=== PATIENT | female | born 1945 | race Caucasian/White ===

== ENCOUNTER 2021-12-21 12:48 | Inpatient (IN) ==
[2021-12-21 13:28] LABS: Appearance Urine Cloudy (Clear); Bacteria Urine Automated Negative (Negative); Bilirubin Urine Negative (Negative); Blood Urine Trace (Negative); Color Urine Yellow; Glucose Urine UA Negative (Negative); Ketones Urine Negative (Negative); Leukocyte Esterase Urine Negative (Negative); Nitrite Urine Negative (Negative); Protein Urine 2+ (Negative); RBC Urine Automated >30 /hpf (0-4); Urobilinogen Urine Negative (Negative)
[2021-12-21 13:53] LABS: Albumin Globulin Ratio 1.2 (0.9-2); Albumin Level 3.3 gm/dl (3.4-5.0); BUN Creatinine Ratio 15.3 (10-20); Bilirubin,Total 0.4 mg/dl (0.2-1.0); Calcium 9.1 mg/dl (8.5-10.1); Est GFR (African American) 45.4 ml/min; Est GFR (Non-African American) 39.2 ml/min; Globulin 2.7 gm/dl (2.5-4.0); Potassium 4.4 mmol/L (3.5-5.1)
--- NOTE | 2021-12-21 14:05 | CT Scan Report ---
CT head/brain wo con CLINICAL HISTORY: 76 years-old Female with weakness. Acute weakness TECHNIQUE: Multiple axial CT images of the head were obtained without contrast. A dose lowering tech nique was utilized adhering to the principles of ALARA. COMPARISON: None. FINDINGS: No acute intracranial hemorrhage, midline shift, intracranial mass, hydrocephalus, territorial ischem ia or abnormal extra-axial collection. Involutional changes. White matter hypodensities are suggestiv e of chronic microvascular ischemic disease. The calvarium is intact. Small left sphenoid sinus air-fluid level. The mastoid air cells are clear. Unremarkable soft tissues and orbits. IMPRESSION: No acute intracranial abnormality. ACT 112: Negative or not required by law. The above report was generated using voice recognition software. It may contain grammatical, syntax o r spelling errors. Electronically signed by: Mani Ramos M.D. 12/21/2021 2:04 PM
--- NOTE | 2021-12-21 14:09 | XRay Report ---
XR chest 1V portable HISTORY: 76 years-old Female illness acute shortness of breath COMPARISON: CT abdomen and pelvis of same day TECHNIQUE: AP view of the chest FINDINGS: Cardiac silhouette is mildly enlarged. No pneumothorax or overt pulmonary edema. There is opacity of the lateral right lung base with blunting of the costophrenic angle. Trace pleural effusions. Degener ative changes of the shoulders and spine. IMPRESSION: 1. Cardiomegaly without pulmonary edema. 2. Trace pleural effusions with lateral right lung base opacities suggestive of atelectasis/scarring. ACT 112: Negative or not required by law. The above report was generated using voice recognition software. It may contain grammatical, syntax o r spelling errors. Electronically signed by: Mani Ramos M.D. 12/21/2021 2:07 PM
--- NOTE | 2021-12-21 14:18 | XRay Report ---
XR pelvis 1-2V routine HISTORY: 76 years-old Female recurrent falls acute pelvic pain status post fall COMPARISON: CT abdomen and pelvis of same day TECHNIQUE: AP view of the pelvis FINDINGS: Left hip total joint arthroplasty with acetabular revision/ORIF changes. Cerclage wires with a metall ic cage involves the proximal left femoral diaphysis. Demineralized appearance of the bones. The dist al portion of the left femoral stem is centrally positioned within the medullary space. There is asso ciated lateral cortical thickening suggestive of chronic remodeling. No definite evidence of acute chavez rdware loosening or periprosthetic fracture. There is moderate osteoarthritis of the right hip. No acute fracture or dislocation identified. IMPRESSION: 1. Moderate right hip osteoarthritis without acute fracture or dislocation identified. 2. Left hip total joint arthroplasty with chronic revision changes as above. ACT 112: Negative or not required by law. The above report was generated using voice recognition software. It may contain grammatical, syntax o r spelling errors. Electronically signed by: Mani Ramos M.D. 12/21/2021 2:17 PM
--- NOTE | 2021-12-21 14:29 | CT Scan Report ---
CT SCAN OF THE ABDOMEN AND PELVIS WITHOUT IV CONTRAST CLINICAL HISTORY: Falls. COMPARISON STUDY: No priors. TECHNIQUE: CT scan of the abdomen and pelvis is performed from the lung bases to the proximal femora. Images are reviewed in the axial, sagittal, and coronal planes. IV contrast was not administered for this examination as per the referring clinician. Note that the examination was performed in signific antly suboptimal fashion without oral and IV contrast. A dose lowering technique was utilized adherin g to the principles of ALARA. FINDINGS: Lung bases: The heart is normal in size and without pericardial effusion. There is some attenuation o f the cardiac blood pool as compared to the myocardium suggesting anemia. There are small pleural eff usions with dependent atelectasis. A small hiatal hernia is noted. Liver: The unenhanced liver is normal in size, contour, and attenuation. There is no intrahepatic vinny iary ductal dilatation. Gallbladder: Unremarkable. Spleen: Normal in size and attenuation. Pancreas: There is a 4.1 cm ovoid cystic lesion in the pancreatic body is seen on image #121. This co ntains internal calcification/debris. The pancreatic tail appears atrophic. The unenhanced pancreas p roximal pancreas is moderately atrophic and otherwise grossly unremarkable. Adrenal glands: Unremarkable. Kidneys: The unenhanced kidneys are atrophic. There is an obstructing calculus/cluster of calculi wit hin the left proximal ureter at the level of L4. This is best seen on axial image #212 and extends ap proximately 16 mm in length. This causes mild left hydronephrosis. No additional left renal calculi a re identified. Numerous nonobstructing right renal calculi measuring up to 14 mm. There is no right u reteral stone or hydronephrosis. There is no evidence of contour deforming renal mass lesion. Abdominal vasculature: The abdominal aorta is normal in course and caliber noting advanced atheroscle rotic calcification. Bowel: There is moderate colonic diverticulosis without CT evidence of acute diverticulitis. No bowel obstruction is seen. Submucosal fat deposition is seen throughout the right colon. This is a nonspec ific finding but has been described in the setting of chronic inflammation. The appendix is not iden tified and reported surgically absent. Peritoneum: There is no intraperitoneal free air or abdominal ascites. Lymphadenopathy: A mildly enlarged left iliac chain node seen on image #224 measures 13 mm in short a xis. No additional enlarged lymph nodes are seen in the abdomen or pelvis. Pelvic viscera: Evaluation of the pelvis is significantly degraded by streak artifact from a left hip arthroplasty. The bladder is normal as visualized. The uterus is surgically absent. No adnexal lesio n is seen. Skeletal structures: The skeletal structures are osteopenic. No lytic or blastic lesions are seen. A left hip arthroplasty is in place. Advanced arthritic change is seen in the right hip. There is moder ate lumbosacral spondylosis. There is an age indeterminant impacted fracture of the subcapital right femur. IMPRESSION: 1. There is an obstructing calculus/cluster of calculi in the left proximal ureter as above. This david sures up to 16 mm in length and causes mild left hydronephrosis. 2. Additional nonobstructing calculi are seen in the right kidney. 3. There is no evidence of solid organ injury in the abdomen or pelvis on this unenhanced examination . 4. There is an age indeterminant impacted fracture of the subcapital right femur which may be chronic . Correlate with clinical findings. 5. Small pleural effusions. 6. There is a pathologically indeterminant 4.1 cm ovoid cystic lesion in the distal pancreatic body. This contains internal calcification/debris. Nonemergent follow-up with GI for possible endoscopic ul trasound is recommended. 7. Colonic diverticulosis without CT evidence of acute diverticulitis. 8. Additional findings as above. ACT 112: Negative or not required by law. Electronically signed by: Horacio Motta M.D. 12/21/2021 2:27 PM
--- NOTE | 2021-12-21 14:29 | CT Scan Report ---
CT cervical spine wo con CT DOSE: 2049.56 mGy.cm CLINICAL HISTORY: 76 years-old Female with recurrent falls. Acute neck injury status post fall COMPARISON: None. TECHNIQUE: Multiple axial CT images of the cervical spine were obtained without contrast. A dose low ering technique was utilized adhering to the principles of ALARA. FINDINGS: Multilevel degenerative changes include severe intervertebral disc space narrowing at C5-C6 and moderate to severe disc space narrowing at C6-C7. 3 mm anterolisthesis C7 on T1 is likely second lv to chronic facet arthrosis. There is severe multilevel facet arthropathy. Minimal superior endpla te compression of the T1 and T2 vertebral bodies is likely chronic. No acute cervical spine fracture or subluxation identified. Multilevel neural foraminal narrowing. The cervical soft tissues appear unremarkable. The visualized lung apices appear clear. IMPRESSION: No acute cervical spine fracture or subluxation. ACT 112: Negative or not required by law. The above report was generated using voice recognition software. It may contain grammatical, syntax o r spelling errors. Electronically signed by: Mani Ramos M.D. 12/21/2021 2:27 PM
[2021-12-21 14:36] LABS: Magnesium 1.5 mg/dl (1.7-2.4)
--- NOTE | 2021-12-21 14:36 | Emergency Department Note ---
History of Present Illness General Chief complaint: Illness Stated complaint: ILLNESS, NAUSEA, DECREASE IN MOBLITY Time Seen by Provider: 12/21/21 13:33 History of Present Illness Provider complaint: Illness Maximum Pain Intensity: 3 76-year-old female presents emergency department for illness. She states she been feeling increasingly weak. She reports she is not been able to eat or drink properly. Patient reports she has fallen repeatedly. He reports diffuse myalgias. Patient reports that her symptoms have worsened since being released from the hospital in [facility] Home Medications Medication Instructions Recorded Confirmed Type acetaminophen 300 mg-codeine 30 mg 1 tab PO Q6H PRN Moderate Pain 12/21/21 12/21/21 History tablet (Scale Score 5-6) albuterol sulfate 2.5 mg/3 mL 2.5 mg inhalation Q4H PRN 12/21/21 12/21/21 History (0.083 %) solution for nebulization Shortness Of Breath albuterol sulfate 90 mcg/actuation 2 puff inhalation DIRECTED PRN 12/21/21 History aerosol inhaler Shortness Of Breath alprazolam 0.5 mg tablet (Xanax) 0.5 mg PO BID PRN Sleep 12/21/21 12/21/21 History aspirin 81 mg tablet 81 mg PO DAILY 12/21/21 12/21/21 History carvedilol 12.5 mg tablet (Coreg) 12.5 mg PO BID 12/21/21 12/21/21 History clonidine HCl 0.2 mg tablet 0.2 mg PO BID 12/21/21 12/21/21 History ergocalciferol (vitamin D2) 1,250 1,250 mcg PO WK 12/21/21 12/21/21 History mcg (50,000 unit) capsule (Vitamin D2) hydralazine 100 mg tablet 100 mg PO TID 12/21/21 12/21/21 History loratadine 10 mg tablet (Claritin) 10 mg PO DAILY 12/21/21 12/21/21 History losartan 50 mg tablet 50 mg PO DAILY 12/21/21 12/21/21 History mirtazapine 30 mg tablet (Remeron) 30 mg PO HS 12/21/21 12/21/21 History pantoprazole 40 mg tablet,delayed 40 mg PO HS 10/04/22 10/04/22 History release (Protonix) umeclidinium 62.5 mcg-vilanterol 1 inh inhalation DAILY 12/21/21 12/21/21 History 25 mcg/actuation powdr for inhalation (Anoro Ellipta) Allergies Allergy/AdvReac Type Severity Reaction Status Date / Time amlodipine Allergy Unknown PT'S LIST Verified 12/21/21 16:08 cefuroxime Allergy Unknown PT'S LIST Verified 12/21/21 16:08 Cephalosporins Allergy Unknown PT'S LIST Verified 12/21/21 16:08 ciprofloxacin Allergy Unknown PT'S LIST Verified 12/21/21 16:08 erythromycin base Allergy Unknown PT'S LIST Verified 12/21/21 16:08 Past Med/Surg History Medical History COPD (chronic obstructive pulmonary disease) Fracture of right hip HLD (hyperlipidemia) HTN (hypertension) No pertinent family history Rhabdomyolysis Surgical History History of hip surgery History of removal of ovarian cyst Hx of appendectomy Hx of hernia repair Hx of hysterectomy Family History Mother Coronary heart disease Father Coronary heart disease Brother Diabetes Brother Coronary heart disease Other Heart disease Hypertension Social History Smoking Status: Former smoker Second Hand Exposure: No; Do You Dip or Chew Tobacco: No; Tobacco Cessation Education Requested by Patient: No Hx Alcohol Use: No Hx Substance Use: No Preferred Language: Welsh Communication Ability: Effective Manager Call Required: No Beliefs That Will Affect Care: None Current Living Situation: Family Feels Safe at Home: Yes Safety Concerns: Feels Safe At This Time Assistive Devices: Oxygen - Continuous, Walker and Wheelchair Review of Systems A total of 10 systems reviewed and were otherwise negative Physical Exam Vital Signs Vital Signs - 24 hr 12/21/21 12:56 12/21/21 12:56 Temperature 37.1 C 37.1 C Temperature Source Oral Oral Pulse Rate 65 Pulse Rate [Finger] 65 Respiratory Rate 17 17 Respiratory Effort / Characteristics Non-Labored Non-Labored Respiratory Depth Normal Normal Blood Pressure 219/85 H Blood Pressure [Right Arm] 219/85 H Blood Pressure Mean 129 Blood Pressure Mean [Right Arm] 129 Blood Pressure Position Sitting Pulse Oximetry 99 99 Oxygen Delivery Method Nasal Cannula Nasal Cannula Oxygen Flow Rate 3 3 Sepsis Recent Fever Within 48 Hours No Sepsis New/Unexplained Change in Mental Status No Sepsis Action Taken by Nursing No Action Required Physical Exam HENT: Exam performed. -Head: Normocephalic and atraumatic. -Right Ear: External ear normal. No mastoid tenderness. -Left Ear: External ear normal. No mastoid tenderness. -Mouth/Throat: The oropharynx is clear and moist. No trismus in the jaw. No dental abscesses or uvula swelling. No oropharyngeal exudate or tonsillar abscesses. EYES: Conjunctivae and EOM are normal. Pupils are equal, round, and reactive to light. Right eye exhibits no discharge. Left eye exhibits no discharge. No s cleral icterus. NECK: Normal range of motion. Neck supple. No JVD present. No spinous process tenderness present. No carotid bruit present. No rigidity. No tracheal deviation and normal range of motion present. No Brudzinski's sign and no Kernig's sign noted. CV: Normal rate, regular rhythm, normal heart sounds and intact distal pulses. There is no peripheral edema. Palpable radial pulses bue. PULM/CHEST: Effort normal and breath sounds normal. No respiratory distress. No stridor. She has no wheezes. She has no rales. -Chest Wall: She exhibits no tenderness. ABD: The abdomen is soft. MUSC/SKEL: Pelvis stable NEURO: Motor and sensation grossly intact. GCS eye subscore is 4. GCS verbal mendosa bscore is 5. GCS motor subscore is 6. Cerebellar tests wnl. SKIN: Skin is warm and dry. She is not diaphoretic. PSYCH: She has a normal mood and affect. Behavior is normal. Judgment and thought content normal. Course Course 1333: The patient was evaluated in room B5. A complete history and physical exam was performed Administered Medications Discontinued Medications Hydromorphone HCl (Hydromorphone Inj 0.5 Mg/0.5 Ml Syr) 0.5 mg IV NOW STA Stop: 12/21/21 16:32 Last Admin: 12/21/21 16:53 Dose: 0.5 mg Documented By: HUMZA Magnesium Sulfate/Dextrose (Magnesium Sulfate / D5w) 1 gm in 100 mls @ 100 mls/hr IV NOW STA Stop: 12/21/21 16:31 Last Infusion: 12/21/21 16:59 Dose: 0 mls/hr Documented By: HUMZA(2) Admin: 12/21/21 15:53 Dose: 100 mls/hr Documented By: HUMZA(2) Nicardipine HCl 25 mg/ Sodium (Chloride) 250 mls @ 50 mls/hr IV .Q5H SABAS; Protocol Stop: 01/20/22 16:29 Last Admin: 12/21/21 16:47 Dose: Not Given Documented By: HUMZA(2) Losartan Potassium (Losartan Potassium 50 Mg Tab) 50 mg PO QAM STA Stop: 12/21/21 16:36 Last Admin: 12/21/21 16:47 Dose: Not Given Documented By: HUMZA(2) Losartan Potassium (Losartan Potassium 50 Mg Tab) 50 mg PO NOW STA Stop: 12/21/21 16:37 Last Admin: 12/21/21 16:53 Dose: 50 mg Documented By: HUMZA Medical Decision Making Laboratory Data Result diagrams: 12/21/21 13:00 12/21/21 13:00 Lab Results 12/21/21 12/21/21 12/21/21 Range/Units 13:00 13:00 13:00 WBC 12.94 H (4.8-10.8) K/ul RBC 2.88 L (3.93-5.22) M/uL Hgb 8.3 L (12.0-16.0) g/dl Hct 27.1 L (34.1-44.9) % MCV 94.1 (80.0-100.0) fL MCH 28.8 (25.0-34.0) pg MCHC 30.6 L (32.0-36.0) g/dL RDW Std Deviation 50.0 H (36.4-46.3) fL RDW Coeff of [place] 14.4 (11.5-14.5) % Plt Count 212 (130-400) K/uL MPV 10.5 (9.4-12.3) fL Immature Gran % (Auto) 0.6 % Neut % (Auto) 86.7 % Lymph % (Auto) 6.0 % [place] % (Auto) 5.7 % Eos % (Auto) 0.7 % Baso % (Auto) 0.3 % Neut # (Auto) 11.21 H (1.4-6.5) K/uL Lymph # (Auto) 0.78 L (1.2-3.4) K/uL [place] # (Auto) 0.74 (0.24-0.82) K/uL Eos # (Auto) 0.09 (0-0.50) K/uL Baso # (Auto) 0.04 (0-0.2) K/uL Immature Gran # (Auto) 0.08 H (0.00-0.02) K/uL PT 11.6 (9.0-12.0) Seconds INR 1.1 (0.9-1.1) APTT 30.5 (21.0-31.0) Seconds PTT Ratio 1.1 VBG pH (7.36-7.41) VBG pCO2 (38-50) mmHg VBG pO2 mmHg VBG HCO3 mmol/L VBG O2 Saturation % VBG Base Excess mEq/L Sodium 143 (136-145) mmol/L Potassium 4.4 (3.5-5.1) mmol/L Chloride 109 H (98-107) mmol/L Carbon Dioxide 27 (21-32) mmol/L Anion Gap 7 (3-11) BUN 20 (6-23) mg/dl Creatinine 1.31 H (0.6-1.2) mg/dl Est Cr Clr Drug Dosing 35.0 ml/min Est GFR ( Amer) 45.4 ml/min Est GFR (Non-Af Amer) 39.2 ml/min BUN/Creatinine Ratio 15.3 (10-20) Glucose 140 H (70-99(Fasting)) mg/dl Lactate (0.4-2.0) mmol/L Calcium 9.1 (8.5-10.1) mg/dl Magnesium (1.7-2.4) mg/dl Total Bilirubin 0.4 (0.2-1.0) mg/dl AST 8 L (13-39) U/L ALT 6 L (7-52) U/L Alkaline Phosphatase 65 (34-104) U/L Total Creatine Kinase (26-192) U/L Troponin I High Sens (0-14) pg/ml Total Protein 6.0 (6.0-8.3) gm/dl Albumin 3.3 L (3.4-5.0) gm/dl Globulin 2.7 (2.5-4.0) gm/dl Albumin/Globulin Ratio 1.2 (0.9-2) Lipase (11-82) U/L Urine Color Urine Appearance (Clear) Urine pH (4.5-7.5) Ur Specific [place] (1.000-1.030) Urine Protein (Negative) Urine Glucose (UA) (Negative) Urine Ketones (Negative) Urine Blood (Negative) Urine Nitrite (Negative) Urine Bilirubin (Negative) Urine Urobilinogen (Negative) Ur Leukocyte Esterase (Negative) Urine WBC (Auto) (0-5) /hpf Urine RBC (Auto) (0-4) /hpf U Hyaline Cast (Auto) (0-5) /lpf U Epithel Cells (Auto) (0-5) /lpf Urine Bacteria (Auto) (Negative) 12/21/21 12/21/21 12/21/21 Range/Units 13:00 13:10 14:37 WBC (4.8-10.8) K/ul RBC (3.93-5.22) M/uL Hgb (12.0-16.0) g/dl Hct (34.1-44.9) % MCV (80.0-100.0) fL MCH (25.0-34.0) pg MCHC (32.0-36.0) g/dL RDW Std Deviation (36.4-46.3) fL RDW Coeff of [place] (11.5-14.5) % Plt Count (130-400) K/uL MPV (9.4-12.3) fL Immature Gran % (Auto) % Neut % (Auto) % Lymph % (Auto) % [place] % (Auto) % Eos % (Auto) % Baso % (Auto) % Neut # (Auto) (1.4-6.5) K/uL Lymph # (Auto) (1.2-3.4) K/uL [place] # (Auto) (0.24-0.82) K/uL Eos # (Auto) (0-0.50) K/uL Baso # (Auto) (0-0.2) K/uL Immature Gran # (Auto) (0.00-0.02) K/uL PT (9.0-12.0) Seconds INR (0.9-1.1) APTT (21.0-31.0) Seconds PTT Ratio VBG pH 7.34 L (7.36-7.41) VBG pCO2 56 H (38-50) mmHg VBG pO2 59 mmHg VBG HCO3 30 mmol/L VBG O2 Saturation 92.1 % VBG Base Excess 3.1 mEq/L Sodium (136-145) mmol/L Potassium (3.5-5.1) mmol/L Chloride (98-107) mmol/L Carbon Dioxide (21-32) mmol/L Anion Gap (3-11) BUN (6-23) mg/dl Creatinine (0.6-1.2) mg/dl Est Cr Clr Drug Dosing ml/min Est GFR ( Amer) ml/min Est GFR (Non-Af Amer) ml/min BUN/Creatinine Ratio (10-20) Glucose (70-99(Fasting)) mg/dl Lactate (0.4-2.0) mmol/L Calcium (8.5-10.1) mg/dl Magnesium 1.5 L (1.7-2.4) mg/dl Total Bilirubin (0.2-1.0) mg/dl AST (13-39) U/L ALT (7-52) U/L Alkaline Phosphatase (34-104) U/L Total Creatine Kinase 12 L (26-192) U/L Troponin I High Sens 48.2 H (0-14) pg/ml Total Protein (6.0-8.3) gm/dl Albumin (3.4-5.0) gm/dl Globulin (2.5-4.0) gm/dl Albumin/Globulin Ratio (0.9-2) Lipase 61 (11-82) U/L Urine Color Yellow Urine Appearance Cloudy A (Clear) Urine pH 5.0 (4.5-7.5) Ur Specific [place] 1.020 (1.000-1.030) Urine Protein 2+ H (Negative) Urine Glucose (UA) Negative (Negative) Urine Ketones Negative (Negative) Urine Blood Trace H (Negative) Urine Nitrite Negative (Negative) Urine Bilirubin Negative (Negative) Urine Urobilinogen Negative (Negative) Ur Leukocyte Esterase Negative (Negative) Urine WBC (Auto) 1-5 (0-5) /hpf Urine RBC (Auto) >30 H (0-4) /hpf U Hyaline Cast (Auto) 1-5 (0-5) /lpf U Epithel Cells (Auto) 5-10 H (0-5) /lpf Urine Bacteria (Auto) Negative (Negative) 12/21/21 12/21/21 Range/Units 14:37 14:37 WBC (4.8-10.8) K/ul RBC (3.93-5.22) M/uL Hgb (12.0-16.0) g/dl Hct (34.1-44.9) % MCV (80.0-100.0) fL MCH (25.0-34.0) pg MCHC (32.0-36.0) g/dL RDW Std Deviation (36.4-46.3) fL RDW Coeff of [place] (11.5-14.5) % Plt Count (130-400) K/uL MPV (9.4-12.3) fL Immature Gran % (Auto) % Neut % (Auto) % Lymph % (Auto) % [place] % (Auto) % Eos % (Auto) % Baso % (Auto) % Neut # (Auto) (1.4-6.5) K/uL Lymph # (Auto) (1.2-3.4) K/uL [place] # (Auto) (0.24-0.82) K/uL Eos # (Auto) (0-0.50) K/uL Baso # (Auto) (0-0.2) K/uL Immature Gran # (Auto) (0.00-0.02) K/uL PT (9.0-12.0) Seconds INR (0.9-1.1) APTT (21.0-31.0) Seconds PTT Ratio VBG pH (7.36-7.41) VBG pCO2 (38-50) mmHg VBG pO2 mmHg VBG HCO3 mmol/L VBG O2 Saturation % VBG Base Excess mEq/L Sodium (136-145) mmol/L Potassium (3.5-5.1) mmol/L Chloride (98-107) mmol/L Carbon Dioxide (21-32) mmol/L Anion Gap (3-11) BUN (6-23) mg/dl Creatinine (0.6-1.2) mg/dl Est Cr Clr Drug Dosing ml/min Est GFR ( Amer) ml/min Est GFR (Non-Af Amer) ml/min BUN/Creatinine Ratio (10-20) Glucose (70-99(Fasting)) mg/dl Lactate 0.6 (0.4-2.0) mmol/L Calcium (8.5-10.1) mg/dl Magnesium (1.7-2.4) mg/dl Total Bilirubin (0.2-1.0) mg/dl AST (13-39) U/L ALT (7-52) U/L Alkaline Phosphatase (34-104) U/L Total Creatine Kinase 14 L (26-192) U/L Troponin I High Sens (0-14) pg/ml Total Protein (6.0-8.3) gm/dl Albumin (3.4-5.0) gm/dl Globulin (2.5-4.0) gm/dl Albumin/Globulin Ratio (0.9-2) Lipase (11-82) U/L Urine Color Urine Appearance (Clear) Urine pH (4.5-7.5) Ur Specific [place] (1.000-1.030) Urine Protein (Negative) Urine Glucose (UA) (Negative) Urine Ketones (Negative) Urine Blood (Negative) Urine Nitrite (Negative) Urine Bilirubin (Negative) Urine Urobilinogen (Negative) Ur Leukocyte Esterase (Negative) Urine WBC (Auto) (0-5) /hpf Urine RBC (Auto) (0-4) /hpf U Hyaline Cast (Auto) (0-5) /lpf U Epithel Cells (Auto) (0-5) /lpf Urine Bacteria (Auto) (Negative) Imaging Data Radiologist's Impression: Chest X-Ray 12/21/21 13:15 XR chest 1V portable HISTORY: 76 years-old Female illness acute shortness of breath COMPARISON: CT abdomen and pelvis of same day TECHNIQUE: AP view of the chest FINDINGS: Cardiac silhouette is mildly enlarged. No pneumothorax or overt pulmonary edema. There is opacity of the lateral right lung base with blunting of the costophrenic angle. Trace pleural effusions. Degenerative changes of the shoulders and spine. IMPRESSION: 1. Cardiomegaly without pulmonary edema. 2. Trace pleural effusions with lateral right lung base opacities suggestive of atelectasis/scarring. ACT 112: Negative or not required by law. The above report was generated using voice recognition software. It may contain grammatical, syntax or spelling errors. Electronically signed by: Mani Raoms M.D. 12/21/2021 2:[address] 12/21/21 13:36 CT head/brain wo con CLINICAL HISTORY: 76 years-old Female with weakness. Acute weakness TECHNIQUE: Multiple axial CT images of the head were obtained without contrast. A dose lowering technique was utilized adhering to the principles of ALARA. COMPARISON: None. FINDINGS: No acute intracranial hemorrhage, midline shift, intracranial mass, hydrocephalus, territorial ischemia or abnormal extra-axial collection. Involut ional changes. White matter hypodensities are suggestive of chronic microvascular ischemic disease. The calvarium is intact. Small left sphenoid sinus air-fluid level. The mastoid air cells are clear. Unremarkable soft tissues and orbits. IMPRESSION: No acute intracranial abnormality. ACT 112: Negative or not required by law. The above report was generated using voice recognition software. It may contain grammatical, syntax or spelling errors. Electronically signed by: Mani Ramos M.D. 12/21/2021 2:[address] 12/21/21 13:40 CT cervical spine wo con CT DOSE: 2049.56 mGy.cm CLINICAL HISTORY: 76 years-old Female with recurrent falls. Acute neck injury status post fall COMPARISON: None. TECHNIQUE: Multiple axial CT images of the cervical spine were obtained without contrast. A dose lowering technique was utilized adhering to the principles of ALARA. FINDINGS: Multilevel degenerative changes include severe intervertebral disc space narrowing at C5-C6 and moderate to severe disc space narrowing at C6-C7. 3 mm anterolisthesis C7 on T1 is likely secondary to chronic facet arthrosis. T here is severe multilevel facet arthropathy. Minimal superior endplate compression of the T1 and T2 vertebral bodies is likely chronic. No acute cervical spine fracture or subluxation identified. Multilevel neural foraminal narrowing. The cervical soft tissues appear unremarkable. The visualized lung apices appear clear. IMPRESSION: No acute cervical spine fracture or subluxation. ACT 112: Negative or not required by law. The above report was generated using voice recognition software. It may contain grammatical, syntax or spelling errors. Electronically signed by: Mani Ramos M.D. 12/21/2021 2:27 PM Abdomen/Pelvis CT 12/21/21 13:41 CT SCAN OF THE ABDOMEN AND PELVIS WITHOUT IV CONTRAST CLINICAL HISTORY: Falls. COMPARISON STUDY: No priors. TECHNIQUE: CT scan of the abdomen and pelvis is performed from the lung bases to the proximal femora. Images are reviewed in the axial, sagittal, and coronal planes. IV contrast was not administered for this examination as per the referring clinician. Note that the examination was performed in significantly suboptimal fashion without oral and IV contrast. A dose lowering technique was utilized adhering to the principles of ALARA. FINDINGS: Lung bases: The heart is normal in size and without pericardial effusion. There is some attenuation of the cardiac blood pool as compared to the myocardium suggesting anemia. There are small pleural effusions with dependent atelectasis. A small hiatal hernia is noted. Liver: The unenhanced liver is normal in size, contour, and attenuation. There is no intrahepatic biliary ductal dilatation. Gallbladder: Unremarkable. Spleen: Normal in size and attenuation. Pancreas: There is a 4.1 cm ovoid cystic lesion in the pancreatic body is seen on image #121. This contains internal calcification/debris. The pancreatic tail appears atrophic. The unenhanced pancreas proximal pancreas is moderately atrophic and otherwise grossly unremarkable. Adrenal glands: Unremarkable. Kidneys: The unenhanced kidneys are atrophic. There is an obstructing calculus/cluster of calculi within the left proximal ureter at the level of L4. This is best seen on axial image #212 and extends approximately 16 mm in length. This causes mild left hydronephrosis. No additional left renal calculi are identified. Numerous nonobstructing right renal calculi measuring up to 14 mm. There is no right ureteral stone or hydronephrosis. There is no evidence of contour deforming renal mass lesion. Abdominal vasculature: The abdominal aorta is normal in course and caliber noting advanced atherosclerotic calcification. Bowel: There is moderate colonic diverticulosis without CT evidence of acute diverticulitis. No bowel obstruction is seen. Submucosal fat deposition is seen throughout the right colon. This is a nonspecific finding but has been described in the setting of chronic inflammation. The appendix is not identified and reported surgically absent. Peritoneum: There is no intraperitoneal free air or abdominal ascites. Lymphadenopathy: A mildly enlarged left iliac chain node seen on image #224 measures 13 mm in short axis. No additional enlarged lymph nodes are seen in the abdomen or pelvis. Pelvic viscera: Evaluation of the pelvis is significantly degraded by streak artifact from a left hip arthroplasty. The bladder is normal as visualized. The uterus is surgically absent. No adnexal lesion is seen. Skeletal structures: The skeletal structures are osteopenic. No lytic or blastic lesions are seen. A left hip arthroplasty is in place. Advanced arthritic change is seen in the right hip. There is moderate lumbosacral spondylosis. There is an age indeterminant impacted fracture of the subcapital right femur. IMPRESSION: 1. There is an obstructing calculus/cluster of calculi in the left proximal ureter as above. This measures up to 16 mm in length and causes mild left hydronephrosis. 2. Additional nonobstructing calculi are seen in the right kidney. 3. There is no evidence of solid organ injury in the abdomen or pelvis on this unenhanced examination. 4. There is an age indeterminant impacted fracture of the subcapital right femur which may be chronic. Correlate with clinical findings. 5. Small pleural effusions. 6. There is a pathologically indeterminant 4.1 cm ovoid cystic lesion in the distal pancreatic body. This contains internal calcification/debris. Nonemergent follow-up with GI for possible endoscopic ultrasound is recommended. 7. Colonic diverticulosis without CT evidence of acute diverticulitis. 8. Additional findings as above. ACT 112: Negative or not required by law. Electronically signed by: Horacio Motta M.D. 12/21/2021 2:27 PM Pelvis X-Ray 12/21/21 13:41 XR pelvis 1-2V routine HISTORY: 76 years-old Female recurrent falls acute pelvic pain status post fall COMPARISON: CT abdomen and pelvis of same day TECHNIQUE: AP view of the pelvis FINDINGS: Left hip total joint arthroplasty with acetabular revision/ORIF changes. Cerclage wires with a metallic cage involves the proximal left femoral diaphysis. Demineralized appearance of the bones. The distal portion of the left femoral stem is centrally positioned within the medullary space. There is associated lateral cortical thickening suggestive of chronic remodeling. No definite evidence of acute hardware loosening or periprosthetic fracture. There is moderate osteoarthritis of the right hip. No acute fracture or dislocation identified. IMPRESSION: 1. Moderate right hip osteoarthritis without acute fracture or dislocation identified. 2. Left hip total joint arthroplasty with chronic revision changes as above. ACT 112: Negative or not required by law. The above report was generated using voice recognition software. It may contain grammatical, syntax or spelling errors. Electronically signed by: Mani Ramos M.D. 12/21/2021 2:17 PM ECG Data Indication: + weakness Rate (beats per minute): 66 Rhythm: + junctional ECG Intervals/blocks: + Normal QRS and + Normal QT-c ECG ST segments: + Normal ST segments MDM Narrative Cardiac monitoring: An order was placed for continuous cardiac monitoring. The monitor shows a rate of 70 with sinus rhythm Labs show leukocytosis of 12.94. Magnesium is low at 1.5. Magnesium repletion will be begun in the emergency department. Troponin elevated at 48.2. Urinalysis negative. Imaging shows no traumatic injury but does show large 16 mm kidney stone with hydroureter and hydronephrosis. Discussed case with Dr. Kline urology and states he will be on consult. Discussed the case with [facility] hospitalist team who stated to admit to Dr. Brody Impression & Plan Hypomagnesemia, Frequent falls, Hydronephrosis concurrent with and due to calculi of kidney and ureter Discharge Plan Visit Data Chief Complaint: Illness Stated Complaint: ILLNESS, NAUSEA, DECREASE IN MOBLITY ED Provider: Laith Perez Discharge Problem: Hypomagnesemia, Frequent falls, Hydronephrosis concurrent with and due to calculi of kidney and ureter Patient Disposition: Admitted As Inpatient Discharge Instructions Interventions: ED Discharge Assessment Last Done: 12/21/21 18:06
[2021-12-21 14:39] LABS: Basophils # (auto) 0.04 K/uL (0-0.2); Basophils % (auto) 0.3 %; Eosinophils # (auto) 0.09 K/uL (0-0.50); Eosinophils % (auto) 0.7 %; Hematocrit (blood only) 27.1 % (34.1-44.9); Hemoglobin 8.3 g/dl (12.0-16.0); Immature Granulocytes # (auto) 0.08 K/uL (0.00-0.02); Immature Granulocytes % (auto) 0.6 %; Lymphocytes # (auto) 0.78 K/uL (1.2-3.4); Mean Corpuscular Hemoglobin 28.8 pg (25.0-34.0); Mean Corpuscular Hgb Conc 30.6 g/dL (32.0-36.0); Mean Corpuscular Volume 94.1 fL (80.0-100.0); Mean Platelet Volume 10.5 fL (9.4-12.3); Monocytes # (auto) 0.74 K/uL (0.24-0.82); Monocytes % (auto) 5.7 %; Neutrophils # (auto) 11.21 K/uL (1.4-6.5); Neutrophils % (auto) 86.7 %; Platelet Count 212 K/uL (130-400); RDW Coefficient of Variation 14.4 % (11.5-14.5); Red Blood Count 2.88 M/uL (3.93-5.22); White Blood Count 12.94 K/ul (4.8-10.8)
[2021-12-21 14:42] LABS: INR 1.1 (0.9-1.1); Partial Thromboplastin Ratio 1.1; Partial Thromboplastin Time 30.5 Seconds (21.0-31.0); Prothrombin Time 11.6 Seconds (9.0-12.0)
[2021-12-21 14:51] LABS: Base Excess VBG 3.1 mEq/L; HCO3 VBG 30 mmol/L; Oxygen Saturation VBG 92.1 %; PCO2 VBG 56 mmHg (38-50); PO2 VBG 59 mmHg; pH VBG 7.34 (7.36-7.41)
[2021-12-21 14:58] LABS: Troponin I High Sensitivity 48.2 pg/ml (0-14)
[2021-12-21] MEDS ORDERED: MAGNESIUM SULFATE / D5W 1 GM/100 ML BAG IV STA ×2 (15:32→18:28)
--- NOTE | 2021-12-21 15:45 | History & Physical Report ---
Date of Service December 21, 2021 Assessment & Plan (1) Kidney stone: Plan: - Admit to med surg with tele - CT reviwed showing: The unenhanced kidneys are atrophic. There is an obstructing calculus/cluster of calculi within the left proximal ureter at the level of L4. This is best seen on axial image #212 and extends approximately 16 mm in length. This causes mild left hydronephrosis. No additional left renal calculi are identified. Numerous nonobstructing right renal calculi measuring up to 14 mm. There is no right ureteral stone or hydronephrosis. There is no evidence of contour deforming renal mass lesion. - Last CT from 12/01/21 shows only a 3 mm right nonobstructing nephrolith in Epic - Flomax, strain all urine, continue IVFx x 1 more bag for now with trace pleural effusions - UA reviewed and does not appear to be infected but is cloudy with >30 RBCs, await urine culture - Afebrile, WBC is 12.94 - Urology consulted - NPO after midnight in case of surgical procedure - Pain control and bowel regimen ordered (2) Frequent falls: Plan: - Noted chronic right subcapital hip fracture and previous hx of left hip fracture surgeries - PT/OT consults, pt uses a walker and wheelchair at home - Fall precautions (3) Weakness: Plan: - Secondary to above (4) Fracture of right hip: Plan: - New since previous admission - Today noted on CT-- from outpatient review there was a CT on 12/04/21 which mentions osteoarthritis of the hip but does not comment on fracture, likely sustained this sometime in the past few weeks while was at home during one of her numerous falls. She reports hip pain bilaterally today and states this is chronic. Has been using tylenol + codein at home and xanax to sleep at home. - Ortho consult placed - PT/OTs - Pain control and bowel regimen ordered (5) Elevated troponin: (6) Hypertensive urgency: (7) HTN (hypertension): Plan: - BP 220/80-90 while at bedside, - Pt is compliant with medications at home per report, daughter is RN and manages her medications. Took meds this morning. - Takes clonidine 0.2 mg BID, losartan 50 mg daily, carvedilol 12.5 mg BID, hydralazine 100 mg TID ---- give additional losartan 50 mg now and will increase am dose to 100 mg daily - Troponin elevated at 48.2, will trend - Denies chest pain, admits to recent increased shortness of breath - ? Anemia contributing? Hgb 8.3, baseline 11-27 (8) Hypomagnesemia: Plan: - Replace with 2 g IV mag upon admission, follow with am labs (9) HLD (hyperlipidemia): Plan: - Not on statin therapy, check lipids with am labs (10) COPD (chronic obstructive pulmonary disease): Plan: - Hx of smoking use, quit 1.5 yrs ago. - Continue on albuterol prn and Anoro Ellipta - Trace pleural effusions, avoid excess IVFs. (11) Anemia: Plan: - Hgb of 8.3 today , baseline of 11-27 - guiac all stools with diarrhea complaints, check c diff, pt is on baby aspirin which for now will continue DVT ppx: - scds tonight, consider chemical ppx in am CODE: DNR/DNI Dispo: From home, likely to remain in the hospital x 2 days History of Present Illness Chief Complaint: Falls, weakness Primary Care Provider: NO PCP This is a 76 yo F with PMhx of HTN, HLD, COPD who presents with repeated falls, weakness and generalized pain. She was recently admitted to [facility] for NANCY/rhabdomyolysis and falls from Dec 01- and was discharged home with health services. This morning she was significantly nauseous, vomiting, had poor po intake and diarrhea the past few days. She reports feeling achey pain in the right side of her abdomen which moves down into the lower left side, 7/10 and seems to wax and wanes. She has been taking Tylenol #3 along with more tylenol and 0.25 mg xanax to help her fall asleep. She has utilized these meds for almost 2 weeks adn the pain has progressed. Today the pain in her abdomen was worse so family called EMS and brought her here to the hospital. She has been falling recently, and last time was about 2 weeks ago while she was trying to get in bed, and instead slid off the side of the bed. Pt has been living with her daughter, Erica, and granddaughter is also local and have been taking care of her. Pt notes " I feel like my BP meds are doing me in". She feels dizzy, lightheaded and worse after taking them. She is compliant with her medications as her daughter helps her with it. She did not vomit today after taking medications. Pt BP today is significantly elevated at ~220/80s while at bedside. She notes her BP has been difficult to control. On dc summary from the last admission she was started on clonidin 0.2 mg BID and losartan 50 mg QAM. Pt wears 3 L O2 at baseline, this was increased from 2L to 3 L after her last admission. She quit smoking 1.5 years ago. Pt does use her inhalers as directed and nebulizer if needed. Denies any recent worsening shortness of breath. Allergies Allergy/AdvReac Type Severity Reaction Status Date / Time amlodipine Allergy Unknown PT'S LIST Verified 12/21/21 16:08 cefuroxime Allergy Unknown PT'S LIST Verified 12/21/21 16:08 Cephalosporins Allergy Unknown PT'S LIST Verified 12/21/21 16:08 ciprofloxacin Allergy Unknown PT'S LIST Verified 12/21/21 16:08 erythromycin base Allergy Unknown PT'S LIST Verified 12/21/21 16:08 Home Medications Medication Instructions Recorded Confirmed Type acetaminophen 300 mg-codeine 30 mg 1 tab PO Q6H PRN Moderate Pain 12/21/21 12/21/21 History tablet (Scale Score 5-6) albuterol sulfate 2.5 mg/3 mL 2.5 mg inhalation Q4H PRN 12/21/21 12/21/21 History (0.083 %) solution for nebulization Shortness Of Breath albuterol sulfate 90 mcg/actuation 2 puff inhalation DIRECTED PRN 12/21/21 12/21/21 History aerosol inhaler Shortness Of Breath alprazolam 0.5 mg tablet (Xanax) 0.5 mg PO BID PRN Sleep 12/21/21 12/21/21 History aspirin 81 mg tablet 81 mg PO DAILY 12/21/21 12/21/21 History carvedilol 12.5 mg tablet (Coreg) 12.5 mg PO BID 12/21/21 12/21/21 History clonidine HCl 0.2 mg tablet 0.2 mg PO BID 12/21/21 12/21/21 History ergocalciferol (vitamin D2) 1,250 1,250 mcg PO WK 12/21/21 12/21/21 History mcg (50,000 unit) capsule (Vitamin D2) hydralazine 100 mg tablet 100 mg PO TID 12/21/21 12/21/21 History loratadine 10 mg tablet (Claritin) 10 mg PO DAILY 12/21/21 12/21/21 History losartan 50 mg tablet 50 mg PO DAILY 12/21/21 12/21/21 History mirtazapine 30 mg tablet (Remeron) 30 mg PO HS 12/21/21 12/21/21 History pantoprazole 40 mg tablet,delayed 40 mg PO HS 12/21/21 12/21/21 History release (Protonix) umeclidinium 62.5 mcg-vilanterol 1 inh inhalation DAILY 12/21/21 12/21/21 History 25 mcg/actuation powdr for inhalation (Anoro Ellipta) Past Med/Surg History Medical History (Updated 12/21/21 @ 17:29 by Talita Hickman PA-C) COPD (chronic obstructive pulmonary disease) Fracture of right hip HLD (hyperlipidemia) HTN (hypertension) No pertinent family history Rhabdomyolysis Surgical History (Updated 12/21/21 @ 16:19 by Talita Hickman PA-C) History of hip surgery History of removal of ovarian cyst Hx of appendectomy Hx of hernia repair Hx of hysterectomy Family History (Updated 12/21/21 @ 16:22 by Talita Hickman PA-C) Mother Coronary heart disease Father Coronary heart disease Brother Diabetes Brother Coronary heart disease Other Heart disease Hypertension Social History Smoking Status: Former smoker Feels Safe at Home: Yes Review of Systems Review of Systems: Constitutional: No fever, sweats or chills Eyes: No diplopia, no worsening or blurred vision ENT: normal hearing, no trouble swallowing Respiratory: No cough, sputum, dyspnea at rest or on exertion Cardiovascular: No chest pain, tightness or palpitations Abdomen: +See HPI, + pain, nausea, vomiting, diarrhea Musculoskeletal: + chronic hip pain s/p left side multiple surgeries and R side with chronic hip fracture, no calf pain, no swelling Neurologic: + generalized weakness,no numbness/tingling, + balance problems, uses a walker and a wheelchair at home Psychiatric: No anxiety or depression Skin: No rash or itch Physical Exam Physical Exam: General: awake, alert, no apparent distress Head: Normocephalic, atraumatic ENT: PERRL, EOMI, no pharyngeal exudate, mucous membranes moist Chest: + on 3L via NC, faint wheeze, diminished breath sounds at right base, no rales or rhonchi Cardiac: Regular rate and rhythm, no murmur, no JVD, normal peripheral pulses, good capillary refill Abdominal: NABS x 4 quadrants, soft, nondistended, +tender to palpation in R flank region and LLQ, negative Murpheys sign, no rebound or guarding Extremities: Normal inspection, no peripheral edema or erythema, calfs nontender to palpation Psych: Normal mood and affect Neuro: AAO x 3, strength intact bilaterally and rated 4/5, no motor deficits, speech is clear, no peripheral sensory deficits Results & Data Results & Data ([facility]) Vital Signs (Past 12 Hours) Vital Signs Temp Pulse Pulse Resp BP BP Pulse Ox 12/21/21 12:56 37.1 C 65 17 219/85 H 99 12/21/21 12:56 37.1 C 65 17 219/85 H 99 O2 Del Method O2 Flow Rate 12/21/21 12:56 Nasal Cannula 3 12/21/21 12:56 Nasal Cannula 3 Laboratory Results 12/21/21 12/21/21 12/21/21 14:37 14:37 14:37 WBC RBC Hgb Hct MCV MCH MCHC RDW Std Deviation RDW Coeff of [place] Plt Count MPV Immature Gran % (Auto) Neut % (Auto) Lymph % (Auto) [place] % (Auto) Eos % (Auto) Baso % (Auto) Neut # (Auto) Lymph # (Auto) [place] # (Auto) Eos # (Auto) Baso # (Auto) Immature Gran # (Auto) PT INR APTT PTT Ratio VBG pH 7.34 L VBG pCO2 56 H VBG pO2 59 VBG HCO3 30 VBG O2 Saturation 92.1 VBG Base Excess 3.1 Sodium Potassium Chloride Carbon Dioxide Anion Gap BUN Creatinine Est Cr Clr Drug Dosing Est GFR ( Amer) Est GFR (Non-Af Amer) BUN/Creatinine Ratio Glucose Lactate 0.6 Calcium Magnesium Total Bilirubin AST ALT Alkaline Phosphatase Total Creatine Kinase 14 L Troponin I High Sens Total Protein Albumin Globulin Albumin/Globulin Ratio Lipase Urine Color Urine Appearance Urine pH Ur Specific [place] Urine Protein Urine Glucose (UA) Urine Ketones Urine Blood Urine Nitrite Urine Bilirubin Urine Urobilinogen Ur Leukocyte Esterase Urine WBC (Auto) Urine RBC (Auto) U Hyaline Cast (Auto) U Epithel Cells (Auto) Urine Bacteria (Auto) 12/21/21 12/21/21 12/21/21 13:10 13:00 13:00 WBC RBC Hgb Hct MCV MCH MCHC RDW Std Deviation RDW Coeff of [place] Plt Count MPV Immature Gran % (Auto) Neut % (Auto) Lymph % (Auto) [place] % (Auto) Eos % (Auto) Baso % (Auto) Neut # (Auto) Lymph # (Auto) [place] # (Auto) Eos # (Auto) Baso # (Auto) Immature Gran # (Auto) PT 11.6 INR 1.1 APTT 30.5 PTT Ratio 1.1 VBG pH VBG pCO2 VBG pO2 VBG HCO3 VBG O2 Saturation VBG Base Excess Sodium Potassium Chloride Carbon Dioxide Anion Gap BUN Creatinine Est Cr Clr Drug Dosing Est GFR ( Amer) Est GFR (Non-Af Amer) BUN/Creatinine Ratio Glucose Lactate Calcium Magnesium 1.5 L Total Bilirubin AST ALT Alkaline Phosphatase Total Creatine Kinase 12 L Troponin I High Sens 48.2 H Total Protein Albumin Globulin Albumin/Globulin Ratio Lipase 61 Urine Color Yellow Urine Appearance Cloudy A Urine pH 5.0 Ur Specific [place] 1.020 Urine Protein 2+ H Urine Glucose (UA) Negative Urine Ketones Negative Urine Blood Trace H Urine Nitrite Negative Urine Bilirubin Negative Urine Urobilinogen Negative Ur Leukocyte Esterase Negative Urine WBC (Auto) 1-5 Urine RBC (Auto) >30 H U Hyaline Cast (Auto) 1-5 U Epithel Cells (Auto) 5-10 H Urine Bacteria (Auto) Negative 12/21/21 12/21/21 13:00 13:00 WBC 12.94 H RBC 2.88 L Hgb 8.3 L Hct 27.1 L MCV 94.1 MCH 28.8 MCHC 30.6 L RDW Std Deviation 50.0 H RDW Coeff of [place] 14.4 Plt Count 212 MPV 10.5 Immature Gran % (Auto) 0.6 Neut % (Auto) 86.7 Lymph % (Auto) 6.0 [place] % (Auto) 5.7 Eos % (Auto) 0.7 Baso % (Auto) 0.3 Neut # (Auto) 11.21 H Lymph # (Auto) 0.78 L [place] # (Auto) 0.74 Eos # (Auto) 0.09 Baso # (Auto) 0.04 Immature Gran # (Auto) 0.08 H PT INR APTT PTT Ratio VBG pH VBG pCO2 VBG pO2 VBG HCO3 VBG O2 Saturation VBG Base Excess Sodium 143 Potassium 4.4 Chloride 109 H Carbon Dioxide 27 Anion Gap 7 BUN 20 Creatinine 1.31 H Est Cr Clr Drug Dosing 35.0 Est GFR ( Amer) 45.4 Est GFR (Non-Af Amer) 39.2 BUN/Creatinine Ratio 15.3 Glucose 140 H Lactate Calcium 9.1 Magnesium Total Bilirubin 0.4 AST 8 L ALT 6 L Alkaline Phosphatase 65 Total Creatine Kinase Troponin I High Sens Total Protein 6.0 Albumin 3.3 L Globulin 2.7 Albumin/Globulin Ratio 1.2 Lipase Urine Color Urine Appearance Urine pH Ur Specific [place] Urine Protein Urine Glucose (UA) Urine Ketones Urine Blood Urine Nitrite Urine Bilirubin Urine Urobilinogen Ur Leukocyte Esterase Urine WBC (Auto) Urine RBC (Auto) U Hyaline Cast (Auto) U Epithel Cells (Auto) Urine Bacteria (Auto) Diagnostic Findings Chest X-Ray 12/21/21 13:15 XR chest 1V portable HISTORY: 76 years-old Female illness acute shortness of breath COMPARISON: CT abdomen and pelvis of same day TECHNIQUE: AP view of the chest FINDINGS: Cardiac silhouette is mildly enlarged. No pneumothorax or overt pulmonary edema. There is opacity of the lateral right lung base with blunting of the costophrenic angle. Trace pleural effusions. Degenerative changes of the shoulders and spine. IMPRESSION: 1. Cardiomegaly without pulmonary edema. 2. Trace pleural effusions with lateral right lung base opacities suggestive of atelectasis/scarring. ACT 112: Negative or not required by law. The above report was generated using voice recognition software. It may contain grammatical, syntax or spelling errors. Electronically signed by: Mani Ramos M.D. 12/21/2021 2:[address] 12/21/21 13:36 CT head/brain wo con CLINICAL HISTORY: 76 years-old Female with weakness. Acute weakness TECHNIQUE: Multiple axial CT images of the head were obtained without contrast. A dose lowering technique was utilized adhering to the principles of ALARA. COMPARISON: None. FINDINGS: No acute intracranial hemorrhage, midline shift, intracranial mass, hydroce phalus, territorial ischemia or abnormal extra-axial collection. Involutional changes. White matter hypodensities are suggestive of chronic microvascular ischemic disease. The calvarium is intact. Small left sphenoid sinus air-fluid level. The mastoid air cells are clear. Unremarkable soft tissues and orbits. IMPRESSION: No acute intracranial abnormality. ACT 112: Negative or not required by law. The above report was generated using voice recognition software. It may contain grammatical, syntax or spelling errors. Electronically signed by: Mani Ramos M.D. 12/21/2021 2:[address] 12/21/21 13:40 CT cervical spine wo con CT DOSE: 2049.56 mGy.cm CLINICAL HISTORY: 76 years-old Female with recurrent falls. Acute neck injury status post fall COMPARISON: None. TECHNIQUE: Multiple axial CT images of the cervical spine were obtained without contrast. A dose lowering technique was utilized adhering to the principles of ALARA. FINDINGS: Multilevel degenerative changes include severe intervertebral disc space narrowing at C5-C6 and moderate to severe disc space narrowing at C6-C7. 3 mm anterolisthesis C7 on T1 is likely secondary to chronic facet arthrosis. There is severe multilevel facet arthropathy. Minimal superior endplate compression of the T1 and T2 vertebral bodies is likely chronic. No acute cervic al spine fracture or subluxation identified. Multilevel neural foraminal narrowing. The cervical soft tissues appear unremarkable. The visualized lung apices appear clear. IMPRESSION: No acute cervical spine fracture or subluxation. ACT 112: Negative or not required by law. The above report was generated using voice recognition software. It may contain grammatical, syntax or spelling errors. Electronically signed by: Mani Ramos M.D. 12/21/2021 2:27 PM Abdomen/Pelvis CT 12/21/21 13:41 CT SCAN OF THE ABDOMEN AND PELVIS WITHOUT IV CONTRAST CLINICAL HISTORY: Falls. COMPARISON STUDY: No priors. TECHNIQUE: CT scan of the abdomen and pelvis is performed from the lung bases to the proximal femora. Images are reviewed in the axial, sagittal, and coronal planes. IV contrast was not administered for this examination as per the referring clinician. Note that the examination was performed in significantly suboptimal fashion without oral and IV contrast. A dose lowering technique was utilized adhering to the principles of ALARA. FINDINGS: Lung bases: The heart is normal in size and without pericardial effusion. There is some attenuation of the cardiac blood pool as compared to the myocardium suggesting anemia. There are small pleural effusions with dependent atelectasis. A small hiatal hernia is noted. Liver: The unenhanced liver is normal in size, contour, and attenuation. There is no intrahepatic biliary ductal dilatation. Gallbladder: Unremarkable. Spleen: Normal in size and attenuation. Pancreas: There is a 4.1 cm ovoid cystic lesion in the pancreatic body is seen on image #121. This contains internal calcification/debris. The pancreatic tail appears atrophic. The unenhanced pancreas proximal pancreas is moderately atrophic and otherwise grossly unremarkable. Adrenal glands: Unremarkable. Kidneys: The unenhanced kidneys are atrophic. There is an obstructing calculus/cluster of calculi within the left proximal ureter at the level of L4. This is best seen on axial image #212 and extends approximately 16 mm in length. This causes mild left hydronephrosis. No additional left renal calculi are identified. Numerous nonobstructing right renal calculi measuring up to 14 mm. There is no right ureteral stone or hydronephrosis. There is no evidence of contour deforming renal mass lesion. Abdominal vasculature: The abdominal aorta is normal in course and caliber noting advanced atherosclerotic calcification. Bowel: There is moderate colonic diverticulosis without CT evidence of acute di verticulitis. No bowel obstruction is seen. Submucosal fat deposition is seen throughout the right colon. This is a nonspecific finding but has been described in the setting of chronic inflammation. The appendix is not identified and reported surgically absent. Peritoneum: There is no intraperitoneal free air or abdominal ascites. Lymphadenopathy: A mildly enlarged left iliac chain node seen on image #224 measures 13 mm in short axis. No additional enlarged lymph nodes are seen in the abdomen or pelvis. Pelvic viscera: Evaluation of the pelvis is significantly degraded by streak artifact from a left hip arthroplasty. The bladder is normal as visualized. The uterus is surgically absent. No adnexal lesion is seen. Skeletal structures: The skeletal structures are osteopenic. No lytic or blastic lesions are seen. A left hip arthroplasty is in place. Advanced arthritic change is seen in the right hip. There is moderate lumbosacral spondylosis. There is an age indeterminant impacted fracture of the subcapital right femur. IMPRESSION: 1. There is an obstructing calculus/cluster of calculi in the left proximal ureter as above. This measures up to 16 mm in length and causes mild left hydronephrosis. 2. Additional nonobstructing calculi are seen in the right kidney. 3. There is no evidence of solid organ injury in the abdomen or pelvis on this unenhanced examination. 4. There is an age indeterminant impacted fracture of the subcapital right femur which may be chronic. Correlate with clinical findings. 5. Small pleural effusions. 6. There is a pathologically indeterminant 4.1 cm ovoid cystic lesion in the distal pancreatic body. This contains internal calcification/debris. Nonemergent follow-up with GI for possible endoscopic ultrasound is recommended. 7. Colonic diverticulosis without CT evidence of acute diverticulitis. 8. Additional findings as above. ACT 112: Negative or not required by law. Electronically signed by: Horacio Motta M.D. 12/21/2021 2:27 PM Pelvis X-Ray 12/21/21 13:41 XR pelvis 1-2V routine HISTORY: 76 years-old Female recurrent falls acute pelvic pain status post fall COMPARISON: CT abdomen and pelvis of same day TECHNIQUE: AP view of the pelvis FINDINGS: Left hip total joint arthroplasty with acetabular revision/ORIF changes. Cerclage wires with a metallic cage involves the proximal left femoral diaphysis. Demineralized appearance of the bones. The distal portion of the left femoral stem is centrally positioned within the medullary space. There is associated lateral cortical thickening suggestive of chronic remodeling. No definite evidence of acute hardware loosening or periprosthetic fracture. There is moderate osteoarthritis of the right hip. No acute fracture or dislocation identified. IMPRESSION: 1. Moderate right hip osteoarthritis without acute fracture or dislocation identified. 2. Left hip total joint arthroplasty with chronic revision changes as above. ACT 112: Negative or not required by law. The above report was generated using voice recognition software. It may contain grammatical, syntax or spelling errors. Electronically signed by: Mani Ramos M.D. 12/21/2021 2:17 PM Supervising Physician Co-Signing Physician Notes Patient was seen and examined with Talita ARELLANO at bedside. Chart reviewed. Case discussed with her and agree with the documentation above except for what is noted below. In summary, this is a 76 year old female with recent admission to OSH for fall, NANCY and rhabdomyolysis presents to ED with N/V, poor oral intake and diarrhea along with abdominal pain. Found to have accelerated hypertension with BP in 210s. States compliant to her home meds (Of note her antihypertensive meds were recently adjusted during recent hospitalization). BP however improved to 198/80 at the end of our encounter. Labs reviewed, CT reviewed. OSH labs and CT reviewed- has obstructing 16 mm left ureteral calculiwith some hydronephrosis along with non obstructing right renal calculi- OSH CT shows only 3 mm right non obstructing calculi. Also shows age indeterminant impacted fracture of the subcapital right femur which may be chronic but not mentioned in the OP CT scans from 12/01 and 12/04. Does have pancreatic cyst for which nonemergent GI evaluation for EUS was recommended. Planned to start nicardipine drip for BP titration but patient states allergic to amlodipine. Since BP improved and patient asymptomatic, will give additional dose of losartan 50 and increase to 100 from tomorrow. Increase coreg to 25 bid. continue HLZ and clonidine. Labetalol prn with hold parameters. Goal BP for the next 24hrs is SBP 160-180. Consult uro for stone management and ortho for evaluation of the hip fracture. pain management. Consider GI evaluation for EUS once her medical condition stabilized. rest as per the note above.
--- NOTE | 2021-12-21 16:16 | Electrocardiogram Report ---
Test Reason : Blood Pressure : / mmHG Vent. Rate : 066 BPM Atrial Rate : 076 BPM P-R Int : 000 ms QRS Dur : 088 ms QT Int : 414 ms P-R-T Axes : 000 055 090 degrees QTc Int : 434 ms sinus rhythm Nonspecific ST and T wave abnormality Abnormal ECG No previous ECGs available Confirmed by Rajeev Seaman ([id number]) on 12/21/2021 4:16:19 PM Referred By: Confirmed By:Ap Seaman
[2021-12-21] MEDS ORDERED: STAT IV Infusion **Titration per Protocol STA (16:26)
[2021-12-21] MEDS ORDERED: niCARdipine 25 MG in SODIUM CHLORIDE 0.9% 240 ML IV SCH (16:30)
[2021-12-21] MEDS ORDERED: HYDROmorphone INJ 0.5 MG/0.5 ML SYR IV STA (16:31)
[2021-12-21] MEDS ORDERED: LOSARTAN POTASSIUM 50 MG TAB PO STA ×2 (16:35→16:36)
[2021-12-21] MEDS ORDERED: ACETAMINOPHEN W/CODEINE #3 1 TAB PO PRN (18:28)
[2021-12-21] MEDS ORDERED: SODIUM CHLORIDE 0.9% 1000ML 1,000 ML IV SCH (18:28)
[2021-12-21] MEDS ORDERED: ALPRAZolam 0.5 MG TABLET PO PRN ×2 (18:28→18:52)
[2021-12-21] MEDS ORDERED: HYDROmorphone INJ 0.5 MG/0.5 ML SYR IV PRN (18:28)
[2021-12-21] MEDS ORDERED: ALBUTEROL 0.083% NEBU SOLN 3 ML VIAL INH PRN (18:28)
[2021-12-21] MEDS ORDERED: INFLUENZA VACCINE HIGH DOSE PF 65+ 0.7 ML SYR IM ONE (18:39)
[2021-12-21] MEDS ORDERED: PNEUMOCOCCAL POLYSACCHARIDES 25 MCG/0.5 ML VIAL/SYR IM ONE (18:39)
--- NOTE | 2021-12-21 19:26 | Urology Consultation ---
Date of Consultation December 21, 2021 Assessment & Plan (1) Hydronephrosis concurrent with and due to calculi of kidney and ureter: The patient has been admitted on the hospitalist service. Due to her frequent falls and noted chronic right hip fracture PT and OT consultation have been requested along with an orthopedic consultation. Patient is also being managed for hypertensive urgency as well as an elevated troponin along with hypomagnesemia. Concerning her kidney stones we recommend proceeding as follows: At the present time the patient does not appear septic. She is not hypotensive or tachycardic and is afebrile. She only has a slight elevation of her white blood cell count and a slight elevation of her creatinine. Therefore not feel an emergent urologic procedure is required Provide analgesics Provide antiemetics Urinalysis is not indicative of infection, therefore antibiotics do not need to be administered at this time Flomax has been initiated for expulsive therapy IV fluid for hydration is being provided Recommend making the patient n.p.o. after midnight and patient be reassessed in the morning to determine if cystoscopic intervention will be required History of Present Illness Reason for Consultation: Nephrolithiasis Attending Physician: Margarito Brody MD History of Present Illness This is a 76-year-old female who presented to the emergency department secondary to generalized weakness and pain along with repeated falls at home. The patient notes that she recently had a hospitalization at [facility] in [facility] secondary to acute kidney injury as well as rhabdomyolysis secondary to falls. This hospitalization was from December 01 through . Patient presented to the emergency department today as noted above secondary to repeated falls and generalized weakness. Patient denies any fevers, shakes, or chills. She says that she has nausea without vomiting. She says that she does have pain in her back on both sides. She says the pain sometimes rotates to the front of her abdomen. She denies any dysuria or hematuria she also denies urinary frequency. To the best of her knowledge she has never had issues with kidney stones in the past. Since arrival to the hospital the patient has had labs and imaging which I independently reviewed. A chest x-ray showed trace pleural effusions but no evidence of pneumonia. A CT scan of patient's head showed no acute intracranial abnormalities. A CT scan of the cervical spine showed no evidence of acute cervical spine fractures or subluxations. A pelvis x-ray showed no evidence of acute fractures or dislocations of the right hip. A left hip arthroplasty was noted. Finally, the patient had a CT scan of the abdomen and pelvis that showed an obstructing kidney stone cluster in the left proximal ureter. The measurement of this was approximately 16 mm resulting in mild left hydronep hrosis. There were additional nonobstructing calculi noted in the right kidney. There is an apparent age-indeterminate impacted fracture of the right femur that was felt to be a subcapital fracture. Labs included a CBC were white blood cell count was 12.9. Hemoglobin and hematocrit were 8.3 and 27.1. Platelet count was noted to be normal. Coagulation studies were normal. Chemistry profile showed sodium and potassium were normal. BUN was normal at 20 and her creatinine had a slight elevation at 1.3. Lactic acid level was normal. Urinalysis showed cloudy urine which was negative for nitrites as well as leukocyte esterase. There were 1-5 white blood cells per high-power field. The specimen was negative for bacteria. A COVID test was negative. At the time of my interview patient was resting comfortably in bed in no distress. Allergies Allergy/AdvReac Type Severity Reaction Status Date / Time amlodipine Allergy Unknown PT'S LIST Verified 12/21/21 16:08 cefuroxime Allergy Unknown PT'S LIST Verified 12/21/21 16:08 Cephalosporins Allergy Unknown PT'S LIST Verified 12/21/21 16:08 ciprofloxacin Allergy Unknown PT'S LIST Verified 12/21/21 16:08 erythromycin base Allergy Unknown PT'S LIST Verified 12/21/21 16:08 Home Medications Medication Instructions Recorded Confirmed Type acetaminophen 300 mg-codeine 30 mg 1 tab PO Q6H PRN Moderate Pain 12/21/21 12/21/21 History tablet (Scale Score 5-6) albuterol sulfate 2.5 mg/3 mL 2.5 mg inhalation Q4H PRN 12/21/21 12/21/21 History (0.083 %) solution for nebulization Shortness Of Breath albuterol sulfate 90 mcg/actuation 2 puff inhalation DIRECTED PRN 12/21/21 12/21/21 History aerosol inhaler Shortness Of Breath alprazolam 0.5 mg tablet (Xanax) 0.5 mg PO BID PRN Sleep 12/21/21 12/21/21 History aspirin 81 mg tablet 81 mg PO DAILY 12/21/21 12/21/21 History carvedilol 12.5 mg tablet (Coreg) 12.5 mg PO BID 12/21/21 12/21/21 History clonidine HCl 0.2 mg tablet 0.2 mg PO BID 12/21/21 12/21/21 History ergocalciferol (vitamin D2) 1,250 1,250 mcg PO WK 12/21/21 12/21/21 History mcg (50,000 unit) capsule (Vitamin D2) hydralazine 100 mg tablet 100 mg PO TID 12/21/21 12/21/21 History loratadine 10 mg tablet (Claritin) 10 mg PO DAILY 12/21/21 12/21/21 History losartan 50 mg tablet 50 mg PO DAILY 12/21/21 12/21/21 History mirtazapine 30 mg tablet (Remeron) 30 mg PO HS 12/21/21 12/21/21 History pantoprazole 40 mg tablet,delayed 40 mg PO HS 12/21/21 12/21/21 History release (Protonix) umeclidinium 62.5 mcg-vilanterol 1 inh inhalation DAILY 12/21/21 12/21/21 History 25 mcg/actuation powdr for inhalation (Anoro Ellipta) Patient History Medical History COPD (chronic obstructive pulmonary disease) Fracture of right hip HLD (hyperlipidemia) HTN (hypertension) No pertinent family history Rhabdomyolysis Surgical History History of hip surgery History of removal of ovarian cyst Hx of appendectomy Hx of hernia repair Hx of hysterectomy Family History Mother Coronary heart disease Father Coronary heart disease Brother Diabetes Brother Coronary heart disease Other Heart disease Hypertension Social History Smoking Status: Former smoker Second Hand Exposure: No; Do You Dip or Chew Tobacco: No; Tobacco Cessation Education Requested by Patient: No Hx Alcohol Use: No Hx Substance Use: No Preferred Language: Nepali Communication Ability: Effective Informatics Consultant Required: No Beliefs That Will Affect Care: None Current Living Situation: Family Feels Safe at Home: Yes Safety Concerns: Feels Safe At This Time Assistive Devices: Oxygen - Continuous, Walker and Wheelchair Review of Systems Constitutional: + body aches and + weakness; no fever and no chills Eyes: no eye pain Ear, Nose, Mouth, Throat: no ear pain Respiratory: no cough and no dyspnea Cardiovascular: no chest pain Gastrointestinal: + abdominal pain (Radiating from her back) and + nausea; no vomiting Genitourinary: no dysuria and no hematuria Musculoskeletal: + back pain (Bilateral flank pain) Integumentary: no rash Neurologic: + generalized weakness; no localized weakness Physical Exam Constitutional: no acute distress Eyes: no conjunctival abnormality ENMT: Ears: no hearing impairment and no external ear abnormality Mouth: no oropharynx abnormality Neck: trachea midline Respiratory: normal respiratory effort; no respiratory distress and no labored breathing Cardiovascular: Rate/Rhythm: regular rate and regular rhythm Gastrointestinal (Abdomen): Soft, nonrigid, and nontender to palpation. No abdominal distention noted. Musculoskeletal: No calf tenderness Skin: no rashes Neurologic: moves all extremities Psychiatric: Orientation: alert and oriented x 3 Affect: + flat affect Genitourinary: + CVA tenderness (Minimal bilateral CVA tenderness noted with percussion) Results & Data ([facility]) Vital Signs (Past 12 Hours) Vital Signs Temp Pulse Pulse Resp BP BP Pulse Ox 12/21/21 18:44 37.3 C 72 20 237/86 H 95 12/21/21 18:42 72 12/21/21 18:31 12/21/21 18:06 66 20 212/104 H 95 12/21/21 17:00 68 18 222/114 H 94 12/21/21 15:59 66 21 217/76 H 99 12/21/21 12:56 37.1 C 65 17 219/85 H 99 12/21/21 12:56 37.1 C 65 17 219/85 H 99 O2 Del Method O2 Flow Rate 12/21/21 18:44 Room Air 12/21/21 18:42 12/21/21 18:31 Nasal Cannula 3 12/21/21 18:06 Nasal Cannula 3 12/21/21 17:00 Nasal Cannula 3 12/21/21 15:59 Nasal Cannula 3 12/21/21 12:56 Nasal Cannula 3 12/21/21 12:56 Nasal Cannula 3 PG Care Time/CCT Total # of Minutes Spent Total Time Spent with Patient: Total time spent is greater than 50% in coordination of care (as documented) at patient's floor/unit and/or counseling patient: Coding Level of Care Code 79251 Inpt Consult Level 5 Diagnoses Hydronephrosis concurrent with and due to calculi of kidney and ureter N13.2
[2021-12-21] MEDS: PANTOprazole 40 MG TAB PO SCH (20:08)
[2021-12-21] MEDS: hydrALAZINE TAB 50 MG TAB PO SCH (20:09)
[2021-12-21] MEDS: TAMSULOSIN HCL 0.4 MG CAP PO SCH (20:11)
[2021-12-21] MEDS: carvediloL 25 MG TAB PO SCH (20:11)
[2021-12-21 20:26] LABS: Hematocrit (blood only) 26.5 % (34.1-44.9); Hemoglobin 8.2 g/dl (12.0-16.0)
[2021-12-21] MEDS ORDERED: MIRTAZAPINE TAB 15 MG TAB PO SCH (21:00)
--- NOTE | 2021-12-21 21:10 | Orthopedic Consultation ---
Date of Consultation December 21, 2021 Assessment & Plan (1) Degenerative joint disease of right hip: Plan no treatment at this time. no obvious fx. Reocommed PT, follow up 2 at [facility] office. History of Present Illness Attending Physician: Margarito Brody MD History of Present Illness pleasant female who was admitted for stomach pain. CT scan performed and found to have incidental finding of a questionable hip fx. pt states shes had sore hips on both sides forever. She reports no groin pain. has had mutliple operatiion on left hip. Allergies Allergy/AdvReac Type Severity Reaction Status Date / Time amlodipine Allergy Unknown PT'S LIST Verified 12/21/21 16:08 cefuroxime Allergy Unknown PT'S LIST Verified 12/21/21 16:08 Cephalosporins Allergy Unknown PT'S LIST Verified 12/21/21 16:08 ciprofloxacin Allergy Unknown PT'S LIST Verified 12/21/21 16:08 erythromycin base Allergy Unknown PT'S LIST Verified 12/21/21 16:08 Home Medications Medication Instructions Recorded Confirmed Type acetaminophen 300 mg-codeine 30 mg 1 tab PO Q6H PRN Moderate Pain 12/21/21 12/21/21 History tablet (Scale Score 5-6) albuterol sulfate 2.5 mg/3 mL 2.5 mg inhalation Q4H PRN 12/21/21 12/21/21 History (0.083 %) solution for nebulization Shortness Of Breath albuterol sulfate 90 mcg/actuation 2 puff inhalation DIRECTED PRN 12/21/21 12/21/21 History aerosol inhaler Shortness Of Breath alprazolam 0.5 mg tablet (Xanax) 0.5 mg PO BID PRN Sleep 12/21/21 12/21/21 History aspirin 81 mg tablet 81 mg PO DAILY 12/21/21 12/21/21 History carvedilol 12.5 mg tablet (Coreg) 12.5 mg PO BID 12/21/21 12/21/21 History clonidine HCl 0.2 mg tablet 0.2 mg PO BID 12/21/21 12/21/21 History ergocalciferol (vitamin D2) 1,250 1,250 mcg PO WK 12/21/21 12/21/21 History mcg (50,000 unit) capsule (Vitamin D2) hydralazine 100 mg tablet 100 mg PO TID 12/21/21 12/21/21 History loratadine 10 mg tablet (Claritin) 10 mg PO DAILY 12/21/21 12/21/21 History losartan 50 mg tablet 50 mg PO DAILY 12/21/21 12/21/21 History mirtazapine 30 mg tablet (Remeron) 30 mg PO HS 12/21/21 12/21/21 History pantoprazole 40 mg tablet,delayed 40 mg PO HS 12/21/21 12/21/21 History release (Protonix) umeclidinium 62.5 mcg-vilanterol 1 inh inhalation DAILY 12/21/21 12/21/21 History 25 mcg/actuation powdr for inhalation (Anoro Ellipta) Patient History Medical History (Updated 12/21/21 @ 21:09 by Rajeev Sy DO) COPD (chronic obstructive pulmonary disease) Degenerative joint disease of right hip Fracture of right hip HLD (hyperlipidemia) HTN (hypertension) No pertinent family history Rhabdomyolysis Surgical History History of hip surgery History of removal of ovarian cyst Hx of appendectomy Hx of hernia repair Hx of hysterectomy Family History Mother Coronary heart disease Father Coronary heart disease Brother Diabetes Brother Coronary heart disease Other Heart disease Hypertension Social History Smoking Status: Former smoker Second Hand Exposure: No; Do You Dip or Chew Tobacco: No; Tobacco Cessation Education Requested by Patient: No Hx Alcohol Use: No Hx Substance Use: No Preferred Language: Malaysian Communication Ability: Effective Chemical Dependency Therapist Required: No Beliefs That Will Affect Care: None Current Living Situation: Family Feels Safe at Home: Yes Safety Concerns: Feels Safe At This Time Assistive Devices: Oxygen - Continuous, Walker and Wheelchair Physical Exam Musculoskeletal: pt has full painless rom right hip Results & Data ([facility]) Vital Signs (Past 12 Hours) Vital Signs Temp Pulse Pulse Resp BP BP Pulse Ox 12/21/21 18:44 37.3 C 72 20 237/86 H 95 12/21/21 18:42 72 12/21/21 18:31 12/21/21 18:06 66 20 212/104 H 95 12/21/21 17:00 68 18 222/114 H 94 12/21/21 15:59 66 21 217/76 H 99 12/21/21 12:56 37.1 C 65 17 219/85 H 99 12/21/21 12:56 37.1 C 65 17 219/85 H 99 O2 Del Method O2 Flow Rate 12/21/21 18:44 Room Air 12/21/21 18:42 12/21/21 18:31 Nasal Cannula 3 12/21/21 18:06 Nasal Cannula 3 12/21/21 17:00 Nasal Cannula 3 12/21/21 15:59 Nasal Cannula 3 12/21/21 12:56 Nasal Cannula 3 12/21/21 12:56 Nasal Cannula 3 Diagnostic Findings i dont see any obvious fx of right hip. severe OA of hip noted.
[2021-12-21] MEDS: cloNIDine HCL 0.2 MG TAB PO SCH (22:59)
[2021-12-21] MEDS: cloNIDine HCL 0.1 MG TAB PO SCH (23:04)
[2021-12-22 08:08] LABS: Hemoglobin 8.2 g/dl (12.0-16.0); Mean Corpuscular Hemoglobin 29.3 pg (25.0-34.0); Mean Corpuscular Hgb Conc 30.4 g/dL (32.0-36.0); Mean Corpuscular Volume 96.4 fL (80.0-100.0); Mean Platelet Volume 9.8 fL (9.4-12.3); Platelet Count 200 K/uL (130-400); RDW Coefficient of Variation 14.4 % (11.5-14.5); RDW Standard Deviation 51.1 fL (36.4-46.3); White Blood Count 13.21 K/ul (4.8-10.8)
[2021-12-22] MEDS: TAMSULOSIN HCL 0.4 MG CAP PO SCH (08:33)
[2021-12-22] MEDS: carvediloL 25 MG TAB PO SCH ×2 (08:33→20:12)
[2021-12-22] MEDS: LOSARTAN POTASSIUM 50 MG TAB PO SCH (08:34)
[2021-12-22] MEDS: UMECLIDINIUM/VILANTEROL 62.5/25MCG 7 PUFFS/INHALER INH SCH (08:34)
[2021-12-22] MEDS: LORATADINE 10 MG TAB PO SCH (08:34)
[2021-12-22] MEDS: ASPIRIN 81 MG ECTAB PO SCH (08:34)
[2021-12-22] MEDS: hydrALAZINE TAB 50 MG TAB PO SCH ×3 (08:34→20:13)
[2021-12-22] MEDS: cloNIDine HCL 0.2 MG TAB PO SCH ×2 (08:35→23:36)
--- NOTE | 2021-12-22 08:48 | Electrocardiogram Report ---
Test Reason : Blood Pressure : / mmHG Vent. Rate : 072 BPM Atrial Rate : 072 BPM P-R Int : 154 ms QRS Dur : 088 ms QT Int : 396 ms P-R-T Axes : 102 076 107 degrees QTc Int : 433 ms Normal sinus rhythm Confirmed by Rajeev Seaman ([id number]) on 12/22/2021 8:47:44 AM Referred By: REFERRED SELF Confirmed By:Ap Seaman
[2021-12-22 08:53] LABS: BUN Creatinine Ratio 16.3 (10-20); Calcium 9.2 mg/dl (8.5-10.1); Creatinine Clr Calc Pharmacy 37.3 ml/min; Est GFR (Non-African American) 42.3 ml/min
[2021-12-22] MEDS: ONDANSETRON INJ 2 MG/ML 2 ML VIAL IV PRN ×2 (08:54→13:57)
[2021-12-22 08:55] LABS: Potassium 4.4 mmol/L (3.5-5.1)
[2021-12-22] MEDS: DULoxetine HCL 30 MG CAP PO SCH (10:18)
[2021-12-22] MEDS ORDERED: SODIUM CHLORIDE 0.9% 1000ML 1,000 ML IV SCH (10:30)
--- NOTE | 2021-12-22 11:22 | Urology Progress Note ---
Date of Service December 22, 2021 Assessment & Plan (1) Hydronephrosis concurrent with and due to calculi of kidney and ureter: (2) Kidney stone: Plan 76yo F who presented with weakness/falls and admitted with possible right hip fx, elevated troponin, and hypertensive urgency. A CT a/p on arrival was also notable for an obstructing calculus/cluster of calculi in the left proximal ureter, measuring up to 16 mm in length and causing mild left hydronephrosis. Additional nonobstructing calculi were seen in the right kidney. - Afebrile but hypertensive. - Labs reviewed - WBC 13.21, Creatinine 1.23. - Urinalysis not suggestive of infection. No culture pending. - Voiding spontaneously, continue to monitor. Bladder scan prn. - No plan for urological intervention today. - Since she is not having pain on the left side and is dealing with other acute issues, we will hold on any intervention at this time. - Please consult our service urgently if patient develops fever, intractable pain or other acute changes as this may necessitate urgent surgical intervention. - Continue supportive care. - Urology will continue to follow closely. Admission and Anticipated Discharge Date Admission Date: December 21, 2021 Supervising Physician Co-Signing Physician Notes Discussed patient with HIEU. Agree with plan. Patient is stable from a kidney stone standpoint and I would not recommend urgent intervention given her other medical issues. Can monitor conservatively and stent if necessary but would prefer to avoid a procedure at this time and manage as an outpatient. Subjective Patient examined at bedside this AM. Asleep on arrival, awakened to name. Answered questions appropriately, but would fall asleep between each question. Reports still feeling tired and weak. Notes right lower quadrant pain. Denies any pain on the left side. No fevers or chills. Denies nausea or vomiting. Has been NPO. Reports she is voiding without issue. Denies hematuria or dysuria. Review of Systems Constitutional: as per Subjective / HPI Gastrointestinal: as per Subjective / HPI Genitourinary: as per Subjective / HPI Physical Exam Constitutional: no acute distress Appears fatigued; Forgetful Respiratory: O2 via NC Gastrointestinal (Abdomen): Percussion/Palpation: + abdomen tender (mild RLQ tenderness with palpation) and abdomen soft; no guarding and abdomen not rigid Psychiatric: Orientation: alert, oriented to person and oriented to place Genitourinary: no CVA tenderness Results & Data ([facility]) Vital Signs (Past 12 Hours) Vital Signs Temp Pulse Pulse Resp BP BP Pulse Ox 12/22/21 07:51 37.5 C 68 20 194/64 H 96 12/22/21 02:30 37.1 C 58 L 20 146/55 H 97 12/22/21 00:56 63 12/22/21 00:56 12/22/21 00:42 12/22/21 00:06 57 L 127/55 L 12/21/21 22:51 37.0 C 67 20 175/65 H 97 Pulse Ox O2 Del Method O2 Del Method O2 Flow Rate O2 Flow Rate 12/22/21 07:51 Nasal Cannula 3 12/22/21 02:30 Nasal Cannula 3 12/22/21 00:56 12/22/21 00:56 Nasal Cannula 3 12/22/21 00:42 95 Nasal Cannula 3 12/22/21 00:06 12/21/21 22:51 Nasal Cannula 3 PG Care Time/CCT Total # of Minutes Spent Total Time Spent with Patient: Total time spent is greater than 50% in coordination of care (as documented) at patient's floor/unit and/or counseling patient: Coding Level of Care Code 44338 Subseq Hosp Care Lvl 2 Diagnoses Hydronephrosis concurrent with and due to calculi of kidney and ureter N13.2 Kidney stone N20.0
[2021-12-22] MEDS: LABETALOL HCL IV 5 MG/ML 20ML IV PRN (11:53)
[2021-12-22] MEDS ORDERED: MICONAZOLE NITRATE POWDER 43 GM EXT PRN (13:04)
--- NOTE | 2021-12-22 13:48 | Hospitalist Progress Note ---
Date of Service December 22, 2021 Assessment & Plan (1) Kidney stone: Plan: CT A/P: The unenhanced kidneys are atrophic. There is an obstructing calculus/cluster of calculi within the left proximal ureter at the level of L4. This is best seen on axial image #212 and extends approximately 16 mm in length. This causes mild left hydronephrosis. No additional left renal calculi are identified. Numerous nonobstructing right renal calculi measuring up to 14 mm. There is no right ureteral stone or hydronephrosis. There is no evidence of contour deforming renal mass lesion. Last CT from 12/01/21 shows only a 3 mm right nonobstructing nephrolith in Epic Continue Flomax Strain all urine Current abd pain on RLQ, not related to side with obstructive stone on CT. Urologist román and gabriel noted No procedure planned for today UA not suggestive of infection Afebrile, WBC is 13 Pain regimen modified considering drowsiness Tylenol 3 discontinued Scheduled tylenol for now Tramadol prn for mild and moderate pain Dilaudid freq changed to q6h prn severe pain RN to give a dose of ketorolac prn Monitor renal function EPIC link is not working to assess baseline renal function Will give some gentle IVF for now until more awake and eating Monitor for fluid overload (2) Weakness: (3) Frequent falls: (4) Fracture of right hip: Plan: CT abd noted age indeterminate impacted right femoral fracture Pelvic XR did not show any acute fracture PT/OT eval Pt uses a walker and wheelchair at home Fall precautions PDMP reviewed. Patient has been on tylenol 3 and alprazolam for sometime This may be contributing to falls too Holding alprazolam for now in view of patient's drowsiness May resume at a lower dose if needed prn (5) Elevated troponin: (6) Hypertensive urgency: (7) HTN (hypertension): Plan: BP 220/80-90 on admission Pt is compliant with medications at home per report, daughter is RN and manages her medications. Takes clonidine 0.2 mg BID, losartan 50 mg daily, carvedilol 12.5 mg BID, hydralazine 100 mg TID Losartan was increased to 100mg daily and carvedilol to 25mg bid on admission Control pain as this may be contributing Troponin elevated at 48.2, trended down. May be related to elevated trop Denies chest pain (8) Hypomagnesemia: Plan: Mag was 1.5 on admission Repleted. 2 today (9) HLD (hyperlipidemia): Plan: Not on statin therapy Check lipids with am labs (10) COPD (chronic obstructive pulmonary disease): Plan: Hx of smoking use, quit 1.5 yrs ago. Continue on albuterol prn and Anoro Ellipta Trace pleural effusions, avoid excess IVFs. (11) Anemia: Plan: Hgb 8.2 today Per H/P baseline of 9-10 DVT ppx: SCD for now in case of OR CODE: DNR/DNI Admission and Anticipated Discharge Date Admission Date: December 21, 2021 Subjective Patient seen and examined this AM Patient was drowsy but arousable. Had gotten dilaudid shortly before. Reports right sided lower abd pain which she said sometimes radiates to the left Reports nausea Denied chest pain Other ROS limited as patient kept falling asleep Physical Exam Constitutional: + well hydrated and + obese; no acute distress Eyes: PERRL, conjunctivae normal, anicteric sclerae ENMT: external ear and nose normal, oropharynx normal Respiratory: normal respiratory effort, lungs clear to auscultation Cardiovascular: Rate/Rhythm: regular rate and regular rhythm S1 S2 Gastrointestinal (Abdomen): Soft, nondistended, +RLQ tenderness, normal bowel sounds Musculoskeletal: No pedal edema Neurologic: PERRL, EOMI, accommodation nl, no face palsy, no dysarthria Drowsy but arousable Results & Data Results & Data ([facility]) Vital Signs (Past 12 Hours) Vital Signs Temp Pulse Resp BP BP Pulse Ox Pulse Ox 12/22/21 13:30 97 12/22/21 13:03 12/22/21 13:24 66 185/63 H 97 12/22/21 11:31 36.8 C 68 20 200/75 H 212/73 H 95 12/22/21 07:51 37.5 C 68 20 194/64 H 96 12/22/21 02:30 37.1 C 58 L 20 146/55 H 97 O2 Del Method O2 Flow Rate O2 Flow Rate 12/22/21 13:30 3 12/22/21 13:03 Nasal Cannula 3 12/22/21 13:24 12/22/21 11:31 Nasal Cannula 3 12/22/21 07:51 Nasal Cannula 3 12/22/21 02:30 Nasal Cannula 3 Laboratory Results Abnormal lab results 12/21/21 12/21/21 12/22/21 Range/Units 19:44 19:44 00:39 WBC (4.8-10.8) K/ul RBC (3.93-5.22) M/uL Hgb 8.2 L (12.0-16.0) g/dl Hct 26.5 L (34.1-44.9) % MCHC (32.0-36.0) g/dL RDW Std Deviation (36.4-46.3) fL Chloride (98-107) mmol/L Creatinine (0.6-1.2) mg/dl Glucose (70-99(Fasting)) mg/dl Troponin I High Sens 46.1 H 43.2 H (0-14) pg/ml 12/22/21 12/22/21 Range/Units 07:13 07:54 WBC 13.21 H (4.8-10.8) K/ul RBC 2.80 L (3.93-5.22) M/uL Hgb 8.2 L (12.0-16.0) g/dl Hct 27.0 L (34.1-44.9) % MCHC 30.4 L (32.0-36.0) g/dL RDW Std Deviation 51.1 H (36.4-46.3) fL Chloride 108 H (98-107) mmol/L Creatinine 1.23 H (0.6-1.2) mg/dl Glucose 140 H (70-99(Fasting)) mg/dl Troponin I High Sens (0-14) pg/ml
[2021-12-22] MEDS: KETOROLAC TROMETHAMINE 15 MG/ML VIAL IV PRN (13:57)
[2021-12-22] MEDS: ACETAMINOPHEN 325 MG TAB PO SCH ×2 (14:41→20:11)
[2021-12-22] MEDS ORDERED: traMADol HCL 50 MG TABLET PO PRN (17:14)
[2021-12-22] MEDS ORDERED: HYDROmorphone INJ 0.5 MG/0.5 ML SYR IV PRN (17:15)
[2021-12-22] MEDS: PANTOprazole 40 MG TAB PO SCH (20:14)
[2021-12-22] MEDS: cloNIDine HCL 0.1 MG TAB PO SCH (23:50)
[2021-12-23] MEDS: cloNIDine HCL 0.1 MG TAB PO SCH ×5 (01:07→22:08)
[2021-12-23 01:32] LABS: Adenovirus F 40/41 PCR Not Detected (NotDetected); Astrovirus PCR Not Detected (NotDetected); Campylobacter PCR Not Detected (NotDetected); Cryptosporidium PCR Not Detected (NotDetected); Cyclospora cayetanensis PCR Not Detected (NotDetected); Entamoeba histolytica PCR Not Detected (NotDetected); Enteroaggregative E.coli(EAEC) Not Detected (NotDetected); Enteropathogenic E.coli (EPEC) Not Detected (NotDetected); Enterotoxigenic E.coli (ETEC) Not Detected (NotDetected); Giardia lamblia PCR Not Detected (NotDetected); Norovirus GI/GII PCR Not Detected (NotDetected); Plesiomonas shigelloides PCR Not Detected (NotDetected); Rotavirus A PCR Not Detected (NotDetected); Salmonella PCR Not Detected (NotDetected); Sapovirus PCR Not Detected (NotDetected); Shiga-like Toxin E.coli (STEC) Not Detected (NotDetected); Shigella/Enteroinvasive E.coli Not Detected (NotDetected); Vibrio cholerae PCR Not Detected (NotDetected); Vibrio species PCR Not Detected (NotDetected); Yersinia enterocolitica PCR Not Detected (NotDetected)
[2021-12-23 03:00] LABS: Cdiff Antigen Negative; Cdiff Toxin A+B Negative Cdiff Toxin (Negative)
[2021-12-23] MEDS: ACETAMINOPHEN 325 MG TAB PO SCH ×4 (03:19→17:42)
[2021-12-23 07:19] LABS: Hematocrit (blood only) 24.9 % (34.1-44.9); Hemoglobin 7.6 g/dl (12.0-16.0); Mean Corpuscular Hgb Conc 30.5 g/dL (32.0-36.0); Mean Platelet Volume 9.7 fL (9.4-12.3); Platelet Count 201 K/uL (130-400); RDW Coefficient of Variation 14.4 % (11.5-14.5); RDW Standard Deviation 49.7 fL (36.4-46.3); Red Blood Count 2.62 M/uL (3.93-5.22); White Blood Count 10.34 K/ul (4.8-10.8)
[2021-12-23 07:51] LABS: BUN Creatinine Ratio 18.8 (10-20); Calcium 8.9 mg/dl (8.5-10.1); Chol HDL Ratio 2.6 (0-5); Creatinine Clr Calc Pharmacy 30.3 ml/min; Est GFR (African American) 38.9 ml/min; Est GFR (Non-African American) 33.5 ml/min; Magnesium 1.8 mg/dl (1.7-2.4); Phosphorus 2.5 mg/dl (2.5-4.9); Potassium 4.4 mmol/L (3.5-5.1)
[2021-12-23] MEDS: LORATADINE 10 MG TAB PO SCH (07:53)
[2021-12-23] MEDS: DULoxetine HCL 30 MG CAP PO SCH (07:53)
[2021-12-23] MEDS: carvediloL 25 MG TAB PO SCH ×2 (07:53→22:09)
[2021-12-23] MEDS: TAMSULOSIN HCL 0.4 MG CAP PO SCH (07:53)
[2021-12-23] MEDS: UMECLIDINIUM/VILANTEROL 62.5/25MCG 7 PUFFS/INHALER INH SCH (07:54)
[2021-12-23] MEDS: hydrALAZINE TAB 50 MG TAB PO SCH ×3 (07:54→22:07)
[2021-12-23] MEDS: LOSARTAN POTASSIUM 50 MG TAB PO SCH (07:54)
[2021-12-23] MEDS: ASPIRIN 81 MG ECTAB PO SCH (07:55)
[2021-12-23 08:08] LABS: Estimated Average Glucose 108 mg/dl; Hemoglobin A1C 5.4 % (4.5-5.6)
--- NOTE | 2021-12-23 08:45 | Urology Progress Note ---
Date of Service December 23, 2021 Assessment & Plan (1) Hydronephrosis concurrent with and due to calculi of kidney and ureter: (2) Kidney stone: Plan 76yo F who presented with weakness/falls and admitted with possible right hip fx, elevated troponin, and hypertensive urgency. A CT a/p on arrival was also notable for an obstructing calculus/cluster of calculi in the left proximal ureter, measuring up to 16 mm in length and causing mild left hydronephrosis. Additional nonobstructing calculi were seen in the right kidney. - Plan of care reviewed with Dr. Jimenez. - Pt afebrile, hypertensive. - Labs reviewed - WBC 10.34, Creatinine up to 1.49 (previously 1.23), Hemoglobin 7.6 (8.2 yesterday). - Urinalysis not suggestive of infection. No culture pending. - Has been incontinent of urine per nursing, continue to monitor. Bladder scan prn. Plan - - No plan for urological intervention today. - We will tentatively plan for cystoscopy and bilateral stent placement tomorrow as long as patient is medically optimized for surgery and anesthesia given her other acute issues. - Will make NPO at midnight. - Recommend obtaining urine culture. - Continue supportive care. - Urology will continue to follow closely. - Please consult our service urgently if patient develops fever, intractable pain or other acute changes as this may necessitate urgent surgical intervention. Admission and Anticipated Discharge Date Admission Date: December 21, 2021 Subjective Patient examined at bedside this AM. Asleep on arrival, awakened to name. Still drowsy, but answered questions appropriately. Feels weak. Denies any significant pain or discomfort. She notes some mild RLQ pain with palpation. No left sided pain. No fevers or chills. Denies nausea or vomiting. Denies hematuria or dysuria. Per nursing, patient has been incontinent of urine. She was bladder scanned for 100 mL. On isolation for CDiff. Review of Systems Constitutional: as per Subjective / HPI Gastrointestinal: as per Subjective / HPI Genitourinary: as per Subjective / HPI Physical Exam Constitutional: no acute distress Drowsy Respiratory: O2 via NC Gastrointestinal (Abdomen): Percussion/Palpation: + abdomen tender (mild RLQ tenderness with palpation) and abdomen soft; no guarding and abdomen not rigid Psychiatric: Orientation: alert, oriented to person and oriented to place Genitourinary: no CVA tenderness Results & Data ([facility]) Vital Signs (Past 12 Hours) Vital Signs Temp Pulse Pulse Resp BP Pulse Ox O2 Del Method 12/23/21 07:37 37.5 C 71 18 190/72 H 97 Nasal Cannula 12/23/21 03:07 37.0 C 61 18 159/59 H 97 Nasal Cannula 12/23/21 02:05 63 12/22/21 21:04 71 20 166/51 H O2 Flow Rate 12/23/21 07:37 3 12/23/21 03:07 3 12/23/21 02:05 12/22/21 21:04 PG Care Time/CCT Total # of Minutes Spent Total Time Spent with Patient: Total time spent is greater than 50% in coordination of care (as documented) at patient's floor/unit and/or counseling patient: Coding Level of Care Code 83471 Subseq Hosp Care Lvl 2 Diagnoses Hydronephrosis concurrent with and due to calculi of kidney and ureter N13.2 Kidney stone N20.0
[2021-12-23] MEDS: ONDANSETRON INJ 2 MG/ML 2 ML VIAL IV PRN ×2 (11:37→17:42)
--- NOTE | 2021-12-23 13:09 | Hospitalist Progress Note ---
Date of Service December 23, 2021 Assessment & Plan (1) Hydronephrosis concurrent with and due to calculi of kidney and ureter: Plan 76 yo F with PMhx of HTN, HLD, COPD, Degenerative joint disease of right hip who presented 12/21 with repeated falls, weakness and generalized pain. She was recently admitted to [facility] for NANCY/rhabdomyolysis and falls from Dec 01- and was discharged home with health services.She is being managed for the following: Admitting imagings: CXR with cardiomegaly and without pulmonary edema. Trace pleural effusion with lateral right lung base opacities suggestive of atelectasis/scaring. CT head: No acute findings. C-spine CT: No acute findings. CTAP: Obstructing calculus/cluster of calculi in the left proximal ureter measuring up to 16 mm in length and causes mild left hydronephrosis. Nonobstructing calculi in the right kidney. Also there is pathologically indeterminant 4.1 cm ovoid cystic lesion in the distal pancreatic body which contains internal calcification/debris's. Nonemergent follow-up with GI for possible endoscopic ultrasound is recommended. Pelvic x-ray with moderate right hip osteoarthritis without acute fracture or dislocation. Left hip total joint arthroplasty with chronic revision changes noted. Renal calculi Left mild hydronephrosis Last CT from 12/01/2021 with only 3 mm right nonobstructing nephrolithiasis. Admitting CTAP: see above. On exam, pt w/ no left belly pain. Current abd pain on RLQ, not related to side with obstructive stone on CT. Admitting UA no s/o infection, will send UCx. Pt afebrile, c/w flomax, strain all urine, c/w pain management. Pt drowsy and sleepy likely 2/2 pain meds use, will cut down on opiates pain meds --> Tylenol scheduled, Tylenol 3 discontinued, hydromorphone every 8 hours as needed for severe pain, Toradol as needed for moderate pain, tramadol for mild to moderate pain as needed. Baseline creatinine around 1.6 upon outpatient chart review. Uro on board, plan for cystoscopy and bilateral stent placement likely ruth. NPO midnight Patient with no chest pain, is not very much ambulatory, had echo in April 2020 with ejection fraction of 65%, denies any NM or stroke or stent anywhere in the body, denies diagnosis of heart failure in the past, had COPD which is currently is stable, he is mild to moderate risk for minor surgical procedure like cystoscopy and bilateral stent placement with pros/cons per urology service. Weakness: Frequent falls: Rt hip OA CT abd noted age indeterminate impacted right femoral fracture but Pelvic XR w/ no fracture but has Rt hip moderate OA Ortho evaled, no Ix for now. f/u [facility] ortho in 2 weeks. Pt uses a walker and wheelchair at home. PDMP reviewed. Patient has been on tylenol 3 and alprazolam for sometime. This may be contributing to falls too. PT/OT eval Fall precautions Continue to hold alprazolam for now in view of patient's drowsiness May resume at a lower dose if needed prn Pancreatic cyst: as in admitting CTAP. F/u w/ GI as OP. Elevated troponin: Hypertensive urgency: HTN (hypertension): BP 220/80-90 on admission Pt is compliant with medications at home per report, daughter is RN and manages her medications. Takes clonidine 0.2 mg BID, losartan 50 mg daily, carvedilol 12.5 mg BID, hydralazine 100 mg TID Losartan was increased to 100mg daily and carvedilol to 25mg bid on admission Control pain as this may be contributing Troponin elevated at 48.2, flat trended. May be related to elevated BP. Denies chest pain, c/t telemetry monitoring. Use prn BP meds per protocol. Acute on chronic anemia: OP Chart review w/ baseline Hb of 9-10. Admitting hemoglobin of 8.3, dropped to 7.6 on 12/23. We will repeat H&H at 2 PM today. We will get blood consent. Transfuse for symptomatic anemia or hemoglobin less than 7. Iron profile and fobt will be ordered. Electrolyte abnormality: Monitor and replete as appropriate. Other chronic medical conditions: HLD, COPD -->> continue with/resume home meds as and when appropriate. DVT prophylaxis: SCDs for now in case of OR/possible acute on chronic anemia. CODE STATUS: DNR/DNI 12/23, called and updated patient's daughter Erica. Admission and Anticipated Discharge Date Admission Date: December 21, 2021 Subjective Patient seen and examined at bedside as a follow-up of weakness, frequent falls, right hip osteoarthritis, left proximal ureteral calculi with mild left hydronephrosis. Patient was lying semiupright in bed, drowsy and sleepy at bedside exam, easily arousable upon calling name, on 3 L nasal cannula oxygen, pt aware of not having any urology procedure today and wanted to eat, had bowel movement, reports some low belly pain, communicated with RN for out of bed couple of times a day, will resume her diet and keep her n.p.o. midnight for possible urologic intervention tomorrow. She reports some lower belly pain on Rt. No new issues overnight. Pt has been afebrile, BP high but prn labetalol can be used. Physical Exam Physical Exam: GENERAL: drowsy but arousable, answers appropriately. NAD, on 3L NC O2 HEENT: No pallor, no icterus. Pupils equal, round and reactive to light. Oral mucosa dry. NECK: No JVD, no neck masses. HEART: S1 and S2 heard. Regular rate and rhythm. No murmur, no gallop. RESPIRATORY SYSTEM: Normal AP diameter. No accessory muscle use. No wheezing, no crackles. ABDOMEN: Soft, bowel sounds present, minimal RLQ tender, no distention. CENTRAL NERVOUS SYSTEM: No facial droop. Speech is clear. Obeys simple commands. Moves extremities. EXTREMITIES: No edema, no erythema seen. Results & Data Results & Data ([facility]) Vital Signs (Past 12 Hours) Vital Signs Temp Pulse Pulse Resp BP Pulse Ox O2 Del Method 12/23/21 10:59 37.5 C 68 18 164/72 H 96 Nasal Cannula 12/23/21 08:00 Nasal Cannula 12/23/21 07:37 37.5 C 71 18 190/72 H 97 Nasal Cannula 12/23/21 03:07 37.0 C 61 18 159/59 H 97 Nasal Cannula 12/23/21 02:05 63 O2 Flow Rate 12/23/21 10:59 3 12/23/21 08:00 3 12/23/21 07:37 3 12/23/21 03:07 3 12/23/21 02:05
[2021-12-23] MEDS ORDERED: HYDROmorphone INJ 0.5 MG/0.5 ML SYR IV PRN (13:25)
[2021-12-23 14:16] LABS: Hematocrit (blood only) 26.1 % (34.1-44.9); Hemoglobin 7.9 g/dl (12.0-16.0)
[2021-12-23 14:59] LABS: Folate (Folic Acid) 7.9 ng/ml (>5.38)
[2021-12-23] MEDS: ADVANCED PROBIOTIC 1250 MG CAPSULE PO SCH (15:14)
[2021-12-23] MEDS: LACTATED RINGER'S 1,000 ML IV SCH (17:13)
[2021-12-23] MEDS: KETOROLAC TROMETHAMINE 15 MG/ML VIAL IV PRN (17:43)
[2021-12-23] MEDS: FAMOTIDINE 20 MG TAB PO SCH (22:04)
[2021-12-23] MEDS: PANTOprazole 40 MG TAB PO SCH (22:09)
[2021-12-24] MEDS: ACETAMINOPHEN 325 MG TAB PO SCH ×4 (00:47→17:59)
[2021-12-24] MEDS: LACTATED RINGER'S 1,000 ML IV SCH (05:36)
[2021-12-24 06:49] LABS: Hematocrit (blood only) 25.8 % (34.1-44.9); Hemoglobin 7.8 g/dl (12.0-16.0); Mean Corpuscular Hemoglobin 28.8 pg (25.0-34.0); Mean Corpuscular Hgb Conc 30.2 g/dL (32.0-36.0); Mean Corpuscular Volume 95.2 fL (80.0-100.0); Mean Platelet Volume 9.8 fL (9.4-12.3); Platelet Count 225 K/uL (130-400); RDW Coefficient of Variation 14.3 % (11.5-14.5); RDW Standard Deviation 49.6 fL (36.4-46.3); Red Blood Count 2.71 M/uL (3.93-5.22); White Blood Count 8.63 K/ul (4.8-10.8)
[2021-12-24 07:08] LABS: BUN Creatinine Ratio 22.6 (10-20); Calcium 8.9 mg/dl (8.5-10.1); Creatinine Clr Calc Pharmacy 27.5 ml/min; Est GFR (African American) 34.6 ml/min; Est GFR (Non-African American) 29.9 ml/min; Magnesium 1.8 mg/dl (1.7-2.4); Phosphorus 2.1 mg/dl (2.5-4.9); Potassium 4.3 mmol/L (3.5-5.1)
--- NOTE | 2021-12-24 08:01 | Urology Progress Note ---
Date of Service December 24, 2021 Assessment & Plan (1) Hydronephrosis concurrent with and due to calculi of kidney and ureter: (2) Kidney stone: (3) NANCY (acute kidney injury): Plan 76yo F who presented with weakness/falls and admitted with possible right hip fx, elevated troponin, and hypertensive urgency. A CT a/p on arrival was also notable for an obstructing calculus/cluster of calculi in the left proximal ureter, measuring up to 16 mm in length and causing mild left hydronephrosis and additional calculi in the right kidney. - Plan of care and imaging reviewed with Dr. Jimenez. - Pt afebrile, hypertensive. - Labs reviewed - WBC 8.63, Creatinine up to 1.64, Hemoglobin 7.8. - Urinalysis not suggestive of infection. No culture pending. - Has been incontinent of urine, continue to monitor. Bladder scan prn. Plan - - Given her NANCY and that she appears to have bilateral obstructing stones, will plan to proceed to OR today for cystoscopy and bilateral ureteral stent placement with Dr. Jimenez. - OR notified. Covid test negative. Will cover with IV Gentamicin preop eratively. - Keep NPO. - Urology will follow. Attending note: Extensively reviewed with patient. Also had a long conversation with patient's family. Patient independently assessed, examined, and assessed. Agree with above. Patient with obstructing stone on left with possible UPJ stone on right. Numerous stones on right kidney. Patient is acutely ill dealing with hypertensive crisis and anemia. Has been having elevated troponins. Patient acutely dealing with weakness and issues related to fall. Has been deconditioned. Possibly exacerbated due to current stone issues. Extensively reviewed with patient and family Discussed different options and interventions. Due to patient's ongoing issues as well as other medical problems and concerns currently causing issues did discuss possibility of stent placement with drainage of kidneys. Reviewed different options for this. Discussed options moving forward. Discussed possible need for intervention for stones at some point. Reviewed extensively. Risk and benefits discussed. Risks and benefits discussed at length for procedure. These include bleeding, infection, injury to surrounding tissues or organs, and risks associated with anesthesia. Patient states understanding and agrees to proceed. Will sign consent and proceed with Cystoscopy and possible bilateral stents. Admission and Anticipated Discharge Date Admission Date: December 21, 2021 Subjective Patient examined at bedside this AM. Awake, resting in bed on arrival. Still drowsy, but answered questions appropriately. Denies any significant pain or discomfort at present. Notes some mild nausea this morning. No vomiting. Denies fevers or chills. Per nursing, patient has been incontinent of urine. On isolation for CDiff. Has been NPO. Review of Systems Constitutional: as per Subjective / HPI Genitourinary: as per Subjective / HPI Physical Exam Constitutional: no acute distress Drowsy Respiratory: O2 via NC Skin: No visible rashes or lesions to exposed skin areas Neurologic: awake Psychiatric: Orientation: alert, oriented x 3 and cooperative Results & Data ([facility]) Vital Signs (Past 12 Hours) Vital Signs Temp Pulse Pulse Resp BP Pulse Ox O2 Del Method 12/24/21 06:06 37.3 C 74 18 157/61 H 96 Nasal Cannula 12/24/21 02:39 37.3 C 69 18 147/71 H 97 Nasal Cannula 12/23/21 23:43 79 12/23/21 22:22 Nasal Cannula 12/23/21 22:21 37.0 C 77 20 182/69 H 96 Nasal Cannula O2 Flow Rate 12/24/21 06:06 3 12/24/21 02:39 3 12/23/21 23:43 12/23/21 22:22 3 12/23/21 22:21 3 PG Care Time/CCT Total # of Minutes Spent Total Time Spent with Patient: Total time spent is greater than 50% in coordination of care (as documented) at patient's floor/unit and/or counseling patient: Coding Level of Care Code 30117 Subseq Hosp Care Lvl 2 Diagnoses Hydronephrosis concurrent with and due to calculi of kidney and ureter N13.2 Kidney stone N20.0 NANCY (acute kidney injury) N17.9
--- NOTE | 2021-12-24 08:08 | Anesthesiology Consultation ---
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 Surgery Operation Date: 12/24/21 09:30 Proposed Procedures p Cystoscopy, Bilateral Retrogradepyelogram, Bilateral Stents - Cm Jimenez DO Height/Weight Height: 5 ft 1 in Weight: 80 kg Allergies Allergy/AdvReac Type Severity Reaction Status Date / Time amlodipine Allergy Unknown PT'S LIST Verified 12/21/21 16:08 cefuroxime Allergy Unknown PT'S LIST Verified 12/21/21 16:08 Cephalosporins Allergy Unknown PT'S LIST Verified 12/21/21 16:08 ciprofloxacin Allergy Unknown PT'S LIST Verified 12/21/21 16:08 erythromycin base Allergy Unknown PT'S LIST Verified 12/21/21 16:08 Medications Home Medications Medication Instructions Recorded Confirmed Last Taken acetaminophen 300 mg-codeine 30 mg 1 tab PO Q6H PRN Moderate Pain 12/21/21 12/21/21 Unknown tablet (Scale Score 5-6) albuterol sulfate 2.5 mg/3 mL 2.5 mg inhalation Q4H PRN 12/21/21 12/21/21 Unknown (0.083 %) solution for nebulization Shortness Of Breath albuterol sulfate 90 mcg/actuation 2 puff inhalation DIRECTED PRN 12/21/21 12/21/21 Unknown aerosol inhaler Shortness Of Breath alprazolam 0.5 mg tablet (Xanax) 0.5 mg PO BID PRN Sleep 12/21/21 12/21/21 Unknown aspirin 81 mg tablet 81 mg PO DAILY 12/21/21 12/21/21 Unknown carvedilol 12.5 mg tablet (Coreg) 12.5 mg PO BID 12/21/21 12/21/21 Unknown clonidine HCl 0.2 mg tablet 0.2 mg PO BID 12/21/21 12/21/21 Unknown ergocalciferol (vitamin D2) 1,250 1,250 mcg PO WK 12/21/21 12/21/21 Unknown mcg (50,000 unit) capsule (Vitamin D2) hydralazine 100 mg tablet 100 mg PO TID 12/21/21 12/21/21 Unknown loratadine 10 mg tablet (Claritin) 10 mg PO DAILY 12/21/21 12/21/21 Unknown losartan 50 mg tablet 50 mg PO DAILY 12/21/21 12/21/21 Unknown mirtazapine 30 mg tablet (Remeron) 30 mg PO HS 12/21/21 12/21/21 Unknown pantoprazole 40 mg tablet,delayed 40 mg PO HS 12/21/21 12/21/21 Unknown release (Protonix) umeclidinium 62.5 mcg-vilanterol 1 inh inhalation DAILY 12/21/21 12/21/21 Unknown 25 mcg/actuation powdr for inhalation (Anoro Ellipta) Active Medications Generic Name Dose Route Start Last Admin Trade Name Freq PRN Reason Stop Dose Admin Acetaminophen 650 mg 12/22/21 14:00 12/24/21 05:37 Acetaminophen 325 Mg Tab PO 01/21/22 13:59 650 mg Q6 SABAS Administration Aspirin 81 mg 12/22/21 09:00 12/23/21 07:55 Aspirin 81 Mg Ectab PO 01/21/22 08:59 81 mg DAILY SABAS Administration Carvedilol 25 mg 12/21/21 21:00 12/23/21 22:09 Carvedilol 25 Mg Tab PO 01/20/22 20:59 25 mg BID SABAS Administration Clonidine HCl 0.2 mg 12/22/21 21:00 12/23/21 22:08 Clonidine Hcl 0.1 Mg Tab PO 01/21/22 20:59 0.2 mg BID SABAS Administration Duloxetine HCl 30 mg 12/22/21 09:00 12/23/21 07:53 Duloxetine Hcl 30 Mg Cap PO 01/21/22 08:59 30 mg QAM SABAS Administration Famotidine 10 mg 12/23/21 21:00 12/23/21 22:04 Famotidine 20 Mg Tab PO 01/22/22 20:59 10 mg BID SABAS Administration Hydralazine HCl 100 mg 12/21/21 21:00 12/23/21 22:07 Hydralazine Tab 50 Mg Tab PO 01/20/22 20:59 100 mg TID SABAS Administration Hydromorphone HCl 0.5 mg 12/23/21 13:25 12/23/21 22:13 Hydromorphone Inj 0.5 Mg/0.5 Ml Syr IV 01/05/22 17:14 0.5 mg Q8H PRN Administration Severe Pain Lactated Ringer's 1,000 mls @ 65 mls/hr 12/23/21 17:00 12/24/21 05:36 Lr IV 12/24/21 23:46 65 mls/hr .[id number] SABAS Administration Ketorolac Tromethamine 15 mg 12/21/21 18:28 12/23/21 17:43 Ketorolac Tromethamine 15 Mg/Ml Vial IV 12/26/21 18:27 15 mg Q6H PRN Administration Moderate Pain (4-6) Labetalol HCl 10 mg 12/21/21 18:28 12/22/21 11:53 Labetalol Hcl Iv 5 Mg/Ml 20ml IV 01/20/22 18:27 10 mg Q4H PRN Administration htn Protocol Lactobacillus Acidophilus 2 cap 12/23/21 13:15 12/23/21 15:14 Advanced Probiotic 1250 Mg Capsule PO 01/22/22 13:14 2 cap DAILY SABAS Administration Loratadine 10 mg 12/22/21 09:00 12/23/21 07:53 Loratadine 10 Mg Tab PO 01/21/22 08:59 10 mg DAILY SABAS Administration Losartan Potassium 100 mg 12/22/21 09:00 12/23/21 07:54 Losartan Potassium 50 Mg Tab PO 01/21/22 08:59 100 mg DAILY SABAS Administration Ondansetron HCl 4 mg 12/22/21 08:27 12/23/21 17:42 Ondansetron Inj 2 Mg/Ml 2 Ml Vial IV 01/21/22 08:26 4 mg Q6H PRN Administration Nausea And Vomiting Pantoprazole Sodium 40 mg 12/21/21 21:00 12/23/21 22:09 Pantoprazole 40 Mg Tab PO 01/20/22 20:59 40 mg HS SABAS Administration Tamsulosin HCl 0.4 mg 12/21/21 18:28 12/23/21 07:53 Tamsulosin Hcl 0.4 Mg Cap PO 01/20/22 18:27 0.4 mg QAM SABAS Administration Umeclidinium/Vilanterol 1 puffs 12/22/21 09:00 12/23/21 07:54 Umeclidinium/Vilanterol 62.5/25mcg 7 Puffs/Inhaler INH 01/21/22 08:59 1 puffs DAILY SABAS Administration Past Medical History Medical History COPD (chronic obstructive pulmonary disease) Degenerative joint disease of right hip Fracture of right hip HLD (hyperlipidemia) HTN (hypertension) No pertinent family history Rhabdomyolysis Past Family History Family History Mother Coronary heart disease Father Coronary heart disease Brother Diabetes Brother Coronary heart disease Other Heart disease Hypertension Past Surgical History Surgical History History of hip surgery History of removal of ovarian cyst Hx of appendectomy Hx of hernia repair Hx of hysterectomy Social History Smoking Status: Former smoker Do You Dip or Chew Tobacco: No Hx Alcohol Use: No Hx Substance Use: No substance use type: does not use Physical Exam Vital Signs Last Vital Signs Temp 99.1 F 12/24/21 06:06 Pulse 74 12/24/21 06:06 Resp 18 12/24/21 06:06 BP 157/61 H 12/24/21 06:06 Pulse Ox 96 12/24/21 06:06 O2 Del Method 12/24/21 06:06 O2 Flow Rate 3 12/24/21 06:06 Testing Laboratory Results 12/24/21 06:30 12/24/21 06:30 PT 11.6 Seconds (9.0-12.0) 12/21/21 13:00 INR 1.1 (0.9-1.1) 12/21/21 13:00 APTT 30.5 Seconds (21.0-31.0) 12/21/21 13:00 Hemoglobin A1c 5.4 % (4.5-5.6) 12/23/21 07:02 Urine Color Yellow 12/21/21 13:10 Urine Appearance Cloudy (Clear) A 12/21/21 13:10 Urine pH 5.0 (4.5-7.5) 12/21/21 13:10 Ur Specific [place] 1.020 (1.000-1.030) 12/21/21 13:10 Urine Protein 2+ (Negative) H 12/21/21 13:10 Urine Glucose (UA) Negative (Negative) 12/21/21 13:10 Urine Ketones Negative (Negative) 12/21/21 13:10 Urine Nitrite Negative (Negative) 12/21/21 13:10 Ur Leukocyte Esterase Negative (Negative) 12/21/21 13:10 Urine WBC (Auto) 1-5 /hpf (0-5) 12/21/21 13:10 Urine RBC (Auto) >30 /hpf (0-4) H 12/21/21 13:10 U Hyaline Cast (Auto) 1-5 /lpf (0-5) 12/21/21 13:10 U Epithel Cells (Auto) 5-10 /lpf (0-5) H 12/21/21 13:10 Urine Bacteria (Auto) Negative (Negative) 12/21/21 13:10 Electrocardiogram Date: 12/22/21 Findings: + NSR @ (72 bpm) Chest X-Ray Date: 12/21/21 IMPRESSION: 1. Cardiomegaly without pulmonary edema. 2. Trace pleural effusions with lateral right lung base opacities suggestive of atelectasis/scarring.
[2021-12-24] MEDS: ADVANCED PROBIOTIC 1250 MG CAPSULE PO SCH (08:40)
[2021-12-24] MEDS: LOSARTAN POTASSIUM 50 MG TAB PO SCH (08:40)
[2021-12-24] MEDS: UMECLIDINIUM/VILANTEROL 62.5/25MCG 7 PUFFS/INHALER INH SCH (08:40)
[2021-12-24] MEDS: hydrALAZINE TAB 50 MG TAB PO SCH ×3 (08:41→21:02)
[2021-12-24] MEDS: ASPIRIN 81 MG ECTAB PO SCH (08:41)
[2021-12-24] MEDS: TAMSULOSIN HCL 0.4 MG CAP PO SCH (08:41)
[2021-12-24] MEDS: FAMOTIDINE 20 MG TAB PO SCH ×2 (08:41→21:01)
[2021-12-24] MEDS: LORATADINE 10 MG TAB PO SCH (08:41)
[2021-12-24] MEDS: DULoxetine HCL 30 MG CAP PO SCH (08:41)
[2021-12-24] MEDS: carvediloL 25 MG TAB PO SCH ×2 (08:41→21:00)
[2021-12-24] MEDS: cloNIDine HCL 0.1 MG TAB PO SCH ×2 (08:41→21:02)
[2021-12-24] MEDS: ONDANSETRON INJ 2 MG/ML 2 ML VIAL IV PRN ×2 (08:42→21:18)
[2021-12-24] MEDS ORDERED: GENTAMICIN SULFATE 80 MG in DEXTROSE 5% 100 ML IV ONE (09:00)
[2021-12-24] MEDS ORDERED: ONDANSETRON INJ 2 MG/ML 2 ML VIAL ONE (10:07)
[2021-12-24] MEDS ORDERED: LIDOCAINE 2% MPF LOCAL 5 ML VIAL INFIL ONE (10:07)
[2021-12-24] MEDS ORDERED: PROPOFOL IV EMULSION 10 MG/ML 20 ML VIAL IV ONE ×2 (10:07→10:12)
[2021-12-24] MEDS ORDERED: fentaNYL citrate 100 MCG/2 ML VIAL ONE (10:08)
[2021-12-24] MEDS ORDERED: MIDAZOLAM HCL 1 MG/ML 2ML VIAL ONE (10:08)
[2021-12-24] MEDS ORDERED: ONDANSETRON INJ 2 MG/ML 2 ML VIAL IV PRN (10:34)
[2021-12-24] MEDS ORDERED: ATROPINE SULFATE 0.1 MG/ML 10ML SYR IV PRN (10:34)
[2021-12-24] MEDS ORDERED: fentaNYL citrate 100 MCG/2 ML VIAL IV PRN (10:34)
[2021-12-24] MEDS ORDERED: ePHEDrine sulfate 50 MG/ML AMP IV PRN (10:34)
--- NOTE | 2021-12-24 12:30 | Operative Report ---
PG Post Operative Report Pre & Post Diagnosis Operation Date: 12/24/21 09:30 Pre-Op Diagnosis: Hydronephrosis concurrent with and due to calculi of kidney and ureter Post-Op Diagnosis: Hydronephrosis concurrent with and due to calculi of kidney and ureter I identified the patient and participated in the time-out.: Yes Procedure Operation Date: 12/24/21 09:30 Actual Procedures p Cystoscopy with Bilateral Retrograde Pyelogram, Bilateral Stent Placement, and Bladder Stone Extraction/Destruction (Bilateral) - Cm Jimenez DO Surgeon Cm Jimenez, II, DO Marketing Services Rep None Estimated Blood Loss 1 Findings Consistent with Post-Op Diagnosis Stents placed in good position. Numerous stones throughout the base of bladder with large amount of debris in the bladder as well. Specimens Bladder stones Drains 6 Fr by 24 bilateral. 18 [place] Kebede catheter Anesthesia Type MAC Complications none Disposition Disposition: Recovery Room Indications Patient with obstruction. Risks and benefits discussed at length. Description of Procedure Patient was consented and brought back to the operating room. Patient was placed under anesthesia in the supine position and moved to the dorsal lithotomy position. Patient was prepped and draped in the regular sterile fashion. A time out was completed. A 30degree Cystoscope was placed into the bladder and the entire bladder was examined. The UO's were identified. A large amount of stone and debris was noted in the base of the bladder. The bladder was copiously irrigated. Stones that were too large to irrigate out were destroyed and removed. Multiple stone fragments were irrigated out with numerous/innumerable stones in the base of the bladder majority of which were between 3 and 5 mm. 2 to 3 stones were approximately 7 to 8 mm in size. All the stones and debris were able to be irrigated. Starting on the left and then heading to the right, the UO was cannulized with a catheter and a retrograde pyelogram was completed. A wire was then placed. With the wire in place, a 6 Fr Double J stent was placed. It was confirmed with fluoroscopy. This was completed for the left and then the right ureter. The stents were placed in good position without issues. With the stents in place, the bladder was emptied. The scope was removed. A 18 [place]an Kebede catheter was placed for drainage of the bladder due to significant debris within the bladder on initial presentation. The patient was cleaned, aroused from anesthesia, and transferred to the pacu in stable condition having tolerated the procedure well with no complications. I was present and participated in all aspects of the procedure. The patient will be monitored in the PACU until transferred. Patient will be monitored on the floor and continue to follow. Bilateral stents are in place with good drainage. The stones within the bladder have been extracted or destroyed and removed. A catheter was left in place for full drainage and can be removed over the next few days depending on how well the patient improves. We will plan to maintain stents until finalize plan for stone treatment I attest to the content of the Intraoperative Record and any orders documented therein. Any exceptions are noted below.
--- NOTE | 2021-12-24 12:40 | Anesthesiology Progress Note ---
Date of Service December 24, 2021 Anesthesia Post Procedure Vital Signs Vital Signs: Temp Pulse Pulse Pulse Resp BP BP 12/24/21 12:35 63 14 152/53 H 12/24/21 12:27 99.3 F 62 15 126/55 L 12/24/21 10:31 97.9 F 64 18 144/67 H 12/24/21 06:06 99.1 F 74 18 157/61 H 12/24/21 02:39 99.1 F 69 18 147/71 H 12/23/21 23:43 79 12/23/21 22:22 12/23/21 22:21 98.6 F 77 20 182/69 H 12/23/21 18:36 98.6 F 69 20 146/49 H 12/23/21 14:47 99.7 F H 66 20 149/67 H Pulse Ox O2 Del Method O2 Flow Rate 12/24/21 12:35 99 Oxymask 4 12/24/21 12:27 98 Oxymask 4 12/24/21 10:31 97 Room Air 12/24/21 06:06 96 Nasal Cannula 3 12/24/21 02:39 97 Nasal Cannula 3 12/23/21 23:43 12/23/21 22:22 Nasal Cannula 3 12/23/21 22:21 96 Nasal Cannula 3 12/23/21 18:36 98 Nasal Cannula 3 12/23/21 14:47 96 Nasal Cannula 3 Pain Intensity Lower Back: Pain Intensity: 3 Right Hip: Pain Intensity: 8 Generalized: Pain Intensity: 5 Abdomen: Pain Intensity: 4 Transfer of Care Handoff Completed per policy Notes Mental Status: alert / awake / arousable and participated in evaluation Patient Amnestic to Procedure: Yes Nausea / Vomiting: adequately controlled Pain: adequately controlled Airway Patency, RR, SpO2: stable & adequate BP & HR: stable & adequate Hydration State: stable & adequate Anesthetic Complications: no major complications apparent and Pt Satisfied with anesthetic care
--- NOTE | 2021-12-24 13:45 | Fluoroscopy Report ---
FL retrograde includes kub CLINICAL HISTORY: Bilateral retrograde pyelogram and stent placement. COMPARISON STUDY: None. FLUOROSCOPY TIME: 34 seconds. FINDINGS: 4 fluoroscopic spot images of the abdomen and pelvis demonstrate retrograde opacification o f the bilateral renal collecting systems and ureters followed by placement of bilateral ureteral sten ts. The ureteral stents appear in good position. IMPRESSION: Fluoroscopic assistance provided for bilateral ureteral stent placement which appear in g ood position. ACT 112: Negative or not required by law. Electronically signed by: Randy Waldron M.D. 12/24/2021 1:44 PM
[2021-12-24] MEDS ORDERED: OPTIRAY 300 IV ONE (14:11)
[2021-12-24] MEDS ORDERED: LOPERAMIDE HCL 2 MG CAP PO STA (15:15)
--- NOTE | 2021-12-24 17:34 | Hospitalist Progress Note ---
Date of Service December 24, 2021 Assessment & Plan (1) Hydronephrosis concurrent with and due to calculi of kidney and ureter: Plan 76 yo F with PMhx of HTN, HLD, COPD, Degenerative joint disease of right hip who presented 12/21 with repeated falls, weakness and generalized pain. She was recently admitted to [facility] for NANCY/rhabdomyolysis and falls from Dec 01- and was discharged home with health services.She is being managed for the following: Admitting imagings: CXR with cardiomegaly and without pulmonary edema. Trace pleural effusion with lateral right lung base opacities suggestive of atelectasis/scaring. CT head: No acute findings. C-spine CT: No acute findings. CTAP: Obstructing calculus/cluster of calculi in the left proximal ureter measuring up to 16 mm in length and causes mild left hydronephrosis. Nonobstructing calculi in the right kidney. Also there is pathologically indeterminant 4.1 cm ovoid cystic lesion in the distal pancreatic body which contains internal calcification/debris's. Nonemergent follow-up with GI for possible endoscopic ultrasound is recommended. Pelvic x-ray with moderate right hip osteoarthritis without acute fracture or dislocation. Left hip total joint arthroplasty with chronic revision changes noted. Renal calculi Left mild hydronephrosis Last CT from 12/01/2021 with only 3 mm right nonobstructing nephrolithiasis. Admitting CTAP: see above. On exam, pt w/ no left belly pain. Current abd pain on RLQ, not related to side with obstructive stone on CT. Admitting UA no s/o infection. Pt afebrile, c/w flomax, strain all urine, c/w pain management. Pt drowsy and sleepy likely 2/2 pain meds use, will cut down on opiates pain meds --> Tylenol scheduled, Tylenol 3 discontinued, hydromorphone every 8 hours as needed for severe pain, Toradol as needed for moderate pain, tramadol for mild to moderate pain as needed. Baseline creatinine around 1.6 upon outpatient chart review. Uro on board, status post cystoscopy and bilateral stent placement 12/24/2021. Patient will need outpatient follow-up with urology. Patient reports improvement in her belly pain. Weakness: Frequent falls: Rt hip OA CT abd noted age indeterminate impacted right femoral fracture but Pelvic XR w/ no fracture but has Rt hip moderate OA Ortho evaled, no Ix for now. f/u [facility] ortho in 2 weeks. Pt uses a walker and wheelchair at home. PDMP reviewed. Patient has been on tylenol 3 and alprazolam for sometime. This may be contributing to falls too. PT/OT eval Fall precautions Continue to hold alprazolam for now in view of patient's drowsiness May resume at a lower dose if needed prn Pancreatic cyst: as in admitting CTAP. F/u w/ GI as OP. Elevated troponin: Hypertensive urgency: HTN (hypertension): BP 220/80-90 on admission Pt is compliant with medications at home per report, daughter is RN and manages her medications. Takes clonidine 0.2 mg BID, losartan 50 mg daily, carvedilol 12.5 mg BID, hydralazine 100 mg TID Losartan was increased to 100mg daily and carvedilol to 25mg bid on admission Control pain as this may be contributing Troponin elevated at 48.2, flat trended. May be related to elevated BP. Denies chest pain, c/t telemetry monitoring. Use prn BP meds per protocol. Acute on chronic anemia: OP Chart review w/ baseline Hb of 9-10. Admitting hemoglobin of 8.3, dropped to 7.6 on 12/23. Transfuse for symptomatic anemia or hemoglobin less than 7. Iron profile with low iron and low normal ferritin B12/folate. Start supplements. Electrolyte abnormality: Monitor and replete as appropriate. Other chronic medical conditions: HLD, COPD -->> continue with/resume home meds as and when appropriate. DVT prophylaxis: SCDs Re: acute on chronic anemia. CODE STATUS: DNR/DNI 12/23, called and updated patient's daughter Erica. PT/OT, CM to assist w/ dc planning. Admission and Anticipated Discharge Date Admission Date: December 21, 2021 Subjective Patient seen and examined at bedside as a follow-up of weakness, frequent falls, right hip osteoarthritis, left proximal ureteral calculi with mild left hydronephrosis. Patient was lying in bed, sleepy at bedside exam, more easily arousable upon calling name today, on 4 L nasal cannula oxygen, status post cystoscopy and bilateral ureteral stent placement today. Patient reports belly pain improving. Patient reports having poor appetite and is having loose bowel movements, patient states that she used to take Imodium at home, will order Imodium. Patient denies any new acute events overnight. She denies any headache or dizziness. Patient denies fever or chills. Patient denies cough or sore throat. Physical Exam Physical Exam: GENERAL: sleepy but arousable, answers appropriately. NAD, on 4L NC O2 HEENT: No pallor, no icterus. Pupils equal, round and reactive to light. Oral mucosa moist. NECK: No JVD, no neck masses. HEART: S1 and S2 heard. Regular rate and rhythm. No murmur, no gallop. RESPIRATORY SYSTEM: Normal AP diameter. No accessory muscle use. No wheezing, no crackles. ABDOMEN: Soft, bowel sounds present, minimal RLQ tender, no distention. CENTRAL NERVOUS SYSTEM: No facial droop. Speech is clear. Obeys simple commands. Moves extremities. EXTREMITIES: No edema, no erythema seen. Results & Data Results & Data ([facility]) Vital Signs (Past 12 Hours) Vital Signs Temp Pulse Pulse Pulse Resp BP BP 12/24/21 14:00 36.4 C L 65 20 165/69 H 12/24/21 13:00 36.4 C L 65 20 168/69 H 12/24/21 16:00 64 12/24/21 16:00 12/24/21 08:00 12/24/21 08:00 12/24/21 12:55 37.5 C 59 L 16 165/65 H 12/24/21 12:45 66 17 167/63 H 12/24/21 12:35 63 14 152/53 H 12/24/21 12:27 37.4 C 62 15 126/55 L 12/24/21 10:31 36.6 C 64 18 144/67 H 12/24/21 06:06 37.3 C 74 18 157/61 H Pulse Ox Pulse Ox O2 Del Method O2 Del Method O2 Flow Rate O2 Flow Rate 12/24/21 14:00 94 Nasal Cannula 3 12/24/21 13:00 94 Nasal Cannula 3 12/24/21 16:00 12/24/21 16:00 92 Nasal Cannula 3 12/24/21 08:00 Nasal Cannula 3 12/24/21 08:00 94 Nasal Cannula 3 12/24/21 12:55 95 Oxymask 2 12/24/21 12:45 96 Oxymask 2 12/24/21 12:35 99 Oxymask 4 12/24/21 12:27 98 Oxymask 4 12/24/21 10:31 97 Room Air 12/24/21 06:06 96 Nasal Cannula 3
[2021-12-24] MEDS ORDERED: LOPERAMIDE HCL 2 MG CAP PO ONE (17:55)
[2021-12-24] MEDS: FOLIC ACID 1 MG TAB PO SCH (17:59)
[2021-12-24] MEDS: CYANOCOBALAMIN (B-12) 100 MCG TABLET PO SCH (17:59)
[2021-12-24] MEDS: PANTOprazole 40 MG TAB PO SCH (21:02)
[2021-12-24] MEDS: POT PHOSPHATE MONOBASIC W/ SOD TAB PO SCH (21:03)
[2021-12-25] MEDS: ACETAMINOPHEN 325 MG TAB PO SCH ×4 (00:27→17:01)
[2021-12-25] MEDS: LACTATED RINGER'S 1,000 ML IV SCH ×3 (05:24→23:14)
[2021-12-25 06:05] LABS: Hemoglobin 8.5 g/dl (12.0-16.0); Mean Corpuscular Hemoglobin 29.9 pg (25.0-34.0); Mean Corpuscular Hgb Conc 31.5 g/dL (32.0-36.0); Mean Corpuscular Volume 95.1 fL (80.0-100.0); Mean Platelet Volume 9.9 fL (9.4-12.3); Platelet Count 253 K/uL (130-400); RDW Coefficient of Variation 14.2 % (11.5-14.5); RDW Standard Deviation 49.4 fL (36.4-46.3); Red Blood Count 2.84 M/uL (3.93-5.22); White Blood Count 9.25 K/ul (4.8-10.8)
--- NOTE | 2021-12-25 06:19 | Urology Progress Note ---
Date of Service December 25, 2021 Assessment & Plan (1) Hydronephrosis concurrent with and due to calculi of kidney and ureter: Plan 76-year-old female who is status post cystoscopy with bilateral stent placement and bladder stone extraction on 12/25/2021 Patient is stable today. Symptoms appear to be unrelated to stent placement as she says they were there present to procedure Continue Flomax for stent discomfort Kebede catheter can be removed per primary team at their discretion Urology to follow peripherally. We will schedule outpatient follow-up to discuss stone treatment. Admission and Anticipated Discharge Date Admission Date: December 21, 2021 Subjective Patient is status post cystoscopy with bilateral ureteral stent placement and bladder stone extraction on 12/24/2021. She reports she is still having vague abdominal pain. She denies any new discomfort from the stents or Kebede catheter. She states the symptoms were present prior to stent placement. Leukocytosis and creatinine are stable today. Urine culture is pending. Review of Systems Review of Systems: 14 point review of systems negative outside of what is listed above in HPI Physical Exam Physical Exam: General: Alert and oriented, no acute distress HEENT: Normocephalic, mucous membranes moist Pulmonary: Nonlabored respirations Abdomen: Nondistended Extremities: Moves all 4 spontaneously Neuro: No gross deficits Skin: Warm, dry, no rashes noted Results & Data ([facility]) Vital Signs (Past 12 Hours) Vital Signs Temp Pulse Pulse Resp BP Pulse Ox O2 Del Method 12/25/21 04:00 36.9 C 67 16 152/67 H 98 Nasal Cannula 12/24/21 22:17 63 12/24/21 22:15 36.5 C 66 16 118/62 92 Nasal Cannula 12/24/21 21:00 Nasal Cannula 12/24/21 19:53 37 C 70 16 150/57 H 98 Nasal Cannula O2 Flow Rate 12/25/21 04:00 4 12/24/21 22:17 12/24/21 22:15 4 12/24/21 21:00 3 12/24/21 19:53 4 PG Care Time/CCT Total # of Minutes Spent Total Time Spent with Patient: Total time spent is greater than 50% in coordination of care (as documented) at patient's floor/unit and/or counseling patient: [place] [address] Subseq Hosp Care Lvl 2 Patient Type Established Diagnoses Hydronephrosis concurrent with and due to calculi of kidney and ureter N13.2
[2021-12-25 07:05] LABS: BUN Creatinine Ratio 23.3 (10-20); Calcium 8.9 mg/dl (8.5-10.1); Creatinine Clr Calc Pharmacy 27.7 ml/min; Est GFR (African American) 34.9 ml/min; Est GFR (Non-African American) 30.1 ml/min; Magnesium 1.7 mg/dl (1.7-2.4); Phosphorus 2.6 mg/dl (2.5-4.9); Potassium 4.1 mmol/L (3.5-5.1)
[2021-12-25] MEDS: ONDANSETRON INJ 2 MG/ML 2 ML VIAL IV PRN ×2 (09:19→20:39)
[2021-12-25] MEDS: CYANOCOBALAMIN (B-12) 100 MCG TABLET PO SCH (09:21)
[2021-12-25] MEDS: FOLIC ACID 1 MG TAB PO SCH (09:21)
[2021-12-25] MEDS: FAMOTIDINE 20 MG TAB PO SCH ×2 (09:22→20:34)
[2021-12-25] MEDS: TAMSULOSIN HCL 0.4 MG CAP PO SCH (09:22)
[2021-12-25] MEDS: FERROUS GLUCONATE 324 MG TAB PO SCH (09:22)
[2021-12-25] MEDS: POT PHOSPHATE MONOBASIC W/ SOD TAB PO SCH ×3 (09:22→17:01)
[2021-12-25] MEDS: cloNIDine HCL 0.1 MG TAB PO SCH ×2 (09:22→20:32)
[2021-12-25] MEDS: ASPIRIN 81 MG ECTAB PO SCH (09:22)
[2021-12-25] MEDS: LORATADINE 10 MG TAB PO SCH (09:23)
[2021-12-25] MEDS: DULoxetine HCL 30 MG CAP PO SCH (09:23)
[2021-12-25] MEDS: LOSARTAN POTASSIUM 50 MG TAB PO SCH (09:23)
[2021-12-25] MEDS: ADVANCED PROBIOTIC 1250 MG CAPSULE PO SCH (09:23)
[2021-12-25] MEDS: hydrALAZINE TAB 50 MG TAB PO SCH ×3 (09:23→20:33)
[2021-12-25] MEDS: carvediloL 25 MG TAB PO SCH ×2 (09:23→20:33)
[2021-12-25] MEDS: UMECLIDINIUM/VILANTEROL 62.5/25MCG 7 PUFFS/INHALER INH SCH (09:24)
[2021-12-25] MEDS ORDERED: MAGNESIUM SULFATE / D5W 1 GM/100 ML BAG IV ONE (09:24)
[2021-12-25] MEDS: LOPERAMIDE HCL 2 MG CAP PO PRN (11:59)
[2021-12-25] MEDS ORDERED: hydrOXYzine HCl 25 MG TAB PO PRN (13:47)
--- NOTE | 2021-12-25 18:25 | Hospitalist Progress Note ---
Date of Service December 25, 2021 Assessment & Plan (1) Hydronephrosis concurrent with and due to calculi of kidney and ureter: Plan 76 yo F with PMhx of HTN, HLD, COPD, Degenerative joint disease of right hip who presented 12/21 with repeated falls, weakness and generalized pain. She was recently admitted to [facility] for NANCY/rhabdomyolysis and falls from Dec 01- and was discharged home with health services.She is being managed for the following: Admitting imagings: CXR with cardiomegaly and without pulmonary edema. Trace pleural effusion with lateral right lung base opacities suggestive of atelectasis/scaring. CT head: No acute findings. C-spine CT: No acute findings. CTAP: Obstructing calculus/cluster of calculi in the left proximal ureter measuring up to 16 mm in length and causes mild left hydronephrosis. Nonobstructing calculi in the right kidney. Also there is pathologically indeterminant 4.1 cm ovoid cystic lesion in the distal pancreatic body which contains internal calcification/debris's. Nonemergent follow-up with GI for possible endoscopic ultrasound is recommended. Pelvic x-ray with moderate right hip osteoarthritis without acute fracture or dislocation. Left hip total joint arthroplasty with chronic revision changes noted. Renal calculi Left mild hydronephrosis Last CT from 12/01/2021 with only 3 mm right nonobstructing nephrolithiasis. Admitting CTAP: see above. On exam, pt w/ no left belly pain. Current abd pain on RLQ, not related to side with obstructive stone on CT. Admitting UA no s/o infection. Pt afebrile, c/w flomax, strain all urine, c/w pain management. Pt drowsy and sleepy likely 2/2 pain meds use, will cut down on opiates pain meds --> Tylenol scheduled, Tylenol 3 discontinued, hydromorphone every 8 hours as needed for severe pain, Toradol as needed for moderate pain, tramadol for mild to moderate pain as needed. Baseline creatinine around 1.6 upon outpatient chart review. Uro on board, status post cystoscopy and bilateral stent placement 12/24/2021. Patient will need outpatient follow-up with urology. Patient reports improvement in her belly pain. Weakness: Frequent falls: Rt hip OA CT abd noted age indeterminate impacted right femoral fracture but Pelvic XR w/ no fracture but has Rt hip moderate OA Ortho evaled, no Ix for now. f/u [facility] ortho in 2 weeks. Pt uses a walker and wheelchair at home. PDMP reviewed. Patient has been on tylenol 3 and alprazolam for sometime. This may be contributing to falls too. PT/OT eval Fall precautions Continue to hold alprazolam for now in view of patient's drowsiness May resume at a lower dose if needed prn. Will use Vistaril as needed for the time being. Pancreatic cyst: as in admitting CTAP. F/u w/ GI as OP. Elevated troponin: Hypertensive urgency: HTN (hypertension): BP 220/80-90 on admission Pt is compliant with medications at home per report, daughter is RN and manages her medications. Takes clonidine 0.2 mg BID, losartan 50 mg daily, carvedilol 12.5 mg BID, hydralazine 100 mg TID Losartan was increased to 100mg daily and carvedilol to 25mg bid on admission Control pain as this may be contributing Troponin elevated at 48.2, flat trended. May be related to elevated BP. Denies chest pain, c/t telemetry monitoring. Use prn BP meds per protocol. Acute on chronic anemia: OP Chart review w/ baseline Hb of 9-10. Admitting hemoglobin of 8.3, dropped to 7.6 on 12/23. Transfuse for symptomatic anemia or hemoglobin less than 7. Iron profile with low iron and low normal ferritin B12/folate. Started supplements. Electrolyte abnormality: Monitor and replete as appropriate. Other chronic medical conditions: HLD, COPD -->> continue with/resume home meds as and when appropriate. DVT prophylaxis: SCDs Re: acute on chronic anemia. CODE STATUS: DNR/DNI 12/23, called and updated patient's daughter Erica. PT/OT, CM to assist w/ dc planning. Admission and Anticipated Discharge Date Admission Date: December 21, 2021 Subjective Patient seen and examined at bedside as a follow-up of weakness, frequent falls, right hip osteoarthritis, left proximal ureteral calculi with mild left hydronephrosis. Patient was sitting up in chair, more awake and alert today, on 4 L nasal cannula oxygen, reports some mid upper belly pain, denies any lower belly pain, reports poor appetite, denies any headache or dizziness, denies any fever or chills, denies any sore throat cough. Per RN, no new acute event overnight, patient with very poor appetite, hence will continue with IV fluid until appetite improves. Also per RN, patient is heavy assist with 2 people. Physical Exam Physical Exam: GENERAL: Alert and awake. NAD, on 4L NC O2 HEENT: No pallor, no icterus. Pupils equal, round and reactive to light. Oral mucosa moist. NECK: No JVD, no neck masses. HEART: S1 and S2 heard. Regular rate and rhythm. No murmur, no gallop. RESPIRATORY SYSTEM: Normal AP diameter. No accessory muscle use. No wheezing, no crackles. ABDOMEN: Soft, bowel sounds present, minimal RLQ tender, no distention. CENTRAL NERVOUS SYSTEM: No facial droop. Speech is clear. Obeys simple commands. Moves extremities. EXTREMITIES: No edema, no erythema seen. Results & Data Results & Data ([facility]) Vital Signs (Past 12 Hours) Vital Signs Temp Pulse Pulse Resp BP Pulse Ox O2 Del Method 12/25/21 15:42 37 C 63 20 156/59 H 98 Nasal Cannula 12/25/21 08:00 60 12/25/21 15:06 63 12/25/21 08:00 Nasal Cannula 12/25/21 11:55 36.8 C 67 20 169/73 H 97 Nasal Cannula 12/25/21 08:36 36.9 C 71 19 182/58 H 96 Nasal Cannula O2 Flow Rate 12/25/21 15:42 3 12/25/21 08:00 12/25/21 15:06 12/25/21 08:00 2 12/25/21 11:55 3 12/25/21 08:36 2
[2021-12-25] MEDS: CALCIUM CARBONATE 500 MG CHEWABLE TAB PO SCH (20:22)
[2021-12-25] MEDS: PANTOprazole 40 MG TAB PO SCH (20:32)
[2021-12-26] MEDS: ACETAMINOPHEN 325 MG TAB PO SCH ×4 (00:58→18:13)
[2021-12-26 07:15] LABS: Hematocrit (blood only) 26.8 % (34.1-44.9); Hemoglobin 8.2 g/dl (12.0-16.0); Mean Corpuscular Hgb Conc 30.6 g/dL (32.0-36.0); Mean Corpuscular Volume 94.7 fL (80.0-100.0); Mean Platelet Volume 9.8 fL (9.4-12.3); Platelet Count 263 K/uL (130-400); RDW Coefficient of Variation 14.3 % (11.5-14.5); RDW Standard Deviation 48.9 fL (36.4-46.3); Red Blood Count 2.83 M/uL (3.93-5.22); White Blood Count 10.57 K/ul (4.8-10.8)
[2021-12-26] MEDS: KETOROLAC TROMETHAMINE 15 MG/ML VIAL IV PRN (07:48)
[2021-12-26] MEDS: ONDANSETRON INJ 2 MG/ML 2 ML VIAL IV PRN ×2 (07:48→15:36)
[2021-12-26] MEDS: TAMSULOSIN HCL 0.4 MG CAP PO SCH (07:49)
[2021-12-26] MEDS: UMECLIDINIUM/VILANTEROL 62.5/25MCG 7 PUFFS/INHALER INH SCH (07:49)
[2021-12-26] MEDS: hydrALAZINE TAB 50 MG TAB PO SCH ×3 (07:49→21:22)
[2021-12-26] MEDS: FOLIC ACID 1 MG TAB PO SCH (07:49)
[2021-12-26] MEDS: FERROUS GLUCONATE 324 MG TAB PO SCH (07:50)
[2021-12-26] MEDS: LORATADINE 10 MG TAB PO SCH (07:50)
[2021-12-26] MEDS: CYANOCOBALAMIN (B-12) 100 MCG TABLET PO SCH (07:50)
[2021-12-26] MEDS: cloNIDine HCL 0.1 MG TAB PO SCH ×2 (07:50→21:24)
[2021-12-26] MEDS: FAMOTIDINE 20 MG TAB PO SCH ×2 (07:50→21:22)
[2021-12-26] MEDS: carvediloL 25 MG TAB PO SCH ×2 (07:51→21:23)
[2021-12-26] MEDS: DULoxetine HCL 30 MG CAP PO SCH (07:51)
[2021-12-26] MEDS: ASPIRIN 81 MG ECTAB PO SCH (07:51)
[2021-12-26] MEDS: LOSARTAN POTASSIUM 50 MG TAB PO SCH (07:51)
[2021-12-26] MEDS: ADVANCED PROBIOTIC 1250 MG CAPSULE PO SCH (07:51)
[2021-12-26] MEDS: CALCIUM CARBONATE 500 MG CHEWABLE TAB PO SCH ×3 (07:51→21:14)
[2021-12-26] MEDS: LOPERAMIDE HCL 2 MG CAP PO PRN ×2 (07:53→18:28)
[2021-12-26 07:59] LABS: BUN Creatinine Ratio 22.9 (10-20); Calcium 9.3 mg/dl (8.5-10.1); Creatinine Clr Calc Pharmacy 30.5 ml/min; Est GFR (African American) 37.6 ml/min; Est GFR (Non-African American) 32.5 ml/min; Phosphorus 2.2 mg/dl (2.5-4.9); Potassium 3.8 mmol/L (3.5-5.1)
[2021-12-26] MEDS ORDERED: POTASSIUM PHOS 3 MMOL/1 ML INFUSION IV STA (08:55)
[2021-12-26] MEDS ORDERED: POTASSIUM PHOSPHATE 15 MMOL in SODIUM CHLORIDE 0.9% 250 ML IV ONE (09:15)
--- NOTE | 2021-12-26 14:38 | Consultation ---
Date of Consultation December 26, 2021 History of Present Illness Attending Physician: Toshia Weston MD History of Present Illness Consult request to follow up CT done 5 days ago for pancreatic cyst. CT was done without IV contrast, showed 4.1 cm cystic lesion panc body. Please obtain panc protocol CT with IV contrast prior to discharge if creatinine allows. Allergies Allergy/AdvReac Type Severity Reaction Status Date / Time amlodipine Allergy Unknown PT'S LIST Verified 12/21/21 16:08 cefuroxime Allergy Unknown PT'S LIST Verified 12/21/21 16:08 Cephalosporins Allergy Unknown PT'S LIST Verified 12/21/21 16:08 ciprofloxacin Allergy Unknown PT'S LIST Verified 12/21/21 16:08 erythromycin base Allergy Unknown PT'S LIST Verified 12/21/21 16:08 Home Medications Medication Instructions Recorded Confirmed Type acetaminophen 300 mg-codeine 30 mg 1 tab PO Q6H PRN Moderate Pain 12/21/21 1 History tablet (Scale Score 5-6) albuterol sulfate 2.5 mg/3 mL 2.5 mg inhalation Q4H PRN 12/21/21 12/21/21 History (0.083 %) solution for nebulization Shortness Of Breath albuterol sulfate 90 mcg/actuation 2 puff inhalation DIRECTED PRN 12/21/21 12/21/21 History aerosol inhaler Shortness Of Breath alprazolam 0.5 mg tablet (Xanax) 0.5 mg PO BID PRN Sleep 12/21/21 12/21/21 History aspirin 81 mg tablet 81 mg PO DAILY 12/21/21 12/21/21 History carvedilol 12.5 mg tablet (Coreg) 12.5 mg PO BID 12/21/21 12/21/21 History clonidine HCl 0.2 mg tablet 0.2 mg PO BID 12/21/21 12/21/21 History ergocalciferol (vitamin D2) 1,250 1,250 mcg PO WK 12/21/21 12/21/21 History mcg (50,000 unit) capsule (Vitamin D2) hydralazine 100 mg tablet 100 mg PO TID 12/21/21 12/21/21 History loratadine 10 mg tablet (Claritin) 10 mg PO DAILY 12/21/21 12/21/21 History losartan 50 mg tablet 50 mg PO DAILY 12/21/21 12/21/21 History mirtazapine 30 mg tablet (Remeron) 30 mg PO HS 12/21/21 12/21/21 History pantoprazole 40 mg tablet,delayed 40 mg PO HS 12/21/21 12/21/21 History release (Protonix) umeclidinium 62.5 mcg-vilanterol 1 inh inhalation DAILY 12/21/21 12/21/21 History 25 mcg/actuation powdr for inhalation (Anoro Ellipta) Patient History Medical History COPD (chronic obstructive pulmonary disease) Degenerative joint disease of right hip Fracture of right hip HLD (hyperlipidemia) HTN (hypertension) No pertinent family history Rhabdomyolysis Surgical History History of hip surgery History of removal of ovarian cyst Hx of appendectomy Hx of hernia repair Hx of hysterectomy Family History Mother Coronary heart disease Father Coronary heart disease Brother Diabetes Brother Coronary heart disease Other Heart disease Hypertension Social History Smoking Status: Former smoker Second Hand Exposure: No; Do You Dip or Chew Tobacco: No; Tobacco Cessation Education Requested by Patient: No Hx Alcohol Use: No Hx Substance Use: No Preferred Language: [place]an Communication Ability: Effective Breakfast Manager Required: No Beliefs That Will Affect Care: None marital status: / Current Living Situation: Family How many Children do You have: 2 Feels Safe at Home: Yes Safety Concerns: Feels Safe At This Time Assistive Devices: Bedside Commode, Oxygen - Continuous, Stair Lift, Walker and Wheelchair Results & Data ([facility]) Vital Signs (Past 12 Hours) Vital Signs Temp Pulse Pulse Resp BP Pulse Ox O2 Del Method 12/26/21 08:00 66 12/26/21 11:04 37.0 C 60 18 138/69 98 Nasal Cannula 12/26/21 07:49 36.6 C 66 18 166/66 H 98 Nasal Cannula 12/26/21 02:55 36.5 C 67 20 158/52 H 96 Nasal Cannula O2 Flow Rate 12/26/21 08:00 12/26/21 11:04 4 12/26/21 07:49 4 12/26/21 02:55 4
--- NOTE | 2021-12-26 16:22 | Hospitalist Progress Note ---
Date of Service December 26, 2021 Assessment & Plan (1) Hydronephrosis concurrent with and due to calculi of kidney and ureter: Plan 76 yo F with PMhx of HTN, HLD, COPD, Degenerative joint disease of right hip who presented 12/21 with repeated falls, weakness and generalized pain. She was recently admitted to [facility] for NANCY/rhabdomyolysis and falls from Dec 01- and was discharged home with health services.She is being managed for the following: Admitting imagings: CXR with cardiomegaly and without pulmonary edema. Trace pleural effusion with lateral right lung base opacities suggestive of atelectasis/scaring. CT head: No acute findings. C-spine CT: No acute findings. CTAP: Obstructing calculus/cluster of calculi in the left proximal ureter measuring up to 16 mm in length and causes mild left hydronephrosis. Nonobstructing calculi in the right kidney. Also there is pathologically indeterminant 4.1 cm ovoid cystic lesion in the distal pancreatic body which contains internal calcification/debris's. Nonemergent follow-up with GI for possible endoscopic ultrasound is recommended. Pelvic x-ray with moderate right hip osteoarthritis without acute fracture or dislocation. Left hip total joint arthroplasty with chronic revision changes noted. Renal calculi Left mild hydronephrosis Last CT from 12/01/2021 with only 3 mm right nonobstructing nephrolithiasis. Admitting CTAP: see above. On exam, pt w/ no left belly pain. Current abd pain on RLQ, not related to side with obstructive stone on CT. Admitting UA no s/o infection. Pt afebrile, c/w flomax, strain all urine, c/w pain management. Pt drowsy and sleepy likely 2/2 pain meds use, will cut down on opiates pain meds --> Tylenol scheduled, Tylenol 3 discontinued, hydromorphone every 8 hours as needed for severe pain, Toradol as needed for moderate pain, tramadol for mild to moderate pain as needed. Baseline creatinine around 1.6 upon outpatient chart review. Uro on board, status post cystoscopy and bilateral stent placement 12/24/2021. Patient will need outpatient follow-up with urology. Abdominal pain/nausea/poor appetite: Patient has been having this abdominal pain and nausea since 1 month per patient's daughter, patient had poor appetite since then. At baseline patient is not a great eater though. Patient does have a history of pancreatic cyst which has been stable for 30+ years per patient's d izzy. Admitting CTAP with cyst [see above]. Patient does not drink alcohol. GI has been consulted, await recommendation. Plan to proceed with tube feeding after GI evaluation and w/ no improvement in PO intake, discussed with patient and her daughter at bedside today. Weakness: Frequent falls: Rt hip OA CT abd noted age indeterminate impacted right femoral fracture but Pelvic XR w/ no fracture but has Rt hip moderate OA Ortho evaled, no Ix for now. f/u [facility] orth[facility] in 2 weeks. Pt uses a walker and wheelchair at home. PDMP reviewed. Patient has been on tylenol 3 and alprazolam for sometime. This may be contributing to falls too. PT/OT eval Fall precautions Cautious use of Xanax Pancreatic cyst: as in admitting CTAP. F/u w/ GI as OP. Elevated troponin: Hypertensive urgency: HTN (hypertension): BP 220/80-90 on admission Pt is compliant with medications at home per report, daughter is RN and manages her medications. Takes clonidine 0.2 mg BID, losartan 50 mg daily, carvedilol 12.5 mg BID, hydralazine 100 mg TID Losartan was increased to 100mg daily and carvedilol to 25mg bid on admission Control pain as this may be contributing Troponin elevated at 48.2, flat trended. May be related to elevated BP. Denies chest pain, c/t telemetry monitoring. Use prn BP meds per protocol. Acute on chronic anemia: OP Chart review w/ baseline Hb of 9-10. Admitting hemoglobin of 8.3, dropped to 7.6 on 12/23. Transfuse for symptomatic anemia or hemoglobin less than 7. Iron profile with low iron and low normal ferritin B12/folate. Started supplements. P.o. iron tablet on hold, will use Venofer given nausea and poor appetite. Electrolyte abnormality: Monitor and replete as appropriate. Other chronic medical conditions: HLD, COPD -->> continue with/resume home meds as and when appropriate. DVT prophylaxis: SCDs Re: acute on chronic anemia. CODE STATUS: DNR/DNI 12/23, called and updated patient's daughter Eriac. 12/26 updated dtr at bedside. PT/OT, CM to assist w/ dc planning. Admission and Anticipated Discharge Date Admission Date: December 21, 2021 Subjective Patient seen and examined at bedside as a follow-up of weakness, frequent falls, right hip osteoarthritis, left proximal ureteral calculi with mild left hydronephrosis. Patient was sitting up in chair, more awake and alert today, on 4 L nasal cannula oxygen, reports some mid upper belly pain, reports poor appetite, denies any headache or dizziness, denies any fever or chills, denies any sore throat cough. Per RN, no new acute event overnight, patient with very poor appetite, hence will continue with IV fluid until appetite improves. Also per RN, patient is heavy assist with 2 people. Patient's daughter was seen at bedside at another time besides rounding, we discussed about tube feeding if patient is not willing to eat p.o., both patient and her daughter seemed agreeable, we plan to proceed with tube feeding after GI evaluation. Physical Exam Physical Exam: GENERAL: Alert and awake. NAD, on 4L NC O2 HEENT: No pallor, no icterus. Pupils equal, round and reactive to light. Oral mucosa moist. NECK: No JVD, no neck masses. HEART: S1 and S2 heard. Regular rate and rhythm. No murmur, no gallop. RESPIRATORY SYSTEM: Normal AP diameter. No accessory muscle use. No wheezing, no crackles. ABDOMEN: Soft, bowel sounds present, minimal lower belly tender, no distention. CENTRAL NERVOUS SYSTEM: No facial droop. Speech is clear. Obeys simple commands. Moves extremities. EXTREMITIES: No edema, no erythema seen. Results & Data Results & Data ([facility]) Vital Signs (Past 12 Hours) Vital Signs Temp Pulse Pulse Resp BP Pulse Ox Pulse Ox 12/26/21 16:00 65 12/26/21 15:56 37.0 C 68 18 166/69 H 95 12/26/21 08:00 12/26/21 08:00 97 12/26/21 08:00 66 12/26/21 11:04 37.0 C 60 18 138/69 98 12/26/21 07:49 36.6 C 66 18 166/66 H 98 O2 Del Method O2 Del Method O2 Flow Rate O2 Flow Rate 12/26/21 16:00 12/26/21 15:56 Nasal Cannula 3 12/26/21 08:00 Nasal Cannula 3 12/26/21 08:00 Nasal Cannula 3 12/26/21 08:00 12/26/21 11:04 Nasal Cannula 4 12/26/21 07:49 Nasal Cannula 4
[2021-12-26] MEDS ORDERED: IRON SUCROSE 200 MG in 0.9 % SODIUM CHLORIDE 100 ML IV ONE (16:30)
[2021-12-26] MEDS: D5W AND NSS 1,000 ML IV SCH (18:13)
[2021-12-26] MEDS: ERGOCALCIFEROL 50,000 UNITS 1250 MCG CAP PO SCH (21:22)
[2021-12-26] MEDS: PANTOprazole 40 MG TAB PO SCH (21:23)
[2021-12-27] MEDS ORDERED: ALPRAZolam 0.25 MG TABLET PO STA (00:58)
[2021-12-27] MEDS: ACETAMINOPHEN 325 MG TAB PO SCH ×4 (01:02→17:46)
[2021-12-27] MEDS: UMECLIDINIUM/VILANTEROL 62.5/25MCG 7 PUFFS/INHALER INH SCH (08:57)
[2021-12-27] MEDS: FOLIC ACID 1 MG TAB PO SCH (08:57)
[2021-12-27] MEDS: LORATADINE 10 MG TAB PO SCH (08:57)
[2021-12-27] MEDS: D5W AND NSS 1,000 ML IV SCH (08:57)
[2021-12-27] MEDS: TAMSULOSIN HCL 0.4 MG CAP PO SCH (08:57)
[2021-12-27 08:58] LABS: Hematocrit (blood only) 31.3 % (34.1-44.9); Hemoglobin 9.5 g/dl (12.0-16.0); Mean Corpuscular Hgb Conc 30.4 g/dL (32.0-36.0); Mean Corpuscular Volume 95.4 fL (80.0-100.0); Mean Platelet Volume 9.8 fL (9.4-12.3); Platelet Count 338 K/uL (130-400); RDW Coefficient of Variation 14.3 % (11.5-14.5); RDW Standard Deviation 50.4 fL (36.4-46.3); Red Blood Count 3.28 M/uL (3.93-5.22); White Blood Count 14.23 K/ul (4.8-10.8)
[2021-12-27] MEDS: cloNIDine HCL 0.1 MG TAB PO SCH ×2 (08:58→23:05)
[2021-12-27] MEDS: DULoxetine HCL 30 MG CAP PO SCH (08:58)
[2021-12-27] MEDS: LOSARTAN POTASSIUM 50 MG TAB PO SCH (08:58)
[2021-12-27] MEDS: ASPIRIN 81 MG ECTAB PO SCH (08:58)
[2021-12-27] MEDS: CYANOCOBALAMIN (B-12) 100 MCG TABLET PO SCH (08:58)
[2021-12-27] MEDS: hydrALAZINE TAB 50 MG TAB PO SCH ×3 (08:58→23:05)
[2021-12-27] MEDS: carvediloL 25 MG TAB PO SCH ×2 (08:58→23:05)
[2021-12-27] MEDS: FAMOTIDINE 20 MG TAB PO SCH (08:59)
[2021-12-27] MEDS: ADVANCED PROBIOTIC 1250 MG CAPSULE PO SCH (08:59)
[2021-12-27] MEDS: CALCIUM CARBONATE 500 MG CHEWABLE TAB PO SCH ×2 (09:01→16:01)
[2021-12-27] MEDS: ONDANSETRON INJ 2 MG/ML 2 ML VIAL IV PRN ×2 (09:04→16:24)
[2021-12-27] MEDS: LOPERAMIDE HCL 2 MG CAP PO PRN ×2 (09:04→16:13)
[2021-12-27 09:23] LABS: Calcium 9.2 mg/dl (8.5-10.1); Creatinine Clr Calc Pharmacy 30.4 ml/min; Phosphorus 2.3 mg/dl (2.5-4.9); Potassium 4.2 mmol/L (3.5-5.1)
--- NOTE | 2021-12-27 12:18 | Gastroenterology Progress Note ---
Date of Service December 27, 2021 Assessment & Plan (1) Abdominal pain: Plan: Abdominal pain and poor appetite may be secondary to ureteral stone/procedure to stent. ALso considered is C-diff as she is C-diff gene (+), toxin (-) and the nurse tells us that she has had a few loose/liquid BMs thus far today. Plan Will empirically tx for C-diff w vancomycin. Admission and Anticipated Discharge Date Admission Date: December 21, 2021 Supervising Physician Co-Signing Physician Notes I performed a history and physical examination of the patient today, including specifically on physical exam - soft abdomen. I have discussed the patient's management with the advanced practitioner. Please refer to the nurse practitioner's note for the documented findings and plan of care. Obtain stool cultures, treat with PO Vanc for now. PPI and Bentyl as needed. Endoscopic work up electively as OP including EUS to evaluate the pancreas cyst. Recall GI if needed. Subjective 76 yr old female COPD, HTN admitted 12/21 for falls, weakness. Imaging with ureteral stone and hydronephrosis. GI consulted 12/26 for IPMN, Abd pain. Nursing tells us pt also w diarrhea and poor po intake. Ureteral stent placed 12/21. WBC today 14. Pt reports abd pain, no specific location. Review of Systems Constitutional: + weakness and + anorexia; no fever, no chills and no sweats Ear, Nose, Mouth, Throat: denies nasal congestion, runny nose, sore throat or facial pain Respiratory: no cough, no dyspnea and no wheezing Cardiovascular: + edema (slight, bilat lower legs); no chest pain Gastrointestinal: as per Subjective / HPI Genitourinary: + problem reported (ureteral stones, stent placed) Integumentary: no rash and no lesions Neurologic: + generalized weakness Psychiatric: no irritability and no anxiety Endocrine: + fatigue Physical Exam Constitutional: + ill appearing (chronically), + obese and cooperative; no acute distress Eyes: PERRL, conjunctivae normal, anicteric sclerae ENMT: external ear and nose normal, oropharynx normal Neck: trachea midline, no thyromegaly Respiratory: normal respiratory effort, lungs clear to auscultation Cardiovascular: RRR, no murmur, no edema Gastrointestinal (Abdomen): Inspection/Auscultation: abdomen normal to inspection and normal bowel sounds; abdomen not distended mild, diffuse tenderness throughout. Skin: no rashes, warm and dry Neurologic: PERRL, EOMI, accommodation nl, no face palsy, no dysarthria Lymphatic: no cervical or axillary lymphadenopathy Results & Data ([facility]) Vital Signs (Past 12 Hours) Vital Signs Temp Pulse Pulse Resp BP Pulse Ox O2 Del Method 12/27/21 12:03 36.4 C L 70 18 137/52 L 96 12/27/21 07:52 36.6 C 67 20 199/65 H 97 12/27/21 02:33 37.2 C 66 20 155/65 H 96 Nasal Cannula 12/27/21 03:07 64 O2 Flow Rate 12/27/21 12:03 12/27/21 07:52 2 12/27/21 02:33 2 12/27/21 03:07 Laboratory Results WBC 14, Hb 9.5, HCT 31.3, PLT 338, NA 142, CL 21, BUN 23, CR 1.47, glucose 143. Diagnostic Findings Non contrast CTAP 12/21/21: Liver: The unenhanced liver is normal in size, contour, and attenuation. There is no intrahepatic biliary ductal dilatation. Gallbladder: Unremarkable. Spleen: Normal in size and attenuation. Pancreas: There is a 4.1 cm ovoid cystic lesion in the pancreatic body is seen on image #121. This contains internal calcification/debris. The pancreatic tail appears atrophic. The unenhanced pancreas proximal pancreas is moderately atrophic and otherwise grossly unremarkable. Adrenal glands: Unremarkable. Kidneys: The unenhanced kidneys are atrophic. There is an obstructing calculus/cluster of calculi within the left proximal ureter at the level of L4. This is best seen on axial image #212 and extends approximately 16 mm in length. This causes mild left hydronephrosis. No additional left renal calculi are identified. Numerous nonobstructing right renal calculi measuring up to 14 mm. There is no right ureteral stone or hydronephrosis. There is no evidence of contour deforming renal mass lesion. Abdominal vasculature: The abdominal aorta is normal in course and caliber noting advanced atherosclerotic calcification. Bowel: There is moderate colonic diverticulosis without CT evidence of acute diverticulitis. No bowel obstruction is seen. Submucosal fat deposition is seen throughout the right colon. This is a nonspecific finding but has been described in the setting of chronic inflammation. The appendix is not identified and reported surgically absent.
[2021-12-27] MEDS: VANCOMYCIN HCL 125 MG/2.5ML SOLN PO SCH (16:15)
[2021-12-27] MEDS: RASPBERRY SYRUP 5 ML UDP PO SCH (16:15)
[2021-12-27] MEDS ORDERED: SODIUM PHOSPHATE 3 MMOL/1 ML INFUSION IV STA (17:02)
[2021-12-27] MEDS ORDERED: IRON SUCROSE 200 MG in 0.9 % SODIUM CHLORIDE 100 ML IV ONE (17:10)
--- NOTE | 2021-12-27 17:12 | Hospitalist Progress Note ---
Date of Service December 27, 2021 Assessment & Plan (1) Hydronephrosis concurrent with and due to calculi of kidney and ureter: Plan 76 yo F with PMhx of HTN, HLD, COPD, Degenerative joint disease of right hip who presented 12/21 with repeated falls, weakness and generalized pain. She was recently admitted to [facility] for NANCY/rhabdomyolysis and falls from Dec 01- and was discharged home with health services.She is being managed for the following: Admitting imagings: CXR with cardiomegaly and without pulmonary edema. Trace pleural effusion with lateral right lung base opacities suggestive of atelectasis/scaring. CT head: No acute findings. C-spine CT: No acute findings. CTAP: Obstructing calculus/cluster of calculi in the left proximal ureter measuring up to 16 mm in length and causes mild left hydronephrosis. Nonobstructing calculi in the right kidney. Also there is pathologically indeterminant 4.1 cm ovoid cystic lesion in the distal pancreatic body which contains internal calcification/debris's. Nonemergent follow-up with GI for possible endoscopic ultrasound is recommended. Pelvic x-ray with moderate right hip osteoarthritis without acute fracture or dislocation. Left hip total joint arthroplasty with chronic revision changes noted. Renal calculi Left mild hydronephrosis Last CT from 12/01/2021 with only 3 mm right nonobstructing nephrolithiasis. Admitting CTAP: see above. On exam, pt w/ no left belly pain. Current abd pain on RLQ, not related to side with obstructive stone on CT. Admitting UA no s/o infection. Pt afebrile, c/w flomax, strain all urine, c/w pain management. Pt drowsy and sleepy likely 2/2 pain meds use, will cut down on opiates pain meds --> Tylenol scheduled, Tylenol 3 discontinued, hydromorphone every 8 hours as needed for severe pain, tramadol for mild to moderate pain as needed. Baseline creatinine around 1.6 upon outpatient chart review. Uro evaluated, status post cystoscopy and bilateral stent placement 12/24/2021. Patient will need outpatient follow-up with urology. Abdominal pain/nausea/poor appetite: Patient has been having this abdominal pain and nausea since 1 month per patient's daughter, patient had poor appetite since then. At baseline patient is not a great eater though. 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 Admitting CTAP with cyst [see above]. Patient does not drink alcohol. GI has been consulted, started PO vanco for possible C diff, patient does have loose stool, c diff gene positive but toxin negative. Will continue to monitor. Today, patient stated that she wouldn't want any kind of tube feeding/neither PEG tube nor Nasogastric tube. Weakness: Frequent falls: Rt hip OA CT abd noted age indeterminate impacted right femoral fracture but Pelvic XR w/ no fracture but has Rt hip moderate OA Ortho evaled, no Ix for now. f/u [facility] ortho in 2 weeks. Pt uses a walker and wheelchair at home. PDMP reviewed. Patient has been on tylenol 3 and alprazolam for sometime. This may be contributing to falls too. PT/OT eval Fall precautions Cautious use of Xanax Pancreatic cyst: as in admitting CTAP. F/u w/ GI as OP. Elevated troponin: Hypertensive urgency: HTN (hypertension): BP 220/80-90 on admission Pt is compliant with medications at home per report, daughter is RN and manages her medications. Takes clonidine 0.2 mg BID, losartan 50 mg daily, carvedilol 12.5 mg BID, hydralazine 100 mg TID Losartan was increased to 100mg daily and carvedilol to 25mg bid on admission Control pain as this may be contributing Troponin elevated at 48.2, flat trended. May be related to elevated BP. Denies chest pain, c/t telemetry monitoring. Use prn BP meds per protocol. Acute on chronic anemia: OP Chart review w/ baseline Hb of 9-10. Admitting hemoglobin of 8.3, dropped to 7.6 on 12/23. Transfuse for symptomatic anemia or hemoglobin less than 7. Iron profile with low iron and low normal ferritin B12/folate. Started supplements. P.o. iron tablet on hold, will use Venofer given nausea and poor appetite. Electrolyte abnormality: Monitor and replete as appropriate. Other chronic medical conditions: HLD, COPD -->> continue with/resume home meds as and when appropriate. DVT prophylaxis: SCDs Re: acute on chronic anemia. CODE STATUS: DNR/DNI 12/23, called and updated patient's daughter Erica. 12/26 updated dtr at bedside. PT/OT, CM to assist w/ dc planning. Pt not ready for DC. Admission and Anticipated Discharge Date Admission Date: December 21, 2021 Subjective Patient seen and examined at bedside as a follow-up of weakness, frequent falls, right hip osteoarthritis, left proximal ureteral calculi with mild left hydronephrosis. Patient was lying semiupright in bed, awake and alert, on 3 L nasal cannula oxygen, reports nonspecific belly pain, cannot localize, reports poor appetite, denies any headache or dizziness, denies any fever or chills, denies any sore throat or cough. Per RN, no new acute event overnight, patient with very poor appetite, hence will continue with IV fluid until appetite improves. Also per RN, patient is heavy assist with 2 people. Physical Exam Physical Exam: GENERAL: Alert and awake. NAD, on 3L NC O2. Appears ill/frail/weak. HEENT: No pallor, no icterus. Pupils equal, round and reactive to light. Oral mucosa moist. NECK: No JVD, no neck masses. HEART: S1 and S2 heard. Regular rate and rhythm. No murmur, no gallop. RESPIRATORY SYSTEM: Normal AP diameter. No accessory muscle use. No wheezing, no crackles. ABDOMEN: Soft, bowel sounds present, minimal diffuse belly tenderness, no distention. CENTRAL NERVOUS SYSTEM: No facial droop. Speech is clear. Obeys simple commands. Moves extremities. EXTREMITIES: No edema, no erythema seen. Results & Data Results & Data ([facility]) Vital Signs (Past 12 Hours) Vital Signs Temp Pulse Resp BP Pulse Ox O2 Del Method O2 Flow Rate 12/27/21 08:00 Nasal Cannula 3 12/27/21 11:00 75 161/53 H 12/27/21 16:15 37.0 C 67 20 180/60 H 97 Nasal Cannula 3 12/27/21 12:03 36.4 C L 70 18 137/52 L 96 12/27/21 07:52 36.6 C 67 20 199/65 H 97 2
[2021-12-27] MEDS ORDERED: SODIUM PHOSPHATE 15 MMOL in SODIUM CHLORIDE 0.9% 250 ML IV ONE (17:15)
[2021-12-27] MEDS ORDERED: POTASSIUM PHOSPHATE 15 MMOL in SODIUM CHLORIDE 0.9% 250 ML IV ONE (17:15)
[2021-12-27] MEDS ORDERED: FAMOTIDINE 10 MG TABLET PO SCH (21:00)
[2021-12-27] MEDS: PANTOprazole 40 MG TAB PO SCH (23:05)
[2021-12-27] MEDS: ALPRAZolam 0.5 MG TABLET PO PRN (23:12)
[2021-12-28] MEDS: ACETAMINOPHEN 325 MG TAB PO SCH ×5 (00:56→23:56)
[2021-12-28] MEDS: RASPBERRY SYRUP 5 ML UDP PO SCH ×5 (00:57→23:55)
[2021-12-28] MEDS: VANCOMYCIN HCL 125 MG/2.5ML SOLN PO SCH ×5 (00:57→23:55)
[2021-12-28] MEDS: D5W AND NSS 1,000 ML IV SCH (05:58)
[2021-12-28] MEDS: CYANOCOBALAMIN (B-12) 100 MCG TABLET PO SCH (07:54)
[2021-12-28] MEDS: FOLIC ACID 1 MG TAB PO SCH (07:54)
[2021-12-28] MEDS: hydrALAZINE TAB 50 MG TAB PO SCH ×3 (07:55→20:29)
[2021-12-28] MEDS: TAMSULOSIN HCL 0.4 MG CAP PO SCH (07:55)
[2021-12-28] MEDS: carvediloL 25 MG TAB PO SCH ×2 (07:55→20:29)
[2021-12-28] MEDS: ASPIRIN 81 MG ECTAB PO SCH (07:55)
[2021-12-28] MEDS: ADVANCED PROBIOTIC 1250 MG CAPSULE PO SCH (07:55)
[2021-12-28] MEDS: LOSARTAN POTASSIUM 50 MG TAB PO SCH (07:55)
[2021-12-28] MEDS: DULoxetine HCL 30 MG CAP PO SCH (07:56)
[2021-12-28] MEDS: LORATADINE 10 MG TAB PO SCH (07:56)
[2021-12-28] MEDS: cloNIDine HCL 0.1 MG TAB PO SCH ×2 (07:56→20:30)
[2021-12-28] MEDS: UMECLIDINIUM/VILANTEROL 62.5/25MCG 7 PUFFS/INHALER INH SCH (07:58)
[2021-12-28 08:13] LABS: Hematocrit (blood only) 27.7 % (34.1-44.9); Hemoglobin 8.4 g/dl (12.0-16.0); Mean Corpuscular Hemoglobin 29.2 pg (25.0-34.0); Mean Corpuscular Hgb Conc 30.3 g/dL (32.0-36.0); Mean Corpuscular Volume 96.2 fL (80.0-100.0); Mean Platelet Volume 9.7 fL (9.4-12.3); Platelet Count 304 K/uL (130-400); RDW Coefficient of Variation 14.2 % (11.5-14.5); RDW Standard Deviation 50.4 fL (36.4-46.3); Red Blood Count 2.88 M/uL (3.93-5.22); White Blood Count 11.15 K/ul (4.8-10.8)
[2021-12-28 08:54] LABS: BUN Creatinine Ratio 20.4 (10-20); Calcium 8.6 mg/dl (8.5-10.1); Est GFR (African American) 37.9 ml/min; Est GFR (Non-African American) 32.7 ml/min; Magnesium 1.8 mg/dl (1.7-2.4); Phosphorus 3.1 mg/dl (2.5-4.9); Potassium 4.1 mmol/L (3.5-5.1)
[2021-12-28] MEDS ORDERED: D5W AND 1/2NSS 1,000 ML IV SCH (09:00)
--- NOTE | 2021-12-28 13:26 | Gastroenterology Progress Note ---
Date of Service December 28, 2021 Assessment & Plan (1) Abdominal pain: Plan: Abdominal pain and poor appetite may be secondary to C-diff or ureteral stone/procedure. She is improved on Vanco po. Plan Complete a 10 day course of vancomycin. Discussed need to eat more calories, mentioned PEG tube and pt tells me she is not willing. GI will watch peripherally. Please notify us of new/ worsening GI issues. Our office will be contacting her to arrange OP EUS for pancreas cyst. Admission and Anticipated Discharge Date Admission Date: December 21, 2021 Supervising Physician Co-Signing Physician Notes I performed a history and physical examination of the patient today, including specifically on physical exam - soft abdomen. I have discussed the patient's management with the advanced practitioner. Please refer to the nurse practitioner's note for the documented findings and plan of care. Subjective 76 yr old female admitted 12/21 for falls, imaging w ureteral stone and hydronephrosis. Today feels better than yesterday, though reports, still not eating much. I was able to assess one of her BMs, loose, brown, some mucous, small volume. 2-3 BMs a day are being documented by nursing. Today reports that the abdomen hurts only if it is pressed on, not bothering her at other times. PO vanco was started yesterday for empiric tx of C-diff (Gene(+), toxin (-). Review of Systems Constitutional: + weakness and + anorexia; no fever, no chills and no sweats Ear, Nose, Mouth, Throat: denies nasal congestion, runny nose, sore throat or facial pain Respiratory: no cough, no dyspnea and no wheezing Cardiovascular: + edema (slight, bilat lower legs); no chest pain Gastrointestinal: as per Subjective / HPI Genitourinary: + problem reported (ureteral stones, stent placed) Integumentary: no rash and no lesions Psychiatric: no irritability and no anxiety Endocrine: + fatigue Physical Exam Constitutional: + ill appearing (chronically), + obese and cooperative; no acute distress Eyes: PERRL, conjunctivae normal, anicteric sclerae ENMT: external ear and nose normal, oropharynx normal Neck: trachea midline, no thyromegaly Respiratory: normal respiratory effort, lungs clear to auscultation Cardiovascular: RRR, no murmur, no edema Gastrointestinal (Abdomen): Inspection/Auscultation: abdomen normal to inspection and normal bowel sounds; abdomen not distended Percussion/ Palpation: + abdomen tender (mild, diffuse tenderness) Skin: no rashes, warm and dry Neurologic: PERRL, EOMI, accommodation nl, no face palsy, no dysarthria Lymphatic: no cervical or axillary lymphadenopathy Results & Data ([facility]) Vital Signs (Past 12 Hours) Vital Signs Temp Pulse Pulse Resp BP BP Pulse Ox 12/28/21 08:00 12/28/21 11:31 36.9 C 61 20 156/68 H 95 12/28/21 08:08 36.9 C 69 20 174/61 H 98 12/28/21 07:25 66 12/28/21 03:39 36.4 C L 65 18 157/60 H 97 O2 Del Method O2 Flow Rate 12/28/21 08:00 3 12/28/21 11:31 Nasal Cannula 2 12/28/21 08:08 Nasal Cannula 3 12/28/21 07:25 12/28/21 03:39 Nasal Cannula 2 Laboratory Results WBC 11.5, Hb 8.4, Hct 27.7, plts 304, INR 1.1 on 12/21, Na 146, K 3.4, Cl 109, CO2 26, BUN 13, Cr 0.43, glucose 100. Diagnostic Findings non contrast 10..22 CTAP: 1. There is an obstructing calculus/cluster of calculi in the left proximal ureter as above. This measures up to 16 mm in length and causes mild left hydronephrosis. 2. Additional nonobstructing calculi are seen in the right kidney. 3. There is no evidence of solid organ injury in the abdomen or pelvis on this unenhanced examination. 4. There is an age indeterminant impacted fracture of the subcapital right femur which may be chronic. Correlate with clinical findings. 5. Small pleural effusions. 6. There is a pathologically indeterminant 4.1 cm ovoid cystic lesion in the distal pancreatic body. This contains internal calcification/debris. Nonemergent follow-up with GI for possible endoscopic ultrasound is recommended. 7. Colonic diverticulosis without CT evidence of acute diverticulitis. 8. Additional findings as above.
--- NOTE | 2021-12-28 16:02 | Hospitalist Progress Note ---
Date of Service December 28, 2021 Assessment & Plan (1) Hydronephrosis concurrent with and due to calculi of kidney and ureter: Plan 76 yo F with PMhx of HTN, HLD, COPD, Degenerative joint disease of right hip who presented 12/21 with repeated falls, weakness and generalized pain. She was recently admitted to [facility] for NANCY/rhabdomyolysis and falls from Dec 01- and was discharged home with health services.She is being managed for the following: Admitting imagings: CXR with cardiomegaly and without pulmonary edema. Trace pleural effusion with lateral right lung base opacities suggestive of atelectasis/scaring. CT head: No acute findings. C-spine CT: No acute findings. CTAP: Obstructing calculus/cluster of calculi in the left proximal ureter measuring up to 16 mm in length and causes mild left hydronephrosis. Nonobstructing calculi in the right kidney. Also there is pathologically indeterminant 4.1 cm ovoid cystic lesion in the distal pancreatic body which contains internal calcification/debris's. Nonemergent follow-up with GI for possible endoscopic ultrasound is recommended. Pelvic x-ray with moderate right hip osteoarthritis without acute fracture or dislocation. Left hip total joint arthroplasty with chronic revision changes noted. Renal calculi Left mild hydronephrosis Last CT from 12/01/2021 with only 3 mm right nonobstructing nephrolithiasis. Admitting CTAP: see above. Admitting UA no s/o infection. Pt afebrile, c/w flomax, strain all urine, c/w pain management. Pt drowsy and sleepy likely 2/2 pain meds use, will cut down on opiates pain meds --> Tylenol scheduled, Tylenol 3 discontinued, hydromorphone every 8 hours as needed for severe pain, tramadol for mild to moderate pain as needed. Baseline creatinine around 1.6 upon outpatient chart review. Uro evaluated, status post cystoscopy and bilateral stent placement 12/24/2021. Patient will need outpatient follow-up with urology. Abdominal pain/nausea/poor appetite: Patient has been having this abdominal pain and nausea since 1 month [employer] per patient's daughter, patient had poor appetite since then. At baseline patient is not a great eater though. 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 Admitting CTAP with cyst [see above]. Patient does not drink alcohol. GI has been consulted, started PO vanco for possible C diff 12/27, patient does have loose stool, c diff gene positive but toxin negative. Will continue to monitor. Loperamide on hold. Pt ate some today, still with poor appetite, will hold IVF for concerns of fluid overload, assess in AM for fluid need if PO intake remains poor. Patient wouldn't want any kind of tube feeding/neither PEG tube nor Nasogastric tube. Weakness: Frequent falls: Rt hip OA CT abd noted age indeterminate impacted right femoral fracture but Pelvic XR w/ no fracture but has Rt hip moderate OA Ortho evaled, no Ix for now. f/u [facility] ortho in 2 weeks. Pt uses a walker and wheelchair at home. PDMP reviewed. Patient has been on tylenol 3 and alprazolam for sometime. This may be contributing to falls too. PT/OT eval Fall precautions Cautious use of Xanax Pt RN, pt is now min to mod assist from 2 person assist few days ago. Pancreatic cyst: as in admitting CTAP. F/u w/ GI as OP. Elevated troponin: Hypertensive urgency: HTN (hypertension): BP 220/80-90 on admission Pt is compliant with medications at home per report, daughter is RN and manages her medications. Takes clonidine 0.2 mg BID, losartan 50 mg daily, carvedilol 12.5 mg BID, hydralazine 100 mg TID Losartan was increased to 100mg daily and carvedilol to 25mg bid on admission Control pain as this may be contributing Troponin elevated at 48.2, flat trended. May be related to elevated BP. Denies chest pain, c/t telemetry monitoring. Use prn BP meds per protocol. Acute on chronic anemia: OP Chart review w/ baseline Hb of 9-10. Admitting hemoglobin of 8.3, dropped to 7.6 on 12/23. Transfuse for symptomatic anemia or hemoglobin less than 7. Iron profile with low iron and low normal ferritin B12/folate. Started supplements. P.o. iron tablet on hold, will use Venofer given nausea and poor appetite. Can resume PO iron once appetite improves. Electrolyte abnormality: Monitor and replete as appropriate. Other chronic medical conditions: HLD, COPD -->> continue with/resume home meds as and when appropriate. DVT prophylaxis: SCDs Re: acute on chronic anemia. CODE STATUS: DNR/DNI 12/23, called and updated patient's daughter Erica. 12/26 updated dtr at bedside. PT/OT, CM to assist w/ dc planning. Expect DC in next few days with improvement of appetite and diarrhea. Admission and Anticipated Discharge Date Admission Date: December 21, 2021 Subjective Patient seen and examined at bedside as a follow-up of weakness, frequent falls, right hip osteoarthritis, left proximal ureteral calculi with mild left hydronephrosis. Patient was lying semiupright in bed, awake and alert, on 3 L nasal cannula oxygen, reports nonspecific belly pain, cannot localize, reports poor appetite but ate some today against none yesterday, denies any headache or dizziness, denies any fever or chills, denies any sore throat or cough. Per RN, no new acute event overnight, patient with very poor appetite, some concerns of fluid overload, will hold ivf. Also per RN, patient is now minimal to moderate assist. Per RN, she had 5 loose bm yesterday and 2 day. Physical Exam Physical Exam: GENERAL: Alert and awake. NAD, on 3L NC O2. Appears ill/frail/weak. HEENT: No pallor, no icterus. Pupils equal, round and reactive to light. Oral mucosa moist. NECK: No JVD, no neck masses. HEART: S1 and S2 heard. Regular rate and rhythm. No murmur, no gallop. RESPIRATORY SYSTEM: Normal AP diameter. No accessory muscle use. No wheezing, no crackles. ABDOMEN: Soft, bowel sounds present, minimal diffuse belly tenderness --> im proving, no distention. CENTRAL NERVOUS SYSTEM: No facial droop. Speech is clear. Obeys simple commands. Moves extremities. EXTREMITIES: 1+ edema, no erythema seen. Results & Data Results & Data ([facility]) Vital Signs (Past 12 Hours) Vital Signs Temp Pulse Pulse Resp BP BP Pulse Ox 12/28/21 15:22 96 12/28/21 08:00 12/28/21 11:31 36.9 C 61 20 156/68 H 95 12/28/21 08:08 36.9 C 69 20 174/61 H 98 12/28/21 07:25 66 O2 Del Method O2 Flow Rate 12/28/21 15:22 12/28/21 08:00 3 12/28/21 11:31 Nasal Cannula 2 12/28/21 08:08 Nasal Cannula 3 12/28/21 07:25
[2021-12-28] MEDS ORDERED: IRON SUCROSE 200 MG in 0.9 % SODIUM CHLORIDE 100 ML IV ONE (16:30)
[2021-12-28] MEDS: ONDANSETRON INJ 2 MG/ML 2 ML VIAL IV PRN (17:10)
[2021-12-28] MEDS: PANTOprazole 40 MG TAB PO SCH (20:30)
[2021-12-28] MEDS: [UNRECOGNIZED DRUG - REMARK] PO SCH (20:30)
[2021-12-29] MEDS: ACETAMINOPHEN 325 MG TAB PO SCH ×3 (05:59→18:05)
[2021-12-29] MEDS: RASPBERRY SYRUP 5 ML UDP PO SCH ×3 (05:59→18:04)
[2021-12-29] MEDS: VANCOMYCIN HCL 125 MG/2.5ML SOLN PO SCH ×3 (05:59→18:04)
[2021-12-29] MEDS: ASPIRIN 81 MG ECTAB PO SCH (07:45)
[2021-12-29] MEDS: CYANOCOBALAMIN (B-12) 100 MCG TABLET PO SCH (07:45)
[2021-12-29] MEDS: LORATADINE 10 MG TAB PO SCH (07:46)
[2021-12-29] MEDS: hydrALAZINE TAB 50 MG TAB PO SCH ×3 (07:46→20:04)
[2021-12-29] MEDS: LOSARTAN POTASSIUM 50 MG TAB PO SCH (07:46)
[2021-12-29] MEDS: FOLIC ACID 1 MG TAB PO SCH (07:47)
[2021-12-29] MEDS: TAMSULOSIN HCL 0.4 MG CAP PO SCH (07:47)
[2021-12-29] MEDS: DULoxetine HCL 30 MG CAP PO SCH (07:47)
[2021-12-29] MEDS: ADVANCED PROBIOTIC 1250 MG CAPSULE PO SCH (07:47)
[2021-12-29] MEDS: carvediloL 25 MG TAB PO SCH ×2 (07:47→20:04)
[2021-12-29] MEDS: cloNIDine HCL 0.1 MG TAB PO SCH ×2 (07:47→20:04)
[2021-12-29] MEDS: UMECLIDINIUM/VILANTEROL 62.5/25MCG 7 PUFFS/INHALER INH SCH (07:48)
[2021-12-29] MEDS: [UNRECOGNIZED DRUG - REMARK] PO SCH ×2 (07:48→20:04)
[2021-12-29 07:58] LABS: Hematocrit (blood only) 26.8 % (34.1-44.9); Hemoglobin 8.1 g/dl (12.0-16.0); Mean Corpuscular Hemoglobin 28.9 pg (25.0-34.0); Mean Corpuscular Hgb Conc 30.2 g/dL (32.0-36.0); Mean Corpuscular Volume 95.7 fL (80.0-100.0); Platelet Count 310 K/uL (130-400); RDW Coefficient of Variation 14.5 % (11.5-14.5); White Blood Count 9.31 K/ul (4.8-10.8)
[2021-12-29] MEDS: ONDANSETRON INJ 2 MG/ML 2 ML VIAL IV PRN (08:01)
[2021-12-29 08:24] LABS: BUN Creatinine Ratio 22.3 (10-20); Calcium 8.5 mg/dl (8.5-10.1); Creatinine Clr Calc Pharmacy 31.3 ml/min; Est GFR (African American) 39.2 ml/min; Est GFR (Non-African American) 33.8 ml/min; Magnesium 1.8 mg/dl (1.7-2.4); Phosphorus 2.7 mg/dl (2.5-4.9); Potassium 4.2 mmol/L (3.5-5.1)
[2021-12-29] MEDS ORDERED: PROMETHAZINE HCL 12.5 MG in SODIUM CHLORIDE 0.9% 50 ML IV STA (11:56)
--- NOTE | 2021-12-29 14:34 | Hospitalist Progress Note ---
Date of Service December 29, 2021 Assessment & Plan (1) Hydronephrosis concurrent with and due to calculi of kidney and ureter: Plan: Renal calculi Left mild hydronephrosis Last CT from 12/01/2021 with only 3 mm right nonobstructing nephrolithiasis. Admitting UA no s/o infection. Pt afebrile, c/w flomax, strain all urine, c/w pain management. Pt drowsy and sleepy likely 2/2 pain meds use, will cut down on opiates pain meds --> Tylenol scheduled, Tylenol 3 discontinued, hydromorphone every 8 hours as needed for severe pain, tramadol for mild to moderate pain as needed. Baseline creatinine around 1.6 upon outpatient chart review. Uro evaluated, status post cystoscopy and bilateral stent placement 12/24/2021. Patient will need outpatient follow-up with urology. Denies any urinary symptoms Remains generally weak and lethargic though Weakness: Frequent falls: Rt hip OA CT abd noted age indeterminate impacted right femoral fracture but Pelvic XR w/ no fracture but has Rt hip moderate OA Ortho evaled, no Ix for now. f/u [facility] in 2 weeks. Pt uses a walker and wheelchair at home. PDMP reviewed. Patient has been on tylenol 3 and alprazolam for sometime. This may be contributing to falls too. PT/OT eval Fall precautions Cautious use of Xanax Pt RN, pt is now min to mod assist from 2 person assist few days ago. (2) C. difficile colitis: Plan: Abdominal pain/nausea/poor appetite: Patient has been having this abdominal pain and nausea since 1 month [employer] per patient's daughter, patient had poor appetite since then. At baseline patient is not a great eater though. 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 Admitting CTAP with cyst [see above]. Patient does not drink alcohol. Pancreatic cyst: as in admitting CTAP. F/u w/ GI as OP. GI has been consulted, started PO vanco for possible C diff 12/27, patient does have loose stool, c diff gene positive but toxin negative. Pt ate some today, still with poor appetite, will hold IVF for concerns of fluid overload, assess in AM for fluid need if PO intake remains poor. Patient wouldn't want any kind of tube feeding/neither PEG tube nor Nasogastric tube. Still has abdominal discomfort with nausea without any vomiting and or diarrhea Will finish the course of oral vancomycin Plan 76 yo F with PMhx of HTN, HLD, COPD, Degenerative joint disease of right hip who presented 12/21 with repeated falls, weakness and generalized pain. She was recently admitted to [facility] for NANCY/rhabdomyolysis and falls from Dec 01- and was discharged home with health services.She is being managed for the following: Admitting imagings: CXR with cardiomegaly and without pulmonary edema. Trace pleural effusion with lateral right lung base opacities suggestive of atelectasis/scaring. CT head: No acute findings. C-spine CT: No acute findings. CTAP: Obstructing calculus/cluster of calculi in the left proximal ureter measuring up to 16 mm in length and causes mild left hydronephrosis. Nonobstructing calculi in the right kidney. Also there is pathologically indeterminant 4.1 cm ovoid cystic lesion in the distal pancreatic body which contains internal calcification/debris's. Nonemergent follow-up with GI for possible endoscopic ultrasound is recommended. Pelvic x-ray with moderate right hip osteoarthritis without acute fracture or dislocation. Left hip total joint arthroplasty with chronic revision changes noted. Elevated troponin: Hypertensive urgency: HTN (hypertension): BP 220/80-90 on admission Pt is compliant with medications at home per report, daughter is RN and manages her medications. Takes clonidine 0.2 mg BID, losartan 50 mg daily, carvedilol 12.5 mg BID, hydralazine 100 mg TID Losartan was increased to 100mg daily and carvedilol to 25mg bid on admission Troponin elevated at 48.2, flat trended. May be related to elevated BP. Denies chest pain, c/t telemetry monitoring. Doubt any ACS Acute on chronic anemia: OP Chart review w/ baseline Hb of 9-10. Admitting hemoglobin of 8.3, dropped to 7.6 on 12/23. Transfuse for symptomatic anemia or hemoglobin less than 7. Iron profile with lo w iron and low normal ferritin B12/folate. Started supplements. P.o. iron tablet on hold, will use Venofer given nausea and poor appetite. Can resume PO iron once appetite improves. Electrolyte abnormality: Monitor and replete as appropriate. Other chronic medical conditions: HLD, COPD -->> continue with/resume home meds as and when appropriate. DVT prophylaxis: SCDs Re: acute on chronic anemia. We will start subcu heparin CODE STATUS: DNR/DNI PT/OT, CM to assist w/ dc planning. Expect DC in next few days with improvement of appetite and diarrhea. Admission and Anticipated Discharge Date Admission Date: December 21, 2021 Subjective 12/29/2021 The patient was seen and examined in medical telemetry unit She was noted to be drowsy this morning with epigastric discomfort and nausea Denies any significant abdominal pain and her bowel has been moving Denies any chest pain and/or palpitation or shortness of breath No fever and or chills Review of Systems Review of Systems: All systems reviewed and are unremarkable except as noted below Physical Exam Physical Exam: Lying in bed with minimal distress due to abdominal discomfort Constitutional: well developed, well nourished, + ill appearing and + obese Eyes: PERRL, conjunctivae normal, anicteric sclerae ENMT: external ear and nose normal, oropharynx normal Neck: trachea midline, no thyromegaly Respiratory: no respiratory distress Auscultation: + diminished lung sounds and + crackles (Minimal crackles at the bases) Cardiovascular: Rate/Rhythm: regular rate and regular rhythm; not tachycardic Heart Sounds: normal S1 and normal S2; no murmur Extremities: + edema (Trace edema bilaterally) Gastrointestinal (Abdomen): Inspection/Auscultation: normal bowel sounds; abdomen not distended Percussion/Palpation: + abdomen tender (Tender epi gastrium) and abdomen soft Musculoskeletal: No acute arthritis in any joint Neurologic: Alert, awake and oriented x3. Generally very weak and lethargic. No focal neurodeficit Lymphatic: no cervical or axillary lymphadenopathy Results & Data Results & Data ([facility]) Vital Signs (Past 12 Hours) Vital Signs Temp Pulse Pulse Resp BP Pulse Ox O2 Del Method 12/29/21 12:00 36.9 C 68 16 108/51 L 95 Nasal Cannula 12/29/21 07:45 Nasal Cannula 12/29/21 08:00 36.5 C 70 16 154/61 H 97 Nasal Cannula 12/29/21 07:49 36.7 C 72 16 186/54 H 97 Nasal Cannula 12/29/21 07:16 76 12/29/21 03:19 36.8 C 67 18 150/63 H 97 Nasal Cannula O2 Flow Rate 12/29/21 12:00 3 12/29/21 07:45 3 12/29/21 08:00 3 12/29/21 07:49 3 12/29/21 07:16 12/29/21 03:19 3 Laboratory Results Short CBC 12/29/21 Range/Units 07:03 WBC 9.31 (4.8-10.8) K/ul Hgb 8.1 L (12.0-16.0) g/dl Hct 26.8 L (34.1-44.9) % Plt Count 310 (130-400) K/uL BMP 12/29/21 07:03 Sodium 145 Potassium 4.2 Chloride 112 H Carbon Dioxide 29 BUN 33 H Creatinine 1.48 H Glucose 116 H Calcium 8.5 Medications Administered Current Inpatient Medications Acetaminophen (Acetaminophen 325 Mg Tab) 650 mg PO Q6 [facility] Stop: 01/21/22 13:59 Last Admin: 12/29/21 12:57 Dose: 650 mg Albuterol (Albuterol 0.083% Nebu Soln 3 Ml Vial) 2.5 mg INH Q4H PRN; Protocol PRN Reason: Shortness Of Breath Stop: 01/20/22 18:27 Alprazolam (Alprazolam 0.5 Mg Tablet) 0.5 mg PO HS PRN PRN Reason: Anxiety Stop: 01/20/22 18:51 Last Admin: 12/27/21 23:12 Dose: 0.5 mg Aspirin (Aspirin 81 Mg Ectab) 81 mg PO DAILY [facility] Stop: 01/21/22 08:59 Last Admin: 12/29/21 07:45 Dose: 81 mg Carvedilol (Carvedilol 25 Mg Tab) 25 mg PO BID [facility] Stop: 01/20/22 20:59 Last Admin: 12/29/21 07:47 Dose: 25 mg Clonidine HCl (Clonidine Hcl 0.1 Mg Tab) 0.2 mg PO BID [facility] Stop: 01/21/22 20:59 Last Admin: 12/29/21 07:47 Dose: 0.2 mg Cyanocobalamin (Cyanocobalamin (B-12) 100 Mcg Tablet) 100 mcg PO QAM [facility] Stop: 01/23/22 17:29 Last Admin: 12/29/21 07:45 Dose: 100 mcg Duloxetine HCl (Duloxetine Hcl 30 Mg Cap) 30 mg PO QAM [facility] Stop: 01/21/22 08:59 Last Admin: 12/29/21 07:47 Dose: 30 mg Ergocalciferol (Ergocalciferol 50,000 Units 1250 Mcg Cap) 50,000 units PO Dobson@2100 [facility] Stop: 01/25/22 20:59 Last Admin: 12/26/21 21:22 Dose: 50,000 units Ferrous Gluconate (Ferrous Gluconate 324 Mg Tab) 324 mg PO QAM [facility] Stop: 01/24/22 08:59 Last Admin: 12/26/21 07:50 Dose: 324 mg Folic Acid (Folic Acid 1 Mg Tab) 1 mg PO QAM [facility] Stop: 01/23/22 17:29 Last Admin: 12/29/21 07:47 Dose: 1 mg Hydralazine HCl (Hydralazine Tab 50 Mg Tab) 100 mg PO TID [facility] Stop: 01/20/22 20:59 Last Admin: 12/29/21 13:52 Dose: Not Given Hydromorphone HCl (Hydromorphone Inj 0.5 Mg/0.5 Ml Syr) 0.5 mg IV Q8H PRN PRN Reason: Severe Pain Stop: 01/05/22 17:14 Last Admin: 12/23/21 22:13 Dose: 0.5 mg Hydroxyzine HCl (Hydroxyzine Hcl 25 Mg Tab) 25 mg PO Q8H PRN PRN Reason: anxiety Stop: 01/24/22 13:59 Last Admin: 12/25/21 23:13 Dose: 25 mg Labetalol HCl (Labetalol Hcl Iv 5 Mg/Ml 20ml) 10 mg IV Q4H PRN; Protocol PRN Reason: htn Stop: 01/20/22 18:27 Last Admin: 12/22/21 11:53 Dose: 10 mg Lactobacillus Acidophilus (Advanced Probiotic 1250 Mg Capsule) 2 cap PO DAILY [facility] Stop: 01/22/22 13:14 Last Admin: 12/29/21 07:47 Dose: 2 cap Loratadine (Loratadine 10 Mg Tab) 10 mg PO DAILY [facility] Stop: 01/21/22 08:59 Last Admin: 12/29/21 07:46 Dose: 10 mg Losartan Potassium (Losartan Potassium 50 Mg Tab) 100 mg PO DAILY [facility] Stop: 01/21/22 08:59 Last Admin: 12/29/21 07:46 Dose: 100 mg Miconazole Nitrate (Miconazole Nitrate Powder 43 Gm) 1 appln EXT PRN PRN PRN Reason: Affected Skin Folds Stop: 01/21/22 13:03 Last Admin: 12/24/21 08:43 Dose: 1 appln Famotidine (Zantac 360) Non-Form Patient's Own Med 1 each PO BID [facility] Stop: 01/27/22 20:59 Last Admin: 12/29/21 07:48 Dose: 20 mg Ondansetron HCl (Ondansetron Inj 2 Mg/Ml 2 Ml Vial) 4 mg IV Q6H PRN PRN Reason: Nausea And Vomiting Stop: 01/21/22 08:26 Last Admin: 12/29/21 08:01 Dose: 4 mg Pantoprazole Sodium (Pantoprazole 40 Mg Tab) 40 mg PO HS [facility] Stop: 01/20/22 20:59 Last Admin: 12/28/21 20:30 Dose: 40 mg Raspberry (Raspberry Syrup 5 Ml Udp) 5 ml PO Q6 [facility] Stop: 01/06/22 17:59 Last Admin: 12/29/21 12:56 Dose: 5 ml Tamsulosin HCl (Tamsulosin Hcl 0.4 Mg Cap) 0.4 mg PO QAM [facility] Stop: 01/20/22 18:27 Last Admin: 12/29/21 07:47 Dose: 0.4 mg Tramadol HCl (Tramadol Hcl 50 Mg Tablet) 25 mg PO Q6H PRN PRN Reason: Mild or moderate pain Stop: 01/21/22 17:13 Umeclidinium/Vilanterol (Umeclidinium/Vilanterol 62.5/25mcg 7 Puffs/Inhaler) 1 puffs INH DAILY [facility] Stop: 01/21/22 08:59 Last Admin: 12/29/21 07:48 Dose: 1 puffs Vancomycin HCl (Vancomycin Hcl 125 Mg/2.5ml Soln) 125 mg PO Q6 [facility] Stop: 01/06/22 17:59 Last Admin: 12/29/21 12:57 Dose: 125 mg
[2021-12-29 16:12] LABS: Component 2 DNR; Source BLADDER STONE
[2021-12-29] MEDS: HEPARIN SOD 5,000 UNIT/0.5 ML VIAL SQ SCH ×2 (18:04→20:04)
[2021-12-29] MEDS: PANTOprazole 40 MG TAB PO SCH (20:04)
[2021-12-29] MEDS: ALPRAZolam 0.5 MG TABLET PO PRN (20:13)
[2021-12-30] MEDS: VANCOMYCIN HCL 125 MG/2.5ML SOLN PO SCH ×4 (00:10→18:40)
[2021-12-30] MEDS: ACETAMINOPHEN 325 MG TAB PO SCH ×4 (00:10→18:40)
[2021-12-30] MEDS: RASPBERRY SYRUP 5 ML UDP PO SCH ×4 (00:10→18:40)
[2021-12-30 06:26] LABS: Hematocrit (blood only) 27.1 % (34.1-44.9); Hemoglobin 8.1 g/dl (12.0-16.0); Mean Corpuscular Hemoglobin 28.6 pg (25.0-34.0); Mean Corpuscular Hgb Conc 29.9 g/dL (32.0-36.0); Mean Corpuscular Volume 95.8 fL (80.0-100.0); Mean Platelet Volume 9.7 fL (9.4-12.3); Platelet Count 317 K/uL (130-400); RDW Coefficient of Variation 14.4 % (11.5-14.5); RDW Standard Deviation 50.4 fL (36.4-46.3); Red Blood Count 2.83 M/uL (3.93-5.22); White Blood Count 8.41 K/ul (4.8-10.8)
[2021-12-30 07:05] LABS: Basophils # (auto) 0.03 K/uL (0-0.2); Basophils % (auto) 0.4 %; Eosinophils # (auto) 0.47 K/uL (0-0.50); Eosinophils % (auto) 5.6 %; Immature Granulocytes # (auto) 0.62 K/uL (0.00-0.02); Immature Granulocytes % (auto) 7.4 %; Lymphocytes # (auto) 1.16 K/uL (1.2-3.4); Lymphocytes % (auto) 13.8 %; Monocytes # (auto) 0.97 K/uL (0.24-0.82); Monocytes % (auto) 11.5 %; Neutrophils # (auto) 5.16 K/uL (1.4-6.5); Neutrophils % (auto) 61.3 %
[2021-12-30 07:37] LABS: BUN Creatinine Ratio 20.5 (10-20); Calcium 8.4 mg/dl (8.5-10.1); Creatinine Clr Calc Pharmacy 32.3 ml/min; Est GFR (African American) 39.8 ml/min; Est GFR (Non-African American) 34.4 ml/min; Potassium 4.1 mmol/L (3.5-5.1)
[2021-12-30 08:55] LABS: Magnesium 1.7 mg/dl (1.7-2.4)
[2021-12-30] MEDS: ADVANCED PROBIOTIC 1250 MG CAPSULE PO SCH (09:07)
[2021-12-30] MEDS: hydrALAZINE TAB 50 MG TAB PO SCH ×3 (09:08→22:20)
[2021-12-30] MEDS: LOSARTAN POTASSIUM 50 MG TAB PO SCH (09:08)
[2021-12-30] MEDS: cloNIDine HCL 0.1 MG TAB PO SCH ×2 (09:08→22:26)
[2021-12-30] MEDS: LORATADINE 10 MG TAB PO SCH (09:09)
[2021-12-30] MEDS: CYANOCOBALAMIN (B-12) 100 MCG TABLET PO SCH (09:09)
[2021-12-30] MEDS: FOLIC ACID 1 MG TAB PO SCH (09:09)
[2021-12-30] MEDS: TAMSULOSIN HCL 0.4 MG CAP PO SCH (09:09)
[2021-12-30] MEDS: ASPIRIN 81 MG ECTAB PO SCH (09:10)
[2021-12-30] MEDS: DULoxetine HCL 30 MG CAP PO SCH (09:10)
[2021-12-30] MEDS: carvediloL 25 MG TAB PO SCH ×2 (09:10→22:26)
[2021-12-30] MEDS: [UNRECOGNIZED DRUG - REMARK] PO SCH ×2 (09:11→22:20)
[2021-12-30] MEDS: HEPARIN SOD 5,000 UNIT/0.5 ML VIAL SQ SCH ×2 (09:12→22:19)
[2021-12-30] MEDS: UMECLIDINIUM/VILANTEROL 62.5/25MCG 7 PUFFS/INHALER INH SCH (09:13)
--- NOTE | 2021-12-30 15:40 | Hospitalist Progress Note ---
Date of Service December 30, 2021 Assessment & Plan (1) Hydronephrosis concurrent with and due to calculi of kidney and ureter: Plan: Renal calculi Left mild hydronephrosis Last CT from 12/01/2021 with only 3 mm right nonobstructing nephrolithiasis. Admitting UA no s/o infection. Pt afebrile, c/w flomax, strain all urine, c/w pain management. Pt drowsy and sleepy likely 2/2 pain meds use, will cut down on opiates pain meds --> Tylenol scheduled, Tylenol 3 discontinued, hydromorphone every 8 hours as needed for severe pain, tramadol for mild to moderate pain as needed. Baseline creatinine around 1.6 upon outpatient chart review. Uro evaluated, status post cystoscopy and bilateral stent placement 12/24/2021. Patient will need outpatient follow-up with urology. Denies any urinary symptoms Remains generally weak and lethargic though Denies any significant symptoms and was strongly advised to continue with the physical therapy Weakness: Frequent falls: Rt hip OA CT abd noted age indeterminate impacted right femoral fracture but Pelvic XR w/ no fracture but has Rt hip moderate OA Ortho evaled, no Ix for now. f/u [facility] in 2 weeks. Pt uses a walker and wheelchair at home. PDMP reviewed. Patient has been on tylenol 3 and alprazolam for sometime. This may be contributing to falls too. PT/OT eval Fall precautions Cautious use of Xanax Getting better with physical therapy (2) C. difficile colitis: Plan: Abdominal pain/nausea/poor appetite: Patient has been having this abdominal pain and nausea since 1 month [employer]ALK M[employer] per patient's daughter, patient had poor appetite since then. At baseline patient is not a great eater though. 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 Admitting CTAP with cyst [see above]. Patient does not drink alcohol. Pancreatic cyst: as in admitting CTAP. F/u w/ GI as OP. GI has been consulted, started PO vanco for possible C diff 12/27, patient does have loose stool, c diff gene positive but toxin negative. Pt ate some today, still with poor appetite, will hold IVF for concerns of fluid overload, assess in AM for fluid need if PO intake remains poor. Patient wouldn't want any kind of tube feeding/neither PEG tube nor Nasogastric tube. Still has abdominal discomfort with nausea without any vomiting and or diarrhea Will finish the course of oral vancomycin Denies any more diarrhea Plan 76 yo F with PMhx of HTN, HLD, COPD, Degenerative joint disease of right hip who presented 12/21 with repeated falls, weakness and generalized pain. She was recently admitted to [facility] for NANCY/rhabdomyolysis and falls from Dec 01- and was discharged home with health services.She is being managed for the following: Admitting imagings: CXR with cardiomegaly and without pulmonary edema. Trace pleural effusion with lateral right lung base opacities suggestive of atelectasis/scaring. CT head: No acute findings. C-spine CT: No acute findings. CTAP: Obstructing calculus/cluster of calculi in the left proximal ureter measuring up to 16 mm in length and causes mild left hydronephrosis. Nonobstructing calculi in the right kidney. Also there is pathologically indeterminant 4.1 cm ovoid cystic lesion in the distal pancreatic body which contains internal calcification/debris's. Nonemergent follow-up with GI for possible endoscopic ultrasound is recommended. Pelvic x-ray with moderate right hip osteoarthritis without acute fracture or dislocation. Left hip total joint arthroplasty with chronic revision changes noted. Elevated troponin: Hypertensive urgency: HTN (hypertension): BP 220/80-90 on admission Pt is compliant with medications at home per report, daughter is RN and manages her medications. Takes clonidine 0.2 mg BID, losartan 50 mg daily, carvedilol 12.5 mg BID, hydralazine 100 mg TID Losartan was increased to 100mg daily and carvedilol to 25mg bid on admission Troponin elevated at 48.2, flat trended. May be related to elevated BP. Denies chest pain, c/t telemetry monitoring. Doubt any ACS Acute on chronic anemia: OP Chart review w/ baseline Hb of 9-10. Admitting hemoglobin of 8.3, dropped to 7.6 on 12/23. Transfuse for symptomatic anemia or hemoglobin less than 7. Iron profile with low iron and low normal ferritin B12/folate. Started supplements. P.o. iron tablet on hold, will use Venofer given nausea and poor appetite. Can resume PO iron once appetite improves. Electrolyte abnormality: Monitor and replete as appropriate. Other chronic medical conditions: HLD, COPD -->> continue with/resume home meds as and when appropriate. DVT prophylaxis: SCDs Re: acute on chronic anemia. We will start subcu heparin CODE STATUS: DNR/DNI PT/OT, CM to assist w/ dc planning. Expect DC in next few days with improvement of appetite and diarrhea. Admission and Anticipated Discharge Date Admission Date: December 21, 2021 Subjective 12/29/2021 The patient was seen and examined in medical telemetry unit She was noted to be drowsy this morning with epigastric discomfort and nausea Denies any significant abdominal pain and her bowel has been moving Denies any chest pain and/or palpitation or shortness of breath No fever and or chills 12/30/2021 The patient was seen and examined in medical telemetry unit She has been a little better today but still remains weak and lethargic Does not want to participate in physical therapy Denies any significant symptoms Review of Systems Review of Systems: All systems reviewed and are unremarkable except as noted below Physical Exam Physical Exam: Lying in bed with minimal distress due to abdominal discomfort Constitutional: well developed, well nourished, + ill appearing and + obese Eyes: PERRL, conjunctivae normal, anicteric sclerae ENMT: external ear and nose normal, oropharynx normal Neck: trachea midline, no thyromegaly Respiratory: no respiratory distress Auscultation: + diminished lung sounds and + crackles (Minimal crackles at the bases) Cardiovascular: Rate/Rhythm: regular rate and regular rhythm; not tachycardic Heart Sounds: normal S1 and normal S2; no murmur Extremities: + edema (Trace edema bilaterally) Gastrointestinal (Abdomen): Inspection/Auscultation: normal bowel sounds; abdomen not distended Percussion/Palpation: + abdomen tender (Tender epigastrium) and abdomen soft Lymphatic: no cervical or axillary lymphadenopathy Results & Data Results & Data ([facility]) Vital Signs (Past 12 Hours) Vital Signs Temp Pulse Pulse Resp BP Pulse Ox O2 Del Method 12/30/21 15:18 37 C 67 21 159/78 H 99 Nasal Cannula 12/30/21 08:00 Nasal Cannula 12/30/21 11:27 36.6 C 66 19 147/64 H 98 Nasal Cannula 12/30/21 08:07 37 C 76 19 187/66 H 97 Nasal Cannula 12/30/21 07:20 69 O2 Flow Rate 12/30/21 15:18 2 12/30/21 08:00 3 12/30/21 11:27 2 12/30/21 08:07 2 12/30/21 07:20 Laboratory Results Short CBC 12/30/21 Range/Units 06:03 WBC 8.41 (4.8-10.8) K/ul Hgb 8.1 L (12.0-16.0) g/dl Hct 27.1 L (34.1-44.9) % Plt Count 317 (130-400) K/uL BMP 12/30/21 06:03 Sodium 144 Potassium 4.1 Chloride 112 H Carbon Dioxide 28 BUN 30 H Creatinine 1.46 H Glucose 117 H Calcium 8.4 L Medications Administered Current Inpatient Medications Acetaminophen (Acetaminophen 325 Mg Tab) 650 mg PO Q6 [facility] Stop: 01/21/22 13:59 Last Admin: 12/30/21 12:57 Dose: 650 mg Albuterol (Albuterol 0.083% Nebu Soln 3 Ml Vial) 2.5 mg INH Q4H PRN; Protocol PRN Reason: Shortness Of Breath Stop: 01/20/22 18:27 Alprazolam (Alprazolam 0.5 Mg Tablet) 0.5 mg PO HS PRN PRN Reason: Anxiety Stop: 01/20/22 18:51 Last Admin: 12/29/21 20:13 Dose: 0.5 mg Aspirin (Aspirin 81 Mg Ectab) 81 mg PO DAILY [facility] Stop: 01/21/22 08:59 Last Admin: 12/30/21 09:10 Dose: 81 mg Carvedilol (Carvedilol 25 Mg Tab) 25 mg PO BID [facility] Stop: 01/20/22 20:59 Last Admin: 12/30/21 09:10 Dose: 25 mg Clonidine HCl (Clonidine Hcl 0.1 Mg Tab) 0.2 mg PO BID [facility] Stop: 01/21/22 20:59 Last Admin: 12/30/21 09:08 Dose: 0.2 mg Cyanocobalamin (Cyanocobalamin (B-12) 100 Mcg Tablet) 100 mcg PO QAM [facility] Stop: 01/23/22 17:29 Last Admin: 12/30/21 09:09 Dose: 100 mcg Duloxetine HCl (Duloxetine Hcl 30 Mg Cap) 30 mg PO QAM [facility] Stop: 01/21/22 08:59 Last Admin: 12/30/21 09:10 Dose: 30 mg Ergocalciferol (Ergocalciferol 50,000 Units 1250 Mcg Cap) 50,000 units PO Dobson@2100 [facility] Stop: 01/25/22 20:59 Last Admin: 12/26/21 21:22 Dose: 50,000 units Ferrous Gluconate (Ferrous Gluconate 324 Mg Tab) 324 mg PO QAM [facility] Stop: 01/24/22 08:59 Last Admin: 12/26/21 07:50 Dose: 324 mg Folic Acid (Folic Acid 1 Mg Tab) 1 mg PO QAM [facility] Stop: 01/23/22 17:29 Last Admin: 12/30/21 09:09 Dose: 1 mg Heparin Sodium (Porcine) (Heparin Sod 5,000 Unit/0.5 Ml Vial) 5,000 units SQ Q12 [facility] Stop: 01/28/22 20:59 Last Admin: 12/30/21 09:12 Dose: 5,000 units Hydralazine HCl (Hydralazine Tab 50 Mg Tab) 100 mg PO TID [facility] Stop: 01/20/22 20:59 Last Admin: 12/30/21 09:08 Dose: 100 mg Hydromorphone HCl (Hydromorphone Inj 0.5 Mg/0.5 Ml Syr) 0.5 mg IV Q8H PRN PRN Reason: Severe Pain Stop: 01/05/22 17:14 Last Admin: 12/23/21 22:13 Dose: 0.5 mg Hydroxyzine HCl (Hydroxyzine Hcl 25 Mg Tab) 25 mg PO Q8H PRN PRN Reason: anxiety Stop: 01/24/22 13:59 Last Admin: 12/25/21 23:13 Dose: 25 mg Labetalol HCl (Labetalol Hcl Iv 5 Mg/Ml 20ml) 10 mg IV Q4H PRN; Protocol PRN Reason: htn Stop: 01/20/22 18:27 Last Admin: 12/22/21 11:53 Dose: 10 mg Lactobacillus Acidophilus (Advanced Probiotic 1250 Mg Capsule) 2 cap PO DAILY [facility] Stop: 01/22/22 13:14 Last Admin: 12/30/21 09:07 Dose: 2 cap Loratadine (Loratadine 10 Mg Tab) 10 mg PO DAILY [facility] Stop: 01/21/22 08:59 Last Admin: 12/30/21 09:09 Dose: 10 mg Losartan Potassium (Losartan Potassium 50 Mg Tab) 100 mg PO DAILY [facility] Stop: 01/21/22 08:59 Last Admin: 12/30/21 09:08 Dose: 100 mg Miconazole Nitrate (Miconazole Nitrate Powder 43 Gm) 1 appln EXT PRN PRN PRN Reason: Affected Skin Folds Stop: 01/21/22 13:03 Last Admin: 12/24/21 08:43 Dose: 1 appln Famotidine (Zantac 360) Non-Form Patient's Own Med 1 each PO BID [facility] Stop: 01/27/22 20:59 Last Admin: 12/30/21 09:11 Dose: 20 mg Ondansetron HCl (Ondansetron Inj 2 Mg/Ml 2 Ml Vial) 4 mg IV Q6H PRN PRN Reason: Nausea And Vomiting Stop: 01/21/22 08:26 Last Admin: 12/29/21 08:01 Dose: 4 mg Pantoprazole Sodium (Pantoprazole 40 Mg Tab) 40 mg PO HS [facility] Stop: 01/20/22 20:59 Last Admin: 12/29/21 20:04 Dose: 40 mg Raspberry (Raspberry Syrup 5 Ml Udp) 5 ml PO Q6 [facility] Stop: 01/06/22 17:59 Last Admin: 12/30/21 12:59 Dose: 5 ml Tamsulosin HCl (Tamsulosin Hcl 0.4 Mg Cap) 0.4 mg PO QAM [facility] Stop: 01/20/22 18:27 Last Admin: 12/30/21 09:09 Dose: 0.4 mg Tramadol HCl (Tramadol Hcl 50 Mg Tablet) 25 mg PO Q6H PRN PRN Reason: Mild or moderate pain Stop: 01/21/22 17:13 Umeclidinium/Vilanterol (Umeclidinium/Vilanterol 62.5/25mcg 7 Puffs/Inhaler) 1 puffs INH DAILY [facility] Stop: 01/21/22 08:59 Last Admin: 12/30/21 09:13 Dose: 1 puffs Vancomycin HCl (Vancomycin Hcl 125 Mg/2.5ml Soln) 125 mg PO Q6 [facility] Stop: 01/06/22 17:59 Last Admin: 12/30/21 12:57 Dose: 125 mg
[2021-12-30] MEDS: ONDANSETRON INJ 2 MG/ML 2 ML VIAL IV PRN (16:55)
[2021-12-30] MEDS: PANTOprazole 40 MG TAB PO SCH (22:26)
[2021-12-30] MEDS: ALPRAZolam 0.5 MG TABLET PO PRN (22:26)
[2021-12-31] MEDS: ACETAMINOPHEN 325 MG TAB PO SCH ×4 (01:37→17:47)
[2021-12-31] MEDS: VANCOMYCIN HCL 125 MG/2.5ML SOLN PO SCH ×4 (01:37→17:46)
[2021-12-31] MEDS: RASPBERRY SYRUP 5 ML UDP PO SCH ×4 (01:37→17:46)
[2021-12-31] MEDS: ONDANSETRON INJ 2 MG/ML 2 ML VIAL IV PRN (01:40)
[2021-12-31] MEDS: CYANOCOBALAMIN (B-12) 100 MCG TABLET PO SCH (08:53)
[2021-12-31] MEDS: FOLIC ACID 1 MG TAB PO SCH (08:53)
[2021-12-31] MEDS: DULoxetine HCL 30 MG CAP PO SCH (08:53)
[2021-12-31] MEDS: carvediloL 25 MG TAB PO SCH ×2 (08:53→22:01)
[2021-12-31] MEDS: cloNIDine HCL 0.1 MG TAB PO SCH ×2 (08:53→22:02)
[2021-12-31] MEDS: TAMSULOSIN HCL 0.4 MG CAP PO SCH (08:53)
[2021-12-31] MEDS: hydrALAZINE TAB 50 MG TAB PO SCH ×3 (08:54→22:00)
[2021-12-31] MEDS: ASPIRIN 81 MG ECTAB PO SCH (08:54)
[2021-12-31] MEDS: ADVANCED PROBIOTIC 1250 MG CAPSULE PO SCH (08:54)
[2021-12-31] MEDS: LOSARTAN POTASSIUM 50 MG TAB PO SCH (08:54)
[2021-12-31] MEDS: LORATADINE 10 MG TAB PO SCH (08:55)
[2021-12-31] MEDS: [UNRECOGNIZED DRUG - REMARK] PO SCH ×2 (08:55→22:00)
[2021-12-31] MEDS: HEPARIN SOD 5,000 UNIT/0.5 ML VIAL SQ SCH ×2 (08:56→22:00)
[2021-12-31] MEDS: UMECLIDINIUM/VILANTEROL 62.5/25MCG 7 PUFFS/INHALER INH SCH (08:57)
--- NOTE | 2021-12-31 14:58 | Hospitalist Progress Note ---
Date of Service December 31, 2021 Assessment & Plan (1) Hydronephrosis concurrent with and due to calculi of kidney and ureter: Plan: Renal calculi Left mild hydronephrosis Last CT from 12/01/2021 with only 3 mm right nonobstructing nephrolithiasis. Admitting UA no s/o infection. Pt afebrile, c/w flomax, strain all urine, c/w pain management. Pt drowsy and sleepy likely 2/2 pain meds use, will cut down on opiates pain meds --> Tylenol scheduled, Tylenol 3 discontinued, hydromorphone every 8 hours as needed for severe pain, tramadol for mild to moderate pain as needed. Baseline creatinine around 1.6 upon outpatient chart review. Uro evaluated, status post cystoscopy and bilateral stent placement 12/24/2021. Patient will need outpatient follow-up with urology. Denies any urinary symptoms Weakness: Frequent falls: Rt hip OA CT abd noted age indeterminate impacted right femoral fracture but Pelvic XR w/ no fracture but has Rt hip moderate OA Ortho evaled, no Ix for now. f/u [facility] in 2 weeks. Pt uses a walker and wheelchair at home. PDMP reviewed. Patient has been on tylenol 3 and alprazolam for sometime. This may be contributing to falls too. PT/OT eval Fall precautions Cautious use of Xanax Has been accepted to [facility] A little bit brighter today and will continue physical therapy (2) C. 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 At baseline patient is not a great eater though. 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 Admitting CTAP with cyst [see above]. Patient does not drink alcohol. Pancreatic cyst: as in admitting CTAP. F/u w/ GI as OP. GI has been consulted, started PO vanco for possible C diff 12/27, patient does have loose stool, c diff gene positive but toxin negative. Pt ate some today, still with poor appetite, will hold IVF for concerns of fluid overload, assess in AM for fluid need if PO intake remains poor. Patient wouldn't want any kind of tube feeding/neither PEG tube nor Nasogastric tube. Still has abdominal discomfort with nausea without any vomiting and or diarrhea Will finish the course of oral vancomycin Denies any more diarrhea and does not have any more abdominal discomfort Plan 76 yo F with PMhx of HTN, HLD, COPD, Degenerative joint disease of right hip who presented 12/21 with repeated falls, weakness and generalized pain. She was recently admitted to [facility] for NANCY/rhabdomyolysis and falls from Dec 01- and was discharged home with health services.She is being managed for the following: Admitting imagings: CXR with cardiomegaly and without pulmonary edema. Trace pleural effusion with lateral right lung base opacities suggestive of atelectasis/scaring. CT head: No acute findings. C-spine CT: No acute findings. CTAP: Obstructing calculus/cluster of calculi in the left proximal ureter measuring up to 16 mm in length and causes mild left hydronephrosis. Nonobst ructing calculi in the right kidney. Also there is pathologically indeterminant 4.1 cm ovoid cystic lesion in the distal pancreatic body which contains internal calcification/debris's. Nonemergent follow-up with GI for possible endoscopic ultrasound is recommended. Pelvic x-ray with moderate right hip osteoarthritis without acute fracture or dislocation. Left hip total joint arthroplasty with chronic revision changes noted. Elevated troponin: Hypertensive urgency: HTN (hypertension): BP 220/80-90 on admission Pt is compliant with medications at home per report, daughter is RN and manages her medications. Takes clonidine 0.2 mg BID, losartan 50 mg daily, carvedilol 12.5 mg BID, hyd ralazine 100 mg TID Losartan was increased to 100mg daily and carvedilol to 25mg bid on admission Blood pressure is reasonably controlled with current doses of medication Troponin elevated at 48.2, flat trended. May be related to elevated BP. Denies chest pain, c/t telemetry monitoring. Doubt any ACS Acute on chronic anemia: OP Chart review w/ baseline Hb of 9-10. Admitting hemoglobin of 8.3, dropped to 7.6 on 12/23. Transfuse for symptomatic anemia or hemoglobin less than 7. Iron profile with low iron and low normal ferritin B12/folate. Started supplements. P.o. iron tablet on hold, will use Venofer given nausea and poor appetite. Can resume PO iron once appetite improves. Electrolyte abnormality: Monitor and replete as appropriate. Other chronic medical conditions: HLD, COPD -->> continue with/resume home meds as and when appropriate. DVT prophylaxis: SCDs Re: acute on chronic anemia. We will start subcu heparin CODE STATUS: DNR/DNI PT/OT, CM to assist w/ dc planning. Expect DC in next few days with improvement of appetite and diarrhea. Likely to be discharged tomorrow Admission and Anticipated Discharge Date Admission Date: December 21, 2021 Subjective 12/29/2021 The patient was seen and examined in medical telemetry unit She was noted to be drowsy this morning with epigastric discomfort and nausea Denies any significant abdominal pain and her bowel has been moving Denies any chest pain and/or palpitation or shortness of breath No fever and or chills 12/30/2021 The patient was seen and examined in medical telemetry unit She has been a little better today but still remains weak and lethargic Does not want to participate in physical therapy Denies any significant symptoms 12/31/2021 The patient was seen and examined in medical telemetry unit She remains very weak and lethargic but a little brighter today Denies any significant symptoms She is willing to participate in physical therapy Review of Systems Review of Systems: All systems reviewed and are unremarkable except as noted below Physical Exam Physical Exam: Lying in bed with minimal distress due to abdominal discomfort Constitutional: well developed, well nourished, + ill appearing and + obese Eyes: PERRL, conjunctivae normal, anicteric sclerae ENMT: external ear and nose normal, oropharynx normal Neck: trachea midline, no thyromegaly Respiratory: no respiratory distress Auscultation: + diminished lung sounds and + crackles (Minimal crackles at the bases) Cardiovascular: Rate/Rhythm: regular rate and regular rhythm; not tachycardic Heart Sounds: normal S1 and normal S2; no murmur Extremities: + edema (Trace edema bilaterally) Gastrointestinal (Abdomen): Inspection/Auscultation: normal bowel sounds; abdomen not distended Percussion/Palpation: + abdomen tender (Tender epigastrium) and abdomen soft Musculoskeletal: No acute arthritis involving any joint Neurologic: Alert, awake and oriented x3. Generally very weak and lethargic Lymphatic: no cervical or axillary lymphadenopathy Results & Data Results & Data ([facility]) Vital Signs (Past 12 Hours) Vital Signs Temp Pulse Pulse Resp BP BP Pulse Ox 12/31/21 14:40 36.9 C 74 20 146/53 H 98 12/31/21 11:13 36.8 C 65 20 126/63 98 12/31/21 08:00 12/31/21 07:53 36.5 C 76 20 155/72 H 98 12/31/21 07:18 60 12/31/21 03:29 37.2 C 63 18 138/55 L 97 O2 Del Method O2 Flow Rate 12/31/21 14:40 Nasal Cannula 2 12/31/21 11:13 Nasal Cannula 2 12/31/21 08:00 Nasal Cannula 3 12/31/21 07:53 Nasal Cannula 2 12/31/21 07:18 12/31/21 03:29 Nasal Cannula 3 Medications Administered Current Inpatient Medications Acetaminophen (Acetaminophen 325 Mg Tab) 650 mg PO Q6 [facility] Stop: 01/21/22 13:59 Last Admin: 12/31/21 13:32 Dose: 650 mg Albuterol (Albuterol 0.083% Nebu Soln 3 Ml Vial) 2.5 mg INH Q4H PRN; Protocol PRN Reason: Shortness Of Breath Stop: 01/20/22 18:27 Alprazolam (Alprazolam 0.5 Mg Tablet) 0.5 mg PO HS PRN PRN Reason: Anxiety Stop: 01/20/22 18:51 Last Admin: 12/30/21 22:26 Dose: 0.5 mg Aspirin (Aspirin 81 Mg Ectab) 81 mg PO DAILY [facility] Stop: 01/21/22 08:59 Last Admin: 12/31/21 08:54 Dose: 81 mg Carvedilol (Carvedilol 25 Mg Tab) 25 mg PO BID [facility] Stop: 01/20/22 20:59 Last Admin: 12/31/21 08:53 Dose: 25 mg Clonidine HCl (Clonidine Hcl 0.1 Mg Tab) 0.2 mg PO BID [facility] Stop: 01/21/22 20:59 Last Admin: 12/31/21 08:53 Dose: 0.2 mg Cyanocobalamin (Cyanocobalamin (B-12) 100 Mcg Tablet) 100 mcg PO QAM [facility] Stop: 01/23/22 17:29 Last Admin: 12/31/21 08:53 Dose: 100 mcg Ergocalciferol (Ergocalciferol 50,000 Units 1250 Mcg Cap) 50,000 units PO Dobson@2100 [facility] Stop: 01/25/22 20:59 Last Admin: 12/26/21 21:22 Dose: 50,000 units Ferrous Gluconate (Ferrous Gluconate 324 Mg Tab) 324 mg PO QAM [facility] Stop: 01/24/22 08:59 Last Admin: 12/26/21 07:50 Dose: 324 mg Folic Acid (Folic Acid 1 Mg Tab) 1 mg PO QAM [facility] Stop: 01/23/22 17:29 Last Admin: 12/31/21 08:53 Dose: 1 mg Heparin Sodium (Porcine) (Heparin Sod 5,000 Unit/0.5 Ml Vial) 5,000 units SQ Q12 [facility] Stop: 01/28/22 20:59 Last Admin: 12/31/21 08:56 Dose: 5,000 units Hydralazine HCl (Hydralazine Tab 50 Mg Tab) 100 mg PO TID [facility] Stop: 01/20/22 20:59 Last Admin: 12/31/21 13:33 Dose: 100 mg Hydromorphone HCl (Hydromorphone Inj 0.5 Mg/0.5 Ml Syr) 0.5 mg IV Q8H PRN PRN Reason: Severe Pain Stop: 01/05/22 17:14 Last Admin: 12/23/21 22:13 Dose: 0.5 mg Hydroxyzine HCl (Hydroxyzine Hcl 25 Mg Tab) 25 mg PO Q8H PRN PRN Reason: anxiety Stop: 01/24/22 13:59 Last Admin: 12/25/21 23:13 Dose: 25 mg Labetalol HCl (Labetalol Hcl Iv 5 Mg/Ml 20ml) 10 mg IV Q4H PRN; Protocol PRN Reason: htn Stop: 01/20/22 18:27 Last Admin: 12/22/21 11:53 Dose: 10 mg Lactobacillus Acidophilus (Advanced Probiotic 1250 Mg Capsule) 2 cap PO DAILY [facility] Stop: 01/22/22 13:14 Last Admin: 12/31/21 08:54 Dose: 2 cap Loratadine (Loratadine 10 Mg Tab) 10 mg PO DAILY [facility] Stop: 01/21/22 08:59 Last Admin: 12/31/21 08:55 Dose: 10 mg Losartan Potassium (Losartan Potassium 50 Mg Tab) 100 mg PO DAILY [facility] Stop: 01/21/22 08:59 Last Admin: 12/31/21 08:54 Dose: 100 mg Miconazole Nitrate (Miconazole Nitrate Powder 43 Gm) 1 appln EXT PRN PRN PRN Reason: Affected Skin Folds Stop: 01/21/22 13:03 Last Admin: 12/24/21 08:43 Dose: 1 appln Famotidine (Zantac 360) Non-Form Patient's Own Med 1 each PO BID [facility] Stop: 01/27/22 20:59 Last Admin: 12/31/21 08:55 Dose: 20 mg Ondansetron HCl (Ondansetron Inj 2 Mg/Ml 2 Ml Vial) 4 mg IV Q6H PRN PRN Reason: Nausea And Vomiting Stop: 01/21/22 08:26 Last Admin: 12/31/21 01:40 Dose: 4 mg Pantoprazole Sodium (Pantoprazole 40 Mg Tab) 40 mg PO HS [facility] Stop: 01/20/22 20:59 Last Admin: 12/30/21 22:26 Dose: 40 mg Raspberry (Raspberry Syrup 5 Ml Udp) 5 ml PO Q6 [facility] Stop: 01/06/22 17:59 Last Admin: 12/31/21 13:33 Dose: 5 ml Tamsulosin HCl (Tamsulosin Hcl 0.4 Mg Cap) 0.4 mg PO QAM [facility] Stop: 01/20/22 18:27 Last Admin: 12/31/21 08:53 Dose: 0.4 mg Tramadol HCl (Tramadol Hcl 50 Mg Tablet) 25 mg PO Q6H PRN PRN Reason: Mild or moderate pain Stop: 01/21/22 17:13 Umeclidinium/Vilanterol (Umeclidinium/Vilanterol 62.5/25mcg 7 Puffs/Inhaler) 1 puffs INH DAILY [facility] Stop: 01/21/22 08:59 Last Admin: 12/31/21 08:57 Dose: 1 puffs Vancomycin HCl (Vancomycin Hcl 125 Mg/2.5ml Soln) 125 mg PO Q6 [facility] Stop: 01/06/22 17:59 Last Admin: 12/31/21 13:33 Dose: 125 mg
[2021-12-31] MEDS: PANTOprazole 40 MG TAB PO SCH (22:00)
[2021-12-31] MEDS: ALPRAZolam 0.5 MG TABLET PO PRN (22:09)
[2022-01-01] MEDS: ACETAMINOPHEN 325 MG TAB PO SCH ×4 (00:32→18:01)
[2022-01-01] MEDS: VANCOMYCIN HCL 125 MG/2.5ML SOLN PO SCH ×4 (00:32→18:02)
[2022-01-01] MEDS: RASPBERRY SYRUP 5 ML UDP PO SCH ×4 (00:33→18:02)
[2022-01-01 07:09] LABS: Basophils # (auto) 0.02 K/uL (0-0.2); Basophils % (auto) 0.3 %; Eosinophils # (auto) 0.37 K/uL (0-0.50); Eosinophils % (auto) 5.7 %; Hematocrit (blood only) 27.1 % (34.1-44.9); Immature Granulocytes # (auto) 0.31 K/uL (0.00-0.02); Immature Granulocytes % (auto) 4.8 %; Lymphocytes # (auto) 0.96 K/uL (1.2-3.4); Lymphocytes % (auto) 14.7 %; Mean Corpuscular Hemoglobin 28.6 pg (25.0-34.0); Mean Corpuscular Hgb Conc 29.5 g/dL (32.0-36.0); Mean Corpuscular Volume 96.8 fL (80.0-100.0); Mean Platelet Volume 9.4 fL (9.4-12.3); Monocytes # (auto) 0.71 K/uL (0.24-0.82); Monocytes % (auto) 10.9 %; Neutrophils # (auto) 4.15 K/uL (1.4-6.5); Neutrophils % (auto) 63.6 %; Platelet Count 325 K/uL (130-400); RDW Coefficient of Variation 14.4 % (11.5-14.5); RDW Standard Deviation 51.5 fL (36.4-46.3); White Blood Count 6.52 K/ul (4.8-10.8)
[2022-01-01 07:45] LABS: BUN Creatinine Ratio 18.4 (10-20); Calcium 8.3 mg/dl (8.5-10.1); Creatinine Clr Calc Pharmacy 31.1 ml/min; Est GFR (African American) 39.5 ml/min; Est GFR (Non-African American) 34.1 ml/min; Magnesium 1.6 mg/dl (1.7-2.4); Phosphorus 2.3 mg/dl (2.5-4.9); Potassium 4.1 mmol/L (3.5-5.1)
[2022-01-01] MEDS: ONDANSETRON INJ 2 MG/ML 2 ML VIAL IV PRN ×2 (07:54→16:48)
[2022-01-01] MEDS: LORATADINE 10 MG TAB PO SCH (07:56)
[2022-01-01] MEDS: FOLIC ACID 1 MG TAB PO SCH (07:56)
[2022-01-01] MEDS: ASPIRIN 81 MG ECTAB PO SCH (07:56)
[2022-01-01] MEDS: TAMSULOSIN HCL 0.4 MG CAP PO SCH (07:56)
[2022-01-01] MEDS: cloNIDine HCL 0.1 MG TAB PO SCH ×2 (07:56→22:20)
[2022-01-01] MEDS: [UNRECOGNIZED DRUG - REMARK] PO SCH ×2 (07:57→22:22)
[2022-01-01] MEDS: carvediloL 25 MG TAB PO SCH ×2 (07:58→22:19)
[2022-01-01] MEDS: CYANOCOBALAMIN (B-12) 100 MCG TABLET PO SCH (07:58)
[2022-01-01] MEDS: ADVANCED PROBIOTIC 1250 MG CAPSULE PO SCH (07:59)
[2022-01-01] MEDS: hydrALAZINE TAB 50 MG TAB PO SCH ×3 (07:59→22:20)
[2022-01-01] MEDS: LOSARTAN POTASSIUM 50 MG TAB PO SCH (07:59)
[2022-01-01] MEDS: UMECLIDINIUM/VILANTEROL 62.5/25MCG 7 PUFFS/INHALER INH SCH (10:27)
[2022-01-01] MEDS: HEPARIN SOD 5,000 UNIT/0.5 ML VIAL SQ SCH ×2 (10:28→22:20)
[2022-01-01] MEDS: POT PHOSPHATE MONOBASIC W/ SOD TAB PO SCH ×2 (10:35→22:22)
[2022-01-01] MEDS: MAGNESIUM OXIDE 400 MG TAB PO SCH ×2 (10:35→22:21)
--- NOTE | 2022-01-01 12:57 | Hospitalist Progress Note ---
Date of Service January 01, 2022 Assessment & Plan (1) Hydronephrosis concurrent with and due to calculi of kidney and ureter: Plan: Renal calculi Left mild hydronephrosis Last CT from 12/01/2021 with only 3 mm right nonobstructing nephrolithiasis. Admitting UA no s/o infection. Pt afebrile, c/w flomax, strain all urine, c/w pain management. Pt drowsy and sleepy likely 2/2 pain meds use, will cut down on opiates pain meds --> Tylenol scheduled, Tylenol 3 discontinued, hydromorphone every 8 hours as needed for severe pain, tramadol for mild to moderate pain as needed. Baseline creatinine around 1.6 upon outpatient chart review. Uro evaluated, status post cystoscopy and bilateral stent placement 12/24/2021. Patient will need outpatient follow-up with urology. Denies any urinary symptoms Weakness: Frequent falls: Rt hip OA CT abd noted age indeterminate impacted right femoral fracture but Pelvic XR w/ no fracture but has Rt hip moderate OA Ortho evaled, no Ix for now. f/u [facility] in 2 weeks. Pt uses a walker and wheelchair at home. PDMP reviewed. Patient has been on tylenol 3 and alprazolam for sometime. This may be contributing to falls too. PT/OT eval Fall precautions Cautious use of Xanax Has been accepted to [facility] Clinically much better and will be transferred to [facility] on Monday History of depression She has been on Remeron at nighttime She was getting Celexa which likely caused her to be more drowsy and not been participating in physical therapy Celexa has been discontinued and will restart Remeron She is clinically much improved today and likely to be transferred to [facility] on Monday (2) C. difficile colitis: Plan: Abdominal pain/nausea/poor appetite: Patient has been having this abdominal pain and nausea since 1 month [employer] per patient's daughter, patient had poor appetite since then. At baseline patient is not a great eater though. 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 Admitting CTAP with cyst [see above]. Patient does not drink alcohol. Pancreatic cyst: as in admitting CTAP. F/u w/ GI as OP. GI has been consulted, started PO vanco for possible C diff 10/10, patient does have loose stool, c diff gene positive but toxin negative. Pt ate some today, still with poor appetite, will hold IVF for concerns of fluid overload, assess in AM for fluid need if PO intake remains poor. Patient wouldn't want any kind of tube feeding/neither PEG tube nor Nasogastric tube. Still has abdominal discomfort with nausea without any vomiting and or diarrhea Will finish the course of oral vancomycin Denies any more diarrhea and does not have any more abdominal discomfort Plan 76 yo F with PMhx of HTN, HLD, COPD, Degenerative joint disease of right hip who presented 12/21 with repeated falls, weakness and generalized pain. She was recently admitted to [facility] for NANCY/rhabdomyolysis and falls from Dec 01- and was discharged home with health services.She is being managed for the following: Admitting imagings: CXR with cardiomegaly and without pulmonary edema. Trace pleural effusion with lateral right lung base opacities suggestive of atelectasis/scaring. CT head: No acute findings. C-spine CT: No acute findings. CTAP: Obstructing calculus/cluster of calculi in the left proximal ureter measuring up to 16 mm in length and causes mild left hydronephrosis. Nonobstructing calculi in the right kidney. Also there is pathologically indeterminant 4.1 cm ovoid cystic lesion in the distal pancreatic body which contains internal calcification/debris's. Nonemergent follow-up with GI for p ossible endoscopic ultrasound is recommended. Pelvic x-ray with moderate right hip osteoarthritis without acute fracture or dislocation. Left hip total joint arthroplasty with chronic revision changes noted. Elevated troponin: Hypertensive urgency: HTN (hypertension): BP 220/80-90 on admission Pt is compliant with medications at home per report, daughter is RN and manages her medications. Takes clonidine 0.2 mg BID, losartan 50 mg daily, carvedilol 12.5 mg BID, hydralazine 100 mg TID Losartan was increased to 100mg daily and carvedilol to 25mg bid on admission Blood pressure is reasonably controlled with current doses of medication Troponin elevated at 48.2, flat trended. May be related to elevated BP. Denies chest pain, c/t telemetry monitoring. Doubt any ACS Acute on chronic anemia: OP Chart review w/ baseline Hb of 9-10. Admitting hemoglobin of 8.3, dropped to 7.6 on 12/23. Transfuse for symptomatic anemia or hemoglobin less than 7. Iron profile with low iron and low normal ferritin B12/folate. Started supplements. P.o. iron tablet on hold, will use Venofer given nausea and poor appetite. Can resume PO iron once appetite improves. Electrolyte abnormality: Monitor and replete as appropriate. Other chronic medical conditions: HLD, COPD -->> continue with/resume home meds as and when appropriate. DVT prophylaxis: SCDs Re: acute on chronic anemia. We will start subcu heparin CODE STATUS: DNR/DNI PT/OT, CM to assist w/ dc planning. Expect DC in next few days with improvement of appetite and diarrhea. Likely to be discharged tomorrow Admission and Anticipated Discharge Date Admission Date: December 21, 2021 Subjective 12/29/2021 The patient was seen and examined in medical telemetry unit She was noted to be drowsy this morning with epigastric discomfort and nausea Denies any significant abdominal pain and her bowel has been moving Denies any chest pain and/or palpitation or shortness of breath No fever and or chills 12/30/2021 The patient was seen and examined in medical telemetry unit She has been a little better today but still remains weak and lethargic Does not want to participate in physical therapy Denies any significant symptoms 12/31/2021 The patient was seen and examined in medical telemetry unit She remains very weak and lethargic but a little brighter today Denies any significant symptoms She is willing to participate in physical therapy 01/01/2022 Patient was seen and examined in medical telemetry unit She has been feeling much better today and looks brighter Denies any nausea and or vomiting and has been tolerating diet She has been participating in physical therapy No more drowsiness Review of Systems Review of Systems: All systems reviewed and are unremarkable except as noted below Physical Exam Physical Exam: Lying in bed with minimal distress due to abdominal discomfort Constitutional: well developed, well nourished, + ill appearing and + obese Eyes: PERRL, conjunctivae normal, anicteric sclerae ENMT: external ear and nose normal, oropharynx normal Neck: trachea midline, no thyromegaly Respiratory: no respiratory distress Auscultation: + diminished lung sounds and + crackles (Minimal crackles at the bases) Cardiovascular: Rate/Rhythm: regular rate and regular rhythm; not tachycardic Heart Sounds: normal S1 and normal S2; no murmur Extremities: + edema (Trace edema bilaterally) Gastrointestinal (Abdomen): Inspection/Auscultation: normal bowel sounds; abdomen not distended Percussion/Palpation: + abdomen tender (Tender epigastrium) and abdomen soft Musculoskeletal: No acute arthritis in any joint Neurologic: Alert, awake and oriented. Lymphatic: no cervical or axillary lymphadenopathy Results & Data Results & Data ([facility]) Vital Signs (Past 12 Hours) Vital Signs Temp Pulse Resp BP BP Pulse Ox O2 Del Method 01/01/22 11:04 36.7 C 63 18 130/48 L 99 Room Air 01/01/22 10:56 Nasal Cannula 01/01/22 06:56 37.0 C 71 18 158/60 H 96 Nasal Cannula 01/01/22 04:00 36.7 C 63 18 132/72 97 Nasal Cannula O2 Flow Rate 01/01/22 11:04 3 01/01/22 10:56 3 01/01/22 06:56 3 01/01/22 04:00 3 Laboratory Results Short CBC 01/01/22 Range/Units 06:33 WBC 6.52 (4.8-10.8) K/ul Hgb 8.0 L (12.0-16.0) g/dl Hct 27.1 L (34.1-44.9) % Plt Count 325 (130-400) K/uL BMP 01/01/22 06:33 Sodium 144 Potassium 4.1 Chloride 111 H Carbon Dioxide 30 BUN 27 H Creatinine 1.47 H Glucose 108 H Calcium 8.3 L Medications Administered Current Inpatient Medications Acetaminophen (Acetaminophen 325 Mg Tab) 650 mg PO Q6 [facility] Stop: 01/21/22 13:59 Last Admin: 01/01/22 11:45 Dose: 650 mg Albuterol (Albuterol 0.083% Nebu Soln 3 Ml Vial) 2.5 mg INH Q4H PRN; Protocol PRN Reason: Shortness Of Breath Stop: 01/20/22 18:27 Alprazolam (Alprazolam 0.5 Mg Tablet) 0.5 mg PO HS PRN PRN Reason: Anxiety Stop: 01/20/22 18:51 Last Admin: 12/31/21 22:09 Dose: 0.5 mg Aspirin (Aspirin 81 Mg Ectab) 81 mg PO DAILY [facility] Stop: 01/21/22 08:59 Last Admin: 01/01/22 07:56 Dose: 81 mg Carvedilol (Carvedilol 25 Mg Tab) 25 mg PO BID [facility] Stop: 01/20/22 20:59 Last Admin: 01/01/22 07:58 Dose: 25 mg Clonidine HCl (Clonidine Hcl 0.1 Mg Tab) 0.2 mg PO BID [facility] Stop: 01/21/22 20:59 Last Admin: 01/01/22 07:56 Dose: 0.2 mg Cyanocobalamin (Cyanocobalamin (B-12) 100 Mcg Tablet) 100 mcg PO QAM [facility] Stop: 01/23/22 17:29 Last Admin: 01/01/22 07:58 Dose: 100 mcg Ergocalciferol (Ergocalciferol 50,000 Units 1250 Mcg Cap) 50,000 units PO Dobson@2100 [facility] Stop: 01/25/22 20:59 Last Admin: 12/26/21 21:22 Dose: 50,000 units Ferrous Gluconate (Ferrous Gluconate 324 Mg Tab) 324 mg PO QAM [facility] Stop: 01/24/22 08:59 Last Admin: 12/26/21 07:50 Dose: 324 mg Folic Acid (Folic Acid 1 Mg Tab) 1 mg PO QAM [facility] Stop: 01/23/22 17:29 Last Admin: 01/01/22 07:56 Dose: 1 mg Heparin Sodium (Porcine) (Heparin Sod 5,000 Unit/0.5 Ml Vial) 5,000 units SQ Q12 [facility] Stop: 01/28/22 20:59 Last Admin: 01/01/22 10:28 Dose: 5,000 units Hydralazine HCl (Hydralazine Tab 50 Mg Tab) 100 mg PO TID [facility] Stop: 01/20/22 20:59 Last Admin: 01/01/22 07:59 Dose: 100 mg Hydromorphone HCl (Hydromorphone Inj 0.5 Mg/0.5 Ml Syr) 0.5 mg IV Q8H PRN PRN Reason: Severe Pain Stop: 01/05/22 17:14 Last Admin: 12/23/21 22:13 Dose: 0.5 mg Hydroxyzine HCl (Hydroxyzine Hcl 25 Mg Tab) 25 mg PO Q8H PRN PRN Reason: anxiety Stop: 01/24/22 13:59 Last Admin: 12/25/21 23:13 Dose: 25 mg Labetalol HCl (Labetalol Hcl Iv 5 Mg/Ml 20ml) 10 mg IV Q4H PRN; Protocol PRN Reason: htn Stop: 01/20/22 18:27 Last Admin: 12/22/21 11:53 Dose: 10 mg Lactobacillus Acidophilus (Advanced Probiotic 1250 Mg Capsule) 2 cap PO DAILY [facility] Stop: 01/22/22 13:14 Last Admin: 01/01/22 07:59 Dose: 2 cap Loratadine (Loratadine 10 Mg Tab) 10 mg PO DAILY [facility] Stop: 01/21/22 08:59 Last Admin: 01/01/22 07:56 Dose: 10 mg Losartan Potassium (Losartan Potassium 50 Mg Tab) 100 mg PO DAILY [facility] Stop: 01/21/22 08:59 Last Admin: 01/01/22 07:59 Dose: 100 mg Magnesium Oxide (Magnesium Oxide 400 Mg Tab) 400 mg PO BID [facility] Stop: 01/31/22 08:59 Last Admin: 01/01/22 10:35 Dose: 400 mg Miconazole Nitrate (Miconazole Nitrate Powder 43 Gm) 1 appln EXT PRN PRN PRN Reason: Affected Skin Folds Stop: 01/21/22 13:03 Last Admin: 12/24/21 08:43 Dose: 1 appln Mirtazapine (Mirtazapine Tab 15 Mg Tab) 30 mg PO HS [facility] Stop: 01/31/22 20:59 Famotidine (Zantac 360) Non-Form Patient's Own Med 1 each PO BID [facility] Stop: 01/27/22 20:59 Last Admin: 01/01/22 07:57 Dose: 20 mg Ondansetron HCl (Ondansetron Inj 2 Mg/Ml 2 Ml Vial) 4 mg IV Q6H PRN PRN Reason: Nausea And Vomiting Stop: 01/21/22 08:26 Last Admin: 01/01/22 07:54 Dose: 4 mg Pantoprazole Sodium (Pantoprazole 40 Mg Tab) 40 mg PO HS [facility]AS Stop: 01/20/22 20:59 Last Admin: 12/31/21 22:00 Dose: 40 mg Potassium Phosphate (Pot Phosphate Monobasic W/ Sod Tab) 2 tab PO BID [facility] Stop: 01/31/22 08:59 Last Admin: 01/01/22 10:35 Dose: 2 tab Raspberry (Raspberry Syrup 5 Ml Udp) 5 ml PO Q6 [facility] Stop: 01/06/22 17:59 Last Admin: 01/01/22 11:45 Dose: 5 ml Tamsulosin HCl (Tamsulosin Hcl 0.4 Mg Cap) 0.4 mg PO QAM [facility] Stop: 01/20/22 18:27 Last Admin: 01/01/22 07:56 Dose: 0.4 mg Tramadol HCl (Tramadol Hcl 50 Mg Tablet) 25 mg PO Q6H PRN PRN Reason: Mild or moderate pain Stop: 01/21/22 17:13 Umeclidinium/Vilanterol (Umeclidinium/Vilanterol 62.5/25mcg 7 Puffs/Inhaler) 1 puffs INH DAILY [facility] Stop: 01/21/22 08:59 Last Admin: 01/01/22 10:27 Dose: 1 puffs Vancomycin HCl (Vancomycin Hcl 125 Mg/2.5ml Soln) 125 mg PO Q6 [facility] Stop: 01/06/22 17:59 Last Admin: 01/01/22 11:45 Dose: 125 mg
[2022-01-01] MEDS ORDERED: MIRTAZAPINE TAB 15 MG TAB PO SCH (21:00)
[2022-01-01] MEDS: ALPRAZolam 0.5 MG TABLET PO PRN (22:17)
[2022-01-01] MEDS: PANTOprazole 40 MG TAB PO SCH (22:23)
[2022-01-02] MEDS: RASPBERRY SYRUP 5 ML UDP PO SCH ×5 (00:17→18:40)
[2022-01-02] MEDS: ACETAMINOPHEN 325 MG TAB PO SCH ×5 (00:17→18:40)
[2022-01-02] MEDS: VANCOMYCIN HCL 125 MG/2.5ML SOLN PO SCH ×5 (00:17→18:40)
[2022-01-02 00:57] LABS: HCO3 ABG 31 mmol/L (19-24); Oxygen Saturation ABG 98.4 % (90-95); PCO2 ABG 53 mmHg (35-46); PO2 ABG 122 mmHg (80-95); pH ABG 7.37 (7.35-7.45)
[2022-01-02 00:58] LABS: Allen Test POS (Pos)
[2022-01-02] MEDS: POT PHOSPHATE MONOBASIC W/ SOD TAB PO SCH ×2 (11:14→20:55)
[2022-01-02] MEDS: carvediloL 25 MG TAB PO SCH ×2 (11:16→20:58)
[2022-01-02] MEDS: cloNIDine HCL 0.1 MG TAB PO SCH ×2 (11:16→20:58)
[2022-01-02] MEDS: hydrALAZINE TAB 50 MG TAB PO SCH ×3 (11:17→20:59)
[2022-01-02] MEDS: CYANOCOBALAMIN (B-12) 100 MCG TABLET PO SCH (11:20)
[2022-01-02] MEDS: ADVANCED PROBIOTIC 1250 MG CAPSULE PO SCH (11:20)
[2022-01-02] MEDS: FOLIC ACID 1 MG TAB PO SCH (11:21)
[2022-01-02] MEDS: MAGNESIUM OXIDE 400 MG TAB PO SCH ×2 (11:32→20:59)
[2022-01-02] MEDS: ASPIRIN 81 MG ECTAB PO SCH (11:34)
[2022-01-02] MEDS: LOSARTAN POTASSIUM 50 MG TAB PO SCH (11:34)
[2022-01-02] MEDS: [UNRECOGNIZED DRUG - REMARK] PO SCH ×2 (11:39→20:56)
[2022-01-02] MEDS: UMECLIDINIUM/VILANTEROL 62.5/25MCG 7 PUFFS/INHALER INH SCH (11:40)
[2022-01-02] MEDS: LORATADINE 10 MG TAB PO SCH (11:42)
[2022-01-02] MEDS: TAMSULOSIN HCL 0.4 MG CAP PO SCH (11:42)
[2022-01-02] MEDS: HEPARIN SOD 5,000 UNIT/0.5 ML VIAL SQ SCH ×2 (11:43→21:04)
--- NOTE | 2022-01-02 12:15 | Hospitalist Progress Note ---
Date of Service January 02, 2022 Assessment & Plan (1) Hydronephrosis concurrent with and due to calculi of kidney and ureter: Plan: Renal calculi Left mild hydronephrosis Last CT from 12/01/2021 with only 3 mm right nonobstructing nephrolithiasis. Admitting UA no s/o infection. Pt afebrile, c/w flomax, strain all urine, c/w pain management. Pt drowsy and sleepy likely 2/2 pain meds use, will cut down on opiates pain meds --> Tylenol scheduled, Tylenol 3 discontinued, hydromorphone every 8 hours as needed for severe pain, tramadol for mild to moderate pain as needed. Baseline creatinine around 1.6 upon outpatient chart review. Uro evaluated, status post cystoscopy and bilateral stent placement 12/24/2021. Patient will need outpatient follow-up with urology. Signs and or symptoms of infection Denies any pain and remains medically stable Weakness: Frequent falls: Rt hip OA CT abd noted age indeterminate impacted right femoral fracture but Pelvic XR w/ no fracture but has Rt hip moderate OA Ortho evaled, no Ix for now. f/u [facility] in 2 weeks. Pt uses a walker and wheelchair at home. PDMP reviewed. Patient has been on tylenol 3 and alprazolam for sometime. This may be contributing to falls too. PT/OT eval Fall precautions Cautious use of Xanax Has been accepted to [facility] Doing well with physical therapy and likely to be transferred tomorrow to [facility] History of depression She has been on Remeron at nighttime She was getting Celexa which likely caused her to be more drowsy and not been participating in physical therapy Celexa has been discontinued and will restart Remeron Remeron has been restarted and the patient remained stable (2) C. difficile colitis: Plan: Abdominal pain/nausea/poor appetite: Patient has been having this abdominal pain and nausea since 1 month [employer] per patient's daughter, patient had poor appetite since then. At baseline patient is not a great eater though. 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 Admitting CTAP with cyst [see above]. Patient does not drink alcohol. Pancreatic cyst: as in admitting CTAP. F/u w/ GI as OP. GI has been consulted, started PO vanco for possible C diff /, patient does have loose stool, c diff gene positive but toxin negative. Pt ate some today, still with poor appetite, will hold IVF for concerns of fluid overload, assess in AM for fluid need if PO intake remains poor. Patient wouldn't want any kind of tube feeding/neither PEG tube nor Nasogastric tube. Still has abdominal discomfort with nausea without any vomiting and or diarrhea Will finish the course of oral vancomycin Denies any more diarrhea and does not have any more abdominal discomfort Plan 76 yo F with PMhx of HTN, HLD, COPD, Degenerative joint disease of right hip who presented 12/21 with repeated falls, weakness and generalized pain. She was recently admitted to [facility] for NANCY/rhabdomyolysis and falls from Dec 01- and was discharged home with health services.She is being managed for the following: Admitting imagings: CXR with cardiomegaly and without pulmonary edema. Trace pleural effusion with lateral right lung base opacities suggestive of atelectasis/scaring. CT head: No acute findings. C-spine CT: No acute findings. CTAP: Obstructing calculus/cluster of calculi in the left proximal ureter measuring up to 16 mm in length and causes mild left hydronephrosis. Nonobstructing calculi in the right kidney. Also there is pathologically indeterminant 4.1 cm ovoid cystic lesion in the distal pancreatic body which contains internal calcification/debris's. Nonemergent follow-up with GI for possible endoscopic ultrasound is recommended. Pelvic x-ray with moderate right hip osteoarthritis without acute fracture or dislocation. Left hip total joint arthroplasty with chronic revision changes noted. Elevated troponin: Hypertensive urgency: HTN (hypertension): BP 220/80-90 on admission Pt is compliant with medications at home per report, daughter is RN and manages her medications. Takes clonidine 0.2 mg BID, losartan 50 mg daily, carvedilol 12.5 mg BID, hydralazine 100 mg TID Losartan was increased to 100mg daily and carvedilol to 25mg bid on admission Blood pressure is reasonably controlled with current doses of medication Troponin elevated at 48.2, flat trended. May be related to elevated BP. Denies chest pain, c/t telemetry monitoring. Doubt any ACS Acute on chronic anemia: OP Chart review w/ baseline Hb of 9-10. Admitting hemoglobin of 8.3, dropped to 7.6 on 12/23. Transfuse for symptomatic anemia or hemoglobin less than 7. Iron profile with low iron and low normal ferritin B12/folate. Started supplements. P.o. iron tablet on hold, will use Venofer given nausea and poor appetite. Can resume PO iron once appetite improves. We will check hemoglobin tomorrow Electrolyte abnormality: Monitor and replete as appropriate. Other chronic medical conditions: HLD, COPD -->> continue with/resume home meds as and when appropriate. DVT prophylaxis: SCDs Re: acute on chronic anemia. We will start subcu heparin CODE STATUS: DNR/DNI PT/OT, CM to assist w/ dc planning. Expect DC in next few days with improvement of appetite and diarrhea. Likely to be discharged tomorrow Admission and Anticipated Discharge Date Admission Date: December 21, 2021 Subjective 12/29/2021 The patient was seen and examined in medical telemetry unit She was noted to be drowsy this morning with epigastric discomfort and nausea Denies any significant abdominal pain and her bowel has been moving Denies any chest pain and/or palpitation or shortness of breath No fever and or chills 12/30/2021 The patient was seen and examined in medical telemetry unit She has been a little better today but still remains weak and lethargic Does not want to participate in physical therapy Denies any significant symptoms 12/31/2021 The patient was seen and examined in medical telemetry unit She remains very weak and lethargic but a little brighter today Denies any significant symptoms She is willing to participate in physical therapy 01/01/2022 Patient was seen and examined in medical telemetry unit She has been feeling much better today and looks brighter Denies any nausea and or vomiting and has been tolerating diet She has been participating in physical therapy No more drowsiness 01/02/2022 Patient was seen and examined in medical telemetry unit She has been feeling much better and denies any significant symptoms Denies any more abdominal pain, nausea and or vomiting She has been getting physical therapy and will likely be transferred to tomorrow Review of Systems Review of Systems: All systems reviewed and are unremarkable except as noted below Physical Exam Physical Exam: Lying in bed with minimal distress due to abdominal discomfort Constitutional: well developed, well nourished, + ill appearing and + obese Eyes: PERRL, conjunctivae normal, anicteric sclerae ENMT: external ear and nose normal, oropharynx normal Neck: trachea midline, no thyromegaly Respiratory: no respiratory distress Auscultation: + diminished lung sounds and + crackles (Minimal crackles at the bases) Cardiovascular: Rate/Rhythm: regular rate and regular rhythm; not tachycardic Heart Sounds: normal S1 and normal S2; no murmur Extremities: + edema (Trace edema bilaterally) Gastrointestinal (Abdomen): Inspection/Auscultation: normal bowel sounds; abdomen not distended Percussion/Palpation: + abdomen tender (Tender epigastrium) and abdomen soft Musculoskeletal: No acute arthritis in any joint Neurologic: Alert and awake. Generally weak and lethargic Lymphatic: no cervical or axillary lymphadenopathy Results & Data Results & Data ([facility]) Vital Signs (Past 12 Hours) Vital Signs Temp Pulse Pulse Pulse Resp BP BP 01/02/22 11:53 36.8 C 75 179/62 H 01/02/22 08:00 36.5 C 76 16 162/68 H 01/02/22 08:00 01/02/22 08:00 01/02/22 08:00 36.7 C 66 18 184/61 H 01/02/22 07:16 67 01/02/22 04:00 36.6 C 55 L 18 165/66 H Pulse Ox Pulse Ox O2 Del Method O2 Del Method O2 Flow Rate 01/02/22 11:53 98 Nasal Cannula 01/02/22 08:00 97 Nasal Cannula 01/02/22 08:00 97 Nasal Cannula 01/02/22 08:00 97 Nasal Cannula 01/02/22 08:00 98 Nasal Cannula 2 01/02/22 07:16 01/02/22 04:00 95 Nasal Cannula 2 Medications Administered Current Inpatient Medications Acetaminophen (Acetaminophen 325 Mg Tab) 650 mg PO Q6 [facility] Stop: 01/21/22 13:59 Last Admin: 01/02/22 11:18 Dose: 650 mg Albuterol (Albuterol 0.083% Nebu Soln 3 Ml Vial) 2.5 mg INH Q4H PRN; Protocol PRN Reason: Shortness Of Breath Stop: 01/20/22 18:27 Alprazolam (Alprazolam 0.5 Mg Tablet) 0.5 mg PO HS PRN PRN Reason: Anxiety Stop: 01/20/22 18:51 Last Admin: 01/01/22 22:17 Dose: 0.5 mg Aspirin (Aspirin 81 Mg Ectab) 81 mg PO DAILY [facility] Stop: 01/21/22 08:59 Last Admin: 01/02/22 11:34 Dose: 81 mg Carvedilol (Carvedilol 25 Mg Tab) 25 mg PO BID [facility] Stop: 01/20/22 20:59 Last Admin: 01/02/22 11:16 Dose: 25 mg Clonidine HCl (Clonidine Hcl 0.1 Mg Tab) 0.2 mg PO BID [facility] Stop: 01/21/22 20:59 Last Admin: 01/02/22 11:16 Dose: 0.2 mg Cyanocobalamin (Cyanocobalamin (B-12) 100 Mcg Tablet) 100 mcg PO QAM [facility] Stop: 01/23/22 17:29 Last Admin: 01/02/22 11:20 Dose: 100 mcg Ergocalciferol (Ergocalciferol 50,000 Units 1250 Mcg Cap) 50,000 units PO Dobson@2100 [facility] Stop: 01/25/22 20:59 Last Admin: 12/26/21 21:22 Dose: 50,000 units Ferrous Gluconate (Ferrous Gluconate 324 Mg Tab) 324 mg PO QAM [facility] Stop: 01/24/22 08:59 Last Admin: 12/26/21 07:50 Dose: 324 mg Folic Acid (Folic Acid 1 Mg Tab) 1 mg PO QAM [facility] Stop: 01/23/22 17:29 Last Admin: 01/02/22 11:21 Dose: 1 mg Heparin Sodium (Porcine) (Heparin Sod 5,000 Unit/0.5 Ml Vial) 5,000 units SQ Q12 [facility] Stop: 01/28/22 20:59 Last Admin: 01/02/22 11:43 Dose: 5,000 units Hydralazine HCl (Hydralazine Tab 50 Mg Tab) 100 mg PO TID [facility] Stop: 01/20/22 20:59 Last Admin: 01/02/22 11:17 Dose: 100 mg Hydromorphone HCl (Hydromorphone Inj 0.5 Mg/0.5 Ml Syr) 0.5 mg IV Q8H PRN PRN Reason: Severe Pain Stop: 01/05/22 17:14 Last Admin: 12/23/21 22:13 Dose: 0.5 mg Hydroxyzine HCl (Hydroxyzine Hcl 25 Mg Tab) 25 mg PO Q8H PRN PRN Reason: anxiety Stop: 01/24/22 13:59 Last Admin: 12/25/21 23:13 Dose: 25 mg Labetalol HCl (Labetalol Hcl Iv 5 Mg/Ml 20ml) 10 mg IV Q4H PRN; Protocol PRN Reason: htn Stop: 01/20/22 18:27 Last Admin: 12/22/21 11:53 Dose: 10 mg Lactobacillus Acidophilus (Advanced Probiotic 1250 Mg Capsule) 2 cap PO DAILY [facility] Stop: 01/22/22 13:14 Last Admin: 01/02/22 11:20 Dose: 2 cap Loratadine (Loratadine 10 Mg Tab) 10 mg PO DAILY [facility] Stop: 01/21/22 08:59 Last Admin: 01/02/22 11:42 Dose: 10 mg Losartan Potassium (Losartan Potassium 50 Mg Tab) 100 mg PO DAILY [facility] Stop: 01/21/22 08:59 Last Admin: 01/02/22 11:34 Dose: 100 mg Magnesium Oxide (Magnesium Oxide 400 Mg Tab) 400 mg PO BID [facility] Stop: 01/31/22 08:59 Last Admin: 01/02/22 11:32 Dose: 400 mg Miconazole Nitrate (Miconazole Nitrate Powder 43 Gm) 1 appln EXT PRN PRN PRN Reason: Affected Skin Folds Stop: 01/21/22 13:03 Last Admin: 12/24/21 08:43 Dose: 1 appln Mirtazapine (Mirtazapine Tab 15 Mg Tab) 30 mg PO HS [facility] Stop: 01/31/22 20:59 Last Admin: 01/01/22 22:21 Dose: 30 mg Famotidine (Zantac 360) Non-Form Patient's Own Med 1 each PO BID [facility] Stop: 01/27/22 20:59 Last Admin: 01/02/22 11:39 Dose: 20 mg Ondansetron HCl (Ondansetron Inj 2 Mg/Ml 2 Ml Vial) 4 mg IV Q6H PRN PRN Reason: Nausea And Vomiting Stop: 01/21/22 08:26 Last Admin: 01/01/22 16:48 Dose: 4 mg Pantoprazole Sodium (Pantoprazole 40 Mg Tab) 40 mg PO HS [facility] Stop: 01/20/22 20:59 Last Admin: 01/01/22 22:23 Dose: 40 mg Potassium Phosphate (Pot Phosphate Monobasic W/ Sod Tab) 2 tab PO BID [facility] Stop: 01/31/22 08:59 Last Admin: 01/02/22 11:14 Dose: 2 tab Raspberry (Raspberry Syrup 5 Ml Udp) 5 ml PO Q6 [facility] Stop: 01/06/22 17:59 Last Admin: 01/02/22 05:43 Dose: 5 ml Tamsulosin HCl (Tamsulosin Hcl 0.4 Mg Cap) 0.4 mg PO QAM [facility] Stop: 01/20/22 18:27 Last Admin: 01/02/22 11:42 Dose: 0.4 mg Tramadol HCl (Tramadol Hcl 50 Mg Tablet) 25 mg PO Q6H PRN PRN Reason: Mild or moderate pain Stop: 01/21/22 17:13 Umeclidinium/Vilanterol (Umeclidinium/Vilanterol 62.5/25mcg 7 Puffs/Inhaler) 1 puffs INH DAILY [facility] Stop: 01/21/22 08:59 Last Admin: 01/02/22 11:40 Dose: 1 puffs Vancomycin HCl (Vancomycin Hcl 125 Mg/2.5ml Soln) 125 mg PO Q6 [facility] Stop: 01/06/22 17:59 Last Admin: 01/02/22 05:43 Dose: 125 mg
[2022-01-02] MEDS: ONDANSETRON INJ 2 MG/ML 2 ML VIAL IV PRN (15:35)
[2022-01-02] MEDS: ERGOCALCIFEROL 50,000 UNITS 1250 MCG CAP PO SCH (20:57)
[2022-01-02] MEDS: PANTOprazole 40 MG TAB PO SCH (20:58)
[2022-01-03] MEDS: ACETAMINOPHEN 325 MG TAB PO SCH ×3 (00:05→13:16)
[2022-01-03] MEDS: RASPBERRY SYRUP 5 ML UDP PO SCH ×3 (00:05→13:16)
[2022-01-03] MEDS: VANCOMYCIN HCL 125 MG/2.5ML SOLN PO SCH ×3 (00:15→13:18)
[2022-01-03] MEDS: LABETALOL HCL IV 5 MG/ML 20ML IV PRN (06:18)
[2022-01-03 07:07] LABS: Basophils # (auto) 0.01 K/uL (0-0.2); Basophils % (auto) 0.2 %; Eosinophils # (auto) 0.19 K/uL (0-0.50); Eosinophils % (auto) 3.4 %; Hematocrit (blood only) 26.8 % (34.1-44.9); Immature Granulocytes # (auto) 0.18 K/uL (0.00-0.02); Immature Granulocytes % (auto) 3.2 %; Lymphocytes # (auto) 0.83 K/uL (1.2-3.4); Lymphocytes % (auto) 14.8 %; Mean Corpuscular Hgb Conc 29.9 g/dL (32.0-36.0); Mean Corpuscular Volume 93.7 fL (80.0-100.0); Mean Platelet Volume 9.2 fL (9.4-12.3); Monocytes # (auto) 0.81 K/uL (0.24-0.82); Monocytes % (auto) 14.5 %; Neutrophils # (auto) 3.57 K/uL (1.4-6.5); Neutrophils % (auto) 63.9 %; Platelet Count 377 K/uL (130-400); RDW Coefficient of Variation 14.6 % (11.5-14.5); RDW Standard Deviation 50.6 fL (36.4-46.3); Red Blood Count 2.86 M/uL (3.93-5.22); White Blood Count 5.59 K/ul (4.8-10.8)
[2022-01-03 07:28] LABS: BUN Creatinine Ratio 16.2 (10-20); Creatinine Clr Calc Pharmacy 31.6 ml/min; Est GFR (African American) 39.2 ml/min; Est GFR (Non-African American) 33.8 ml/min; Magnesium 1.8 mg/dl (1.7-2.4); Phosphorus 3.5 mg/dl (2.5-4.9); Potassium 3.9 mmol/L (3.5-5.1)
[2022-01-03] MEDS: LORATADINE 10 MG TAB PO SCH (08:35)
[2022-01-03] MEDS: FOLIC ACID 1 MG TAB PO SCH (08:35)
[2022-01-03] MEDS: POT PHOSPHATE MONOBASIC W/ SOD TAB PO SCH (08:35)
[2022-01-03] MEDS: ADVANCED PROBIOTIC 1250 MG CAPSULE PO SCH (08:35)
[2022-01-03] MEDS: [UNRECOGNIZED DRUG - REMARK] PO SCH (08:36)
[2022-01-03] MEDS: CYANOCOBALAMIN (B-12) 100 MCG TABLET PO SCH (08:36)
[2022-01-03] MEDS: LOSARTAN POTASSIUM 50 MG TAB PO SCH (08:37)
[2022-01-03] MEDS: UMECLIDINIUM/VILANTEROL 62.5/25MCG 7 PUFFS/INHALER INH SCH (08:37)
[2022-01-03] MEDS: ASPIRIN 81 MG ECTAB PO SCH (08:38)
[2022-01-03] MEDS: TAMSULOSIN HCL 0.4 MG CAP PO SCH (08:38)
[2022-01-03] MEDS: cloNIDine HCL 0.1 MG TAB PO SCH (08:38)
[2022-01-03] MEDS: carvediloL 25 MG TAB PO SCH (08:38)
[2022-01-03] MEDS: HEPARIN SOD 5,000 UNIT/0.5 ML VIAL SQ SCH (08:39)
[2022-01-03] MEDS: hydrALAZINE TAB 50 MG TAB PO SCH ×2 (08:39→14:38)
[2022-01-03] MEDS: MAGNESIUM OXIDE 400 MG TAB PO SCH (13:17)
--- NOTE | 2022-01-03 15:26 | Hospitalist Progress Note ---
Date of Service January 03, 2022 Assessment & Plan (1) Hydronephrosis concurrent with and due to calculi of kidney and ureter: Plan: Renal calculi Left mild hydronephrosis Last CT from 12/01/2021 with only 3 mm right nonobstructing nephrolithiasis. Admitting UA no s/o infection. Pt afebrile, c/w flomax, strain all urine, c/w pain management. Pt drowsy and sleepy likely 2/2 pain meds use, will cut down on opiates pain meds --> Tylenol scheduled, Tylenol 3 discontinued, hydromorphone every 8 hours as needed for severe pain, tramadol for mild to moderate pain as needed. Baseline creatinine around 1.6 upon outpatient chart review. Uro evaluated, status post cystoscopy and bilateral stent placement 12/24/2021. Patient will need outpatient follow-up with urology. Signs and or symptoms of infection Denies any pain and remains medically stable Denies any significant symptoms at rest Weakness: Frequent falls: Rt hip OA CT abd noted age indeterminate impacted right femoral fracture but Pelvic XR w/ no fracture but has Rt hip moderate OA Ortho evaled, no Ix for now. f/u [facility] in 2 weeks. Pt uses a walker and wheelchair at home. PDMP reviewed. Patient has been on tylenol 3 and alprazolam for sometime. This may be contributing to falls too. PT/OT eval Fall precautions Cautious use of Xanax Has been accepted to [facility] Out of bed on a chair and will be transferred to [facility] this afternoon History of depression She has been on Remeron at nighttime She was getting Celexa which likely caused her to be more drowsy and not been participating in physical therapy Celexa has been discontinued and will restart Remeron Remeron has been restarted and the patient remained stable Remeron has been working (2) C. difficile colitis: Plan: Abdominal pain/nausea/poor appetite: Patient has been having this abdominal pain and nausea since 1 month [employer] per patient's daughter, patient had poor appetite since then. At baseline patient is not a great eater though. 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 Admitting CTAP with cyst [see above]. Patient does not drink alcohol. Pancreatic cyst: as in admitting CTAP. F/u w/ GI as OP. GI has been consulted, started PO vanco for possible C diff 12/27, patient does have loose stool, c diff gene positive but toxin negative. Pt ate some today, still with poor appetite, will hold IVF for concerns of fluid overload, assess in AM for fluid need if PO intake remains poor. Patient wouldn't want any kind of tube feeding/neither PEG tube nor Nasogastric tube. Still has abdominal discomfort with nausea without any vomiting and or diarrhea Will finish the course of oral vancomycin Denies any more diarrhea and does not have any more abdominal discomfort Will finish the course of vancomycin Plan 76 yo F with PMhx of HTN, HLD, COPD, Degenerative joint disease of right hip who presented 12/21 with repeated falls, weakness and generalized pain. She was recently admitted to [facility] for NANCY/rhabdomyolysis and falls from Dec 01- and was discharged home with health services.She is being managed for the following: Admitting imagings: CXR with cardiomegaly and without pulmonary edema. Trace pleural effusion with lateral right lung base opacities suggestive of atelectasis/scaring. CT head: No acute findings. C-spine CT: No acute findings. CTAP: Obstructing calculus/cluster of calculi in the left proximal ureter measuring up to 16 mm in length and causes mild left hydronephrosis. Nonobstructing calculi in the right kidney. Also there is pathologically indeterminant 4.1 cm ovoid cystic lesion in the distal pancreatic body which contains internal calcification/debris's. Nonemergent follow-up with GI for possible endoscopic ultrasound is recommended. Pelvic x-ray with moderate right hip osteoarthritis without acute fracture or dislocation. Left hip total joint arthroplasty with chronic revision changes noted. Elevated troponin: Hypertensive urgency: HTN (hypertension): BP 220/80-90 on admission Pt is compliant with medications at home per report, daughter is RN and manages her medications. Takes clonidine 0.2 mg BID, losartan 50 mg daily, carvedilol 12.5 mg BID, hydralazine 100 mg TID Losartan was increased to 100mg daily and carvedilol to 25mg bid on admission Blood pressure is reasonably controlled with current doses of medication No cardiac symptoms Troponin elevated at 48.2, flat trended. May be related to elevated BP. Denies chest pain, c/t telemetry monitoring. Doubt any ACS Acute on chronic anemia: OP Chart review w/ baseline Hb of 9-10. Admitting hemoglobin of 8.3, dropped to 7.6 on 12/23. Transfuse for symptomatic anemia or hemoglobin less than 7. Iron profile with low iron and low normal ferritin B12/folate. Started supplements. P.o. iron tablet on hold, will use Venofer given nausea and poor appetite. Can resume PO iron once appetite improves. We will check hemoglobin tomorrow Hemoglobin remains stable at 8.0 as of 01/03/2022 Electrolyte abnormality: Monitor and replete as appropriate. Other chronic medical conditions: HLD, COPD -->> continue with/resume home meds as and when appropriate. DVT prophylaxis: SCDs Re: acute on chronic anemia. We will start subcu heparin CODE STATUS: DNR/DNI PT/OT, CM to assist w/ dc planning. Expect DC in next few days with improvement of appetite and diarrhea. Discharged to [facility] this afternoon Admission and Anticipated Discharge Date Admission Date: December 21, 2021 Subjective 12/29/2021 The patient was seen and examined in medical telemetry unit She was noted to be drowsy this morning with epigastric discomfort and nausea Denies any significant abdominal pain and her bowel has been moving Denies any chest pain and/or palpitation or shortness of breath No fever and or chills 12/30/2021 The patient was seen and examined in medical telemetry unit She has been a little better today but still remains weak and lethargic Does not want to participate in physical therapy Denies any significant symptoms 12/31/2021 The patient was seen and examined in medical telemetry unit She remains very weak and lethargic but a little brighter today Denies any significant symptoms She is willing to participate in physical therapy 01/01/2022 Patient was seen and examined in medical telemetry unit She has been feeling much better today and looks brighter Denies any nausea and or vomiting and has been tolerating diet She has been participating in physical therapy No more drowsiness 01/02/2022 Patient was seen and examined in medical telemetry unit She has been feeling much better and denies any significant symptoms Denies any more abdominal pain, nausea and or vomiting She has been getting physical therapy and will likely be transferred to [facility] tomorrow 01/03/2022 The patient was seen and examined in medical telemetry unit She has been out of bed on a chair Has been feeling much better and will be transferred to [facility] this afternoon Review of Systems Review of Systems: All systems reviewed and are unremarkable except as noted below Physical Exam Physical Exam: Lying in bed with minimal distress due to abdominal discomfort Constitutional: well developed, well nourished, + ill appearing and + obese Eyes: PERRL, conjunctivae normal, anicteric sclerae ENMT: external ear and nose normal, oropharynx normal Neck: trachea midline, no thyromegaly Respiratory: no respiratory distress Auscultation: + diminished lung sounds and + crackles (Minimal crackles at the bases) Cardiovascular: Rate/Rhythm: regular rate and regular rhythm; not tachycardic Heart Sounds: normal S1 and normal S2; no murmur Extremities: + edema (Trace edema bilaterally) Gastrointestinal (Abdomen): Inspection/Auscultation: normal bowel sounds; abdomen not distended Percussion/Palpation: + abdomen tender (Tender epigastrium) and abdomen soft Musculoskeletal: No acute arthritis in any joint Neurologic: Alert, awake. Generally weak Lymphatic: no cervical or axillary lymphadenopathy Results & Data Results & Data ([facility]) Vital Signs (Past 12 Hours) Vital Signs Temp Pulse Pulse Resp BP BP Pulse Ox 01/03/22 14:55 37.0 C 64 20 168/55 H 98 01/03/22 08:00 01/03/22 07:46 71 01/03/22 07:20 37.1 C 71 20 175/60 H 96 01/03/22 03:59 37.0 C 71 18 172/61 H 96 O2 Del Method O2 Flow Rate 01/03/22 14:55 Nasal Cannula 2 01/03/22 08:00 Nasal Cannula 3 01/03/22 07:46 01/03/22 07:20 Nasal Cannula 2 01/03/22 03:59 3 Laboratory Results Short CBC 01/03/22 Range/Units 06:40 WBC 5.59 (4.8-10.8) K/ul Hgb 8.0 L (12.0-16.0) g/dl Hct 26.8 L (34.1-44.9) % Plt Count 377 (130-400) K/uL BMP 01/03/22 06:40 Sodium 146 H Potassium 3.9 Chloride 111 H Carbon Dioxide 33 H BUN 24 H Creatinine 1.48 H Glucose 112 H Calcium 8.0 L Medications Administered Current Inpatient Medications Acetaminophen (Acetaminophen 325 Mg Tab) 650 mg PO Q6 [facility] Stop: 01/21/22 13:59 Last Admin: 01/03/22 13:16 Dose: 650 mg Albuterol (Albuterol 0.083% Nebu Soln 3 Ml Vial) 2.5 mg INH Q4H PRN; Protocol PRN Reason: Shortness Of Breath Stop: 01/20/22 18:27 Alprazolam (Alprazolam 0.5 Mg Tablet) 0.5 mg PO HS PRN PRN Reason: Anxiety Stop: 01/20/22 18:51 Last Admin: 01/01/22 22:17 Dose: 0.5 mg Aspirin (Aspirin 81 Mg Ectab) 81 mg PO DAILY [facility] Stop: 01/21/22 08:59 Last Admin: 01/03/22 08:38 Dose: 81 mg Carvedilol (Carvedilol 25 Mg Tab) 25 mg PO BID [facility] Stop: 01/20/22 20:59 Last Admin: 01/03/22 08:38 Dose: 25 mg Clonidine HCl (Clonidine Hcl 0.1 Mg Tab) 0.2 mg PO BID [facility] Stop: 01/21/22 20:59 Last Admin: 01/03/22 08:38 Dose: 0.2 mg Cyanocobalamin (Cyanocobalamin (B-12) 100 Mcg Tablet) 100 mcg PO QAM [facility] Stop: 01/23/22 17:29 Last Admin: 01/03/22 08:36 Dose: 100 mcg Ergocalciferol (Ergocalciferol 50,000 Units 1250 Mcg Cap) 50,000 units PO Dobson@2100 [facility] Stop: 01/25/22 20:59 Last Admin: 01/02/22 20:57 Dose: 50,000 units Ferrous Gluconate (Ferrous Gluconate 324 Mg Tab) 324 mg PO QAM [facility] Stop: 01/24/22 08:59 Last Admin: 12/26/21 07:50 Dose: 324 mg Folic Acid (Folic Acid 1 Mg Tab) 1 mg PO QAM [facility] Stop: 01/23/22 17:29 Last Admin: 01/03/22 08:35 Dose: 1 mg Heparin Sodium (Porcine) (Heparin Sod 5,000 Unit/0.5 Ml Vial) 5,000 units SQ Q12 [facility] Stop: 01/28/22 20:59 Last Admin: 01/03/22 08:39 Dose: 5,000 units Hydralazine HCl (Hydralazine Tab 50 Mg Tab) 100 mg PO TID [facility] Stop: 01/20/22 20:59 Last Admin: 01/03/22 08:39 Dose: 100 mg Hydromorphone HCl (Hydromorphone Inj 0.5 Mg/0.5 Ml Syr) 0.5 mg IV Q8H PRN PRN Reason: Severe Pain Stop: 01/05/22 17:14 Last Admin: 12/23/21 22:13 Dose: 0.5 mg Hydroxyzine HCl (Hydroxyzine Hcl 25 Mg Tab) 25 mg PO Q8H PRN PRN Reason: anxiety Stop: 01/24/22 13:59 Last Admin: 12/25/21 23:13 Dose: 25 mg Labetalol HCl (Labetalol Hcl Iv 5 Mg/Ml 20ml) 10 mg IV Q4H PRN; Protocol PRN Reason: htn Stop: 01/20/22 18:27 Last Admin: 01/03/22 06:18 Dose: 10 mg Lactobacillus Acidophilus (Advanced Probiotic 1250 Mg Capsule) 2 cap PO DAILY [facility] Stop: 01/22/22 13:14 Last Admin: 01/03/22 08:35 Dose: 2 cap Loratadine (Loratadine 10 Mg Tab) 10 mg PO DAILY [facility] Stop: 01/21/22 08:59 Last Admin: 01/03/22 08:35 Dose: 10 mg Losartan Potassium (Losartan Potassium 50 Mg Tab) 100 mg PO DAILY [facility] Stop: 01/21/22 08:59 Last Admin: 01/03/22 08:37 Dose: 100 mg Magnesium Oxide (Magnesium Oxide 400 Mg Tab) 400 mg PO BID [facility] Stop: 01/31/22 08:59 Last Admin: 01/03/22 13:17 Dose: 400 mg Miconazole Nitrate (Miconazole Nitrate Powder 43 Gm) 1 appln EXT PRN PRN PRN Reason: Affected Skin Folds Stop: 01/21/22 13:03 Last Admin: 12/24/21 08:43 Dose: 1 appln Mirtazapine (Mirtazapine Tab 15 Mg Tab) 30 mg PO HS [facility] Stop: 01/31/22 20:59 Last Admin: 01/01/22 22:21 Dose: 30 mg Famotidine (Zantac 360) Non-Form Patient's Own Med 1 each PO BID [facility] Stop: 01/27/22 20:59 Last Admin: 01/03/22 08:36 Dose: 1 mg Ondansetron HCl (Ondansetron Inj 2 Mg/Ml 2 Ml Vial) 4 mg IV Q6H PRN PRN Reason: Nausea And Vomiting Stop: 01/21/22 08:26 Last Admin: 01/02/22 15:35 Dose: 4 mg Pantoprazole Sodium (Pantoprazole 40 Mg Tab) 40 mg PO HS [facility] Stop: 01/20/22 20:59 Last Admin: 01/02/22 20:58 Dose: 40 mg Potassium Phosphate (Pot Phosphate Monobasic W/ Sod Tab) 2 tab PO BID [facility] Stop: 01/31/22 08:59 Last Admin: 01/03/22 08:35 Dose: 2 tab Raspberry (Raspberry Syrup 5 Ml Udp) 5 ml PO Q6 [facility] Stop: 01/06/22 17:59 Last Admin: 01/03/22 13:16 Dose: 5 ml Tamsulosin HCl (Tamsulosin Hcl 0.4 Mg Cap) 0.4 mg PO QAM [facility] Stop: 01/20/22 18:27 Last Admin: 01/03/22 08:38 Dose: 0.4 mg Tramadol HCl (Tramadol Hcl 50 Mg Tablet) 25 mg PO Q6H PRN PRN Reason: Mild or moderate pain Stop: 01/21/22 17:13 Umeclidinium/Vilanterol (Umeclidinium/Vilanterol 62.5/25mcg 7 Puffs/Inhaler) 1 puffs INH DAILY [facility] Stop: 01/21/22 08:59 Last Admin: 01/03/22 08:37 Dose: 1 puffs Vancomycin HCl (Vancomycin Hcl 125 Mg/2.5ml Soln) 125 mg PO Q6 [facility] Stop: 01/06/22 17:59 Last Admin: 01/03/22 13:18 Dose: 125 mg
--- NOTE | 2022-01-03 18:17 | Discharge Summary ---
Date of Service January 03, 2022 Admission HPI Per Admitting Provider This is a 76 yo F with PMhx of HTN, HLD, COPD who presents with repeated falls, weakness and generalized pain. She was recently admitted to [facility] for NANCY/rhabdomyolysis and falls from Dec 01- and was discharged home with health services. This morning she was significantly nauseous, vomiting, had poor po intake and diarrhea the past few days. She reports feeling achey pain in the right side of her abdomen which moves down into the lower left side, 7/10 and seems to wax and wanes. She has been taking Tylenol #3 along with more tylenol and 0.25 mg xanax to help her fall asleep. She has utilized these meds for almost 2 weeks adn the pain has progressed. Today the pain in her abdomen was worse so family called EMS and brought her here to the hospital. She has been falling recently, and last time was about 2 weeks ago while she was trying to get in bed, and instead slid off the side of the bed. Pt has been living with her daughter, Erica, and granddaughter is also local and have been taking care of her. Pt notes " I feel like my BP meds are doing me in". She feels dizzy, lightheaded and worse after taking them. She is compliant with her medications as her daughter helps her with it. She did not vomit today after taking medications. Pt BP today is significantly elevated at ~220/80s while at bedside. She notes her BP has been difficult to control. On dc summary from the last admission she was started on clonidin 0.2 mg BID and losartan 50 mg QAM. Pt wears 3 L O2 at baseline, this was increased from 2L to 3 L after her last admission. She quit smoking 1.5 years ago. Pt does use her inhalers as directed and nebulizer if needed. Denies any recent worsening shortness of breath. Admission Exam Per Admitting Provider Physical Exam: General: awake, alert, no apparent distress Head: Normocephalic, atraumatic ENT: PERRL, EOMI, no pharyngeal exudate, mucous membranes moist Chest: + on 3L via NC, faint wheeze, diminished breath sounds at right base, no rales or rhonchi Cardiac: Regular rate and rhythm, no murmur, no JVD, normal peripheral pulses, good capillary refill Abdominal: NABS x 4 quadrants, soft, nondistended, +tender to palpation in R flank region and LLQ, negative Murpheys sign, no rebound or guarding Extremities: Normal inspection, no peripheral edema or erythema, calfs nontender to palpation Psych: Normal mood and affect Neuro: AAO x 3, strength intact bilaterally and rated 4/5, no motor deficits, speech is clear, no peripheral sensory deficits Principal Diagnosis Weakness, frequent falls, nephrolithiasis, status post bilateral ureteral stent placement, C. difficile colitis, hypertension Discharge Exam Lying in bed with minimal distress due to abdominal discomfort Constitutional well developed, well nourished, + ill appearing and + obese Eyes PERRL, conjunctivae normal, anicteric sclerae ENMT external ear and nose normal, oropharynx normal Neck trachea midline, no thyromegaly Respiratory no respiratory distress Auscultation: + diminished lung sounds and + crackles (Minimal crackles at the bases) Cardiovascular Rate/Rhythm: regular rate and regular rhythm; not tachycardic Heart Sounds: normal S1 and normal S2; no murmur Extremities: + edema (Trace edema bilaterally) Gastrointestinal (Abdomen) Inspection/Auscultation: normal bowel sounds; abdomen not distended Percussion/Palpation: + abdomen tender (Tender epigastrium) and abdomen soft Lymphatic no cervical or axillary lymphadenopathy Discharge Data Allergies Allergy/AdvReac Type Severity Reaction Status Date / Time amlodipine Allergy Unknown PT'S LIST Verified 12/21/21 16:08 cefuroxime Allergy Unknown PT'S LIST Verified 12/21/21 16:08 Cephalosporins Allergy Unknown PT'S LIST Verified 12/21/21 16:08 ciprofloxacin Allergy Unknown PT'S LIST Verified 12/21/21 16:08 erythromycin base Allergy Unknown PT'S LIST Verified 12/21/21 16:08 Consultations 12/21/21 15:33 ED Decision to Admit Stat 12/21/21 15:56 Consult Urology Routine 12/21/21 17:11 Consult Orthopedic Surgery Routine 12/26/21 09:16 Consult Gastroenterology Routine Procedures Performed Operation Date: 12/24/21 09:30 Actual Procedures p Cystoscopy, Bilateral Retrograde Pyelogram, Bilateral Stent Placement, Bladder Stone Extraction(Bilateral) - Cm Jimenez, Ordered Studies 12/21/21 13:36 CT head/brain wo con Stat 12/21/21 13:40 CT cervical spine wo con Stat 12/21/21 13:41 CT abd pelvis wo con Stat 12/24/21 FL retrograde includes kub Routine Hospital Course (1) Hydronephrosis concurrent with and due to calculi of kidney and ureter: Renal calculi Left mild hydronephrosis Last CT from 12/01/2021 with only 3 mm right nonobstructing nephrolithiasis. Admitting UA no s/o infection. Pt afebrile, c/w flomax, strain all urine, c/w pain management. Pt drowsy and sleepy likely 2/2 pain meds use, will cut down on opiates pain meds --> Tylenol scheduled, Tylenol 3 discontinued, hydromorphone every 8 hours as needed for severe pain, tramadol for mild to moderate pain as needed. Baseline creatinine around 1.6 upon outpatient chart review. Uro evaluated, status post cystoscopy and bilateral stent placement 12/24/2021. Patient will need outpatient follow-up with urology. Signs and or symptoms of infection Denies any pain and remains medically stable Denies any significant symptoms at rest Weakness: Frequent falls: Rt hip OA CT abd noted age indeterminate impacted right femoral fracture but Pelvic XR w/ no fracture but has Rt hip moderate OA Ortho evaled, no Ix for now. f/u [facility] in 2 weeks. Pt uses a walker and wheelchair at home. PDMP reviewed. Patient has been on tylenol 3 and alprazolam for sometime. This may be contributing to falls too. PT/OT eval Fall precautions Cautious use of Xanax Has been accepted to [facility] Out of bed on a chair and will be transferred to [facility] this afternoon History of depression She has been on Remeron at nighttime She was getting Celexa which likely caused her to be more drowsy and not been participating in physical therapy Celexa has been discontinued and will restart Remeron Remeron has been restarted and the patient remained stable Remeron has been working (2) C. 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 At baseline patient is not a great eater though. 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 Admitting CTAP with cyst [see above]. Patient does not drink alcohol. Pancreatic cyst: as in admitting CTAP. F/u w/ GI as OP. GI has been consulted, started PO vanco for possible C diff 12/27, patient does have loose stool, c diff gene positive but toxin negative. Pt ate some today, still with poor appetite, will hold IVF for concerns of fluid overload, assess in AM for fluid need if PO intake remains poor. Patient wouldn't want any kind of tube feeding/neither PEG tube nor Nasogastric tube. Still has abdominal discomfort with nausea without any vomiting and or diarrhea Will finish the course of oral vancomycin Denies any more diarrhea and does not have any more abdominal discomfort Will finish the course of vancomycin Plan 76 yo F with PMhx of HTN, HLD, COPD, Degenerative joint disease of right hip who presented 12/21 with repeated falls, weakness and generalized pain. She was recently admitted to [facility] for NANCY/rhabdomyolysis and falls from Dec 01- and was discharged home with health services.She is being managed for the following: Admitting imagings: CXR with cardiomegaly and without pulmonary edema. Trace pleural effusion with lateral right lung base opacities suggestive of atelectasis/scaring. CT head: No acute findings. C-spine CT: No acute findings. CTAP: Obstructing calculus/cluster of calculi in the left proximal ureter measuring up to 16 mm in length and causes mild left hydronephrosis. Nonobstructing calculi in the right kidney. Also there is pathologically indeterminant 4.1 cm ovoid cystic lesion in the distal pancreatic body which contains internal calcification/debris's. Nonemergent follow-up with GI for possible endoscopic ultrasound is recommended. Pelvic x-ray with moderate right hip osteoarthritis without acute fracture or dislocation. Left hip total joint arthroplasty with chronic revision changes noted. Elevated troponin: Hypertensive urgency: HTN (hypertension): BP 220/80-90 on admission Pt is compliant with medications at home per report, daughter is RN and manages her medications. Takes clonidine 0.2 mg BID, losartan 50 mg daily, carvedilol 12.5 mg BID, hydralazine 100 mg TID Losartan was increased to 100mg daily and carvedilol to 25mg bid on admission Blood pressure is reasonably controlled with current doses of medication No cardiac symptoms Troponin elevated at 48.2, flat trended. May be related to elevated BP. Denies chest pain, c/t telemetry monitoring. Doubt any ACS Acute on chronic anemia: OP Chart review w/ baseline Hb of 9-10. Admitting hemoglobin of 8.3, dropped to 7.6 on 12/23. Transfuse for symptomatic anemia or hemoglobin less than 7. Iron profile with low iron and low normal ferritin B12/folate. Started supplements. P.o. iron tablet on hold, will use Venofer given nausea and poor appetite. Can resume PO iron once appetite improves. We will check hemoglobin tomorrow Hemoglobin remains stable at 8.0 as of 01/03/2022 Electrolyte abnormality: Monitor and replete as appropriate. Other chronic medical conditions: HLD, COPD -->> continue with/resume home meds as and when appropriate. DVT prophylaxis: SCDs Re: acute on chronic anemia. We will start subcu heparin CODE STATUS: DNR/DNI PT/OT, CM to assist w/ dc planning. Expect DC in next few days with improvement of appetite and diarrhea. Discharged to [facility] this afternoon Total Time Total Time Spent Total Time Spent (In Minutes): 40 minutes Discharge Plan Discharge Items Patient Disposition: Transfer Inpatient Rehab Fac Reason For Visit: FREQUENT FALLS, KIDNEY STONE Discharge Diagnosis: Weakness, frequent falls, nephrolithiasis, status post bilateral ureteral stent placement, C. difficile colitis, hypertension Condition on Discharge: Fair Activity: As commented below Activity Comment: Will need continued PT and OT Non-emergency contact: Primary Care Provider Call non-emergency contact if: you have any medication questions and your symptoms worsen Follow-up/Referrals: PCP,NO [Physician] - (Please make an appointment with your primary care physician within 7 days following discharge from the facility) Diet: Regular Diet Texture: Easy to Chew Addtl Attending Provider Instructions: Please take precautions to avoid fall You can try Imodium as needed for diarrhea Please finish the course of antibiotic Take your medications as directed Please give appointment with your healthcare providers Need to have a follow-up appointment with the urologist Pending Studies at Discharge: No Stand-Alone Forms: My [facility] Skilled Items Patient informed of condition?: Yes DNR: Yes Discharge Level of Care: Acute rehab Communicable Disease: No Discharge Prognosis: Stable Lines: None Urinary Catheter: No Medications and DC Order Prescriptions: New losartan 50 mg Tablet 100 mg PO DAILY 30 Days Qty: 60 0RF carvedilol 25 mg Tablet 25 mg PO BID 30 Days Qty: 60 0RF cyanocobalamin (vitamin B-12) [Vitamin B-12] 100 mcg Tablet 100 mcg PO QAM 30 Days Qty: 30 0RF magnesium oxide 400 mg (241.3 mg magnesium) Tablet 400 mg PO BID 30 Days Qty: 60 0RF tamsulosin 0.4 mg Capsule 0.4 mg PO QAM 30 Days Qty: 30 0RF Phospha 250 Neutral 250 mg Tablet 2 tab PO BID 30 Days Qty: 120 0RF folic acid 1 mg Tablet 1 mg PO QAM 30 Days Qty: 30 0RF ferrous gluconate 324 mg (38 mg iron) Tablet 324 mg PO QAM 30 Days Qty: 30 0RF Advanced Probiotic 625 mg (10 billion cell) Capsule 2 cap PO DAILY 30 Days Qty: 60 0RF vancomycin 125 mg capsule 125 mg PO Q6H Qty: 10 0RF loperamide [Imodium A-D] 2 mg capsule 2 mg PO Q6H PRN (Reason: loose stool) Qty: 30 0RF Continued albuterol sulfate 2.5 mg /3 mL (0.083 %) Solution For Nebulization 2.5 mg INHALATION Q4H PRN (Reason: Shortness Of Breath) clonidine HCl 0.2 mg Tablet 0.2 mg PO BID hydralazine 100 mg Tablet 100 mg PO TID acetaminophen-codeine 300-30 mg Tablet 1 tab PO Q6H PRN (Reason: Moderate Pain (Scale Score 5-6)) alprazolam [Xanax] 0.5 mg Tablet 0.5 mg PO BID PRN (Reason: Sleep) pantoprazole [Protonix] 40 mg Tablet,Delayed Release (Dr/Ec) 40 mg PO HS mirtazapine [Remeron] 30 mg Tablet 30 mg PO HS aspirin 81 mg Tablet 81 mg PO DAILY ergocalciferol (vitamin D2) [Vitamin D2] 1,250 mcg (50,000 unit) Capsule 1,250 mcg PO WK Rx Instructions: Takes once per week loratadine [Claritin] 10 mg Tablet 10 mg PO DAILY Anoro Ellipta 62.5-25 mcg/actuation Blister With Device 1 inh INHALATION DAILY albuterol sulfate 90 mcg/actuation Hfa Aerosol Inhaler 2 puff INHALATION DIRECTED PRN (Reason: Shortness Of Breath) Discontinued losartan 50 mg Tablet 50 mg PO DAILY carvedilol [Coreg] 12.5 mg Tablet 12.5 mg PO BID Rx Instructions: must administer with a meal/food Discharge Orders: Discharge Order (Routine); Ordered 01/03/22 Ordered By: Alfredo Manley Admission Data Admit Date/Time: 12/21/21 15:56 Attending Provider: Alfredo Manley Admit Provider: Margarito Brody Primary Care Provider: Abe Gleason Other Providers: Margarito Brody ; Rajeev Sy ; [facility] ; Yannick Vigil ; Toshia Weston Other Interventions: Discharge Summary Assessment (RN) Last Done: 01/03/22 16:36
== END 2022-01-03 17:31 | DRG 660 ==
LOC: ED 12:48 → SUATTDRO 15:56 → 2W 15:56

== ENCOUNTER 2022-04-01 19:19 | Inpatient (IN) ==
--- NOTE | 2022-04-01 20:48 | XRay Report ---
XR chest 1V portable HISTORY: 76 years-old Female Chest pain, nonspecific acute chest pain COMPARISON: Chest radiograph and CTA chest 01/21/2022 TECHNIQUE: AP view of the chest FINDINGS: Cardiomediastinal and hilar silhouettes are within normal limits. Option cannula is coiled over the r ight lung apex. No pneumothorax, or large pleural effusion, airspace consolidation or overt pulmonary edema. Degenerative changes of the shoulders and spine. IMPRESSION: No acute process. ACT 112: Negative or not required by law. The above report was generated using voice recognition software. It may contain grammatical, syntax o r spelling errors. Electronically signed by: Mani Ramos M.D. 04/01/2022 8:46 PM
[2022-04-01] MEDS ORDERED: ONDANSETRON INJ 2 MG/ML 2 ML VIAL IV STA (21:07)
[2022-04-01] MEDS ORDERED: SODIUM CHLORIDE 0.9% 1000ML 1,000 ML IV ONE (21:07)
[2022-04-01] MEDS ORDERED: FAMOTIDINE 20MG IV PUSH 20 MG/5 ML SYR IV STA (21:07)
[2022-04-01] MEDS ORDERED: ACETAMINOPHEN 1,000 MG/100 ML VIAL IV STA (21:07)
[2022-04-01 21:19] LABS: Alanine Aminotransferase 12 U/L (7-52); Albumin Level 3.4 gm/dl (3.4-5.0); Alkaline Phosphatase 60 U/L (34-104); Anion Gap 5 (3-11); BUN Creatinine Ratio 14.3 (10-20); Bilirubin,Total 0.4 mg/dl (0.2-1.0); Blood Urea Nitrogen 30 mg/dl (6-23); Calcium 10.1 mg/dl (8.5-10.1); Carbon Dioxide 26 mmol/L (21-32); Chloride 111 mmol/L (98-107); Creatinine Clr Calc Pharmacy 20.7 ml/min; Est GFR (African American) 25.7 ml/min; Est GFR (Non-African American) 22.1 ml/min; Globulin 3.5 gm/dl (2.5-4.0); Glucose 96 mg/dl (70-99(Fasting)); Sodium 142 mmol/L (136-145); Total Protein 6.9 gm/dl (6.0-8.3); Troponin I High Sensitivity 7.7 pg/ml (0-14)
[2022-04-01 21:40] LABS: Partial Thromboplastin Ratio 0.9; Partial Thromboplastin Time 25.6 Seconds (21.0-31.0); Prothrombin Time 11.1 Seconds (9.0-12.0)
[2022-04-01 21:48] LABS: Bilirubin Direct 0.1 mg/dl (0-0.2); Potassium 5.3 mmol/L (3.5-5.1)
[2022-04-01 21:49] LABS: Basophils # (auto) 0.04 K/uL (0-0.2); Basophils % (auto) 0.6 %; Eosinophils # (auto) 0.36 K/uL (0-0.50); Eosinophils % (auto) 5.2 %; Hematocrit (blood only) 29.7 % (34.1-44.9); Hemoglobin 9.1 g/dl (12.0-16.0); Immature Granulocytes # (auto) 0.04 K/uL (0.00-0.02); Immature Granulocytes % (auto) 0.6 %; Lymphocytes # (auto) 2.05 K/uL (1.2-3.4); Lymphocytes % (auto) 29.4 %; Mean Corpuscular Hemoglobin 30.6 pg (25.0-34.0); Mean Corpuscular Hgb Conc 30.6 g/dL (32.0-36.0); Mean Platelet Volume 9.4 fL (9.4-12.3); Monocytes # (auto) 0.65 K/uL (0.24-0.82); Monocytes % (auto) 9.3 %; Neutrophils # (auto) 3.83 K/uL (1.4-6.5); Neutrophils % (auto) 54.9 %; Platelet Count 306 K/uL (130-400); RDW Coefficient of Variation 12.4 % (11.5-14.5); RDW Standard Deviation 45.2 fL (36.4-46.3); Red Blood Count 2.97 M/uL (3.93-5.22); White Blood Count 6.97 K/ul (4.8-10.8)
--- NOTE | 2022-04-01 21:56 | CT Scan Report ---
CT SCAN OF THE ABDOMEN AND PELVIS WITHOUT IV CONTRAST CLINICAL HISTORY: Upper abdominal pain. COMPARISON STUDY: Abdominal CT dated 01/13/2022. TECHNIQUE: CT scan of the abdomen and pelvis is performed from the lung bases to the proximal femora. Images are reviewed in the axial, sagittal, and coronal planes. IV contrast was not administered for this examination as per the referring clinician. Note that the examination was performed in signific antly suboptimal fashion without oral and IV contrast. A dose lowering technique was utilized adherin g to the principles of ALARA. FINDINGS: Lung bases: The heart is normal in size and without pericardial effusion. There is diminished attenua tion of the cardiac blood pool as compared to the myocardium suggesting anemia. There is trace right pleural effusion. Scarring/atelectasis is noted at both lung bases. A small hiatal hernia is noted. Liver: The unenhanced liver is normal in size, contour, and attenuation. There is no intrahepatic vinny iary ductal dilatation. Gallbladder: Unremarkable. Spleen: Normal in size and attenuation. Pancreas: There is a 4.5 cm ovoid cystic lesion in the pancreatic body is seen on image #94. This con tains internal calcification/debris. The pancreatic tail appears atrophic. The unenhanced proximal pa ncreas is moderately atrophic and otherwise grossly unremarkable. Adrenal glands: Unremarkable. Kidneys: The unenhanced kidneys are atrophic. Bilateral ureteral stents are in place and there is no hydronephrosis. No calculi are identified in either ureter along the course of the stents. There is a punctate stone/fragment in the interpolar right kidney. No left renal calculi are identified. Urothe lial thickening is seen in the renal pelvis bilaterally and along both ureters with mild surrounding inflammation. There is no evidence of contour deforming renal mass lesion. Abdominal vasculature: The abdominal aorta is normal in course and caliber noting advanced atheroscle rotic calcification. Bowel: There is moderate colonic diverticulosis without CT evidence of acute diverticulitis. No bowel obstruction is seen. Submucosal fat deposition is seen throughout the right colon. This is a nonspec ific finding but has been described in the setting of chronic inflammation. The appendix is not iden tified and reported surgically absent. Peritoneum: There is no intraperitoneal free air or abdominal ascites. There is a fat-containing umbi lical hernia. Lymphadenopathy: A mildly enlarged left iliac chain node seen on image #185 measures 12 mm in short a xis. This is unchanged. No additional enlarged lymph nodes are seen in the abdomen or pelvis. Pelvic viscera: Evaluation of the pelvis is significantly degraded by streak artifact from a left hip arthroplasty. The bladder is normal as visualized. The uterus is surgically absent. No adnexal lesio n is seen. Skeletal structures: The skeletal structures are osteopenic. No lytic or blastic lesions are seen. A left hip arthroplasty is in place. Advanced arthritic change is seen in the right hip. There is moder ate lumbosacral spondylosis. There is an age indeterminant impacted fracture of the subcapital right femur. IMPRESSION: 1. Bilateral ureteral stents are in place. There is no hydronephrosis, and no ureteral stones are see n along the course of the stents. 2. Urothelial thickening is seen within the renal pelvis bilaterally and along both ureters. This may be related to the presence of indwelling stents. Correlate with clinical findings and urinalysis for evidence of superimposed urinary tract infection. 3. There is a punctate stone/fragment identified in the right kidney. 4. Again seen is an age indeterminant and likely chronic impacted subcapital fracture of the right fe mur. 5. Again seen is a pathologically indeterminant 4.5 cm ovoid cystic lesion in the distal pancreatic b yessica. This contains internal calcification/debris. A mucinous cystic neoplasm is not excluded. If not already performed, nonemergent follow-up is recommended. 6. Colonic diverticulosis without CT evidence of acute diverticulitis. 7. Additional findings as above. ACT 112: Negative or not required by law. Electronically signed by: Horacio Motta M.D. 04/01/2022 9:54 PM
[2022-04-01] MEDS ORDERED: SUCRALFATE 1 GM/10 ML UDC PO STA (23:51)
--- NOTE | 2022-04-02 00:39 | Emergency Department Note ---
Impression & Plan Gastritis, Epigastric abdominal pain, Pancreas cyst, CKD (chronic kidney disease) ED Provider Note NAME: JARVIS MATOS AGE: 76 SEX: F ARRIVES VIA: Ambulance INFORMANT: Patient ED PROVIDER(S): Jl Potter MD CHIEF COMPLAINT: Abdominal pain PLAN: Disposition: Admit MEDICAL DECISION MAKING: The patient is a pleasant 76-year-old woman with a past medical history of CKD, COPD on home oxygen, hypertension, hyperlipidemia, history of nephrolithiasis secondary to obstructing ureteral calculi status post bilateral ureteral stent placement with recent bilateral stent exchange last week who presents to the emergency department for evaluation of epigastric abdominal pain with nausea that began yesterday and persisted till today. Patient reports she has a history of a pancreatic cyst that she was supposed to have additional testing for 2 years ago but her follow-up has not occurred due to multiple reasons. She denies any recent fevers, chills, cough congestion, diarrhea or urinary symptoms. On arrival the patient is uncomfortable no acute distress, afebrile with stable vital signs. She has mild epigastric discomfort without discrete tenderness. EKG without overt acute ischemia. CXR negative for acute cardiopulmonary process. WBC and platelets within normal limits. H/H similar to prior. Chemistry without metabolic acidosis. Creatinine 2.1, approximately 2 prior range values in setting of CKD. LFTs unremarkable. High-sensitivity 7.7, within normal limits. Lipase is elevated at 188 however nonspecific as less than 3x upper normal limit. COVID-19 RNA, LEYLA test was negative. UA demonstrates leukoesterase, WBCs, nitrite positive and 1+ bacteria albeit with 20-[address] abdomen pelvis was performed and demonstrates bilateral ureteral stents in place without hydronephrosis or ureteral stents seen. Nonspecific urothelial th ickening is seen which may be related to indwelling stents. The patient's previously noted cystic lesion is again seen and similar to prior imaging. Otherwise no acute findings identified. Upon reevaluation the patient did feel improved following IV fluid hydration, APAP, famotidine, Zofran. She was additionally given Carafate for suspected component of gastritis. She did feel some improvement and initially indicated she preferred to go home. Her daughter did call the emergency department and expressed her concern to her RN about her going home since she not confident she will hydrate at home. Ultimately the patient's daughter did convince her mother to agree to stay in the hospital for further supportive care. [facility] the patient for [facility]. Cefepime ordered for UTI. Triage Nursing notes reviewed and agree them. Prior medical records reviewed Vital Signs: reviewed Differential diagnosis: Gastroenteritis, food borne illness, infections, appendicitis, diverticulitis, inflammatory bowel disease, obstruction, GI bleed, biliary pathology, volvulus, as well as other pathologies. ER treatment provided: See below. Diagnostics interpreted by me: ECG: Normal sinus rhythm, 71 bpm, no ectopy, no overt ST elevation or depression Cardiac Monitoring: An order for continuous cardiac monitoring was placed and demonstrated Normal sinus rhythm, 71 bpm, no ectopy. Laboratory studies: See below Imaging studies: See below Consultation(s): [facility] will evaluate the patient for admission. HPI: The patient is a pleasant 76-year-old woman with a past medical history of CKD, COPD on home oxygen, hypertension, hyperlipidemia, history of nephrolithiasis secondary to obstructing ureteral calculi status post bilateral ureteral stent placement with recent bilateral stent exchange last week who presents to the emergency department for evaluation of epigastric abdominal pain with nausea that began yesterday and persisted till today. Patient reports she has a history of a pancreatic cyst that she was supposed to have additional testing for 2 years ago but her follow-up has not occurred due to multiple reasons. She denies any recent fevers, chills, cough congestion, diarrhea or urinary symptoms. ROS: See above HPI for pertinent positives & negatives. A total of 10 systems reviewed and were otherwise negative. VITALS:See Below PHYSICAL EXAMINATION: GENERAL: Awake, alert, uncomfortable-appearing, in no distress HENT: Normocephalic, atraumatic. Oropharynx with dry mucous membranes and otherwise unremarkable. EYES: Normal conjunctiva. Sclera non-icteric. NECK: Supple. No nuchal rigidity. FROM. No JVD. RESPIRATORY: Clear to auscultation. CARDIAC: Regular rate, normal rhythm. Extremities warm and well perfused. Pulses equal. ABDOMEN: Soft, non-distended. Mild epigastric discomfort without discrete tenderness to palpation. No rebound or guarding. No masses. RECTAL: Deferred. MUSCULOSKELETAL: Chest examination reveals no tenderness. The back is symmetrical on inspection without obvious abnormality. There is no CVA tenderness to palpation. No joint edema. LOWER EXTREMITIES: Calves are equal size bilaterally and non-tender. No edema. No discoloration. NEURO: Normal sensorium. No sensory or motor deficits noted. SKIN: No rash or jaundice noted. 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 pulmonary disease) with chronic respiratory failure per discharge summary records 01/27/22 Degenerative joint disease of right hip Fracture of right hip hx GERD (gastroesophageal reflux disease) History of blood transfusion 01/08 HLD (hyperlipidemia) HTN (hypertension) Kidney stones Migraine On home oxygen therapy 2lpm via n/c PRN Pancreatic cyst monitoring Rhabdomyolysis pt's family denies Surgical History H/O knee surgery Left wide osteotomy for extra cartilidge History of colonoscopy History of esophagogastroduodenoscopy (EGD) History of hip surgery r/t congenital hip deformity as a young child. 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: No Beliefs That Will Affect Care: None marital status: / Current Living Situation: Family How many Children do You have: 2 Feels Safe at Home: Yes Assistive Devices: Bedside Commode, Denture - Upper, Denture - Lower, Lift Chair, Oxygen - Continuous, Raised Toilet Seat, Stair Lift, Walker and Wheelchair Allergies Allergies Allergy/AdvReac Type Severity Reaction Status Date / Time metronidazole [From Flagyl] Allergy Severe SHORTNESS Verified 04/01/22 20:28 OF BREATH amlodipine AdvReac Intermediate left leg Verified 04/01/22 20:28 numbness cefuroxime AdvReac Intermediate Gastrointestinal Verified 04/01/22 20:28 Upset Cephalosporins AdvReac Intermediate Gastrointestinal Verified 04/01/22 20:28 Upset ciprofloxacin AdvReac Intermediate Gastrointestinal Verified 04/01/22 20:28 Upset erythromycin base AdvReac Intermediate Gastrointestinal Verified 04/01/22 20:28 Upset sulfamethoxazole AdvReac Intermediate hyperkalemi Verified 04/02/22 03:35 [From Bactrim] a trimethoprim [From Bactrim] AdvReac Intermediate hyperkalemi Verified 04/02/22 03:35 a Home Meds Home Medications Medication Instructions Recorded Confirmed acetaminophen 300 mg-codeine 30 mg 1 tab PO Q6H PRN Moderate Pain 12/21/21 04/01/22 tablet (Scale Score 5-6) albuterol sulfate 2.5 mg/3 mL 2.5 mg inhalation Q4H PRN 12/21/21 04/01/22 (0.083 %) solution for nebulization Shortness Of Breath albuterol sulfate 90 mcg/actuation 2 puff inhalation DIRECTED PRN 12/21/21 04/01/22 aerosol inhaler Shortness Of Breath alprazolam 0.5 mg tablet (Xanax) 0.5 mg PO BID PRN Anxiety 12/21/21 04/01/22 ergocalciferol (vitamin D2) 1,250 1,250 mcg PO WK 12/21/21 04/01/22 mcg (50,000 unit) capsule (Vitamin D2) hydralazine 100 mg tablet 100 mg PO BID 12/21/21 04/01/22 loratadine 10 mg tablet (Claritin) 10 mg PO QAM 12/21/21 04/01/22 mirtazapine 30 mg tablet (Remeron) 30 mg PO HS 12/21/21 04/01/22 pantoprazole 40 mg tablet,delayed 40 mg PO HS 12/21/21 04/01/22 release (Protonix) umeclidinium 62.5 mcg-vilanterol 1 inh inhalation QAM 12/21/21 04/01/22 25 mcg/actuation powdr for inhalation (Anoro Ellipta) carvedilol 25 mg tablet (Coreg) 25 mg PO BID 03/16/22 04/01/22 clonidine HCl 0.1 mg tablet 0.1 mg PO BID 03/16/22 04/01/22 losartan 100 mg tablet 100 mg PO QAM 03/16/22 04/01/22 aspirin 81 mg tablet,delayed 81 mg PO DAILY 04/01/22 04/01/22 release Previous Rx's Medication Instructions Recorded loperamide 2 mg capsule (Imodium 2 mg PO Q6H PRN loose stool #30 01/03/22 A-D) caps oxycodone-acetaminophen 7.5 mg-325 1 tab PO Q8H PRN pain #7 tabs 03/24/22 mg tablet (Percocet) phenazopyridine 200 mg tablet 200 mg PO Q8H PRN pain #10 tabs 03/24/22 (Pyridium) tamsulosin 0.4 mg capsule 0.4 mg PO HS #30 caps 03/24/22 Results & Data (ED) Vital Signs Vital Signs - 24 hr 04/01/22 19:38 04/01/22 20:35 04/01/22 20:36 Temperature 36.8 C Temperature Source Oral Pulse Rate 72 Pulse Rate [Finger] 75 Pulse Rate from SpO2 Sensor Pulse Rhythm Pulse Rhythm [Finger] Regular Pulse Strength [Finger] Normal Respiratory Rate 16 25 H Respiratory Effort / Characteristics Non-Labored Spontaneous Short of Breath SOB on Exertion Respiratory Depth Normal Respiratory Pattern Tachypnea Blood Pressure 164/69 H Blood Pressure [Left Arm] 146/75 H Blood Pressure Mean 100 Blood Pressure Mean [Left Arm] 98 Pulse Oximetry 100 99 99 Oxygen Delivery Method Nasal Cannula Nasal Cannula Nasal Cannula Oxygen Flow Rate 3 Sepsis Recent Fever Within 48 Hours No Sepsis New/Unexplained Change in Mental Status No Sepsis Action Taken by Nursing No Action Required 04/01/22 20:36 04/01/22 20:33 04/01/22 19:53 Temperature Temperature Source Pulse Rate 75 72 Pulse Rate [Finger] Pulse Rate from SpO2 Sensor 75 Pulse Rhythm Regular Pulse Rhythm [Finger] Pulse Strength [Finger] Respiratory Rate 25 H 19 Respiratory Effort / Characteristics Short of Breath SOB on Exertion Respiratory Depth Shallow Respiratory Pattern Blood Pressure Blood Pressure [Left Arm] Blood Pressure Mean Blood Pressure Mean [Left Arm] Pulse Oximetry 99 100 Oxygen Delivery Method Nasal Cannula Nasal Cannula Oxygen Flow Rate 3 Sepsis Recent Fever Within 48 Hours Sepsis New/Unexplained Change in Mental Status Sepsis Action Taken by Nursing 04/01/22 20:00 04/01/22 20:10 04/01/22 20:20 Temperature Temperature Source Pulse Rate 71 69 68 Pulse Rate [Finger] Pulse Rate from SpO2 Sensor 71 69 Pulse Rhythm Pulse Rhythm [Finger] Pulse Strength [Finger] Respiratory Rate 20 19 23 Respiratory Effort / Characteristics Respiratory Depth Respiratory Pattern Blood Pressure Blood Pressure [Left Arm] Blood Pressure Mean Blood Pressure Mean [Left Arm] Pulse Oximetry 100 100 Oxygen Delivery Method Oxygen Flow Rate Sepsis Recent Fever Within 48 Hours Sepsis New/Unexplained Change in Mental Status Sepsis Action Taken by Nursing 04/01/22 20:26 04/01/22 20:26 04/01/22 20:30 Temperature Temperature Source Pulse Rate 73 74 Pulse Rate [Finger] Pulse Rate from SpO2 Sensor Pulse Rhythm Pulse Rhythm [Finger] Pulse Strength [Finger] Respiratory Rate 18 18 Respiratory Effort / Characteristics Respiratory Depth Respiratory Pattern Blood Pressure 158/109 H Blood Pressure [Left Arm] Blood Pressure Mean 125 Blood Pressure Mean [Left Arm] Pulse Oximetry Oxygen Delivery Method Oxygen Flow Rate Sepsis Recent Fever Within 48 Hours Sepsis New/Unexplained Change in Mental Status Sepsis Action Taken by Nursing 04/01/22 20:31 04/01/22 20:31 04/01/22 20:40 Temperature Temperature Source Pulse Rate 77 72 Pulse Rate [Finger] Pulse Rate from SpO2 Sensor Pulse Rhythm Pulse Rhythm [Finger] Pulse Strength [Finger] Respiratory Rate 19 19 Respiratory Effort / Characteristics Respiratory Depth Respiratory Pattern Blood Pressure 146/75 H Blood Pressure [Left Arm] Blood Pressure Mean 98 Blood Pressure Mean [Left Arm] Pulse Oximetry Oxygen Delivery Method Oxygen Flow Rate Sepsis Recent Fever Within 48 Hours Sepsis New/Unexplained Change in Mental Status Sepsis Action Taken by Nursing 04/01/22 20:45 04/01/22 20:45 04/01/22 20:50 Temperature Temperature Source Pulse Rate 71 72 Pulse Rate [Finger] Pulse Rate from SpO2 Sensor Pulse Rhythm Pulse Rhythm [Finger] Pulse Strength [Finger] Respiratory Rate 20 25 H Respiratory Effort / Characteristics Respiratory Depth Respiratory Pattern Blood Pressure 163/76 H Blood Pressure [Left Arm] Blood Pressure Mean 105 Blood Pressure Mean [Left Arm] Pulse Oximetry Oxygen Delivery Method Oxygen Flow Rate Sepsis Recent Fever Within 48 Hours Sepsis New/Unexplained Change in Mental Status Sepsis Action Taken by Nursing 04/01/22 21:00 04/01/22 21:00 04/01/22 21:10 Temperature Temperature Source Pulse Rate 71 72 Pulse Rate [Finger] Pulse Rate from SpO2 Sensor 71 72 Pulse Rhythm Pulse Rhythm [Finger] Pulse Strength [Finger] Respiratory Rate 15 10 L Respiratory Effort / Characteristics Respiratory Depth Respiratory Pattern Blood Pressure 163/71 H Blood Pressure [Left Arm] Blood Pressure Mean 101 Blood Pressure Mean [Left Arm] Pulse Oximetry 100 100 Oxygen Delivery Method Oxygen Flow Rate Sepsis Recent Fever Within 48 Hours Sepsis New/Unexplained Change in Mental Status Sepsis Action Taken by Nursing 04/01/22 21:15 04/01/22 21:15 04/01/22 21:20 Temperature Temperature Source Pulse Rate 69 71 Pulse Rate [Finger] Pulse Rate from SpO2 Sensor 70 71 Pulse Rhythm Pulse Rhythm [Finger] Pulse Strength [Finger] Respiratory Rate 21 21 Respiratory Effort / Characteristics Respiratory Depth Respiratory Pattern Blood Pressure 181/63 H Blood Pressure [Left Arm] Blood Pressure Mean 102 Blood Pressure Mean [Left Arm] Pulse Oximetry 100 100 Oxygen Delivery Method Oxygen Flow Rate Sepsis Recent Fever Within 48 Hours Sepsis New/Unexplained Change in Mental Status Sepsis Action Taken by Nursing 04/01/22 22:39 04/01/22 22:40 04/01/22 23:00 Temperature Temperature Source Pulse Rate 68 64 Pulse Rate [Finger] Pulse Rate from SpO2 Sensor 67 67 64 Pulse Rhythm Pulse Rhythm [Finger] Pulse Strength [Finger] Respiratory Rate 18 22 Respiratory Effort / Characteristics Respiratory Depth Respiratory Pattern Blood Pressure 180/55 H 160/58 H Blood Pressure [Left Arm] Blood Pressure Mean 96 92 Blood Pressure Mean [Left Arm] Pulse Oximetry 98 98 99 Oxygen Delivery Method Oxygen Flow Rate Sepsis Recent Fever Within 48 Hours Sepsis New/Unexplained Change in Mental Status Sepsis Action Taken by Nursing 04/01/22 23:30 04/02/22 00:00 04/02/22 00:30 Temperature Temperature Source Pulse Rate 66 67 71 Pulse Rate [Finger] Pulse Rate from SpO2 Sensor 65 66 Pulse Rhythm Pulse Rhythm [Finger] Pulse Strength [Finger] Respiratory Rate 17 19 19 Respiratory Effort / Characteristics Respiratory Depth Respiratory Pattern Blood Pressure 170/54 H 183/63 H 178/71 H Blood Pressure [Left Arm] Blood Pressure Mean 92 103 106 Blood Pressure Mean [Left Arm] Pulse Oximetry 99 97 Oxygen Delivery Method Oxygen Flow Rate Sepsis Recent Fever Within 48 Hours Sepsis New/Unexplained Change in Mental Status Sepsis Action Taken by Nursing 04/02/22 01:00 04/02/22 01:30 04/02/22 02:00 Temperature Temperature Source Pulse Rate 68 66 Pulse Rate [Finger] Pulse Rate from SpO2 Sensor 67 Pulse Rhythm Pulse Rhythm [Finger] Pulse Strength [Finger] Respiratory Rate 18 17 20 Respiratory Effort / Characteristics Respiratory Depth Respiratory Pattern Blood Pressure 173/65 H 196/69 H 189/69 H Blood Pressure [Left Arm] Blood Pressure Mean 101 111 109 Blood Pressure Mean [Left Arm] Pulse Oximetry 99 Oxygen Delivery Method Oxygen Flow Rate Sepsis Recent Fever Within 48 Hours Sepsis New/Unexplained Change in Mental Status Sepsis Action Taken by Nursing 04/02/22 02:30 04/02/22 03:00 Temperature Temperature Source Pulse Rate 67 66 Pulse Rate [Finger] Pulse Rate from SpO2 Sensor 67 66 Pulse Rhythm Pulse Rhythm [Finger] Pulse Strength [Finger] Respiratory Rate 19 19 Respiratory Effort / Characteristics Respiratory Depth Respiratory Pattern Blood Pressure 171/72 H 164/66 H Blood Pressure [Left Arm] Blood Pressure Mean 105 98 Blood Pressure Mean [Left Arm] Pulse Oximetry 99 99 Oxygen Delivery Method Oxygen Flow Rate Sepsis Recent Fever Within 48 Hours Sepsis New/Unexplained Change in Mental Status Sepsis Action Taken by Nursing Laboratory Data Attestation: I reviewed the patient's lab results. 04/01/22 21:13 04/01/22 21:14 Lab Results 04/01/22 04/01/22 04/01/22 Range/Units 00:24 20:28 20:28 WBC Cancelled RBC Cancelled Hgb Cancelled Hct Cancelled MCV Cancelled MCH Cancelled MCHC Cancelled RDW Std Deviation Cancelled RDW Coeff of [place] Cancelled Plt Count Cancelled MPV Cancelled Immature Gran % (Auto) Cancelled Neut % (Auto) Cancelled Lymph % (Auto) Cancelled [place] % (Auto) Cancelled Eos % (Auto) Cancelled Baso % (Auto) Cancelled Neut # (Auto) Cancelled Lymph # (Auto) Cancelled [place] # (Auto) Cancelled Eos # (Auto) Cancelled Baso # (Auto) Cancelled Immature Gran # (Auto) Cancelled Absolute Nucleated RBC Cancelled Nucleated RBC % (auto) Cancelled Neutrophils % (Manual) Cancelled Band Neutrophils % Cancelled Lymphocytes % (Manual) Cancelled Prolymphocyte % Cancelled Reactive Lymphs % (Man) Cancelled Monocytes % (Manual) Cancelled Eosinophils % (Manual) Cancelled Basophils % (Manual) Cancelled Metamyelocytes % (Man) Cancelled Myelocytes % (Man) Cancelled Promyelocytes % (Man) Cancelled Blast Cells % (Manual) Cancelled Plasma Cell % (Manual) Cancelled Other Cells % Cancelled Nucleated RBC % Cancelled Neutrophils # (Manual) Cancelled Band Neutrophils # Cancelled Total Absolute Neuts Cancelled Lymphocytes # (Manual) Cancelled Prolymphocyte # Cancelled Reactive Lymphs # Cancelled Total Abs Lymphocytes Cancelled Monocytes # (Manual) Cancelled Eosinophils # (Manual) Cancelled Basophils # (Manual) Cancelled Metamyelocytes # (Man) Cancelled Myelocytes # (Manual) Cancelled Promyelocytes # (Man) Cancelled Blast Cells # (Man) Cancelled Plasma Cell # (Manual) Cancelled Other Cells # Cancelled Nucleated RBCs # (Man) Cancelled Hypersegmented Neuts Cancelled Hyposegmented Neuts Cancelled Hypogranular Neuts Cancelled Large Granular Lymphs Cancelled # Lrg Granular Lymphs Cancelled Hairy Cells Cancelled Smudge Cells Cancelled Toxic Granulation Cancelled Toxic Vacuolation Cancelled Dohle Bodies Cancelled Phillip Rods Cancelled Platelet Estimate Cancelled Hypogranular Platelets Cancelled Clumped Platelets Cancelled Giant Platelets Cancelled Platelet Satelliting Cancelled RBC Morphology Cancelled Polychromasia Cancelled Hypochromasia Cancelled Poikilocytosis Cancelled Basophilic Stippling Cancelled Anisocytosis Cancelled Microcytosis Cancelled Macrocytosis Cancelled Spherocytes Cancelled Pappenheimer Bodies Cancelled Sickle Cells Cancelled Target Cells Cancelled Tear Drop Cells Cancelled Ovalocytes Cancelled Stomatocytes Cancelled [place] Bodies Cancelled Echinocytes Cancelled Acanthocytes (Spur) Cancelled Rouleaux Cancelled RBC Agglutinates Cancelled Schistocytes Cancelled Sezary Cell Cancelled PT Cancelled INR Cancelled APTT Cancelled PTT Ratio Cancelled Sodium (136-145) mmol/L Potassium Chloride (98-107) mmol/L Carbon Dioxide (21-32) mmol/L Anion Gap (3-11) BUN (6-23) mg/dl Creatinine (0.6-1.2) mg/dl Est Cr Clr Drug Dosing ml/min Est GFR ( Amer) ml/min Est GFR (Non-Af Amer) ml/min BUN/Creatinine Ratio (10-20) Glucose (70-99(Fasting)) mg/dl Calcium (8.5-10.1) mg/dl Total Bilirubin (0.2-1.0) mg/dl Direct Bilirubin (0-0.2) mg/dl AST ALT (7-52) U/L Alkaline Phosphatase (34-104) U/L Troponin I High Sens (0-14) pg/ml Total Protein (6.0-8.3) gm/dl Albumin (3.4-5.0) gm/dl Globulin (2.5-4.0) gm/dl Albumin/Globulin Ratio (0.9-2) Lipase (11-82) U/L Urine Color Dark Yellow Urine Appearance Turbid A (Clear) Urine pH 5.0 (4.5-7.5) Ur Specific [place] 1.018 (1.000-1.030) Urine Protein 3+ H (Negative) Urine Glucose (UA) Negative (Negative) Urine Ketones Negative (Negative) Urine Blood 3+ H (Negative) Urine Nitrite Positive A (Negative) Urine Bilirubin Negative (Negative) Urine Urobilinogen Negative (Negative) Ur Leukocyte Esterase 2+ H (Negative) Urine WBC (Auto) 10-30 H (0-5) /hpf Urine RBC (Auto) >30 H (0-4) /hpf U Hyaline Cast (Auto) 0 (0-5) /lpf U Epithel Cells (Auto) 20-30 H (0-5) /lpf Urine Bacteria (Auto) 1+ H (Negative) Ur Renal Epithelial Cell Not Reportable Urine Yeast Not Reportable SARS-CoV-2, RNA, NAAT (NEGATIVE) Blood Parasites ID Cancelled 04/01/22 04/01/22 04/01/22 Range/Units 20:28 21:13 21:13 WBC 6.97 RBC 2.97 L Hgb 9.1 L Hct 29.7 L MCV 100.0 MCH 30.6 MCHC 30.6 L RDW Std Deviation 45.2 RDW Coeff of [place] 12.4 Plt Count 306 MPV 9.4 Immature Gran % (Auto) 0.6 Neut % (Auto) 54.9 Lymph % (Auto) 29.4 [place] % (Auto) 9.3 Eos % (Auto) 5.2 Baso % (Auto) 0.6 Neut # (Auto) 3.83 Lymph # (Auto) 2.05 [place] # (Auto) 0.65 Eos # (Auto) 0.36 Baso # (Auto) 0.04 Immature Gran # (Auto) 0.04 H Absolute Nucleated RBC Nucleated RBC % (auto) Neutrophils % (Manual) Band Neutrophils % Lymphocytes % (Manual) Prolymphocyte % Reactive Lymphs % (Man) Monocytes % (Manual) Eosinophils % (Manual) Basophils % (Manual) Metamyelocytes % (Man) Myelocytes % (Man) Promyelocytes % (Man) Blast Cells % (Manual) Plasma Cell % (Manual) Other Cells % Nucleated RBC % Neutrophils # (Manual) Band Neutrophils # Total Absolute Neuts Lymphocytes # (Manual) Prolymphocyte # Reactive Lymphs # Total Abs Lymphocytes Monocytes # (Manual) Eosinophils # (Manual) Basophils # (Manual) Metamyelocytes # (Man) Myelocytes # (Manual) Promyelocytes # (Man) Blast Cells # (Man) Plasma Cell # (Manual) Other Cells # Nucleated RBCs # (Man) Hypersegmented Neuts Hyposegmented Neuts Hypogranular Neuts Large Granular Lymphs # Lrg Granular Lymphs Hairy Cells Smudge Cells Toxic Granulation Toxic Vacuolation Dohle Bodies Phillip Rods Platelet Estimate Hypogranular Platelets Clumped Platelets Giant Platelets Platelet Satelliting RBC Morphology Polychromasia Hypochromasia Poikilocytosis Basophilic Stippling Anisocytosis Microcytosis Macrocytosis Spherocytes Pappenheimer Bodies Sickle Cells Target Cells Tear Drop Cells Ovalocytes Stomatocytes [place] Bodies Echinocytes Acanthocytes (Spur) Rouleaux RBC Agglutinates Schistocytes Sezary Cell PT 11.1 INR 1.0 APTT 25.6 PTT Ratio 0.9 Sodium 142 (136-145) mmol/L Potassium TNP Chloride 111 H (98-107) mmol/L Carbon Dioxide 26 (21-32) mmol/L Anion Gap 5 (3-11) BUN 30 H (6-23) mg/dl Creatinine 2.10 H (0.6-1.2) mg/dl Est Cr Clr Drug Dosing 20.7 ml/min Est GFR ( Amer) 25.7 ml/min Est GFR (Non-Af Amer) 22.1 ml/min BUN/Creatinine Ratio 14.3 (10-20) Glucose 96 (70-99(Fasting)) mg/dl Calcium 10.1 (8.5-10.1) mg/dl Total Bilirubin 0.4 (0.2-1.0) mg/dl Direct Bilirubin (0-0.2) mg/dl AST TNP ALT 12 (7-52) U/L Alkaline Phosphatase 60 (34-104) U/L Troponin I High Sens 7.7 (0-14) pg/ml Total Protein 6.9 (6.0-8.3) gm/dl Albumin 3.4 (3.4-5.0) gm/dl Globulin 3.5 (2.5-4.0) gm/dl Albumin/Globulin Ratio 1.0 (0.9-2) Lipase (11-82) U/L Urine Color Urine Appearance (Clear) Urine pH (4.5-7.5) Ur Specific [place] (1.000-1.030) Urine Protein (Negative) Urine Glucose (UA) (Negative) Urine Ketones (Negative) Urine Blood (Negative) Urine Nitrite (Negative) Urine Bilirubin (Negative) Urine Urobilinogen (Negative) Ur Leukocyte Esterase (Negative) Urine WBC (Auto) (0-5) /hpf Urine RBC (Auto) (0-4) /hpf U Hyaline Cast (Auto) (0-5) /lpf U Epithel Cells (Auto) (0-5) /lpf Urine Bacteria (Auto) (Negative) Ur Renal Epithelial Cell Urine Yeast SARS-CoV-2, RNA, NAAT (NEGATIVE) Blood Parasites ID 04/01/22 04/01/22 Range/Units 21:14 Unknown WBC RBC Hgb Hct MCV MCH MCHC RDW Std Deviation RDW Coeff of [place] Plt Count MPV Immature Gran % (Auto) Neut % (Auto) Lymph % (Auto) [place] % (Auto) Eos % (Auto) Baso % (Auto) Neut # (Auto) Lymph # (Auto) [place] # (Auto) Eos # (Auto) Baso # (Auto) Immature Gran # (Auto) Absolute Nucleated RBC Nucleated RBC % (auto) Neutrophils % (Manual) Band Neutrophils % Lymphocytes % (Manual) Prolymphocyte % Reactive Lymphs % (Man) Monocytes % (Manual) Eosinophils % (Manual) Basophils % (Manual) Metamyelocytes % (Man) Myelocytes % (Man) Promyelocytes % (Man) Blast Cells % (Manual) Plasma Cell % (Manual) Other Cells % Nucleated RBC % Neutrophils # (Manual) Band Neutrophils # Total Absolute Neuts Lymphocytes # (Manual) Prolymphocyte # Reactive Lymphs # Total Abs Lymphocytes Monocytes # (Manual) Eosinophils # (Manual) Basophils # (Manual) Metamyelocytes # (Man) Myelocytes # (Manual) Promyelocytes # (Man) Blast Cells # (Man) Plasma Cell # (Manual) Other Cells # Nucleated RBCs # (Man) Hypersegmented Neuts Hyposegmented Neuts Hypogranular Neuts Large Granular Lymphs # Lrg Granular Lymphs Hairy Cells Smudge Cells Toxic Granulation Toxic Vacuolation Dohle Bodies Phillip Rods Platelet Estimate Hypogranular Platelets Clumped Platelets Giant Platelets Platelet Satelliting RBC Morphology Polychromasia Hypochromasia Poikilocytosis Basophilic Stippling Anisocytosis Microcytosis Macrocytosis Spherocytes Pappenheimer Bodies Sickle Cells Target Cells Tear Drop Cells Ovalocytes Stomatocytes [place] Bodies Echinocytes Acanthocytes (Spur) Rouleaux RBC Agglutinates Schistocytes [place] Cell PT INR APTT PTT Ratio Sodium (136-145) mmol/L Potassium 5.3 H Chloride (98-107) mmol/L Carbon Dioxide (21-32) mmol/L Anion Gap (3-11) BUN (6-23) mg/dl Creatinine (0.6-1.2) mg/dl Est Cr Clr Drug Dosing ml/min Est GFR ( Amer) ml/min Est GFR (Non-Af Amer) ml/min BUN/Creatinine Ratio (10-20) Glucose (70-99(Fasting)) mg/dl Calcium (8.5-10.1) mg/dl Total Bilirubin (0.2-1.0) mg/dl Direct Bilirubin 0.1 (0-0.2) mg/dl AST 11 L ALT (7-52) U/L Alkaline Phosphatase (34-104) U/L Troponin I High Sens (0-14) pg/ml Total Protein (6.0-8.3) gm/dl Albumin (3.4-5.0) gm/dl Globulin (2.5-4.0) gm/dl Albumin/Globulin Ratio (0.9-2) Lipase 188 H (11-82) U/L Urine Color Urine Appearance (Clear) Urine pH (4.5-7.5) Ur Specific [place] (1.000-1.030) Urine Protein (Negative) Urine Glucose (UA) (Negative) Urine Ketones (Negative) Urine Blood (Negative) Urine Nitrite (Negative) Urine Bilirubin (Negative) Urine Urobilinogen (Negative) Ur Leukocyte Esterase (Negative) Urine WBC (Auto) (0-5) /hpf Urine RBC (Auto) (0-4) /hpf U Hyaline Cast (Auto) (0-5) /lpf U Epithel Cells (Auto) (0-5) /lpf Urine Bacteria (Auto) (Negative) Ur Renal Epithelial Cell Urine Yeast SARS-CoV-2, RNA, NAAT NEGATIVE (NEGATIVE) Blood Parasites ID Administered Medications Sodium Chloride (Nss 1000ml) 1,000 mls @ 100 mls/hr IV .Q10H STA Stop: 04/02/22 12:49 Last Admin: 04/02/22 03:04 Dose: 100 mls/hr Documented By: KATHY Discontinued Medications Clonidine HCl (Clonidine Hcl 0.1 Mg Tab) 0.1 mg PO NOW STA Stop: 04/02/22 02:40 Last Admin: 04/02/22 03:04 Dose: 0.1 mg Documented By: KATHY Fentanyl Citrate (Fentanyl Citrate 100 Mcg/2 Ml Vial) 25 mcg IV NOW STA Stop: 04/02/22 01:55 Last Admin: 04/02/22 02:18 Dose: 25 mcg Documented By: KATHY Sodium Chloride (Nss 1000ml) 1,000 mls @ 999 mls/hr IV .Q1H1M ONE Stop: 04/01/22 22:07 Last Infusion: 04/01/22 22:31 Dose: 0 mls/hr Documented By: Admin: 04/01/22 21:17 Dose: 999 mls/hr Documented By: PETROS Acetaminophen (Ofirmev) 1,000 mg in 100 mls @ 400 mls/hr IV NOW STA Stop: 04/01/22 21:21 Last Infusion: 04/01/22 21:50 Dose: 0 mls/hr Documented By: Admin: 04/01/22 21:19 Dose: 400 mls/hr Documented By: PETROS Famotidine (Pepcid 20mg Iv Push) 20 mg in 5 mls @ 2.5 mls/min IV NOW STA Stop: 04/01/22 21:08 Last Admin: 04/01/22 21:19 Dose: 2.5 mls/min Documented By: PETROS Cefepime HCl (Maxipime) 2,000 mg in 20 mls @ 5 mls/min IV NOW STA; Protocol Stop: 04/02/22 02:33 Last Admin: 04/02/22 02:43 Dose: Not Given Documented By: KATHY Aztreonam 1,000 mg/ Dextrose 110 mls @ 100 mls/hr IV NOW STA; Protocol Stop: 04/02/22 03:49 Last Admin: 04/02/22 03:50 Dose: 100 mls/hr Documented By: KATHY Ondansetron HCl (Ondansetron Inj 2 Mg/Ml 2 Ml Vial) 4 mg IV NOW STA Stop: 04/01/22 21:08 Last Admin: 04/01/22 21:18 Dose: 4 mg Documented By: PETROS Sucralfate (Sucralfate 1 Gm/10 Ml Udc) 1 gm PO NOW STA Stop: 04/01/22 23:52 Last Admin: 04/02/22 00:33 Dose: 1 gm Documented By: KATHY Imaging Data Radiologist's Impression: Chest X-Ray 04/01/22 20:31 XR chest 1V portable HISTORY: 76 years-old Female Chest pain, nonspecific acute chest pain COMPARISON: Chest radiograph and CTA chest 01/21/2022 TECHNIQUE: AP view of the chest FINDINGS: Cardiomediastinal and hilar silhouettes are within normal limits. Option cannula is coiled over the right lung apex. No pneumothorax, or large pleural effusion, airspace consolidation or overt pulmonary edema. Degenerative changes of the shoulders and spine. IMPRESSION: No acute process. ACT 112: Negative or not required by law. The above report was generated using voice recognition software. It may contain grammatical, syntax or spelling errors. Electronically signed by: Mani Ramos M.D. 04/01/2022 8:46 PM Abdomen/Pelvis CT 04/01/22 21:06 CT SCAN OF THE ABDOMEN AND PELVIS WITHOUT IV CONTRAST CLINICAL HISTORY: Upper abdominal pain. COMPARISON STUDY: Abdominal CT dated 01/13/2022. TECHNIQUE: CT scan of the abdomen and pelvis is performed from the lung bases to the proximal femora. Images are reviewed in the axial, sagittal, and coronal planes. IV contrast was not administered for this examination as per the referring clinician. Note that the examination was performed in significantly suboptimal fashion without oral and IV contrast. A dose lowering technique was utilized adhering to the principles of ALARA. FINDINGS: Lung bases: The heart is normal in size and without pericardial effusion. There is diminished attenuation of the cardiac blood pool as compared to the myocardi um suggesting anemia. There is trace right pleural effusion. Scarring/atelectasis is noted at both lung bases. A small hiatal hernia is noted. Liver: The unenhanced liver is normal in size, contour, and attenuation. There is no intrahepatic biliary ductal dilatation. Gallbladder: Unremarkable. Spleen: Normal in size and attenuation. Pancreas: There is a 4.5 cm ovoid cystic lesion in the pancreatic body is seen on image #94. This contains internal calcification/debris. The pancreatic tail appears atrophic. The unenhanced proximal pancreas is moderately atrophic and otherwise grossly unremarkable. Adrenal glands: Unremarkable. Kidneys: The unenhanced kidneys are atrophic. Bilateral ureteral stents are in place and there is no hydronephrosis. No calculi are identified in either ureter along the course of the stents. There is a punctate stone/fragment in the interpolar right kidney. No left renal calculi are identified. Urothelial thi ckening is seen in the renal pelvis bilaterally and along both ureters with mild surrounding inflammation. There is no evidence of contour deforming renal mass lesion. Abdominal vasculature: The abdominal aorta is normal in course and caliber noting advanced atherosclerotic calcification. Bowel: There is moderate colonic diverticulosis without CT evidence of acute diverticulitis. No bowel obstruction is seen. Submucosal fat deposition is seen throughout the right colon. This is a nonspecific finding but has been described in the setting of chronic inflammation. The appendix is not identified and reported surgically absent. Peritoneum: There is no intraperitoneal free air or abdominal ascites. There is a fat-containing umbilical hernia. Lymphadenopathy: A mildly enlarged left iliac chain node seen on image #185 measures 12 mm in short axis. This is unchanged. No additional enlarged lymph nodes are seen in the abdomen or pelvis. Pelvic viscera: Evaluation of the pelvis is significantly degraded by streak artifact from a left hip arthroplasty. The bladder is normal as visualized. The uterus is surgically absent. No adnexal lesion is seen. Skeletal structures: The skeletal structures are osteopenic. No lytic or blastic lesions are seen. A left hip arthroplasty is in place. Advanced arthritic change is seen in the right hip. There is moderate lumbosacral spondylosis. There is an age indeterminant impacted fracture of the subcapital right femur. IMPRESSION: 1. Bilateral ureteral stents are in place. There is no hydronephrosis, and no ureteral stones are seen along the course of the stents. 2. Urothelial thickening is seen within the renal pelvis bilaterally and along both ureters. This may be related to the presence of indwelling stents. Correlate with clinical findings and urinalysis for evidence of superimposed urinary tract infection. 3. There is a punctate stone/fragment identified in the right kidney. 4. Again seen is an age indeterminant and likely chronic impacted subcapital fracture of the right femur. 5. Again seen is a pathologically indeterminant 4.5 cm ovoid cystic lesion in the distal pancreatic body. This contains internal calcification/debris. A mucinous cystic neoplasm is not excluded. If not already performed, nonemergent follow-up is recommended. 6. Colonic diverticulosis without CT evidence of acute diverticulitis. 7. Additional findings as above. ACT 112: Negative or not required by law. Electronically signed by: Horacio Motta M.D. 04/01/2022 9:54 PM Discharge Plan Visit Data Chief Complaint: Back Injury/Pain Stated Complaint: back pain that radiates to chest ED Provider: Jl Potter Discharge Problem: Gastritis, Epigastric abdominal pain, Pancreas cyst, CKD (chronic kidney disease) Patient Disposition: Admitted As Inpatient Forms Stand Alone Forms: [facility], Virtual Emergency Department, Important Visit Information Prescriptions Prescriptions: No Action albuterol sulfate 2.5 mg /3 mL (0.083 %) Solution For Nebulization 2.5 mg INHALATION Q4H PRN (Reason: Shortness Of Breath) hydralazine 100 mg Tablet 100 mg PO BID acetaminophen-codeine 300-30 mg Tablet 1 tab PO Q6H PRN (Reason: Moderate Pain (Scale Score 5-6)) alprazolam [Xanax] 0.5 mg Tablet 0.5 mg PO BID PRN (Reason: Anxiety) pantoprazole [Protonix] 40 mg Tablet,Delayed Release (Dr/Ec) 40 mg PO HS mirtazapine [Remeron] 30 mg Tablet 30 mg PO HS ergocalciferol (vitamin D2) [Vitamin D2] 1,250 mcg (50,000 unit) Capsule 1,250 mcg PO WK Rx Instructions: Takes once per week loratadine [Claritin] 10 mg Tablet 10 mg PO QAM Anoro Ellipta 62.5-25 mcg/actuation Blister With Device 1 inh INHALATION QAM albuterol sulfate 90 mcg/actuation Hfa Aerosol Inhaler 2 puff INHALATION DIRECTED PRN (Reason: Shortness Of Breath) loperamide [Imodium A-D] 2 mg capsule 2 mg PO Q6H PRN (Reason: loose stool) Qty: 30 0RF clonidine HCl 0.1 mg Tablet 0.1 mg PO BID carvedilol [Coreg] 25 mg Tablet 25 mg PO BID Rx Instructions: must administer with a meal/food losartan 100 mg Tablet 100 mg PO QAM phenazopyridine [Pyridium] 200 mg tablet 200 mg PO Q8H PRN (Reason: pain) Qty: 10 0RF tamsulosin 0.4 mg capsule 0.4 mg PO HS Qty: 30 0RF oxycodone-acetaminophen [Percocet] 7.5-325 mg tablet 1 tab PO Q8H PRN (Reason: pain) Qty: 7 0RF aspirin 81 mg Tablet,Delayed Release (Dr/Ec) 81 mg PO DAILY Referrals Referrals: Abe Gleason MD [Primary Care Provider] -
[2022-04-02 00:46] LABS: Appearance Urine Turbid (Clear); Bilirubin Urine Negative (Negative); Blood Urine 3+ (Negative); Color Urine Dark Yellow; Glucose Urine UA Negative (Negative); Ketones Urine Negative (Negative); Leukocyte Esterase Urine 2+ (Negative); Nitrite Urine Positive (Negative); Protein Urine 3+ (Negative); Specific Gravity Urine 1.018 (1.000-1.030); Urobilinogen Urine Negative (Negative)
[2022-04-02 01:10] LABS: Epithelial Cell Urine Auto 20-30 /lpf (0-5); RBC Urine Automated >30 /hpf (0-4)
[2022-04-02 01:11] LABS: Bacteria Urine Automated 1+ (Negative); Cast Urine Automated 0 /lpf (0-5)
[2022-04-02] MEDS ORDERED: fentaNYL citrate 100 MCG/2 ML VIAL IV STA (01:54)
[2022-04-02] MEDS ORDERED: CEFEPIME 2,000 MG/20 ML VIAL IV STA (02:30)
[2022-04-02] MEDS ORDERED: cloNIDine HCL 0.1 MG TAB PO STA (02:39)
[2022-04-02] MEDS ORDERED: AZTREONAM 1,000 MG in DEXTROSE 5% 100 ML IV STA (02:44)
[2022-04-02] MEDS ORDERED: SODIUM CHLORIDE 0.9% 1000ML 1,000 ML IV STA (02:50)
--- NOTE | 2022-04-02 03:25 | History & Physical Report ---
Date of Service April 02, 2022 Assessment & Plan (1) Complicated UTI (urinary tract infection): Plan: Recent urologic procedure No sepsis for now ARF on CKD, hyperkalemia secondary to illness Home losartan, recent Bactrim course contributory hypertension, elevated secondary to discomfort and missed nighttime medications COPD, lung status at baseline pancreatic cyst, patient follows with [facility] chronic anemia, hemoglobin at baseline prediabetes, hemoglobin A1c of 5.5 last November 2021 anxiety/mood disorder, suboptimal, denies suicidality past tobacco abuse Medical telemetry Follow urine CS, Azactam Monitor creatinine response to IVF Appropriate to hold home losartan for now until kidney function back to baseline/hyperkalemia resolved. Nephrology consult if without improvement in kidney function Psychiatry consult for depression if patient amenable PT OT eval DVT prophylaxis Heparin subcu DNR as per patient's prior directives. Patient daughter requesting updates from providers. Miss Erica Celeste, contact #[phone]. Text document was generated using eTipping voice recognition software. It may contain grammatical or spelling errors. Kindly contact undersigned for clarification of any documentation item in question. History of Present Illness Chief Complaint: Left flank pain going to her belly Primary Care Provider: Abe Gleason MD History obtained from patient and records. Medical history significant for hypertension, COPD, pancreatic cyst, CRI (baseline creatinine 1.8 from February 2022), GERD, chronic anemia (baseline hemoglobin 9), prediabetes, urolithiasis, chronic back pain, anxiety/mood disorder, past history C. difficile, past tobacco abuse. Last confinement December 2021 for left hydronephrosis secondary to renal calculi. Patient underwent cystoscopy and bilateral stent placement. Patient discharged to rehab facility prior to going home. Last week, patient underwent outpatient cystoscopy, left ureteral nephroscopy with stone extraction/destruction and bilateral stent placement by [facility] urologist. Patient sent home on Bactrim course. Poor appetite the last few months. Admits to depression but denies suicidality. 2 days ago, patient noted achy left-sided flank pain going to her belly with nausea symptoms. No fever, no chills, no hematuria. Usual shortness of breath without chest pain. Patient daughter urged patient to be evaluated at the ER. 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[place], currently residing with her daughter in [place], [place] Allergies Allergy/AdvReac Type Severity Reaction Status Date / Time metronidazole [From Flagyl] Allergy Severe SHORTNESS Verified 04/01/22 20:28 OF BREATH amlodipine AdvReac Intermediate left leg Verified 04/01/22 20:28 numbness cefuroxime AdvReac Intermediate Gastrointestinal Verified 04/01/22 20:28 Upset Cephalosporins AdvReac Intermediate Gastrointestinal Verified 04/01/22 20:28 Upset ciprofloxacin AdvReac Intermediate Gastrointestinal Verified 04/01/22 20:28 Upset erythromycin base AdvReac Intermediate Gastrointestinal Verified 04/01/22 20:28 Upset sulfamethoxazole AdvReac Intermediate hyperkalemi Verified 04/02/22 03:35 [From Bactrim] a trimethoprim [From Bactrim] AdvReac Intermediate hyperkalemi Verified 04/02/22 03:35 a Home Medications Medication Instructions Recorded Confirmed Type acetaminophen 300 mg-codeine 30 mg 1 tab PO Q6H PRN Moderate Pain 12/21/21 04/01/22 History tablet (Scale Score 5-6) albuterol sulfate 2.5 mg/3 mL 2.5 mg inhalation Q4H PRN 12/21/21 04/01/22 History (0.083 %) solution for nebulization Shortness Of Breath albuterol sulfate 90 mcg/actuation 2 puff inhalation DIRECTED PRN 12/21/21 04/01/22 History aerosol inhaler Shortness Of Breath alprazolam 0.5 mg tablet (Xanax) 0.5 mg PO BID PRN Anxiety 12/21/21 04/01/22 History ergocalciferol (vitamin D2) 1,250 1,250 mcg PO WK 12/21/21 04/01/22 History mcg (50,000 unit) capsule (Vitamin D2) hydralazine 100 mg tablet 100 mg PO BID 12/21/21 04/01/22 History loratadine 10 mg tablet (Claritin) 10 mg PO QAM 12/21/21 04/01/22 History mirtazapine 30 mg tablet (Remeron) 30 mg PO HS 12/21/21 04/01/22 History pantoprazole 40 mg tablet,delayed 40 mg PO HS 12/21/21 04/01/22 History release (Protonix) umeclidinium 62.5 mcg-vilanterol 1 inh inhalation QAM 12/21/21 04/01/22 History 25 mcg/actuation powdr for inhalation (Anoro Ellipta) loperamide 2 mg capsule (Imodium 2 mg PO Q6H PRN loose stool #30 01/03/22 04/01/22 Rx A-D) caps carvedilol 25 mg tablet (Coreg) 25 mg PO BID 03/16/22 04/01/22 History clonidine HCl 0.1 mg tablet 0.1 mg PO BID 03/16/22 04/01/22 History losartan 100 mg tablet 100 mg PO QAM 03/16/22 04/01/22 History oxycodone-acetaminophen 7.5 mg-325 1 tab PO Q8H PRN pain #7 tabs 03/24/22 04/01/22 Rx mg tablet (Percocet) phenazopyridine 200 mg tablet 200 mg PO Q8H PRN pain #10 tabs 03/24/22 04/01/22 Rx (Pyridium) tamsulosin 0.4 mg capsule 0.4 mg PO HS #30 caps 03/24/22 04/01/22 Rx aspirin 81 mg tablet,delayed 81 mg PO DAILY 04/01/22 04/01/22 History release 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 pulmonary disease) with chronic respiratory failure per discharge summary records 01/27/22 Degenerative joint disease of right hip Fracture of right hip hx GERD (gastroesophageal reflux disease) History of blood transfusion 01/08 HLD (hyperlipidemia) HTN (hypertension) Kidney stones Migraine On home oxygen therapy 2lpm via n/c PRN Pancreatic cyst monitoring Rhabdomyolysis pt's family denies Surgical History H/O knee surgery Left wide osteotomy for extra cartilidge History of colonoscopy History of esophagogastroduodenoscopy (EGD) History of hip surgery r/t congenital hip deformity as a young child. 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 Beliefs That Will Affect Care: None marital status: / Current Living Situation: Family How many Children do You have: 2 Feels Safe at Home: Yes Assistive Devices: Bedside Commode, Denture - Upper, Denture - Lower, Lift Chair, Oxygen - Continuous, Raised Toilet Seat, Stair Lift, Walker and Wheelchair Review of Systems Review of Systems: As per HPI, all other systems reviewed and negative Physical Exam Physical Exam: GENERAL: Slightly uncomfortable, slightly anxious, obese, no respiratory distress SKIN: Pallor, warm HEENT: Pale palpebral conjunctivae, no ptosis, dry buccal mucosa NECK : Supple, short neck, no tenderness CHEST : Decreased breath sounds, no tenderness HEART : RRR, no obvious murmurs ABDOMEN: Some distention, minimal left-sided abdominal tenderness EXTREMITIES : No LE swelling/tenderness, no other conspicuous deformities noted NEUROLOGIC : Coherent, no facial asymmetry, no other gross focality Results & Data Results & Data ([facility]) Vital Signs (Past 12 Hours) Vital Signs Temp Pulse Pulse Resp BP BP Pulse Ox 04/02/22 03:00 66 19 164/66 H 99 04/02/22 02:30 67 19 171/72 H 99 04/02/22 02:00 20 189/69 H 04/02/22 01:30 66 17 196/69 H 04/02/22 01:00 68 18 173/65 H 99 04/02/22 00:30 71 19 178/71 H 04/02/22 00:00 67 19 183/63 H 97 04/01/22 23:30 66 17 170/54 H 99 04/01/22 23:00 64 22 160/58 H 99 04/01/22 22:40 68 18 180/55 H 98 04/01/22 22:39 98 04/01/22 21:20 71 21 100 04/01/22 21:15 181/63 H 04/01/22 21:15 69 21 100 04/01/22 21:10 72 10 L 100 04/01/22 21:00 71 15 100 04/01/22 21:00 163/71 H 04/01/22 20:50 72 25 H 04/01/22 20:45 71 20 04/01/22 20:45 163/76 H 04/01/22 20:40 72 19 04/01/22 20:31 146/75 H 04/01/22 20:31 77 19 04/01/22 20:30 74 18 04/01/22 20:26 158/109 H 04/01/22 20:26 73 18 04/01/22 20:20 68 23 04/01/22 20:10 69 19 100 04/01/22 20:00 71 20 100 04/01/22 19:53 72 19 100 04/01/22 20:33 04/01/22 20:36 75 25 H 99 04/01/22 20:36 99 04/01/22 20:35 75 25 H 146/75 H 99 04/01/22 19:38 36.8 C 72 16 164/69 H 100 O2 Del Method O2 Flow Rate 04/02/22 03:00 04/02/22 02:30 04/02/22 02:00 04/02/22 01:30 04/02/22 01:00 04/02/22 00:30 04/02/22 00:00 04/01/22 23:30 04/01/22 23:00 04/01/22 22:40 04/01/22 22:39 04/01/22 21:20 04/01/22 21:15 04/01/22 21:15 04/01/22 21:10 04/01/22 21:00 04/01/22 21:00 04/01/22 20:50 04/01/22 20:45 04/01/22 20:45 04/01/22 20:40 04/01/22 20:31 04/01/22 20:31 04/01/22 20:30 04/01/22 20:26 04/01/22 20:26 04/01/22 20:20 04/01/22 20:10 04/01/22 20:00 04/01/22 19:53 04/01/22 20:33 Nasal Cannula 3 04/01/22 20:36 Nasal Cannula 04/01/22 20:36 Nasal Cannula 04/01/22 20:35 Nasal Cannula 04/01/22 19:38 Nasal Cannula 3 Laboratory Results Laboratory Results WBC 6.97 K/ul (4.8-10.8) 04/01/22 21:13 RBC 2.97 M/uL (3.93-5.22) L 04/01/22 21:13 Hgb 9.1 g/dl (12.0-16.0) L 04/01/22 21:13 Hct 29.7 % (34.1-44.9) L 04/01/22 21:13 MCV 100.0 fL (80.0-100.0) 04/01/22 21: MCH 30.6 pg (25.0-34.0) 04/01/22 21: MCHC 30.6 g/dL (32.0-36.0) L 04/01/22 21:13 RDW Std Deviation 45.2 fL (36.4-46.3) 04/01/22 21:13 RDW Coeff of [place] 12.4 % (11.5-14.5) 04/01/22 21:13 Plt Count 306 K/uL (130-400) 04/01/22 21:13 MPV 9.4 fL (9.4-12.3) 04/01/22 21:13 Immature Gran % (Auto) 0.6 % 04/01/22 21:13 Neut % (Auto) 54.9 % 04/01/22 21: Lymph % (Auto) 29.4 % 04/01/22 21: [place] % (Auto) 9.3 % 04/01/22 21:13 Eos % (Auto) 5.2 % 04/01/22 21:13 Baso % (Auto) 0.6 % 04/01/22 21: Neut # (Auto) 3.83 K/uL (1.4-6.5) 01/13/23 21:13 Lymph # (Auto) 2.05 K/uL (1.2-3.4) 04/01/22 21:13 [place] # (Auto) 0.65 K/uL (0.24-0.82) 04/01/22 21:13 Eos # (Auto) 0.36 K/uL (0-0.50) 04/01/22 21:13 Baso # (Auto) 0.04 K/uL (0-0.2) 04/01/22 21:13 Immature Gran # (Auto) 0.04 K/uL (0.00-0.02) H 04/01/22 21:13 Absolute Nucleated RBC Cancelled 04/01/22 20:28 Nucleated RBC % (auto) Cancelled 04/01/22 20:28 Neutrophils % (Manual) Cancelled 04/01/22 20:28 Band Neutrophils % Cancelled 04/01/22 20:28 Lymphocytes % (Manual) Cancelled 04/01/22 20:28 Prolymphocyte % Cancelled 04/01/22 20:28 Reactive Lymphs % (Man) Cancelled 04/01/22 20:28 Monocytes % (Manual) Cancelled 04/01/22 20:28 Eosinophils % (Manual) Cancelled 04/01/22 20:28 Basophils % (Manual) Cancelled 04/01/22 20:28 Metamyelocytes % (Man) Cancelled 04/01/22 20:28 Myelocytes % (Man) Cancelled 04/01/22 20:28 Promyelocytes % (Man) Cancelled 04/01/22 20:28 Blast Cells % (Manual) Cancelled 04/01/22 20:28 Plasma Cell % (Manual) Cancelled 04/01/22 20:28 Other Cells % Cancelled 04/01/22 20:28 Nucleated RBC % Cancelled 04/01/22 20:28 Neutrophils # (Manual) Cancelled 04/01/22 20:28 Band Neutrophils # Cancelled 04/01/22 20:28 Total Absolute Neuts Cancelled 04/01/22 20:28 Lymphocytes # (Manual) Cancelled 04/01/22 20:28 Prolymphocyte # Cancelled 04/01/22 20:28 Reactive Lymphs # Cancelled 04/01/22 20:28 Total Abs Lymphocytes Cancelled 04/01/22 20:28 Monocytes # (Manual) Cancelled 04/01/22 20:28 Eosinophils # (Manual) Cancelled 04/01/22 20:28 Basophils # (Manual) Cancelled 04/01/22 20:28 Metamyelocytes # (Man) Cancelled 04/01/22 20:28 Myelocytes # (Manual) Cancelled 04/01/22 20:28 Promyelocytes # (Man) Cancelled 04/01/22 20:28 Blast Cells # (Man) Cancelled 04/01/22 20:28 Plasma Cell # (Manual) Cancelled 04/01/22 20:28 Other Cells # Cancelled 04/01/22 20:28 Nucleated RBCs # (Man) Cancelled 04/01/22 20:28 Hypersegmented Neuts Cancelled 04/01/22 20:28 Hyposegmented Neuts Cancelled 04/01/22 20:28 Hypogranular Neuts Cancelled 04/01/22 20:28 Large Granular Lymphs Cancelled 04/01/22 20:28 # Lrg Granular Lymphs Cancelled 04/01/22 20:28 Hairy Cells Cancelled 04/01/22 20:28 Smudge Cells Cancelled 04/01/22 20:28 Toxic Granulation Cancelled 04/01/22 20:28 Toxic Vacuolation Cancelled 04/01/22 20:28 Dohle Bodies Cancelled 04/01/22 20:28 Phillip Rods Cancelled 04/01/22 20:28 Platelet Estimate Cancelled 04/01/22 20:28 Hypogranular Platelets Cancelled 04/01/22 20:28 Clumped Platelets Cancelled 04/01/22 20:28 Giant Platelets Cancelled 04/01/22 20:28 Platelet Satelliting Cancelled 04/01/22 20:28 RBC Morphology Cancelled 04/01/22 20:28 Polychromasia Cancelled 04/01/22 20:28 Hypochromasia Cancelled 04/01/22 20:28 Poikilocytosis Cancelled 04/01/22 20:28 Basophilic Stippling Cancelled 04/01/22 20:28 Anisocytosis Cancelled 04/01/22 20:28 Microcytosis Cancelled 04/01/22 20:28 Macrocytosis Cancelled 04/01/22 20:28 Spherocytes Cancelled 04/01/22 20:28 Pappenheimer Bodies Cancelled 04/01/22 20:28 Sickle Cells Cancelled 04/01/22 20:28 Target Cells Cancelled 04/01/22 20:28 Tear Drop Cells Cancelled 04/01/22 20:28 Ovalocytes Cancelled 04/01/22 20:28 Stomatocytes Cancelled 04/01/22 20:28 [place] Bodies Cancelled 04/01/22 20:28 Echinocytes Cancelled 04/01/22 20:28 Acanthocytes (Spur) Cancelled 04/01/22 20:28 Rouleaux Cancelled 04/01/22 20:28 RBC Agglutinates Cancelled 04/01/22 20:28 Schistocytes Cancelled 04/01/22 20:28 Sezary Cell Cancelled 04/01/22 20:28 PT 11.1 Seconds (9.0-12.0) 04/01/22 21:13 INR 1.0 (0.9-1.1) 04/01/22 21:13 APTT 25.6 Seconds (21.0-31.0) 04/01/22 21:13 PTT Ratio 0.9 04/01/22 21:13 Sodium 142 mmol/L (136-145) 04/01/22 20:28 Potassium 5.3 mmol/L (3.5-5.1) H 04/01/22 21:14 Chloride 111 mmol/L (98-107) H 04/01/22 20:28 Carbon Dioxide 26 mmol/L (21-32) 04/01/22 20:28 Anion Gap 5 (3-11) 04/01/22 20:28 BUN 30 mg/dl (6-23) H 04/01/22 20:28 Creatinine 2.10 mg/dl (0.6-1.2) H 04/01/22 20:28 Est Cr Clr Drug Dosing 20.7 ml/min 04/01/22 20:28 Est GFR ( Amer) 25.7 ml/min 04/01/22 20:28 Est GFR (Non-Af Amer) 22.1 ml/min 04/01/22 20:28 BUN/Creatinine Ratio 14.3 (10-20) 04/01/22 20:28 Glucose 96 mg/dl (70-99(Fasting)) 04/01/22 20:28 Calcium 10.1 mg/dl (8.5-10.1) 04/01/22 20:28 Total Bilirubin 0.4 mg/dl (0.2-1.0) 04/01/22 20:28 Direct Bilirubin 0.1 mg/dl (0-0.2) 04/01/22 21:14 AST 11 U/L (13-39) L 04/01/22 21:14 ALT 12 U/L (7-52) 04/01/22 20:28 Alkaline Phosphatase 60 U/L (34-104) 04/01/22 20:28 Troponin I High Sens 7.7 pg/ml (0-14) 04/01/22 20:28 Total Protein 6.9 gm/dl (6.0-8.3) 04/01/22 20:28 Albumin 3.4 gm/dl (3.4-5.0) 04/01/22 20:28 Globulin 3.5 gm/dl (2.5-4.0) 04/01/22 20:28 Albumin/Globulin Ratio 1.0 (0.9-2) 04/01/22 20:28 Lipase 188 U/L (11-82) H 04/01/22 21:14 Urine Color Dark Yellow 04/01/22 00:24 Urine Appearance Turbid (Clear) A 04/01/22 00:24 Urine pH 5.0 (4.5-7.5) 04/01/22 00:24 Ur Specific [place] 1.018 (1.000-1.030) 04/01/22 00:24 Urine Protein 3+ (Negative) H 04/01/22 00:24 Urine Glucose (UA) Negative (Negative) 04/01/22 00:24 Urine Ketones Negative (Negative) 04/01/22 00:24 Urine Blood 3+ (Negative) H 04/01/22 00:24 Urine Nitrite Positive (Negative) A 04/01/22 00:24 Urine Bilirubin Negative (Negative) 04/01/22 00:24 Urine Urobilinogen Negative (Negative) 04/01/22 00:24 Ur Leukocyte Esterase 2+ (Negative) H 04/01/22 00:24 Urine WBC (Auto) 10-30 /hpf (0-5) H 04/01/22 00:24 Urine RBC (Auto) >30 /hpf (0-4) H 04/01/22 00:24 U Hyaline Cast (Auto) 0 /lpf (0-5) 04/01/22 00:24 U Epithel Cells (Auto) 20-30 /lpf (0-5) H 04/01/22 00:24 Urine Bacteria (Auto) 1+ (Negative) H 04/01/22 00:24 Ur Renal Epithelial Cell Not Reportable 04/01/22 00:24 Urine Yeast Not Reportable 04/01/22 00:24 SARS-CoV-2, RNA, NAAT NEGATIVE (NEGATIVE) 04/01/22 Unknown Blood Parasites ID Cancelled 04/01/22 20:28 Impressions Chest X-Ray 04/01/22 20:31 XR chest 1V portable HISTORY: 76 years-old Female Chest pain, nonspecific acute chest pain COMPARISON: Chest radiograph and CTA chest 01/21/2022 TECHNIQUE: AP view of the chest FINDINGS: Cardiomediastinal and hilar silhouettes are within normal limits. Option cannula is coiled over the right lung apex. No pneumothorax, or large pleural effusion, airspace consolidation or overt pulmonary edema. Degenerative changes of the shoulders and spine. IMPRESSION: No acute process. ACT 112: Negative or not required by law. The above report was generated using voice recognition software. It may contain grammatical, syntax or spelling errors. Electronically signed by: Mani Ramos M.D. 04/01/2022 8:46 PM Abdomen/Pelvis CT 04/01/22 21:06 CT SCAN OF THE ABDOMEN AND PELVIS WITHOUT IV CONTRAST CLINICAL HISTORY: Upper abdominal pain. COMPARISON STUDY: Abdominal CT dated 01/13/2022. TECHNIQUE: CT scan of the abdomen and pelvis is performed from the lung bases to the proximal femora. Images are reviewed in the axial, sagittal, and coronal planes. IV contrast was not administered for this examination as per the referring clinician. Note that the examination was performed in significantly suboptimal fashion without oral and IV contrast. A dose lowering technique was utilized adhering to the principles of ALARA. FINDINGS: Lung bases: The heart is normal in size and without pericardial effusion. There is diminished attenuation of the cardiac blood pool as compared to the myocardium suggesting anemia. There is trace right pleural effusion. Scarring/atelectasis is noted at both lung bases. A small hiatal hernia is noted. Liver: The unenhanced liver is normal in size, contour, and attenuation. There is no intrahepatic biliary ductal dilatation. Gallbladder: Unremarkable. Spleen: Normal in size and attenuation. Pancreas: There is a 4.5 cm ovoid cystic lesion in the pancreatic body is seen on image #94. This contains internal calcification/debris. The pancreatic tail appears atrophic. The unenhanced proximal pancreas is moderately atrophic and otherwise grossly unremarkable. Adrenal glands: Unremarkable. Kidneys: The unenhanced kidneys are atrophic. Bilateral ureteral stents are in place and there is no hydronephrosis. No calculi are identified in either ureter along the course of the stents. There is a punctate stone/fragment in the in terpolar right kidney. No left renal calculi are identified. Urothelial thickening is seen in the renal pelvis bilaterally and along both ureters with mild surrounding inflammation. There is no evidence of contour deforming renal mass lesion. Abdominal vasculature: The abdominal aorta is normal in course and caliber noting advanced atherosclerotic calcification. Bowel: There is moderate colonic diverticulosis without CT evidence of acute diverticulitis. No bowel obstruction is seen. Submucosal fat deposition is seen throughout the right colon. This is a nonspecific finding but has been described in the setting of chronic inflammation. The appendix is not identified and reported surgically absent. Peritoneum: There is no intraperitoneal free air or abdominal ascites. There is a fat-containing umbilical hernia. Lymphadenopathy: A mildly enlarged left iliac chain node seen on image #185 measures 12 mm in short axis. This is unchanged. No additional enlarged lymph nodes are seen in the abdomen or pelvis. Pelvic viscera: Evaluation of the pelvis is significantly degraded by streak artifact from a left hip arthroplasty. The bladder is normal as visualized. The uterus is surgically absent. No adnexal lesion is seen. Skeletal structures: The skeletal structures are osteopenic. No lytic or blastic lesions are seen. A left hip arthroplasty is in place. Advanced arthritic change is seen in the right hip. There is moderate lumbosacral spondylosis. There is an age indeterminant impacted fracture of the subcapital right femur. IMPRESSION: 1. Bilateral ureteral stents are in place. There is no hydronephrosis, and no ureteral stones are seen along the course of the stents. 2. Urothelial thickening is seen within the renal pelvis bilaterally and along both ureters. This may be related to the presence of indwelling stents. Correlate with clinical findings and urinalysis for evidence of superimposed urinary tract infection. 3. There is a punctate stone/fragment identified in the right kidney. 4. Again seen is an age indeterminant and likely chronic impacted subcapital fracture of the right femur. 5. Again seen is a pathologically indeterminant 4.5 cm ovoid cystic lesion in the distal pancreatic body. This contains internal calcification/debris. A mucinous cystic neoplasm is not excluded. If not already performed, nonemergent follow-up is recommended. 6. Colonic diverticulosis without CT evidence of acute diverticulitis. 7. Additional findings as above. ACT 112: Negative or not required by law. Electronically signed by: Horacio Motta M.D. 04/01/2022 9:54 PM Diagnostic Findings EKG as per my interpretation :Rate 70, NSR, normal axis, no ischemia
[2022-04-02] MEDS ORDERED: HYDROmorphone INJ 0.5 MG/0.5 ML SYR IV PRN (03:32)
[2022-04-02] MEDS ORDERED: ACETAMINOPHEN 325 MG TAB PO PRN (03:32)
[2022-04-02 04:28] LABS: Creatine Kinase < 10 U/L (26-192); Magnesium 1.6 mg/dl (1.7-2.4)
[2022-04-02] MEDS ORDERED: MAGNESIUM SULFATE / D5W 1 GM/100 ML BAG IV ONE (07:12)
[2022-04-02 07:27] LABS: Basophils # (auto) 0.04 K/uL (0-0.2); Basophils % (auto) 0.7 %; Eosinophils # (auto) 0.35 K/uL (0-0.50); Eosinophils % (auto) 6.6 %; Hematocrit (blood only) 28.5 % (34.1-44.9); Hemoglobin 8.6 g/dl (12.0-16.0); Immature Granulocytes # (auto) 0.02 K/uL (0.00-0.02); Immature Granulocytes % (auto) 0.4 %; Lymphocytes % (auto) 33.7 %; Mean Corpuscular Hemoglobin 30.6 pg (25.0-34.0); Mean Corpuscular Hgb Conc 30.2 g/dL (32.0-36.0); Mean Corpuscular Volume 101.4 fL (80.0-100.0); Mean Platelet Volume 9.2 fL (9.4-12.3); Monocytes # (auto) 0.55 K/uL (0.24-0.82); Monocytes % (auto) 10.3 %; Neutrophils # (auto) 2.58 K/uL (1.4-6.5); Neutrophils % (auto) 48.3 %; Platelet Count 273 K/uL (130-400); RDW Coefficient of Variation 12.2 % (11.5-14.5); RDW Standard Deviation 45.6 fL (36.4-46.3); Red Blood Count 2.81 M/uL (3.93-5.22); White Blood Count 5.34 K/ul (4.8-10.8)
[2022-04-02] MEDS: ALPRAZolam 0.5 MG TABLET PO PRN (07:47)
[2022-04-02 07:48] LABS: BUN Creatinine Ratio 14.6 (10-20); Calcium 9.2 mg/dl (8.5-10.1); Est GFR (African American) 27.6 ml/min; Est GFR (Non-African American) 23.8 ml/min; Potassium 4.9 mmol/L (3.5-5.1)
[2022-04-02] MEDS: HEPARIN SOD 5,000 UNIT/0.5 ML VIAL SQ SCH ×3 (08:26→19:48)
[2022-04-02] MEDS: ASPIRIN 81 MG ECTAB PO SCH (08:27)
[2022-04-02] MEDS: carvediloL 25 MG TAB PO SCH ×2 (08:27→17:50)
[2022-04-02] MEDS: hydrALAZINE TAB 50 MG TAB PO SCH ×2 (08:27→19:49)
[2022-04-02] MEDS: UMECLIDINIUM/VILANTEROL 62.5/25MCG 7 PUFFS/INHALER INH SCH (08:28)
[2022-04-02] MEDS: LORATADINE 10 MG TAB PO SCH (08:28)
[2022-04-02] MEDS ORDERED: hydrALAZINE TAB 50 MG TAB PO SCH (09:00)
[2022-04-02] MEDS: oxyCODONE HCL IR 5 MG TAB (IMMEDIATE RELEASE) PO PRN ×2 (11:30→19:49)
[2022-04-02] MEDS: AZTREONAM 500 MG in DEXTROSE 5% 100 ML IV SCH ×2 (12:35→19:48)
[2022-04-02] MEDS ORDERED: SODIUM CHLORIDE 0.9% 1000ML 1,000 ML IV ONE (12:43)
--- NOTE | 2022-04-02 13:12 | XRay Report ---
XR hip RT 2V w pelvis CLINICAL HISTORY: Femur fracture TECHNIQUE: 2 views of the right hip and single frontal view of the pelvis were obtained. Comparison: Comparison is made to hip radiograph 12/21/2021 FINDINGS: There is no evidence of an acute fracture. Degenerative changes are seen in the right hip joint and l ower lumbar spine. Bilateral nephroureteral stents are seen. Left femoroacetabular hardware noted. No soft tissue abnormality is seen. IMPRESSION: No evidence of acute osseous injury. ACT 112: Negative or not required by law. Electronically signed by: Sherman Coats M.D. 04/02/2022 1:10 PM
--- NOTE | 2022-04-02 14:32 | Hospitalist Progress Note ---
Date of Service April 02, 2022 Assessment & Plan (1) Complicated UTI (urinary tract infection): Plan: Abdominal pain DD: Secondary to Ureteral stent pain, complicated UTI, pancreatic cyst --CT ABD:Bilateral ureteral stents are in place. There is no hydronephrosis, and no ureteral stones are seen along the course of the stents. Urothelial thickening is seen within the renal pelvis bilaterally and along both ureters. This may be related to the presence of indwelling stents. Correlate with clinical findings and urinalysis for evidence of superimposed urinary tract infection. There is a punctate stone/fragment identified in the right kidney. Again seen is an age indeterminant and likely chronic impacted subcapital fracture of the right femur. Again seen is a pathologically indeterminant 4.5 cm ovoid cystic lesion in the distal pancreatic body. This contains internal calcification/debris. A mucinous cystic neoplasm is not excluded. If not already performed, nonemergent follow-up is recommended. Colonic diverticulosis without CT evidence of acute diverticulitis. -Lipase 154 Urine culture pending Pain control Advance diet as tolerated GI consulted Empirically started on Azactam Appreciate urology input: No plan for intervention Bilateral hip pain Hip/Pelvic X ray:No evidence of acute osseous injury. Hip CT pending Orthopedics consulted Pain Control PT/OT as able NANCY on CKD III-IV Cr 2.1>1.9 Hold losartan Continue IV fluids Monitor renal function Were nephrotoxic agents as able Hyperkalemia Secondary to NANCY Monitor potassium levels Resolved COPD Chronic respiratory failure with hypoxia On 3 L supplemental oxygen at baseline Past tobacco abuse Continue home inhalers Hypertension Continue home medications Losartan currently held due to NANCY Prediabetes HbA1C 5.5 Nov 2021 Anxiety/mood disorder Continue home medication DVT Px: Heparin SQ Code Status DNR/DNI Admission and Anticipated Discharge Date Admission Date: April 02, 2022 Subjective Patient is seen and examined within States having abdominal pain predominantly on left side Also reports having back pain radiating down the leg Chronic bilateral hip pain Denies any chest pain, dyspnea, dizziness, nausea Review of Systems Review of Systems: All systems reviewed & are unremarkable except as noted in Subjective Physical Exam Physical Exam: Physical Exam: Vitals signs as noted above General Appearance:Moderately built and nourished, no apparent distress Head: normocephalic, Atraumatic Eyes: normal inspection, EOMI Neck: supple, Trachea midline Respiratory/Chest: Decreased breath sounds, scattered wheeze, No accessory muscle use Cardiovascular: S1, S2, No murmur Abdomen/GI:Soft, tender LLQ predominantly, Bowel sounds present Extremities/Musculoskeletal:normal inspection, no edema Neurologic/Psych:AAOX3, grossly no focal neurological deficits Skin: normal color, warm Results & Data Results & Data ([facility]) Vital Signs (Past 12 Hours) Vital Signs Temp Pulse Pulse Pulse Resp BP BP 04/02/22 06:50 68 04/02/22 10:55 36.7 C 67 21 106/62 04/02/22 07:59 04/02/22 07:59 36.6 C 68 18 178/81 H 04/02/22 06:49 04/02/22 06:00 63 22 182/95 H 04/02/22 05:30 65 16 173/59 H 04/02/22 05:00 65 19 159/63 H 04/02/22 04:30 63 17 154/58 H 04/02/22 04:00 67 20 148/60 H 04/02/22 03:30 70 17 124/56 L 04/02/22 03:00 66 19 164/66 H Pulse Ox O2 Del Method O2 Flow Rate 04/02/22 06:50 04/02/22 10:55 98 Room Air 04/02/22 07:59 Room Air, Nasal Cannula 3 04/02/22 07:59 98 Room Air 04/02/22 06:49 Nasal Cannula 3 04/02/22 06:00 100 04/02/22 05:30 100 04/02/22 05:00 99 04/02/22 04:30 04/02/22 04:00 04/02/22 03:30 04/02/22 03:00 99 Laboratory Results Short CBC 04/01/22 04/01/22 04/02/22 Range/Units 20:28 21:13 07:05 WBC Cancelled 6.97 5.34 Hgb Cancelled 9.1 L 8.6 L Hct Cancelled 29.7 L 28.5 L Plt Count Cancelled 306 273 BMP 04/01/22 04/01/22 04/02/22 20:28 21:14 07:05 Sodium 142 141 Potassium TNP 5.3 H 4.9 Chloride 111 H 111 H Carbon Dioxide 26 27 BUN 30 H 29 H Creatinine 2.10 H 1.98 H Glucose 96 99 Calcium 10.1 9.2 Cardiac Enzymes 04/02/22 Range/Units 03:49 Total Creatine Kinase < 10 L (26-192) U/L Liver Function 04/01/22 04/01/22 Range/Units 20:28 21:14 Total Bilirubin 0.4 (0.2-1.0) mg/dl Direct Bilirubin 0.1 (0-0.2) mg/dl AST TNP 11 L ALT 12 (7-52) U/L Alkaline Phosphatase 60 (34-104) U/L Albumin 3.4 (3.4-5.0) gm/dl Urine 04/01/22 Range/Units 00:24 Urine Color Dark Yellow Urine Appearance Turbid A (Clear) Urine pH 5.0 (4.5-7.5) Ur Specific [place] 1.018 (1.000-1.030) Urine Protein 3+ H (Negative) Urine Glucose (UA) Negative (Negative)
--- NOTE | 2022-04-02 17:20 | Urology Consultation ---
Date of Consultation April 02, 2022 Assessment & Plan (1) Complicated UTI (urinary tract infection): (2) Kidney stone: Plan 76-year-old female who is status post cystoscopy, Cystolithalopaxy, left sided stone treatment and bilateral ureteral stent placement on 03/24/2022. Presented to the hospital with upper back pain radiating to her lower back and was found to have likely a urinary tract infection. Urology consulted as she has bilateral ureteral stents in place. No acute urologic intervention necessary. Stents are in appropriate position and patient is asymptomatic. Recommend treating infection and no need for stent exchange or removal. Continue to trend labs and follow-up cultures. Continue broad-spectrum antibiotics and narrow down once culture results return. Urology to follow peripherally. We will keep outpatient follow-up and can discuss next procedure once she has recovered from her hospitalization History of Present Illness Reason for Consultation: UTI, bilateral ureteral internal and stents Attending Physician: Gilberto Earl MD History of Present Illness 76-year-old female who was admitted due to left flank pain. She recently underwent cystoscopy, Cystolithalopaxy, left ureteroscopy with stone treatment and bilateral ureteral stent placement by Dr. Jimenez on 03/24/2022. She was discharged that day. On admission, her labs showed a white blood cell count of 6.9, hemoglobin of 9.1, potassium 5.3, and creatinine of 2.1 (previous value from 03/09/2022 was 1. 18 and values before that were in the 1.2-1.4 range). Urinalysis showed positive nitrites, 2+ leukocyte Esterase, 10-30 WBCs, greater than 30 RBCs and 1+ bacteria. Cultures are pending. She is currently on aztreonam. CT scan of the abdomen pelvis were performed which I independently reviewed. This shows bilateral ureteral stents in appropriate position. Labs today show white blood cell count of 5.34, hemoglobin of 8.6, and creatinine of 1.98. Patient denies any urologic complaints currently. She reports that she had upper back pain that radiated into her lower back which is why she presented to the hospital. She denies any pain from her stents which she has had for several months and denies any dysuria, hematuria, urgency, frequency or incontinence. Allergies Allergy/AdvReac Type Severity Reaction Status Date / Time metronidazole [From Flagyl] Allergy Severe SHORTNESS Verified 04/01/22 20:28 OF BREATH amlodipine AdvReac Intermediate left leg Verified 04/01/22 20:28 numbness cefuroxime AdvReac Intermediate Gastrointestinal Verified 04/01/22 20:28 Upset Cephalosporins AdvReac Intermediate Gastrointestinal Verified 04/01/22 20:28 Upset ciprofloxacin AdvReac Intermediate Gastrointestinal Verified 04/01/22 20:28 Upset erythromycin base AdvReac Intermediate Gastrointestinal Verified 04/01/22 20:28 Upset sulfamethoxazole AdvReac Intermediate hyperkalemi Verified 04/02/22 03:35 [From Bactrim] a trimethoprim [From Bactrim] AdvReac Intermediate hyperkalemi Verified 04/02/22 03:35 a Home Medications Medication Instructions Recorded Confirmed Type acetaminophen 300 mg-codeine 30 mg 1 tab PO Q6H PRN Moderate Pain 12/21/21 04/01/22 History tablet (Scale Score 5-6) albuterol sulfate 2.5 mg/3 mL 2.5 mg inhalation Q4H PRN 12/21/21 04/01/22 History (0.083 %) solution for nebulization Shortness Of Breath albuterol sulfate 90 mcg/actuation 2 puff inhalation DIRECTED PRN 12/21/21 04/01/22 History aerosol inhaler Shortness Of Breath alprazolam 0.5 mg tablet (Xanax) 0.5 mg PO BID PRN Anxiety 12/21/21 04/01/22 History ergocalciferol (vitamin D2) 1,250 1,250 mcg PO WK 12/21/21 04/01/22 History mcg (50,000 unit) capsule (Vitamin D2) hydralazine 100 mg tablet 100 mg PO BID 12/21/21 04/01/22 History loratadine 10 mg tablet (Claritin) 10 mg PO QAM 12/21/21 04/01/22 History mirtazapine 30 mg tablet (Remeron) 30 mg PO HS 12/21/21 04/01/22 History pantoprazole 40 mg tablet,delayed 40 mg PO HS 12/21/21 04/01/22 History release (Protonix) umeclidinium 62.5 mcg-vilanterol 1 inh inhalation QAM 12/21/21 04/01/22 History 25 mcg/actuation powdr for inhalation (Anoro Ellipta) loperamide 2 mg capsule (Imodium 2 mg PO Q6H PRN loose stool #30 01/03/22 04/01/22 Rx A-D) caps carvedilol 25 mg tablet (Coreg) 25 mg PO BID 03/16/22 04/01/22 History clonidine HCl 0.1 mg tablet 0.1 mg PO BID 03/16/22 04/01/22 History losartan 100 mg tablet 100 mg PO QAM 03/16/22 04/01/22 History oxycodone-acetaminophen 7.5 mg-325 1 tab PO Q8H PRN pain #7 tabs 03/24/22 04/01/22 Rx mg tablet (Percocet) phenazopyridine 200 mg tablet 200 mg PO Q8H PRN pain #10 tabs 03/24/22 04/01/22 Rx (Pyridium) tamsulosin 0.4 mg capsule 0.4 mg PO HS #30 caps 03/24/22 04/01/22 Rx aspirin 81 mg tablet,delayed 81 mg PO DAILY 04/01/22 04/01/22 History release Patient History Medical History 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 pulmonary disease) with chronic respiratory failure per discharge summary records 01/27/22 Degenerative joint disease of right hip Fracture of right hip hx GERD (gastroesophageal reflux disease) History of blood transfusion 01/08 HLD (hyperlipidemia) HTN (hypertension) Kidney stones Migraine On home oxygen therapy 2lpm via n/c PRN Pancreatic cyst monitoring Rhabdomyolysis pt's family denies Surgical History H/O knee surgery Left wide osteotomy for extra cartilidge History of colonoscopy History of esophagogastroduodenoscopy (EGD) History of hip surgery r/t congenital hip deformity as a young child. History of removal of ovarian cyst History of total hip arthroplasty right Hx of appendectomy Hx of hernia repair Hx of hysterectomy Family History Mother Coronary heart disease Father Coronary heart disease Brother Diabetes Brother Coronary heart disease Other Heart disease Hypertension No family history of adverse response to anesthesia Social History Smoking Status: Former smoker Cigarettes Per Day: 2; Second Hand Exposure: No; Hx Alcohol Use: No Hx Substance Use: No Preferred Language: Uzbek Communication Ability: Effective Visual Impairment: No Limitations Card Feeder Required: No Beliefs That Will Affect Care: None marital status: / Current Living Situation: Family Current Living Situation Comment: daughter How many Children do You have: 2 Other Information That Helps Us Care for You: No Feels Safe at Home: Yes Safety Concerns: Feels Safe At This Time Assistive Devices: Denture - Upper, Denture - Lower, Glasses, Oxygen - Continuous and Walker Review of Systems Review of Systems: 14 point review of systems negative outside of what is listed above in HPI Physical Exam Physical Exam: General: Alert and oriented, no acute distress HEENT: Normocephalic, mucous membranes moist Pulmonary: Nonlabored respirations Abdomen: Nondistended soft, nontender Extremities: Moves all 4 spontaneously Neuro: No gross deficits Skin: Warm, dry, no rashes noted Results & Data ([facility]) Vital Signs (Past 12 Hours) Vital Signs Temp Pulse Pulse Pulse Resp BP BP 04/02/22 16:00 36.7 C 67 22 146/68 H 04/02/22 15:05 63 04/02/22 06:50 68 04/02/22 10:55 36.7 C 67 21 106/62 04/02/22 07:59 04/02/22 07:59 36.6 C 68 18 178/81 H 04/02/22 06:49 04/02/22 06:00 63 22 182/95 H 04/02/22 05:30 65 16 173/59 H Pulse Ox O2 Del Method O2 Flow Rate 04/02/22 16:00 99 Nasal Cannula 3.0 04/02/22 15:05 04/02/22 06:50 04/02/22 10:55 98 Room Air 04/02/22 07:59 Room Air, Nasal Cannula 3 04/02/22 07:59 98 Room Air 04/02/22 06:49 Nasal Cannula 3 04/02/22 06:00 100 04/02/22 05:30 100 PG Care Time/CCT Total # of Minutes Spent Total Time Spent with Patient: Total time spent is greater than 50% in coordination of care (as documented) at patient's floor/unit and/or counseling patient: Coding Level of Care Code 62837 INT INP/OBS CARE 2/55MIN Diagnoses Complicated UTI (urinary tract infection) N39.0 Kidney stone N20.0
--- NOTE | 2022-04-02 19:05 | CT Scan Report ---
CT hip RT wo con CLINICAL HISTORY: pls format recons and bone windows from prior CT TECHNIQUE: Multidetector row helical CT of the right hip was performed without intravenous contrast. Coronal and sagittal reformations were obtained. Automated dose lowering techniques and/or adjustment according to patient size were utilized for this examination. Comparison: Comparison is made to CT abdomen pelvis 04/01/2022 FINDINGS: The osseous structures are without fracture or dislocation. Extensive degenerative changes are seen i n the right femoroacetabular joint with prominent osteophyte formation. This distorts the normal cont our of the right femoral neck. However no cortical disruption is seen and the trabeculation appears i nterrupted. There are, however, likely chronic changes of impacted subcapital fracture. The soft tiss ues are unremarkable. IMPRESSION: Extensive degenerative changes and changes of remote impacted subcapital fracture. However there is n o evidence of acute fracture. ACT 112: Negative or not required by law. Electronically signed by: Sherman Coats M.D. 04/02/2022 7:03 PM
[2022-04-02] MEDS: TAMSULOSIN HCL 0.4 MG CAP PO SCH (19:48)
[2022-04-02] MEDS: cloNIDine HCL 0.1 MG TAB PO SCH (19:49)
[2022-04-02] MEDS: MIRTAZAPINE TAB 15 MG TAB PO SCH (19:49)
[2022-04-02] MEDS: PANTOprazole 40 MG TAB PO SCH (19:50)
--- NOTE | 2022-04-02 21:58 | Gastrointestinal Consultation ---
Date of Consultation April 02, 2022 Assessment & Plan (1) Epigastric abdominal pain: Continue Pantoprazole 40 mg by mouth daily Avoid trigger foods which worsen symptoms Advance diet as tolerated Please contact us, if symptoms worsen (2) Pancreas cyst: Can proceed with outpatient workup with EUS, though patient has not been agreeable to this in the past (3) Complicated UTI (urinary tract infection): I believe this is the source of her pain and symptoms Will Defer to Primary team and Urology History of Present Illness Reason for Consultation: Abdominal pain Pancreatic Cyst Attending Physician: Gilberto Earl MD History of Present Illness Aruna Dewey is a pleasant 76 yo CF with an extensive past medical history who underwent a bilateral ureteral stent exchange last week by urology. She presented to the ER in the hair sample matcher with complaints of epigastric pain which radiated to her left flank. Imaging studies showed several urological findings, as well as a cystic lesion in the distal pancreas, which has been present for several years. Her UA findings were consistent with a UTI, and she was subsequently admitted, and placed on IV abx therapy. She was seen by Urology, who did not feel there was any urgent procedure which needed to be performed. At the time I saw her, she was feeling slightly better. She still complained of the left flank pain, but notes that it has decreased to a 3/10 in intensity. She has not had any fevers, chills, nausea, vomiting, diarrhea, dysphagia, odynophagia, hematemesis, melena, or hematochezia. She has tolerated minimal PO intake. She admits to having intermittent GERD symptoms at home, but this pain was different than that which she associates with GERD. She has no further complaints. Allergies Allergy/AdvReac Type Severity Reaction Status Date / Time metronidazole [From Flagyl] Allergy Severe SHORTNESS Verified 04/01/22 20:28 OF BREATH amlodipine AdvReac Intermediate left leg Verified 04/01/22 20:28 numbness cefuroxime AdvReac Intermediate Gastrointestinal Verified 04/01/22 20:28 Upset Cephalosporins AdvReac Intermediate Gastrointestinal Verified 04/01/22 20:28 Upset ciprofloxacin AdvReac Intermediate Gastrointestinal Verified 04/01/22 20:28 Upset erythromycin base AdvReac Intermediate Gastrointestinal Verified 04/01/22 20:28 Upset sulfamethoxazole AdvReac Intermediate hyperkalemi Verified 04/02/22 03:35 [From Bactrim] a trimethoprim [From Bactrim] AdvReac Intermediate hyperkalemi Verified 04/02/22 03:35 a Home Medications Medication Instructions Recorded Confirmed Type acetaminophen 300 mg-codeine 30 mg 1 tab PO Q6H PRN Moderate Pain 12/21/21 04/01/22 History tablet (Scale Score 5-6) albuterol sulfate 2.5 mg/3 mL 2.5 mg inhalation Q4H PRN 12/21/21 04/01/22 History (0.083 %) solution for nebulization Shortness Of Breath albuterol sulfate 90 mcg/actuation 2 puff inhalation DIRECTED PRN 12/21/21 04/01/22 History aerosol inhaler Shortness Of Breath alprazolam 0.5 mg tablet (Xanax) 0.5 mg PO BID PRN Anxiety 12/21/21 04/01/22 History ergocalciferol (vitamin D2) 1,250 1,250 mcg PO WK 12/21/21 04/01/22 History mcg (50,000 unit) capsule (Vitamin D2) hydralazine 100 mg tablet 100 mg PO BID 12/21/21 04/01/22 History loratadine 10 mg tablet (Claritin) 10 mg PO QAM 12/21/21 04/01/22 History mirtazapine 30 mg tablet (Remeron) 30 mg PO HS 12/21/21 04/01/22 History pantoprazole 40 mg tablet,delayed 40 mg PO HS 12/21/21 04/01/22 History release (Protonix) umeclidinium 62.5 mcg-vilanterol 1 inh inhalation QAM 12/21/21 04/01/22 History 25 mcg/actuation powdr for inhalation (Anoro Ellipta) loperamide 2 mg capsule (Imodium 2 mg PO Q6H PRN loose stool #30 01/03/22 04/01/22 Rx A-D) caps carvedilol 25 mg tablet (Coreg) 25 mg PO BID 03/16/22 04/01/22 History clonidine HCl 0.1 mg tablet 0.1 mg PO BID 03/16/22 04/01/22 History losartan 100 mg tablet 100 mg PO QAM 03/16/22 04/01/22 History oxycodone-acetaminophen 7.5 mg-325 1 tab PO Q8H PRN pain #7 tabs 03/24/22 04/01/22 Rx mg tablet (Percocet) phenazopyridine 200 mg tablet 200 mg PO Q8H PRN pain #10 tabs 03/24/22 04/01/22 Rx (Pyridium) tamsulosin 0.4 mg capsule 0.4 mg PO HS #30 caps 03/24/22 04/01/22 Rx aspirin 81 mg tablet,delayed 81 mg PO DAILY 04/01/22 04/01/22 History release Patient History Medical History 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 pulmonary disease) with chronic respiratory failure per discharge summary records 01/27/22 Degenerative joint disease of right hip Fracture of right hip hx GERD (gastroesophageal reflux disease) History of blood transfusion 01/08 HLD (hyperlipidemia) HTN (hypertension) Kidney stones Migraine On home oxygen therapy 2lpm via n/c PRN Pancreatic cyst monitoring Rhabdomyolysis pt's family denies Surgical History H/O knee surgery Left wide osteotomy for extra cartilidge History of colonoscopy History of esophagogastroduodenoscopy (EGD) History of hip surgery r/t congenital hip deformity as a young child. History of removal of ovarian cyst History of total hip arthroplasty right Hx of appendectomy Hx of hernia repair Hx of hysterectomy Family History Mother Coronary heart disease Father Coronary heart disease Brother Diabetes Brother Coronary heart disease Other Heart disease Hypertension No family history of adverse response to anesthesia Social History Smoking Status: Former smoker Cigarettes Per Day: 2; Second Hand Exposure: No; Hx Alcohol Use: No Hx Substance Use: No Preferred Language: Cymraes Communication Ability: Effective Visual Impairment: No Limitations Mastic Sprayer Required: No Beliefs That Will Affect Care: None marital status: / Current Living Situation: Family Current Living Situation Comment: daughter How many Children do You have: 2 Other Information That Helps Us Care for You: No Feels Safe at Home: Yes Safety Concerns: Feels Safe At This Time Assistive Devices: Denture - Upper, Denture - Lower, Glasses, Oxygen - Continuous and Walker Review of Systems Review of Systems: All systems reviewed & are unremarkable except as noted in Subjective Physical Exam Constitutional: + ill appearing (Chronic) and + obese Eyes: + anicteric sclerae Respiratory: normal respiratory effort, lungs clear to auscultation Cardiovascular: RRR, no murmur, no edema Gastrointestinal (Abdomen): Inspection/Auscultation: abdomen normal to inspection and normal bowel sounds Percussion/Palpation: + abdomen tender (LUQ) and abdomen soft Skin: no rashes, warm and dry Psychiatric: A+Ox3, euthymic affect Results & Data ([facility]) Vital Signs (Past 12 Hours) Vital Signs Temp Pulse Pulse Pulse Resp BP Pulse Ox 04/02/22 19:54 36.7 C 66 18 160/62 H 99 04/02/22 16:00 36.7 C 67 22 146/68 H 99 04/02/22 15:05 63 04/02/22 10:55 36.7 C 67 21 106/62 98 O2 Del Method O2 Flow Rate 04/02/22 19:54 Nasal Cannula 3 04/02/22 16:00 Nasal Cannula 3.0 04/02/22 15:05 04/02/22 10:55 Room Air PG Care Time/CCT Total # of Minutes Spent Total Time Spent with Patient: Total time spent is greater than 50% in coordination of care (as documented) at patient's floor/unit and/or counseling patient: Coding Level of Care Code INP/OBS CONSULT LVL 3, 45 MIN Diagnoses Epigastric abdominal pain R10.13 Pancreas cyst K86.2 Complicated UTI (urinary tract infection) N39.0
[2022-04-03] MEDS: AZTREONAM 500 MG in DEXTROSE 5% 100 ML IV SCH ×3 (04:15→19:32)
[2022-04-03] MEDS: HEPARIN SOD 5,000 UNIT/0.5 ML VIAL SQ SCH ×3 (05:05→19:33)
[2022-04-03 06:25] LABS: Hematocrit (blood only) 25.2 % (34.1-44.9); Hemoglobin 7.7 g/dl (12.0-16.0); Mean Corpuscular Hgb Conc 30.6 g/dL (32.0-36.0); Mean Corpuscular Volume 101.6 fL (80.0-100.0); Mean Platelet Volume 9.5 fL (9.4-12.3); Platelet Count 230 K/uL (130-400); RDW Coefficient of Variation 12.1 % (11.5-14.5); RDW Standard Deviation 45.8 fL (36.4-46.3); Red Blood Count 2.48 M/uL (3.93-5.22); White Blood Count 5.42 K/ul (4.8-10.8)
[2022-04-03 07:08] LABS: BUN Creatinine Ratio 15.3 (10-20); Calcium 8.8 mg/dl (8.5-10.1); Est GFR (African American) 33.1 ml/min; Est GFR (Non-African American) 28.6 ml/min; Magnesium 1.6 mg/dl (1.7-2.4)
[2022-04-03] MEDS: hydrALAZINE TAB 50 MG TAB PO SCH ×2 (07:59→19:32)
[2022-04-03] MEDS: cloNIDine HCL 0.1 MG TAB PO SCH ×2 (07:59→19:32)
[2022-04-03] MEDS: ASPIRIN 81 MG ECTAB PO SCH (07:59)
[2022-04-03] MEDS: carvediloL 25 MG TAB PO SCH ×2 (07:59→16:45)
[2022-04-03] MEDS: UMECLIDINIUM/VILANTEROL 62.5/25MCG 7 PUFFS/INHALER INH SCH (08:00)
[2022-04-03] MEDS: LORATADINE 10 MG TAB PO SCH (08:00)
[2022-04-03] MEDS: ALPRAZolam 0.5 MG TABLET PO PRN ×2 (08:58→19:51)
[2022-04-03] MEDS: MAGNESIUM CHLORIDE W/CALCIUM 64MG DELAYED REL TAB PO SCH ×2 (09:56→19:34)
--- NOTE | 2022-04-03 11:17 | History and Physical Report ---
CHIEF COMPLAINT: Special attention to right hip possible fracture. HISTORY OF PRESENT ILLNESS: This is a 76-year-old female, who was admitted to the hospitalist service with a complicated UTI. CAT scan was performed of the abdomen, which showed incidentally noted possible impacted subcapital fracture of the right femur. PAST MEDICAL HISTORY: 1. History of UTI. 2. History of acute on chronic kidney disease, hyperkalemia. 3. COPD. 4. Hypertension. 5. Prediabetes. REVIEW OF RADIOGRAPHIC STUDIES: I personally reviewed a CAT scan of the abdomen. I asked Radiology to reformat 3D reconstructions and bone windows specific to the hip. Focusing on the hip, these do not show evidence of acute fracture. They do show possible old subcapital fracture as well as significant degenerative changes. CAT scan of the abdomen on 12/2021 did show similar changes. PHYSICAL EXAMINATION: Right hip exam, she has no pain with log roll. She has no significant pain or crepitation with range of motion of the hip. She can flex and extend the ankle and knee. Her compartments are soft. ASSESSMENT: 1. Right hip chronic degenerative disease. 2. Possible old subcapital fracture, no evidence of acute fracture. 3. Status post left total hip surgery. PLAN: I discussed the findings and treatment. In regard to her right hip, she has no evidence of acute fracture. I do feel that she may have possibly had old chronic fracture deformity, which has healed. She has significant degenerative changes in the hip as well. At this point in time, she does not need any acute treatment. Should she develop increasing hip pain, she can see [facility] as an outpatient and total hip arthroplasty can be contemplated. No further orthopedic treatment needed at this hospital visit. Orthopedics will sign off. Please call if you have any questions. Job ID: [id number] [facility]
[2022-04-03] MEDS: ALBUT/IPRATROP 3MG/0.5MG NEB 3 ML VIAL NEB PRN (11:52)
[2022-04-03] MEDS: oxyCODONE HCL IR 5 MG TAB (IMMEDIATE RELEASE) PO PRN (12:22)
--- NOTE | 2022-04-03 15:23 | Hospitalist Progress Note ---
Date of Service April 03, 2022 Assessment & Plan (1) Complicated UTI (urinary tract infection): Plan: Abdominal pain DD: Secondary to Ureteral stent pain, complicated UTI, pancreatic cyst --CT ABD:Bilateral ureteral stents are in place. There is no hydronephrosis, and no ureteral stones are seen along the course of the stents. Urothelial thickening is seen within the renal pelvis bilaterally and along both ureters. This may be related to the presence of indwelling stents. Correlate with clinical findings and urinalysis for evidence of superimposed urinary tract infection. There is a punctate stone/fragment identified in the right kidney. Again seen is an age indeterminant and likely chronic impacted subcapital fracture of the right femur. Again seen is a pathologically indeterminant 4.5 cm ovoid cystic lesion in the distal pancreatic body. This contains internal calcification/debris. A mucinous cystic neoplasm is not excluded. If not already performed, nonemergent follow-up is recommended. Colonic diverticulosis without CT evidence of acute diverticulitis. -Lipase 154 Urine culture probable skin darren Pain control Advance diet as tolerated Appreciate GI Input on Azactam Appreciate urology input: No plan for intervention currently, needs outpatient follow-up for stent removal Appreciate GI input: Recommends outpatient endoscopic ultrasound Right hip chronic degenerative disease Possible old subcapital fracture S/P left total hip surgery Complains of bilateral hip pain Hip/Pelvic X ray:No evidence of acute osseous injury. Hip CT: Extensive degenerative changes and changes of remote impacted subcapital fracture. However there is no evidence of acute fracture. 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 Cr 2.1>1.9>1.7 Hold losartan Received IV fluids Monitor renal function Avoid nephrotoxic agents as able Hyperkalemia Secondary to NANCY Monitor potassium levels Resolved Hypomagnesemia Replace electrolytes as needed Monitor COPD Chronic respiratory failure with hypoxia On 3 L supplemental oxygen at baseline Past tobacco abuse Continue home inhalers Hypertension Continue home medications Losartan currently held due to NANCY Prediabetes HbA1C 5.5 Nov 2021 Anxiety/mood disorder Continue home medication DVT Px: Heparin SQ Code Status DNR/DNI Disposition PT OT prior to discharge Admission and Anticipated Discharge Date Admission Date: April 02, 2022 Subjective Patient is seen and examined at bedside Still has abdominal pain and left rib pain Reports abdominal pain worsens with food intake Feels tired Has chronic back, hip pain Denies any chest pain, dyspnea, dizziness, nausea Review of Systems Review of Systems: All systems reviewed & are unremarkable except as noted in Subjective Physical Exam Physical Exam: Physical Exam: Vitals signs as noted above General Appearance:Moderately built and nourished, no apparent distress Head: normocephalic, Atraumatic Eyes: normal inspection, EOMI Neck: supple, Trachea midline Respiratory/Chest: Decreased breath sounds, scattered wheeze, No accessory muscle use Cardiovascular: S1, S2, No murmur Abdomen/GI:Soft, tender LLQ predominantly, Bowel sounds present Extremities/Musculoskeletal:normal inspection, no edema Neurologic/Psych:AAOX3, grossly no focal neurological deficits Skin: normal color, warm Results & Data Results & Data ([facility]) Vital Signs (Past 12 Hours) Vital Signs Temp Pulse Pulse Pulse Resp BP Pulse Ox 04/03/22 11:54 81 16 97 04/03/22 11:44 36.8 C 63 19 129/66 99 04/03/22 11:10 04/03/22 07:49 78 04/03/22 07:00 58 L 04/03/22 06:45 36.7 C 67 18 158/63 H 98 O2 Del Method O2 Flow Rate 04/03/22 11:54 Nasal Cannula 3 04/03/22 11:44 Nasal Cannula 3.0 04/03/22 11:10 Nasal Cannula 3 04/03/22 07:49 04/03/22 07:00 04/03/22 06:45 Nasal Cannula 2.5 Laboratory Results Short CBC 04/03/22 Range/Units 05:49 WBC 5.42 (4.8-10.8) K/ul Hgb 7.7 L (12.0-16.0) g/dl Hct 25.2 L (34.1-44.9) % Plt Count 230 (130-400) K/uL BMP 04/03/22 05:49 Sodium 139 Potassium 5.0 Chloride 112 H Carbon Dioxide 25 BUN 26 H Creatinine 1.70 H Glucose 88 Calcium 8.8
[2022-04-03] MEDS: TAMSULOSIN HCL 0.4 MG CAP PO SCH (19:33)
[2022-04-03] MEDS: MIRTAZAPINE TAB 15 MG TAB PO SCH (19:33)
[2022-04-03] MEDS: PANTOprazole 40 MG TAB PO SCH (19:34)
--- NOTE | 2022-04-03 21:12 | Electrocardiogram Report ---
Test Reason : Blood Pressure : / mmHG Vent. Rate : 071 BPM Atrial Rate : 071 BPM P-R Int : 148 ms QRS Dur : 080 ms QT Int : 380 ms P-R-T Axes : 024 044 072 degrees QTc Int : 412 ms Normal sinus rhythm Normal ECG When compared with ECG of 21-JAN-2022 09:57, No significant change was found Confirmed by Fish Avelar ([id number]) on 04/03/2022 9:11:46 PM Referred By: REFERRED SELF Confirmed By:Fish Avelar
[2022-04-04] MEDS: AZTREONAM 500 MG in DEXTROSE 5% 100 ML IV SCH ×3 (04:30→19:20)
[2022-04-04] MEDS: HEPARIN SOD 5,000 UNIT/0.5 ML VIAL SQ SCH ×2 (05:36→12:51)
[2022-04-04 06:37] LABS: Hematocrit (blood only) 24.7 % (34.1-44.9); Hemoglobin 7.6 g/dl (12.0-16.0); Mean Corpuscular Hgb Conc 30.8 g/dL (32.0-36.0); Mean Corpuscular Volume 100.8 fL (80.0-100.0); Mean Platelet Volume 9.6 fL (9.4-12.3); Platelet Count 212 K/uL (130-400); RDW Standard Deviation 44.7 fL (36.4-46.3); Red Blood Count 2.45 M/uL (3.93-5.22); White Blood Count 4.65 K/ul (4.8-10.8)
[2022-04-04 06:59] LABS: BUN Creatinine Ratio 14.5 (10-20); Calcium 9.1 mg/dl (8.5-10.1); Creatinine Clr Calc Pharmacy 23.6 ml/min; Est GFR (African American) 29.7 ml/min; Est GFR (Non-African American) 25.6 ml/min; Magnesium 1.7 mg/dl (1.7-2.4); Potassium 4.8 mmol/L (3.5-5.1)
[2022-04-04] MEDS: oxyCODONE HCL IR 5 MG TAB (IMMEDIATE RELEASE) PO PRN ×2 (08:27→19:22)
[2022-04-04] MEDS: ASPIRIN 81 MG ECTAB PO SCH (08:27)
[2022-04-04] MEDS: LORATADINE 10 MG TAB PO SCH (08:27)
[2022-04-04] MEDS: carvediloL 25 MG TAB PO SCH ×2 (08:28→16:07)
[2022-04-04] MEDS: UMECLIDINIUM/VILANTEROL 62.5/25MCG 7 PUFFS/INHALER INH SCH (08:28)
[2022-04-04] MEDS: cloNIDine HCL 0.1 MG TAB PO SCH ×2 (08:28→19:20)
[2022-04-04] MEDS: hydrALAZINE TAB 50 MG TAB PO SCH ×2 (08:28→19:21)
[2022-04-04] MEDS: MAGNESIUM CHLORIDE W/CALCIUM 64MG DELAYED REL TAB PO SCH ×2 (08:28→19:22)
[2022-04-04] MEDS ORDERED: SODIUM CHLORIDE 0.9% 1000ML 1,000 ML IV ONE (09:10)
[2022-04-04 10:01] LABS: Iron 65 mcg/dl (35-150); Total Iron Binding Cap Calc 177 mcg/dl (250-450); Transferrin (FE) Percent Satur 37 % (15-50); Unsaturated Iron Binding Cap 112 mcg/dl (155-355)
[2022-04-04] MEDS ORDERED: POLYETHYLENE (MIRALAX) 17 GM PACK PO PRN (10:31)
[2022-04-04] MEDS: DOCUSATE SODIUM 100 MG CAP PO SCH ×2 (11:26→19:23)
[2022-04-04] MEDS: ALPRAZolam 0.5 MG TABLET PO PRN (12:51)
--- NOTE | 2022-04-04 16:06 | Hospitalist Progress Note ---
Date of Service April 04, 2022 Assessment & Plan (1) Complicated UTI (urinary tract infection): Plan: Abdominal pain DD: Secondary to Ureteral stent pain, complicated UTI, pancreatic cyst --CT ABD:Bilateral ureteral stents are in place. There is no hydronephrosis, and no ureteral stones are seen along the course of the stents. Urothelial thickening is seen within the renal pelvis bilaterally and along both ureters. This may be related to the presence of indwelling stents. Correlate with clinical findings and urinalysis for evidence of superimposed urinary tract infection. There is a punctate stone/fragment identified in the right kidney. Again seen is an age indeterminant and likely chronic impacted subcapital fracture of the right femur. Again seen is a pathologically indeterminant 4.5 cm ovoid cystic lesion in the distal pancreatic body. This contains internal calcification/debris. A mucinous cystic neoplasm is not excluded. If not already performed, nonemergent follow-up is recommended. Colonic diverticulosis without CT evidence of acute diverticulitis. -Lipase 154 Urine culture probable skin darren Pain control Advance diet as tolerated Appreciate GI Input on Azactam to complete 3 day course Appreciate urology input: No plan for intervention currently, needs outpatient follow-up for stent removal Appreciate GI input: Recommends endoscopic ultrasound Patient/family prefers endoscopic ultrasound to be done while hospitalized as patient having poor oral intake secondary to the pain, dehydration and recurrent hospitalizations Bowel regimen to help with constipation Right hip chronic degenerative disease Possible old subcapital fracture S/P left total hip surgery Complains of bilateral hip pain Hip/Pelvic X ray:No evidence of acute osseous injury. Hip CT: Extensive degenerative changes and changes of remote impacted subcapital fracture. However there is no evidence of acute fracture. 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 Cr 2.1>1.9>1.8 Hold losartan Received IV fluids Monitor renal function Avoid nephrotoxic agents as able Hyperkalemia Secondary to NANCY Monitor potassium levels Resolved Hypomagnesemia Replace electrolytes as needed Monitor COPD Chronic respiratory failure with hypoxia On 3 L supplemental oxygen at baseline Past tobacco abuse Continue home inhalers Hypertension Continue home medications Losartan currently held due to NANCY Prediabetes HbA1C 5.5 Nov 2021 Anxiety/mood disorder Continue home medication DVT Px: Heparin SQ Code Status DNR/DNI Disposition PT OT prior to discharge Admission and Anticipated Discharge Date Admission Date: April 02, 2022 Subjective Patient is seen and examined at bedside Reports persistent abdominal pain, constipation Has chronic back, hip pain Denies any chest pain, dyspnea, dizziness, nausea Discussed with patient's daughter over the phone and also with GI No other complaints Review of Systems Review of Systems: All systems reviewed & are unremarkable except as noted in Subjective Physical Exam Physical Exam: Physical Exam: Vitals signs as noted above General Appearance:Moderately built and nourished, no apparent distress Head: normocephalic, Atraumatic Eyes: normal inspection, EOMI Neck: supple, Trachea midline Respiratory/Chest: Decreased breath sounds, scattered wheeze, No accessory muscle use Cardiovascular: S1, S2, No murmur Abdomen/GI:Soft, tender LLQ predominantly, Bowel sounds present Extremities/Musculoskeletal:normal inspection, no edema Neurologic/Psych:AAOX3, grossly no focal neurological deficits Skin: normal color, warm Results & Data Results & Data ([facility]) Vital Signs (Past 12 Hours) Vital Signs Temp Pulse Pulse Resp BP Pulse Ox O2 Del Method 04/04/22 15:19 36.5 C 71 19 160/62 H 97 Nasal Cannula 04/04/22 11:58 36.7 C 63 20 148/69 H 98 Nasal Cannula 04/04/22 08:00 Nasal Cannula 04/04/22 07:24 63 04/04/22 07:17 36.9 C 67 19 159/62 H 92 Nasal Cannula O2 Flow Rate 04/04/22 15:19 3.0 04/04/22 11:58 3.0 04/04/22 08:00 3 04/04/22 07:24 04/04/22 07:17 3.0 Laboratory Results Short CBC 04/04/22 Range/Units 05:57 WBC 4.65 L (4.8-10.8) K/ul Hgb 7.6 L (12.0-16.0) g/dl Hct 24.7 L (34.1-44.9) % Plt Count 212 (130-400) K/uL BMP 04/04/22 05:57 Sodium 139 Potassium 4.8 Chloride 111 H Carbon Dioxide 28 BUN 27 H Creatinine 1.86 H Glucose 101 H Calcium 9.1
[2022-04-04] MEDS: PANTOprazole 40 MG TAB PO SCH (19:22)
[2022-04-04] MEDS: MIRTAZAPINE TAB 15 MG TAB PO SCH (19:22)
[2022-04-04] MEDS: TAMSULOSIN HCL 0.4 MG CAP PO SCH (19:22)
[2022-04-05] MEDS: AZTREONAM 500 MG in DEXTROSE 5% 100 ML IV SCH (03:36)
[2022-04-05 06:19] LABS: Hematocrit (blood only) 25.6 % (34.1-44.9); Hemoglobin 7.8 g/dl (12.0-16.0)
[2022-04-05] MEDS: ALPRAZolam 0.5 MG TABLET PO PRN ×2 (08:21→21:35)
[2022-04-05] MEDS: UMECLIDINIUM/VILANTEROL 62.5/25MCG 7 PUFFS/INHALER INH SCH (08:21)
[2022-04-05] MEDS: DOCUSATE SODIUM 100 MG CAP PO SCH ×2 (08:22→20:23)
[2022-04-05] MEDS: hydrALAZINE TAB 50 MG TAB PO SCH ×2 (08:22→20:23)
[2022-04-05] MEDS: cloNIDine HCL 0.1 MG TAB PO SCH ×2 (08:22→20:23)
[2022-04-05] MEDS: ASPIRIN 81 MG ECTAB PO SCH (08:22)
[2022-04-05] MEDS: carvediloL 25 MG TAB PO SCH ×2 (08:22→16:44)
[2022-04-05] MEDS: LORATADINE 10 MG TAB PO SCH (08:23)
[2022-04-05] MEDS: MAGNESIUM CHLORIDE W/CALCIUM 64MG DELAYED REL TAB PO SCH ×2 (08:23→20:23)
[2022-04-05] MEDS: oxyCODONE HCL IR 5 MG TAB (IMMEDIATE RELEASE) PO PRN ×2 (09:38→20:25)
--- NOTE | 2022-04-05 09:38 | Gastroenterology Progress Note ---
Date of Service April 05, 2022 Assessment & Plan (1) Epigastric abdominal pain: Plan: 76 year old female admitted w/ complicated UTI, ureteral stent complications, GI asked to evaluate for migratory abd pain, nausea and GERD. CT imaging showing 4.5 cm ovoid cystic lesion in the pancreatic bodybut no acute findings. Consider KUB Can increase Pantoprazole to twice daily Can add Carafate slurry four times daily for 10 days Would start bowel regimen - Colace 100 mg twice daily - Miralax 1 capful once daily She is not interesting in following up with [facility] for evaluation of her pancreatic cyst - She is requesting follow up with [facility] GI will sign off. She would like to be transferred to [facility] given her persistent, unchanged symptos. Thank you for allowing us to participate in the care of this patient. Please call with any acute changes, questions or concerns. Please see addendum below with additional recommendation from my supervising physician. Admission and Anticipated Discharge Date Admission Date: April 02, 2022 Supervising Physician Co-Signing Physician Notes Late entry: Patient was seen and examined on 04/05 with BISHNU Browne whose note reflects our findings and plan. Subjective GI was asked to re-evaluate Aruna. She voices frustration in her care up to date. Prior to evaluation was requesting transfer to [facility]. She notes intermittent abd pain. This is epigastric, radiated to her shoulder and her back. Occurs intermittently, no known triggers. She has nausea but is not associated with pain. She denies vomiting, but feels as if she could vomit. She has GERD despite current therapy. Reports constipation, had small BM for first time in 5 days. Denies black or bloody stools. She suggests history of known pancreatic cyst. This dates back years. She was to have a repeat EUS years ago but suggests this was cancelled due to HTN. She is not agreeable to arranging follow up for pancreatic cyst at this time. CTAP 2022: Bilateral ureteral stents are in place. There is no hydronephrosis, and no ureteral stones are seen along the course of the stents.. Urothelial thickening is seen within the renal pelvis bilaterally and along both ureters. This may be related to the presence of indwelling stents. Correlate with clinical findings and urinalysis for evidence of superimposed urinary tract infection.There is a punctate stone/fragment identified in the right kidney. Again seen is an age indeterminant and likely chronic impacted subcapital fracture of the right femur.. Again seen is a pathologically indeterminant 4.5 cm ovoid cystic lesion in the distal pancreatic body. This contains internal calcification/debris. A mucinous cystic neoplasm is not excluded. If not already performed, nonemergent follow-up is recommended.. Colonic diverticulosis without CT evidence of acute diverticulitis. Review of Systems Review of Systems: All systems reviewed & are unremarkable except as noted in HPI & below Physical Exam Constitutional: WD/WN, vitals as above Respiratory: normal respiratory effort; no respiratory distress Cardiovascular: Rate/Rhythm: regular rate and regular rhythm Gastrointestinal (Abdomen): Percussion/Palpation: abdomen soft; abdomen nontender, no guarding, abdomen not rigid, no abdominal mass and no ascites Skin: no rashes, warm and dry Results & Data ([facility]) Vital Signs (Past 12 Hours) Vital Signs Temp Pulse Pulse Resp BP Pulse Ox O2 Del Method 04/05/22 07:53 36.5 C 66 18 131/61 97 Room Air 04/05/22 06:29 36.7 C 64 16 159/68 H 97 Nasal Cannula 04/05/22 02:34 36.6 C 61 18 139/50 L 98 Nasal Cannula 04/04/22 22:44 36.7 C 61 18 114/43 L 93 Nasal Cannula 04/04/22 21:58 Nasal Cannula O2 Flow Rate 04/05/22 07:53 04/05/22 06:29 3 04/05/22 02:34 3 04/04/22 22:44 3 04/04/22 21:58 3 Laboratory Results 04/05/22 04/05/22 04/04/22 Range/Units 06:04 06:04 18:09 Hgb 7.8 L (12.0-16.0) g/dl Hct 25.6 L (34.1-44.9) % Magnesium 1.7 (1.7-2.4) mg/dl Iron (35-150) mcg/dl TIBC (250-450) mcg/dl Unsaturated IBC (155-355) mcg/dl Transferrin % Sat (15-50) % Ferritin (8-388) ng/ml Vitamin B12 (180-914) pg/ml Folate (>5.38) ng/ml Stool Occult Bld Scrn Positive A (Negative) 04/04/22 04/04/22 04/04/22 Range/Units 09:08 09:08 09:08 Hgb (12.0-16.0) g/dl Hct (34.1-44.9) % Magnesium (1.7-2.4) mg/dl Iron (35-150) mcg/dl TIBC (250-450) mcg/dl Unsaturated IBC (155-355) mcg/dl Transferrin % Sat (15-50) % Ferritin 380.9 (8-388) ng/ml Vitamin B12 204 (180-914) pg/ml Folate > 22.30 (>5.38) ng/ml Stool Occult Bld Scrn (Negative) 04/04/22 Range/Units 05:57 Hgb (12.0-16.0) g/dl Hct (34.1-44.9) % Magnesium (1.7-2.4) mg/dl Iron 65 (35-150) mcg/dl TIBC 177 L (250-450) mcg/dl Unsaturated IBC 112 L (155-355) mcg/dl Transferrin % Sat 37 (15-50) % Ferritin (8-388) ng/ml Vitamin B12 (180-914) pg/ml Folate (>5.38) ng/ml Stool Occult Bld Scrn (Negative)
--- NOTE | 2022-04-05 16:35 | Hospitalist Progress Note ---
Date of Service April 05, 2022 Assessment & Plan (1) Complicated UTI (urinary tract infection): Plan: Abdominal pain DD: Secondary to Ureteral stent pain, complicated UTI, pancreatic cyst --CT ABD:Bilateral ureteral stents are in place. There is no hydronephrosis, and no ureteral stones are seen along the course of the stents. Urothelial thickening is seen within the renal pelvis bilaterally and along both ureters. This may be related to the presence of indwelling stents. Correlate with clinical findings and urinalysis for evidence of superimposed urinary tract infection. There is a punctate stone/fragment identified in the right kidney. Again seen is an age indeterminant and likely chronic impacted subcapital fracture of the right femur. Again seen is a pathologically indeterminant 4.5 cm ovoid cystic lesion in the distal pancreatic body. This contains internal calcification/debris. A mucinous cystic neoplasm is not excluded. If not already performed, nonemergent follow-up is recommended. Colonic diverticulosis without CT evidence of acute diverticulitis. -Lipase 154 Urine culture probable skin darren Pain control Appreciate GI Input Completed 3 day course of Azactam Appreciate urology input: No plan for intervention currently, needs outpatient follow-up for stent removal Appreciate GI input: Recommends endoscopic ultrasound but not interesting in following up with [facility] for evaluation of her pancreatic cyst as per GI Patient/family prefers endoscopic ultrasound to be done while hospitalized as patient having poor oral intake secondary to the pain, dehydration and recurrent hospitalizations Bowel regimen to help with constipation Patient and Family prefers patient to be transferred to [facility]. Patient was evaluated by Dr. Da Becerra at [facility]. Called transfer center--waiting for call back to see if they would accept for further care KUB pending Increased PPI to BID, Added Carafate Right hip chronic degenerative disease Possible old subcapital fracture S/P left total hip surgery Complains of bilateral hip pain Hip/Pelvic X ray:No evidence of acute osseous injury. Hip CT: Extensive degenerative changes and changes of remote impacted subcapital fracture. However there is no evidence of acute fracture. 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 Cr 2.1>1.9>1.8 Hold losartan Received IV fluids Monitor renal function Avoid nephrotoxic agents as able Chronic Anemia + FOBT Iron panel, Folate and B12 levels normal No obvious bleeding issues Monitor H&H Hyperkalemia Secondary to NANCY Monitor potassium levels Resolved Hypomagnesemia Replace electrolytes as needed Monitor COPD Chronic respiratory failure with hypoxia On 3 L supplemental oxygen at baseline Past tobacco abuse Continue home inhalers Hypertension Continue home medications Losartan currently held due to NANCY Prediabetes HbA1C 5.5 Nov 2021 Anxiety/mood disorder Continue home medication DVT Px: SCD Re: +FOBT, Anemia Code Status DNR/DNI Disposition PT OT prior to discharge Admission and Anticipated Discharge Date Admission Date: April 02, 2022 Subjective Patient is seen and examined at bedside States having abdominal pain Poor oral intake due to above Patient and family prefers to be transferred to different hospital Discussed with GI today Chronic back, hip pain Denies any chest pain, dyspnea, dizziness Review of Systems Review of Systems: All systems reviewed & are unremarkable except as noted in Subjective Physical Exam Physical Exam: Physical Exam: Vitals signs as noted above General Appearance:Moderately built and nourished, no apparent distress Head: normocephalic, Atraumatic Eyes: normal inspection, EOMI Neck: supple, Trachea midline Respiratory/Chest: Decreased breath sounds, scattered wheeze, No accessory muscle use Cardiovascular: S1, S2, No murmur Abdomen/GI:Soft, tender LLQ predominantly, Bowel sounds present Extremities/Musculoskeletal:normal inspection, no edema Neurologic/Psych:AAOX3, grossly no focal neurological deficits Skin: normal color, warm Results & Data Results & Data ([facility]) Vital Signs (Past 12 Hours) Vital Signs Temp Pulse Pulse Pulse Pulse Resp BP 04/05/22 16:02 36.5 C 61 18 164/64 H 04/05/22 11:54 36.6 C 62 16 125/65 04/05/22 10:23 04/05/22 07:00 60 04/05/22 07:53 36.5 C 66 18 131/61 04/05/22 06:29 36.7 C 64 16 159/68 H Pulse Ox O2 Del Method O2 Flow Rate 04/05/22 16:02 97 Nasal Cannula 3 04/05/22 11:54 96 Nasal Cannula 3 04/05/22 10:23 Nasal Cannula 3 04/05/22 07:00 04/05/22 07:53 97 Room Air 04/05/22 06:29 97 Nasal Cannula 3 Laboratory Results Short CBC 04/05/22 Range/Units 06:04 Hgb 7.8 L (12.0-16.0) g/dl Hct 25.6 L (34.1-44.9) %
[2022-04-05] MEDS: SUCRALFATE 1 GM TAB PO SCH ×2 (16:48→20:24)
--- NOTE | 2022-04-05 17:06 | XRay Report ---
XR KUB/Abdomen 1 view CLINICAL HISTORY: ABD PAIN TECHNIQUE: 1 view of the abdomen was obtained. Comparison: Comparison is made to CT abdomen pelvis 04/01/2022 FINDINGS: Bilateral nephroureteral stents are seen. Degenerative changes are seen in the visualized skeleton. L eft hip total arthroplasty noted. The bowel gas pattern is nonobstructive. Small stool burden is seen . IMPRESSION: Nonobstructive bowel gas pattern. ACT 112: Negative or not required by law. Electronically signed by: Sherman Coats M.D. 04/05/2022 5:04 PM
--- NOTE | 2022-04-05 17:43 | Communication Note ---
Date of Service: April 05, [address]Aaron Davis ([employer]) and Dr.Marnina Null (Hospitalist) at [facility] who accepted the patient for further management. Patient needs Insurance Auth prior to transfer as per [facility] transfer center.
[2022-04-05] MEDS: MIRTAZAPINE TAB 15 MG TAB PO SCH (20:24)
[2022-04-05] MEDS: PANTOprazole 40 MG TAB PO SCH (20:24)
[2022-04-05] MEDS: TAMSULOSIN HCL 0.4 MG CAP PO SCH (20:24)
[2022-04-06 06:35] LABS: Hematocrit (blood only) 24.6 % (34.1-44.9); Hemoglobin 7.6 g/dl (12.0-16.0)
[2022-04-06 07:35] LABS: Calcium 9.1 mg/dl (8.5-10.1); Potassium 4.6 mmol/L (3.5-5.1)
[2022-04-06 07:41] LABS: BUN Creatinine Ratio 14.7 (10-20); Creatinine Clr Calc Pharmacy 25.7 ml/min; Est GFR (African American) 33.1 ml/min; Est GFR (Non-African American) 28.6 ml/min
[2022-04-06] MEDS: SUCRALFATE 1 GM TAB PO SCH ×4 (09:04→19:37)
[2022-04-06] MEDS: ASPIRIN 81 MG ECTAB PO SCH (09:04)
[2022-04-06] MEDS: carvediloL 25 MG TAB PO SCH ×2 (09:04→17:14)
[2022-04-06] MEDS: DOCUSATE SODIUM 100 MG CAP PO SCH ×2 (09:05→19:35)
[2022-04-06] MEDS: hydrALAZINE TAB 50 MG TAB PO SCH ×2 (09:05→19:35)
[2022-04-06] MEDS: LORATADINE 10 MG TAB PO SCH (09:05)
[2022-04-06] MEDS: cloNIDine HCL 0.1 MG TAB PO SCH ×2 (09:05→19:35)
[2022-04-06] MEDS: MAGNESIUM CHLORIDE W/CALCIUM 64MG DELAYED REL TAB PO SCH ×2 (09:06→19:36)
[2022-04-06] MEDS: UMECLIDINIUM/VILANTEROL 62.5/25MCG 7 PUFFS/INHALER INH SCH (09:06)
[2022-04-06] MEDS: PANTOprazole 40 MG TAB PO SCH ×2 (09:06→19:37)
[2022-04-06] MEDS: ALBUT/IPRATROP 3MG/0.5MG NEB 3 ML VIAL NEB PRN (10:59)
[2022-04-06] MEDS: ALPRAZolam 0.5 MG TABLET PO PRN (11:29)
[2022-04-06] MEDS ORDERED: SODIUM CHLORIDE 0.65% NA SOLN 45 ML (OCEAN) PRN (11:49)
[2022-04-06] MEDS: oxyCODONE HCL IR 5 MG TAB (IMMEDIATE RELEASE) PO PRN ×2 (14:33→21:35)
--- NOTE | 2022-04-06 14:46 | Hospitalist Progress Note ---
Date of Service April 06, 2022 Assessment & Plan (1) Complicated UTI (urinary tract infection): Plan: Abdominal pain DD: Secondary to Ureteral stent pain, complicated UTI, pancreatic cyst --CT ABD:Bilateral ureteral stents are in place. There is no hydronephrosis, and no ureteral stones are seen along the course of the stents. Urothelial thickening is seen within the renal pelvis bilaterally and along both ureters. This may be related to the presence of indwelling stents. Correlate with clinical findings and urinalysis for evidence of superimposed urinary tract infection. There is a punctate stone/fragment identified in the right kidney. Again seen is an age indeterminant and likely chronic impacted subcapital fracture of the right femur. Again seen is a pathologically indeterminant 4.5 cm ovoid cystic lesion in the distal pancreatic body. This contains internal calcification/debris. A mucinous cystic neoplasm is not excluded. If not already performed, nonemergent follow-up is recommended. Colonic diverticulosis without CT evidence of acute diverticulitis. -Lipase 154 Urine culture probable skin darren Pain control Appreciate GI Input Completed 3 day course of Azactam Appreciate urology input: No plan for intervention currently, needs outpatient follow-up for stent removal Appreciate GI input: Recommends endoscopic ultrasound but not interesting in following up with [facility] for evaluation of her pancreatic cyst as per GI Patient/family prefers endoscopic ultrasound to be done while hospitalized as patient having poor oral intake secondary to the pain, dehydration and recurrent hospitalizations Bowel regimen to help with constipation Increased PPI to BID, Added Carafate Patient and Family prefers patient to be transferred to [facility]. Patient was evaluated by Dr. Da Becerra at [facility]. Discussed with Dr.Aaron Davis ([place] Room Operator) and Dr.Marnina Null (Hospitalist) at [facility] who accepted the patient for further management. Waiting for transfer to [facility] Right hip chronic degenerative disease Possible old subcapital fracture S/P left total hip surgery Complains of bilateral hip pain Hip/Pelvic X ray:No evidence of acute osseous injury. Hip CT: Extensive degenerative changes and changes of remote impacted subcapital fracture. However there is no evidence of acute fracture. 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 Cr 2.1>1.9>1.8>1.7 Hold losartan Received IV fluids Monitor renal function Avoid nephrotoxic agents as able Chronic Anemia + FOBT Iron panel, Folate and B12 levels normal No obvious bleeding issues Monitor H&H Hb 7.6 today Hyperkalemia Secondary to NANCY Monitor potassium levels Resolved Hypomagnesemia Replace electrolytes as needed Monitor COPD Chronic respiratory failure with hypoxia On 3 L supplemental oxygen at baseline Past tobacco abuse Continue home inhalers Hypertension Continue home medications Losartan currently held due to NANCY Prediabetes HbA1C 5.5 Nov 2021 Anxiety/mood disorder Continue home medication DVT Px: SCD Re: +FOBT, Anemia Code Status DNR/DNI Disposition [facility] when bed available Admission and Anticipated Discharge Date Admission Date: April 02, 2022 Subjective Patient is seen and examined at bedside No new complaints Poor oral intake secondary to abdominal pain Chronic back, hip pain Denies any chest pain, dyspnea, dizziness Waiting to be transferred to tertiary care facility Review of Systems Review of Systems: All systems reviewed & are unremarkable except as noted in Subjective Physical Exam Physical Exam: Physical Exam: Vitals signs as noted above General Appearance:Moderately built and nourished, no apparent distress Head: normocephalic, Atraumatic Eyes: normal inspection, EOMI Neck: supple, Trachea midline Respiratory/Chest: Decreased breath sounds, scattered wheeze, No accessory muscle use Cardiovascular: S1, S2, No murmur Abdomen/GI:Soft, tender LLQ predominantly, Bowel sounds present Extremities/Musculoskeletal:normal inspection, no edema Neurologic/Psych:AAOX3, grossly no focal neurological deficits Skin: normal color, warm Results & Data Results & Data ([facility]) Vital Signs (Past 12 Hours) Vital Signs Temp Pulse Pulse Pulse Resp BP Pulse Ox 04/06/22 11:34 36.8 C 68 18 149/70 H 97 04/06/22 10:59 67 16 96 04/06/22 07:00 65 04/06/22 10:15 04/06/22 08:00 36.8 C 67 20 165/67 H 97 04/06/22 06:00 04/06/22 03:45 36.5 C 59 L 18 138/70 95 O2 Del Method O2 Del Method O2 Flow Rate 04/06/22 11:34 Room Air 3 04/06/22 10:59 Nasal Cannula 3 04/06/22 07:00 04/06/22 10:15 Nasal Cannula 3 04/06/22 08:00 Nasal Cannula 2 04/06/22 06:00 Room Air 04/06/22 03:45 Nasal Cannula 3 Laboratory Results Short CBC 04/06/22 Range/Units 06:02 Hgb 7.6 L (12.0-16.0) g/dl Hct 24.6 L (34.1-44.9) % BMP 04/06/22 06:02 Sodium 141 Potassium 4.6 Chloride 113 H Carbon Dioxide 25 BUN 25 H Creatinine 1.70 H Glucose 106 H Calcium 9.1
[2022-04-06] MEDS ORDERED: SODIUM CHLORIDE 0.9% 250 ML IV PRN (14:49)
[2022-04-06] MEDS: MIRTAZAPINE TAB 15 MG TAB PO SCH (19:36)
[2022-04-06] MEDS: TAMSULOSIN HCL 0.4 MG CAP PO SCH (19:37)
[2022-04-07 07:28] LABS: Hematocrit (blood only) 24.7 % (34.1-44.9); Hemoglobin 7.6 g/dl (12.0-16.0)
--- NOTE | 2022-04-07 07:37 | Hospitalist Progress Note ---
Date of Service April 07, 2022 Assessment & Plan (1) Complicated UTI (urinary tract infection): Plan: Abdominal pain DD: Secondary to Ureteral stent pain, complicated UTI, pancreatic cyst --CT ABD:Bilateral ureteral stents are in place. There is no hydronephrosis, and no ureteral stones are seen along the course of the stents. Urothelial thickening is seen within the renal pelvis bilaterally and along both ureters. This may be related to the presence of indwelling stents. Correlate with clinical findings and urinalysis for evidence of superimposed urinary tract infection. There is a punctate stone/fragment identified in the right kidney. Again seen is an age indeterminant and likely chronic impacted subcapital fracture of the right femur. Again seen is a pathologically indeterminant 4.5 cm ovoid cystic lesion in the distal pancreatic body. This contains internal calcification/debris. A mucinous cystic neoplasm is not excluded. If not already performed, nonemergent follow-up is recommended. Colonic diverticulosis without CT evidence of acute diverticulitis. -Lipase 154 Urine culture probable skin darren Pain control Appreciate GI Input Completed 3 day course of Azactam Appreciate urology input: No plan for intervention currently, needs outpatient follow-up for stent removal Appreciate GI input: Recommends endoscopic ultrasound but not interesting in following up with [facility] for evaluation of her pancreatic cyst as per GI Patient/family prefers endoscopic ultrasound to be done while hospitalized as patient having poor oral intake secondary to the pain, dehydration and recurrent hospitalizations Bowel regimen to help with constipation Increased PPI to BID, Added Carafate Patient and Family prefers patient to be transferred to [facility]. Patient was evaluated by Dr. Da Becerra at [facility]. Discussed with Dr.Aaron Davis (Kitchen Lead) and Dr.Marnina Null (Hospitalist) at [facility] who accepted the patient for further management. Plan to be transferred to [facility] today Right hip chronic degenerative disease Possible old subcapital fracture S/P left total hip surgery Complains of bilateral hip pain Hip/Pelvic X ray:No evidence of acute osseous injury. Hip CT: Extensive degenerative changes and changes of remote impacted subcapital fracture. However there is no evidence of acute fracture. 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 Cr 2.1>1.9>1.8>1.7>1.6 Resume losartan as able Received IV fluids Monitor renal function Avoid nephrotoxic agents as able Chronic Anemia + FOBT Iron panel, Folate and B12 levels normal No obvious bleeding issues Monitor H&H Hb 7.6 today Hyperkalemia Secondary to NANCY Monitor potassium levels Resolved Hypomagnesemia Replace electrolytes as needed Monitor COPD Chronic respiratory failure with hypoxia On 3 L supplemental oxygen at baseline Past tobacco abuse Continue home inhalers Hypertension Continue home medications Losartan currently held due to NANCY Prediabetes HbA1C 5.5 Nov 2021 Anxiety/mood disorder Continue home medication DVT Px: SCD Re: +FOBT, Anemia Code Status DNR/DNI Disposition [facility] Admission and Anticipated Discharge Date Admission Date: April 02, 2022 Subjective Patient is seen and examined at bedside Refused to take medication this morning but later took them Persistent abdominal pain Oral intake remains poor Chronic back, hip pain Denies any chest pain, dyspnea, dizziness Plan to be transferred to [facility] today Review of Systems Review of Systems: All systems reviewed & are unremarkable except as noted in Subjective Physical Exam Physical Exam: Physical Exam: Vitals signs as noted above General Appearance:Moderately built and nourished, no apparent distress Head: normocephalic, Atraumatic Eyes: normal inspection, EOMI Neck: supple, Trachea midline Respiratory/Chest: Decreased breath sounds, CTA, No accessory muscle use Cardiovascular: S1, S2, No murmur Abdomen/GI:Soft, tender LLQ predominantly, Bowel sounds present Extremities/Musculoskeletal:normal inspection, no edema Neurologic/Psych:AAOX3, grossly no focal neurological deficits Skin: normal color, warm Results & Data Results & [facility] ([facility]) Vital Signs (Past 12 Hours) Vital Signs Temp Pulse Pulse Pulse Resp BP Pulse Ox 04/07/22 07:00 59 L 04/07/22 04:06 36.7 C 61 20 165/69 H 96 04/06/22 23:50 69 20 151/63 H 04/06/22 23:34 36.5 C 78 22 188/62 H 88 L 04/06/22 19:42 O2 Del Method O2 Flow Rate 04/07/22 07:00 04/07/22 04:06 Nasal Cannula 3 04/06/22 23:50 Nasal Cannula 94 04/06/22 23:34 Room Air 04/06/22 19:42 Nasal Cannula 3 Laboratory Results Short CBC 04/07/22 Range/Units 06:32 Hgb 7.6 L (12.0-16.0) g/dl Hct 24.7 L (34.1-44.9) % BMP 04/07/22 06:32 Sodium 142 Potassium 4.8 Chloride 112 H Carbon Dioxide 26 BUN 26 H Creatinine 1.60 H Glucose 102 H Calcium 9.9
[2022-04-07] MEDS: hydrALAZINE TAB 50 MG TAB PO SCH ×2 (08:20→10:10)
[2022-04-07] MEDS: ASPIRIN 81 MG ECTAB PO SCH ×2 (08:20→10:10)
[2022-04-07] MEDS: cloNIDine HCL 0.1 MG TAB PO SCH ×2 (08:20→10:10)
[2022-04-07] MEDS: carvediloL 25 MG TAB PO SCH ×3 (08:20→16:30)
[2022-04-07] MEDS: SUCRALFATE 1 GM TAB PO SCH ×4 (08:20→16:29)
[2022-04-07] MEDS: DOCUSATE SODIUM 100 MG CAP PO SCH ×2 (08:20→10:10)
[2022-04-07] MEDS: MAGNESIUM CHLORIDE W/CALCIUM 64MG DELAYED REL TAB PO SCH ×2 (08:20→10:11)
[2022-04-07] MEDS: LORATADINE 10 MG TAB PO SCH ×2 (08:20→10:10)
[2022-04-07] MEDS: PANTOprazole 40 MG TAB PO SCH ×2 (08:21→10:11)
[2022-04-07] MEDS: UMECLIDINIUM/VILANTEROL 62.5/25MCG 7 PUFFS/INHALER INH SCH (08:21)
[2022-04-07 08:38] LABS: BUN Creatinine Ratio 16.3 (10-20); Calcium 9.9 mg/dl (8.5-10.1); Creatinine Clr Calc Pharmacy 27.7 ml/min; Est GFR (African American) 35.7 ml/min; Est GFR (Non-African American) 30.8 ml/min; Magnesium 1.7 mg/dl (1.7-2.4); Potassium 4.8 mmol/L (3.5-5.1)
[2022-04-07] MEDS: ALPRAZolam 0.5 MG TABLET PO PRN (09:49)
[2022-04-07] MEDS ORDERED: POLYETHYLENE (MIRALAX) 17 GM PACK PO ONE (10:45)
--- NOTE | 2022-04-07 12:51 | Discharge Summary ---
Date of Service April 07, 2022 Admission HPI Per Admitting Provider History obtained from patient and records. Medical history significant for hypertension, COPD, pancreatic cyst, CRI (baseline creatinine 1.8 from February 2022), GERD, chronic anemia (baseline hemoglobin 9), prediabetes, urolithiasis, chronic back pain, anxiety/mood disorder, past history C. difficile, past tobacco abuse. Last confinement December 2021 for left hydronephrosis secondary to renal calculi. Patient underwent cystoscopy and bilateral stent placement. Patient discharged to rehab facility prior to going home. Last week, patient underwent outpatient cystoscopy, left ureteral nephroscopy with stone extraction/destruction and bilateral stent placement by [facility] urologist. Patient sent home on Bactrim course. Poor appetite the last few months. Admits to depression but denies suicidality. 2 days ago, patient noted achy left-sided flank pain going to her belly with nausea symptoms. No fever, no chills, no hematuria. Usual shortness of breath without chest pain. Patient daughter urged patient to be evaluated at the ER. 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 [place], currently residing with her daughter in [place], [place] Admission Exam Per Admitting Provider Physical Exam: Vitals signs as noted above General Appearance:Moderately built and nourished, no apparent distress Head: normocephalic, Atraumatic Eyes: normal inspection, EOMI Neck: supple, Trachea midline Respiratory/Chest: Decreased breath sounds, scattered wheeze, No accessory muscle use Cardiovascular: S1, S2, No murmur Abdomen/GI:Soft, tender LLQ predominantly, Bowel sounds present Extremities/Musculoskeletal:normal inspection, no edema Neurologic/Psych:AAOX3, grossly no focal neurological deficits Skin: normal color, warm Principal Diagnosis Pancreatic cyst/Lesion R/O Malignancy Acute kidney injury Chronic right subcapital fracture Hyperkalemia--resolved Discharge Data Allergies Allergy/AdvReac Type Severity Reaction Status Date / Time metronidazole [From Flagyl] Allergy Severe SHORTNESS Verified 04/01/22 20:28 OF BREATH amlodipine AdvReac Intermediate left leg Verified 04/01/22 20:28 numbness cefuroxime AdvReac Intermediate Gastrointestinal Verified 04/01/22 20:28 Upset Cephalosporins AdvReac Intermediate Gastrointestinal Verified 04/01/22 20:28 Upset ciprofloxacin AdvReac Intermediate Gastrointestinal Verified 04/01/22 20:28 Upset erythromycin base AdvReac Intermediate Gastrointestinal Verified 04/01/22 20:28 Upset sulfamethoxazole AdvReac Intermediate hyperkalemi Verified 04/02/22 03:35 [From Bactrim] a trimethoprim [From Bactrim] AdvReac Intermediate hyperkalemi Verified 04/02/22 03:35 a Consultations 04/02/22 01:54 ED Decision to Admit Stat 04/02/22 09:51 Consult Urology Routine 04/02/22 12:22 Consult Orthopedic Surgery Routine 04/02/22 12:24 Consult Gastroenterology Routine Procedures Performed Laboratory Results WBC 4.65 K/ul (4.8-10.8) L 04/04/22 05:57 RBC 2.45 M/uL (3.93-5.22) L 04/04/22 05:57 Hgb 7.6 g/dl (12.0-16.0) L 04/07/22 06:32 Hct 24.7 % (34.1-44.9) L 04/07/22 06:32 MCV 100.8 fL (80.0-100.0) H 04/04/22 05:57 MCH 31.0 pg (25.0-34.0) 04/04/22 05:57 MCHC 30.8 g/dL (32.0-36.0) L 04/04/22 05:57 RDW Std Deviation 44.7 fL (36.4-46.3) 04/04/22 05:57 RDW Coeff of Chuy 12.0 % (11.5-14.5) 04/04/22 05:57 Plt Count 212 K/uL (130-400) 04/04/22 05:57 MPV 9.6 fL (9.4-12.3) 04/04/22 05:57 Immature Gran % (Auto) 0.4 % 04/02/22 07:05 Neut % (Auto) 48.3 % 04/02/22 07:05 Lymph % (Auto) 33.7 % 04/02/22 07:05 [place] % (Auto) 10.3 % 04/02/22 07:05 Eos % (Auto) 6.6 % 04/02/22 07:05 Baso % (Auto) 0.7 % 04/02/22 07:05 Neut # (Auto) 2.58 K/uL (1.4-6.5) 04/02/22 07:05 Lymph # (Auto) 1.80 K/uL (1.2-3.4) 04/02/22 07:05 [place] # (Auto) 0.55 K/uL (0.24-0.82) 04/02/22 07:05 Eos # (Auto) 0.35 K/uL (0-0.50) 04/02/22 07:05 Baso # (Auto) 0.04 K/uL (0-0.2) 04/02/22 07:05 Immature Gran # (Auto) 0.02 K/uL (0.00-0.02) 04/02/22 07:05 Absolute Nucleated RBC Cancelled 04/01/22 20:28 Nucleated RBC % (auto) Cancelled 04/01/22 20:28 Neutrophils % (Manual) Cancelled 04/01/22 20:28 Band Neutrophils % Cancelled 04/01/22 20:28 Lymphocytes % (Manual) Cancelled 04/01/22 20:28 Prolymphocyte % Cancelled 04/01/22 20:28 Reactive Lymphs % (Man) Cancelled 04/01/22 20:28 Monocytes % (Manual) Cancelled 04/01/22 20:28 Eosinophils % (Manual) Cancelled 04/01/22 20:28 Basophils % (Manual) Cancelled 04/01/22 20:28 Metamyelocytes % (Man) Cancelled 04/01/22 20:28 Myelocytes % (Man) Cancelled 04/01/22 20:28 Promyelocytes % (Man) Cancelled 04/01/22 20:28 Blast Cells % (Manual) Cancelled 04/01/22 20:28 Plasma Cell % (Manual) Cancelled 04/01/22 20:28 Other Cells % Cancelled 04/01/22 20:28 Nucleated RBC % Cancelled 04/01/22 20:28 Neutrophils # (Manual) Cancelled 04/01/22 20:28 Band Neutrophils # Cancelled 04/01/22 20:28 Total Absolute Neuts Cancelled 04/01/22 20:28 Lymphocytes # (Manual) Cancelled 04/01/22 20:28 Prolymphocyte # Cancelled 04/01/22 20:28 Reactive Lymphs # Cancelled 04/01/22 20:28 Total Abs Lymphocytes Cancelled 04/01/22 20:28 Monocytes # (Manual) Cancelled 04/01/22 20:28 Eosinophils # (Manual) Cancelled 04/01/22 20:28 Basophils # (Manual) Cancelled 04/01/22 20:28 Metamyelocytes # (Man) Cancelled 04/01/22 20:28 Myelocytes # (Manual) Cancelled 04/01/22 20:28 Promyelocytes # (Man) Cancelled 04/01/22 20:28 Blast Cells # (Man) Cancelled 04/01/22 20:28 Plasma Cell # (Manual) Cancelled 04/01/22 20:28 Other Cells # Cancelled 04/01/22 20:28 Nucleated RBCs # (Man) Cancelled 04/01/22 20:28 Hypersegmented Neuts Cancelled 04/01/22 20:28 Hyposegmented Neuts Cancelled 04/01/22 20:28 Hypogranular Neuts Cancelled 04/01/22 20:28 Large Granular Lymphs Cancelled 04/01/22 20:28 # Lrg Granular Lymphs Cancelled 04/01/22 20:28 Hairy Cells Cancelled 04/01/22 20:28 Smudge Cells Cancelled 04/01/22 20:28 Toxic Granulation Cancelled 04/01/22 20:28 Toxic Vacuolation Cancelled 04/01/22 20:28 Dohle Bodies Cancelled 04/01/22 20:28 Phillip Rods Cancelled 04/01/22 20:28 Platelet Estimate Cancelled 04/01/22 20:28 Hypogranular Platelets Cancelled 04/01/22 20:28 Clumped Platelets Cancelled 04/01/22 20:28 Giant Platelets Cancelled 04/01/22 20:28 Platelet Satelliting Cancelled 04/01/22 20:28 RBC Morphology Cancelled 04/01/22 20:28 Polychromasia Cancelled 04/01/22 20:28 Hypochromasia Cancelled 04/01/22 20:28 Poikilocytosis Cancelled 04/01/22 20:28 Basophilic Stippling Cancelled 04/01/22 20:28 Anisocytosis Cancelled 04/01/22 20:28 Microcytosis Cancelled 04/01/22 20:28 Macrocytosis Cancelled 04/01/22 20:28 Spherocytes Cancelled 04/01/22 20:28 Pappenheimer Bodies Cancelled 04/01/22 20:28 Sickle Cells Cancelled 04/01/22 20:28 Target Cells Cancelled 04/01/22 20:28 Tear Drop Cells Cancelled 04/01/22 20:28 Ovalocytes Cancelled 04/01/22 20:28 Stomatocytes Cancelled 04/01/22 20:28 [place] Bodies Cancelled 04/01/22 20:28 Echinocytes Cancelled 04/01/22 20:28 Acanthocytes (Spur) Cancelled 04/01/22 20:28 Rouleaux Cancelled 04/01/22 20:28 RBC Agglutinates Cancelled 04/01/22 20:28 Schistocytes Cancelled 04/01/22 20:28 Sezary Cell Cancelled 04/01/22 20:28 PT 11.1 Seconds (9.0-12.0) 04/01/22 21:13 INR 1.0 (0.9-1.1) 04/01/22 21:13 APTT 25.6 Seconds (21.0-31.0) 04/01/22 21:13 PTT Ratio 0.9 04/01/22 21:13 Sodium 142 mmol/L (136-145) 04/07/22 06:32 Potassium 4.8 mmol/L (3.5-5.1) 04/07/22 06:32 Chloride 112 mmol/L (98-107) H 04/07/22 06:32 Carbon Dioxide 26 mmol/L (21-32) 04/07/22 06:32 Anion Gap 4 (3-11) 04/07/22 06:32 BUN 26 mg/dl (6-23) H 04/07/22 06:32 Creatinine 1.60 mg/dl (0.6-1.2) H 04/07/22 06:32 Est Cr Clr Drug Dosing 27.7 ml/min 04/07/22 06:32 Est GFR ( Amer) 35.7 ml/min 04/07/22 06:32 Est GFR (Non-Af Amer) 30.8 ml/min 04/07/22 06:32 BUN/Creatinine Ratio 16.3 (10-20) 04/07/22 06:32 Glucose 102 mg/dl (70-99(Fasting)) H 04/07/22 06:32 Calcium 9.9 mg/dl (8.5-10.1) 04/07/22 06:32 Magnesium 1.7 mg/dl (1.7-2.4) 04/07/22 06:32 Iron 65 mcg/dl (35-150) 04/04/22 05:57 TIBC 177 mcg/dl (250-450) L 04/04/22 05:57 Unsaturated IBC 112 mcg/dl (155-355) L 04/04/22 05:57 Transferrin % Sat 37 % (15-50) 04/04/22 05:57 Ferritin 380.9 ng/ml (8-388) 04/04/22 09:08 Total Bilirubin 0.4 mg/dl (0.2-1.0) 04/01/22 20:28 Direct Bilirubin 0.1 mg/dl (0-0.2) 04/01/22 21:14 AST 11 U/L (13-39) L 04/01/22 21:14 ALT 12 U/L (7-52) 04/01/22 20:28 Alkaline Phosphatase 60 U/L (34-104) 04/01/22 20:28 Total Creatine Kinase < 10 U/L (26-192) L 04/02/22 03:49 Troponin I High Sens 7.7 pg/ml (0-14) 04/01/22 20:28 Total Protein 6.9 gm/dl (6.0-8.3) 04/01/22 20:28 Albumin 3.4 gm/dl (3.4-5.0) 04/01/22 20:28 Globulin 3.5 gm/dl (2.5-4.0) 04/01/22 20:28 Albumin/Globulin Ratio 1.0 (0.9-2) 04/01/22 20:28 Lipase 154 U/L (11-82) H 04/02/22 07:05 Vitamin B12 204 pg/ml (180-914) 04/04/22 09:08 Folate > 22.30 ng/ml (>5.38) 04/04/22 09:08 Urine Color Dark Yellow 04/01/22 00:24 Urine Appearance Turbid (Clear) A 04/01/22 00:24 Urine pH 5.0 (4.5-7.5) 04/01/22 00:24 Ur Specific [place] 1.018 (1.000-1.030) 04/01/22 00:24 Urine Protein 3+ (Negative) H 04/01/22 00:24 Urine Glucose (UA) Negative (Negative) 04/01/22 00:24 Urine Ketones Negative (Negative) 04/01/22 00:24 Urine Blood 3+ (Negative) H 04/01/22 00:24 Urine Nitrite Positive (Negative) A 04/01/22 00:24 Urine Bilirubin Negative (Negative) 04/01/22 00:24 Urine Urobilinogen Negative (Negative) 04/01/22 00:24 Ur Leukocyte Esterase 2+ (Negative) H 04/01/22 00:24 Urine WBC (Auto) 10-30 /hpf (0-5) H 04/01/22 00:24 Urine RBC (Auto) >30 /hpf (0-4) H 04/01/22 00:24 U Hyaline Cast (Auto) 0 /lpf (0-5) 04/01/22 00:24 U Epithel Cells (Auto) 20-30 /lpf (0-5) H 04/01/22 00:24 Urine Bacteria (Auto) 1+ (Negative) H 04/01/22 00:24 Ur Renal Epithelial Cell Not Reportable 04/01/22 00:24 Urine Yeast Not Reportable 04/01/22 00:24 Stool Occult Bld Scrn Positive (Negative) A 04/04/22 18:09 SARS-CoV-2, RNA, NAAT NEGATIVE (NEGATIVE) 04/01/22 Unknown Blood Parasites ID Cancelled 04/01/22 20:28 Blood Type A Negative 04/06/22 15:20 Antibody Screen NEGATIVE 04/06/22 15:20 Crossmatch See Detail 04/06/22 15:20 Impressions Chest X-Ray 04/01/22 20:31 XR chest 1V portable HISTORY: 76 years-old Female Chest pain, nonspecific acute chest pain COMPARISON: Chest radiograph and CTA chest 01/21/2022 TECHNIQUE: AP view of the chest FINDINGS: Cardiomediastinal and hilar silhouettes are within normal limits. Option cannula is coiled over the right lung apex. No pneumothorax, or large pleural effusion, airspace consolidation or overt pulmonary edema. Degenerative changes of the shoulders and spine. IMPRESSION: No acute process. ACT 112: Negative or not required by law. The above report was generated using voice recognition software. It may contain grammatical, syntax or spelling errors. Electronically signed by: Mani Ramos M.D. 04/01/2022 8:46 PM Abdomen/Pelvis CT 04/01/22 21:06 CT SCAN OF THE ABDOMEN AND PELVIS WITHOUT IV CONTRAST CLINICAL HISTORY: Upper abdominal pain. COMPARISON STUDY: Abdominal CT dated 01/13/2022. TECHNIQUE: CT scan of the abdomen and pelvis is performed from the lung bases to the proximal femora. Images are reviewed in the axial, sagittal, and coronal planes. IV contrast was not administered for this examination as per the referring clinician. Note that the examination was performed in significantly suboptimal fashion without oral and IV contrast. A dose lowering technique was utilized adhering to the principles of ALARA. FINDINGS: Lung bases: The heart is normal in size and without pericardial effusion. There is diminished attenuation of the cardiac blood pool as compared to the myocardium suggesting anemia. There is trace right pleural effusion. Scarri ng/atelectasis is noted at both lung bases. A small hiatal hernia is noted. Liver: The unenhanced liver is normal in size, contour, and attenuation. There is no intrahepatic biliary ductal dilatation. Gallbladder: Unremarkable. Spleen: Normal in size and attenuation. Pancreas: There is a 4.5 cm ovoid cystic lesion in the pancreatic body is seen on image #94. This contains internal calcification/debris. The pancreatic tail appears atrophic. The unenhanced proximal pancreas is moderately atrophic and otherwise grossly unremarkable. Adrenal glands: Unremarkable. Kidneys: The unenhanced kidneys are atrophic. Bilateral ureteral stents are in place and there is no hydronephrosis. No calculi are identified in either ureter along the course of the stents. There is a punctate stone/fragment in the interpolar right kidney. No left renal calculi are identified. Urothelial thickening is seen in the renal pelvis bilaterally and along both ureters with mild surrounding inflammation. There is no evidence of contour deforming renal mass lesion. Abdominal vasculature: The abdominal aorta is normal in course and caliber noting advanced atherosclerotic calcification. Bowel: There is moderate colonic diverticulosis without CT evidence of acute diverticulitis. No bowel obstruction is seen. Submucosal fat deposition is seen throughout the right colon. This is a nonspecific finding but has been described in the setting of chronic inflammation. The appendix is not identified and reported surgically absent. Peritoneum: There is no intraperitoneal free air or abdominal ascites. There is a fat-containing umbilical hernia. Lymphadenopathy: A mildly enlarged left iliac chain node seen on image #185 measures 12 mm in short axis. This is unchanged. No additional enlarged lymph no allen are seen in the abdomen or pelvis. Pelvic viscera: Evaluation of the pelvis is significantly degraded by streak artifact from a left hip arthroplasty. The bladder is normal as visualized. The uterus is surgically absent. No adnexal lesion is seen. Skeletal structures: The skeletal structures are osteopenic. No lytic or blastic lesions are seen. A left hip arthroplasty is in place. Advanced arthritic change is seen in the right hip. There is moderate lumbosacral spondylosis. There is an age indeterminant impacted fracture of the subcapital right femur. IMPRESSION: 1. Bilateral ureteral stents are in place. There is no hydronephrosis, and no ureteral stones are seen along the course of the stents. 2. Urothelial thickening is seen within the renal pelvis bilaterally and along both ureters. This may be related to the presence of indwelling stents. Correlate with clinical findings and urinalysis for evidence of superimposed urinary tract infection. 3. There is a punctate stone/fragment identified in the right kidney. 4. Again seen is an age indeterminant and likely chronic impacted subcapital fracture of the right femur. 5. Again seen is a pathologically indeterminant 4.5 cm ovoid cystic lesion in the distal pancreatic body. This contains internal calcification/debris. A mucinous cystic neoplasm is not excluded. If not already performed, nonemergent follow-up is recommended. 6. Colonic diverticulosis without CT evidence of acute diverticulitis. 7. Additional findings as above. ACT 112: Negative or not required by law. Electronically signed by: Horacio Motta M.D. 04/01/2022 9:54 PM Hip/Pelvis X-Ray 04/02/22 12:28 XR hip RT 2V w pelvis CLINICAL HISTORY: Femur fracture TECHNIQUE: 2 views of the right hip and single frontal view of the pelvis were obtained. Comparison: Comparison is made to hip radiograph 12/21/2021 FINDINGS: There is no evidence of an acute fracture. Degenerative changes are seen in the right hip joint and lower lumbar spine. Bilateral nephroureteral stents are seen. Left femoroacetabular hardware noted. No soft tissue abnormality is seen. IMPRESSION: No evidence of acute osseous injury. ACT 112: Negative or not required by law. Electronically signed by: Sherman Coats M.D. 04/02/2022 1:[address] 04/02/22 13:31 CT hip RT wo con CLINICAL HISTORY: pls format recons and bone windows from prior CT TECHNIQUE: Multidetector row helical CT of the right hip was performed without intravenous contrast. Coronal and sagittal reformations were obtained. Automated dose lowering techniques and/or adjustment according to patient size were utilized for this examination. Comparison: Comparison is made to CT abdomen pelvis 04/01/2022 FINDINGS: The osseous structures are without fracture or dislocation. Extensive degenerative changes are seen in the right femoroacetabular joint with prominent osteophyte formation. This distorts the normal contour of the right femoral neck. However no cortical disruption is seen and the trabeculation appears interrupted. There are, however, likely chronic changes of impacted subcapital f racture. The soft tissues are unremarkable. IMPRESSION: Extensive degenerative changes and changes of remote impacted subcapital fracture. However there is no evidence of acute fracture. ACT 112: Negative or not required by law. Electronically signed by: Sherman Coats M.D. 04/02/2022 7:03 PM KUB X-Ray 04/05/22 15:24 XR KUB/Abdomen 1 view CLINICAL HISTORY: ABD PAIN TECHNIQUE: 1 view of the abdomen was obtained. Comparison: Comparison is made to CT abdomen pelvis 04/01/2022 FINDINGS: Bilateral nephroureteral stents are seen. Degenerative changes are seen in the visualized skeleton. Left hip total arthroplasty noted. The bowel gas pattern is nonobstructive. Small stool burden is seen. IMPRESSION: Nonobstructive bowel gas pattern. ACT 112: Negative or not required by law. Electronically signed by: Sherman Coats M.D. 04/05/2022 5:04 PM Ordered Studies 04/01/22 21:06 CT abd pelvis wo con Stat 04/02/22 13:31 CT hip RT wo con Routine Hospital Course (1) Complicated UTI (urinary tract infection): Abdominal pain DD: Secondary to Ureteral stent pain, complicated UTI, pancreatic cyst --CT ABD:Bilateral ureteral stents are in place. There is no hydronephrosis, and no ureteral stones are seen along the course of the stents. Urothelial thickening is seen within the renal pelvis bilaterally and along both ureters. This may be related to the presence of indwelling stents. Correlate with clinica l findings and urinalysis for evidence of superimposed urinary tract infection. There is a punctate stone/fragment identified in the right kidney. Again seen is an age indeterminant and likely chronic impacted subcapital fracture of the right femur. Again seen is a pathologically indeterminant 4.5 cm ovoid cystic lesion in the distal pancreatic body. This contains internal calcification/debris. A mucinous cystic neoplasm is not excluded. If not already performed, nonemergent follow-up is recommended. Colonic diverticulosis without CT evidence of acute diverticulitis. -Lipase 154 Urine culture probable skin darren Pain control Appreciate GI Input Completed 3 day course of Azactam Appreciate urology input: No plan for intervention currently, needs outpatient follow-up for stent removal Appreciate GI input: Recommends endoscopic ultrasound but not interesting in following up with [facility] for evaluation of her pancreatic cyst as per GI Patient/family prefers endoscopic ultrasound to be done while hospitalized as patient having poor oral intake secondary to the pain, dehydration and recurrent hospitalizations Bowel regimen to help with constipation Increased PPI to BID, Added Carafate Patient and Family prefers patient to be transferred to [facility]. Patient was evaluated by Dr. Da Becerra at [facility]. Discussed with Dr.Aaron Davis (Resident In Diagnostic Radiology) and Dr.Marnina Null (Hospitalist) at [facility] who accepted the patient for further management. Plan to be transferred to [facility] today Right hip chronic degenerative disease Possible old subcapital fracture S/P left total hip surgery Complains of bilateral hip pain Hip/Pelvic X ray:No evidence of acute osseous injury. Hip CT: Extensive degenerative changes and changes of remote impacted subcapital fracture. However there is no evidence of acute fracture. 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 Cr 2.1>1.9>1.8>1.7>1.6 Resume losartan as able Received IV fluids Monitor renal function Avoid nephrotoxic agents as able Chronic Anemia + FOBT Iron panel, Folate and B12 levels normal No obvious bleeding issues Monitor H&H Hb 7.6 today Hyperkalemia Secondary to NANCY Monitor potassium levels Resolved Hypomagnesemia Replace electrolytes as needed Monitor COPD Chronic respiratory failure with hypoxia On 3 L supplemental oxygen at baseline Past tobacco abuse Continue home inhalers Hypertension Continue home medications Losartan currently held due to NANCY Prediabetes HbA1C 5.5 Nov 2021 Anxiety/mood disorder Continue home medication DVT Px: SCD Re: +FOBT, Anemia Code Status DNR/DNI Disposition [facility] Total Time Total Time Spent Total Time Spent (In Minutes): 45 minutes Discharge Plan Discharge Items Patient Disposition: Transfer Acute Care Hospital Reason For Visit: COMP UTI, HYPERKALEMIA Discharge Diagnosis: Pancreatic cyst/Lesion R/O Malignancy Acute kidney injury Chronic right subcapital fracture Hyperkalemia--resolved Activity: Per Instructions section Exercise/Sports: Wait until after follow-up appointment Non-emergency contact: Primary Care Provider and Resident In Diagnostic Radiology Call non-emergency contact if: you have any medication questions, your symptoms worsen, your pain is concerning for you and you have a fever Follow-up/Referrals: Abe Gleason MD [Primary Care Provider] - Diet: Heart Healthy [place] Attending Provider Instructions: Follow up with Discussed with Dr.Aaron Davis (Resident In Diagnostic Radiology) and Dr.Marnina Null (Hospitalist) at [facility] for further management [employer]tl [employer] Provider Instructions: Current Inpatient Medications Acetaminophen (Acetaminophen 325 Mg Tab) 650 mg PO Q6H PRN PRN Reason: Fever/pain Stop: 05/02/22 03:31 Albuterol (Albut/Ipratrop 3mg/0.5mg Neb 3 Ml Vial) 3 ml NEB Q4R PRN; Protocol PRN Reason: Shortness Of Breath Or Wheezing Stop: 05/02/22 18:59 Last Admin: 04/03/22 11:52 Dose: 3 ml Alprazolam (Alprazolam 0.5 Mg Tablet) 0.5 mg PO BID PRN PRN Reason: Anxiety Stop: 05/02/22 06:55 Last Admin: 04/05/22 08:21 Dose: 0.5 mg Aspirin (Aspirin 81 Mg Ectab) 81 mg PO DAILY SABAS Stop: 05/02/22 08:59 Last Admin: 04/05/22 08:22 Dose: 81 mg Carvedilol (Carvedilol 25 Mg Tab) 25 mg PO BIDM [facility] Stop: 05/02/22 07:59 Last Admin: 04/05/22 16:44 Dose: 25 mg Clonidine HCl (Clonidine Hcl 0.1 Mg Tab) 0.1 mg PO BID [facility] Stop: 05/02/22 20:59 Last Admin: 04/05/22 08:22 Dose: 0.1 mg Docusate Sodium (Docusate Sodium 100 Mg Cap) 100 mg PO BID [facility] Stop: 05/04/22 10:44 Last Admin: 04/05/22 08:22 Dose: 100 mg Heparin Sodium (Porcine) (Heparin Sod 5,000 Unit/0.5 Ml Vial) 5,000 units SQ Q8 [facility] Stop: 05/02/22 06:55 Last Admin: 04/04/22 12:51 Dose: 5,000 units Hydralazine HCl (Hydralazine Tab 50 Mg Tab) 100 mg PO BID [facility] Stop: 05/02/22 07:14 Last Admin: 04/05/22 08:22 Dose: 100 mg Hydromorphone HCl (Hydromorphone Inj 0.5 Mg/0.5 Ml Syr) 0.5 mg IV Q6H PRN PRN Reason: Pain Stop: 04/16/22 03:31 Loratadine (Loratadine 10 Mg Tab) 10 mg PO QAM [facility] Stop: 05/02/22 08:59 Last Admin: 04/05/22 08:23 Dose: 10 mg Magnesium Chloride (Magnesium Chloride W/Calcium 64mg Delayed Rel Tab) 64 mg PO BID [facility] Stop: 05/03/22 08:59 Last Admin: 04/05/22 08:23 Dose: 64 mg Mirtazapine (Mirtazapine Tab 15 Mg Tab) 30 mg PO HS [facility] Stop: 05/02/22 20:59 Last Admin: 04/04/22 19:22 Dose: 30 mg Oxycodone HCl (Oxycodone Hcl Ir 5 Mg Tab (Immediate Release)) 5 - 10 mg PO QID PRN PRN Reason: Pain Stop: 04/16/22 03:31 Last Admin: 04/05/22 09:38 Dose: 10 mg Pantoprazole Sodium (Pantoprazole 40 Mg Tab) 40 mg PO BID [facility] Stop: 05/05/22 20:59 Polyethylene Glycol (Polyethylene (Miralax) 17 Gm Pack) 17 gm PO DAILY PRN PRN Reason: Constipation Stop: 05/04/22 10:30 Sucralfate (Sucralfate 1 Gm Tab) 1 gm PO ACHS [facility] Stop: 05/05/22 16:29 Last Admin: 04/05/22 16:48 Dose: 1 gm Tamsulosin HCl (Tamsulosin Hcl 0.4 Mg Cap) 0.4 mg PO HS SABAS Stop: 05/02/22 20:59 Last Admin: 04/04/22 19:22 Dose: 0.4 mg Umeclidinium/Vilanterol (Umeclidinium/Vilanterol 62.5/25mcg 7 Puffs/Inhaler) 1 puffs INH QAM SABAS Stop: 05/02/22 08:59 Last Admin: 04/05/22 08:21 Dose: 1 puffs Pending Studies at Discharge: No Stand-Alone Forms: [facility] Skilled Items Patient informed of condition?: Yes DNR: Yes Discharge Level of Care: Other Communicable Disease: No Discharge Prognosis: Stable Lines: Peripheral IV Urinary Catheter: No Medications and DC Order Prescriptions: Continued albuterol sulfate 2.5 mg /3 mL (0.083 %) Solution For Nebulization 2.5 mg INHALATION Q4H PRN (Reason: Shortness Of Breath) hydralazine 100 mg Tablet 100 mg PO BID acetaminophen-codeine 300-30 mg Tablet 1 tab PO Q6H PRN (Reason: Moderate Pain (Scale Score 5-6)) alprazolam [Xanax] 0.5 mg Tablet 0.5 mg PO BID PRN (Reason: Anxiety) pantoprazole [Protonix] 40 mg Tablet,Delayed Release (Dr/Ec) 40 mg PO HS mirtazapine [Remeron] 30 mg Tablet 30 mg PO HS ergocalciferol (vitamin D2) [Vitamin D2] 1,250 mcg (50,000 unit) Capsule 1,250 mcg PO WK Rx Instructions: Takes once per week loratadine [Claritin] 10 mg Tablet 10 mg PO QAM Anoro Ellipta 62.5-25 mcg/actuation Blister With Device 1 inh INHALATION QAM albuterol sulfate 90 mcg/actuation Hfa Aerosol Inhaler 2 puff INHALATION DIRECTED PRN (Reason: Shortness Of Breath) loperamide [Imodium A-D] 2 mg capsule 2 mg PO Q6H PRN (Reason: loose stool) Qty: 30 0RF clonidine HCl 0.1 mg Tablet 0.1 mg PO BID carvedilol [Coreg] 25 mg Tablet 25 mg PO BID Rx Instructions: must administer with a meal/food losartan 100 mg Tablet 100 mg PO QAM phenazopyridine [Pyridium] 200 mg tablet 200 mg PO Q8H PRN (Reason: pain) Qty: 10 0RF tamsulosin 0.4 mg capsule 0.4 mg PO HS Qty: 30 0RF oxycodone-acetaminophen [Percocet] 7.5-325 mg tablet 1 tab PO Q8H PRN (Reason: pain) Qty: 7 0RF aspirin 81 mg Tablet,Delayed Release (Dr/Ec) 81 mg PO DAILY Discharge Orders: Discharge Order (Routine); Ordered 04/07/22 Ordered By: Gilberto Earl Admission Data Admit Date/Time: 04/02/22 03:28 Attending Provider: Gilberto Earl Admit Provider: Jeff Gonzalez Primary Care Provider: Abe Gleason Other Providers: Jeff Gonzalez ; Fish Amezquita ; Dima Rodriguez ; Rajeev Edmonds ; Kalya Meade ; Cm Jimenez ; Yolanda Brooks ; Marija Torres ; Lázaro Metcalf ; Jenny Johnson ; Melissa Esquivel ; Eloy Velásquez ; Sky Gayle ; Alex Staley ; Biju García ; Monique Brownlee Thomas J ; Bessy Stephens ; Mauricio Zheng ; Rajeev Goldsmith ; Silas Gutierres Andrew J. ; Rajeev Sy ; Bernard Kirk ; Jose G Verma ; Quan Alvarez ; Mack Weldon ; Bessy Chang ; Shailesh Varner ; Sky Mojica ; Cathy Ho ; Izaiah Riley ; Clive Amaro ; Kayla Palacio ; Mani Martines ; Apple Connolly ; Rambo Lyons ; Krishna Latham ; Trista Friend ; Pau Napier ; Saumya Benedict ; Aranza Hauser ; Primitivo Feng ; Parag Benson ; Sony Ludwig ; Yannick Vigil ; James Menard ; Roma Mccormick ; Mary Alice Huston ; Marely Hernández ; Natalia Matias ; Augusto Mcpherson ; Biju Monae ; Aamir Stewart ; Alanna cMcarty ; Clif Lomas Jr
[2022-04-07] MEDS: oxyCODONE HCL IR 5 MG TAB (IMMEDIATE RELEASE) PO PRN (15:15)
== END 2022-04-07 20:00 | disposition short-term general hospital (02) | DRG 699 ==
LOC: ED 19:19 → 2S 04-02 03:28

== ENCOUNTER 2022-09-28 11:28 | Inpatient (IN) ==
--- NOTE | 2022-09-28 12:05 | Emergency Department Note ---
Impression & Plan Acute right flank pain, Elevated troponin, CKD (chronic kidney disease), Acute UTI ED Provider Note NAME: JARVIS MATOS AGE: 77 SEX: F : 1945 ARRIVES VIA: Ambulance INFORMANT: Patient, ED PROVIDER(S): Reilly Frost MD CHIEF COMPLAINT: Right-sided flank and chest pain MEDICAL DECISION MAKING: Patient presents with right-sided flank and chest pain Ongoing for about a week in duration the patient has been having increasing difficulty in pain with ambulation. IV was established blood was obtained along with a chest x-ray EKG troponin COVID swab and CT abdomen pelvis noncontrast given the patient's prior history of CKD Patient is normal white count mild anemia hemoglobin of 11.3 which is significantly improved from prior. Platelet count is unremarkable. Kidney function with creatinine 1.8. CT does not show any acute findings. Chest x-ray does not show any obvious pneumonia. Patient's urinalysis does appear to be positive for infection. The patient was ordered IV antibiotics. COVID-negative. Given the patient's elevated troponin right-sided flank pain and UTI do believe the patient would benefit from admission. I did speak the on-call hospitalist service and the patient was admitted to the medicine service by Dr. Huang. Patient was noted to be hypertensive and ordered additional IV pain medication patient does take hydralazine was ordered 10 mg IV of hydralazine. Prior /Outside records reviewed: Patient has a known history of intraductal papillary mucinous neoplasm seen on MRI of the pancreas. NANCY CKD hyperkalemia hypertension kidney stones requiring bilateral ureteral stent placement history of E. coli UTI generalized anxiety acute on chronic respiratory failure. Differential diagnosis: Renal colic, UTI, appendicitis, diverticulitis, mesenteric ischemia, aortic pathology, infections, inflammatory bowel disease, PUD, biliary pathology, as well as other pathologies. Diagnostics, as interpreted by me: ECG: None Cardiac monitoring: An order was placed for continuous cardiac monitoring. The monitor shows a rate of 55 with sinus rhythm. Patient was placed on pulse oximetry Medical decision rules: None Imaging studies: See below I informally reviewed the patient's chest x-ray shows no obvious pneumothorax. HPI: Patient presents due to concern for right-sided flank and lower chest wall pain. The patient denies any falls or trauma. The patient does complain of increasing discomfort with ambulation and associated weakness. The patient has been taking Oxy at home with mild improvement in symptoms but it does not last long enough. Patient does have a known history of ureteral stents but currently does not have them. The patient denies any cough or fever. The patient describes it as sharp and to the right chest and flank. Patient denies any blood in urine or stool. No dysuria. Patient does wear oxygen at all times. Patient currently lives with her daughter. PAST MEDICAL HISTORY: See Below PAST SURGICAL HISTORY: See Below SOCIAL HISTORY: See Below HOME MEDICATIONS: See Below ALLERGIES: See Below VITALS: See Below PHYSICAL EXAMINATION: GENERAL: NAD, nasal cannula in place, non-toxic. EYE EXAM: Normal conjunctiva. PERRL, no anisocoria and EOM's grossly intact w/o pain. NECK: Supple, no nuchal rigidity, no adenopathy, non-tender. No signs of meningismus. FROM of the neck with good chin to chest and neck extension. No stridor. LUNGS: Bibasilar crackles. Normal chest wall mechanics. HEART: NSR, no MRG. ABDOMEN: Abdomen soft, non-tender, no masses, no rebound or guarding. BACK: Right-sided CVA TTP. SKIN: No rashes and no bruising. UPPER EXTREMITIES: Upper extremities are grossly normal. LOWER EXTREMITIES: Grossly normal, no edema. NEURO EXAM: A&O x3, cranial nerves II-XII grossly intact, normal speech, moves all 4 extremities. 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 pulmonary disease) with chronic respiratory failure per discharge summary records 01/27/22 Degenerative joint disease of right hip Fracture of right hip hx GERD (gastroesophageal reflux disease) History of blood transfusion 01/08 HLD (hyperlipidemia) HTN (hypertension) Kidney stones Migraine On home oxygen therapy 2lpm via n/c PRN Pancreatic cyst monitoring Rhabdomyolysis pt's family denies Surgical History H/O knee surgery Left wide osteotomy for extra cartilidge History of colonoscopy History of esophagogastroduodenoscopy (EGD) History of hip surgery r/t congenital hip deformity as a young child. History of removal of ovarian cyst History of total hip arthroplasty right Hx of appendectomy Hx of hernia repair Hx of hysterectomy Family History Mother Coronary heart disease Father Coronary heart disease Brother Diabetes Brother Coronary heart disease Other Heart disease Hypertension No family history of adverse response to anesthesia Social History Smoking Status: Former smoker Tobacco Type: Cigarettes Cigarettes Per Day: 2; Second Hand Exposure: No; Do You Dip or Chew Tobacco: No; Hx Alcohol Use: No Hx Substance Use: No Preferred Language: Malian Communication Ability: Effective Visual Impairment: No Limitations Homemaker Companion Required: No Beliefs That Will Affect Care: None marital status: / Current Living Situation: Family Current Living Situation Comment: daughter How many Children do You have: 2 Feels Safe at Home: Yes Safety Concerns: Feels Safe At This Time Assistive Devices: Denture - Upper, Denture - Lower, Oxygen - Continuous and Wheelchair Allergies Allergies Allergy/AdvReac Type Severity Reaction Status Date / Time metronidazole [From Flagyl] Allergy Severe SHORTNESS Verified 09/28/22 15:58 OF BREATH amlodipine AdvReac Intermediate left leg Verified 09/28/22 15:58 numbness cefuroxime AdvReac Intermediate Gastrointestinal Verified 09/28/22 15:58 Upset Cephalosporins AdvReac Intermediate Gastrointestinal Verified 09/28/22 15:58 Upset ciprofloxacin AdvReac Intermediate Gastrointestinal Verified 09/28/22 15:58 Upset erythromycin base AdvReac Intermediate Gastrointestinal Verified 09/28/22 15:58 Upset sulfamethoxazole AdvReac Intermediate hyperkalemi Verified 09/28/22 15:58 [From Bactrim] a trimethoprim [From Bactrim] AdvReac Intermediate hyperkalemi Verified 09/28/22 15:58 a Home Meds Home Medications Medication Instructions Recorded Confirmed albuterol sulfate 90 mcg/actuation 2 puff inhalation DIRECTED PRN 12/21/21 09/28/22 aerosol inhaler Shortness Of Breath alprazolam 0.5 mg tablet (Xanax) 0.25 - 0.5 mg PO BID PRN Anxiety 12/21/21 09/28/22 hydralazine 100 mg tablet 100 mg PO BID 12/21/21 09/28/22 loratadine 10 mg tablet (Claritin) 10 mg PO QAM 12/21/21 09/28/22 pantoprazole 40 mg tablet,delayed 40 mg PO BID 12/21/21 09/28/22 release (Protonix) clonidine HCl 0.1 mg tablet 0.1 mg PO BID 03/16/22 09/28/22 aspirin 81 mg tablet,delayed 81 mg PO DAILY 04/01/22 09/28/22 release escitalopram oxalate 5 mg tablet 5 mg PO DAILY 06/01/22 09/28/22 ferrous sulfate 325 mg (65 mg 325 mg PO DAILY 06/01/22 09/28/22 iron) tablet oxycodone 5 mg tablet 5 mg PO BID 06/01/22 09/28/22 carvedilol 25 mg tablet 25 mg PO BID 09/28/22 09/28/22 cholecalciferol (vitamin D3) 1,250 50,000 unit PO WE 09/28/22 09/28/22 mcg (50,000 unit) capsule fluticasone propionate 110 1 puff inhalation BID 09/28/22 09/28/22 mcg/actuation HFA aerosol inhaler fluticasone propionate 50 2 spray intranasal Q12 09/28/22 09/28/22 mcg/actuation nasal spray,suspension furosemide 20 mg tablet 20 mg PO DAILY PRN .edema 09/28/22 09/28/22 multivitamin 1 tab PO DAILY 09/28/22 09/28/22 ondansetron 4 mg disintegrating 8 mg translingual BID PRN Nausea 09/28/22 09/28/22 tablet potassium chloride 10 mEq 10 meq PO DAILY PRN .When takes 09/28/22 09/28/22 capsule,extended release lasix umeclidinium 62.5 mcg-vilanterol 1 ea inhalation DAILY 09/28/22 09/28/22 25 mcg/actuation powdr for inhalation (Anoro Ellipta) Previous Rx's Medication Instructions Recorded tamsulosin 0.4 mg capsule 0.4 mg PO HS #30 caps 03/24/22 Results & Data (ED) Vital Signs Vital Signs - 24 hr 09/28/22 11:57 09/28/22 11:57 09/28/22 11:57 Temperature 36.4 C L Temperature Source Oral Pulse Rate 45 L Pulse Rate [Apical] Pulse Rate from SpO2 Sensor Pulse Rhythm Regular Pulse Strength Normal Respiratory Rate 20 Respiratory Effort / Characteristics Non-Labored Short of Breath Short of Breath Respiratory Depth Normal Normal Respiratory Pattern Regular Blood Pressure 223/72 H Blood Pressure [Right Arm] Blood Pressure Mean 122 Blood Pressure Mean [Right Arm] Blood Pressure Position Lying Pulse Oximetry 98 Oxygen Delivery Method Nasal Cannula Nasal Cannula Oxygen Flow Rate 2 2 Sepsis Recent Fever Within 48 Hours No Sepsis New/Unexplained Change in Mental Status No Sepsis Action Taken by Nursing No Action Required 09/28/22 11:57 09/28/22 12:13 09/28/22 12:55 Temperature Temperature Source Pulse Rate 47 L Pulse Rate [Apical] Pulse Rate from SpO2 Sensor Pulse Rhythm Regular Pulse Strength Respiratory Rate 20 20 Respiratory Effort / Characteristics Non-Labored Short of Breath Respiratory Depth Normal Respiratory Pattern Blood Pressure Blood Pressure [Right Arm] 223/72 H Blood Pressure Mean Blood Pressure Mean [Right Arm] 122 Blood Pressure Position Pulse Oximetry 98 Oxygen Delivery Method Nasal Cannula Nasal Cannula Nasal Cannula Oxygen Flow Rate 2 2 Sepsis Recent Fever Within 48 Hours Sepsis New/Unexplained Change in Mental Status Sepsis Action Taken by Nursing 09/28/22 13:15 09/28/22 13:13 09/28/22 13:30 Temperature Temperature Source Pulse Rate 48 L 48 L 44 L Pulse Rate [Apical] Pulse Rate from SpO2 Sensor 46 L 46 L Pulse Rhythm Pulse Strength Respiratory Rate 14 18 Respiratory Effort / Characteristics Respiratory Depth Respiratory Pattern Blood Pressure Blood Pressure [Right Arm] Blood Pressure Mean Blood Pressure Mean [Right Arm] Blood Pressure Position Pulse Oximetry 97 97 Oxygen Delivery Method Nasal Cannula Oxygen Flow Rate 2 Sepsis Recent Fever Within 48 Hours Sepsis New/Unexplained Change in Mental Status Sepsis Action Taken by Nursing 09/28/22 13:57 09/28/22 13:57 09/28/22 14:00 Temperature Temperature Source Pulse Rate 62 52 L Pulse Rate [Apical] Pulse Rate from SpO2 Sensor 57 L 51 L Pulse Rhythm Pulse Strength Respiratory Rate 22 14 Respiratory Effort / Characteristics Respiratory Depth Respiratory Pattern Blood Pressure 208/74 H Blood Pressure [Right Arm] Blood Pressure Mean 163 Blood Pressure Mean [Right Arm] Blood Pressure Position Pulse Oximetry 96 98 Oxygen Delivery Method Oxygen Flow Rate Sepsis Recent Fever Within 48 Hours Sepsis New/Unexplained Change in Mental Status Sepsis Action Taken by Nursing 09/28/22 14:30 09/28/22 15:00 09/28/22 15:30 Temperature Temperature Source Pulse Rate 43 L 56 L Pulse Rate [Apical] 58 L Pulse Rate from SpO2 Sensor 45 L 55 L Pulse Rhythm Pulse Strength Respiratory Rate 16 17 18 Respiratory Effort / Characteristics Non-Labored Respiratory Depth Normal Respiratory Pattern Blood Pressure Blood Pressure [Right Arm] 219/91 H Blood Pressure Mean Blood Pressure Mean [Right Arm] 133 Blood Pressure Position Pulse Oximetry 99 98 98 Oxygen Delivery Method Room Air Oxygen Flow Rate Sepsis Recent Fever Within 48 Hours Sepsis New/Unexplained Change in Mental Status Sepsis Action Taken by [place] Medications Current Medication List: was personally reviewed by me Laboratory Data Attestation: I reviewed the patient's lab results. 09/28/22 12:09 09/28/22 12:09 Lab Results 09/28/22 09/28/22 09/28/22 Range/Units 12:09 12:09 12:09 WBC 7.40 (4.8-10.8) K/ul RBC 3.98 L (4.20-5.40) M/uL Hgb 11.3 L (12.0-16.0) g/dl Hct 35.4 L (37.0-47.0) % MCV 88.9 (80.0-100.0) fL MCH 28.4 (25.0-34.0) pg MCHC 31.9 L (32.0-36.0) g/dL RDW Std Deviation 45.0 (36.4-46.3) fL RDW Coeff of Chuy 13.8 (11.5-14.5) % Plt Count 222 (130-400) K/uL MPV 9.5 (9.4-12.4) fL Immature Gran % (Auto) 0.4 % Neut % (Auto) 70.9 % Lymph % (Auto) 15.9 % Whitfield % (Auto) 7.2 % Eos % (Auto) 5.3 % Baso % (Auto) 0.3 % Neut # (Auto) 5.25 (1.40-6.50) K/uL Lymph # (Auto) 1.18 L (1.2-3.4) K/uL Whitfield # (Auto) 0.53 (0.11-0.59) K/uL Eos # (Auto) 0.39 (0-0.50) K/uL Baso # (Auto) 0.02 (0-0.2) K/uL Immature Gran # (Auto) 0.03 (0.01-0.20) K/uL PT 10.9 (9.0-12.0) Seconds INR 1.0 (0.9-1.1) APTT 26.0 (21.0-31.0) Seconds PTT Ratio 0.9 Sodium 138 (136-145) mmol/L Potassium 4.9 (3.5-5.1) mmol/L Chloride 100 (98-107) mmol/L Carbon Dioxide 32 (21-32) mmol/L Anion Gap 6 (3-11) BUN 28 H (6-23) mg/dl Creatinine 1.80 H (0.6-1.2) mg/dl Est Cr Clr Drug Dosing 23.5 ml/min Est GFR ( Amer) 30.7 ml/min Est GFR (Non-Af Amer) 26.5 ml/min BUN/Creatinine Ratio 15.6 (10-20) Glucose 121 H (70-99(Fasting)) mg/dl Calcium 10.8 H (8.6-10.3) mg/dl Total Bilirubin 0.4 (0.2-1.0) mg/dl AST 13 (13-39) U/L ALT 8 (7-52) U/L Alkaline Phosphatase 67 (34-104) U/L Troponin I High Sens 21.0 H (0-14) pg/ml Total Protein 7.9 (6.0-8.3) gm/dl Albumin 4.4 (3.4-5.0) gm/dl Globulin 3.5 (2.5-4.0) gm/dl Albumin/Globulin Ratio 1.3 (0.9-2) Lipase 20 (11-82) U/L Urine Color Urine Appearance (Clear) Urine pH (4.5-7.5) Ur Specific Dierks (1.000-1.030) Urine Protein (Negative) Urine Glucose (UA) (Negative) Urine Ketones (Negative) Urine Blood (Negative) Urine Nitrite (Negative) Urine Bilirubin (Negative) Urine Urobilinogen (Negative) Ur Leukocyte Esterase (Negative) Urine WBC (Auto) (0-5) /hpf Urine RBC (Auto) (0-4) /hpf U Hyaline Cast (Auto) (0-5) /lpf U Epithel Cells (Auto) (0-5) /lpf Urine Bacteria (Auto) (Negative) SARS-CoV-2, RNA, NAAT (NEGATIVE) 09/28/22 09/28/22 Range/Units 12:09 14:47 WBC (4.8-10.8) K/ul RBC (4.20-5.40) M/uL Hgb (12.0-16.0) g/dl Hct (37.0-47.0) % MCV (80.0-100.0) fL MCH (25.0-34.0) pg MCHC (32.0-36.0) g/dL RDW Std Deviation (36.4-46.3) fL RDW Coeff of Chuy (11.5-14.5) % Plt Count (130-400) K/uL MPV (9.4-12.4) fL Immature Gran % (Auto) % Neut % (Auto) % Lymph % (Auto) % Whitfield % (Auto) % Eos % (Auto) % Baso % (Auto) % Neut # (Auto) (1.40-6.50) K/uL Lymph # (Auto) (1.2-3.4) K/uL Whitfield # (Auto) (0.11-0.59) K/uL Eos # (Auto) (0-0.50) K/uL Baso # (Auto) (0-0.2) K/uL Immature Gran # (Auto) (0.01-0.20) K/uL PT (9.0-12.0) Seconds INR (0.9-1.1) APTT (21.0-31.0) Seconds PTT Ratio Sodium (136-145) mmol/L Potassium (3.5-5.1) mmol/L Chloride (98-107) mmol/L Carbon Dioxide (21-32) mmol/L Anion Gap (3-11) BUN (6-23) mg/dl Creatinine (0.6-1.2) mg/dl Est Cr Clr Drug Dosing ml/min Est GFR ( Amer) ml/min Est GFR (Non-Af Amer) ml/min BUN/Creatinine Ratio (10-20) Glucose (70-99(Fasting)) mg/dl Calcium (8.6-10.3) mg/dl Total Bilirubin (0.2-1.0) mg/dl AST (13-39) U/L ALT (7-52) U/L Alkaline Phosphatase (34-104) U/L Troponin I High Sens (0-14) pg/ml Total Protein (6.0-8.3) gm/dl Albumin (3.4-5.0) gm/dl Globulin (2.5-4.0) gm/dl Albumin/Globulin Ratio (0.9-2) Lipase (11-82) U/L Urine Color Yellow Urine Appearance Clear (Clear) Urine pH 6.5 (4.5-7.5) Ur Specific Dierks 1.021 (1.000-1.030) Urine Protein 3+ H (Negative) Urine Glucose (UA) Negative (Negative) Urine Ketones Negative (Negative) Urine Blood Negative (Negative) Urine Nitrite Positive A (Negative) Urine Bilirubin Negative (Negative) Urine Urobilinogen Negative (Negative) Ur Leukocyte Esterase Trace H (Negative) Urine WBC (Auto) 10-30 H (0-5) /hpf Urine RBC (Auto) 0-4 (0-4) /hpf U Hyaline Cast (Auto) 1-5 (0-5) /lpf U Epithel Cells (Auto) 20-30 H (0-5) /lpf Urine Bacteria (Auto) 3+ H (Negative) SARS-CoV-2, RNA, NAAT NEGATIVE (NEGATIVE) Administered Medications Alprazolam (Alprazolam 0.5 Mg Tablet) 0.5 mg PO BID PRN PRN Reason: Anxiety Stop: 10/28/22 18:58 Last Admin: 09/28/22 19:22 Dose: 0.5 mg Documented By: MALENAE Discontinued Medications Fentanyl Citrate (Fentanyl Citrate Pf 100 Mcg/2 Ml Vial) 25 mcg IV NOW STA Stop: 09/28/22 12:15 Last Admin: 09/28/22 12:31 Dose: 25 mcg Documented By: BINU Hydralazine HCl (Hydralazine Hcl 20 Mg/Ml Vial) 10 mg IV NOW STA Stop: 09/28/22 16:13 Last Admin: 09/28/22 16:36 Dose: 10 mg Documented By: LILLI Hydralazine HCl (Hydralazine Hcl 20 Mg/Ml Vial) 10 mg IV NOW STA Stop: 09/28/22 17:48 Last Admin: 09/28/22 17:55 Dose: 10 mg Documented By: DEWEY Cefepime HCl (Maxipime) 2,000 mg in 20 mls @ 5 mls/min IV NOW STA; Protocol Stop: 09/28/22 15:43 Last Admin: 09/28/22 16:17 Dose: 5 mls/min Documented By: DARYL Morphine Sulfate (Morphine Sulfate 4 Mg/Ml 1 Ml Carp\Vial) 4 mg IV NOW STA Stop: 09/28/22 15:41 Last Admin: 09/28/22 16:10 Dose: 4 mg Documented By: DARYL Oxycodone HCl (Oxycodone Hcl Ir 5 Mg Tab (Immediate Release)) 5 mg PO NOW STA Stop: 09/28/22 17:48 Last Admin: 09/28/22 17:55 Dose: 5 mg Documented By: DEWEY Imaging Data Radiologist's Impression: Abdomen/Pelvis CT 09/28/22 12:13 CT abd pelvis wo con CLINICAL HISTORY: R sided flank/lower chest wall pain; h/o stone TECHNIQUE: Helical axial images of the abdomen and pelvis were obtained. Automated dose lowering techniques and/or adjustment according to patient size were utilized for this exam. This exam was performed without intravenous contrast. CT DOSE: 1112.06 mGy.cm COMPARISON: Comparison is made to CT abdomen pelvis 04/01/2022 FINDINGS: Lower chest: Possible thickening is seen. Right lower lung atelectasis is seen. Liver: Unremarkable. No focal lesions are seen. Gallbladder and biliary tree: No calcified gallstones. Normal caliber wall. No intra- or extrahepatic biliary ductal dilation. Pancreas: Unremarkable, no focal lesions. Spleen: Unremarkable. Adrenals: Unremarkable. Kidneys and ureters: Nonobstructive nephrolithiasis is seen. Bladder: Unremarkable. Reproductive organs: Patient is status post hysterectomy. Bowel: Diverticulosis is seen without evidence of diverticulitis. Patient is status post appendectomy. Lymph nodes Retroperitoneal: There is a 12 mm left para-aortic lymph node which is unchanged from prior exam. Pelvic: Unremarkable. Mesenteric: Unremarkable. Peritoneum: Normal. Vessels: Atherosclerotic calcifications are seen. Abdominal wall: A fat-containing umbilical hernia is seen. Bones: Degenerative changes in the visualized spine. Left hip arthroplasty is seen with chronic deformities. IMPRESSION: 1. No acute abnormalities are seen in the abdomen. In particular, no obstructive stone in this patient with right sided abdominal pain. 2. Diverticulosis without diverticulitis 3. Previously noted cystic lesion in the distal pancreatic body is no longer seen. ACT 112: Negative or not required by law. Electronically signed by: Sherman Coats M.D. 09/28/2022 2:38 PM Chest X-Ray 09/28/22 12:13 SINGLE VIEW CHEST CLINICAL HISTORY: Atypical chest pain. FINDINGS: An AP, portable, upright chest radiograph is compared to study dated 04/01/2022. Correlation is made with chest CT dated 01/21/2022. The heart is mildly enlarged noting atherosclerotic calcification of the thoracic aorta. The pulmonary vasculature is noncongested. Chronic interstitial thickening is similar to previous. The lungs and pleural spaces are clear. No pneumothorax is seen. The skeletal structures are osteopenic. The bony thorax is grossly intact. IMPRESSION: No active disease in the chest. ACT 112: Negative or not required by law. Electronically signed by: Horacio Motta M.D. 09/28/2022 1:03 PM Discharge Plan Visit Data Chief Complaint: Chest Pain Stated Complaint: R FLANK & R CHEST PAIN, SOB ED Provider: Reilly Frost Discharge Problem: Acute right flank pain, Elevated troponin, CKD (chronic kidney disease), Acute UTI Patient Disposition: Admitted As Inpatient Discharge Instructions Interventions: ED Discharge Assessment Last Done: 09/28/22 17:41
[2022-09-28] MEDS ORDERED: fentaNYL citrate PF 100 MCG/2 ML VIAL IV STA (12:14)
[2022-09-28 12:42] LABS: Basophils # (auto) 0.02 K/uL (0-0.2); Basophils % (auto) 0.3 %; Eosinophils # (auto) 0.39 K/uL (0-0.50); Eosinophils % (auto) 5.3 %; Hematocrit (blood only) 35.4 % (37.0-47.0); Hemoglobin 11.3 g/dl (12.0-16.0); Immature Granulocytes # (auto) 0.03 K/uL (0.01-0.20); Immature Granulocytes % (auto) 0.4 %; Lymphocytes # (auto) 1.18 K/uL (1.2-3.4); Lymphocytes % (auto) 15.9 %; Mean Corpuscular Hemoglobin 28.4 pg (25.0-34.0); Mean Corpuscular Hgb Conc 31.9 g/dL (32.0-36.0); Mean Corpuscular Volume 88.9 fL (80.0-100.0); Mean Platelet Volume 9.5 fL (9.4-12.4); Monocytes # (auto) 0.53 K/uL (0.11-0.59); Monocytes % (auto) 7.2 %; Neutrophils # (auto) 5.25 K/uL (1.40-6.50); Neutrophils % (auto) 70.9 %; Platelet Count 222 K/uL (130-400); RDW Coefficient of Variation 13.8 % (11.5-14.5); Red Blood Count 3.98 M/uL (4.20-5.40)
[2022-09-28 13:05] LABS: Albumin Globulin Ratio 1.3 (0.9-2); Albumin Level 4.4 gm/dl (3.4-5.0); BUN Creatinine Ratio 15.6 (10-20); Bilirubin,Total 0.4 mg/dl (0.2-1.0); Calcium 10.8 mg/dl (8.6-10.3); Creatinine Clr Calc Pharmacy 23.5 ml/min; Est GFR (African American) 30.7 ml/min; Est GFR (Non-African American) 26.5 ml/min; Globulin 3.5 gm/dl (2.5-4.0); Potassium 4.9 mmol/L (3.5-5.1); Total Protein 7.9 gm/dl (6.0-8.3)
--- NOTE | 2022-09-28 13:05 | XRay Report ---
SINGLE VIEW CHEST CLINICAL HISTORY: Atypical chest pain. FINDINGS: An AP, portable, upright chest radiograph is compared to study dated 04/01/2022. Correlation is made with chest CT dated 01/21/2022. The heart is mildly enlarged noting atherosclerotic calcifica tion of the thoracic aorta. The pulmonary vasculature is noncongested. Chronic interstitial thickenin g is similar to previous. The lungs and pleural spaces are clear. No pneumothorax is seen. The skelet al structures are osteopenic. The bony thorax is grossly intact. IMPRESSION: No active disease in the chest. ACT 112: Negative or not required by law. Electronically signed by: Horacio Motta M.D. 09/28/2022 1:03 PM
[2022-09-28 13:13] LABS: Partial Thromboplastin Ratio 0.9; Prothrombin Time 10.9 Seconds (9.0-12.0)
--- NOTE | 2022-09-28 14:40 | CT Scan Report ---
CT abd pelvis wo con CLINICAL HISTORY: R sided flank/lower chest wall pain; h/o stone TECHNIQUE: Helical axial images of the abdomen and pelvis were obtained. Automated dose lowering tech niques and/or adjustment according to patient size were utilized for this exam. This exam was perfor med without intravenous contrast. CT DOSE: 1112.06 mGy.cm COMPARISON: Comparison is made to CT abdomen pelvis 04/01/2022 FINDINGS: Lower chest: Possible thickening is seen. Right lower lung atelectasis is seen. Liver: Unremarkable. No focal lesions are seen. Gallbladder and biliary tree: No calcified gallstones. Normal caliber wall. No intra- or extrahepatic biliary ductal dilation. Pancreas: Unremarkable, no focal lesions. Spleen: Unremarkable. Adrenals: Unremarkable. Kidneys and ureters: Nonobstructive nephrolithiasis is seen. Bladder: Unremarkable. Reproductive organs: Patient is status post hysterectomy. Bowel: Diverticulosis is seen without evidence of diverticulitis. Patient is status post appendectomy . Lymph nodes Retroperitoneal: There is a 12 mm left para-aortic lymph node which is unchanged from prior exam. Pelvic: Unremarkable. Mesenteric: Unremarkable. Peritoneum: Normal. Vessels: Atherosclerotic calcifications are seen. Abdominal wall: A fat-containing umbilical hernia is seen. Bones: Degenerative changes in the visualized spine. Left hip arthroplasty is seen with chronic defor mities. IMPRESSION: 1. No acute abnormalities are seen in the abdomen. In particular, no obstructive stone in this patie nt with right sided abdominal pain. 2. Diverticulosis without diverticulitis 3. Previously noted cystic lesion in the distal pancreatic body is no longer seen. ACT 112: Negative or not required by law. Electronically signed by: Sherman Coats M.D. 09/28/2022 2:38 PM
[2022-09-28 15:15] LABS: Appearance Urine Clear (Clear); Bacteria Urine Automated 3+ (Negative); Bilirubin Urine Negative (Negative); Blood Urine Negative (Negative); Color Urine Yellow; Epithelial Cell Urine Auto 20-30 /lpf (0-5); Glucose Urine UA Negative (Negative); Ketones Urine Negative (Negative); Leukocyte Esterase Urine Trace (Negative); Nitrite Urine Positive (Negative); Protein Urine 3+ (Negative); RBC Urine Automated 0-4 /hpf (0-4); Specific Gravity Urine 1.021 (1.000-1.030); Urobilinogen Urine Negative (Negative); pH Urine 6.5 (4.5-7.5)
[2022-09-28] MEDS ORDERED: CEFEPIME 2,000 MG/20 ML VIAL IV STA (15:40)
[2022-09-28] MEDS ORDERED: MoRPHine SULFATE 4 MG/ML 1 ML CARP\\VIAL IV STA (15:40)
[2022-09-28] MEDS ORDERED: hydrALAZINE HCL 20 MG/ML VIAL IV STA ×2 (16:12→17:47)
--- NOTE | 2022-09-28 17:26 | History & Physical Report ---
Date of Service September 28, 2022 Assessment & Plan (1) UTI (urinary tract infection): (2) Hypertensive urgency: (3) CKD (chronic kidney disease): (4) COPD (chronic obstructive pulmonary disease): (5) Chronic respiratory failure: Plan This is a 69-year-old female who has significant past medical history of chronic hypoxic respiratory failure on 2-3 L of oxygen, COPD, HTN, HLD, CKD-3, gastritis, GERD, IBS, history of E. coli UTI, depression with anxiety, history of tobacco abuse and wheelchair-bound status who presents to ED secondary to pain under right breast x1 week. Hypertensive Urgency Elevated troponin Admit to telemetry Patient received IV hydralazine in ED without much improvement On clonidine 0.1 mg twice daily, carvedilol 25 mg twice daily and hydralazine 100 mg twice daily last echo 2020 EF 65%, grade II DD bhakti update echo, cycle trops possibly in setting of infection, pyelonephritis continue home meds, prn IV hydralazine, will monitor BP closely pt w/o overt chest pain UTI, possible pyelonephritis in setting of R sided flank pain/abd pain hx of nephrolithiasis requiring stent placement - CT a/p w/o obs stone, GB w/o stone previous urine culture grew resistant e. coli continue IV cefepime await blood/urine cultures Chronic hypoxic resp failure on 2-3L of O2 at baseline COPD w/o exac Past tobacco abuse Continue supplemental oxygen Continue home inhalers CKD-3 baseline 1.6-1.8 HLD continue statin Chronic anemia Hemoglobin stable at 11 Previously had iron panel, folate and B12 levels in March 2022 which was unremarkable Depression with anxiety Continue Xanax as needed DVT ppx: SQ Heparin DNR/DNI PCP: Abe Gleason Pt was seen and examined in collaboration with Dr. Huang, please see addendum A total of 85 was spent coordinating, documenting, and providing care for this patient excluding time spent in the performance of separately billed services. This included personally viewing all current laboratories and imaging studies, medication reconciliation, outpatient chart review, and discussion with specialists. History of Present Illness Chief Complaint: Pain under Right breast x 1 week. Primary Care Provider: Horacio Sanchez MD This is a 69-year-old female who has significant past medical history of chronic hypoxic respiratory failure on 2-3 L of oxygen, COPD, HTN, HLD, CKD-3, gastri tis, GERD, IBS, history of E. coli UTI, depression with anxiety, history of tobacco abuse and wheelchair-bound status who presents to ED secondary to pain under right breast x1 week. She lives at home with her daughter. She is mostly wheelchair-bound due to previous hip fracture but is able to transfer with assist. She presents to ED today due to pain under her right breast that is radiating to her back and has been present for the past week. Pain has been off and on but more persistent the past 2 days. She also complains of dysuria, increased urgency or frequency with UTI and does have history of urinary tract infection. She states her daughter manages her medications at home and took her blood pressure this morning and it was in the 220s. When she took it manually it was 160. She took all of her morning medications today. She denies any other recent illness. She states that she is always cold but denies any documented fever or sweats. She does occasionally feel lightheaded and off- balance. She denies any lucia substernal chest pain, diaphoresis or nausea. She states her blood pressure is always on the higher side despite multiple medications. She denies any vomiting, hematemesis, abdominal pain, melena or hematochezia. In ED patient had abnormal urinalysis. She received IV cefepime due to previously resistant E. coli urine culture. Her H&H was stable at 11.3 a nd 35.4. Her BUN and creatinine were 28 and 1.80. Her troponin was mildly elevated at 21. Her blood pressure was significantly elevated in ED with systolic blood pressures greater than 200s. She did receive 10 mg of IV hydralazine. Allergies Allergy/AdvReac Type Severity Reaction Status Date / Time metronidazole [From Flagyl] Allergy Severe SHORTNESS Verified 09/28/22 15:58 OF BREATH amlodipine AdvReac Intermediate left leg Verified 09/28/22 15:58 numbness cefuroxime AdvReac Intermediate Gastrointestinal Verified 09/28/22 15:58 Upset Cephalosporins AdvReac Intermediate Gastrointestinal Verified 09/28/22 15:58 Upset ciprofloxacin AdvReac Intermediate Gastrointestinal Verified 09/28/22 15:58 Upset erythromycin base AdvReac Intermediate Gastrointestinal Verified 09/28/22 15:58 Upset sulfamethoxazole AdvReac Intermediate hyperkalemi Verified 09/28/22 15:58 [From Bactrim] a trimethoprim [From Bactrim] AdvReac Intermediate hyperkalemi Verified 09/28/22 15:58 a Home Medications Medication Instructions Recorded Confirmed Type albuterol sulfate 90 mcg/actuation 2 puff inhalation DIRECTED PRN 12/21/21 09/28/22 History aerosol inhaler Shortness Of Breath alprazolam 0.5 mg tablet (Xanax) 0.25 - 0.5 mg PO BID PRN Anxiety 12/21/21 09/28/22 History hydralazine 100 mg tablet 100 mg PO BID 12/21/21 09/28/22 History loratadine 10 mg tablet (Claritin) 10 mg PO QAM 12/21/21 09/28/22 History pantoprazole 40 mg tablet,delayed 40 mg PO BID 12/21/21 09/28/22 History release (Protonix) clonidine HCl 0.1 mg tablet 0.1 mg PO BID 03/16/22 09/28/22 History tamsulosin 0.4 mg capsule 0.4 mg PO HS #30 caps 03/24/22 09/28/22 Rx aspirin 81 mg tablet,delayed 81 mg PO DAILY 04/01/22 09/28/22 History release escitalopram oxalate 5 mg tablet 5 mg PO DAILY 06/01/22 09/28/22 History ferrous sulfate 325 mg (65 mg 325 mg PO DAILY 06/01/22 09/28/22 History iron) tablet oxycodone 5 mg tablet 5 mg PO BID 06/01/22 09/28/22 History carvedilol 25 mg tablet 25 mg PO BID 09/28/22 09/28/22 History cholecalciferol (vitamin D3) 1,250 50,000 unit PO WE 09/28/22 09/28/22 History mcg (50,000 unit) capsule fluticasone propionate 110 1 puff inhalation BID 09/28/22 09/28/22 History mcg/actuation HFA aerosol inhaler fluticasone propionate 50 2 spray intranasal Q12 09/28/22 09/28/22 History mcg/actuation nasal spray,suspension furosemide 20 mg tablet 20 mg PO DAILY PRN .edema 09/28/22 09/28/22 History multivitamin 1 tab PO DAILY 09/28/22 09/28/22 History ondansetron 4 mg disintegrating 8 mg translingual BID PRN Nausea 09/28/22 09/28/22 History tablet potassium chloride 10 mEq 10 meq PO DAILY PRN .When takes 09/28/22 09/28/22 History capsule,extended release lasix umeclidinium 62.5 mcg-vilanterol 1 ea inhalation DAILY 09/28/22 09/28/22 History 25 mcg/actuation powdr for inhalation (Anoro Ellipta) 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 pulmonary disease) with chronic respiratory failure per discharge summary records 01/27/22 Degenerative joint disease of right hip Fracture of right hip hx GERD (gastroesophageal reflux disease) History of blood transfusion 01/08 HLD (hyperlipidemia) HTN (hypertension) Kidney stones Migraine On home oxygen therapy 2lpm via n/c PRN Pancreatic cyst monitoring Rhabdomyolysis pt's family denies Surgical History H/O knee surgery History of colonoscopy History of esophagogastroduodenoscopy (EGD) History of hip surgery History of removal of ovarian cyst History of total hip arthroplasty Hx of appendectomy Hx of hernia repair Hx of hysterectomy Family History Mother Coronary heart disease Father Coronary heart disease Brother Diabetes Brother Coronary heart disease Other Heart disease Hypertension No family history of adverse response to anesthesia Social History Smoking Status: Former smoker Tobacco Type: Cigarettes Cigarettes Per Day: 2; Second Hand Exposure: No; Do You Dip or Chew Tobacco: No; Hx Alcohol Use: No Hx Substance Use: No Preferred Language: Spanish Communication Ability: Effective Visual Impairment: No Limitations [place] House Operator Required: No Beliefs That Will Affect Care: None marital status: / Current Living Situation: Family Current Living Situation Comment: daughter How many Children do You have: 2 Feels Safe at Home: Yes Safety Concerns: Feels Safe At This Time Assistive Devices: Denture - Upper, Denture - Lower, Oxygen - Continuous and Wheelchair Review of Systems Review of Systems: All systems reviewed & are unremarkable except as noted in HPI & below Physical Exam Physical Exam: Constitutional: Chronically ill appearing F, obese appearing, vitals as above, NAD, appears fatigued, sitting up in bed, good bed mobility, pleasant, conversing easily Head: Normocephalic, Atraumatic Eyes: PERRL, conjunctivae normal, anicteric sclerae ENMT: external ear and nose normal, oropharynx normal dry membnraes Neck: trachea midline, no thyromegaly normal visual inspection Respiratory: normal respiratory effort, lungs clear to auscultation, no wheeze, rales, rhonchi. Normal insp/exp effort, no accessory muscle use Cardiovascular: RRR, no murmur, no edema Vessels: no JVD or carotid bruit Chest: normal inspection of chest , no pain to palpation of chest wall, +Pain to palpation under R breast in RUQ region of abd, no erythema or rash Abdomen: normal bowel sounds, soft, nontender, no hepatosplenomegaly +mild cva tenderness on right Musculoskeletal: no cyanosis or clubbing, AROM x 4, Skin: no rashes, warm and dry normal turgor Neurologic: PERRL, EOMI, accommodation nl, no face palsy, no dysarthria CN's II-XI intact bilaterally and moves all extremities Psychiatric: A+Ox3, euthymic affect Lymphatic: no cervical or axillary lymphadenopathy : deferred Results & Data Results & Data Vital Signs (Past 12 Hours) Vital Signs Temp Pulse Pulse Resp BP BP Pulse Ox 09/28/22 17:00 57 L 17 228/96 H 98 09/28/22 15:30 58 L 18 219/91 H 98 09/28/22 15:00 56 L 17 98 09/28/22 14:30 43 L 16 99 09/28/22 14:00 52 L 14 98 09/28/22 13:57 208/74 H 09/28/22 13:57 62 22 96 09/28/22 13:30 44 L 18 97 09/28/22 13:13 48 L 14 97 09/28/22 13:15 48 L 09/28/22 12:55 47 L 20 09/28/22 12:13 09/28/22 11:57 20 223/72 H 98 09/28/22 11:57 09/28/22 11:57 36.4 C L 45 L 20 223/72 H 98 O2 Del Method O2 Flow Rate 09/28/22 17:00 Room Air 09/28/22 15:30 Room Air 09/28/22 15:00 09/28/22 14:30 09/28/22 14:00 09/28/22 13:57 09/28/22 13:57 09/28/22 13:30 09/28/22 13:13 Nasal Cannula 2 09/28/22 13:15 09/28/22 12:55 Nasal Cannula 2 09/28/22 12:13 Nasal Cannula 09/28/22 11:57 Nasal Cannula 2 09/28/22 11:57 Nasal Cannula 2 09/28/22 11:57 Nasal Cannula 2 Diagnostic Findings Abdomen/Pelvis CT 09/28/22 12:13 CT abd pelvis wo con CLINICAL HISTORY: R sided flank/lower chest wall pain; h/o stone TECHNIQUE: Helical axial images of the abdomen and pelvis were obtained. Automated dose lowering techniques and/or adjustment according to patient size were utilized for this exam. This exam was performed without intravenous contrast. CT DOSE: 1112.06 mGy.cm COMPARISON: Comparison is made to CT abdomen pelvis 04/01/2022 FINDINGS: Lower chest: Possible thickening is seen. Right lower lung atelectasis is seen. Liver: Unremarkable. No focal lesions are seen. Gallbladder and biliary tree: No calcified gallstones. Normal caliber wall. No intra- or extrahepatic biliary ductal dilation. Pancreas: Unremarkable, no focal lesions. Spleen: Unremarkable. Adrenals: Unremarkable. Kidneys and ureters: Nonobstructive nephrolithiasis is seen. Bladder: Unremarkable. Reproductive organs: Patient is status post hysterectomy. Bowel: Diverticulosis is seen without evidence of diverticulitis. Patient is status post appendectomy. Lymph nodes Retroperitoneal: There is a 12 mm left para-aortic lymph node which is unchanged from prior exam. Pelvic: Unremarkable. Mesenteric: Unremarkable. Peritoneum: Normal. Vessels: Atherosclerotic calcifications are seen. Abdominal wall: A fat-containing umbilical hernia is seen. Bones: Degenerative changes in the visualized spine. Left hip arthroplasty is seen with chronic deformities. IMPRESSION: 1. No acute abnormalities are seen in the abdomen. In particular, no obstructive stone in this patient with right sided abdominal pain. 2. Diverticulosis without diverticulitis 3. Previously noted cystic lesion in the distal pancreatic body is no longer seen. ACT 112: Negative or not required by law. Electronically signed by: Sherman Coats M.D. 09/28/2022 2:38 PM Chest X-Ray 09/28/22 12:13 SINGLE VIEW CHEST CLINICAL HISTORY: Atypical chest pain. FINDINGS: An AP, portable, upright chest radiograph is compared to study dated 04/01/2022. Correlation is made with chest CT dated 01/21/2022. The heart is mildly enlarged noting atherosclerotic calcification of the thoracic aorta. The pulmonary vasculature is noncongested. Chronic interstitial thickening is similar to previous. The lungs and pleural spaces are clear. No pneumothorax is seen. The skeletal structures are osteopenic. The bony thorax is grossly intact. IMPRESSION: No active disease in the chest. ACT 112: Negative or not required by law. Electronically signed by: Horacio Motta M.D. 09/28/2022 1:03 PM Medications Administered Medication List Discontinued Medications Fentanyl Citrate (Fentanyl Citrate Pf 100 Mcg/2 Ml Vial) 25 mcg IV NOW STA Stop: 09/28/22 12:15 Last Admin: 09/28/22 12:31 Dose: 25 mcg Documented By: BINU Hydralazine HCl (Hydralazine Hcl 20 Mg/Ml Vial) 10 mg IV NOW STA Stop: 09/28/22 16:13 Last Admin: 09/28/22 16:36 Dose: 10 mg Documented By: LILLI Cefepime HCl (Maxipime) 2,000 mg in 20 mls @ 5 mls/min IV NOW STA; Protocol Stop: 09/28/22 15:43 Last Admin: 09/28/22 16:17 Dose: 5 mls/min Documented By: DARYL Morphine Sulfate (Morphine Sulfate 4 Mg/Ml 1 Ml Carp\Vial) 4 mg IV NOW STA Stop: 09/28/22 15:41 Last Admin: 09/28/22 16:10 Dose: 4 mg Documented By: DARYL ECG Rate (beats per minute): 54 Additional Comments: sinus bradycardia, QTC 440ms COVID-19 Results Results COVID-19 Adm Lab Results: RBC 3.98 M/uL (4.20-5.40) L 09/28/22 WBC 7.40 K/ul (4.8-10.8) 09/28/22 Hgb 11.3 g/dl (12.0-16.0) L 09/28/22 Hct 35.4 % (37.0-47.0) L 09/28/22 Plt Count 222 K/uL (130-400) 09/28/22 Neutrophils (%) (Auto) 70.9 % 09/28/22 Lymphocytes (%) (Auto) 15.9 % 09/28/22 Monocytes # (Auto) 0.53 K/uL (0.11-0.59) 09/28/22 Eosinophils # (Auto) 0.39 K/uL (0-0.50) 09/28/22 Immature Granulocyte % (Auto) 0.4 % 09/28/22 Neutrophils # (Auto) 5.25 K/uL (1.40-6.50) 09/28/22 Lymphocytes # (Auto) 1.18 K/uL (1.2-3.4) L 09/28/22 Monocytes # (Auto) 0.53 K/uL (0.11-0.59) 09/28/22 Eosinophils # (Auto) 0.39 K/uL (0-0.50) 09/28/22 Basophils # (Auto) 0.02 K/uL (0-0.2) 09/28/22 Immature Granulocyte # (Auto) 0.03 K/uL (0.01-0.20) 3 Na 138 mmol/L (136-145) 09/28/22 K 4.9 mmol/L (3.5-5.1) 09/28/22 Cl 100 mmol/L (98-107) 09/28/22 CO2 32 mmol/L (21-32) 09/28/22 Anion Gap 6 (3-11) 09/28/22 BUN 28 mg/dl (6-23) H 09/28/22 Creatinine 1.80 mg/dl (0.6-1.2) H 09/28/22 BUN/Creatinine Ratio 15.6 (10-20) 09/28/22 Glucose Level 121 mg/dl (70-99(Fasting)) H 09/28/22 Ca 10.8 mg/dl (8.6-10.3) H 09/28/22 Total Bilirubin 0.4 mg/dl (0.2-1.0) 09/28/22 AST/SGOT 13 U/L (13-39) 09/28/22 ALT/SGPT 8 U/L (7-52) 09/28/22 Alkaline Phosphatase 67 U/L (34-104) 09/28/22 Total Protein 7.9 gm/dl (6.0-8.3) 09/28/22 Albumin 4.4 gm/dl (3.4-5.0) 09/28/22 Globulin 3.5 gm/dl (2.5-4.0) 09/28/22 Albumin/Globulin Ratio 1.3 (0.9-2) 09/28/22 PTT 26.0 Seconds (21.0-31.0) 09/28/22 INR 1.0 (0.9-1.1) 09/28/22 SARS-CoV-2, RNA, NAAT NEGATIVE (NEGATIVE) 09/28/22 Chest X-Ray 09/28/22 Code Status & VTE Plan Code Status DNR/DNI VTE Prophylaxis Plan VTE Prophylaxis will be ordered: Yes Supervising Physician Co-Signing Physician Notes Patient seen and examined independently. Discussed with above provider. Patient is a 69-year-old female with past medical history of chronic hypoxic respiratory failure at 3 L of oxygen at baseline, resistant hypertension, hyperlipidemia presents with a right upper quadrant abdominal/flank pain. CT abdomen/pelvis done; no acute finding. BUN/creatinine elevated consistent with CKD Calcium mildly elevated. High sensitive troponin elevated with no delta difference. Assessment/plan; Hypertensive urgency: Chart review reveals significant hypertension in the past. On multiple medications. Continue hydralazine, Coreg and clonidine. Might need up titration of clonidine or an addition of diuretic if the blood pressure continues to be high. Right upper quadrant abdominal painreports abdominal pain. No tenderness on examination. CT abdomen/pelvis reassuring. Likely MSK. Continue pain control. Can consider CT chest if the pain continues to be present. UTIstarted on cefepime based on past sensitivities.
[2022-09-28] MEDS ORDERED: oxyCODONE HCL IR 5 MG TAB (IMMEDIATE RELEASE) PO STA (17:47)
[2022-09-28] MEDS ORDERED: ALBUTEROL HFA 8 GM INHALER INH PRN (18:59)
[2022-09-28] MEDS ORDERED: hydrALAZINE HCL 20 MG/ML VIAL IV PRN (18:59)
[2022-09-28] MEDS: ALPRAZolam 0.5 MG TABLET PO PRN (19:22)
[2022-09-28] MEDS: oxyCODONE HCL IR 5 MG TAB (IMMEDIATE RELEASE) PO SCH (20:19)
[2022-09-28] MEDS: cloNIDine HCL 0.1 MG TAB PO SCH (20:19)
[2022-09-28] MEDS: hydrALAZINE TAB 50 MG TAB PO SCH (20:32)
[2022-09-28] MEDS: FLUTICASONE PROPIONATE NA SPR 16 GM BTL SCH (20:32)
[2022-09-28] MEDS: PANTOprazole 40 MG TAB PO SCH (20:33)
[2022-09-28] MEDS: carvediloL 25 MG TAB PO SCH (20:33)
[2022-09-28] MEDS: TAMSULOSIN HCL 0.4 MG CAP PO SCH (20:33)
[2022-09-28] MEDS: HEPARIN SOD 5,000 UNIT/0.5 ML VIAL SQ SCH (20:34)
[2022-09-29] MEDS: CEFEPIME 1,000 MG in SYRINGE 0 ML IV SCH ×2 (03:38→16:23)
[2022-09-29] MEDS: HEPARIN SOD 5,000 UNIT/0.5 ML VIAL SQ SCH ×3 (05:40→21:06)
[2022-09-29 06:44] LABS: Basophils # (auto) 0.02 K/uL (0-0.2); Basophils % (auto) 0.4 %; Eosinophils # (auto) 0.38 K/uL (0-0.50); Eosinophils % (auto) 7.2 %; Hematocrit (blood only) 27.2 % (37.0-47.0); Hemoglobin 8.9 g/dl (12.0-16.0); Immature Granulocytes # (auto) 0.02 K/uL (0.01-0.20); Immature Granulocytes % (auto) 0.4 %; Lymphocytes % (auto) 24.7 %; Mean Corpuscular Hemoglobin 29.6 pg (25.0-34.0); Mean Corpuscular Hgb Conc 32.7 g/dL (32.0-36.0); Mean Corpuscular Volume 90.4 fL (80.0-100.0); Mean Platelet Volume 9.6 fL (9.4-12.4); Monocytes % (auto) 9.5 %; Neutrophils # (auto) 3.05 K/uL (1.40-6.50); Neutrophils % (auto) 57.8 %; Platelet Count 184 K/uL (130-400); RDW Coefficient of Variation 14.1 % (11.5-14.5); RDW Standard Deviation 45.8 fL (36.4-46.3); Red Blood Count 3.01 M/uL (4.20-5.40); White Blood Count 5.27 K/ul (4.8-10.8)
[2022-09-29 07:15] LABS: Albumin Globulin Ratio 1.3 (0.9-2); Albumin Level 3.5 gm/dl (3.4-5.0); BUN Creatinine Ratio 14.6 (10-20); Bilirubin,Total 0.5 mg/dl (0.2-1.0); Calcium 9.7 mg/dl (8.6-10.3); Creatinine Clr Calc Pharmacy 20.3 ml/min; Est GFR (African American) 26.1 ml/min; Est GFR (Non-African American) 22.5 ml/min; Globulin 2.7 gm/dl (2.5-4.0); Magnesium 1.7 mg/dl (1.7-2.4); Potassium 4.8 mmol/L (3.5-5.1); Total Protein 6.2 gm/dl (6.0-8.3)
[2022-09-29 07:40] LABS: Estimated Average Glucose 117 mg/dl; Hemoglobin A1C 5.7 % (4.5-5.6)
[2022-09-29] MEDS: cloNIDine HCL 0.1 MG TAB PO SCH ×2 (07:51→20:57)
[2022-09-29] MEDS: ALPRAZolam 0.5 MG TABLET PO PRN (07:51)
[2022-09-29] MEDS: ESCITALOPRAM OXALATE 10 MG TAB PO SCH (07:51)
[2022-09-29] MEDS: carvediloL 25 MG TAB PO SCH ×2 (07:52→21:01)
[2022-09-29] MEDS: PANTOprazole 40 MG TAB PO SCH ×2 (07:52→21:04)
[2022-09-29] MEDS: MULTIVITAMIN TAB PO SCH (07:52)
[2022-09-29] MEDS: ASPIRIN 81 MG ECTAB PO SCH (07:52)
[2022-09-29] MEDS: FERROUS SULFATE 325 MG TAB PO SCH (07:53)
[2022-09-29] MEDS: UMECLIDINIUM/VILANTEROL 62.5/25MCG 7 PUFFS/INHALER INH SCH (07:53)
[2022-09-29] MEDS: hydrALAZINE TAB 50 MG TAB PO SCH ×2 (07:53→21:02)
[2022-09-29] MEDS: LORATADINE 10 MG TAB PO SCH (07:53)
[2022-09-29] MEDS: oxyCODONE HCL IR 5 MG TAB (IMMEDIATE RELEASE) PO SCH ×2 (07:54→20:57)
[2022-09-29] MEDS: FLUTICASONE FUROATE 100MCG 14 PUFFS/INHALER INH SCH (07:54)
[2022-09-29] MEDS: FLUTICASONE PROPIONATE NA SPR 16 GM BTL SCH ×2 (07:55→21:03)
[2022-09-29] MEDS: ONDANSETRON INJ 2 MG/ML 2 ML VIAL IV PRN (08:18)
--- NOTE | 2022-09-29 12:24 | Electrocardiogram Report ---
Test Reason : Blood Pressure : / mmHG Vent. Rate : 060 BPM Atrial Rate : 060 BPM P-R Int : 168 ms QRS Dur : 086 ms QT Int : 442 ms P-R-T Axes : 008 050 092 degrees QTc Int : 442 ms Normal sinus rhythm Nonspecific ST abnormality Abnormal ECG When compared with ECG of 01-APR-2022 19:37, No significant change was found Confirmed by Rajeev Seaman ([id number]) on 09/29/2022 12:23:45 PM Referred By: REFERRED SELF Confirmed By:Ap Seaman
[2022-09-29] MEDS: DOCUSATE SODIUM/SENNA 50/8.6MG TAB PO SCH (13:33)
[2022-09-29] MEDS: CALCIUM CARBONATE 500 MG CHEWABLE TAB PO PRN (13:33)
--- NOTE | 2022-09-29 17:45 | Hospitalist Progress Note ---
Date of Service September 29, 2022 Assessment & Plan (1) UTI (urinary tract infection): (2) Hypertensive urgency: (3) CKD (chronic kidney disease): (4) COPD (chronic obstructive pulmonary disease): (5) Chronic respiratory failure: Plan 69-year-old female who has significant past medical history of chronic hypoxic respiratory failure on 2-3 L of oxygen, COPD, HTN, HLD, CKD-3, gastritis, GERD, IBS, history of E. coli UTI, depression with anxiety, history of tobacco abuse and wheelchair-bound status who presents to ED 09/28 secondary to pain under right breast x1 week. Hypertensive Urgency Elevated troponin Patient received IV hydralazine in ED without much improvement On clonidine 0.1 mg twice daily, carvedilol 25 mg twice daily and hydralazine 100 mg twice daily at home last echo 2020 EF 65%, grade II DD Updated ECHO reviewed. possibly in setting of infection, complicated uti continue home meds, prn IV hydralazine, will monitor BP closely pt w/o overt chest pain; BP fairly better. Complicated UTI hx of nephrolithiasis requiring stent placement - CT a/p w/o obs stone, GB w/o stone previous urine culture grew resistant e. coli. No CVA angle tenderness this admission. continue IV cefepime await blood/urine cultures Chronic hypoxic resp failure on 2-3L of O2 at baseline COPD w/o exac Past tobacco abuse Continue supplemental oxygen Continue home inhalers CKD-3 baseline 1.6-1.8 HLD continue statin Chronic anemia Hemoglobin stable at 11 Previously had iron panel, folate and B12 levels in March 2022 which was unremarkable Depression with anxiety Continue Xanax as needed DVT ppx: SQ Heparin DNR/DNI PCP: Abe Gleason Admission and Anticipated Discharge Date Admission Date: September 28, 2022 Subjective Patient seen and examined at bedside as a follow-up of hypertensive urgency, elevated troponin, complicated UTI. Patient was lying in bed, on room air, NAD, reports some improvement in her belly pain today, was nauseous and vomited today morning, will use Zofran as needed, denies headache or dizziness, denies diarrhea. Has poor appetite today. Has not moved bowel in few days. Physical Exam Physical Exam: GENERAL: Alert and oriented x3. NAD, on 2 L oxygen via nasal cannula. Appears ill/frail/weak HEENT: No pallor, no icterus. Pupils equal, round and reactive to light. Oral mucosa moist. NECK: No JVD, no neck masses. HEART: S1 and S2 heard. Regular rate and rhythm. No murmur, no gallop. RESPIRATORY SYSTEM: Normal AP diameter. No accessory muscle use. No wheezing, no crackles. ABDOMEN: Soft, bowel sounds present, mild abdominal tenderness, upper, no distention. CENTRAL NERVOUS SYSTEM: No facial droop. Speech is clear. Obeys simple commands. Moves extremities. EXTREMITIES: No edema, no erythema seen. No CVA angle tenderness. Results & Data Results & Data Vital Signs (Past 12 Hours) Vital Signs Temp Pulse Pulse Resp BP Pulse Ox O2 Del Method 09/29/22 14:01 59 L 09/29/22 16:08 36.7 C 62 16 151/68 H 95 Nasal Cannula 09/29/22 13:53 96 09/29/22 11:52 36.9 C 69 16 127/52 L 96 Nasal Cannula 09/29/22 07:00 58 L 09/29/22 08:00 Nasal Cannula 09/29/22 08:10 37.1 C 67 16 162/60 H 96 Nasal Cannula 09/29/22 05:40 177/61 H O2 Flow Rate 09/29/22 14:01 09/29/22 16:08 3 09/29/22 13:53 09/29/22 11:52 1.5 09/29/22 07:00 09/29/22 08:00 2 09/29/22 08:10 1.5 09/29/22 05:40
[2022-09-29] MEDS: ACETAMINOPHEN 325 MG TAB PO PRN (18:44)
[2022-09-29] MEDS: TAMSULOSIN HCL 0.4 MG CAP PO SCH (21:01)
[2022-09-30] MEDS: ACETAMINOPHEN 325 MG TAB PO PRN (03:48)
[2022-09-30] MEDS: CEFEPIME 1,000 MG in SYRINGE 0 ML IV SCH (03:48)
[2022-09-30] MEDS: ALPRAZolam 0.5 MG TABLET PO PRN ×2 (03:48→21:54)
[2022-09-30] MEDS: HEPARIN SOD 5,000 UNIT/0.5 ML VIAL SQ SCH ×3 (05:39→20:10)
[2022-09-30 07:57] LABS: Hematocrit (blood only) 27.1 % (37.0-47.0); Hemoglobin 8.8 g/dl (12.0-16.0); Mean Corpuscular Hemoglobin 29.1 pg (25.0-34.0); Mean Corpuscular Hgb Conc 32.5 g/dL (32.0-36.0); Mean Corpuscular Volume 89.7 fL (80.0-100.0); Mean Platelet Volume 9.7 fL (9.4-12.4); Platelet Count 188 K/uL (130-400); RDW Coefficient of Variation 13.7 % (11.5-14.5); RDW Standard Deviation 45.3 fL (36.4-46.3); Red Blood Count 3.02 M/uL (4.20-5.40); White Blood Count 5.83 K/ul (4.8-10.8)
[2022-09-30 08:11] LABS: BUN Creatinine Ratio 17.4 (10-20); Calcium 9.3 mg/dl (8.6-10.3); Est GFR (African American) 22.8 ml/min; Est GFR (Non-African American) 19.7 ml/min; Magnesium 1.8 mg/dl (1.7-2.4); Phosphorus 4.8 mg/dl (2.5-4.9); Potassium 4.5 mmol/L (3.5-5.1)
[2022-09-30] MEDS: LORATADINE 10 MG TAB PO SCH (09:17)
[2022-09-30] MEDS: PANTOprazole 40 MG TAB PO SCH ×2 (09:17→20:11)
[2022-09-30] MEDS: ESCITALOPRAM OXALATE 10 MG TAB PO SCH (09:17)
[2022-09-30] MEDS: FERROUS SULFATE 325 MG TAB PO SCH (09:17)
[2022-09-30] MEDS: ASPIRIN 81 MG ECTAB PO SCH (09:17)
[2022-09-30] MEDS: DOCUSATE SODIUM/SENNA 50/8.6MG TAB PO SCH (09:17)
[2022-09-30] MEDS: cloNIDine HCL 0.1 MG TAB PO SCH ×2 (09:17→20:13)
[2022-09-30] MEDS: hydrALAZINE TAB 50 MG TAB PO SCH ×2 (09:18→20:12)
[2022-09-30] MEDS: MULTIVITAMIN TAB PO SCH (09:18)
[2022-09-30] MEDS: FLUTICASONE FUROATE 100MCG 14 PUFFS/INHALER INH SCH (09:18)
[2022-09-30] MEDS: UMECLIDINIUM/VILANTEROL 62.5/25MCG 7 PUFFS/INHALER INH SCH (09:18)
[2022-09-30] MEDS: FLUTICASONE PROPIONATE NA SPR 16 GM BTL SCH ×2 (09:18→20:10)
[2022-09-30] MEDS: oxyCODONE HCL IR 5 MG TAB (IMMEDIATE RELEASE) PO SCH ×2 (09:22→20:14)
[2022-09-30] MEDS: carvediloL 25 MG TAB PO SCH ×2 (09:23→20:14)
--- NOTE | 2022-09-30 16:56 | Hospitalist Progress Note ---
Date of Service September 30, 2022 Assessment & Plan (1) UTI (urinary tract infection): (2) Hypertensive urgency: (3) CKD (chronic kidney disease): (4) COPD (chronic obstructive pulmonary disease): (5) Chronic respiratory failure: Plan 69-year-old female who has significant past medical history of chronic hypoxic respiratory failure on 2-3 L of oxygen, COPD, HTN, HLD, CKD-3, gastritis, GERD, IBS, history of E. coli UTI, depression with anxiety, history of tobacco abuse and wheelchair-bound status who presents to ED 09/28 secondary to pain under right breast x1 week. Hypertensive Urgency Elevated troponin Patient received IV hydralazine in ED without much improvement On clonidine 0.1 mg twice daily, carvedilol 25 mg twice daily and hydralazine 100 mg twice daily at home last echo 2020 EF 65%, grade II DD Updated ECHO reviewed. possibly in setting of infection, complicated uti continue home meds, prn IV hydralazine, will monitor BP closely pt w/o overt chest pain; BP fairly better. Complicated UTI hx of nephrolithiasis requiring stent placement - CT a/p w/o obs stone, GB w/o stone previous urine culture grew resistant e. coli. No CVA angle tenderness this admission. continue IV cefepime 09/29 --> UCx w/ e coli ---> rocephin from 09/30 await blood culture final result. Chronic hypoxic resp failure on 2-3L of O2 at baseline COPD w/o exac Past tobacco abuse Continue supplemental oxygen Continue home inhalers CKD-3 baseline 1.6-1.8 HLD continue statin Chronic anemia Hemoglobin stable at 11 Previously had iron panel, folate and B12 levels in March 2022 which was unremarkable Depression with anxiety Continue Xanax as needed DVT ppx: SQ Heparin DNR/DNI PCP: Abe Gleason pt/ot, cm to assist w/ dc plan. Admission and Anticipated Discharge Date Admission Date: September 28, 2022 Subjective Patient seen and examined at bedside as a follow-up of hypertensive urgency, elevated troponin, complicated UTI. Patient was sitting up in chair, on room air, NAD, reports improvement in her belly pain today, denies nausea and moving/reports eating better, denies headache or dizziness, denies diarrhea. Has not moved bowel in few days, ecouraged to try prn laxatives. Reports mid back pain, non tender on exam, will use diclofenac gel. Physical Exam Physical Exam: GENERAL: Alert and oriented x3. NAD, on 2 L oxygen via nasal cannula. Appears ill/frail/weak HEENT: No pallor, no icterus. Pupils equal, round and reactive to light. Oral mucosa moist. NECK: No JVD, no neck masses. HEART: S1 and S2 heard. Regular rate and rhythm. No murmur, no gallop. RESPIRATORY SYSTEM: Normal AP diameter. No accessory muscle use. No wheezing, no crackles. ABDOMEN: Soft, bowel sounds present, mild abdominal tenderness, upper, no distention. CENTRAL NERVOUS SYSTEM: No facial droop. Speech is clear. Obeys simple commands. Moves extremities. EXTREMITIES: No edema, no erythema seen. No CVA angle tenderness. Results & Data Results & Data Vital Signs (Past 12 Hours) Vital Signs Temp Pulse Pulse Resp BP Pulse Ox O2 Del Method 09/30/22 16:14 52 L 09/30/22 15:12 36.8 C 54 L 20 147/57 H 97 Nasal Cannula 09/30/22 12:00 53 L 09/30/22 10:55 36.6 C 46 L 20 105/49 L 93 Room Air 09/30/22 09:34 Nasal Cannula 09/30/22 08:14 36.3 C L 56 L 20 145/67 H 96 Nasal Cannula 09/30/22 07:53 43 L O2 Flow Rate 09/30/22 16:14 09/30/22 15:12 3 09/30/22 12:00 09/30/22 10:55 09/30/22 09:34 2 09/30/22 08:14 3 09/30/22 07:53
--- NOTE | 2022-09-30 17:57 | Electrocardiogram Report ---
Test Reason : Blood Pressure : / mmHG Vent. Rate : 052 BPM Atrial Rate : 052 BPM P-R Int : 162 ms QRS Dur : 088 ms QT Int : 474 ms P-R-T Axes : -02 074 081 degrees QTc Int : 440 ms Sinus bradycardia Abnormal ECG When compared with ECG of 01-APR-2022 19:37, T wave amplitude has increased in Anterior leads Confirmed by Rajeev Seaman ([id number]) on 09/30/2022 5:57:10 PM Referred By: REFERRED SELF Confirmed By:Ap Seaman
[2022-09-30] MEDS: cefTRIAXone SODIUM 1,000 MG in DEXTROSE 5% 50 ML IV SCH (18:16)
[2022-09-30] MEDS: TAMSULOSIN HCL 0.4 MG CAP PO SCH (20:11)
[2022-09-30] MEDS: DICLOFENAC SOD 1% GEL 100 GM TUBE EXT PRN (21:40)
[2022-10-01] MEDS: HEPARIN SOD 5,000 UNIT/0.5 ML VIAL SQ SCH ×3 (05:24→20:03)
[2022-10-01] MEDS: oxyCODONE HCL IR 5 MG TAB (IMMEDIATE RELEASE) PO SCH ×2 (07:42→20:00)
[2022-10-01] MEDS: cloNIDine HCL 0.1 MG TAB PO SCH ×2 (07:43→20:00)
[2022-10-01] MEDS: PANTOprazole 40 MG TAB PO SCH ×2 (07:43→20:00)
[2022-10-01] MEDS: hydrALAZINE TAB 50 MG TAB PO SCH ×2 (07:43→20:03)
[2022-10-01] MEDS: FLUTICASONE PROPIONATE NA SPR 16 GM BTL SCH ×2 (07:44→20:00)
[2022-10-01] MEDS: ASPIRIN 81 MG ECTAB PO SCH (07:44)
[2022-10-01] MEDS: FERROUS SULFATE 325 MG TAB PO SCH (07:44)
[2022-10-01] MEDS: LORATADINE 10 MG TAB PO SCH (07:44)
[2022-10-01] MEDS: ESCITALOPRAM OXALATE 10 MG TAB PO SCH (07:44)
[2022-10-01] MEDS: MULTIVITAMIN TAB PO SCH (07:44)
[2022-10-01] MEDS: DOCUSATE SODIUM/SENNA 50/8.6MG TAB PO SCH (07:44)
[2022-10-01] MEDS: carvediloL 25 MG TAB PO SCH ×2 (07:45→19:58)
[2022-10-01] MEDS: FLUTICASONE FUROATE 100MCG 14 PUFFS/INHALER INH SCH (07:45)
[2022-10-01] MEDS: UMECLIDINIUM/VILANTEROL 62.5/25MCG 7 PUFFS/INHALER INH SCH (07:45)
[2022-10-01 09:07] LABS: Phosphorus 3.7 mg/dl (2.5-4.9)
[2022-10-01 09:08] LABS: BUN Creatinine Ratio 17.5 (10-20); Calcium 9.7 mg/dl (8.6-10.3); Creatinine Clr Calc Pharmacy 18.2 ml/min; Est GFR (African American) 22.9 ml/min; Est GFR (Non-African American) 19.8 ml/min; Magnesium 1.7 mg/dl (1.7-2.4); Potassium 4.8 mmol/L (3.5-5.1)
--- NOTE | 2022-10-01 10:12 | CT Scan Report ---
HEAD CT NONCONTRAST CT DOSE: 944.79 mGy.cm HISTORY: r/o stroke; upper extremities weak/numb. TECHNIQUE: Multiaxial CT images of the head were performed without the use of intravenous contrast. A utomated exposure control was utilized for this study. A dose lowering technique was utilized adheri ng to the principles of ALARA. Comparison: Head CT 12/21/2021. Findings: The paranasal sinuses and mastoid air cells are clear. The calvarium and skull base are int act. There is no mass, hematoma, midline shift, acute infarct. White matter hypodensity is nonspecifi c but suggestive of microvascular ischemic change. The ventricles and sulci demonstrate mild age-rela mary involutional changes. Impression: No acute intracranial abnormality. Atrophy and microvascular ischemic changes. ACT 112: Negative or not required by law. Electronically signed by: Randy Waldorn M.D. 10/01/2022 10:11 AM
--- NOTE | 2022-10-01 10:15 | CT Scan Report ---
CERVICAL SPINE CT CT DOSE: HISTORY: upper extremities weak/numb. TECHNIQUE: Multiaxial CT images of the cervical spine were performed and reformatted in the sagittal and coronal plane without the use of contrast. A dose lowering technique was utilized adhering to e principles of ALARA. COMPARISON: Cervical spine CT 12/21/2021. FINDINGS: No fractures. Prevertebral soft tissues and the C1-C2 interval are intact. No pneumothorax. [id number] facet degenerative changes most pronounced on the right. There are severe disc spac e narrowing at C5-C6 and C6-C7. Moderate disc space narrowing at C7-T1 with 2 mm of anterolisthesis. This remains unchanged. Mild disc space narrowing at C4-C5. IMPRESSION: No fractures within the cervical spine. Stable degenerative changes as described above. ACT 112: Negative or not required by law. Electronically signed by: Randy Waldron M.D. 10/01/2022 10:14 AM
[2022-10-01] MEDS: cefTRIAXone SODIUM 1,000 MG in DEXTROSE 5% 50 ML IV SCH (16:22)
[2022-10-01] MEDS: ACETAMINOPHEN 325 MG TAB PO PRN ×2 (16:23→21:13)
--- NOTE | 2022-10-01 17:44 | Hospitalist Progress Note ---
Date of Service October 01, 2022 Assessment & Plan (1) UTI (urinary tract infection): (2) Hypertensive urgency: (3) CKD (chronic kidney disease): (4) COPD (chronic obstructive pulmonary disease): (5) Chronic respiratory failure: Plan 69-year-old female who has significant past medical history of chronic hypoxic respiratory failure on 2-3 L of oxygen, COPD, HTN, HLD, CKD-3, gastritis, GERD, IBS, history of E. coli UTI, depression with anxiety, history of tobacco abuse and wheelchair-bound status who presents to ED 09/28 secondary to pain under right breast x1 week. Hypertensive Urgency Elevated troponin Patient received IV hydralazine in ED without much improvement On clonidine 0.1 mg twice daily, carvedilol 25 mg twice daily and hydralazine 100 mg twice daily at home last echo 2020 EF 65%, grade II DD Updated ECHO reviewed. possibly in setting of infection, complicated uti continue home meds, prn IV hydralazine, will monitor BP closely. Will add amlod. pt w/o overt chest pain. Complicated UTI hx of nephrolithiasis requiring stent placement - CT a/p w/o obs stone, GB w/o stone previous urine culture grew resistant e. coli. No CVA angle tenderness this admission. continue IV cefepime 09/29 --> UCx w/ e coli ---> rocephin from 09/30 await blood culture final result. Chronic hypoxic resp failure on 2-3L of O2 at baseline COPD w/o exac Past tobacco abuse Continue supplemental oxygen Continue home inhalers CKD-3 baseline 1.6-1.8 HLD continue statin Chronic anemia Hemoglobin stable at 11 Previously had iron panel, folate and B12 levels in March 2022 which was unremarkable Depression with anxiety Continue Xanax as needed DVT ppx: SQ Heparin DNR/DNI PCP: Abe Gleason pt/ot, cm to assist w/ dc plan. likely will need placement Admission and Anticipated Discharge Date Admission Date: September 28, 2022 Subjective Patient seen and examined at bedside as a follow-up of hypertensive urgency, elevated troponin, complicated UTI. Patient was sitting up in chair, on room air, NAD, reports improvement in her belly pain today, denies nausea and moving/reports eating better, denies headache or dizziness, denies diarrhea. Reports mid back pain, non tender on exam, will use diclofenac gel. Per RN , BUE weakness. Pt states its been there since yesterday. Exam revealed bue equal and normal strength. pt denied any visual changes. CT of H and C spine was done w/ no new acute findings. closely monitor. Physical Exam Physical Exam: GENERAL: Alert and oriented x3. NAD, on 2 L oxygen via nasal cannula. Appears ill/frail/weak HEENT: No pallor, no icterus. Pupils equal, round and reactive to light. Oral mucosa moist. NECK: No JVD, no neck masses. HEART: S1 and S2 heard. Regular rate and rhythm. No murmur, no gallop. RESPIRATORY SYSTEM: Normal AP diameter. No accessory muscle use. No wheezing, no crackles. ABDOMEN: Soft, bowel sounds present, mild abdominal tenderness, upper, no distention. CENTRAL NERVOUS SYSTEM: No facial droop. Speech is clear. Obeys simple commands. Moves extremities. EXTREMITIES: No edema, no erythema seen. No CVA angle tenderness. Results & Data Results & Data Vital Signs (Past 12 Hours) Vital Signs Temp Pulse Pulse Resp BP Pulse Ox O2 Del Method 10/01/22 15:00 36.8 C 60 18 188/62 H 98 Nasal Cannula 10/01/22 15:22 52 L 10/01/22 13:08 Nasal Cannula 10/01/22 11:57 36.6 C 73 19 165/64 H 94 Nasal Cannula 10/01/22 08:00 Nasal Cannula 10/01/22 07:20 36.7 C 56 L 20 163/70 H 97 Nasal Cannula 10/01/22 07:02 53 L O2 Flow Rate 10/01/22 15:00 3 10/01/22 15:22 10/01/22 13:08 10/01/22 11:57 2 10/01/22 08:00 10/01/22 07:20 2 10/01/22 07:02
[2022-10-01] MEDS: hydrOXYzine HCl 10 MG TAB PO PRN (20:00)
[2022-10-01] MEDS: TAMSULOSIN HCL 0.4 MG CAP PO SCH (20:00)
[2022-10-02] MEDS: ACETAMINOPHEN 325 MG TAB PO PRN (02:51)
[2022-10-02] MEDS: DICLOFENAC SOD 1% GEL 100 GM TUBE EXT PRN (02:52)
[2022-10-02] MEDS: POLYETHYLENE (MIRALAX) 17 GM PACK PO PRN (05:04)
[2022-10-02] MEDS: HEPARIN SOD 5,000 UNIT/0.5 ML VIAL SQ SCH ×3 (05:05→19:47)
[2022-10-02] MEDS: LORATADINE 10 MG TAB PO SCH (07:35)
[2022-10-02] MEDS: DOCUSATE SODIUM/SENNA 50/8.6MG TAB PO SCH (07:35)
[2022-10-02] MEDS: ESCITALOPRAM OXALATE 10 MG TAB PO SCH (07:35)
[2022-10-02] MEDS: hydrOXYzine HCl 10 MG TAB PO PRN (07:35)
[2022-10-02] MEDS: ASPIRIN 81 MG ECTAB PO SCH (07:35)
[2022-10-02] MEDS: FERROUS SULFATE 325 MG TAB PO SCH (07:35)
[2022-10-02] MEDS: MULTIVITAMIN TAB PO SCH (07:36)
[2022-10-02] MEDS: amLODIPine BESYLATE 5 MG TAB PO SCH (07:36)
[2022-10-02] MEDS: cloNIDine HCL 0.1 MG TAB PO SCH ×2 (07:36→19:46)
[2022-10-02] MEDS: PANTOprazole 40 MG TAB PO SCH ×2 (07:36→19:53)
[2022-10-02] MEDS: FLUTICASONE PROPIONATE NA SPR 16 GM BTL SCH ×2 (07:37→19:47)
[2022-10-02] MEDS: FLUTICASONE FUROATE 100MCG 14 PUFFS/INHALER INH SCH (07:37)
[2022-10-02] MEDS: hydrALAZINE TAB 50 MG TAB PO SCH ×3 (07:37→19:46)
[2022-10-02] MEDS: carvediloL 25 MG TAB PO SCH (07:37)
[2022-10-02] MEDS: UMECLIDINIUM/VILANTEROL 62.5/25MCG 7 PUFFS/INHALER INH SCH (07:37)
[2022-10-02] MEDS: oxyCODONE HCL IR 5 MG TAB (IMMEDIATE RELEASE) PO SCH ×2 (07:39→19:52)
[2022-10-02] MEDS ORDERED: cloNIDine HCL 0.1 MG TAB PO ONE (08:51)
[2022-10-02] MEDS ORDERED: LOSARTAN POTASSIUM 50 MG TAB PO SCH (09:00)
[2022-10-02 09:07] LABS: Hematocrit (blood only) 30.6 % (37.0-47.0); Hemoglobin 9.9 g/dl (12.0-16.0); Mean Corpuscular Hemoglobin 28.9 pg (25.0-34.0); Mean Corpuscular Hgb Conc 32.4 g/dL (32.0-36.0); Mean Corpuscular Volume 89.5 fL (80.0-100.0); Mean Platelet Volume 10.2 fL (9.4-12.4); Platelet Count 192 K/uL (130-400); RDW Coefficient of Variation 13.6 % (11.5-14.5); RDW Standard Deviation 44.3 fL (36.4-46.3); Red Blood Count 3.42 M/uL (4.20-5.40); White Blood Count 5.46 K/ul (4.8-10.8)
[2022-10-02 09:26] LABS: BUN Creatinine Ratio 19.5 (10-20); Calcium 10.6 mg/dl (8.6-10.3); Creatinine Clr Calc Pharmacy 21.5 ml/min; Est GFR (African American) 28.8 ml/min; Est GFR (Non-African American) 24.8 ml/min; Magnesium 1.7 mg/dl (1.7-2.4); Potassium 4.9 mmol/L (3.5-5.1)
[2022-10-02] MEDS: carvediloL 12.5 MG TAB PO SCH ×2 (11:28→19:46)
[2022-10-02] MEDS ORDERED: LACTULOSE SYRUP 20 GM/30 ML UDC PO ONE (14:37)
--- NOTE | 2022-10-02 15:05 | Hospitalist Progress Note ---
Date of Service October 02, 2022 Assessment & Plan (1) UTI (urinary tract infection): (2) Hypertensive urgency: (3) CKD (chronic kidney disease): (4) COPD (chronic obstructive pulmonary disease): (5) Chronic respiratory failure: Plan 69-year-old female who has significant past medical history of chronic hypoxic respiratory failure on 2-3 L of oxygen, COPD, HTN, HLD, CKD-3, gastritis, GERD, IBS, history of E. coli UTI, depression with anxiety, history of tobacco abuse and wheelchair-bound status who presents to ED 09/28 secondary to pain under right breast x1 week. Hypertensive Urgency Elevated troponin Patient received IV hydralazine in ED without much improvement On clonidine 0.1 mg twice daily, carvedilol 25 mg twice daily and hydralazine 100 mg twice daily at home last echo 2020 EF 65%, grade II DD Updated ECHO reviewed. possibly in setting of infection, complicated uti Monitor BP closely. Pt w/o overt chest pain. As of 10/02 AM, pt's BP meds in epic chart are: Clonidine 0.2 mg twice daily, Coreg 12.5 mg twice daily, hydralazine 100 mg 3 times daily, losartan 50 mg daily. Discussed with patient started 10/02, her blood pressure medication she states patient is on are: Coreg 25 mg twice daily, clonidine 0.1 mg twice daily, hydralazine 100 mg twice daily. No losartan. Since the blood blood pressure is fairly high by being on the medication in the hospital that patient's daughter has stated, hydralazine is increased to 100 mg 3 times daily and amlodipine has been added and clonidine has been increased to 0.2 mg twice daily. Will keep coreg at 12.5 mg BID as HR is borderline to low normal. Complicated UTI hx of nephrolithiasis requiring stent placement - CT a/p w/o obs stone, GB w/o stone previous urine culture grew resistant e. coli. No CVA angle tenderness this admission. continue IV cefepime 09/29 --> UCx w/ e coli ---> rocephin from 09/30 await blood culture final result. Chronic hypoxic resp failure on 2-3L of O2 at baseline COPD w/o exac Past tobacco abuse Continue supplemental oxygen Continue home inhalers CKD-3 baseline 1.6-1.8 HLD continue statin Chronic anemia Hemoglobin stable at 11 Previously had iron panel, folate and B12 levels in March 2022 which was unremarkable Depression with anxiety Continue Xanax as needed DVT ppx: SQ Heparin DNR/DNI PCP: Abe Gleason pt/ot, cm to assist w/ dc plan. likely will need placement, [facility] referral has been made per CM. Admission and Anticipated Discharge Date Admission Date: September 28, 2022 Subjective Patient seen and examined at bedside as a follow-up of hypertensive urgency, elevated troponin, complicated UTI. Patient was sitting up in chair, on 2L NC O2, NAD, reports no belly pain today, denies nausea and moving/reports eating better, denies headache or dizziness, denies diarrhea. Reports improving mid back pain w/ voltaren gel, non tender on exam. Per RN, pt eating better, hasn't moved bowel in few days, increased bowel regimen today. Per RN, pt is improving w/ activity. Spoke w/ pt's dtr at bedside, they will not have support at home due to multiple things going on at home and pt being weak, they want her to be placed. d/w CM who will make referral. Physical Exam Physical Exam: GENERAL: Alert and oriented x3. NAD, on 2 L oxygen via nasal cannula. Appears ill/frail/weak HEENT: No pallor, no icterus. Pupils equal, round and reactive to light. Oral mucosa moist. NECK: No JVD, no neck masses. HEART: S1 and S2 heard. Regular rate and rhythm. No murmur, no gallop. RESPIRATORY SYSTEM: Normal AP diameter. No accessory muscle use. No wheezing, no crackles. ABDOMEN: Soft, bowel sounds present, mild abdominal tenderness, upper, no distention. CENTRAL NERVOUS SYSTEM: No facial droop. Speech is clear. Obeys simple commands. Moves extremities. EXTREMITIES: No edema, no erythema seen. No CVA angle tenderness. Results & Data Results & Data Vital Signs (Past 12 Hours) Vital Signs Temp Pulse Pulse Resp BP Pulse Ox O2 Del Method 10/02/22 11:57 36.7 C 55 L 18 155/70 H 96 Room Air 10/02/22 07:00 36.6 C 58 L 18 182/49 H 97 Room Air 10/02/22 07:44 Nasal Cannula 10/02/22 07:03 49 L O2 Flow Rate 10/02/22 11:57 10/02/22 07:00 10/02/22 07:44 2 10/02/22 07:03
[2022-10-02] MEDS: cefTRIAXone SODIUM 1,000 MG in DEXTROSE 5% 50 ML IV SCH (16:35)
[2022-10-02] MEDS: TAMSULOSIN HCL 0.4 MG CAP PO SCH (19:45)
[2022-10-02] MEDS: ONDANSETRON INJ 2 MG/ML 2 ML VIAL IV PRN (19:52)
[2022-10-02] MEDS: ALPRAZolam 0.5 MG TABLET PO PRN (22:53)
[2022-10-03] MEDS: HEPARIN SOD 5,000 UNIT/0.5 ML VIAL SQ SCH ×2 (05:47→13:41)
[2022-10-03] MEDS: carvediloL 12.5 MG TAB PO SCH (06:49)
[2022-10-03] MEDS ORDERED: LOSARTAN POTASSIUM 25 MG TAB PO SCH (09:00)
[2022-10-03] MEDS: ESCITALOPRAM OXALATE 10 MG TAB PO SCH (09:15)
[2022-10-03] MEDS: CALCIUM CARBONATE 500 MG CHEWABLE TAB PO PRN (09:17)
[2022-10-03] MEDS: oxyCODONE HCL IR 5 MG TAB (IMMEDIATE RELEASE) PO SCH (09:17)
[2022-10-03] MEDS: cloNIDine HCL 0.1 MG TAB PO SCH (09:17)
[2022-10-03] MEDS: DOCUSATE SODIUM/SENNA 50/8.6MG TAB PO SCH (09:17)
[2022-10-03] MEDS: POLYETHYLENE (MIRALAX) 17 GM PACK PO PRN (09:18)
[2022-10-03] MEDS: hydrOXYzine HCl 10 MG TAB PO PRN (09:18)
[2022-10-03] MEDS: ASPIRIN 81 MG ECTAB PO SCH (09:19)
[2022-10-03] MEDS: LORATADINE 10 MG TAB PO SCH (09:19)
[2022-10-03] MEDS: MULTIVITAMIN TAB PO SCH (09:19)
[2022-10-03] MEDS: FERROUS SULFATE 325 MG TAB PO SCH (09:20)
[2022-10-03] MEDS: amLODIPine BESYLATE 5 MG TAB PO SCH (09:20)
[2022-10-03] MEDS: hydrALAZINE TAB 50 MG TAB PO SCH (09:21)
[2022-10-03] MEDS: FLUTICASONE PROPIONATE NA SPR 16 GM BTL SCH (09:21)
[2022-10-03] MEDS: PANTOprazole 40 MG TAB PO SCH (09:21)
[2022-10-03] MEDS: FLUTICASONE FUROATE 100MCG 14 PUFFS/INHALER INH SCH (09:22)
[2022-10-03] MEDS: UMECLIDINIUM/VILANTEROL 62.5/25MCG 7 PUFFS/INHALER INH SCH (09:22)
[2022-10-03] MEDS ORDERED: SOD PHOSPHATE/SOD BIPHOSPHATE ENEMA 132 ML BTL PR STA (11:33)
[2022-10-03] MEDS ORDERED: LACTULOSE SYRUP 20 GM/30 ML UDC PO ONE (12:28)
--- NOTE | 2022-10-03 14:30 | Discharge Summary ---
Date of Service October 03, 2022 Admission HPI Per Admitting Provider This is a 69-year-old female who has significant past medical history of chronic hypoxic respiratory failure on 2-3 L of oxygen, COPD, HTN, HLD, CKD-3, gastritis, GERD, IBS, history of E. coli UTI, depression with anxiety, history of tobacco abuse and wheelchair-bound status who presents to ED secondary to pain under right breast x1 week. She lives at home with her daughter. She is mostly wheelchair-bound due to previous hip fracture but is able to transfer with assist. She presents to ED today due to pain under her right breast that is radiating to her back and has been present for the past week. Pain has been off and on but more persistent the past 2 days. She also complains of dysuria, increased urgency or frequency with UTI and does have history of urinary tract infection. She states her daughter manages her medications at home and took her blood pressure this morning and it was in the 220s. When she took it manually it was 160. She took all of her morning medications today. She denies any o ther recent illness. She states that she is always cold but denies any documented fever or sweats. She does occasionally feel lightheaded and off- balance. She denies any lucia substernal chest pain, diaphoresis or nausea. She states her blood pressure is always on the higher side despite multiple medications. She denies any vomiting, hematemesis, abdominal pain, melena or hematochezia. In ED patient had abnormal urinalysis. She received IV cefepime due to previously resistant E. coli urine culture. Her H&H was stable at 11.3 and 35.4. Her BUN and creatinine were 28 and 1.80. Her troponin was mildly elevated at 21. Her blood pressure was significantly elevated in ED with systolic blood pressures greater than 200s. She did receive 10 mg of IV hydralazine. Admission Exam Per Admitting Provider Constitutional: Chronically ill appearing F, obese appearing, vitals as above, NAD, appears fatigued, sitting up in bed, good bed mobility, pleasant, conversing easily Head: Normocephalic, Atraumatic Eyes: PERRL, conjunctivae normal, anicteric sclerae ENMT: external ear and nose normal, oropharynx normal dry membnraes Neck: trachea midline, no thyromegaly normal visual inspection Respiratory: normal respiratory effort, lungs clear to auscultation, no wheeze, rales, rhonchi. Normal insp/exp effort, no accessory muscle use Cardiovascular: RRR, no murmur, no edema Vessels: no JVD or carotid bruit Chest: normal inspection of chest , no pain to palpation of chest wall, +Pain to palpation under R breast in RUQ region of abd, no erythema or rash Abdomen: normal bowel sounds, soft, nontender, no hepatosplenomegaly +mild cva tenderness on right Musculoskeletal: no cyanosis or clubbing, AROM x 4, Skin: no rashes, warm and dry normal turgor Neurologic: PERRL, EOMI, accommodation nl, no face palsy, no dysarthria CN's II-XI intact bilaterally and moves all extremities Psychiatric: A+Ox3, euthymic affect Lymphatic: no cervical or axillary lymphadenopathy : deferred Principal Diagnosis Hypertensive urgency Complicated UTI Chronic hypoxic respiratory failure on 2 to 3 L of oxygen at baseline Discharge Exam GENERAL: Alert and oriented x3. NAD, on 2 L oxygen via nasal cannula. appears older than expected. HEENT: No pallor, no icterus. Pupils equal, round and reactive to light. Oral mucosa moist. NECK: No JVD, no neck masses. HEART: S1 and S2 heard. Regular rate and rhythm. No murmur, no gallop. RESPIRATORY SYSTEM: Normal AP diameter. No accessory muscle use. No wheezing, no crackles. ABDOMEN: Soft, bowel sounds present, mild abdominal tenderness, upper, no distention. CENTRAL NERVOUS SYSTEM: No facial droop. Speech is clear. Obeys simple commands. Moves extremities. EXTREMITIES: No edema, no erythema seen. No CVA angle tenderness. Discharge Data Allergies Allergy/AdvReac Type Severity Reaction Status Date / Time metronidazole [From Flagyl] Allergy Severe SHORTNESS Verified 09/28/22 15:58 OF BREATH amlodipine AdvReac Intermediate left leg Verified 09/28/22 15:58 numbness cefuroxime AdvReac Intermediate Gastrointestinal Verified 09/28/22 15:58 Upset Cephalosporins AdvReac Intermediate Gastrointestinal Verified 09/28/22 15:58 Upset ciprofloxacin AdvReac Intermediate Gastrointestinal Verified 09/28/22 15:58 Upset erythromycin base AdvReac Intermediate Gastrointestinal Verified 09/28/22 15:58 Upset sulfamethoxazole AdvReac Intermediate hyperkalemi Verified 09/28/22 15:58 [From Bactrim] a trimethoprim [From Bactrim] AdvReac Intermediate hyperkalemi Verified 09/28/22 15:58 a Consultations 09/28/22 15:40 ED Decision to Admit Stat Ordered Studies 09/28/22 12:13 CT abd pelvis wo con Stat 10/01/22 08:07 CT cervical spine wo con Urgent 10/01/22 08:08 CT head/brain wo con Urgent Hospital Course (1) UTI (urinary tract infection): (2) Hypertensive urgency: (3) CKD (chronic kidney disease): (4) COPD (chronic obstructive pulmonary disease): (5) Chronic respiratory failure: Plan 69-year-old female who has significant past medical history of chronic hypoxic respiratory failure on 2-3 L of oxygen, COPD, HTN, HLD, CKD-3, gastritis, GERD, IBS, history of E. coli UTI, depression with anxiety, history of tobacco abuse and wheelchair-bound status who presents to ED 09/28 secondary to pain under right breast x1 week. Hypertensive Urgency Elevated troponin Patient received IV hydralazine in ED without much improvement On clonidine 0.1 mg twice daily, carvedilol 25 mg twice daily and hydralazine 100 mg twice daily at home last echo 2020 EF 65%, grade II DD Updated ECHO reviewed. possibly in setting of infection, complicated uti Monitor BP closely. Pt w/o overt chest pain. As of 10/02 AM, pt's BP meds in epic chart are: Clonidine 0.2 mg twice daily, Coreg 12.5 mg twice daily, hydralazine 100 mg 3 times daily, losartan 50 mg sahil ly. Discussed with patient started 10/02, her blood pressure medication she states patient is on are: Coreg 25 mg twice daily, clonidine 0.1 mg twice daily, hydralazine 100 mg twice daily. No losartan. Since the blood blood pressure is fairly high by being on the medication in the hospital that patient's daughter has stated, hydralazine is increased to 100 mg 3 times daily and amlodipine has been added and clonidine has been increased to 0.2 mg twice daily. Will keep coreg at 12.5 mg BID as HR is borderline to low normal. this was discussed with pt's dtr. Complicated UTI hx of nephrolithiasis requiring stent placement - CT a/p w/o obs stone, GB w/o stone previous urine culture grew resistant e. coli. No CVA angle tenderness this admission. continue IV cefepime 09/29 --> UCx w/ e coli ---> rocephin from 09/30, to po atb on discharge. Chronic hypoxic resp failure on 2-3L of O2 at baseline COPD w/o exac Past tobacco abuse Continue supplemental oxygen Continue home inhalers Constipation: c/w use of laxative/stool softner as needed. CKD-3 baseline 1.6-1.8 HLD continue statin Chronic anemia Hemoglobin stable at 11 Previously had iron panel, folate and B12 levels in March 2022 which was unremarkable Depression with anxiety Continue Xanax as needed DVT ppx: SQ Heparin DNR/DNI PCP: Abe Gleason pt/ot, cm to assist w/ dc plan. likely will need placement, [facility] referral has been made per CM. Patient being discharged to SNF with following instruction at the point of discharge: Follow-up with your primary care physician within a week time and likely you will need labs CBC/CMP/magnesium/phosphorus. You will be discharged on oral antibiotic to complete the course. For your constipation likely secondary to opiate use and lack of mobility, continue to use a scheduled stool softeners/laxatives. Continue with physical therapy. Your blood pressure medications are: Hydralazine 100 mg 3 times daily, amlodipine 2.5 Mg daily (new this admission), clonidine 0.2 mg twice daily, Coreg 12.5 Mg twice daily. Take your medications as prescribed. Please make sure that you are able to get your medications today by calling your pharmacy before you leave the hospital so that your treatment continuity is not broken. Home Health Attestation I certify that this patient is under my care and that I, or a physicians teacher's assistant working with me, had a face to-face encounter that meets the home health [id number] encounter requirements with this patient. The encounter with the patient was in whole, or in part, for the following medical condition, which is the primary reason for home health care (list medical condition): I certify that, based on my findings, the following services are medically necessary home health services: My clinical findings support the need for the above services because: Further, I certify that my clinical findings support that this patient is homebound (i.e. absences from home require considerable and taxing effort and are for medical reasons or mandaen services or infrequently or of short duration when for other reasons) because: Certification for Home Health Services: Based on the above findings, I certify that this patient is confined to the home and needs intermittent nursing home care, physical therapy and/or speech therapy or continues to need occupational therapy. The patient is under my care, and I have initiated the establishment of the plan of care. This patient will be followed by a physician who will periodically review the plan of care. Total Time Total Time Spent Total Time Spent (In Minutes): 50 Discharge Plan Discharge Items Patient Disposition: Transfer Intermediate Fac Reason For Visit: UTI, HYPERTENSIVE URGENCY Discharge Diagnosis: Hypertensive urgency Complicated UTI Chronic hypoxic respiratory failure on 2 to 3 L of oxygen at baseline Activity: Resume your previous activity Activity Comment: Continue with physical therapy Non-emergency contact: Primary Care Provider Call non-emergency contact if: you have any medication questions, your symptoms worsen and your temperature is above 101 Follow-up/Referrals: Horacio Sanchez MD [Primary Care Provider] - Diet: Heart Healthy Addtl Attending Provider Instructions: Follow-up with your primary care physician within a week time and likely you will need labs CBC/CMP/magnesium/phosphorus. You will be discharged on oral antibiotic to complete the course. For your constipation likely secondary to opiate use and lack of mobility, cont inue to use a scheduled stool softeners/laxatives. Continue with physical therapy. Your blood pressure medications are: Hydralazine 100 mg 3 times daily, amlodipine 2.5 Mg daily (new this admission), clonidine 0.2 mg twice daily, Coreg 12.5 Mg twice daily. Take your medications as prescribed. Please make sure that you are able to get your medications today by calling your pharmacy before you leave the hospital so that your treatment continuity is not broken. Pending Studies at Discharge: No Stand-Alone Forms: [facility] Skilled Items Patient informed of condition?: Yes DNR: Yes Discharge Level of Care: Skilled Communicable Disease: No Discharge Prognosis: Stable Lines: None Urinary Catheter: No Medications and DC Order Prescriptions: New amlodipine [Norvasc] 5 mg Tablet 2.5 mg PO QAM Qty: 15 0RF diclofenac sodium [Voltaren Arthritis Pain] 1 % Gel 2 g EXT Q6H PRN (Reason: back pain) Qty: 100 0RF Rx Instructions: over upper mid back area for pain, every 6 hours as needed for mild to moderate pain polyethylene glycol 3350 [Miralax] 17 gram Powder In Packet 17 g PO DAILY PRN (Reason: laxative effect) Qty: 30 0RF sennosides-docusate sodium [Senokot-S] 8.6-50 mg Tablet 1 tab PO QAM Qty: 30 0RF cefdinir 300 mg capsule 300 mg PO DAILY 4 Days Qty: 4 0RF Probiotic 3 billion cell capsule 3,000 mmu cells PO DAILY 7 Days Qty: 7 0RF Rx Instructions: administer with a meal Continued alprazolam [Xanax] 0.5 mg Tablet 0.25 - 0.5 mg PO BID PRN (Reason: Anxiety) pantoprazole [Protonix] 40 mg Tablet,Delayed Release (Dr/Ec) 40 mg PO BID loratadine [Claritin] 10 mg Tablet 10 mg PO QAM albuterol sulfate 90 mcg/actuation Hfa Aerosol Inhaler 2 puff INHALATION DIRECTED PRN (Reason: Shortness Of Breath) tamsulosin 0.4 mg capsule 0.4 mg PO HS Qty: 30 0RF aspirin 81 mg Tablet,Delayed Release (Dr/Ec) 81 mg PO DAILY multivitamin Tablet 1 tab PO DAILY potassium chloride 10 mEq capsule, extended release 10 meq PO DAILY PRN (Reason: .When takes lasix) furosemide 20 mg tablet 20 mg PO DAILY PRN (Reason: .edema) ondansetron 4 mg tablet,disintegrating 8 mg translingual BID PRN (Reason: Nausea) fluticasone propionate 50 mcg/actuation spray,suspension 2 spray INTRANASAL Q12 fluticasone propionate [Flovent] 110 mcg/actuation Hfa Aerosol Inhaler 1 puff INHALATION BID Rx Instructions: Daughter not sure of strength cholecalciferol (vitamin D3) 1,250 mcg (50,000 unit) capsule 50,000 unit PO WE Anoro Ellipta 62.5-25 mcg/actuation blister with device 1 ea INHALATION DAILY ferrous sulfate 325 mg (65 mg iron) Tablet 325 mg PO DAILY escitalopram oxalate 5 mg Tablet 5 mg PO DAILY oxycodone 5 mg Tablet 5 mg PO BID Changed hydralazine 100 mg Tablet 100 mg PO TID Qty: 90 0RF clonidine HCl 0.1 mg Tablet 0.2 mg PO BID Qty: 60 0RF carvedilol 25 mg tablet 12.5 mg PO BID Qty: 30 0RF Discharge Orders: Discharge Order (Routine); Ordered 10/03/22 Ordered By: Toshia Weston Admission Data Admit Date/Time: 09/28/22 16:24 Attending Provider: Toshia Weston Admit Provider: Mukesh Huang Primary Care Provider: Horacio Sanchez Other Providers: Mukesh Huang ; [place]
== END 2022-10-03 15:00 | DRG 690 ==
LOC: ED 11:28 → SUATTDRO 16:24 → 2W 16:24

== ENCOUNTER 2023-03-12 07:29 | Inpatient (IN) ==
[2023-03-12] MEDS ORDERED: methylPREDNISolone 125 MG/2 ML VIAL IV STA (07:35)
--- NOTE | 2023-03-12 07:39 | Emergency Department Note ---
History of Present Illness General Chief complaint: Respiratory Distress Stated complaint: RESP. DISTRESS Time Seen by Provider: 03/12/23 07:30 History of Present Illness 77-year-old female presents via EMS from home reportedly with severe shortness of breath that started last evening. Patient has a history of COPD she does use 3 L of oxygen. Of note the patient was diagnosed with pneumonia 2 weeks ago. Patient was found to be in respiratory distress on EMS arrival and the patient was given a DuoNeb treatment and then placed on CPAP with improvement. Patient denies any current cough cold or congestion symptoms. Patient states increased shortness of breath since last evening. There are no other mitigating or alleviating factors Home Medications Medication Instructions Recorded Confirmed Type albuterol sulfate 90 mcg/actuation 2 puff inhalation DIRECTED PRN 12/21/21 03/12/23 History aerosol inhaler Shortness Of Breath alprazolam 0.5 mg tablet (Xanax) 0.25 - 0.5 mg PO BID PRN Anxiety 12/21/21 03/12/23 History loratadine 10 mg tablet (Claritin) 10 mg PO QAM 12/21/21 03/12/23 History pantoprazole 40 mg tablet,delayed 40 mg PO BID 12/21/21 03/12/23 History release (Protonix) tamsulosin 0.4 mg capsule 0.4 mg PO HS #30 caps 03/24/22 03/12/23 Rx aspirin 81 mg tablet,delayed 81 mg PO DAILY 04/01/22 03/12/23 History release escitalopram oxalate 5 mg tablet 5 mg PO DAILY 06/01/22 03/12/23 History ferrous sulfate 325 mg (65 mg 325 mg PO DAILY 06/01/22 03/12/23 History iron) tablet oxycodone 5 mg tablet 5 mg PO BID 06/01/22 03/12/23 History cholecalciferol (vitamin D3) 1,250 50,000 unit PO WE 09/28/22 03/12/23 History mcg (50,000 unit) capsule fluticasone propionate 110 1 puff inhalation BID 09/28/22 03/12/23 History mcg/actuation HFA aerosol inhaler fluticasone propionate 50 2 spray intranasal Q12 09/28/22 03/12/23 History mcg/actuation nasal spray,suspension furosemide 20 mg tablet 20 mg PO DAILY PRN .edema 09/28/22 03/12/23 History multivitamin 1 tab PO DAILY 09/28/22 03/12/23 History ondansetron 4 mg disintegrating 8 mg translingual BID PRN Nausea 09/28/22 03/12/23 History tablet potassium chloride 10 mEq 10 meq PO DAILY PRN .When takes 09/28/22 03/12/23 History capsule,extended release lasix umeclidinium 62.5 mcg-vilanterol 1 ea inhalation DAILY 09/28/22 03/12/23 History 25 mcg/actuation powdr for inhalation (Anoro Ellipta) diclofenac sodium 1 % topical gel 2 g EXT Q6H PRN back pain #100 10/03/22 03/12/23 Rx (Voltaren Arthritis Pain) grams polyethylene glycol 3350 17 gram 17 g PO DAILY PRN laxative effect 10/03/22 03/12/23 Rx oral powder packet (Miralax) #30 ea sennosides 8.6 mg-docusate sodium 1 tab PO QAM #30 tabs 10/03/22 03/12/23 Rx 50 mg tablet (Senokot-S) carvedilol 12.5 mg tablet (Coreg) 12.5 mg PO BID 03/12/23 03/12/23 History clonidine HCl 0.1 mg tablet 0.1 mg PO BID 03/12/23 03/12/23 History hydralazine 100 mg tablet 100 mg PO BID 03/12/23 03/12/23 History losartan 50 mg tablet 50 mg PO BID 03/12/23 03/12/23 History prednisone 20 mg tablet 20 mg PO DAILY 03/12/23 03/12/23 History rosuvastatin 10 mg tablet 10 mg PO BID 03/12/23 03/12/23 History Allergies Allergy/AdvReac Type Severity Reaction Status Date / Time metronidazole [From Flagyl] Allergy Severe SHORTNESS Verified 03/12/23 08:36 OF BREATH amlodipine AdvReac Intermediate left leg Verified 03/12/23 08:36 numbness cefuroxime AdvReac Intermediate Gastrointestinal Verified 03/12/23 08:36 Upset Cephalosporins AdvReac Intermediate Gastrointestinal Verified 03/12/23 08:36 Upset ciprofloxacin AdvReac Intermediate Gastrointestinal Verified 03/12/23 08:36 Upset erythromycin base AdvReac Intermediate Gastrointestinal Verified 03/12/23 08:36 Upset sulfamethoxazole AdvReac Intermediate hyperkalemi Verified 03/12/23 08:36 [From Bactrim] a trimethoprim [From Bactrim] AdvReac Intermediate hyperkalemi Verified 03/12/23 08:36 a 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 Hx of hernia repair History of removal of ovarian cyst Hx of hysterectomy Hx of appendectomy Family History Mother Coronary heart disease Father Coronary heart disease Brother Diabetes Brother Coronary heart disease Other Heart disease Hypertension No family history of adverse response to anesthesia Social History Smoking Status: Current some day smoker Tobacco Type: Cigarettes Cigarettes Per Day: 2; Second Hand Exposure: No; Do You Dip or Chew Tobacco: No; Hx Alcohol Use: No Hx Substance Use: No Preferred Language: Swedish Communication Ability: Effective Visual Impairment: No Limitations Hospice Bereavement Coordinator Required: No Beliefs That Will Affect Care: None marital status: / Current Living Situation: Family Current Living Situation Comment: daughter How many Children do You have: 2 Feels Safe at Home: Yes Assistive Devices: Hospital Bed, Oxygen - Continuous, Stair Lift and Wheelchair Review of Systems A total of 10 systems reviewed and were otherwise negative Cardiovascular: + dyspnea at rest and + dyspnea on exertion; no chest pain Physical Exam Vital Signs Vital Signs - 24 hr 03/12/23 07:38 03/12/23 08:22 03/12/23 08:33 Temperature 36.9 C Temperature Source Oral Pulse Rate 59 L 55 L Pulse Rate [Left Finger] 59 L Pulse Rhythm Regular Pulse Strength Normal Respiratory Rate 22 24 Respiratory Effort / Characteristics Labored Respiratory Depth Normal Respiratory Pattern Regular Blood Pressure 183/82 H Blood Pressure [Left Arm] 213/86 H Blood Pressure Mean 115 Blood Pressure Mean [Left Arm] 128 Blood Pressure Position Sitting Blood Pressure Position [Left Arm] Sitting Pulse Oximetry 87 L 98 Oxygen Delivery Method Nasal Cannula Nasal Cannula Oxygen Flow Rate 3 5 Sepsis Recent Fever Within 48 Hours No Sepsis New/Unexplained Change in Mental Status No Sepsis Action Taken by Nursing No Action Required Oxygen Flow Rate - Titration Pulse Oximetry Post Tiitration 03/12/23 08:35 Temperature Temperature Source Pulse Rate Pulse Rate [Left Finger] Pulse Rhythm Pulse Strength Respiratory Rate Respiratory Effort / Characteristics Respiratory Depth Respiratory Pattern Blood Pressure Blood Pressure [Left Arm] Blood Pressure Mean Blood Pressure Mean [Left Arm] Blood Pressure Position Blood Pressure Position [Left Arm] Pulse Oximetry 87 L Oxygen Delivery Method Nasal Cannula Oxygen Flow Rate 3 Sepsis Recent Fever Within 48 Hours Sepsis New/Unexplained Change in Mental Status Sepsis Action Taken by Nursing Oxygen Flow Rate - Titration 5 Pulse Oximetry Post Tiitration 97 GENERAL: Patient is awake alert in no acute distress patient is resting comfortably and showing no signs of anxiety EYES: The conjunctivae are clear. The pupils are round and reactive. EARS, NOSE, MOUTH AND THROAT: The nose is without any evidence of any deformity. Mucous membranes are moist. Tongue is midline. NECK: The neck is nontender and supple. RESPIRATORY: Wheezing bilaterally, speaking in full sentences CARDIOVASCULAR: Regular rate and rhythm noted there no murmurs rubs or gallops normal S1 normal S2. GASTROINTESTINAL: The abdomen is soft. Abdomen is nontender. BACK: No midline tenderness or or step-off noted range of motion in flexion extension as well as rotation no signs of muscle spasm noted MUSCULOSKELETAL/EXTREMITIES: There is no evidence of gross deformity full range of motion is noted in the hips and shoulders. SKIN: There is no obvious evidence of any rash. There are no petechiae, pallor or cyanosis noted. NEUROLOGIC: Patient is awake alert and oriented x3 strength is symmetric Course Reevaluation(s) Reevaluation #1: Patient is resting in no distress; patient was given Solu-Medrol. Patient was given hydralazine for increased blood pressure. Time: :47 Consultations Consultation #1: Case was discussed with Dr. Hernandez from [facility] for admission Time: :47 Administered Medications Discontinued Medications Aspirin (Aspirin Chew 324 Mg) 324 mg PO NOW STA Stop: 03/12/23 08:53 Last Admin: 03/12/23 08:56 Dose: 324 mg Documented By: NIRALI Hydralazine HCl (Hydralazine Hcl 20 Mg/Ml Vial) 10 mg IV NOW STA Stop: 03/12/23 09:30 Last Admin: 03/12/23 09:40 Dose: 10 mg Documented By: NIRALI Methylprednisolone (Methylprednisolone 125 Mg/2 Ml Vial) 125 mg IV NOW STA Stop: 03/12/23 07:36 Last Admin: 03/12/23 07:53 Dose: 125 mg Documented By: GEMA Critical Care Time Critical Care Time: Yes Total Critical Care Time: 35 I have personally spent greater than 35 minutes of critical care time in the direct management of this patient. This includes bedside care, interpretation of diagnostic studies, and testing, discussion with consultants, patient, and family members, and other required patient management activities. These minutes are in excess of all separately billable procedures. Medical Decision Making Medical Records Attestation: I reviewed the patient's medical records. Home Medications Current Medication List: was personally reviewed by Laboratory Data Attestation: I reviewed the patient's lab results. Labs interpreted by me mild leukocytosis, mild elevation in creatinine of 1.3, elevated troponin 03/12/23 07:46 03/12/23 07:46 Lab Results 03/12/23 03/12/23 03/12/23 Range/Units 07:46 07:47 08:00 WBC 12.51 H (4.8-10.8) K/ul RBC 3.72 L (4.20-5.40) M/uL Hgb 10.4 L (12.0-16.0) g/dl Hct 34.0 L (37.0-47.0) % MCV 91.4 (80.0-100.0) fL MCH 28.0 (25.0-34.0) pg MCHC 30.6 L (32.0-36.0) g/dL RDW Std Deviation 43.8 (36.4-46.3) fL RDW Coeff of [place] 13.3 (11.5-14.5) % Plt Count 219 (130-400) K/uL MPV 10.6 (9.4-12.4) fL Immature Gran % (Auto) 1.4 % Neut % (Auto) 75.3 % Lymph % (Auto) 13.1 % [place] % (Auto) 7.3 % Eos % (Auto) 2.7 % Baso % (Auto) 0.2 % Neut # (Auto) 9.41 H (1.40-6.50) K/uL Lymph # (Auto) 1.64 (1.20-3.40) K/uL [place] # (Auto) 0.91 H (0.11-0.59) K/uL Eos # (Auto) 0.34 (0.00-0.50) K/uL Baso # (Auto) 0.03 (0.00-0.20) K/uL Immature Gran # (Auto) 0.18 (0.01-0.20) K/uL PT 10.5 (9.0-12.0) Seconds INR 1.0 (0.9-1.1) APTT 21 (21-31) Seconds PTT Ratio 0.7 VBG pH 7.33 L (7.36-7.41) VBG pCO2 67 H (38-50) mmHg VBG pO2 25 mmHg VBG HCO3 35 mmol/L VBG O2 Saturation < 60.0 % VBG Base Excess 7.0 mEq/L Sodium 141 (136-145) mmol/L Potassium 4.2 (3.5-5.1) mmol/L Chloride 101 (98-107) mmol/L Carbon Dioxide 36 H (21-32) mmol/L Anion Gap 4 (3-11) BUN 34 H (6-23) mg/dl Creatinine 1.30 H (0.6-1.2) mg/dl Est Cr Clr Drug Dosing 32.2 ml/min Est GFR ( Amer) 45.5 ml/min Est GFR (Non-Af Amer) 39.3 ml/min BUN/Creatinine Ratio 26.2 H (10-20) Glucose 94 (70-99(Fasting)) mg/dl Lactate 1.3 (0.4-2.0) mmol/L Calcium 9.5 (8.6-10.3) mg/dl Magnesium 1.8 (1.7-2.4) mg/dl Total Bilirubin 0.4 (0.2-1.0) mg/dl Direct Bilirubin 0.0 (0-0.2) mg/dl AST 20 (13-39) U/L ALT 21 (7-52) U/L Alkaline Phosphatase 41 (34-104) U/L Troponin I High Sens 59.1 H* (0-14) pg/ml Total Protein 6.8 (6.0-8.3) gm/dl Albumin 3.8 (3.4-5.0) gm/dl Procalcitonin 0.21 (0-0.5) ng/ml Urine Color Urine Appearance (Clear) Urine pH (4.5-7.5) Ur Specific [place] (1.000-1.030) Urine Protein (Negative) Urine Glucose (UA) (Negative) Urine Ketones (Negative) Urine Blood (Negative) Urine Nitrite (Negative) Urine Bilirubin (Negative) Urine Urobilinogen (Negative) Ur Leukocyte Esterase (Negative) Urine WBC (Auto) (0-5) /hpf Urine RBC (Auto) (0-4) /hpf U Hyaline Cast (Auto) (0-5) /lpf U Epithel Cells (Auto) (0-5) /lpf Urine Bacteria (Auto) (Negative) SARS-CoV-2 (PCR) NEGATIVE (Negative) Influenza Type A (PCR) Negative (Neg) Influenza Type B (PCR) Negative (Neg) RSV (RT-PCR) Negative (Neg) 03/12/23 Range/Units 08:10 WBC (4.8-10.8) K/ul RBC (4.20-5.40) M/uL Hgb (12.0-16.0) g/dl Hct (37.0-47.0) % MCV (80.0-100.0) fL MCH (25.0-34.0) pg MCHC (32.0-36.0) g/dL RDW Std Deviation (36.4-46.3) fL RDW Coeff of [place] (11.5-14.5) % Plt Count (130-400) K/uL MPV (9.4-12.4) fL Immature Gran % (Auto) % Neut % (Auto) % Lymph % (Auto) % [place] % (Auto) % Eos % (Auto) % Baso % (Auto) % Neut # (Auto) (1.40-6.50) K/uL Lymph # (Auto) (1.20-3.40) K/uL [place] # (Auto) (0.11-0.59) K/uL Eos # (Auto) (0.00-0.50) K/uL Baso # (Auto) (0.00-0.20) K/uL Immature Gran # (Auto) (0.01-0.20) K/uL PT (9.0-12.0) Seconds INR (0.9-1.1) APTT (21-31) Seconds PTT Ratio VBG pH (7.36-7.41) VBG pCO2 (38-50) mmHg VBG pO2 mmHg VBG HCO3 mmol/L VBG O2 Saturation % VBG Base Excess mEq/L Sodium (136-145) mmol/L Potassium (3.5-5.1) mmol/L Chloride (98-107) mmol/L Carbon Dioxide (21-32) mmol/L Anion Gap (3-11) BUN (6-23) mg/dl Creatinine (0.6-1.2) mg/dl Est Cr Clr Drug Dosing ml/min Est GFR ( Amer) ml/min Est GFR (Non-Af Amer) ml/min BUN/Creatinine Ratio (10-20) Glucose (70-99(Fasting)) mg/dl Lactate (0.4-2.0) mmol/L Calcium (8.6-10.3) mg/dl Magnesium (1.7-2.4) mg/dl Total Bilirubin (0.2-1.0) mg/dl Direct Bilirubin (0-0.2) mg/dl AST (13-39) U/L ALT (7-52) U/L Alkaline Phosphatase (34-104) U/L Troponin I High Sens (0-14) pg/ml Total Protein (6.0-8.3) gm/dl Albumin (3.4-5.0) gm/dl Procalcitonin (0-0.5) ng/ml Urine Color Yellow Urine Appearance Cloudy A (Clear) Urine pH 6.0 (4.5-7.5) Ur Specific [place] 1.014 (1.000-1.030) Urine Protein 2+ H (Negative) Urine Glucose (UA) Negative (Negative) Urine Ketones Negative (Negative) Urine Blood Negative (Negative) Urine Nitrite Negative (Negative) Urine Bilirubin Negative (Negative) Urine Urobilinogen Negative (Negative) Ur Leukocyte Esterase 1+ H (Negative) Urine WBC (Auto) >30 H (0-5) /hpf Urine RBC (Auto) 0-4 (0-4) /hpf U Hyaline Cast (Auto) 1-5 (0-5) /lpf U Epithel Cells (Auto) >30 H (0-5) /lpf Urine Bacteria (Auto) Negative (Negative) SARS-CoV-2 (PCR) (Negative) Influenza Type A (PCR) (Neg) Influenza Type B (PCR) (Neg) RSV (RT-PCR) (Neg) Imaging Data Attestation: I personally reviewed and interpreted this imaging study as follows: My Impression: Chest x-ray interpreted by me COPD changes no obvious infiltrate no pneumothorax Radiologist's Impression: Chest X-Ray 03/12/23 07:34 XR chest 1V portable HISTORY: Sepsis COMPARISON: Chest 09/28/2022. FINDINGS: No pneumothorax. No pleural effusions. No focal lung consolidations to suggest a pneumonia. No evidence for pulmonary edema. The cardiac silhouette remains top normal in size. There are calcifications within the aortic knob. Degenerative changes again noted within the shoulders. IMPRESSION: No significant change compared to the prior study. No acute process. ACT 112: Negative or not required by law. Electronically signed by: Randy Waldron M.D. 03/12/2023 8:50 AM ECG Data Attestation: I personally reviewed and interpreted this ECG as follows: Additional Comments: EKG interpreted by me sinus bradycardia rate of 59, nonspecific ST-T change, no obvious ST segment elevation or depression, normal axis normal intervals Telemetry was ordered by me interpreted as normal sinus rhythm rate of 62 MDM Narrative Medical decision making differential diagnosis includes COPD exacerbation, CHF, pneumonia, influenza, COVID, anemia, cardiac dysrhythmia Plan is to check labs, EKG, chest x-ray, give IV Solu-Medrol EMS gave me bedside report regarding the administration of DuoNeb and CPAP Patient was started on IV hydralazine, given aspirin Patient's heart score is a 4 Patient will be admitted for further treatment of elevated troponin, COPD exacerbation with hypoxia Impression & Plan COPD (chronic obstructive pulmonary disease), Elevated troponin, HTN (hypertension) Discharge Plan Visit Data Chief Complaint: Respiratory Distress Stated Complaint: RESP. DISTRESS ED Provider: Dima Marinelli Discharge Problem: COPD (chronic obstructive pulmonary disease), Elevated troponin, HTN (hypertension) Patient Disposition: Admitted As Inpatient Forms Stand Alone Forms: [facility] Prescriptions Prescriptions: No Action alprazolam [Xanax] 0.5 mg Tablet 0.25 - 0.5 mg PO BID PRN (Reason: Anxiety) pantoprazole [Protonix] 40 mg Tablet,Delayed Release (Dr/Ec) 40 mg PO BID loratadine [Claritin] 10 mg Tablet 10 mg PO QAM albuterol sulfate 90 mcg/actuation Hfa Aerosol Inhaler 2 puff INHALATION DIRECTED PRN (Reason: Shortness Of Breath) tamsulosin 0.4 mg capsule 0.4 mg PO HS Qty: 30 0RF aspirin 81 mg Tablet,Delayed Release (Dr/Ec) 81 mg PO DAILY multivitamin Tablet 1 tab PO DAILY potassium chloride 10 mEq capsule, extended release 10 meq PO DAILY PRN (Reason: .When takes lasix) furosemide 20 mg tablet 20 mg PO DAILY PRN (Reason: .edema) ondansetron 4 mg tablet,disintegrating 8 mg translingual BID PRN (Reason: Nausea) fluticasone propionate 50 mcg/actuation spray,suspension 2 spray INTRANASAL Q12 fluticasone propionate 110 mcg/actuation Hfa Aerosol Inhaler 1 puff INHALATION BID cholecalciferol (vitamin D3) 1,250 mcg (50,000 unit) capsule 50,000 unit PO WE Anoro Ellipta 62.5-25 mcg/actuation blister with device 1 ea INHALATION DAILY diclofenac sodium [Voltaren Arthritis Pain] 1 % Gel 2 g EXT Q6H PRN (Reason: back pain) Qty: 100 0RF Rx Instructions: over upper mid back area for pain, every 6 hours as needed for mild to moderate pain polyethylene glycol 3350 [Miralax] 17 gram Powder In Packet 17 g PO DAILY PRN (Reason: laxative effect) Qty: 30 0RF Rx Instructions: Pt doesnt like taking sennosides-docusate sodium [Senokot-S] 8.6-50 mg Tablet 1 tab PO QAM Qty: 30 0RF losartan 50 mg Tablet 50 mg PO BID carvedilol [Coreg] 12.5 mg Tablet 12.5 mg PO BID Rx Instructions: must administer with a meal/food prednisone 20 mg Tablet 20 mg PO DAILY Rx Instructions: On Tapered Dose Still needs 5 days of 20 rosuvastatin 10 mg Tablet 10 mg PO BID clonidine HCl 0.1 mg tablet 0.1 mg PO BID hydralazine 100 mg tablet 100 mg PO BID ferrous sulfate 325 mg (65 mg iron) Tablet 325 mg PO DAILY escitalopram oxalate 5 mg Tablet 5 mg PO DAILY oxycodone 5 mg Tablet 5 mg PO BID Referrals Referrals: [facility] [Non-Staff] -
[2023-03-12 08:15] LABS: Basophils # (auto) 0.03 K/uL (0.00-0.20); Basophils % (auto) 0.2 %; Eosinophils # (auto) 0.34 K/uL (0.00-0.50); Eosinophils % (auto) 2.7 %; Hemoglobin 10.4 g/dl (12.0-16.0); Immature Granulocytes # (auto) 0.18 K/uL (0.01-0.20); Immature Granulocytes % (auto) 1.4 %; Lymphocytes # (auto) 1.64 K/uL (1.20-3.40); Lymphocytes % (auto) 13.1 %; Mean Corpuscular Hgb Conc 30.6 g/dL (32.0-36.0); Mean Corpuscular Volume 91.4 fL (80.0-100.0); Mean Platelet Volume 10.6 fL (9.4-12.4); Monocytes # (auto) 0.91 K/uL (0.11-0.59); Monocytes % (auto) 7.3 %; Neutrophils # (auto) 9.41 K/uL (1.40-6.50); Neutrophils % (auto) 75.3 %; Platelet Count 219 K/uL (130-400); RDW Coefficient of Variation 13.3 % (11.5-14.5); RDW Standard Deviation 43.8 fL (36.4-46.3); Red Blood Count 3.72 M/uL (4.20-5.40); White Blood Count 12.51 K/ul (4.8-10.8)
[2023-03-12 08:19] LABS: HCO3 VBG 35 mmol/L; Oxygen Saturation VBG < 60.0 %; PCO2 VBG 67 mmHg (38-50); PO2 VBG 25 mmHg; pH VBG 7.33 (7.36-7.41)
[2023-03-12 08:24] LABS: Albumin Level 3.8 gm/dl (3.4-5.0); BUN Creatinine Ratio 26.2 (10-20); Bilirubin,Total 0.4 mg/dl (0.2-1.0); Calcium 9.5 mg/dl (8.6-10.3); Creatinine Clr Calc Pharmacy 32.2 ml/min; Est GFR (African American) 45.5 ml/min; Est GFR (Non-African American) 39.3 ml/min; Magnesium 1.8 mg/dl (1.7-2.4); Potassium 4.2 mmol/L (3.5-5.1); Total Protein 6.8 gm/dl (6.0-8.3)
[2023-03-12 08:31] LABS: Appearance Urine Cloudy (Clear); Bacteria Urine Automated Negative (Negative); Bilirubin Urine Negative (Negative); Blood Urine Negative (Negative); Color Urine Yellow; Epithelial Cell Urine Auto >30 /lpf (0-5); Glucose Urine UA Negative (Negative); Ketones Urine Negative (Negative); Leukocyte Esterase Urine 1+ (Negative); Nitrite Urine Negative (Negative); Protein Urine 2+ (Negative); RBC Urine Automated 0-4 /hpf (0-4); Specific Gravity Urine 1.014 (1.000-1.030); Urobilinogen Urine Negative (Negative); WBC Urine Automated >30 /hpf (0-5)
[2023-03-12 08:34] LABS: Partial Thromboplastin Ratio 0.7; Partial Thromboplastin Time 21 Seconds (21-31); Prothrombin Time 10.5 Seconds (9.0-12.0)
[2023-03-12 08:50] LABS: Troponin I High Sensitivity 59.1 pg/ml (0-14)
--- NOTE | 2023-03-12 08:51 | XRay Report ---
XR chest 1V portable HISTORY: Sepsis COMPARISON: Chest 09/28/2022. FINDINGS: No pneumothorax. No pleural effusions. No focal lung consolidations to suggest a pneumonia. No evidence for pulmonary edema. The cardiac silhouette remains top normal in size. There are calcif ications within the aortic knob. Degenerative changes again noted within the shoulders. IMPRESSION: No significant change compared to the prior study. No acute process. ACT 112: Negative or not required by law. Electronically signed by: Randy Waldron M.D. 03/12/2023 8:50 AM
[2023-03-12] MEDS ORDERED: ASPIRIN CHEW 324 MG PO STA (08:52)
[2023-03-12 09:03] LABS: Influenza A virus by PCR Negative (Neg); Influenza B virus by PCR Negative (Neg); RSV by PCR Negative (Neg); SARS CoV2 RNA(COVID-19) Ceph NEGATIVE (Negative)
[2023-03-12] MEDS ORDERED: hydrALAZINE HCL 20 MG/ML VIAL IV STA (09:29)
[2023-03-12] MEDS ORDERED: hydrALAZINE TAB 50 MG TAB PO STA (09:55)
[2023-03-12] MEDS ORDERED: cloNIDine HCL 0.1 MG TAB PO ONE (09:55)
--- NOTE | 2023-03-12 10:02 | History & Physical Report ---
Date of Service March 12, 2023 Assessment & Plan (1) Acute on chronic respiratory failure with hypoxia and hypercapnia: (2) COPD exacerbation: (3) Acute heart failure with preserved ejection fraction (HFpEF): Plan Ms. Dewey is a 77-year-old woman who has significant past medical history of chronic hypoxic respiratory failure on 2-3 L of oxygen, COPD, HTN, HLD, CKD-3b, gastritis, GERD, IBS, history of E. coli UTI, depression with anxiety, history of tobacco abuse and wheelchair-bound status 2/2 congenital hip dysplasia s/p multiple surgies, as well as chronic opioid use who presents to [facility] due to progressive SOB despite ongoing antibiotics and prednisone taper. Pulmonary embolism high on differential, however, obtaining CTA complicated given patient inability to lay flat, anxiety, and CKD. Administered IV diuertics and will reassess clinical response. Cardiology consulted given up trending Trop and question if contrast were to be administered--is there concern for ischemic etiology, in order to prioritize cath over CTA. Low dose heparin started iso reported chest pain/SOB. LE dopplers are negative. However, given hypertrophy on ECHO and blood pressures, suspicion for HFpEF is high. General plan is to continue heparin, trial low dose diuretic, COPD management, and blood pressure control. Reassessment in am will determine next steps and ability to pursue further imaging as tolerated. #Acute on chronic respiratory failure with hypoxia, hypercapnia, multifactorial #COPD -Recently hospitalized at [facility] 3 weeks ago, with subsequent stay at [facility]--completed 5 days IV abx at [facility] as well as, doxy course/long steroid taper at [facility]. -BNP 457, new regurg on ECHO, ?HFPEF -Placed on heparin given elevated DDIMER, PERC 2/PESI 108 -Dopplers of BLE negative -Unable to lay entirely flat, nervous about CT risks, consider for VQ scan--however, ? abnormal given chronic lung disease -Continue home anoro ellipta (LAMA/LABA), add ICS -Duonebs/albuterol prn -Schedule mucinex BID, flutter valve -Assess response to IV lasix, Cardiology following -?STEPHANIE, OP sleep study -IV unasyn in interim given list of "allergies", leukocytosis iso ongoing steroid use? reassess and deescalate as able -Transition to Po prednisone in am #Acute HFpEF Exacerbation #Hypertensive Urgency #Elevated Troponin, like demand iso hypertension #Asymptomatic Bradycardia -ECHO with EF 65%, but new pulm htn, mitral/tricupsid regurg, no documented right heart strain, no wall motion abnormalities -Resent discontinued Coreg 12.5mg 2/2 bradycardia, Losartan discontinued at other admission -Home regimen: hydralazine 100mg BID, clonidine 0.1 BID -s/p hydralazine 10mg IV and PO home meds -Daughter reports previously not tolerating increased clonidine dosing 2/2 bradycardia -Increase hydralazine 100mg TID -s/p IV lasix 10mg IV, will reassess in am for further dosing/clinical response -Strict I/Os, daily weights -Cardiology consulted, added felodipine 5mg -Trend troponin to peak #CKD IIIb -stable; consider risk/benefits of contrast use #HLD Continue home ASA and rosuvastatin #Allergic rhinitis -Continue home flonase and loratadine #Depression #Anxiety -Continue home lexapro -Continue home xanax bid prn #Chronic iron deficiency anemia -stable hgb -Continue home iron supplementation #GERD -Continue protonix bid #Nephrolithiasis c/b hydronephrosis s/p stenting 2021 -continue home tamsulosin 0.4 mg qhs #Chronic pain on chronic opioids #Congential Hip dysplasia s/p multiple #Burning mouth syndrome - Continue home Oxy 5 BID -Senakot scheduled, miralaz prn DVT heparin ggt Diet HH Admit PCU/tele Admission and Anticipated Discharge Date Admission Date: Time spent evaluating patient, direct bedside care, chart review, placing or ders, interpretation of diagnostic studies, discussion with consultants, patient, and family members, as well as other required patient management activities is 60 minutes. History of Present Illness Chief Complaint: Ongoing SOB Primary Care Provider: NO PCP Ms. Dewey is a 77-year-old woman who has significant past medical history of chronic hypoxic respiratory failure on 2-3 L of oxygen, COPD, HTN, HLD, CKD-3b, gastritis, GERD, IBS, history of E. coli UTI, depression with anxiety, history of tobacco abuse and wheelchair-bound status 2/2 congential hip dysplasia s/p multiple surgies, as well as chronic opioid use who presents to [facility] due to progressive SOB despite ongoing antibiotics and prednisone taper. Patient overall a poor historian, but reports being "diagnosed with pneumonia" and "never getting better." She states that she has been on steroids and multiple courses of antibiotics, but feels like she cannot catch her breath. She denies fevers or chills. She denies significant sputum production. She states she does feel uncomfortable laying flat at this time. She states she has been at [facility] for the last 2 weeks, but not getting any better. She also notes that she had recent admission for similar concerns at "another hospital." She endorses generalized chest pain, like "squeezing of [her] ribs." She denies palpitations, dizziness, leg swelling, or other acute concerns. She is prescribed lasix, but does not take. Patient did not take medications this morning. Further history gathered from daughter by phone, Erica Alvarez, who was able to confirm home meds. She notes that patient has been hospitalized at many hospitals and is not sure of the outcome from every visit. More recent hospitalization was [facility], prompting the rehab stay at [facility]. In the ED, vitals were notable for BP of up to 213, HR in high 50s, and O2 sat of 99 on 5L (low at 87 upon admission). Imaging revealed CXR with stable silhouette, and on personal review signs of congestion EKG sinus ED interventions: methylpred, asa Consultants: Cardiology Patient to be admitted to PCU tele for further evaluation and management of acute on chronic hypoxic/hypercapnic respiratory failure Allergies Allergy/AdvReac Type Severity Reaction Status Date / Time metronidazole [From Flagyl] Allergy Severe SHORTNESS Verified 03/12/23 08:36 OF BREATH amlodipine AdvReac Intermediate left leg Verified 03/12/23 08:36 numbness cefuroxime AdvReac Intermediate Gastrointestinal Verified 03/12/23 08:36 Upset Cephalosporins AdvReac Intermediate Gastrointestinal Verified 03/12/23 08:36 Upset ciprofloxacin AdvReac Intermediate Gastrointestinal Verified 03/12/23 08:36 Upset erythromycin base AdvReac Intermediate Gastrointestinal Verified 03/12/23 08:36 Upset sulfamethoxazole AdvReac Intermediate hyperkalemi Verified 03/12/23 08:36 [From Bactrim] a trimethoprim [From Bactrim] AdvReac Intermediate hyperkalemi Verified 03/12/23 08:36 a Home Medications Medication Instructions Recorded Confirmed Type albuterol sulfate 90 mcg/actuation 2 puff inhalation DIRECTED PRN 12/21/21 03/12/23 History aerosol inhaler Shortness Of Breath alprazolam 0.5 mg tablet (Xanax) 0.25 - 0.5 mg PO BID PRN Anxiety 12/21/21 03/12/23 History loratadine 10 mg tablet (Claritin) 10 mg PO QAM 12/21/21 03/12/23 History pantoprazole 40 mg tablet,delayed 40 mg PO BID 12/21/21 03/12/23 History release (Protonix) tamsulosin 0.4 mg capsule 0.4 mg PO HS #30 caps 03/24/22 03/12/23 Rx aspirin 81 mg tablet,delayed 81 mg PO DAILY 04/01/22 03/12/23 History release escitalopram oxalate 5 mg tablet 5 mg PO DAILY 06/01/22 03/12/23 History ferrous sulfate 325 mg (65 mg 325 mg PO DAILY 06/01/22 03/12/23 History iron) tablet oxycodone 5 mg tablet 5 mg PO BID 06/01/22 03/12/23 History cholecalciferol (vitamin D3) 1,250 50,000 unit PO WE 09/28/22 03/12/23 History mcg (50,000 unit) capsule fluticasone propionate 50 2 spray intranasal Q12 09/28/22 03/12/23 History mcg/actuation nasal spray,suspension furosemide 20 mg tablet 20 mg PO DAILY PRN .edema 09/28/22 03/12/23 History multivitamin 1 tab PO DAILY 09/28/22 03/12/23 History ondansetron 4 mg disintegrating 8 mg translingual BID PRN Nausea 09/28/22 03/12/23 History tablet potassium chloride 10 mEq 10 meq PO DAILY PRN .When takes 09/28/22 03/12/23 History capsule,extended release lasix umeclidinium 62.5 mcg-vilanterol 1 ea inhalation DAILY 09/28/22 03/12/23 History 25 mcg/actuation powdr for inhalation (Anoro Ellipta) diclofenac sodium 1 % topical gel 2 g EXT Q6H PRN back pain #100 10/03/22 03/12/23 Rx (Voltaren Arthritis Pain) grams polyethylene glycol 3350 17 gram 17 g PO DAILY PRN laxative effect 10/03/22 03/12/23 Rx oral powder packet (Miralax) #30 ea sennosides 8.6 mg-docusate sodium 1 tab PO QAM #30 tabs 10/03/22 03/12/23 Rx 50 mg tablet (Senokot-S) clonidine HCl 0.1 mg tablet 0.1 mg PO BID 03/12/23 03/12/23 History hydralazine 100 mg tablet 100 mg PO BID 03/12/23 03/12/23 History prednisone 20 mg tablet 20 mg PO DAILY 03/12/23 03/12/23 History rosuvastatin 10 mg tablet 10 mg PO HS 03/12/23 03/12/23 History 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 Hx of hernia repair History of removal of ovarian cyst Hx of hysterectomy Hx of appendectomy Family History Mother Coronary heart disease Father Coronary heart disease Brother Diabetes Brother Coronary heart disease Other Heart disease Hypertension No family history of adverse response to anesthesia Social History Smoking Status: Former smoker Tobacco Type: Cigarettes Cigarettes Per Day: 2; Smoking End Date: 3 years ago; Second Hand Exposure: No; Do You Dip or Chew Tobacco: No; Hx Alcohol Use: No Hx Substance Use: No Preferred Language: Malawian Communication Ability: Effective Visual Impairment: No Limitations Quantity Surveyor Required: No Beliefs That Will Affect Care: None marital status: / Current Living Situation: Family Current Living Situation Comment: daughter How many Children do You have: 2 Other Information That Helps Us Care for You: No Feels Safe at Home: Yes Safety Concerns: Feels Safe At This Time Assistive Devices: Denture - Upper, Denture - Lower, Oxygen - Continuous and Wheelchair Review of Systems Review of Systems: Constitutional: (-) fever/chills, (-) recent loss of weight, (-) appetite changes, (-) night sweats. Head: (-) headache, (-) dizziness. Eye: (-) blurring of vision, (-) double vision, (-) redness. Ear: (-) hearing loss, (-) discharge, (-) vertigo Nose: (-) discharge, (-) bleeding, (-) congestion, (-) post nasal drip. Throat: (-) sore throat, (-) hoarseness of voice, (-) odynophagia. Cardiovascular: (+) chest pain diffuse, (-) palpitations, (-) syncope, (-) orthopnea, (-) PND, (-) leg swelling. Respiratory: (++) shortness of breath, (-) cough, (-) wheezing, (-) hemoptysis. Neuro: (-) weakness in extremities, (-) numbness, (-) tingling, (-) tremor. Gastrointestinal: (-) belly pain, (-) belly distension, (-) nausea, (-) vomiting, (-) diarrhea, (-) constipation, (-) na, (-) hematemesis, (-) hematochezia, (-) bowel incontinence Genitourinary: (-) hematuria, (-) dysuria, (-) polyuria, (-) hesitancy, (-) frequency, (-) urinary incontinence. Musculoskeletal: (-) myalgia, (-) arthralgia. Skin: (-) rashes. Endocrine: (-) heat/cold intolerance. Psychiatry: (-) depression, (-) hallucination. Physical Exam Physical Exam: GENERAL APPEARANCE: AxOx2-3 baseline per daughter, anxious HEENT: NC, AT. MMM. EOMI, clear conjunctiva, oropharynx clear. NECK: Supple without lymphadenopathy. No stiffness or restricted ROM. HEART: Normal rate and regular rhythm, ?gallop LUNGS: CTAB, moving air well. No crackles or wheezes are heard. ABDOMEN: Soft, nontender, nondistended with good bowel sounds heard. BACK: No CVAT, no obvious deformity. EXTREMITIES: Without cyanosis, clubbing or edema. NEUROLOGICAL: Grossly nonfocal. Alert and oriented, moving all 4 extremities. CN not formally tested but appear grossly intact Skin: Warm and dry without any rash. Results & Data Results & Data Vital Signs (Past 12 Hours) Vital Signs Temp Pulse Pulse Resp BP BP Pulse Ox 03/12/23 08:35 87 L 03/12/23 08:33 59 L 24 213/86 H 98 03/12/23 08:22 55 L 03/12/23 07:38 36.9 C 59 L 22 183/82 H 87 L O2 Del Method O2 Flow Rate 03/12/23 08:35 Nasal Cannula 3 03/12/23 08:33 Nasal Cannula 5 03/12/23 08:22 03/12/23 07:38 Nasal Cannula 3 Laboratory Results Short CBC 03/12/23 Range/Units 07:46 WBC 12.51 H (4.8-10.8) K/ul Hgb 10.4 L (12.0-16.0) g/dl Hct 34.0 L (37.0-47.0) % Plt Count 219 (130-400) K/uL BMP 03/12/23 07:46 Sodium 141 Potassium 4.2 Chloride 101 Carbon Dioxide 36 H BUN 34 H Creatinine 1.30 H Glucose 94 Calcium 9.5 Liver Function 03/12/23 Range/Units 07:46 Total Bilirubin 0.4 (0.2-1.0) mg/dl Direct Bilirubin 0.0 (0-0.2) mg/dl AST 20 (13-39) U/L ALT 21 (7-52) U/L Alkaline Phosphatase 41 (34-104) U/L Albumin 3.8 (3.4-5.0) gm/dl Urine 03/12/23 Range/Units 08:10 Urine Color Yellow Urine Appearance Cloudy A (Clear) Urine pH 6.0 (4.5-7.5) Ur Specific [place] 1.014 (1.000-1.030) Urine Protein 2+ H (Negative) Urine Glucose (UA) Negative (Negative) Diagnostic Findings Chest X-Ray 03/12/23 07:34 XR chest 1V portable HISTORY: Sepsis COMPARISON: Chest 09/28/2022. FINDINGS: No pneumothorax. No pleural effusions. No focal lung consolidations to suggest a pneumonia. No evidence for pulmonary edema. The cardiac silhouette remains top normal in size. There are calcifications within the aortic knob. Degenerative changes again noted within the shoulders. IMPRESSION: No significant change compared to the prior study. No acute process. ACT 112: Negative or not required by law. Electronically signed by: Randy Waldron M.D. 03/12/2023 8:50 AM Venous Doppler Study 03/12/23 11:13 BILATERAL LOWER EXTREMITY VENOUS DOPPLER HISTORY: +DDimer, shortness of breath. COMPARISON STUDY: None. FINDINGS: There is normal compressibility, flow, and augmentation within the bilateral lower extremity deep venous systems. IMPRESSION: No DVT within the right or left lower extremity. ACT 112: Negative or not required by law. Electronically signed by: Randy Waldron M.D. 03/12/2023 12:45 PM Medications Administered Home Medications Medication Instructions Recorded Confirmed Last Taken albuterol sulfate 90 mcg/actuation 2 puff inhalation DIRECTED PRN 12/21/21 03/12/23 03/12/23 aerosol inhaler Shortness Of Breath alprazolam 0.5 mg tablet (Xanax) 0.25 - 0.5 mg PO BID PRN Anxiety 12/21/21 03/12/23 03/11/23 loratadine 10 mg tablet (Claritin) 10 mg PO QAM 12/21/21 03/12/23 03/11/23 pantoprazole 40 mg tablet,delayed 40 mg PO BID 12/21/21 03/12/23 03/11/23 release (Protonix) tamsulosin 0.4 mg capsule 0.4 mg PO HS #30 caps 03/24/22 03/12/23 03/11/23 aspirin 81 mg tablet,delayed 81 mg PO DAILY 04/01/22 03/12/23 03/11/23 release escitalopram oxalate 5 mg tablet 5 mg PO DAILY 06/01/22 03/12/23 03/11/23 ferrous sulfate 325 mg (65 mg 325 mg PO DAILY 06/01/22 03/12/23 03/11/23 iron) tablet oxycodone 5 mg tablet 5 mg PO BID 06/01/22 03/12/23 03/12/23 cholecalciferol (vitamin D3) 1,250 50,000 unit PO WE 09/28/22 03/12/23 03/11/23 mcg (50,000 unit) capsule fluticasone propionate 50 2 spray intranasal Q12 09/28/22 03/12/23 03/12/23 mcg/actuation nasal spray,suspension furosemide 20 mg tablet 20 mg PO DAILY PRN .edema 09/28/22 03/12/23 Unknown multivitamin 1 tab PO DAILY 09/28/22 03/12/23 03/11/23 ondansetron 4 mg disintegrating 8 mg translingual BID PRN Nausea 09/28/2203/11/23 tablet potassium chloride 10 mEq 10 meq PO DAILY PRN .When takes 09/28/22 03/12/23 03/11/23 capsule,extended release lasix umeclidinium 62.5 mcg-vilanterol 1 ea inhalation DAILY 09/28/22 03/12/23 03/11/23 25 mcg/actuation powdr for inhalation (Anoro Ellipta) diclofenac sodium 1 % topical gel 2 g EXT Q6H PRN back pain #100 10/03/22 03/12/23 03/11/23 (Voltaren Arthritis Pain) grams polyethylene glycol 3350 17 gram 17 g PO DAILY PRN laxative effect 10/03/22 03/12/23 Unknown oral powder packet (Miralax) #30 ea sennosides 8.6 mg-docusate sodium 1 tab PO QAM #30 tabs 10/03/22 03/12/23 03/11/23 50 mg tablet (Senokot-S) clonidine HCl 0.1 mg tablet 0.1 mg PO BID 03/12/23 03/12/23 03/11/23 hydralazine 100 mg tablet 100 mg PO BID 03/12/23 03/12/23 03/11/23 prednisone 20 mg tablet 20 mg PO DAILY 03/12/23 03/12/23 03/11/23 rosuvastatin 10 mg tablet 10 mg PO HS 03/12/23 03/12/23 03/11/23 Active Medications Generic Name Dose Route Start Last Admin Trade Name Nate PRN Reason Stop Dose Admin Felodipine 5 mg 03/12/23 13:30 03/12/23 15:01 Felodipine 5 Mg Tabcr PO 04/11/23 13:29 5 mg QAM SABAS Administration Guaifenesin 1,200 mg 03/12/23 13:44 03/12/23 15:00 Guaifenesin 600 Mg Tabcr PO 04/11/23 13:43 1,200 mg BID SABAS Administration Heparin Sodium/Dextrose 25,000 units in 500 mls @ 14 mls/hr 03/12/23 11:15 03/12/23 13:26 Heparin Sodium/Dextrose IV 04/11/23 11:14 700 units/hr .Q24H SABAS 14 mls/hr Administration Protocol 700 UNITS/HR Pantoprazole Sodium 40 mg 03/12/23 13:44 03/12/23 14:59 Pantoprazole 40 Mg Tab PO 04/11/23 13:43 40 mg BID SABAS Administration
[2023-03-12] MEDS ORDERED: ALPRAZolam 0.5 MG TABLET PO STA (10:06)
[2023-03-12 10:29] LABS: D Dimer 1250 ug/L FEU (0-500)
[2023-03-12] MEDS ORDERED: FUROSEMIDE INJ 20 MG/2 ML VIAL IV STA (10:41)
[2023-03-12] MEDS ORDERED: Heparin IV Adult Wt-Based Low-Dose *NO* INITIAL Bolus Protocol IV STA (10:45)
[2023-03-12] MEDS ORDERED: NITROGLYCERIN 2% OINTMENT 30GM TUBE EXT ONE (10:47)
--- NOTE | 2023-03-12 12:46 | Ultrasound Report ---
BILATERAL LOWER EXTREMITY VENOUS DOPPLER HISTORY: +DDimer, shortness of breath. COMPARISON STUDY: None. FINDINGS: There is normal compressibility, flow, and augmentation within the bilateral lower extremit y deep venous systems. IMPRESSION: No DVT within the right or left lower extremity. ACT 112: Negative or not required by law. Electronically signed by: Randy Waldron M.D. 03/12/2023 12:45 PM
[2023-03-12] MEDS: HEPARIN SODIUM/DEXTROSE 25,000 UNITS/500 ML BAG IV SCH (13:26)
--- NOTE | 2023-03-12 13:34 | Cardiology Consultation ---
Date of Consultation March 12, 2023 Assessment & Plan (1) Hypertensive urgency: (2) Acute on chronic respiratory failure with hypoxia and hypercapnia: (3) COPD exacerbation: (4) Elevated troponin: (5) CKD (chronic kidney disease): Plan 77-year-old female presents with acute on chronic respiratory failure most likely due to underlying COPD exacerbation. Her echocardiogram demonstrates normal left ventricular systolic function and wall motion. There is evidence of mild diastolic dysfunction and pulmonary hypertension. There were no regional wall motion abnormalities to suggest plaque rupture event or territorial myocardial ischemia. Elevated high-sensitivity troponin secondary to acute hypoxic respiratory failure and hypertensive urgency. Recommend trend cardiac enzymes x 3 sets. BNP mildly elevated in setting of acute hypoxic respiratory failure and chronic kidney disease without overt evidence of volume overload, however, trial of cautious diuretic therapy is reasonable given acute on chronic respiratory insufficiency and uncontrolled blood pressure. Monitor GFR, electrolytes, and fluid balance. Blood pressure remains elevated, however, improved since admission. Carvedilol and losartan recently discontinued contributing to current blood pressure elevation. Continue topical nitrates in addition to outpatient clonidine and hydralazine. Consider titration of clonidine to 0.2 mg twice daily. Previous intolerance to amlodipine documented secondary to "left leg pain". No edema or true allergy documented. Recommend trial of felodipine 5mg daily. Avoid beta-nilsa and/or nondihydropyridine calcium channel nilsa due to chart history of bradycardia. D-dimer elevated. No evidence of lower extremity DVT. Internal medicine considering CTA for further evaluation. History of Present Illness Reason for Consultation: Uptrending troponins, shortness of breath. Requesting Physician: Dr. Jenna Hernandez Attending Physician: Jenna Hernandez MD History of Present Illness 77-year-old female with history of severe COPD on home oxygen and poorly controlled hypertension presented to the emergency department with respiratory distress. Diagnosed with pneumonia 2 weeks ago. Treated with DuoNeb and CPAP via EMS with improvement upon arrival to the ER. Intermittent chest discomfort described as a pressure also noted. Patient states discomfort worse with cough. Notes minimal, clear sputum production. No orthopnea or PND. Denies lower extremity edema or weight gain. Significantly elevated blood pressure, 200's/100's upon arrival to the ER. Treated with IV hydralazine, topical nitrates, oral clonidine, and Xanax. Carvedilol recently discontinued due to bradycardia. Patient previously treated with losartan although this was also discontinued due to renal dysfunction. Patient seen and examined at the bedside. Denies chest discomfort at this time. No conversational dyspnea. Somewhat somnolent after receiving Xanax. No orthopnea or palpitations. Telemetry reveals sinus rhythm and sinus bradycar daxa. Denies any recent palpitations, lightheadedness, dizziness. No personal history of coronary disease or congestive heart failure. Preliminary review of bedside echocardiogram demonstrates preserved LV systolic function with normal left ventricular wall motion and mild pulmonary hypertension. Allergies Allergy/AdvReac Type Severity Reaction Status Date / Time metronidazole [From Flagyl] Allergy Severe SHORTNESS Verified 03/12/23 08:36 OF BREATH amlodipine AdvReac Intermediate left leg Verified 03/12/23 08:36 numbness cefuroxime AdvReac Intermediate Gastrointestinal Verified 03/12/23 08:36 Upset Cephalosporins AdvReac Intermediate Gastrointestinal Verified 03/12/23 08:36 Upset ciprofloxacin AdvReac Intermediate Gastrointestinal Verified 03/12/23 08:36 Upset erythromycin base AdvReac Intermediate Gastrointestinal Verified 03/12/23 08:36 Upset sulfamethoxazole AdvReac Intermediate hyperkalemi Verified 03/12/23 08:36 [From Bactrim] a trimethoprim [From Bactrim] AdvReac Intermediate hyperkalemi Verified 03/12/23 08:36 a Home Medications Medication Instructions Recorded Confirmed Type albuterol sulfate 90 mcg/actuation 2 puff inhalation DIRECTED PRN 12/21/21 03/12/23 History aerosol inhaler Shortness Of Breath alprazolam 0.5 mg tablet (Xanax) 0.25 - 0.5 mg PO BID PRN Anxiety 12/21/21 03/12/23 History loratadine 10 mg tablet (Claritin) 10 mg PO QAM 12/21/21 03/12/23 History pantoprazole 40 mg tablet,delayed 40 mg PO BID 12/21/21 03/12/23 History release (Protonix) tamsulosin 0.4 mg capsule 0.4 mg PO HS #30 caps 03/24/22 03/12/23 Rx aspirin 81 mg tablet,delayed 81 mg PO DAILY 04/01/22 03/12/23 History release escitalopram oxalate 5 mg tablet 5 mg PO DAILY 06/01/22 03/12/23 History ferrous sulfate 325 mg (65 mg 325 mg PO DAILY 06/01/22 03/12/23 History iron) tablet oxycodone 5 mg tablet 5 mg PO BID 06/01/22 03/12/23 History cholecalciferol (vitamin D3) 1,250 50,000 unit PO WE 09/28/22 03/12/23 History mcg (50,000 unit) capsule fluticasone propionate 50 2 spray intranasal Q12 09/28/22 03/12/23 History mcg/actuation nasal spray,suspension furosemide 20 mg tablet 20 mg PO DAILY PRN .edema 09/28/22 03/12/23 History multivitamin 1 tab PO DAILY 09/28/22 03/12/23 History ondansetron 4 mg disintegrating 8 mg translingual BID PRN Nausea 09/28/22 03/12/23 History tablet potassium chloride 10 mEq 10 meq PO DAILY PRN .When takes 09/28/22 03/12/23 History capsule,extended release lasix umeclidinium 62.5 mcg-vilanterol 1 ea inhalation DAILY 09/28/22 03/12/23 History 25 mcg/actuation powdr for inhalation (Anoro Ellipta) diclofenac sodium 1 % topical gel 2 g EXT Q6H PRN back pain #100 10/03/22 03/12/23 Rx (Voltaren Arthritis Pain) grams polyethylene glycol 3350 17 gram 17 g PO DAILY PRN laxative effect 10/03/22 03/12/23 Rx oral powder packet (Miralax) #30 ea sennosides 8.6 mg-docusate sodium 1 tab PO QAM #30 tabs 10/03/22 03/12/23 Rx 50 mg tablet (Senokot-S) clonidine HCl 0.1 mg tablet 0.1 mg PO BID 03/12/23 03/12/23 History hydralazine 100 mg tablet 100 mg PO BID 03/12/23 03/12/23 History prednisone 20 mg tablet 20 mg PO DAILY 03/12/23 03/12/23 History rosuvastatin 10 mg tablet 10 mg PO HS 03/12/23 03/12/23 History Patient History Medical History CKD (chronic kidney disease) stage 3, GFR 30-59 ml/min History of blood transfusion 01/08 GERD (gastroesophageal reflux disease) On home oxygen therapy 2lpm via n/c PRN Kidney stones Pancreatic cyst monitoring Congenital hip deformity bilateral Chronic pain Chronic headaches Migraine 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 Hx of hernia repair History of removal of ovarian cyst Hx of hysterectomy Hx of appendectomy Family History Mother Coronary heart disease Father Coronary heart disease Brother Diabetes Brother Coronary heart disease Other Heart disease Hypertension No family history of adverse response to anesthesia Social History Smoking Status: Current some day smoker Tobacco Type: Cigarettes Cigarettes Per Day: 2; Second Hand Exposure: No; Do You Dip or Chew Tobacco: No; Hx Alcohol Use: No Hx Substance Use: No Preferred Language: Armenian Communication Ability: Effective Visual Impairment: No Limitations Dish Technician Required: No Beliefs That Will Affect Care: None marital status: / Current Living Situation: Family Current Living Situation Comment: daughter How many Children do You have: 2 Feels Safe at Home: Yes Assistive Devices: Hospital Bed, Oxygen - Continuous, Stair Lift and Wheelchair Review of Systems Review of Systems: All systems reviewed & are unremarkable except as noted in Subjective Physical Exam Constitutional: well developed, well nourished and + obese Respiratory: no respiratory distress, no labored breathing and no retractions Auscultation: + diminished lung sounds (Bilateral.); no rales, no rhonchi and no wheezes Cardiovascular: Rate/Rhythm: regular rate and regular rhythm Heart Sounds: normal S1, normal S2 and + murmur (2/6 mid peaking medium pitched systolic ejection murmur); no cardiac rub Vessels: radial pulses present; no JVD Extremities: no edema Gastrointestinal (Abdomen): Inspection/Auscultation: normal bowel sounds; abdomen not distended Percussion/Palpation: abdomen soft; abdomen nontender, no guarding and abdomen not rigid Neurologic: CN's II-XI intact bilaterally and moves all extremities Results & Data Vital Signs (Past 12 Hours) Vital Signs Temp Pulse Pulse Resp BP BP Pulse Ox 03/12/23 13:06 36.5 C 56 L 20 171/65 H 97 03/12/23 11:58 167/68 H 03/12/23 11:58 99 03/12/23 11:30 60 14 99 03/12/23 11:00 185/86 H 03/12/23 11:00 60 26 H 99 03/12/23 10:58 168/65 H 03/12/23 10:58 61 16 03/12/23 10:30 63 31 H 99 03/12/23 10:15 68 26 H 200/118 H 99 03/12/23 10:11 200/118 H 03/12/23 10:11 64 18 99 03/12/23 10:00 67 18 99 03/12/23 09:30 59 L 21 100 03/12/23 09:00 62 19 100 03/12/23 08:37 209/84 H 03/12/23 08:37 60 19 100 03/12/23 08:35 87 L 03/12/23 08:33 59 L 24 213/86 H 98 03/12/23 08:30 59 L 18 100 03/12/23 08:22 55 L 03/12/23 08:07 213/86 H 03/12/23 08:07 72 31 H 97 03/12/23 08:01 66 30 H 99 03/12/23 07:38 36.9 C 59 L 22 183/82 H 87 L O2 Del Method O2 Flow Rate 03/12/23 13:06 Room Air 03/12/23 11:58 03/12/23 11:58 03/12/23 11:30 03/12/23 11:00 03/12/23 11:00 03/12/23 10:58 03/12/23 10:58 03/12/23 10:30 03/12/23 10:15 Nasal Cannula 5 03/12/23 10:11 03/12/23 10:11 03/12/23 10:00 03/12/23 09:30 03/12/23 09:00 03/12/23 08:37 03/12/23 08:37 03/12/23 08:35 Nasal Cannula 3 03/12/23 08:33 Nasal Cannula 5 03/12/23 08:30 03/12/23 08:22 03/12/23 08:07 03/12/23 08:07 03/12/23 08:01 03/12/23 07:38 Nasal Cannula 3 Laboratory Results Cardiac Enzymes 03/12/23 03/12/23 03/12/23 Range/Units 07:40 07:46 09:39 AST 20 (13-39) U/L Troponin I High Sens 59.1 H* 85.7 H* D (0-14) pg/ml B-Natriuretic Peptide 421 H (0-100) pg/ml Coagulation 03/12/23 03/12/23 Range/Units 07:40 07:46 PT 10.5 (9.0-12.0) Seconds APTT 21 (21-31) Seconds B-Natriuretic Peptide 421 H (0-100) pg/ml CBC 03/12/23 Range/Units 07:46 WBC 12.51 H (4.8-10.8) K/ul RBC 3.72 L (4.20-5.40) M/uL Hgb 10.4 L (12.0-16.0) g/dl Hct 34.0 L (37.0-47.0) % Plt Count 219 (130-400) K/uL Neut # (Auto) 9.41 H (1.40-6.50) K/uL Lymph # (Auto) 1.64 (1.20-3.40) K/uL [place] # (Auto) 0.91 H (0.11-0.59) K/uL Eos # (Auto) 0.34 (0.00-0.50) K/uL Baso # (Auto) 0.03 (0.00-0.20) K/uL Comprehensive Metabolic Panel 03/12/23 Range/Units 07:46 Sodium 141 (136-145) mmol/L Potassium 4.2 (3.5-5.1) mmol/L Chloride 101 (98-107) mmol/L Carbon Dioxide 36 H (21-32) mmol/L BUN 34 H (6-23) mg/dl Creatinine 1.30 H (0.6-1.2) mg/dl Glucose 94 (70-99(Fasting)) mg/dl Calcium 9.5 (8.6-10.3) mg/dl Direct Bilirubin 0.0 (0-0.2) mg/dl AST 20 (13-39) U/L ALT 21 (7-52) U/L Alkaline Phosphatase 41 (34-104) U/L Total Protein 6.8 (6.0-8.3) gm/dl Albumin 3.8 (3.4-5.0) gm/dl Intake and Output 03/11/23 03/12/23 03/12/23 22:59 06:59 14:59 Output Total 300 / 300 Balance -300 / -300 Output: Urine 300 / 300 Other: Weight 71.4 kg Weight Measurement Method Built in [facility] Patient Weight 03/13/23 06:59 Weight 71.4 kg ECG Additional Comments: ECG: Normal sinus rhythm with nonspecific ST-T wave abnormality. No significant change when compared to prior ECG, however, T wave inversion now noted in V1 and V2.
[2023-03-12] MEDS ORDERED: ALBUTEROL HFA 8 GM INHALER INH PRN (13:44)
[2023-03-12] MEDS ORDERED: ACETAMINOPHEN 325 MG TAB PO PRN (13:44)
[2023-03-12] MEDS ORDERED: FLUTICASONE/VILANTEROL 100/25MCG 14 PUFFS/INHALER INH SCH (13:44)
[2023-03-12] MEDS ORDERED: DICLOFENAC SOD 1% GEL 100 GM TUBE EXT PRN (13:44)
[2023-03-12] MEDS ORDERED: ALBUT/IPRATROP 3MG/0.5MG NEB 3 ML VIAL NEB PRN (13:44)
[2023-03-12] MEDS ORDERED: POLYETHYLENE (MIRALAX) 17 GM PACK PO PRN (13:44)
[2023-03-12] MEDS: PANTOprazole 40 MG TAB PO SCH ×2 (14:59→20:15)
[2023-03-12] MEDS: guaiFENesin 600 MG TABCR PO SCH ×2 (15:00→21:24)
[2023-03-12] MEDS: FELODIPINE 5 MG TABCR PO SCH (15:01)
[2023-03-12] MEDS ORDERED: AMPICILLIN SOD/SULBACTAM SOD 3 GM VIAL IV SCH (17:15)
[2023-03-12] MEDS: hydrALAZINE TAB 50 MG TAB PO SCH ×2 (17:42→20:14)
[2023-03-12] MEDS: UNASYN 3000MG / NS q6h IV SCH (19:28)
[2023-03-12 19:32] LABS: ANTI-Xa, UFH(UnfractionatedHep 0.21 IU/ml (0.3-0.7)
[2023-03-12] MEDS: FLUTICASONE PROPIONATE NA SPR 16 GM BTL NAE SCH (20:12)
[2023-03-12] MEDS: cloNIDine HCL 0.1 MG TAB PO SCH (20:12)
[2023-03-12] MEDS: TAMSULOSIN HCL 0.4 MG CAP PO SCH (20:14)
[2023-03-12] MEDS: ROSUVASTATIN CALCIUM 10 MG TAB PO SCH (20:14)
[2023-03-12] MEDS: oxyCODONE HCL IR 5 MG TAB (IMMEDIATE RELEASE) PO SCH (20:18)
[2023-03-12] MEDS ORDERED: hydrALAZINE TAB 50 MG TAB PO SCH (21:00)
[2023-03-12] MEDS: ALPRAZolam 0.5 MG TABLET PO PRN (21:24)
[2023-03-13] MEDS: UNASYN 3000MG / NS q6h IV SCH ×4 (00:23→17:12)
[2023-03-13 02:40] LABS: ANTI-Xa, UFH(UnfractionatedHep 0.48 IU/ml (0.3-0.7)
--- NOTE | 2023-03-13 06:27 | Electrocardiogram Report ---
Test Reason : Blood Pressure : / mmHG Vent. Rate : 059 BPM Atrial Rate : 059 BPM P-R Int : 164 ms QRS Dur : 082 ms QT Int : 442 ms P-R-T Axes : -09 033 100 degrees QTc Int : 437 ms Sinus bradycardia Nonspecific ST and T wave abnormality Abnormal ECG When compared with ECG of 29-SEP-2022 05:35, T wave inversion now evident in Anterior leads Confirmed by Fish Avelar ([id number]) on 03/13/2023 6:26:49 AM Referred By: REFERRED SELF Confirmed By:Fish Avelar
--- NOTE | 2023-03-13 06:34 | Electrocardiogram Report ---
Test Reason : Blood Pressure : / mmHG Vent. Rate : 061 BPM Atrial Rate : 061 BPM P-R Int : 164 ms QRS Dur : 090 ms QT Int : 446 ms P-R-T Axes : 090 031 078 degrees QTc Int : 448 ms Normal sinus rhythm Nonspecific ST abnormality Abnormal ECG When compared with ECG of 12-MAR-2023 07:34, (unconfirmed) No significant change was found Confirmed by Fish Avelar ([id number]) on 03/13/2023 6:34:12 AM Referred By: REFERRED SELF Confirmed By:Fish Avelar
--- NOTE | 2023-03-13 07:15 | Cardiology Progress Note ---
Date of Service March 13, 2023 Assessment & Plan (1) Hypertensive urgency: (2) Acute on chronic respiratory failure with hypoxia and hypercapnia: (3) COPD exacerbation: (4) Elevated troponin: (5) CKD (chronic kidney disease): Plan 77-year-old female presents with acute on chronic respiratory failure most likely due to underlying COPD exacerbation. Her echocardiogram demonstrates normal left ventricular systolic function and wall motion. There is evidence of mild diastolic dysfunction and pulmonary hypertension. There were no regional wall motion abnormalities to suggest plaque rupture event or territorial myocardial ischemia. Elevated high-sensitivity troponin secondary to acute hypoxic respiratory failure and hypertensive urgency. Recommend trend cardiac enzymes x 3 sets. BNP mildly elevated in setting of acute hypoxic respiratory failure and chronic kidney disease without overt evidence of volume overload, however, trial of cautious diuretic therapy is reasonable given acute on chronic respiratory insufficiency and uncontrolled blood pressure. Monitor GFR, electrolytes, and fluid balance. Blood pressure remains elevated, however, improved since admission. Carvedilol and losartan recently discontinued contributing to current blood pressure el evation. Continue topical nitrates in addition to outpatient clonidine and hydralazine. Consider titration of clonidine to 0.2 mg twice daily. Previous intolerance to amlodipine documented secondary to "left leg pain". No edema or true allergy documented. Recommend trial of felodipine 5mg daily. Avoid beta-nilsa and/or nondihydropyridine calcium channel nilsa due to chart history of bradycardia. D-dimer elevated. No evidence of lower extremity DVT. Internal medicine considering CTA for further evaluation. 03/13/2023 Patient clinically improved after multifactorial approach. Blood pressure is now improved with addition of felodipine Respiratory status less challenging. Mild diuresis appears also given helpful Would switch IV furosemide to daily furosemide 20 mg daily Continue antihypertensive regimen Troponins appear elevated secondary to acute demands of respiratory distress. No findings to suggest acute coronary syndrome From cardiac standpoint would continue IV heparin additional 24 hours Admission and Anticipated Discharge Date Admission Date: March 12, 2023 Subjective Patient was seen and examined, chart, telemetry reviewed. No acute issues overnight Respiratory status slightly improved per patient no cough no fevers or chills Blood pressure much better controlled this morning. Weight down 1 kg overnight Oxygenating well on usual O2 supplement Physical Exam Constitutional: well developed, well nourished and + obese Respiratory: no respiratory distress, no labored breathing and no retractions Auscultation: + diminished lung sounds (Bilateral.); no rales, no rhonchi and no wheezes Cardiovascular: Rate/Rhythm: regular rate and regular rhythm Heart Sounds: normal S1, normal S2 and + murmur (2/6 mid peaking medium pitched systolic ejection murmur); no cardiac rub Vessels: radial pulses present; no JVD Extremities: no edema Gastrointestinal (Abdomen): Inspection/Auscultation: normal bowel sounds; abdomen not distended Percussion/Palpation: abdomen soft; abdomen nontender, no guarding and abdomen not rigid Neurologic: CN's II-XI intact bilaterally and moves all extremities Results & Data Vital Signs (Past 12 Hours) Vital Signs Temp Pulse Pulse Resp BP Pulse Ox O2 Del Method 03/13/23 03:00 36.7 C 55 L 21 110/42 L 98 CPAP 03/13/23 02:45 63 22 95 03/12/23 23:24 37.4 C 57 L 18 107/49 L 97 CPAP 03/12/23 22:47 55 L 19 91 03/12/23 22:00 56 L 03/12/23 22:00 Nasal Cannula, BiPAP 03/12/23 19:43 37.4 C 64 20 162/65 H 94 Room Air O2 Flow Rate 03/13/23 03:00 03/13/23 02:45 4 03/12/23 23:24 03/12/23 22:47 4 03/12/23 22:00 03/12/23 22:00 4 03/12/23 19:43 4 Laboratory Results Laboratory Results - last 24 hr 03/12/23 03/12/23 03/12/23 07:40 07:46 07:47 WBC 12.51 H RBC 3.72 L Hgb 10.4 L Hct 34.0 L MCV 91.4 MCH 28.0 MCHC 30.6 L RDW Std Deviation 43.8 RDW Coeff of [place] 13.3 Plt Count 219 MPV 10.6 Immature Gran % (Auto) 1.4 Neut % (Auto) 75.3 Lymph % (Auto) 13.1 [place] % (Auto) 7.3 Eos % (Auto) 2.7 Baso % (Auto) 0.2 Neut # (Auto) 9.41 H Lymph # (Auto) 1.64 [place] # (Auto) 0.91 H Eos # (Auto) 0.34 Baso # (Auto) 0.03 Immature Gran # (Auto) 0.18 PT 10.5 INR 1.0 APTT 21 PTT Ratio 0.7 D-Dimer Heparin Anti-Xa, Unfract VBG pH VBG pCO2 VBG pO2 VBG HCO3 VBG O2 Saturation VBG Base Excess Sodium 141 Potassium 4.2 Chloride 101 Carbon Dioxide 36 H Anion Gap 4 BUN 34 H Creatinine 1.30 H Est Cr Clr Drug Dosing 32.2 Est GFR ( Amer) 45.5 Est GFR (Non-Af Amer) 39.3 BUN/Creatinine Ratio 26.2 H Glucose 94 POC Glucose Lactate 1.3 Calcium 9.5 Phosphorus Magnesium 1.8 Total Bilirubin 0.4 Direct Bilirubin 0.0 AST 20 ALT 21 Alkaline Phosphatase 41 Troponin I High Sens 59.1 H* B-Natriuretic Peptide 421 H Total Protein 6.8 Albumin 3.8 Globulin Albumin/Globulin Ratio Procalcitonin 0.21 Urine Color Urine Appearance Urine pH Ur Specific [place] Urine Protein Urine Glucose (UA) Urine Ketones Urine Blood Urine Nitrite Urine Bilirubin Urine Urobilinogen Ur Leukocyte Esterase Urine WBC (Auto) Urine RBC (Auto) U Hyaline Cast (Auto) U Epithel Cells (Auto) Urine Bacteria (Auto) SARS-CoV-2 (PCR) NEGATIVE Hepatitis C Ab (EIA) Influenza Type A (PCR) Negative Influenza Type B (PCR) Negative RSV (RT-PCR) Negative 03/12/23 03/12/23 03/12/23 08:00 08:10 09:39 WBC RBC Hgb Hct MCV MCH MCHC RDW Std Deviation RDW Coeff of [place] Plt Count MPV Immature Gran % (Auto) Neut % (Auto) Lymph % (Auto) [place] % (Auto) Eos % (Auto) Baso % (Auto) Neut # (Auto) Lymph # (Auto) [place] # (Auto) Eos # (Auto) Baso # (Auto) Immature Gran # (Auto) PT INR APTT PTT Ratio D-Dimer 1250 H* Heparin Anti-Xa, Unfract VBG pH 7.33 L VBG pCO2 67 H VBG pO2 25 VBG HCO3 35 VBG O2 Saturation < 60.0 VBG Base Excess 7.0 Sodium Potassium Chloride Carbon Dioxide Anion Gap BUN Creatinine Est Cr Clr Drug Dosing Est GFR ( Amer) Est GFR (Non-Af Amer) BUN/Creatinine Ratio Glucose POC Glucose Lactate Calcium Phosphorus Magnesium Total Bilirubin Direct Bilirubin AST ALT Alkaline Phosphatase Troponin I High Sens 85.7 H* D B-Natriuretic Peptide Total Protein Albumin Globulin Albumin/Globulin Ratio Procalcitonin Urine Color Yellow Urine Appearance Cloudy A Urine pH 6.0 Ur Specific [place] 1.014 Urine Protein 2+ H Urine Glucose (UA) Negative Urine Ketones Negative Urine Blood Negative Urine Nitrite Negative Urine Bilirubin Negative Urine Urobilinogen Negative Ur Leukocyte Esterase 1+ H Urine WBC (Auto) >30 H Urine RBC (Auto) 0-4 U Hyaline Cast (Auto) 1-5 U Epithel Cells (Auto) >30 H Urine Bacteria (Auto) Negative SARS-CoV-2 (PCR) Hepatitis C Ab (EIA) Influenza Type A (PCR) Influenza Type B (PCR) RSV (RT-PCR) 03/12/23 03/12/23 03/12/23 15:42 16:55 18:44 WBC RBC Hgb Hct MCV MCH MCHC RDW Std Deviation RDW Coeff of [place] Plt Count MPV Immature Gran % (Auto) Neut % (Auto) Lymph % (Auto) [place] % (Auto) Eos % (Auto) Baso % (Auto) Neut # (Auto) Lymph # (Auto) [place] # (Auto) Eos # (Auto) Baso # (Auto) Immature Gran # (Auto) PT INR APTT PTT Ratio D-Dimer Heparin Anti-Xa, Unfract 0.21 L VBG pH VBG pCO2 VBG pO2 VBG HCO3 VBG O2 Saturation VBG Base Excess Sodium Potassium Chloride Carbon Dioxide Anion Gap BUN Creatinine Est Cr Clr Drug Dosing Est GFR ( Amer) Est GFR (Non-Af Amer) BUN/Creatinine Ratio Glucose POC Glucose 169 H Lactate Calcium Phosphorus Magnesium Total Bilirubin Direct Bilirubin AST ALT Alkaline Phosphatase Troponin I High Sens 104.7 H* D B-Natriuretic Peptide Total Protein Albumin Globulin Albumin/Globulin Ratio Procalcitonin Urine Color Urine Appearance Urine pH Ur Specific [place] Urine Protein Urine Glucose (UA) Urine Ketones Urine Blood Urine Nitrite Urine Bilirubin Urine Urobilinogen Ur Leukocyte Esterase Urine WBC (Auto) Urine RBC (Auto) U Hyaline Cast (Auto) U Epithel Cells (Auto) Urine Bacteria (Auto) SARS-CoV-2 (PCR) Hepatitis C Ab (EIA) Influenza Type A (PCR) Influenza Type B (PCR) RSV (RT-PCR) 03/12/23 03/12/23 03/13/23 19:47 21:22 01:58 WBC RBC Hgb Hct MCV MCH MCHC RDW Std Deviation RDW Coeff of [place] Plt Count MPV Immature Gran % (Auto) Neut % (Auto) Lymph % (Auto) [place] % (Auto) Eos % (Auto) Baso % (Auto) Neut # (Auto) Lymph # (Auto) [place] # (Auto) Eos # (Auto) Baso # (Auto) Immature Gran # (Auto) PT INR APTT PTT Ratio D-Dimer Heparin Anti-Xa, Unfract 0.48 VBG pH VBG pCO2 VBG pO2 VBG HCO3 VBG O2 Saturation VBG Base Excess Sodium Potassium Chloride Carbon Dioxide Anion Gap BUN Creatinine Est Cr Clr Drug Dosing Est GFR ( Amer) Est GFR (Non-Af Amer) BUN/Creatinine Ratio Glucose POC Glucose 215 H Lactate Calcium Phosphorus Magnesium Total Bilirubin Direct Bilirubin AST ALT Alkaline Phosphatase Troponin I High Sens 59.5 H* D B-Natriuretic Peptide Total Protein Albumin Globulin Albumin/Globulin Ratio Procalcitonin Urine Color Urine Appearance Urine pH Ur Specific [place] Urine Protein Urine Glucose (UA) Urine Ketones Urine Blood Urine Nitrite Urine Bilirubin Urine Urobilinogen Ur Leukocyte Esterase Urine WBC (Auto) Urine RBC (Auto) U Hyaline Cast (Auto) U Epithel Cells (Auto) Urine Bacteria (Auto) SARS-CoV-2 (PCR) Hepatitis C Ab (EIA) Influenza Type A (PCR) Influenza Type B (PCR) RSV (RT-PCR) 03/13/23 06:49 WBC Pending RBC Pending Hgb Pending Hct Pending MCV Pending MCH Pending MCHC Pending RDW Std Deviation RDW Coeff of [place] Plt Count Pending MPV Immature Gran % (Auto) Neut % (Auto) Lymph % (Auto) [place] % (Auto) Eos % (Auto) Baso % (Auto) Neut # (Auto) Lymph # (Auto) [place] # (Auto) Eos # (Auto) Baso # (Auto) Immature Gran # (Auto) PT INR APTT PTT Ratio D-Dimer Heparin Anti-Xa, Unfract VBG pH VBG pCO2 VBG pO2 VBG HCO3 VBG O2 Saturation VBG Base Excess Sodium Pending Potassium Pending Chloride Pending Carbon Dioxide Pending Anion Gap Pending BUN Pending Creatinine Pending Est Cr Clr Drug Dosing Pending Est GFR ( Amer) Pending Est GFR (Non-Af Amer) Pending BUN/Creatinine Ratio Pending Glucose Pending POC Glucose Lactate Calcium Pending Phosphorus Pending Magnesium Pending Total Bilirubin Pending Direct Bilirubin AST Pending ALT Pending Alkaline Phosphatase Pending Troponin I High Sens B-Natriuretic Peptide Total Protein Pending Albumin Pending Globulin Pending Albumin/Globulin Ratio Pending Procalcitonin Urine Color Urine Appearance Urine pH Ur Specific [place] Urine Protein Urine Glucose (UA) Urine Ketones Urine Blood Urine Nitrite Urine Bilirubin Urine Urobilinogen Ur Leukocyte Esterase Urine WBC (Auto) Urine RBC (Auto) U Hyaline Cast (Auto) U Epithel Cells (Auto) Urine Bacteria (Auto) SARS-CoV-2 (PCR) Hepatitis C Ab (EIA) Pending Influenza Type A (PCR) Influenza Type B (PCR) RSV (RT-PCR)
[2023-03-13 07:17] LABS: Hematocrit (blood only) 26.6 % (37.0-47.0); Hemoglobin 8.2 g/dl (12.0-16.0); Mean Corpuscular Hgb Conc 30.8 g/dL (32.0-36.0); Mean Corpuscular Volume 90.8 fL (80.0-100.0); Mean Platelet Volume 10.4 fL (9.4-12.4); Platelet Count 178 K/uL (130-400); RDW Coefficient of Variation 13.3 % (11.5-14.5); Red Blood Count 2.93 M/uL (4.20-5.40)
[2023-03-13 07:41] LABS: Albumin Globulin Ratio 1.3 (0.9-2); Albumin Level 3.1 gm/dl (3.4-5.0); BUN Creatinine Ratio 22.8 (10-20); Bilirubin,Total 0.3 mg/dl (0.2-1.0); Calcium 8.7 mg/dl (8.6-10.3); Creatinine Clr Calc Pharmacy 24.3 ml/min; Est GFR (African American) 32.7 ml/min; Est GFR (Non-African American) 28.2 ml/min; Globulin 2.4 gm/dl (2.5-4.0); Magnesium 1.8 mg/dl (1.7-2.4); Phosphorus 4.1 mg/dl (2.5-4.9); Potassium 4.1 mmol/L (3.5-5.1); Total Protein 5.5 gm/dl (6.0-8.3)
[2023-03-13] MEDS ORDERED: FUROSEMIDE INJ 20 MG/2 ML VIAL IV SCH (09:00)
[2023-03-13] MEDS: FLUTICASONE PROPIONATE NA SPR 16 GM BTL NAE SCH ×2 (09:23→20:35)
[2023-03-13] MEDS: guaiFENesin 600 MG TABCR PO SCH ×2 (09:23→20:35)
[2023-03-13] MEDS: predniSONE 20 MG TAB PO SCH (09:24)
[2023-03-13] MEDS: FELODIPINE 5 MG TABCR PO SCH (09:24)
[2023-03-13] MEDS: FERROUS SULFATE 325 MG TAB PO SCH (09:24)
[2023-03-13] MEDS: DOCUSATE SODIUM/SENNA 50/8.6MG TAB PO SCH (09:25)
[2023-03-13] MEDS: LORATADINE 10 MG TAB PO SCH (09:25)
[2023-03-13] MEDS: PANTOprazole 40 MG TAB PO SCH ×2 (09:26→20:36)
[2023-03-13] MEDS: MULTIVITAMIN TAB PO SCH (09:26)
[2023-03-13] MEDS: hydrALAZINE TAB 50 MG TAB PO SCH ×3 (09:26→20:38)
[2023-03-13] MEDS: ASPIRIN 81 MG ECTAB PO SCH (09:27)
[2023-03-13] MEDS: cloNIDine HCL 0.1 MG TAB PO SCH ×2 (09:27→20:37)
[2023-03-13] MEDS: ESCITALOPRAM OXALATE 10 MG TAB PO SCH (09:27)
[2023-03-13] MEDS: UMECLIDINIUM/VILANTEROL 62.5/25MCG 7 PUFFS/INHALER INH SCH (09:29)
[2023-03-13] MEDS: FLUTICASONE FUROATE 100MCG 14 PUFFS/INHALER INH SCH (09:29)
[2023-03-13] MEDS: oxyCODONE HCL IR 5 MG TAB (IMMEDIATE RELEASE) PO SCH (09:29)
[2023-03-13 11:14] LABS: A calco-baum cmplx NotReported Not Detected (NotDetected); Bact fragilis Not Reported Not Detected (NotDetected); Blood Culture Id Panel See PCR Comment (NotDetected); C auris Not Reported Not Detected (NotDetected); Calbicans Not Reported Not Detected (NotDetected); Candida glabrata Not Reported Not Detected (NotDetected); Candida krusei Not Reported Not Detected (NotDetected); Cneoformans/gatti Not Reported Not Detected (NotDetected); Cparapsilosis Not Reported Not Detected (NotDetected); E cloacae compx Not Reported Not Detected (NotDetected); Efaecalis Not Reported Not Detected (NotDetected); Efaecium Not Reported Not Detected (NotDetected); Enterobacterales Not Reported Not Detected (NotDetected); Escherichia coli Not Reported Not Detected (NotDetected); H influenzae Not Reported Not Detected (NotDetected); K aerogenes Not Reported Not Detected (NotDetected); Koxytoca Not Reported Not Detected (NotDetected); Kpneumoniae grp Not Reported Not Detected (NotDetected); Lmonocyt Not Reported Not Detected (NotDetected); N meningitidis Not Reported Not Detected (NotDetected); P aeruginosa Not Reported Not Detected (NotDetected); Proteus spp Not Reported Not Detected (NotDetected); Salmonella spp Not Reported Not Detected (NotDetected); Smarcescens Not Reported Not Detected (NotDetected); Staph lugdunensis Not Reported Not Detected (NotDetected); Staph spp. Not Reported DETECTED (NotDetected); Staphaureus Not Reported Not Detected (NotDetected); Staphepi Not Reported DETECTED (NotDetected); Staphylococcus spp. DETECTED (NotDetected); Stenmaltophilia Not Reported Not Detected (NotDetected); Strep agal(GrpB) Not Reported Not Detected (NotDetected); Strep pneum Not Reported Not Detected (NotDetected); Strep pyog (GrpA) Not Reported Not Detected (NotDetected); Strep spp Not Reported Not Detected (NotDetected); mecAC Resistant Gene DETECTED (NotDetected)
[2023-03-13 11:23] LABS: Staphylococcus epidermidis DETECTED (NotDetected)
--- NOTE | 2023-03-13 11:36 | Hospitalist Progress Note ---
Date of Service March 13, 2023 Assessment & Plan (1) Acute on chronic respiratory failure with hypoxia and hypercapnia: (2) COPD exacerbation: (3) Acute heart failure with preserved ejection fraction (HFpEF): Plan Ms. Dewey is a 77-year-old woman who has significant past medical history of chronic hypoxic respiratory failure on 2-3 L of oxygen, COPD, HTN, HLD, CKD-3b, gastritis, GERD, IBS, history of E. coli UTI, depression with anxiety, history of tobacco abuse and wheelchair-bound status 2/2 congenital hip dysplasia s/p multiple surgies, as well as chronic opioid use who presents to [facility] due to progressive SOB despite ongoing antibiotics and prednisone taper. #Acute on chronic respiratory failure with hypoxia, hypercapnia, multifactorial # COPD exacerbation # Acute on chronic diastolic heart failure Recently hospitalized at [facility] 3 weeks ago, with subsequent stay at [facility]--completed 5 days IV abx at [facility] as well as, doxy course/long steroid taper at [facility]. Presents with shortness of breath. Chest x-ray personally reviewed; increased vascular congestion. BNP 457, D-dimer elevated to 1250 Venous duplexnegative for DVT Blood culture on admission1/2 bottles positive for Staph epidermidis Currently on heparin drip; will obtain VQ scan as patient has CKD and unable to go CTA chest. Low likelihood of PE given remarkable improvement with DuoNebs and steroids. D-dimer likely elevated secondary to NANCY, COPD exacerbation. On IV Lasix of 10 mg once a day; plan to switch over to 20 mg once a day at discharge. Continue on IV Unasyn; plan to treat for 5 to 7 days. Continue on prednisone for 5 days Obtain repeat blood culture #Hypertensive Urgency #Elevated Troponin, like demand iso hypertension #Asymptomatic Bradycardia High sensitive troponin 59; up trended to 104 and down trended. -ECHO with EF 65%, with mild concentric LVH. -Recentylt discontinued Coreg 12.5mg 2/2 bradycardia, Losartan discontinued at other admission -Home regimen: hydralazine 100mg BID, clonidine 0.1 BID Lasix and felodipine added. History of bradycardia; unable to tolerate increased dosing of clonidine or beta-nilsa Continue to monitor CKD IIIb -stable; consider risk/benefits of contrast use HLD Continue home ASA and rosuvastatin Allergic rhinitis -Continue home flonase and loratadine Depression Anxiety -Continue home lexapro -Continue home xanax bid prn Chronic iron deficiency anemia -stable hgb -Continue home iron supplementation GERD -Continue protonix bid Nephrolithiasis c/b hydronephrosis s/p stenting 2021 -continue home tamsulosin 0.4 mg qhs Chronic pain on chronic opioids Congential Hip dysplasia s/p multiple Burning mouth syndrome - Continue home Oxy 5 BID -Senakot scheduled, miralaz prn DVT heparin ggt Diet HH Admit PCU/tele Time spent evaluating patient, direct bedside care, chart review, placing orders, interpretation of diagnostic studies, discussion with consultants, patient, and family members, as well as other required patient management activities is 50-minute Please note the above document was generated using voice recognition software. It may contain grammatical, syntax or spelling errors. Any formal questions or concerns about the content, text or information contained within the body of this dictation should be directly addressed to the provider for clarification Admission and Anticipated Discharge Date Admission Date: March 12, 2023 Subjective Patient seen and examined at bedside. She reports improvement from her symptoms yesterday. Review of Systems Review of Systems: All systems reviewed & are unremarkable except as noted in Subjective Physical Exam Physical Exam: Constitutional: Awake, alert oriented x 3; not in distress. Respiratory: Occasional wheeze heard. Cardiovascular: RRR, no murmur, no edema Vessels: no JVD or carotid bruit Chest: normal inspection of chest Abdomen: Soft, nontender. Musculoskeletal: no cyanosis or clubbing, extremities motor strength 5/5. No pitting edema Skin: no rashes, warm and dry normal turgor Neurologic: moves all extremities; grossly intact. Results & Data Results & Data Vital Signs (Past 12 Hours) Vital Signs Temp Pulse Pulse Resp BP Pulse Ox O2 Del Method 03/13/23 08:09 36.6 C 60 21 138/54 L 98 Nasal Cannula 03/13/23 03:00 36.7 C 55 L 21 110/42 L 98 CPAP 03/13/23 02:45 63 22 95 O2 Flow Rate 03/13/23 08:09 03/13/23 03:00 03/13/23 02:45 4
[2023-03-13] MEDS: ALBUT/IPRATROP 3MG/0.5MG NEB 3 ML VIAL NEB SCH ×2 (12:40→19:40)
[2023-03-13] MEDS: ALPRAZolam 0.5 MG TABLET PO PRN ×2 (14:09→22:38)
[2023-03-13] MEDS: oxyCODONE HCL IR 5 MG TAB (IMMEDIATE RELEASE) PO PRN (17:12)
[2023-03-13] MEDS: HEPARIN SODIUM/DEXTROSE 25,000 UNITS/500 ML BAG IV SCH ×2 (19:19→23:40)
[2023-03-13] MEDS: ROSUVASTATIN CALCIUM 10 MG TAB PO SCH (20:36)
[2023-03-13] MEDS: TAMSULOSIN HCL 0.4 MG CAP PO SCH (20:38)
[2023-03-14] MEDS: ALBUT/IPRATROP 3MG/0.5MG NEB 3 ML VIAL NEB SCH ×4 (00:59→19:31)
[2023-03-14] MEDS: oxyCODONE HCL IR 5 MG TAB (IMMEDIATE RELEASE) PO PRN ×3 (03:46→16:18)
[2023-03-14] MEDS: UNASYN 3000MG / NS q6h IV SCH ×2 (04:37→17:41)
[2023-03-14 05:55] LABS: Basophils # (auto) 0.01 K/uL (0.00-0.20); Basophils % (auto) 0.1 %; Eosinophils # (auto) 0.04 K/uL (0.00-0.50); Eosinophils % (auto) 0.6 %; Hematocrit (blood only) 25.6 % (37.0-47.0); Hemoglobin 8.1 g/dl (12.0-16.0); Immature Granulocytes # (auto) 0.04 K/uL (0.01-0.20); Immature Granulocytes % (auto) 0.6 %; Lymphocytes # (auto) 1.15 K/uL (1.20-3.40); Lymphocytes % (auto) 16.4 %; Mean Corpuscular Hemoglobin 28.2 pg (25.0-34.0); Mean Corpuscular Hgb Conc 31.6 g/dL (32.0-36.0); Mean Corpuscular Volume 89.2 fL (80.0-100.0); Monocytes # (auto) 0.64 K/uL (0.11-0.59); Monocytes % (auto) 9.1 %; Neutrophils # (auto) 5.13 K/uL (1.40-6.50); Neutrophils % (auto) 73.2 %; Platelet Count 158 K/uL (130-400); RDW Coefficient of Variation 13.3 % (11.5-14.5); RDW Standard Deviation 43.9 fL (36.4-46.3); Red Blood Count 2.87 M/uL (4.20-5.40); White Blood Count 7.01 K/ul (4.8-10.8)
[2023-03-14 06:13] LABS: Albumin Globulin Ratio 1.2 (0.9-2); BUN Creatinine Ratio 24.6 (10-20); Bilirubin,Total 0.2 mg/dl (0.2-1.0); Calcium 8.5 mg/dl (8.6-10.3); Creatinine Clr Calc Pharmacy 21.9 ml/min; Est GFR (African American) 29.3 ml/min; Est GFR (Non-African American) 25.3 ml/min; Globulin 2.5 gm/dl (2.5-4.0); Potassium 3.6 mmol/L (3.5-5.1); Total Protein 5.5 gm/dl (6.0-8.3)
[2023-03-14 06:38] LABS: ANTI-Xa, UFH(UnfractionatedHep 0.54 IU/ml (0.3-0.7)
[2023-03-14] MEDS: FLUTICASONE PROPIONATE NA SPR 16 GM BTL NAE SCH ×2 (09:50→21:03)
[2023-03-14] MEDS: guaiFENesin 600 MG TABCR PO SCH ×2 (09:51→21:03)
[2023-03-14] MEDS: LORATADINE 10 MG TAB PO SCH (09:51)
[2023-03-14] MEDS: FUROSEMIDE 20 MG TAB PO SCH (09:51)
[2023-03-14] MEDS: PANTOprazole 40 MG TAB PO SCH ×2 (09:51→21:04)
[2023-03-14] MEDS: cloNIDine HCL 0.1 MG TAB PO SCH ×2 (09:51→21:04)
[2023-03-14] MEDS: FERROUS SULFATE 325 MG TAB PO SCH (09:51)
[2023-03-14] MEDS: FELODIPINE 5 MG TABCR PO SCH (09:52)
[2023-03-14] MEDS: DOCUSATE SODIUM/SENNA 50/8.6MG TAB PO SCH (09:52)
[2023-03-14] MEDS: hydrALAZINE TAB 50 MG TAB PO SCH ×3 (09:52→21:04)
[2023-03-14] MEDS: ASPIRIN 81 MG ECTAB PO SCH (09:52)
[2023-03-14] MEDS: ESCITALOPRAM OXALATE 10 MG TAB PO SCH (09:52)
[2023-03-14] MEDS: predniSONE 20 MG TAB PO SCH (09:53)
[2023-03-14] MEDS: FLUTICASONE FUROATE 100MCG 14 PUFFS/INHALER INH SCH (09:53)
[2023-03-14] MEDS: UMECLIDINIUM/VILANTEROL 62.5/25MCG 7 PUFFS/INHALER INH SCH (09:53)
[2023-03-14] MEDS: MULTIVITAMIN TAB PO SCH (09:53)
--- NOTE | 2023-03-14 10:15 | Nuclear Medicine Report ---
NM pul perfusion HISTORY: 77 years-old Female NANCY, unable to ct angio acute kidney injury with history of pulmonary a rterial hypertension and hypoxia. COMPARISON: Chest radiograph 03/12/2023, duplex Doppler study 03/12/2023 TECHNIQUE: Nuclear medicine perfusion study was obtained following the intravenous administration of 5.5 mCi technetium 99 MAA given via the left upper extremity. FINDINGS: No large segmental perfusion defects are identified. Chest radiograph obtained on 03/12/2023 demonstr ates clear lung arevalo without evidence of pulmonary edema or airspace consolidation. IMPRESSION: Low probability for pulmonary embolus. ACT 112: Negative or not required by law. The above report was generated using voice recognition software. It may contain grammatical, syntax o r spelling errors. Electronically signed by: Mani Ramos M.D. 03/14/2023 10:14 AM
--- NOTE | 2023-03-14 13:34 | Hospitalist Progress Note ---
Date of Service March 14, 2023 Assessment & Plan (1) Acute on chronic respiratory failure with hypoxia and hypercapnia: (2) COPD exacerbation: (3) Acute heart failure with preserved ejection fraction (HFpEF): Plan Ms. Dewey is a 77-year-old woman who has significant past medical history of chronic hypoxic respiratory failure on 2-3 L of oxygen, COPD, HTN, HLD, CKD-3b, gastritis, GERD, IBS, history of E. coli UTI, depression with anxiety, history of tobacco abuse and wheelchair-bound status 2/2 congenital hip dysplasia s/p multiple surgies, as well as chronic opioid use who presents to [facility] due to progressive SOB despite ongoing antibiotics and prednisone taper. #Acute on chronic respiratory failure with hypoxia, hypercapnia, multifactorial # COPD exacerbation # Acute on chronic diastolic heart failure Recently hospitalized at [facility] 3 weeks ago, with subsequent stay at [facility]--completed 5 days IV abx at [facility] as well as, doxy course/long steroid taper at [facility]. Presents with shortness of breath. Chest x-ray personally reviewed; increased vascular congestion. BNP 457, D-dimer elevated to 1250 Venous duplexnegative for DVT Blood culture on admission1/2 bottles positive for Staph epidermidis Reviewed blood cultureno growth till date. VQ scan low probability of PE Discontinue heparin drip. Low suspicion for acute PE given the VQ scan and lower extremity Dopplers. Patient also improved with DuoNebs and steroids. On IV Lasix of 10 mg once a day; switch over to 20 mg once a day Continue on IV Unasyn; plan to treat for 5 to 7 days. Can switch over to Augmentin at discharge. Continue on prednisone for 5 days Obtain repeat blood culture #Hypertensive Urgency #Elevated Troponin, demand ischemia #Asymptomatic Bradycardia High sensitive troponin 59; up trended to 104 and down trended. -ECHO with EF 65%, with mild concentric LVH. -Recentylt discontinued Coreg 12.5mg 2/2 bradycardia, Losartan discontinued at other admission -Home regimen: hydralazine 100mg BID, clonidine 0.1 BID Lasix and felodipine added during the hospitalization. History of bradycardia; unable to tolerate increased dosing of clonidine or beta-nilsa Continue to monitor CKD IIIb -stable; Avoid nephrotoxic agent. HLD Continue home ASA and rosuvastatin Allergic rhinitis -Continue home flonase and loratadine Depression Anxiety -Continue home lexapro -Continue home xanax bid prn Chronic iron deficiency anemia -stable hgb -Continue home iron supplementation GERD -Continue protonix bid Nephrolithiasis c/b hydronephrosis s/p stenting 2021 -continue home tamsulosin 0.4 mg qhs Chronic pain on chronic opioids Congential Hip dysplasia s/p multiple Burning mouth syndrome - Continue home Oxy 5 BID -Senakot scheduled, miralaz prn DVT heparin Diet HH Admit PCU/tele Dispositionpatient clinically improving. Awaiting PT OT evaluation. May need rehab at discharge Time spent evaluating patient, direct bedside care, chart review, placing orders, interpretation of diagnostic studies, discussion with consultants, patient, and family members, as well as other required patient management activities is 50-minute Please note the above document was generated using voice recognition software. It may contain grammatical, syntax or spelling errors. Any formal questions or concerns about the content, text or information contained within the body of this dictation should be directly addressed to the provider for clarification Admission and Anticipated Discharge Date Admission Date: March 12, 2023 Subjective Patient seen and examined at the bedside. She is sitting up on the chair; not in distress. She reports that her breathing is much better today. Review of Systems Review of Systems: All systems reviewed & are unremarkable except as noted in Subjective Physical Exam Physical Exam: Constitutional: Awake, alert oriented x 3; not in distress. Respiratory: Bilateral wheeze improved Cardiovascular: RRR, no murmur, no edema Vessels: no JVD or carotid bruit Chest: normal inspection of chest Abdomen: Soft, nontender. Musculoskeletal: no cyanosis or clubbing, extremities motor strength 5/5. No pitting edema Skin: no rashes, warm and dry normal turgor Neurologic: moves all extremities; grossly intact. Results & Data Results & Data Vital Signs (Past 12 Hours) Vital Signs Temp Pulse Pulse Resp BP Pulse Ox O2 Del Method 03/14/23 11:15 36.3 C L 63 19 165/67 H 95 Nasal Cannula 03/14/23 09:00 Nasal Cannula 03/14/23 09:00 57 L 03/14/23 07:51 55 L 18 97 Nasal Cannula 03/14/23 07:09 36.5 C 59 L 19 153/57 H 98 Nasal Cannula 03/14/23 03:17 36.7 C 62 18 156/56 H 96 Nasal Cannula O2 Flow Rate 03/14/23 11:15 1 03/14/23 09:00 2 03/14/23 09:00 03/14/23 07:51 2 03/14/23 07:09 03/14/23 03:17 2
--- NOTE | 2023-03-14 16:19 | Cardiology Progress Note ---
Date of Service March 14, 2023 Assessment & Plan (1) Hypertensive urgency: (2) COPD exacerbation: (3) Elevated troponin: (4) CKD (chronic kidney disease): (5) Hypertensive heart disease with chronic diastolic congestive heart failure: Plan 77-year-old female presents with acute on chronic respiratory failure. Clinically improved with multifactorial approach including gentle IV diuresis, corticosteroids, nebulizer treatment, and antibiotics. Blood pressure elevated on admission in the setting of recent discontinuation of ARB and carvedilol. BP improved with addition of felodipine, titration of hydralazine, and addition of low-dose diuretic therapy. Clonidine continued on admission. Avoid beta- nilsa and/or nondihydropyridine calcium channel nilsa due to chart history of bradycardia No overt evidence of volume overload currently. Serum creatinine trending upward. Monitor closely. Consider discontinuation and/or reducing Lasix to 3 days/week pending review of a.m. labs 03/15/2023. D-dimer elevated. No evidence of lower extremity DVT. Pulmonary perfusion scan low probability for PE. CTA avoided due to CKD. Admission and Anticipated Discharge Date Admission Date: March 12, 2023 Subjective Patient seen and examined at the bedside. Blood pressure improved since admission, however, remains mildly elevated. No recurrent chest discomfort. Telemetry reveals sinus bradycardia in the 50s and 60s. Patient notes cough without sputum production. No orthopnea, PND, or edema. Review of Systems Review of Systems: All systems reviewed & are unremarkable except as noted in Subjective Physical Exam Constitutional: well developed, well nourished and + obese Respiratory: no respiratory distress, no labored breathing and no retractions Auscultation: + diminished lung sounds (Bilateral.); no rales, no rhonchi and no wheezes Cardiovascular: Rate/Rhythm: regular rate and regular rhythm Heart Sounds: normal S1, normal S2 and + murmur (2/6 mid peaking medium pitched systolic ejection murmur); no cardiac rub Vessels: radial pulses present; no JVD Extremities: no edema Gastrointestinal (Abdomen): Inspection/Auscultation: normal bowel sounds; abdomen not distended Percussion/Palpation: abdomen soft; abdomen nontender, no guarding and abdomen not rigid Neurologic: CN's II-XI intact bilaterally and moves all extremities Results & Data Vital Signs (Past 12 Hours) Vital Signs Temp Pulse Pulse Resp BP Pulse Ox O2 Del Method 03/14/23 15:29 36.5 C 71 18 149/66 H 96 Nasal Cannula 03/14/23 13:48 17 95 Nasal Cannula 03/14/23 11:15 36.3 C L 63 19 165/67 H 95 Nasal Cannula 03/14/23 09:00 Nasal Cannula 03/14/23 09:00 57 L 03/14/23 07:51 55 L 18 97 Nasal Cannula 03/14/23 07:09 36.5 C 59 L 19 153/57 H 98 Nasal Cannula O2 Flow Rate 03/14/23 15:29 1 03/14/23 13:48 1 03/14/23 11:15 1 03/14/23 09:00 2 03/14/23 09:00 03/14/23 07:51 2 03/14/23 07:09
[2023-03-14] MEDS: ALPRAZolam 0.5 MG TABLET PO PRN (21:04)
[2023-03-14] MEDS: ROSUVASTATIN CALCIUM 10 MG TAB PO SCH (21:04)
[2023-03-14] MEDS: TAMSULOSIN HCL 0.4 MG CAP PO SCH (21:04)
[2023-03-15] MEDS: ALBUT/IPRATROP 3MG/0.5MG NEB 3 ML VIAL NEB SCH ×3 (01:11→13:14)
[2023-03-15] MEDS: UNASYN 3000MG / NS q6h IV SCH ×2 (04:33→17:15)
[2023-03-15] MEDS: predniSONE 20 MG TAB PO SCH (08:35)
[2023-03-15] MEDS: ESCITALOPRAM OXALATE 10 MG TAB PO SCH (08:35)
[2023-03-15] MEDS: cloNIDine HCL 0.1 MG TAB PO SCH ×2 (08:35→20:00)
[2023-03-15] MEDS: ASPIRIN 81 MG ECTAB PO SCH (08:35)
[2023-03-15] MEDS: guaiFENesin 600 MG TABCR PO SCH ×2 (08:35→19:59)
[2023-03-15] MEDS: MULTIVITAMIN TAB PO SCH (08:35)
[2023-03-15] MEDS: FELODIPINE 5 MG TABCR PO SCH (08:35)
[2023-03-15] MEDS: PANTOprazole 40 MG TAB PO SCH ×2 (08:35→19:58)
[2023-03-15] MEDS: DOCUSATE SODIUM/SENNA 50/8.6MG TAB PO SCH (08:35)
[2023-03-15] MEDS: LORATADINE 10 MG TAB PO SCH (08:36)
[2023-03-15] MEDS: UMECLIDINIUM/VILANTEROL 62.5/25MCG 7 PUFFS/INHALER INH SCH (08:36)
[2023-03-15] MEDS: FLUTICASONE FUROATE 100MCG 14 PUFFS/INHALER INH SCH (08:36)
[2023-03-15] MEDS: hydrALAZINE TAB 50 MG TAB PO SCH ×3 (08:36→19:59)
[2023-03-15] MEDS: FERROUS SULFATE 325 MG TAB PO SCH (08:36)
[2023-03-15] MEDS: HEPARIN SOD 5,000 UNIT/0.5 ML VIAL SQ SCH ×3 (08:36→21:27)
[2023-03-15] MEDS: FUROSEMIDE 20 MG TAB PO SCH (08:37)
[2023-03-15] MEDS: FLUTICASONE PROPIONATE NA SPR 16 GM BTL NAE SCH ×2 (08:37→19:57)
[2023-03-15] MEDS ORDERED: ERGOCALCIFEROL 50,000 UNITS 1250 MCG CAP PO SCH (09:00)
--- NOTE | 2023-03-15 14:16 | Hospitalist Progress Note ---
Date of Service March 15, 2023 Assessment & Plan (1) Acute on chronic respiratory failure with hypoxia and hypercapnia: (2) COPD exacerbation: (3) Acute heart failure with preserved ejection fraction (HFpEF): Plan Ms. Dewey is a 77-year-old woman who has significant past medical history of chronic hypoxic respiratory failure on 2-3 L of oxygen, COPD, HTN, HLD, CKD-3b, gastritis, GERD, IBS, history of E. coli UTI, depression with anxiety, history of tobacco abuse and wheelchair-bound status 2/2 congenital hip dysplasia s/p multiple surgies, as well as chronic opioid use who presents to [facility] due to progressive SOB despite ongoing antibiotics and prednisone taper. Acute on chronic respiratory failure with hypoxia, hypercapnia, multifactorial COPD exacerbation Acute on chronic diastolic heart failure Recently hospitalized at [facility] 3 weeks [employer], with subsequent stay at [facility]--completed 5 days IV abx at [facility] as well as, doxy course/long steroid taper at [facility]. Presented with shortness of breath. Chest x-ray showed increased vascular congestion. BNP 457 D-dimer elevated to 1250 Venous duplexnegative for DVT Blood culture on admission1/2 bottles positive for Staph epidermidis, repeat blood Cx with NGTD VQ scan low probability of PE- heparin drip d/c Patient also improved with DuoNebs and steroids. IV Lasix 10 mg once a day transitioned over to PO 20 mg once a day Continue on IV Unasyn; plan to treat for 5 to 7 days. Can switch over to Augmentin at discharge. Continue on prednisone for 5 days Hypertensive Urgency Elevated Troponin, demand ischemia Asymptomatic Bradycardia High sensitive troponin 59; up trended to 104 and down trended. ECHO with EF 65%, with mild concentric LVH. Recently discontinued Coreg 12.5mg 2/2 bradycardia, Losartan discontinued at other admission Home regimen: hydralazine 100mg BID, clonidine 0.1 BID Lasix and felodipine added during the hospitalization. History of bradycardia; unable to tolerate increased dosing of clonidine or beta-nilsa Continue to monitor Cardiology consulted- appreciate recs Acute on CKD IIIb Cr increasing Lasix made every other day dosing Avoid nephrotoxic agents HLD Continue home ASA and rosuvastatin Allergic rhinitis Continue home flonase and loratadine Depression Anxiety Continue home lexapro Continue home xanax bid prn Chronic iron deficiency anemia stable hgb Continue home iron supplementation GERD Continue protonix bid Nephrolithiasis c/b hydronephrosis s/p stenting 2021 continue home tamsulosin 0.4 mg qhs Chronic pain on chronic opioids Congential Hip dysplasia s/p multiple Burning mouth syndrome DVT prophylaxis:heparin Diet Dispo: Home with daughter Admission and Anticipated Discharge Date Admission Date: March 12, 2023 Subjective Pt seen in the AM. Sitting at bedside in a chair. NC in nares. Denied acute concerns otherwise. Review of Systems Review of Systems: All systems reviewed & are unremarkable except as noted in Subjective Physical Exam Physical Exam: General: Alert, oriented. No acute distress Skin: No noted rashes or bruises Psych: Appropriate mood and affect Neuro: No gross deficits HEENT: NC/AT CV: RRR Resp: Breath sounds clear bilaterally, no increased effort of breathing. Abdomen: Soft, nontender, nondistended. Extremities: No edema in lower extremities bilaterally. Results & Data Results & Data Vital Signs (Past 12 Hours) Vital Signs Temp Pulse Pulse Resp BP BP Pulse Ox 03/15/23 13:15 69 17 98 03/15/23 11:23 36.7 C 66 18 164/64 H 97 03/15/23 11:13 03/15/23 08:12 58 L 03/15/23 07:44 36.9 C 70 18 160/64 H 97 03/15/23 07:09 71 18 98 03/15/23 03:20 36.7 C 67 18 162/68 H 98 O2 Del Method O2 Flow Rate 03/15/23 13:15 Nasal Cannula 2 03/15/23 11:23 Nasal Cannula 3 03/15/23 11:13 Room Air 03/15/23 08:12 03/15/23 07:44 Nasal Cannula 3 03/15/23 07:09 Nasal Cannula 3 03/15/23 03:20 Nasal Cannula 2
[2023-03-15] MEDS ORDERED: ALBUT/IPRATROP 3MG/0.5MG NEB 3 ML VIAL NEB PRN (14:29)
[2023-03-15 15:48] LABS: Hematocrit (blood only) 28.5 % (37.0-47.0); Hemoglobin 8.9 g/dl (12.0-16.0); Mean Corpuscular Hemoglobin 27.9 pg (25.0-34.0); Mean Corpuscular Hgb Conc 31.2 g/dL (32.0-36.0); Mean Corpuscular Volume 89.3 fL (80.0-100.0); Mean Platelet Volume 10.7 fL (9.4-12.4); Platelet Count 172 K/uL (130-400); RDW Coefficient of Variation 13.3 % (11.5-14.5); RDW Standard Deviation 43.8 fL (36.4-46.3); Red Blood Count 3.19 M/uL (4.20-5.40); White Blood Count 8.61 K/ul (4.8-10.8)
[2023-03-15 16:05] LABS: Albumin Globulin Ratio 1.3 (0.9-2); Albumin Level 3.5 gm/dl (3.4-5.0); Bilirubin,Total 0.3 mg/dl (0.2-1.0); Creatinine Clr Calc Pharmacy 20.3 ml/min; Eosinophils # (auto) 0.02 K/uL (0.00-0.50); Eosinophils % (auto) 0.2 %; Est GFR (Non-African American) 23.3 ml/min; Globulin 2.7 gm/dl (2.5-4.0); Immature Granulocytes # (auto) 0.04 K/uL (0.01-0.20); Immature Granulocytes % (auto) 0.5 %; Lymphocytes % (auto) 4.6 %; Magnesium 1.7 mg/dl (1.7-2.4); Monocytes # (auto) 0.23 K/uL (0.11-0.59); Monocytes % (auto) 2.7 %; Neutrophils # (auto) 7.92 K/uL (1.40-6.50); Phosphorus 2.9 mg/dl (2.5-4.9); Potassium 4.3 mmol/L (3.5-5.1); Total Protein 6.2 gm/dl (6.0-8.3)
[2023-03-15] MEDS: ALPRAZolam 0.5 MG TABLET PO PRN (17:18)
--- NOTE | 2023-03-15 17:25 | Cardiology Progress Note ---
Date of Service March 15, 2023 Assessment & Plan (1) Hypertensive urgency: (2) COPD exacerbation: (3) Elevated troponin: (4) CKD (chronic kidney disease): (5) Hypertensive heart disease with chronic diastolic congestive heart failure: Plan 77-year-old female presents with acute on chronic respiratory failure. C BP improved with addition of felodipine, titration of hydralazine, and addition of low-dose diuretic therapy. Avoid beta-nilsa and/or nondihydropyridine calcium channel nilsa due to chart history of bradycardia No overt evidence of volume overload currently. Serum creatinine trending upward. Monitor closely. Reduce furosemide frequency to 20 mg every 48 hours. Increase clonidine 0.2 mg twice daily and monitor for bradycardia. D-dimer elevated. No evidence of lower extremity DVT. Pulmonary perfusion scan low probability for PE. CTA avoided due to CKD. Admission and Anticipated Discharge Date Admission Date: March 12, 2023 Subjective Patient seen in cardiology follow-up. No subjective complaints other than generalized weakness. Physical Exam Constitutional: well developed, well nourished and + obese Respiratory: no respiratory distress, no labored breathing and no retractions Auscultation: + diminished lung sounds (Bilateral.); no rales, no rhonchi and no wheezes Cardiovascular: Rate/Rhythm: regular rate and regular rhythm Heart Sounds: normal S1, normal S2 and + murmur (2/6 mid peaking medium pitched systolic ejection murmur); no cardiac rub Vessels: radial pulses present; no JVD Extremities: no edema Gastrointestinal (Abdomen): Inspection/Auscultation: normal bowel sounds; abdomen not distended Percussion/Palpation: abdomen soft; abdomen nontender, no guarding and abdomen not rigid Neurologic: CN's II-XI intact bilaterally and moves all extremities Results & Data Vital Signs (Past 12 Hours) Vital Signs Temp Pulse Pulse Resp BP Pulse Ox O2 Del Method 03/15/23 15:58 69 03/15/23 15:21 36.7 C 67 18 175/58 H 95 Nasal Cannula 03/15/23 13:15 69 17 98 Nasal Cannula 03/15/23 11:23 36.7 C 66 18 164/64 H 97 Nasal Cannula 03/15/23 11:13 Room Air 03/15/23 08:12 58 L 03/15/23 07:44 36.9 C 70 18 160/64 H 97 Nasal Cannula 03/15/23 07:09 71 18 98 Nasal Cannula O2 Flow Rate 03/15/23 15:58 03/15/23 15:21 3 03/15/23 13:15 2 03/15/23 11:23 3 03/15/23 11:13 03/15/23 08:12 03/15/23 07:44 3 03/15/23 07:09 3 Laboratory Results Cardiac Enzymes 03/15/23 Range/Units 15:25 AST 12 L (13-39) U/L CBC 03/15/23 Range/Units 15:25 WBC 8.61 (4.8-10.8) K/ul RBC 3.19 L (4.20-5.40) M/uL Hgb 8.9 L (12.0-16.0) g/dl Hct 28.5 L (37.0-47.0) % Plt Count 172 (130-400) K/uL Neut # (Auto) 7.92 H (1.40-6.50) K/uL Lymph # (Auto) 0.40 L (1.20-3.40) K/uL Foster # (Auto) 0.23 (0.11-0.59) K/uL Eos # (Auto) 0.02 (0.00-0.50) K/uL Baso # (Auto) 0.00 (0.00-0.20) K/uL Comprehensive Metabolic Panel 03/15/23 Range/Units 15:25 Sodium 137 (136-145) mmol/L Potassium 4.3 (3.5-5.1) mmol/L Chloride 97 L (98-107) mmol/L Carbon Dioxide 33 H (21-32) mmol/L BUN 42 H (6-23) mg/dl Creatinine 2.00 H (0.6-1.2) mg/dl Glucose 169 H (70-99(Fasting)) mg/dl Calcium 9.0 (8.6-10.3) mg/dl AST 12 L (13-39) U/L ALT 12 (7-52) U/L Alkaline Phosphatase 35 (34-104) U/L Total Protein 6.2 (6.0-8.3) gm/dl Albumin 3.5 (3.4-5.0) gm/dl Intake and Output 03/15/23 03/15/23 03/15/23 06:59 14:59 22:59 Intake Total 100 / 1450.00 430 / 430 Output Total 300 / 800 550 / 550 Balance -200 / 650.00 -120 / -120 Intake: IV 100 / 800.00 Ampicillin/Sulbactam Sod 3,000 100 / 300 mg In Sodium Chlor 0.9% Mini-B 100 ml @ 200 mls/hr IV Q12H [facility] Rx#:[id number] Oral 430 / 430 Output: Urine 300 / 300 Urine Amount (Catheter) 550 / 550 [place]/Indwelling 550 / 550 Other: Weight 67 kg Weight Measurement Method Built in [facility]
[2023-03-15] MEDS: ROSUVASTATIN CALCIUM 10 MG TAB PO SCH (19:58)
[2023-03-15] MEDS: TAMSULOSIN HCL 0.4 MG CAP PO SCH (19:59)
[2023-03-15] MEDS: oxyCODONE HCL IR 5 MG TAB (IMMEDIATE RELEASE) PO PRN (21:41)
[2023-03-16] MEDS: HEPARIN SOD 5,000 UNIT/0.5 ML VIAL SQ SCH ×3 (04:43→20:32)
[2023-03-16] MEDS: UNASYN 3000MG / NS q6h IV SCH ×2 (04:46→17:14)
[2023-03-16] MEDS: oxyCODONE HCL IR 5 MG TAB (IMMEDIATE RELEASE) PO PRN ×2 (04:50→12:32)
[2023-03-16 06:58] LABS: Basophils # (auto) 0.01 K/uL (0.00-0.20); Basophils % (auto) 0.2 %; Eosinophils % (auto) 1.7 %; Hematocrit (blood only) 25.4 % (37.0-47.0); Hemoglobin 7.9 g/dl (12.0-16.0); Immature Granulocytes # (auto) 0.05 K/uL (0.01-0.20); Immature Granulocytes % (auto) 0.8 %; Lymphocytes % (auto) 21.7 %; Mean Corpuscular Hemoglobin 27.6 pg (25.0-34.0); Mean Corpuscular Hgb Conc 31.1 g/dL (32.0-36.0); Mean Corpuscular Volume 88.8 fL (80.0-100.0); Mean Platelet Volume 10.4 fL (9.4-12.4); Monocytes # (auto) 0.51 K/uL (0.11-0.59); Monocytes % (auto) 8.5 %; Neutrophils # (auto) 4.02 K/uL (1.40-6.50); Neutrophils % (auto) 67.1 %; Platelet Count 145 K/uL (130-400); RDW Coefficient of Variation 13.3 % (11.5-14.5); RDW Standard Deviation 43.8 fL (36.4-46.3); Red Blood Count 2.86 M/uL (4.20-5.40); White Blood Count 5.99 K/ul (4.8-10.8)
[2023-03-16 07:27] LABS: Bilirubin,Total 0.3 mg/dl (0.2-1.0); Calcium 8.7 mg/dl (8.6-10.3); Magnesium 1.7 mg/dl (1.7-2.4); Potassium 3.6 mmol/L (3.5-5.1)
[2023-03-16 07:33] LABS: Albumin Globulin Ratio 1.4 (0.9-2); BUN Creatinine Ratio 25.5 (10-20); Creatinine Clr Calc Pharmacy 25.3 ml/min; Est GFR (African American) 35.1 ml/min; Est GFR (Non-African American) 30.3 ml/min; Globulin 2.2 gm/dl (2.5-4.0); Phosphorus 2.8 mg/dl (2.5-4.9); Total Protein 5.2 gm/dl (6.0-8.3)
[2023-03-16 07:34] LABS: RBC Morphology Unremarkable
[2023-03-16] MEDS: FELODIPINE 5 MG TABCR PO SCH (09:06)
[2023-03-16] MEDS: FERROUS SULFATE 325 MG TAB PO SCH (09:06)
[2023-03-16] MEDS: predniSONE 20 MG TAB PO SCH (09:06)
[2023-03-16] MEDS: ASPIRIN 81 MG ECTAB PO SCH (09:06)
[2023-03-16] MEDS: ESCITALOPRAM OXALATE 10 MG TAB PO SCH (09:06)
[2023-03-16] MEDS: PANTOprazole 40 MG TAB PO SCH ×2 (09:06→20:32)
[2023-03-16] MEDS: cloNIDine HCL 0.1 MG TAB PO SCH ×2 (09:06→20:32)
[2023-03-16] MEDS: guaiFENesin 600 MG TABCR PO SCH ×2 (09:06→20:30)
[2023-03-16] MEDS: DOCUSATE SODIUM/SENNA 50/8.6MG TAB PO SCH (09:06)
[2023-03-16] MEDS: MULTIVITAMIN TAB PO SCH (09:06)
[2023-03-16] MEDS: hydrALAZINE TAB 50 MG TAB PO SCH ×3 (09:06→20:31)
[2023-03-16] MEDS: FLUTICASONE FUROATE 100MCG 14 PUFFS/INHALER INH SCH (09:07)
[2023-03-16] MEDS: FLUTICASONE PROPIONATE NA SPR 16 GM BTL NAE SCH ×2 (09:07→20:30)
[2023-03-16] MEDS: LORATADINE 10 MG TAB PO SCH (09:07)
[2023-03-16] MEDS: UMECLIDINIUM/VILANTEROL 62.5/25MCG 7 PUFFS/INHALER INH SCH (09:08)
[2023-03-16] MEDS: ALPRAZolam 0.5 MG TABLET PO PRN (12:32)
[2023-03-16] MEDS: ROSUVASTATIN CALCIUM 10 MG TAB PO SCH (20:31)
[2023-03-16] MEDS: TAMSULOSIN HCL 0.4 MG CAP PO SCH (20:31)
[2023-03-17] MEDS: oxyCODONE HCL IR 5 MG TAB (IMMEDIATE RELEASE) PO PRN ×2 (03:56→13:56)
--- NOTE | 2023-03-17 04:35 | Hospitalist Progress Note ---
Date of Service March 16, 2023 Assessment & Plan (1) Acute on chronic respiratory failure with hypoxia and hypercapnia: (2) COPD exacerbation: (3) Acute heart failure with preserved ejection fraction (HFpEF): Plan Ms. Dewey is a 77-year-old woman who has significant past medical history of chronic hypoxic respiratory failure on 2-3 L of oxygen, COPD, HTN, HLD, CKD-3b, gastritis, GERD, IBS, history of E. coli UTI, depression with anxiety, history of tobacco abuse and wheelchair-bound status 2/2 congenital hip dysplasia s/p multiple surgies, as well as chronic opioid use who presents to [facility] due to progressive SOB despite ongoing antibiotics and prednisone taper. 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 Presented with shortness of breath. Chest x-ray showed increased vascular congestion. BNP 457 D-dimer elevated to 1250 Venous duplexnegative for DVT Blood culture on admission1/2 bottles positive for Staph epidermidis, repeat blood Cx with NGTD VQ scan low probability of PE- heparin drip d/c Patient also improved with DuoNebs and steroids. IV Lasix 10 mg once a day transitioned over to PO 20 mg every other day Treated with IV Unasyn; plan to treat for 5 to 7 days. Can switch over to Augmentin at discharge. Continue on prednisone for 5 days Hypertensive Urgency Elevated Troponin, demand ischemia Asymptomatic Bradycardia High sensitive troponin 59; up trended to 104 and down trended. ECHO with EF 65%, with mild concentric LVH. Recently discontinued Coreg 12.5mg 2/2 bradycardia, Losartan discontinued at ot her admission Home regimen: hydralazine 100mg BID, clonidine 0.1 BID Lasix and felodipine added during the hospitalization. History of bradycardia; unable to tolerate beta-nilsa, per cardiology no CCB Continue to monitor Cardiology consulted- appreciate recs Acute on CKD IIIb Cr increasing Lasix made every other day dosing Avoid nephrotoxic agents HLD Continue home ASA and rosuvastatin Allergic rhinitis Continue home flonase and loratadine Depression Anxiety Continue home lexapro Continue home xanax bid prn Chronic iron deficiency anemia stable hgb Continue home iron supplementation GERD Continue protonix bid Nephrolithiasis c/b hydronephrosis s/p stenting 2021 continue home tamsulosin 0.4 mg qhs Chronic pain on chronic opioids Congential Hip dysplasia s/p multiple Burning mouth syndrome DVT prophylaxis:heparin Diet HH Dispo: Home with daughter Admission and Anticipated Discharge Date Admission Date: March 12, 2023 Subjective Pt seen in the AM. Laying in bed today. States that breathing was better. Daughter was contacted, provided update. Advised that discharge likely. Review of Systems Review of Systems: All systems reviewed & are unremarkable except as noted in Subjective Physical Exam Physical Exam: General: Alert, oriented. No acute distress Skin: No noted rashes or bruises Psych: Appropriate mood and affect Neuro: No gross deficits while sitting in bed HEENT: NC/AT CV: RRR Resp: Breath sounds clear bilaterally, no increased effort of breathing. Abdomen: Soft, nontender, nondistended. Extremities: No edema in lower extremities bilaterally. Results & Data Results & Data Vital Signs (Past 12 Hours) Vital Signs Temp Pulse Pulse Resp BP BP Pulse Ox 03/16/23 11:16 36.6 C 64 18 162/61 H 94 03/16/23 07:30 61 03/16/23 07:28 36.6 C 55 L 16 163/61 H 97 03/16/23 04:05 36.5 C 56 L 18 175/56 H 97 O2 Del Method O2 Flow Rate 03/16/23 11:16 Nasal Cannula 2 03/16/23 07:30 03/16/23 07:28 Nasal Cannula 2 03/16/23 04:05 Nasal Cannula 2
[2023-03-17 06:42] LABS: Eosinophils # (auto) 0.06 K/uL (0.00-0.50); Eosinophils % (auto) 0.9 %; Hematocrit (blood only) 25.6 % (37.0-47.0); Hemoglobin 8.3 g/dl (12.0-16.0); Immature Granulocytes # (auto) 0.05 K/uL (0.01-0.20); Immature Granulocytes % (auto) 0.8 %; Lymphocytes # (auto) 1.01 K/uL (1.20-3.40); Lymphocytes % (auto) 15.5 %; Mean Corpuscular Hemoglobin 28.7 pg (25.0-34.0); Mean Corpuscular Hgb Conc 32.4 g/dL (32.0-36.0); Mean Corpuscular Volume 88.6 fL (80.0-100.0); Mean Platelet Volume 10.3 fL (9.4-12.4); Monocytes # (auto) 0.52 K/uL (0.11-0.59); Neutrophils # (auto) 4.86 K/uL (1.40-6.50); Neutrophils % (auto) 74.8 %; Platelet Count 146 K/uL (130-400); RDW Coefficient of Variation 13.3 % (11.5-14.5); RDW Standard Deviation 43.8 fL (36.4-46.3); Red Blood Count 2.89 M/uL (4.20-5.40)
[2023-03-17] MEDS: HEPARIN SOD 5,000 UNIT/0.5 ML VIAL SQ SCH ×2 (06:53→13:57)
[2023-03-17 07:02] LABS: Albumin Globulin Ratio 1.3 (0.9-2); BUN Creatinine Ratio 25.6 (10-20); Bilirubin,Total 0.3 mg/dl (0.2-1.0); Creatinine Clr Calc Pharmacy 25.5 ml/min; Est GFR (African American) 35.4 ml/min; Est GFR (Non-African American) 30.5 ml/min; Globulin 2.4 gm/dl (2.5-4.0); Magnesium 1.7 mg/dl (1.7-2.4); Phosphorus 2.7 mg/dl (2.5-4.9); Total Protein 5.4 gm/dl (6.0-8.3)
[2023-03-17] MEDS: FELODIPINE 5 MG TABCR PO SCH (08:04)
[2023-03-17] MEDS: PANTOprazole 40 MG TAB PO SCH (08:04)
[2023-03-17] MEDS: FLUTICASONE PROPIONATE NA SPR 16 GM BTL NAE SCH (08:04)
[2023-03-17] MEDS: UMECLIDINIUM/VILANTEROL 62.5/25MCG 7 PUFFS/INHALER INH SCH (08:04)
[2023-03-17] MEDS: ASPIRIN 81 MG ECTAB PO SCH (08:04)
[2023-03-17] MEDS: LORATADINE 10 MG TAB PO SCH (08:05)
[2023-03-17] MEDS: FLUTICASONE FUROATE 100MCG 14 PUFFS/INHALER INH SCH (08:05)
[2023-03-17] MEDS: MULTIVITAMIN TAB PO SCH (08:05)
[2023-03-17] MEDS: FERROUS SULFATE 325 MG TAB PO SCH (08:05)
[2023-03-17] MEDS: AMOXICILLIN/CLAVULANATE 500 MG TAB PO SCH ×2 (08:06→16:25)
[2023-03-17] MEDS: hydrALAZINE TAB 50 MG TAB PO SCH ×2 (08:06→13:56)
[2023-03-17] MEDS: DOCUSATE SODIUM/SENNA 50/8.6MG TAB PO SCH (08:06)
[2023-03-17] MEDS: guaiFENesin 600 MG TABCR PO SCH (08:06)
[2023-03-17] MEDS: ALPRAZolam 0.5 MG TABLET PO PRN (08:12)
[2023-03-17] MEDS ORDERED: FELODIPINE 5 MG TABCR PO SCH (09:00)
[2023-03-17] MEDS ORDERED: FUROSEMIDE 20 MG TAB PO SCH (09:00)
[2023-03-17] MEDS: predniSONE 20 MG TAB PO SCH (09:29)
[2023-03-17] MEDS: cloNIDine HCL 0.1 MG TAB PO SCH (09:30)
[2023-03-17] MEDS: ESCITALOPRAM OXALATE 10 MG TAB PO SCH (09:30)
--- NOTE | 2023-03-17 11:58 | Cardiology Progress Note ---
Date of Service March 17, 2023 Assessment & Plan (1) Hypertensive urgency: (2) COPD exacerbation: (3) Elevated troponin: (4) CKD (chronic kidney disease): (5) Hypertensive heart disease with chronic diastolic congestive heart failure: Plan 77-year-old female presents with acute on chronic respiratory failure. Clinically improved with multifactorial approach including gentle IV diuresis, corticosteroids, nebulizer treatment, and antibiotics. Blood pressure elevated in the setting of recent discontinuation of ARB and carvedilol. During hospitalization, blood pressure improved with addition of felodipine, titration of hydralazine, titration of clonidine, and addition of low-dose diuretic therapy (furosemide 20 mg every other day). Renal function remains stable. Recommend titration of felodipine to 10 mg daily. Continue clonidine 0.2 mg twice daily, hydralazine 100 mg 3 times daily, and furosemide 20 mg every other day. Avoid beta-nilsa and/or nondihydropyridine calcium channel nilsa due to history of bradycardia D-dimer elevated. No evidence of lower extremity DVT. Pulmonary perfusion scan low probability for PE. CTA avoided due to CKD. No further inpatient cardiac testing or intervention recommended at this time. Thank you for allow me to participate in the care of your patient. Cardiology will sign off. Admission and Anticipated Discharge Date Admission Date: March 12, 2023 Subjective Patient and examined at bedside. Reports mild shortness of breath this morning. No chest discomfort or heaviness. Telemetry reveals sinus bradycardia 50-60 bpm. No lightheadedness, dizziness, syncope, or near syncope. Blood pressure elevated this a.m. prior to medication. Review of Systems Review of Systems: All systems reviewed & are unremarkable except as noted in Subjective Physical Exam Constitutional: well developed, well nourished and + obese Respiratory: no respiratory distress, no labored breathing and no retractions Auscultation: + diminished lung sounds (Bilateral.) and + wheezes (Mild end expiratory wheeze); no rales and no rhonchi Cardiovascular: Rate/Rhythm: regular rate and regular rhythm Heart Sounds: normal S1, normal S2 and + murmur (2/6 mid peaking medium pitched systolic ejection murmur); no cardiac rub Vessels: radial pulses present; no JVD Extremities: no edema Gastrointestinal (Abdomen): Inspection/Auscultation: normal bowel sounds; abdomen not distended Percussion/Palpation: abdomen soft; abdomen nontender, no guarding and abdomen not rigid Neurologic: CN's II-XI intact bilaterally and moves all extremities Results & Data Vital Signs (Past 12 Hours) Vital Signs Temp Pulse Pulse Resp BP Pulse Ox O2 Del Method 03/17/23 10: 36.6 C 58 L 17 146/64 H 96 Nasal Cannula 03/17/23 10: 62 142/54 H 03/17/23 08:15 Nasal Cannula 03/17/23 08:15 59 L 03/17/23 07:25 36.5 C 61 17 191/49 H 96 Nasal Cannula 03/17/23 02:36 36.8 C 50 L 18 174/69 H 97 Nasal Cannula O2 Flow Rate 03/17/23 10:29 2 03/17/23 10:03/17/23 08:15 2 03/17/23 08:15 03/17/23 07:25 2 03/17/23 02:36 Laboratory Results Cardiac Enzymes 03/17/23 Range/Units 06:10 AST 10 L (13-39) U/L CBC 03/17/23 Range/Units 06:10 WBC 6.50 (4.8-10.8) K/ul RBC 2.89 L (4.20-5.40) M/uL Hgb 8.3 L (12.0-16.0) g/dl Hct 25.6 L (37.0-47.0) % Plt Count 146 (130-400) K/uL Neut # (Auto) 4.86 (1.40-6.50) K/uL Lymph # (Auto) 1.01 L (1.20-3.40) K/uL Carbon # (Auto) 0.52 (0.11-0.59) K/uL Eos # (Auto) 0.06 (0.00-0.50) K/uL Baso # (Auto) 0.00 (0.00-0.20) K/uL Comprehensive Metabolic Panel 03/17/23 Range/Units 06:10 Sodium 138 (136-145) mmol/L Potassium 4.0 (3.5-5.1) mmol/L Chloride 99 (98-107) mmol/L Carbon Dioxide 34 H (21-32) mmol/L BUN 41 H (6-23) mg/dl Creatinine 1.60 H (0.6-1.2) mg/dl Glucose 105 H (70-99(Fasting)) mg/dl Calcium 9.0 (8.6-10.3) mg/dl AST 10 L (13-39) U/L ALT 9 (7-52) U/L Alkaline Phosphatase 27 L (34-104) U/L Total Protein 5.4 L (6.0-8.3) gm/dl Albumin 3.0 L (3.4-5.0) gm/dl Intake and Output 03/16/23 03/17/23 03/17/23 22:59 06:59 14:59 Intake Total 100 / 1135 400 / 1135 150 / 150 Output Total 300 / 1001 200 / 200 Balance 100 / 134 100 / 134 -50 / -50 Intake: IV 100 / 100 Ampicillin/Sulbactam Sod 3,000 100 / 100 mg In Sodium Chlor 0.9% Mini-B 100 ml @ 200 mls/hr IV Q12H [facility] Rx#:[id number] Oral 400 / 1035 150 / 150 Output: Urine Amount (Catheter) 300 / 1000 200 / 200 External 300 / 1000 200 / 200 Other: # Unmeasured Voids 1 Weight 67.4 kg
--- NOTE | 2023-03-17 14:22 | Discharge Summary ---
Discharge Summary Date of Service March 17, 2023 Notes For Next Care Provider Please ensure close follow up with Cardiology Medication Changes From Visit Per Cardiology, -continue with felodipine 10mg daily -take hydralazine 100mg three times a day -Clonidine dose has been increased to 0.2mg twice a day -take Lasix 20mg every other day starting on 03/19/23 Augmentin 875mg BID x 4 more days Admission HPI Per Admitting Provider Ms. Dewey is a 77-year-old woman who has significant past medical history of chronic hypoxic respiratory failure on 2-3 L of oxygen, COPD, HTN, HLD, CKD-3b, gastritis, GERD, IBS, history of E. coli UTI, depression with anxiety, history of tobacco abuse and wheelchair-bound status 2/2 congential hip dysplasia s/p multiple surgies, as well as chronic opioid use who presents to [facility] due to progressive SOB despite ongoing antibiotics and prednisone taper. Patient overall a poor historian, but reports being "diagnosed with pneumonia" and "never getting better." She states that she has been on steroids and multiple courses of antibiotics, but feels like she cannot catch her breath. She denies fevers or chills. She denies significant sputum production. She states she does feel uncomfortable laying flat at this time. She states she has been at [facility] for the last 2 weeks, but not getting any better. She also notes that she had recent admission for similar concerns at "another hospital." She endorses generalized chest pain, like "squeezing of [her] ribs." She denies palpitations, dizziness, leg swelling , or other acute concerns. She is prescribed lasix, but does not take. Patient did not take medications this morning. Further history gathered from daughter by phone, Erica Alvarez, who was able to conf [facility] home meds. She notes that patient has been hospitalized at many hospitals and is not sure of the outcome from every visit. More recent hospitalization was [facility] [address], prompting the rehab stay at [facility]. In the ED, vitals were notable for BP of up to 213, HR in high 50s, and O2 sat of 99 on 5L (low at 87 upon admission). Imaging revealed CXR with stable silhouette, and on personal review signs of congestion EKG sinus ED interventions: methylpred, asa Consultants: Cardiology Patient to be admitted to PCU tele for further evaluation and management of acute on chronic hypoxic/hypercapnic respiratory failure Admission Exam Per Admitting Provider GENERAL APPEARANCE: AxOx2-3 baseline per daughter, anxious HEENT: NC, AT. MMM. EOMI, clear conjunctiva, oropharynx clear. NECK: Supple without lymphadenopathy. No stiffness or restricted ROM. HEART: Normal rate and regular rhythm, ?gallop LUNGS: CTAB, moving air well. No crackles or wheezes are heard. ABDOMEN: Soft, nontender, nondistended with good bowel sounds heard. BACK: No CVAT, no obvious deformity. EXTREMITIES: Without cyanosis, clubbing or edema. NEUROLOGICAL: Grossly nonfocal. Alert and oriented, moving all 4 extremities. CN not formally tested but appear grossly intact Skin: Warm and dry without any rash. Principal Dx & Hospital Course #1 = Principal Diagnosis (1) Acute on chronic respiratory failure with hypoxia and hypercapnia: (2) COPD exacerbation: (3) Acute heart failure with preserved ejection fraction (HFpEF): (4) Hypertensive urgency: (5) CKD (chronic kidney disease): (6) UTI (urinary tract infection): (7) NANCY (acute kidney injury): Plan Ms. Dewey is a 77-year-old woman who has a significant past medical history of chronic hypoxic respiratory failure on 2-3 L of oxygen, COPD, HTN, HLD, CKD-3b, gastritis, GERD, IBS, history of E. coli UTI, depression with anxiety, history of tobacco abuse and wheelchair-bound status 2/2 congenital hip dysplasia s/p multiple surgeries, as well as chronic opioid use who presents to [facility] due to progressive SOB despite ongoing antibiotics and prednisone taper. Acute on chronic respiratory failure with hypoxia, hypercapnia, multifactorial COPD exacerbation Acute on chronic diastolic heart failure Recently hospitalized at [facility] [address] 3 weeks [employer], with subsequent stay at [facility]--completed 5 days IV abx at [facility] [address] as well as doxy course/long steroid taper at [facility]. Presented with shortness of breath. Chest x-ray showed increased vascular congestion. BNP 457 D-dimer elevated to 1250 Venous duplexnegative for DVT VQ scan low probability of PE- heparin drip d/c. CTA chest with contrast was avoided due to acute on chronic kidney injury. Blood culture on admission1/2 bottles positive for Staph epidermidis (likely contaminant), repeat blood Cx with NGTD Was on DuoNebs and steroids, completed 5 days of po prednisone 40mg IV Lasix 10 mg once a day transitioned over to PO 20 mg every other day Treated with IV Unasyn and transitioned to PO Augmentin on discharge for 4 more days, 7 days of treatment in total. Hypertensive Urgency Elevated Troponin, demand ischemia Asymptomatic Bradycardia High sensitive troponin 59; up trended to 104 and down trended. ECHO with EF 65%, with mild concentric LVH. Recently discontinued Coreg 12.5mg 2/2 bradycardia, Losartan discontinued at another admission Home regimen: hydralazine 100mg BID, clonidine 0.1 BID Cardiology was consulted and recommend the following: -Lasix 20mg every other day and felodipine 10mg added during the hospitaliz ation. -hydralazine 100mg three times a day -Clonidine dose has been increased to 0.2mg twice a day -Avoid beta-nilsa and/or nondihydropyridine calcium channel nilsa due to history of bradycardia PCP and cardiology followup. Acute on CKD IIIb Baseline Cr of ~1.3 on admission Cr increased to as high as 2.0 this hospitalization Lasix dosing made every other day and Cr downtrended, was 1.6 on day of discharge Avoided contrast and nephrotoxic agents PCP followup HLD Continue home ASA and rosuvastatin Allergic rhinitis Continue home flonase and loratadine Depression Anxiety Continue home lexapro Continue home xanax bid prn Chronic iron deficiency anemia stable hgb Continue home iron supplementation GERD Continue protonix bid Nephrolithiasis c/b hydronephrosis s/p stenting 2021 continue home tamsulosin 0.4 mg qhs Discharge Exam General: Alert, oriented. No acute distress Skin: No noted rashes or bruises Psych: Appropriate mood and affect Neuro: No gross deficits while sitting in bed HEENT: NC/AT CV: RRR Resp: Breath sounds clear bilaterally, no increased effort of breathing. Abdomen: Soft, nontender, nondistended. Extremities: No edema in lower extremities bilaterally. Updated Medication List Medication Instructions Recorded Confirmed Type albuterol sulfate 90 mcg/actuation 2 puff inhalation DIRECTED PRN 12/21/21 03/12/23 History aerosol inhaler Shortness Of Breath alprazolam 0.5 mg tablet (Xanax) 0.25 - 0.5 mg PO BID PRN Anxiety 12/21/21 03/12/23 History loratadine 10 mg tablet (Claritin) 10 mg PO QAM 12/21/21 03/12/23 History pantoprazole 40 mg tablet,delayed 40 mg PO BID 12/21/21 03/12/23 History release (Protonix) tamsulosin 0.4 mg capsule 0.4 mg PO HS #30 caps 03/24/22 03/12/23 Rx aspirin 81 mg tablet,delayed 81 mg PO DAILY 04/01/22 03/12/23 History release escitalopram oxalate 5 mg tablet 5 mg PO DAILY 06/01/22 03/12/23 History ferrous sulfate 325 mg (65 mg 325 mg PO DAILY 06/01/22 03/12/23 History iron) tablet oxycodone 5 mg tablet 5 mg PO BID 06/01/22 03/12/23 History cholecalciferol (vitamin D3) 1,250 50,000 unit PO WE 09/28/22 03/12/23 History mcg (50,000 unit) capsule fluticasone propionate 50 2 spray intranasal Q12 09/28/22 03/12/23 History mcg/actuation nasal spray,suspension furosemide 20 mg tablet 20 mg PO DAILY PRN .edema 09/28/22 03/12/23 History multivitamin 1 tab PO DAILY 09/28/22 03/12/23 History ondansetron 4 mg disintegrating 8 mg translingual BID PRN Nausea 09/28/22 03/12/23 History tablet potassium chloride 10 mEq 10 meq PO DAILY PRN .When takes 09/28/22 03/12/23 History capsule,extended release lasix umeclidinium 62.5 mcg-vilanterol 1 ea inhalation DAILY 09/28/22 03/12/23 History 25 mcg/actuation powdr for inhalation (Anoro Ellipta) diclofenac sodium 1 % topical gel 2 g EXT Q6H PRN back pain #100 10/03/22 03/12/23 Rx (Voltaren Arthritis Pain) grams polyethylene glycol 3350 17 gram 17 g PO DAILY PRN laxative effect 10/03/22 03/12/23 Rx oral powder packet (Miralax) #30 ea sennosides 8.6 mg-docusate sodium 1 tab PO QAM #30 tabs 10/03/22 03/12/23 Rx 50 mg tablet (Senokot-S) clonidine HCl 0.1 mg tablet 0.1 mg PO BID 03/12/23 03/12/23 History hydralazine 100 mg tablet 100 mg PO BID 03/12/23 03/12/23 History prednisone 20 mg tablet 20 mg PO DAILY 03/12/23 03/12/23 History rosuvastatin 10 mg tablet 10 mg PO HS 03/12/23 03/12/23 History amoxicillin 875 mg-potassium 1 tab PO BID #8 tabs 03/17/23 Rx clavulanate 125 mg tablet clonidine HCl 0.2 mg tablet 0.2 mg PO BID #60 tabs 03/17/23 Rx felodipine 10 mg tablet,extended 10 mg PO DAILY #30 tabs 03/17/23 Rx release 24 hr furosemide 20 mg tablet 20 mg PO Q2D@0900 #30 tabs 03/17/23 Rx hydralazine 100 mg tablet 100 mg PO TID #90 tabs 03/17/23 Rx Hospital Stay Data Consultations 03/12/23 09:29 ED Decision to Admit Stat 03/12/23 10:41 Consult Cardiology Stat Diagnostic Imagining Performed 03/12/23 11:13 US venous doppler LE BI Stat Chest X-Ray 03/12/23 07:34 XR chest 1V portable HISTORY: Sepsis COMPARISON: Chest 09/28/2022. FINDINGS: No pneumothorax. No pleural effusions. No focal lung consolidations to suggest a pneumonia. No evidence for pulmonary edema. The cardiac silhouette remains top normal in size. There are calcifications within the aortic knob. Degenerative changes again noted within the shoulders. IMPRESSION: No significant change compared to the prior study. No acute process. ACT 112: Negative or not required by law. Electronically signed by: Rnady Waldron M.D. 03/12/2023 8:50 AM Venous Doppler Study 03/12/23 11:13 BILATERAL LOWER EXTREMITY VENOUS DOPPLER HISTORY: +DDimer, shortness of breath. COMPARISON STUDY: None. FINDINGS: There is normal compressibility, flow, and augmentation within the bilateral lower extremity deep venous systems. IMPRESSION: No DVT within the right or left lower extremity. ACT 112: Negative or not required by law. Electronically signed by: Randy Waldron M.D. 03/12/2023 12:45 PM Pulmonary Perfusion Imaging 03/14/23 13:00 NM pul perfusion HISTORY: 77 years-old Female NANCY, unable to ct angio acute kidney injury with history of pulmonary arterial hypertension and hypoxia. COMPARISON: Chest radiograph 03/12/2023, duplex Doppler study 03/12/2023 TECHNIQUE: Nuclear medicine perfusion study was obtained following the intravenous administration of 5.5 mCi technetium 99 MAA given via the left upper extremity. FINDINGS: No large segmental perfusion defects are identified. Chest radiograph obtained on 03/12/2023 demonstrates clear lung arevalo without evidence of pulmonary edema or airspace consolidation. IMPRESSION: Low probability for pulmonary embolus. ACT 112: Negative or not required by law. The above report was generated using voice recognition software. It may contain grammatical, syntax or spelling errors. Electronically signed by: Mani Ramos M.D. 03/14/2023 10:14 AM Discharge Instructions Given to Patient (Per Discharging Provider) Ms. Dewey, You were admitted with trouble breathing that we believe was related to both your lungs and heart. We treated you with antibiotics and your symptoms improved. We are discharging you with 4 more days of the antibiotic Augmentin. Please take it as scheduled. We treated you with 5 days of prednisone and you completed the course of treatment while here. You were seen by Cardiology and they made changes to your medications. Your blood pressure got better after they added the medication felodipine and Lasix every other day. In addition, Cardiology increased the dosing regimen of your hydralazine medication and increased the dose of your clonidine. Per Cardiology, -continue with felodipine 10mg daily -take hydralazine 100mg three times a day -Clonidine dose has been increased to 0.2mg twice a day -take Lasix 20mg every other day starting on 03/19/23 Please keep close follow up with your primary care provider and Cardiology after discharge. It was a pleasure taking care of you while you were here. Total Time Total Time Spent Total Time Spent (In Minutes): > 30 minutes
== END 2023-03-17 17:39 | disposition home or self-care (01) | DRG 291 ==
LOC: ED 07:29 → SUATTDRO 11:01 → 2S 11:01

== ENCOUNTER 2023-07-18 11:28 | Inpatient (IN) ==
--- NOTE | 2023-07-18 11:50 | Emergency Department Note ---
Impression & Plan Respiratory failure, NANCY (acute kidney injury), Pneumonia, Acute alteration in mental status, Elevated troponin I level ED Provider Note NAME: JARVIS MATOS AGE: 78 SEX: F : 1945 ARRIVES VIA: Ambulance INFORMANT: Patient, EMS ED PROVIDER(S): Kaiser Scherer DO CHIEF COMPLAINT: Altered mental status HPI: The patient is a 78-year-old female who presented to the emergency department for an evaluation of difficulty breathing. The patient has a history of respiratory failure as well as COPD. She was last seen by her family yesterday but today when they went to find her she appeared to be having significant difficulty breathing and she was very confused. According to the prehospital personnel the patient's oxygen saturation was very low. She was placed on supplemental oxygen. Oxygen level slowly improved. The patient initially was not able to answer questions. Since that time the patient has been awake but still somewhat somnolent. She has been complaining of bilateral hip pain which is not new for her. There is no reported trauma or fever. There is no reported hemoptysis. ROS: See above HPI for pertinent positives & negatives. A total of 10 systems reviewed and were otherwise negative. PAST MEDICAL HISTORY: See Below PAST SURGICAL HISTORY: See Below FAMILY HISTORY: See Below SOCIAL HISTORY: See Below HOME MEDICATIONS: See Below ALLERGIES: See Below VITALS: See Below PHYSICAL EXAMINATION: GENERAL: The patient is awake and looking around the room. She answers questions slowly. Ty EYES: The conjunctivae are clear. The pupils are round and reactive. EARS, NOSE, MOUTH AND THROAT: The nose is without any evidence of any deformity.. NECK: The neck is nontender and supple. RESPIRATORY: Diminished breath sounds are noted bilaterally left greater than right. There is scattered rhonchi noted throughout the right lung field. There is tachypnea. CARDIOVASCULAR: Regular rate and rhythm noted there no murmurs rubs or gallops normal S1 normal S2. GASTROINTESTINAL: The abdomen is soft. Abdomen is nontender. MUSCULOSKELETAL/EXTREMITIES: There is no evidence of gross deformity full range of motion is noted in the hips and shoulders. SKIN: Skin was cool and dry. Trace pedal edema was noted bilaterally NEUROLOGIC: Patient is awake and oriented to person place but not time. Strength was symmetric. MEDICAL DECISION MAKING: The patient is a 78-year-old female who presented to the emergency department for an evaluation of difficulty breathing. The patient arrived via ambulance. She was found in her downstairs apartment. She does have family lives upstairs. She has a history of COPD. It is unclear if there is any trauma involved but the patient was found to be very altered in her mental status as well as hypoxic. The patient was treated with DuoNeb therapy as well as IV fluids. She was also treated with IV antibiotics as well as IV steroids. She was reevaluated multiple times. She continued to improve with her mental status. She was found to have an elevated troponin. EKG does not show any acute ST segment abnormalities. I [facility] agreed to evaluate the patient in the emergency department for further management and disposition. Triage Nursing notes reviewed. Prior medical records reviewed Vital Signs: reviewed and remarkable for hypoxia Differential diagnosis: Reactive airway disease, pneumonia, pneumothorax, COPD, CHF, infections, cardiac ischemia, pulmonary embolism, musculoskeletal, gastrointestinal, as well as other pathologies. ER treatment provided: See below Diagnostics interpreted by me: ECG: March 12, 2023. No changes were noted EKG was obtained in the emergency department. My interpretation is sinus rhythm at 69 bpm. There is no ectopy. There is no acute ST segment abnormalities noted. This was compared to a tracing from Cardiac Monitoring: An order was placed for continuous cardiac monitoring. The monitor shows a rate of 98 bpm with sinus rhythm Laboratory studies: As stated above and show below. Imaging studies: See below. Radiographic imaging was reviewed by myself Consultation(s): I discussed this case with Dr. Hernandez who [facility] ED COURSE: Procedures: none Critical Care: I have personally spent greater than 45 minutes of critical care time in the direct management of this patient. This includes bedside care, interpretation of diagnostic studies, and testing, discussion with consultants, patient, and family members, and other required patient management activities. This 45 minutes is in excess of all separately billable procedures. 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 Hx of hernia repair History of removal of ovarian cyst Hx of hysterectomy Hx of appendectomy Family History Mother Coronary heart disease Father Coronary heart disease Brother Diabetes Brother Coronary heart disease Other Heart disease Hypertension No family history of adverse response to anesthesia Social History Smoking Status: Former smoker Tobacco Type: Cigarettes Cigarettes Per Day: 2; Second Hand Exposure: No; Do You Dip or Chew Tobacco: No; Hx Alcohol Use: No Hx Substance Use: No Preferred Language: Lao Communication Ability: Effective Visual Impairment: No Limitations Director Of Grants Required: No Beliefs That Will Affect Care: None marital status: / Current Living Situation: Family Current Living Situation Comment: daughter How many Children do You have: 2 Feels Safe at Home: Yes Assistive Devices: Hospital Bed, Oxygen - at Night and Oxygen - Continuous Allergies Allergies Allergy/AdvReac Type Severity Reaction Status Date / Time metronidazole [From Flagyl] Allergy Severe SHORTNESS Verified 03/12/23 08:36 OF BREATH amlodipine AdvReac Intermediate left leg Verified 03/12/23 08:36 numbness cefuroxime AdvReac Intermediate Gastrointestinal Verified 03/12/23 08:36 Upset Cephalosporins AdvReac Intermediate Gastrointestinal Verified 03/12/23 08:36 Upset ciprofloxacin AdvReac Intermediate Gastrointestinal Verified 03/12/23 08:36 Upset erythromycin base AdvReac Intermediate Gastrointestinal Verified 03/12/23 08:36 Upset sulfamethoxazole AdvReac Intermediate hyperkalemi Verified 03/12/23 08:36 [From Bactrim] a trimethoprim [From Bactrim] AdvReac Intermediate hyperkalemi Verified 03/12/23 08:36 a Home Meds Home Medications Medication Instructions Recorded Confirmed albuterol sulfate 90 mcg/actuation 2 puff inhalation DIRECTED PRN 12/21/21 03/12/23 aerosol inhaler Shortness Of Breath alprazolam 0.5 mg tablet (Xanax) 0.25 - 0.5 mg PO BID PRN Anxiety 12/21/21 03/12/23 loratadine 10 mg tablet (Claritin) 10 mg PO QAM 12/21/21 03/12/23 pantoprazole 40 mg tablet,delayed 40 mg PO BID 12/21/21 03/12/23 release (Protonix) aspirin 81 mg tablet,delayed 81 mg PO DAILY 04/01/22 03/12/23 release escitalopram oxalate 5 mg tablet 5 mg PO DAILY 06/01/22 03/12/23 ferrous sulfate 325 mg (65 mg 325 mg PO DAILY 06/01/22 03/12/23 iron) tablet oxycodone 5 mg tablet 5 mg PO BID 06/01/22 03/12/23 cholecalciferol (vitamin D3) 1,250 50,000 unit PO WE 09/28/22 03/12/23 mcg (50,000 unit) capsule fluticasone propionate 50 2 spray intranasal Q12 09/28/22 03/12/23 mcg/actuation nasal spray,suspension multivitamin 1 tab PO DAILY 09/28/22 03/12/23 ondansetron 4 mg disintegrating 8 mg translingual BID PRN Nausea 09/28/22 03/12/23 tablet potassium chloride 10 mEq 10 meq PO DAILY PRN .When takes 09/28/22 03/12/23 capsule,extended release lasix umeclidinium 62.5 mcg-vilanterol 1 ea inhalation DAILY 09/28/22 03/12/23 25 mcg/actuation powdr for inhalation (Anoro Ellipta) rosuvastatin 10 mg tablet 10 mg PO HS 03/12/23 03/12/23 Previous Rx's Medication Instructions Recorded tamsulosin 0.4 mg capsule 0.4 mg PO HS #30 caps 03/24/22 diclofenac sodium 1 % topical gel 2 g EXT Q6H PRN back pain #100 10/03/22 (Voltaren Arthritis Pain) grams polyethylene glycol 3350 17 gram 17 g PO DAILY PRN laxative effect 10/03/22 oral powder packet (Miralax) #30 ea sennosides 8.6 mg-docusate sodium 1 tab PO QAM #30 tabs 10/03/22 50 mg tablet (Senokot-S) amoxicillin 875 mg-potassium 1 tab PO BID #8 tabs 03/17/23 clavulanate 125 mg tablet clonidine HCl 0.2 mg tablet 0.2 mg PO BID #60 tabs 03/17/23 felodipine 10 mg tablet,extended 10 mg PO DAILY #30 tabs 03/17/23 release 24 hr furosemide 20 mg tablet 20 mg PO Q2D@0900 #30 tabs 03/17/23 hydralazine 100 mg tablet 100 mg PO TID #90 tabs 03/17/23 Results & Data (ED) Vital Signs Vital Signs - 24 hr 07/18/23 11:53 07/18/23 11:57 07/18/23 12:13 Temperature 37.3 C Temperature Source Oral Pulse Rate 70 Pulse Rate [Right Finger] Pulse Rhythm Respiratory Rate 18 22 Respiratory Effort / Characteristics Non-Labored Spontaneous Labored Respiratory Depth Shallow Blood Pressure 159/77 H Blood Pressure [Left Arm] Blood Pressure Mean 104 Blood Pressure Mean [Left Arm] Pulse Oximetry 92 95 95 Oxygen Delivery Method Nasal Cannula Nasal Cannula Nasal Cannula Oxygen Flow Rate 3 4 Sepsis Recent Fever Within 48 Hours No Sepsis New/Unexplained Change in Mental Status Yes Sepsis Action Taken by Nursing Physician Notified Oxygen Flow Rate - Titration 4 07/18/23 12:13 07/18/23 12:40 07/18/23 12:40 Temperature Temperature Source Pulse Rate 72 73 Pulse Rate [Right Finger] 74 Pulse Rhythm Regular Respiratory Rate 22 24 24 Respiratory Effort / Characteristics Respiratory Depth Shallow Blood Pressure 157/120 H Blood Pressure [Left Arm] 157/120 H Blood Pressure Mean 142 Blood Pressure Mean [Left Arm] 132 Pulse Oximetry 95 100 100 Oxygen Delivery Method Nasal Cannula Aerosol Mask Oxygen Flow Rate 4 9 Sepsis Recent Fever Within 48 Hours Sepsis New/Unexplained Change in Mental Status Sepsis Action Taken by Nursing Oxygen Flow Rate - Titration 07/18/23 12:45 07/18/23 13:01 07/18/23 13:29 Temperature Temperature Source Pulse Rate 73 84 100 H Pulse Rate [Right Finger] Pulse Rhythm Respiratory Rate 24 18 Respiratory Effort / Characteristics Respiratory Depth Blood Pressure 162/106 H 183/64 H Blood Pressure [Left Arm] Blood Pressure Mean 119 103 Blood Pressure Mean [Left Arm] Pulse Oximetry 100 100 Oxygen Delivery Method Oxygen Flow Rate Sepsis Recent Fever Within 48 Hours Sepsis New/Unexplained Change in Mental Status Sepsis Action Taken by Nursing Oxygen Flow Rate - Titration 07/18/23 13:31 07/18/23 13:46 Temperature Temperature Source Pulse Rate 99 H 98 H Pulse Rate [Right Finger] Pulse Rhythm Respiratory Rate 20 24 Respiratory Effort / Characteristics Respiratory Depth Blood Pressure 188/62 H 198/59 H Blood Pressure [Left Arm] Blood Pressure Mean 100 97 Blood Pressure Mean [Left Arm] Pulse Oximetry 100 100 Oxygen Delivery Method Oxygen Flow Rate Sepsis Recent Fever Within 48 Hours Sepsis New/Unexplained Change in Mental Status Sepsis Action Taken by Nursing Oxygen Flow Rate - Titration Home Medications Current Medication List: was personally reviewed by me Laboratory Data Attestation: I reviewed the patient's lab results. 07/18/23 12:00 07/18/23 12:00 Lab Results 07/18/23 07/18/23 07/18/23 Range/Units 11:55 12:00 12:38 WBC 11.14 H (4.8-10.8) K/ul RBC 3.34 L (4.20-5.40) M/uL Hgb 9.2 L (12.0-16.0) g/dl Hct 29.6 L (37.0-47.0) % MCV 88.6 (80.0-100.0) fL MCH 27.5 (25.0-34.0) pg MCHC 31.1 L (32.0-36.0) g/dL RDW Std Deviation 44.1 (36.4-46.3) fL RDW Coeff of [place] 13.6 (11.5-14.5) % Plt Count 257 (130-400) K/uL MPV 10.4 (9.4-12.4) fL Immature Gran % (Auto) 0.8 % Neut % (Auto) 79.6 % Lymph % (Auto) 11.0 % [place] % (Auto) 6.6 % Eos % (Auto) 1.7 % Baso % (Auto) 0.3 % Neut # (Auto) 8.87 H (1.40-6.50) K/uL Lymph # (Auto) 1.23 (1.20-3.40) K/uL [place] # (Auto) 0.73 H (0.11-0.59) K/uL Eos # (Auto) 0.19 (0.00-0.50) K/uL Baso # (Auto) 0.03 (0.00-0.20) K/uL Immature Gran # (Auto) 0.09 (0.01-0.20) K/uL PT 10.6 (9.0-12.0) Seconds INR 1.0 (0.9-1.1) APTT 23 (21-31) Seconds PTT Ratio 0.8 VBG pH 7.37 (7.36-7.41) VBG pCO2 53 H (38-50) mmHg VBG pO2 123 mmHg VBG HCO3 31 mmol/L VBG O2 Saturation 99.5 % VBG Base Excess 4.5 mEq/L Sodium 140 (136-145) mmol/L Potassium 4.4 (3.5-5.1) mmol/L Chloride 100 (98-107) mmol/L Carbon Dioxide 32 (21-32) mmol/L Anion Gap 8 (3-11) BUN 45 H (6-23) mg/dl Creatinine 2.29 H (0.6-1.2) mg/dl Est Cr Clr Drug Dosing 18.6 ml/min Est GFR ( Amer) 22.8 ml/min Est GFR (Non-Af Amer) 19.7 ml/min BUN/Creatinine Ratio 19.7 (10-20) Glucose 135 H (70-99(Fasting)) mg/dl POC Glucose 152 H (70-99) mg/dl Lactate 0.8 (0.4-2.0) mmol/L Calcium 9.6 (8.6-10.3) mg/dl Magnesium 2.0 (1.7-2.4) mg/dl Total Bilirubin 0.3 (0.2-1.0) mg/dl Direct Bilirubin 0.0 (0-0.2) mg/dl AST 15 (13-39) U/L ALT 9 (7-52) U/L Alkaline Phosphatase 86 (34-104) U/L Total Creatine Kinase 59 (26-192) U/L Troponin I High Sens 675.0 H* (0-14) pg/ml Total Protein 7.7 (6.0-8.3) gm/dl Albumin 3.8 (3.4-5.0) gm/dl Procalcitonin 2.91 H (0-0.5) ng/ml Urine Color Yellow Urine Appearance Cloudy A (Clear) Urine pH 5.0 (4.5-7.5) Ur Specific [place] 1.014 (1.000-1.030) Urine Protein 2+ H (Negative) Urine Glucose (UA) Negative (Negative) Urine Ketones Negative (Negative) Urine Blood Negative (Negative) Urine Nitrite Negative (Negative) Urine Bilirubin Negative (Negative) Urine Urobilinogen Negative (Negative) Ur Leukocyte Esterase Trace H (Negative) Urine WBC (Auto) 11-20 H (0-5) /hpf Urine RBC (Auto) 0-2 (0-2) /hpf U Hyaline Cast (Auto) 11-20 H (0-2) /lpf U Epithel Cells (Auto) 3-5 H (0-2) /hpf Urine Bacteria (Auto) None Seen (None Seen) [place] Crystals Present H (None Prsent) Amorphous Sediment Present A (None Prsent) Granular Casts Present A (None Prsent) /lpf SARS-CoV-2 (PCR) (Negative) Influenza Type A (PCR) (Neg) Influenza Type B (PCR) (Neg) RSV (RT-PCR) (Neg) 07/18/23 Range/Units Unknown WBC (4.8-10.8) K/ul RBC (4.20-5.40) M/uL Hgb (12.0-16.0) g/dl Hct (37.0-47.0) % MCV (80.0-100.0) fL MCH (25.0-34.0) pg MCHC (32.0-36.0) g/dL RDW Std Deviation (36.4-46.3) fL RDW Coeff of [place] (11.5-14.5) % Plt Count (130-400) K/uL MPV (9.4-12.4) fL Immature Gran % (Auto) % Neut % (Auto) % Lymph % (Auto) % [place] % (Auto) % Eos % (Auto) % Baso % (Auto) % Neut # (Auto) (1.40-6.50) K/uL Lymph # (Auto) (1.20-3.40) K/uL [place] # (Auto) (0.11-0.59) K/uL Eos # (Auto) (0.00-0.50) K/uL Baso # (Auto) (0.00-0.20) K/uL Immature Gran # (Auto) (0.01-0.20) K/uL PT (9.0-12.0) Seconds INR (0.9-1.1) APTT (21-31) Seconds PTT Ratio VBG pH (7.36-7.41) VBG pCO2 (38-50) mmHg VBG pO2 mmHg VBG HCO3 mmol/L VBG O2 Saturation % VBG Base Excess mEq/L Sodium (136-145) mmol/L Potassium (3.5-5.1) mmol/L Chloride (98-107) mmol/L Carbon Dioxide (21-32) mmol/L Anion Gap (3-11) BUN (6-23) mg/dl Creatinine (0.6-1.2) mg/dl Est Cr Clr Drug Dosing ml/min Est GFR ( Amer) ml/min Est GFR (Non-Af Amer) ml/min BUN/Creatinine Ratio (10-20) Glucose (70-99(Fasting)) mg/dl POC Glucose (70-99) mg/dl Lactate (0.4-2.0) mmol/L Calcium (8.6-10.3) mg/dl Magnesium (1.7-2.4) mg/dl Total Bilirubin (0.2-1.0) mg/dl Direct Bilirubin (0-0.2) mg/dl AST (13-39) U/L ALT (7-52) U/L Alkaline Phosphatase (34-104) U/L Total Creatine Kinase (26-192) U/L Troponin I High Sens (0-14) pg/ml Total Protein (6.0-8.3) gm/dl Albumin (3.4-5.0) gm/dl Procalcitonin (0-0.5) ng/ml Urine Color Urine Appearance (Clear) Urine pH (4.5-7.5) Ur Specific [place] (1.000-1.030) Urine Protein (Negative) Urine Glucose (UA) (Negative) Urine Ketones (Negative) Urine Blood (Negative) Urine Nitrite (Negative) Urine Bilirubin (Negative) Urine Urobilinogen (Negative) Ur Leukocyte Esterase (Negative) Urine WBC (Auto) (0-5) /hpf Urine RBC (Auto) (0-2) /hpf U Hyaline Cast (Auto) (0-2) /lpf U Epithel Cells (Auto) (0-2) /hpf Urine Bacteria (Auto) (None Seen) [place] Crystals (None Prsent) Amorphous Sediment (None Prsent) Granular Casts (None Prsent) /lpf SARS-CoV-2 (PCR) NEGATIVE (Negative) Influenza Type A (PCR) Negative (Neg) Influenza Type B (PCR) Negative (Neg) RSV (RT-PCR) Negative (Neg) Administered Medications Ceftriaxone Sodium (Rocephin) 2,000 mg in 50 mls @ 100 mls/hr IV Q24H SABAS Stop: 07/20/23 12:59 Last Infusion: 07/18/23 13:58 Dose: Infused Documented By: Admin: 07/18/23 13:10 Dose: 100 mls/hr Documented By: GRAY Sodium Chloride (Nss) 1,000 mls @ 999 mls/hr IV .Q1H1M ONE Stop: 07/18/23 14:09 Last Admin: 07/18/23 13:23 Dose: 999 mls/hr Documented By: GRAY Discontinued Medications Albuterol (Albut/Ipratrop 3mg/0.5mg Neb 3 Ml Vial) 12 ml NEB ONE ONE; Protocol Stop: 07/18/23 11:35 Last Admin: 07/18/23 11:52 Dose: 12 ml Documented By: HANNAH Dexamethasone Sodium Phosphate (DexamethasonePf 10 Mg/Ml Vial) 10 mg IV NOW ONE Stop: 07/18/23 11:35 Last Admin: 07/18/23 12:47 Dose: 10 mg Documented By: NIVIA Imaging Data Attestation: I personally reviewed and interpreted this imaging study as follows: My Impression: 1 view chest x-ray was obtained in the emergency department. My interpretation is right-sided infiltrate, final report below. CT of the brain was obtained in the emergency department. My interpretation is no intracranial hemorrhage or mass effect, final report below Radiologist's Impression: Chest X-Ray 07/18/23 11:34 SINGLE VIEW CHEST CLINICAL HISTORY: Sepsis FINDINGS: An AP, portable, upright chest radiograph is compared to study dated 03/12/2023. The heart is enlarged. The pulmonary vasculature is noncongested. Emphysema and chronic interstitial thickening is similar to previous. Postsurgical change and volume loss is noted in the right lung. Airspace consolidation is seen at the right lung base. Left lung appears clear. No large pleural effusion pneumothorax is identified. The skeletal structures are osteopenic. The bony thorax is grossly intact. 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 IMPRESSION: 1. Cardiomegaly and emphysema without radiographic evidence of congestive failure. 2. There is airspace consolidation at the right lung base. Correlate clinically for symptoms of pneumonia/aspiration pneumonitis. Radiographic follow-up to resolution is recommended. ACT 112: Negative or not required by law. Electronically signed by: Horacio Motta M.D. 07/18/2023 12:[address] 07/18/23 13:[address] DOSE: HISTORY: Altered mental status. TECHNIQUE: Multiaxial CT images of the head were performed without the use of intravenous contrast. Automated exposure control was utilized for this study. A dose lowering technique was utilized adhering to the principles of ALARA. Comparison: Head CT 10/01/2022. Findings: The paranasal sinuses and mastoid air cells are clear. The calvarium and skull base are intact. There is no mass, hematoma, midline shift, acute infarct. White matter hypodensity is nonspecific but suggestive of microvascular ischemic change. The ventricles and sulci demonstrate mild age-related involutional changes. Impression: No significant change compared to the prior study. No acute intracranial abnormality. ACT 112: Negative or not required by law. Electronically signed by: Randy Waldron M.D. 07/18/2023 1:34 PM Abdomen/Pelvis CT 07/18/23 13:[address] WITHOUT CONTRAST CT DOSE: 2651.17 mGy.cm HISTORY: Acutely altered mental status with generalized abdominal pain ams TECHNIQUE: Multiaxial CT images of the abdomen and pelvis were performed without contrast. A dose lowering technique was utilized adhering to the principles of ALARA. COMPARISON STUDY: Chest CT of same day, CT abdomen and pelvis 09/28/2022, 04/01/2022. FINDINGS: Mild cardiomegaly. Small right and trace left pleural effusions. Right basilar predominant mucus plugging with patchy right greater than left bibasilar mixed groundglass and consolidative opacities. There is a 2 cm nodular focus of consolidation within the basal left lower lobe on image 50. Mild intralobular septal thickening. No free air. Unremarkable unenhanced spleen, and right adrenal gland. Nodular left adrenal gland thickening suggestive of hyperplasia. There is cholelithiasis with possible subcentimeter gallbladder polyp. Mild dilation of the common bile duct, 11 mm. This is unchanged. No choledocholithiasis identified. There is atrophy of the pancreatic body and tail with subcentimeter pancreatic body calcifications measuring up to proximally 4 mm on image 99 series 9. There is upstream pancreatic ductal dilation within the area of atrophy. Unremarkable liver. There is bilateral perinephric stranding. There are a few nonobstructing calculi of the right kidney measuring up to 4 mm. Bilateral renal cysts. Mild urothelial thickening of the right renal collecting system and renal pelvis. Decompressed urinary bladder with Kebede catheter in place. Hysterectomy. Air within the urinary bladder lumen. Atherosclerosis of the aorta and branch vessels. 1.5 x 1.0 cm left iliac chain lymph node on image 179 is unchanged. Mild nonspecific distal esophageal wall thickening. No bowel obstruction. Rectal wall thickening with partial distention. Colonic diverticulosis. Sigmoid colon wall thickening with partial distention. No CT evidence of acute appendicitis. No acute fracture. Chronic fracture deformity of the right proximal femur. Left femoral/hip ORIF hardware. IMPRESSION: 1. Trace left and small right pleural effusions with right greater than left bibasilar opacities. Please refer to the chest CT same day for additional discussion. 2. Atrophy of the pancreatic tail is again noted with associated ductal dilation. The 4.5 cm cystic pancreatic mass described on the 04/01/2022 study is no longer present and may have been excised. 3. Urothelial thickening of the right renal collecting system and ureter. Correlate with urinalysis to exclude infection. 4. Nonobstructing right nephrolithiasis. 5. Chronic right femoral neck fracture deformity. 6. Cholelithiasis. 7. Additional findings as above. ACT 112: Negative or not required by law. The above report was generated using voice recognition software. It may contain grammatical, syntax or spelling errors. Electronically signed by: Mani Ramos M.D. 07/18/2023 1:[address] 07/18/23 13:09 CT SCAN OF THE CHEST WITHOUT IV CONTRAST CLINICAL HISTORY: Dyspnea on exertion. COMPARISON STUDY: Chest CT dated 01/21/2022. Chest x-ray dated 07/18/2003. TECHNIQUE: CT scan of the thorax was performed from the thoracic inlet to the upper abdomen. Images are reviewed in the axial, sagittal, and coronal planes. IV contrast was not administered for this examination as per the referring clinician. A dose lowering technique was utilized adhering to the principles of ALARA. FINDINGS: Thyroid: Imaged portions of the thyroid gland are normal in size and attenuation. Thoracic aorta: There is atherosclerotic calcification of the thoracic aorta, which is normal in caliber and demonstrates standard 3-vessel arch anatomy. Heart: The heart is mildly enlarged and without pericardial effusion. There are coronary artery calcifications. Lungs and pleural spaces: Emphysematous change is observed. There is multifocal patchy airspace consolidation seen throughout both lungs, greatest the right lung base. A small right pleural effusion is observed. Trace pleural fluid seen on the left. The trachea and central airways appear clear. Mediastinum: Mildly enlarged mesorectal lymph nodes measure up to 11 mm in short axis. Sandy: Not well assessed without IV contrast. Axillae: There is no axillary lymphadenopathy. Upper abdomen: Partially visualized upper abdominal viscera is within normal limits. Skeletal structures: The skeletal structures are osteopenic. No lytic or blastic bony lesions are seen. Degenerative change is seen in the thoracic spine. Advanced arthritic change is noted in the shoulders. IMPRESSION: 1. Cardiomegaly and emphysema. 2. Multifocal patchy airspace consolidation is typical for pneumonia. Clinical correlation will be required and radiographic follow-up to resolution is recommended. 3. Small right and trace left pleural effusions. 4. Mildly enlarged mediastinal lymph nodes are nonspecific and likely reactive. 5. Additional findings as above. ACT 112: Negative or not required by law. Electronically signed by: Horacio Motta M.D. 07/18/2023 1:54 PM Discharge Plan Visit Data Chief Complaint: Altered Mental Status Stated Complaint: HYPOXIA, AMS ED Provider: [facility] Discharge Problem: Respiratory failure, NANCY (acute kidney injury), Pneumonia, Acute alteration in mental status, Elevated troponin I level Patient Disposition: Being Evaluated by Hospitalist Forms Stand Alone Forms: [facility] Prescriptions Prescriptions: No Action alprazolam [Xanax] 0.5 mg Tablet 0.25 - 0.5 mg PO BID PRN (Reason: Anxiety) pantoprazole [Protonix] 40 mg Tablet,Delayed Release (Dr/Ec) 40 mg PO BID loratadine [Claritin] 10 mg Tablet 10 mg PO QAM albuterol sulfate 90 mcg/actuation Hfa Aerosol Inhaler 2 puff INHALATION DIRECTED PRN (Reason: Shortness Of Breath) tamsulosin 0.4 mg capsule 0.4 mg PO HS Qty: 30 0RF aspirin 81 mg Tablet,Delayed Release (Dr/Ec) 81 mg PO DAILY multivitamin Tablet 1 tab PO DAILY potassium chloride 10 mEq capsule, extended release 10 meq PO DAILY PRN (Reason: .When takes lasix) ondansetron 4 mg tablet,disintegrating 8 mg translingual BID PRN (Reason: Nausea) fluticasone propionate 50 mcg/actuation spray,suspension 2 spray INTRANASAL Q12 cholecalciferol (vitamin D3) 1,250 mcg (50,000 unit) capsule 50,000 unit PO WE Anoro Ellipta 62.5-25 mcg/actuation blister with device 1 ea INHALATION DAILY diclofenac sodium [Voltaren Arthritis Pain] 1 % Gel 2 g EXT Q6H PRN (Reason: back pain) Qty: 100 0RF Rx Instructions: over upper mid back area for pain, every 6 hours as needed for mild to moderate pain polyethylene glycol 3350 [Miralax] 17 gram Powder In Packet 17 g PO DAILY PRN (Reason: laxative effect) Qty: 30 0RF Rx Instructions: Pt doesnt like taking sennosides-docusate sodium [Senokot-S] 8.6-50 mg Tablet 1 tab PO QAM Qty: 30 0RF rosuvastatin 10 mg Tablet 10 mg PO HS amoxicillin-pot clavulanate 875-125 mg tablet 1 tab PO BID Qty: 8 0RF felodipine 10 mg tablet extended release 24 hr 10 mg PO DAILY Qty: 30 0RF hydralazine 100 mg tablet 100 mg PO TID Qty: 90 0RF clonidine HCl 0.2 mg tablet 0.2 mg PO BID Qty: 60 0RF furosemide 20 mg Tablet 20 mg PO Q2D@0900 Qty: 30 0RF ferrous sulfate 325 mg (65 mg iron) Tablet 325 mg PO DAILY escitalopram oxalate 5 mg Tablet 5 mg PO DAILY oxycodone 5 mg Tablet 5 mg PO BID Referrals Referrals: PCP,NO [Primary Care Provider] - Discharge Problem: Respiratory failure Qualifiers: Chronicity: acute Respiratory failure complication: hypoxia Qualified Code(s): J96.01 - Acute respiratory failure with hypoxia Pneumonia Qualifiers: Pneumonia type: due to unspecified organism Laterality: right Lung location: u nspecified part of lung Qualified Code(s): J18.9 - Pneumonia, unspecified organism
[2023-07-18] MEDS: ALBUT/IPRATROP 3MG/0.5MG NEB 3 ML VIAL NEB ONE (11:52)
[2023-07-18 12:23] LABS: Base Excess VBG 4.5 mEq/L; HCO3 VBG 31 mmol/L; Oxygen Saturation VBG 99.5 %; PCO2 VBG 53 mmHg (38-50); PO2 VBG 123 mmHg; pH VBG 7.37 (7.36-7.41)
--- NOTE | 2023-07-18 12:27 | XRay Report ---
SINGLE VIEW CHEST CLINICAL HISTORY: Sepsis FINDINGS: An AP, portable, upright chest radiograph is compared to study dated 03/12/2023. The heart is enlarged. The pulmonary vasculature is noncongested. Emphysema and chronic interstitial thickening is similar to previous. Postsurgical change and volume loss is noted in the right lung. Airspace con solidation is seen at the right lung base. Left lung appears clear. No large pleural effusion pneumot horax is identified. The skeletal structures are osteopenic. The bony thorax is grossly intact. 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 IMPRESSION: 1. Cardiomegaly and emphysema without radiographic evidence of congestive failure. 2. There is airspace consolidation at the right lung base. Correlate clinically for symptoms of pneum onia/aspiration pneumonitis. Radiographic follow-up to resolution is recommended. ACT 112: Negative or not required by law. Electronically signed by: Horacio Motta M.D. 07/18/2023 12:25 PM
[2023-07-18 12:32] LABS: Basophils # (auto) 0.03 K/uL (0.00-0.20); Basophils % (auto) 0.3 %; Eosinophils # (auto) 0.19 K/uL (0.00-0.50); Eosinophils % (auto) 1.7 %; Hematocrit (blood only) 29.6 % (37.0-47.0); Hemoglobin 9.2 g/dl (12.0-16.0); Immature Granulocytes # (auto) 0.09 K/uL (0.01-0.20); Immature Granulocytes % (auto) 0.8 %; Lymphocytes # (auto) 1.23 K/uL (1.20-3.40); Mean Corpuscular Hemoglobin 27.5 pg (25.0-34.0); Mean Corpuscular Hgb Conc 31.1 g/dL (32.0-36.0); Mean Corpuscular Volume 88.6 fL (80.0-100.0); Mean Platelet Volume 10.4 fL (9.4-12.4); Monocytes # (auto) 0.73 K/uL (0.11-0.59); Monocytes % (auto) 6.6 %; Neutrophils # (auto) 8.87 K/uL (1.40-6.50); Neutrophils % (auto) 79.6 %; Platelet Count 257 K/uL (130-400); RDW Coefficient of Variation 13.6 % (11.5-14.5); RDW Standard Deviation 44.1 fL (36.4-46.3); Red Blood Count 3.34 M/uL (4.20-5.40); White Blood Count 11.14 K/ul (4.8-10.8)
[2023-07-18 12:34] LABS: Appearance Urine Cloudy (Clear); Bacteria Urine Automated None Seen (None Seen); Bilirubin Urine Negative (Negative); Blood Urine Negative (Negative); Color Urine Yellow; Glucose Urine UA Negative (Negative); Ketones Urine Negative (Negative); Leukocyte Esterase Urine Trace (Negative); Nitrite Urine Negative (Negative); Protein Urine 2+ (Negative); RBC Urine Automated 0-2 /hpf (0-2); Specific Gravity Urine 1.014 (1.000-1.030); Urobilinogen Urine Negative (Negative)
[2023-07-18] MEDS: dexAMETHasone**PF** 10 MG/ML VIAL IV ONE (12:47)
[2023-07-18 12:53] LABS: Partial Thromboplastin Ratio 0.8; Partial Thromboplastin Time 23 Seconds (21-31); Prothrombin Time 10.6 Seconds (9.0-12.0)
[2023-07-18 12:53] LABS: Starch Talc Urine Present (None Prsent)
[2023-07-18 12:57] LABS: Amorphous Sediment Urine Present (None Prsent)
[2023-07-18 12:59] LABS: Granular Casts Urine Present /lpf (None Prsent)
[2023-07-18 13:01] LABS: Potassium 4.4 mmol/L (3.5-5.1)
[2023-07-18 13:03] LABS: Albumin Level 3.8 gm/dl (3.4-5.0); BUN Creatinine Ratio 19.7 (10-20); Bilirubin,Total 0.3 mg/dl (0.2-1.0); Calcium 9.6 mg/dl (8.6-10.3); Creatinine Clr Calc Pharmacy 18.6 ml/min; Est GFR (African American) 22.8 ml/min; Est GFR (Non-African American) 19.7 ml/min; Total Protein 7.7 gm/dl (6.0-8.3)
[2023-07-18] MEDS: cefTRIAXone SODIUM 2,000 MG/50 ML BAG IV SCH (13:10)
[2023-07-18] MEDS: SODIUM CHLORIDE 0.9% 1,000 ML IV ONE ×2 (13:23→14:59)
--- NOTE | 2023-07-18 13:36 | CT Scan Report ---
HEAD CT NONCONTRAST CT DOSE: HISTORY: Altered mental status. TECHNIQUE: Multiaxial CT images of the head were performed without the use of intravenous contrast. A utomated exposure control was utilized for this study. A dose lowering technique was utilized adheri ng to the principles of ALARA. Comparison: Head CT 10/01/2022. Findings: The paranasal sinuses and mastoid air cells are clear. The calvarium and skull base are int act. There is no mass, hematoma, midline shift, acute infarct. White matter hypodensity is nonspecifi c but suggestive of microvascular ischemic change. The ventricles and sulci demonstrate mild age-rela mary involutional changes. Impression: No significant change compared to the prior study. No acute intracranial abnormality. ACT 112: Negative or not required by law. Electronically signed by: Randy Waldron M.D. 07/18/2023 1:34 PM
[2023-07-18 13:37] LABS: Influenza A virus by PCR Negative (Neg); Influenza B virus by PCR Negative (Neg); RSV by PCR Negative (Neg); SARS CoV2 RNA(COVID-19) Ceph NEGATIVE (Negative)
--- NOTE | 2023-07-18 13:38 | CT Scan Report ---
ABDOMEN AND PELVIS CT WITHOUT CONTRAST CT DOSE: 2651.17 mGy.cm HISTORY: Acutely altered mental status with generalized abdominal pain ams TECHNIQUE: Multiaxial CT images of the abdomen and pelvis were performed without contrast. A dose lo wering technique was utilized adhering to the principles of ALARA. COMPARISON STUDY: Chest CT of same day, CT abdomen and pelvis 09/28/2022, 04/01/2022. FINDINGS: Mild cardiomegaly. Small right and trace left pleural effusions. Right basilar predominant mucus plugging with patchy right greater than left bibasilar mixed groundglass and consolidative opac ities. There is a 2 cm nodular focus of consolidation within the basal left lower lobe on image 50. M ild intralobular septal thickening. No free air. Unremarkable unenhanced spleen, and right adrenal gland. Nodular left adrenal gland thickening sugges tive of hyperplasia. There is cholelithiasis with possible subcentimeter gallbladder polyp. Mild dila tion of the common bile duct, 11 mm. This is unchanged. No choledocholithiasis identified. There is a trophy of the pancreatic body and tail with subcentimeter pancreatic body calcifications measuring up to proximally 4 mm on image 99 series 9. There is upstream pancreatic ductal dilation within the are a of atrophy. Unremarkable liver. There is bilateral perinephric stranding. There are a few nonobstructing calculi of the right kidney measuring up to 4 mm. Bilateral renal cysts. Mild urothelial thickening of the right renal collecting system and renal pelvis. Decompressed urinary bladder with Kebede catheter in place. Hysterectomy. r within the urinary bladder lumen. Atherosclerosis of the aorta and branch vessels. 1.5 x 1.0 cm lef t iliac chain lymph node on image 179 is unchanged. Mild nonspecific distal esophageal wall thickening. No bowel obstruction. Rectal wall thickening with partial distention. Colonic diverticulosis. Sigmoid colon wall thickening with partial distention. N o CT evidence of acute appendicitis. No acute fracture. Chronic fracture deformity of the right proxi mal femur. Left femoral/hip ORIF hardware. IMPRESSION: 1. Trace left and small right pleural effusions with right greater than left bibasilar opacities. Ple ase refer to the chest CT same day for additional discussion. 2. Atrophy of the pancreatic tail is again noted with associated ductal dilation. The 4.5 cm cystic p ancreatic mass described on the 04/01/2022 study is no longer present and may have been excised. 3. Urothelial thickening of the right renal collecting system and ureter. Correlate with urinalysis t o exclude infection. 4. Nonobstructing right nephrolithiasis. 5. Chronic right femoral neck fracture deformity. 6. Cholelithiasis. 7. Additional findings as above. ACT 112: Negative or not required by law. The above report was generated using voice recognition software. It may contain grammatical, syntax o r spelling errors. Electronically signed by: Mani Ramos M.D. 07/18/2023 1:37 PM
--- NOTE | 2023-07-18 13:56 | CT Scan Report ---
CT SCAN OF THE CHEST WITHOUT IV CONTRAST CLINICAL HISTORY: Dyspnea on exertion. COMPARISON STUDY: Chest CT dated 01/21/2022. Chest x-ray dated 07/18/2003. TECHNIQUE: CT scan of the thorax was performed from the thoracic inlet to the upper abdomen. Images are reviewed in the axial, sagittal, and coronal planes. IV contrast was not administered for this ex amination as per the referring clinician. A dose lowering technique was utilized adhering to the rui genaro of FROYLAN. FINDINGS: Thyroid: Imaged portions of the thyroid gland are normal in size and attenuation. Thoracic aorta: There is atherosclerotic calcification of the thoracic aorta, which is normal in leti byron and demonstrates standard 3-vessel arch anatomy. Heart: The heart is mildly enlarged and without pericardial effusion. There are coronary artery calci fications. Lungs and pleural spaces: Emphysematous change is observed. There is multifocal patchy airspace conso lidation seen throughout both lungs, greatest the right lung base. A small right pleural effusion is observed. Trace pleural fluid seen on the left. The trachea and central airways appear clear. Mediastinum: Mildly enlarged mesorectal lymph nodes measure up to 11 mm in short axis. Sandy: Not well assessed without IV contrast. Axillae: There is no axillary lymphadenopathy. Upper abdomen: Partially visualized upper abdominal viscera is within normal limits. Skeletal structures: The skeletal structures are osteopenic. No lytic or blastic bony lesions are see n. Degenerative change is seen in the thoracic spine. Advanced arthritic change is noted in the shoul ders. IMPRESSION: 1. Cardiomegaly and emphysema. 2. Multifocal patchy airspace consolidation is typical for pneumonia. Clinical correlation will be re quired and radiographic follow-up to resolution is recommended. 3. Small right and trace left pleural effusions. 4. Mildly enlarged mediastinal lymph nodes are nonspecific and likely reactive. 5. Additional findings as above. ACT 112: Negative or not required by law. Electronically signed by: Horacio Motta M.D. 07/18/2023 1:54 PM
--- NOTE | 2023-07-18 14:05 | History & Physical Report ---
Date of Service July 18, 2023 Assessment & Plan (1) Hypertensive heart disease with chronic diastolic congestive heart failure: (2) NANCY (acute kidney injury): (3) Elevated troponin I level: (4) Acute alteration in mental status: (5) Pneumonia: (6) Respiratory failure: Plan Ms. Dewey is a 78-year-old woman who has significant past medical history of chronic hypoxic respiratory failure on 2-3 L of oxygen, COPD, HTN, HLD, CKD-3b, gastritis, GERD, IBS, depression with anxiety, history of tobacco abuse and wheelchair-bound status 2/2 congenital hip dysplasia s/p multiple surgeries, as well as chronic opioid use who presents to [facility] due to altered mental status. Patient with decline over last week per daughter. Imaging concerning for pneumonia and volume overload. BNP elevated. Troponin like elevated from demand 2/2 infection/htn urgency/hfpef #Acute metabolic encephalopathy likely secondary to underlying pneumonia and exacerbation of HF Delirium precautions plan as below #Acute on chronic respiratory failure with hypoxia, hypercapnia, multifactorial #c/f bacterial pneumonia #COPD, stable Procal 2.91, biofire negative -Continue home inhalers -Duonebs prn -Schedule mucinex BID, flutter valve -Assess response to IV lasix Wean o2 prn Continue CTX and doxycycline #Acute HFpEF Exacerbation #Hypertensive Urgency #Elevated Troponin, like demand iso hypertension -ECHO with EF 65%, but new pulm htn, mitral/tricupsid regurg, no documented right heart strain, no wall motion abnormalities -Home regimen: hydralazine 100mg BID, clonidine 0.1 BID, felodipine 10mg qhs -s/p hydralazine 5 mg IV and PO home meds -s/p lasix 20 in ED, reassess in am -Strict I/Os, daily weights -Trend troponin to peak #NANCY on CKD IIIb Likely multifactorial--patient notably hypertensive, ?overload, unclear story -s/p 20mg IV lasix give 1L fluid and BNP 546 -Cr. 2.29, repeat BMP in am avoid nephrotoxic agents #HLD Continue home ASA and rosuvastatin #Allergic rhinitis -Continue home flonase and loratadine #Depression #Anxiety -Continue home lexapro -Continue home xanax bid (also for burning mouth syndrome) #Chronic iron deficiency anemia -stable hgb -Continue home iron supplementation #GERD -Continue protonix daily #Nephrolithiasis c/b hydronephrosis s/p stenting 2021 -continue home tamsulosin 0.4 mg qam #Chronic pain on chronic opioids #Congenital Hip dysplasia s/p multiple surgeries #Burning mouth syndrome - Continue home Oxy 5 TID prn -Senakot scheduled DVT heparin sq Diet HH Admit PCU/tele Admission and Anticipated Discharge Date Admission Date: Time spent evaluating patient, direct bedside care, chart review, placing orders, interpretation of diagnostic studies, discussion with consultants, patient, and family members, as well as other required patient management activities is 60 minutes. History of Present Illness Chief Complaint: [facility] Primary Care Provider: NO PCP Ms. Dewey is a 78-year-old woman who has significant past medical history of chronic hypoxic respiratory failure on 2-3 L of oxygen, COPD, HTN, HLD, CKD-3b, gastritis, GERD, IBS, depression with anxiety, history of tobacco abuse and wheelchair-bound status 2/2 congenital hip dysplasia s/p multiple surgeries, as well as chronic opioid use who presents to [facility] due to altered mental status. Patient states she isn't clear why she is in the hospital. She notes that she is feeling better, but isn't sure why she is in the hospital. She denies feeling ill, chest pain, palpitations and simply states "[she] wants to go home." She is chronically on 2L NC. At baseline, she has SOB on exertion. She experiences chronic pain and suffers with burning mouth syndrome. Further history gathered from daughter on phone. The daughter reports that the patient doesn't drink much fluids and is consistently being encouraged to drink. Patient has been with decreased appetite and fluid intake more so in the last week. Patient endorsing more fatigue in recent days. Patient was found in bed without oxygen on her nose this morning with low oxygen levels in the 60s- it is unclear how long she was asleep without her o2. Labs revealed BUN 45, Cr. 2.29. BNP 564, Trop up to 833 procal 2.91 VBG with pCO2 of 53 (c/w baseline on prior) No medications this morning. Patient states her name, the year 2023, thought it was Monday, and knew she was in a hospital--not clear which one she was brought to In the ED, vitals were notable for BP of up to 190s-200s, HR of 90s, and O2 sat of high 90s-100 on 6L NC on exam Imaging revealed concerns for pneumonia, trace pleural effusion, mediastinal LAD EKG with PVCs ED interventions: dex 10, ctx, albuterol, s/p 1 L IV Additional: home po clonidine and IV hydral Patient to be admitted to PCU/tele for further evaluation and management of altered mental status and concern for pneumonia Allergies Allergy/AdvReac Type Severity Reaction Status Date / Time metronidazole [From Flagyl] Allergy Severe SHORTNESS Verified 03/12/23 08:36 OF BREATH amlodipine AdvReac Intermediate left leg Verified 03/12/23 08:36 numbness cefuroxime AdvReac Intermediate Gastrointestinal Verified 03/12/23 08:36 Upset Cephalosporins AdvReac Intermediate Gastrointestinal Verified 03/12/23 08:36 Upset ciprofloxacin AdvReac Intermediate Gastrointestinal Verified 03/12/23 08:36 Upset erythromycin base AdvReac Intermediate Gastrointestinal Verified 03/12/23 08:36 Upset sulfamethoxazole AdvReac Intermediate hyperkalemi Verified 03/12/23 08:36 [From Bactrim] a trimethoprim [From Bactrim] AdvReac Intermediate hyperkalemi Verified 03/12/23 08:36 a Home Medications Medication Instructions Recorded Confirmed Type albuterol sulfate 90 mcg/actuation 2 puff inhalation DIRECTED PRN 12/21/21 07/18/23 History aerosol inhaler Shortness Of Breath alprazolam 0.5 mg tablet (Xanax) 0.25 - 0.5 mg PO BID Anxiety 12/21/21 07/18/23 History loratadine 10 mg tablet (Claritin) 10 mg PO QAM 12/21/21 07/18/23 History pantoprazole 40 mg tablet,delayed 40 mg PO DAILY 12/21/21 07/18/23 History release (Protonix) aspirin 81 mg tablet,delayed 81 mg PO DAILY 04/01/22 07/18/23 History release escitalopram oxalate 5 mg tablet 5 mg PO DAILY 06/01/22 07/18/23 History ferrous sulfate 325 mg (65 mg 325 mg PO DAILY 06/01/22 07/18/23 History iron) tablet oxycodone 5 mg tablet 5 mg PO TID PRN Pain (Scale Score 06/01/22 07/18/23 History 7-10) cholecalciferol (vitamin D3) 1,250 50,000 unit PO WE 09/28/22 07/18/23 History mcg (50,000 unit) capsule fluticasone propionate 50 2 spray intranasal Q12 09/28/22 07/18/23 History mcg/actuation nasal spray,suspension multivitamin 1 tab PO DAILY 09/28/22 07/18/23 History ondansetron 4 mg disintegrating 8 mg translingual BID PRN Nausea 09/28/22 07/18/23 History tablet umeclidinium 62.5 mcg-vilanterol 1 ea inhalation DAILY 09/28/22 07/18/23 History 25 mcg/actuation powdr for inhalation (Anoro Ellipta) diclofenac sodium 1 % topical gel 2 g EXT Q6H PRN back pain #100 10/03/22 07/18/23 Rx (Voltaren Arthritis Pain) grams sennosides 8.6 mg-docusate sodium 1 tab PO QAM #30 tabs 10/03/22 07/18/23 Rx 50 mg tablet (Senokot-S) rosuvastatin 10 mg tablet 10 mg PO HS 03/12/23 07/18/23 History clonidine HCl 0.2 mg tablet 0.1 mg PO BID 07/18/23 07/18/23 History felodipine 10 mg tablet,extended 10 mg PO HS 07/18/23 07/18/23 History release 24 hr furosemide 20 mg tablet 20 mg PO Q2D 07/18/23 07/18/23 History hydralazine 100 mg tablet 100 mg PO BID 07/18/23 07/18/23 History tamsulosin 0.4 mg capsule 0.4 mg PO QAM 07/18/23 07/18/23 History 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 Head: (-) headache, (-) dizziness. Eye: (-) blurring of vision, (-) double vision, (-) redness. Ear: (-) hearing loss, (-) discharge, (-) vertigo Nose: (-) discharge, (-) bleeding, (-) congestion, (-) post nasal drip. Throat: (-) sore throat, (-) hoarseness of voice, (-) odynophagia. Cardiovascular: (-) chest pain, (-) palpitations, (-) syncope, (-) orthopnea, (- ) PND, (-) leg swelling. Respiratory: (-) shortness of breath, (-) cough, (-) wheezing, (-) hemoptysis. Neuro: (-) weakness in extremities, (-) numbness, (-) tingling, (-) tremor. Gastrointestinal: (-) belly pain, (-) belly distension, (-) nausea, (-) vomiting, (-) diarrhea, (-) constipation Genitourinary: (-) hematuria, (-) dysuria, (-) polyuria, (-) hesitancy, (-) frequency, (-) urinary incontinence. Musculoskeletal: (-) myalgia, (-) arthralgia. Endocrine: (-) heat/cold intolerance. Physical Exam Physical Exam: GENERAL APPEARANCE: AxOx2,frail woman, but no acute distress HEENT: NC, AT. MMM. EOMI, clear conjunctiva, oropharynx clear. NECK: Supple without lymphadenopathy. No stiffness or restricted ROM. HEART: tachycardic SUYAPA+ LUNGS: diminished breath sounds, poor airway movement (more 2/2 effort), occasional rhonchi ABDOMEN: Soft, nontender, nondistended with good bowel sounds heard. EXTREMITIES: Without cyanosis, clubbing or edema. NEUROLOGICAL: Grossly nonfocal. Alert and oriented, moving all extremities; however, minimal BLE movement 2/2 pain . CN not formally tested but appear grossly intact. Skin: Warm and dry without any rash. Results & Data Results & Data Vital Signs (Past 12 Hours) Vital Signs Temp Pulse Pulse Resp BP BP Pulse Ox 07/18/23 13:46 98 H 24 198/59 H 100 07/18/23 13:31 99 H 20 188/62 H 100 07/18/23 13:29 100 H 07/18/23 13:01 84 18 183/64 H 100 07/18/23 12:45 73 24 162/106 H 100 07/18/23 12:40 73 24 157/120 H 100 07/18/23 12:40 74 24 157/120 H 100 07/18/23 12:13 72 22 95 07/18/23 12:13 37.3 C 70 22 159/77 H 95 07/18/23 11:57 95 07/18/23 11:53 18 92 O2 Del Method O2 Flow Rate 07/18/23 13:46 07/18/23 13:31 07/18/23 13:29 07/18/23 13:01 07/18/23 12:45 07/18/23 12:40 07/18/23 12:40 Aerosol Mask 9 07/18/23 12:13 Nasal Cannula 4 07/18/23 12:13 Nasal Cannula 4 07/18/23 11:57 Nasal Cannula 07/18/23 11:53 Nasal Cannula 3 Laboratory Results Short CBC 07/18/23 Range/Units 12:00 WBC 11.14 H (4.8-10.8) K/ul Hgb 9.2 L (12.0-16.0) g/dl Hct 29.6 L (37.0-47.0) % Plt Count 257 (130-400) K/uL BMP 07/18/23 12:00 Sodium 140 Potassium 4.4 Chloride 100 Carbon Dioxide 32 BUN 45 H Creatinine 2.29 H Glucose 135 H Calcium 9.6 Cardiac Enzymes 07/18/23 Range/Units 12:00 Total Creatine Kinase 59 (26-192) U/L Liver Function 07/18/23 Range/Units 12:00 Total Bilirubin 0.3 (0.2-1.0) mg/dl Direct Bilirubin 0.0 (0-0.2) mg/dl AST 15 (13-39) U/L ALT 9 (7-52) U/L Alkaline Phosphatase 86 (34-104) U/L Albumin 3.8 (3.4-5.0) gm/dl Urine 07/18/23 Range/Units 11:55 Urine Color Yellow Urine Appearance Cloudy A (Clear) Urine pH 5.0 (4.5-7.5) Ur Specific [place] 1.014 (1.000-1.030) Urine Protein 2+ H (Negative) Urine Glucose (UA) Negative (Negative) Diagnostic Findings Chest X-Ray 07/18/23 11:34 SINGLE VIEW CHEST CLINICAL HISTORY: Sepsis FINDINGS: An AP, portable, upright chest radiograph is compared to study dated 03/12/2023. The heart is enlarged. The pulmonary vasculature is noncongested. Emphysema and chronic interstitial thickening is similar to previous. Postsurgical change and volume loss is noted in the right lung. Airspace consolidation is seen at the right lung base. Left lung appears clear. No large pleural effusion pneumothorax is identified. The skeletal structures are osteopenic. The bony thorax is grossly intact. 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 IMPRESSION: 1. Cardiomegaly and emphysema without radiographic evidence of congestive failure. 2. There is airspace consolidation at the right lung base. Correlate clinically for symptoms of pneumonia/aspiration pneumonitis. Radiographic follow-up to resolution is recommended. ACT 112: Negative or not required by law. Electronically signed by: Horacio Motta M.D. 07/18/2023 12:[address] 07/18/23 13:[address] DOSE: HISTORY: Altered mental status. TECHNIQUE: Multiaxial CT images of the head were performed without the use of intravenous contrast. Automated exposure control was utilized for this study. A dose lowering technique was utilized adhering to the principles of ALARA. Comparison: Head CT 10/01/2022. Findings: The paranasal sinuses and mastoid air cells are clear. The calvarium and skull base are intact. There is no mass, hematoma, midline shift, acute infarct. White matter hypodensity is nonspecific but suggestive of microvascular ischemic change. The ventricles and sulci demonstrate mild age-related involutional changes. Impression: No significant change compared to the prior study. No acute intracranial abnormality. ACT 112: Negative or not required by law. Electronically signed by: Randy Waldron M.D. 07/18/2023 1:34 PM Abdomen/Pelvis CT 07/18/23 13:[address] WITHOUT CONTRAST CT DOSE: 2651.17 mGy.cm HISTORY: Acutely altered mental status with generalized abdominal pain ams TECHNIQUE: Multiaxial CT images of the abdomen and pelvis were performed without contrast. A dose lowering technique was utilized adhering to the principles of ALARA. COMPARISON STUDY: Chest CT of same day, CT abdomen and pelvis 09/28/2022, 04/01/2022. FINDINGS: Mild cardiomegaly. Small right and trace left pleural effusions. Right basilar predominant mucus plugging with patchy right greater than left bibasilar mixed groundglass and consolidative opacities. There is a 2 cm nodular focus of consolidation within the basal left lower lobe on image 50. Mild intralobular septal thickening. No free air. Unremarkable unenhanced spleen, and right adrenal gland. Nodular left adrenal gland thickening suggestive of hyperplasia. There is cholelithiasis with possible subcentimeter gallbladder polyp. Mild dilation of the common bile duct, 11 mm. This is unchanged. No choledocholithiasis identified. There is atrophy of the pancreatic body and tail with subcentimeter pancreatic body calcifications measuring up to proximally 4 mm on image 99 series 9. There is upstream pancreatic ductal dilation within the area of atrophy. Unremarkable liver. There is bilateral perinephric stranding. There are a few nonobstructing calculi of the right kidney measuring up to 4 mm. Bilateral renal cysts. Mild urothelial thickening of the right renal collecting system and renal pelvis. Decompressed urinary bladder with Kebede catheter in place. Hysterectomy. Air within the urinary bladder lumen. Atherosclerosis of the aorta and branch vessels. 1.5 x 1.0 cm left iliac chain lymph node on image 179 is unchanged. Mild nonspecific distal esophageal wall thickening. No bowel obstruction. Rectal wall thickening with partial distention. Colonic diverticulosis. Sigmoid colon wall thickening with partial distention. No CT evidence of acute appendicitis. No acute fracture. Chronic fracture deformity of the right proximal femur. Left femoral/hip ORIF hardware. IMPRESSION: 1. Trace left and small right pleural effusions with right greater than left bibasilar opacities. Please refer to the chest CT same day for additional discussion. 2. Atrophy of the pancreatic tail is again noted with associated ductal dilation. The 4.5 cm cystic pancreatic mass described on the 04/01/2022 study is no longer present and may have been excised. 3. Urothelial thickening of the right renal collecting system and ureter. Correlate with urinalysis to exclude infection. 4. Nonobstructing right nephrolithiasis. 5. Chronic right femoral neck fracture deformity. 6. Cholelithiasis. 7. Additional findings as above. ACT 112: Negative or not required by law. The above report was generated using voice recognition software. It may contain grammatical, syntax or spelling errors. Electronically signed by: Mani Ramos M.D. 07/18/2023 1:[address] 07/18/23 13:09 CT SCAN OF THE CHEST WITHOUT IV CONTRAST CLINICAL HISTORY: Dyspnea on exertion. COMPARISON STUDY: Chest CT dated 01/21/2022. Chest x-ray dated 07/18/2003. TECHNIQUE: CT scan of the thorax was performed from the thoracic inlet to the upper abdomen. Images are reviewed in the axial, sagittal, and coronal planes. IV contrast was not administered for this examination as per the referring clinician. A dose lowering technique was utilized adhering to the principles of ALARA. FINDINGS: Thyroid: Imaged portions of the thyroid gland are normal in size and attenuation. Thoracic aorta: There is atherosclerotic calcification of the thoracic aorta, which is normal in caliber and demonstrates standard 3-vessel arch anatomy. Heart: The heart is mildly enlarged and without pericardial effusion. There are coronary artery calcifications. Lungs and pleural spaces: Emphysematous change is observed. There is multifocal patchy airspace consolidation seen throughout both lungs, greatest the right lung base. A small right pleural effusion is observed. Trace pleural fluid seen on the left. The trachea and central airways appear clear. Mediastinum: Mildly enlarged mesorectal lymph nodes measure up to 11 mm in short axis. Sandy: Not well assessed without IV contrast. Axillae: There is no axillary lymphadenopathy. Upper abdomen: Partially visualized upper abdominal viscera is within normal limits. Skeletal structures: The skeletal structures are osteopenic. No lytic or blastic bony lesions are seen. Degenerative change is seen in the thoracic spine. Advanced arthritic change is noted in the shoulders. IMPRESSION: 1. Cardiomegaly and emphysema. 2. Multifocal patchy airspace consolidation is typical for pneumonia. Clinical correlation will be required and radiographic follow-up to resolution is recommended. 3. Small right and trace left pleural effusions. 4. Mildly enlarged mediastinal lymph nodes are nonspecific and likely reactive. 5. Additional findings as above. ACT 112: Negative or not required by law. Electronically signed by: Horacio Motta M.D. 07/18/2023 1:54 PM Medications Administered Home Medications Medication Instructions Recorded Confirmed Last Taken albuterol sulfate 90 mcg/actuation 2 puff inhalation DIRECTED PRN 12/21/21 07/18/23 03/12/23 aerosol inhaler Shortness Of Breath alprazolam 0.5 mg tablet (Xanax) 0.25 - 0.5 mg PO BID Anxiety 12/21/21 07/18/23 03/11/23 loratadine 10 mg tablet (Claritin) 10 mg PO QAM 12/21/21 07/18/23 03/11/23 pantoprazole 40 mg tablet,delayed 40 mg PO DAILY 12/21/21 07/18/23 03/11/23 release (Protonix) aspirin 81 mg tablet,delayed 81 mg PO DAILY 04/01/22 07/18/23 03/11/23 release escitalopram oxalate 5 mg tablet 5 mg PO DAILY 06/01/22 07/18/23 03/11/23 ferrous sulfate 325 mg (65 mg 325 mg PO DAILY 06/01/22 07/18/23 03/11/23 iron) tablet oxycodone 5 mg tablet 5 mg PO TID PRN Pain (Scale Score 06/01/22 07/18/23 03/12/23 7-10) cholecalciferol (vitamin D3) 1,250 50,000 unit PO WE 09/28/22 07/18/23 03/11/23 mcg (50,000 unit) capsule fluticasone propionate 50 2 spray intranasal Q12 09/28/22 07/18/23 03/12/23 mcg/actuation nasal spray,suspension multivitamin 1 tab PO DAILY 09/28/22 07/18/23 03/11/23 ondansetron 4 mg disintegrating 8 mg translingual BID PRN Nausea 09/28/22 07/18/23 03/11/23 tablet umeclidinium 62.5 mcg-vilanterol 1 ea inhalation DAILY 09/28/22 07/18/23 03/11/23 25 mcg/actuation powdr for inhalation (Anoro Ellipta) diclofenac sodium 1 % topical gel 2 g EXT Q6H PRN back pain #100 10/03/22 07/18/23 03/11/23 (Voltaren Arthritis Pain) grams sennosides 8.6 mg-docusate sodium 1 tab PO QAM #30 tabs 10/03/22 07/18/23 03/11/23 50 mg tablet (Senokot-S) rosuvastatin 10 mg tablet 10 mg PO HS 03/12/23 07/18/23 03/11/23 clonidine HCl 0.2 mg tablet 0.1 mg PO BID 07/18/23 07/18/23 Unknown felodipine 10 mg tablet,extended 10 mg PO HS 07/18/23 07/18/23 Unknown release 24 hr furosemide 20 mg tablet 20 mg PO Q2D 07/18/23 07/18/23 Unknown hydralazine 100 mg tablet 100 mg PO BID 07/18/23 07/18/23 Unknown tamsulosin 0.4 mg capsule 0.4 mg PO QAM 07/18/23 07/18/23 Unknown Active Medications Generic Name Dose Route Start Last Admin Trade Name Freq PRN Reason Stop Dose Admin Ceftriaxone Sodium 2,000 mg in 50 mls @ 100 mls/hr 07/18/23 13:00 07/18/23 13:58 Rocephin IV 07/20/23 12:59 Infused Q24H SABAS Infusion (5) Pneumonia Laterality: right Lung location: unspecified part of lung Pneumonia type: due to unspecified organism Qualified Code(s): J18.9 - Pneumonia, unspecified organism (6) Respiratory failure Chronicity: acute Respiratory failure complication: hypoxia Qualified Code(s): J96.01 - Acute respiratory failure with hypoxia
[2023-07-18] MEDS: LABETALOL HCL IV 5 MG/ML 20ML IV STA (14:56)
[2023-07-18] MEDS: cloNIDine HCL 0.1 MG TAB PO ONE (14:58)
[2023-07-18] MEDS: hydrALAZINE HCL 20 MG/ML VIAL IV ONE (14:58)
[2023-07-18 15:44] LABS: Adenovirus PCR Not Detected (NotDetected); Bordetella parapertussis PCR Not Detected (NotDetected); Bordetella pertussis PCR Not Detected (NotDetected); Chlamydia pneumoniae PCR Not Detected (NotDetected); Coronavirus 229E PCR Not Detected (NotDetected); Coronavirus CoV-2 (COVID19)PCR Not Detected (NotDetected); Coronavirus HKU1 PCR Not Detected (NotDetected); Coronavirus NL63 PCR Not Detected (NotDetected); Coronavirus OC43PCR Not Detected (NotDetected); Human Metapneumovirus PCR Not Detected (NotDetected); Influenza A PCR Not Detected (NotDetected); Influenza B PCR Not Detected (NotDetected); Mycoplasma pneumoniae PCR Not Detected (NotDetected); Parainfluenza Virus 1 PCR Not Detected (NotDetected); Parainfluenza Virus 2 PCR Not Detected (NotDetected); Parainfluenza Virus 3 PCR Not Detected (NotDetected); Parainfluenza Virus 4 PCR Not Detected (NotDetected); Respiratory Syncytial VirusPCR Not Detected (NotDetected); Rhinovirus/Enterovirus PCR Not Detected (NotDetected)
--- NOTE | 2023-07-18 16:13 | Electrocardiogram Report ---
Test Reason : Blood Pressure : / mmHG Vent. Rate : 069 BPM Atrial Rate : 069 BPM P-R Int : 180 ms QRS Dur : 090 ms QT Int : 418 ms P-R-T Axes : 040 045 083 degrees QTc Int : 447 ms Sinus rhythm with Premature supraventricular complexes Nonspecific ST and T wave abnormality Abnormal ECG When compared with ECG of 12-MAR-2023 10:44, Premature supraventricular complexes are now Present Confirmed by Fish Avelar ([id number]) on 07/18/2023 4:13:06 PM Referred By: Confirmed By:Fish Avelar
[2023-07-18] MEDS ORDERED: ACETAMINOPHEN 325 MG TAB PO PRN (17:50)
[2023-07-18] MEDS ORDERED: ONDANSETRON 8MG OD TAB PO PRN (17:50)
[2023-07-18] MEDS ORDERED: ONDANSETRON INJ 2 MG/ML 2 ML VIAL IV PRN (17:50)
[2023-07-18] MEDS ORDERED: ALBUTEROL HFA 8 GM INHALER INH PRN (17:50)
[2023-07-18] MEDS: ASPIRIN 81 MG ECTAB PO SCH (19:26)
[2023-07-18] MEDS: ESCITALOPRAM OXALATE 10 MG TAB PO SCH (19:27)
[2023-07-18] MEDS: PANTOprazole 40 MG TAB PO SCH (19:27)
[2023-07-18] MEDS: LORATADINE 10 MG TAB PO SCH (19:27)
[2023-07-18] MEDS: UMECLIDINIUM/VILANTEROL 62.5/25MCG 7 PUFFS/INHALER INH SCH (19:35)
[2023-07-18] MEDS: DOXYCYCLINE HYCLATE 100 MG in DEXTROSE 5% MINI-B 100 ML IV SCH (19:36)
[2023-07-18] MEDS: FUROSEMIDE INJ 20 MG/2 ML VIAL IV ONE (19:36)
[2023-07-18] MEDS: ALPRAZolam 0.5 MG TABLET PO SCH (21:28)
[2023-07-18] MEDS: oxyCODONE HCL IR 5 MG TAB (IMMEDIATE RELEASE) PO PRN (21:28)
[2023-07-18] MEDS: FLUTICASONE PROPIONATE NA SPR 16 GM BTL NAE SCH (21:29)
[2023-07-18] MEDS: guaiFENesin 600 MG TABCR PO SCH (21:31)
[2023-07-18] MEDS: HEPARIN SOD 5,000 UNIT/0.5 ML VIAL SQ SCH (21:32)
[2023-07-18] MEDS: ROSUVASTATIN CALCIUM 10 MG TAB PO SCH (21:35)
[2023-07-18] MEDS: FUROSEMIDE INJ 20 MG/2 ML VIAL IV SCH (22:18)
[2023-07-19 02:41] LABS: Hematocrit (blood only) 24.9 % (37.0-47.0); Hemoglobin 7.9 g/dl (12.0-16.0); Mean Corpuscular Hemoglobin 27.7 pg (25.0-34.0); Mean Corpuscular Hgb Conc 31.7 g/dL (32.0-36.0); Mean Corpuscular Volume 87.4 fL (80.0-100.0); Mean Platelet Volume 10.2 fL (9.4-12.4); Platelet Count 215 K/uL (130-400); RDW Coefficient of Variation 13.4 % (11.5-14.5); Red Blood Count 2.85 M/uL (4.20-5.40); White Blood Count 7.47 K/ul (4.8-10.8)
[2023-07-19 03:09] LABS: BUN Creatinine Ratio 21.6 (10-20); Calcium 8.5 mg/dl (8.6-10.3); Creatinine Clr Calc Pharmacy 21.6 ml/min; Est GFR (African American) 27.8 ml/min; Magnesium 1.6 mg/dl (1.7-2.4); Phosphorus 3.3 mg/dl (2.5-4.9); Potassium 4.2 mmol/L (3.5-5.1)
[2023-07-19] MEDS: DOCUSATE SODIUM/SENNA 50/8.6MG TAB PO SCH (08:40)
[2023-07-19] MEDS: TAMSULOSIN HCL 0.4 MG CAP PO SCH (08:40)
[2023-07-19] MEDS: cloNIDine HCL 0.1 MG TAB PO SCH (08:41)
[2023-07-19] MEDS: FERROUS SULFATE 325 MG TAB PO SCH (08:42)
[2023-07-19] MEDS: MULTIVITAMIN TAB PO SCH (08:42)
[2023-07-19] MEDS: hydrALAZINE TAB 50 MG TAB PO SCH (08:42)
[2023-07-19] MEDS: ERGOCALCIFEROL 1250 MCG (50,000 UNITS) CAP PO SCH (08:42)
--- NOTE | 2023-07-19 08:56 | Cardiology Consultation ---
Date of Consultation July 19, 2023 Assessment & Plan (1) Acute alteration in mental status: (2) Pneumonia: (3) Acute UTI: (4) Acute on chronic respiratory failure with hypoxia and hypercapnia: (5) Hypertensive heart disease with chronic diastolic congestive heart failure: Plan Patient admitted after being found confused at home by daughter and hypoxic. Head CT was unremarkable. Diagnosed with pneumonia and UTI. Started on antibiotic therapy per hospitalist. Mild small right pleural effusion on chest CT. Treated with one dose IV lasix in the ER. Clinically she appears euvolemic, if not hypovolemic. Will hold further diuretics at this time. Elevated creatinine on admission at 2.3, improving to 1.9 this morning. Elevated troponin secondary to demand ischemia in setting of acute respiratory failure with hypoxia, hypertension, and elevated creatinine on admission. She denies CP or symptoms to suggest ACS. No acute ischemic EKG changes. Echocardiogram was ordered and results pending. Continue ASA, statin. BP trending down since admission - Continue clonidine, felodipine, hydralazine. Avoid beta blockers given bradycardia. She was previously on higher dose clonidine during admission for hypertensive urgency in February. Consider also consider adding nitrates if needed. Case discussed with Dr. Delgadillo I spent a total of 60 minutes on the date of service in preparation, delivery, and documentation of the care provided to this patient, excluding any time spent in the performance of separately billed services. Myriam Gomez PA-C Department of Cardiology, [facility] This chart was completed in part utilizing Speech Voice Recognition Software. Grammatical errors, random word insertions, pronoun errors, and incomplete sentences are an occasional consequence of this system due to software limitations, ambient noise, and hardware issues. Any formal questions or concerns about the content, text, or information contained within the body of this dictation should be directly addressed to the provider for clarification. Supervising Physician Co-Signing Physician Notes I have reviewed the advance practitioner's documentation, and I agree with, and take responsibility for the plan of care. I have personally performed a history and physical examination on the patient. 78-year-old female admitted with confusion and hypoxia. She does not recall events leading up to admission. Diagnosed with multifocal pneumonia and urinary tract infection. Initially treated with IV diuretics due to concerns regarding decompensated heart failure. Patient appears dry on physical exam. Would avoid additional IV diuresis at this time. Continue other cardiovascular medications: Aspirin, statin, clonidine, felodipine, and hydralazine. Review echo when available. I spent a total of 30 minutes on the date of service in preparation, delivery, and documentation of the care provided to this patient, excluding any time spent in the performance of separately billed services. History of Present Illness Reason for Consultation: CHF; HTN; Elevated troponin Requesting Physician: Dr. Hernandez Attending Physician: Dr. Delgadillo History of Present Illness Patient is a 78-year-old female admitted to [facility] with altered mental status noted at home by family. history includes: 1. Chronic respiratory failure/COPD, O2 dependent 2. CKD 3. HTN 4. Sinus bradycardia 5. wheelchair bound due to chronic congenital hip dysplasia 6. chronic opioid use Patient found to be more confused at home. Brought to ER. Upon arrival, diagnosed with acute on chronic respiratory failure with pneumonia. Also diagnosed with UTI. Blood cultures pending. Started on antibiotics. Head CT was negative. Cardiology consulted due to possible underlying CHF exacerbation. She was treated with one dose IV Lasix in the ER. Troponin also elevated ranging 675 to peak at 926. EKG reviewed demonstrating NSR with sinus arrhythmia and non specific ST wave abnormality. No acute ischemic changes. At time of consult, Allergies Allergy/AdvReac Type Severity Reaction Status Date / Time metronidazole [From Flagyl] Allergy Severe SHORTNESS Verified 03/12/23 08:36 OF BREATH amlodipine AdvReac Intermediate left leg Verified 03/12/23 08:36 numbness cefuroxime AdvReac Intermediate Gastrointestinal Verified 03/12/23 08:36 Upset Cephalosporins AdvReac Intermediate Gastrointestinal Verified 03/12/23 08:36 Upset ciprofloxacin AdvReac Intermediate Gastrointestinal Verified 03/12/23 08:36 Upset erythromycin base AdvReac Intermediate Gastrointestinal Verified 03/12/23 08:36 Upset sulfamethoxazole AdvReac Intermediate hyperkalemi Verified 03/12/23 08:36 [From Bactrim] a trimethoprim [From Bactrim] AdvReac Intermediate hyperkalemi Verified 03/12/23 08:36 a Home Medications Medication Instructions Recorded Confirmed Type albuterol sulfate 90 mcg/actuation 2 puff inhalation DIRECTED PRN 12/21/21 07/18/23 History aerosol inhaler Shortness Of Breath alprazolam 0.5 mg tablet (Xanax) 0.25 - 0.5 mg PO BID Anxiety 12/21/21 07/18/23 History loratadine 10 mg tablet (Claritin) 10 mg PO QAM 12/21/21 07/18/23 History pantoprazole 40 mg tablet,delayed 40 mg PO DAILY 12/21/21 07/18/23 History release (Protonix) aspirin 81 mg tablet,delayed 81 mg PO DAILY 04/01/22 07/18/23 History release escitalopram oxalate 5 mg tablet 5 mg PO DAILY 06/01/22 07/18/23 History ferrous sulfate 325 mg (65 mg 325 mg PO DAILY 06/01/22 07/18/23 History iron) tablet oxycodone 5 mg tablet 5 mg PO TID PRN Pain (Scale Score 06/01/22 07/18/23 History 7-10) cholecalciferol (vitamin D3) 1,250 50,000 unit PO WE 09/28/22 07/18/23 History mcg (50,000 unit) capsule fluticasone propionate 50 2 spray intranasal Q12 09/28/22 07/18/23 History mcg/actuation nasal spray,suspension multivitamin 1 tab PO DAILY 09/28/22 07/18/23 History ondansetron 4 mg disintegrating 8 mg translingual BID PRN Nausea 09/28/22 07/18/23 History tablet umeclidinium 62.5 mcg-vilanterol 1 ea inhalation DAILY 09/28/22 07/18/23 History 25 mcg/actuation powdr for inhalation (Anoro Ellipta) diclofenac sodium 1 % topical gel 2 g EXT Q6H PRN back pain #100 10/03/22 07/18/23 Rx (Voltaren Arthritis Pain) grams sennosides 8.6 mg-docusate sodium 1 tab PO QAM #30 tabs 10/03/22 07/18/23 Rx 50 mg tablet (Senokot-S) rosuvastatin 10 mg tablet 10 mg PO HS 03/12/23 07/18/23 History clonidine HCl 0.2 mg tablet 0.1 mg PO BID 07/18/23 07/18/23 History felodipine 10 mg tablet,extended 10 mg PO HS 07/18/23 07/18/23 History release 24 hr furosemide 20 mg tablet 20 mg PO Q2D 07/18/23 07/18/23 History hydralazine 100 mg tablet 100 mg PO BID 07/18/23 07/18/23 History tamsulosin 0.4 mg capsule 0.4 mg PO QAM 07/18/23 07/18/23 History Patient History Medical History CKD (chronic kidney disease) stage 3, GFR 30-59 ml/min History of blood transfusion 01/08 GERD (gastroesophageal reflux disease) On home oxygen therapy 2lpm via n/c PRN Kidney stones Pancreatic cyst monitoring Congenital hip deformity bilateral Chronic pain Chronic headaches Migraine 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 Hx of hernia repair History of removal of ovarian cyst Hx of hysterectomy Hx of appendectomy Family History Mother Coronary heart disease Father Coronary heart disease Brother Diabetes Brother Coronary heart disease Other Heart disease Hypertension No family history of adverse response to anesthesia Social History Smoking Status: Former smoker Tobacco Type: Cigarettes Cigarettes Per Day: quit 3 years ago; Second Hand Exposure: No; Do You Dip or Chew Tobacco: No; Hx Alcohol Use: No Hx Substance Use: No Preferred Language: Chinese Communication Ability: Effective Visual Impairment: No Limitations [employer] Operator Required: No Beliefs That Will Affect Care: None marital status: / Current Living Situation: Other Current Living Situation Comment: daughter How many Children do You have: 2 Other Information That Helps Us Care for You: No Feels Safe at Home: Yes Safety Concerns: Feels Safe At This Time Assistive Devices: Hospital Bed, Oxygen - Continuous, Stair Lift and Wheelchair Review of Systems Review of Systems: All systems reviewed & are unremarkable except as noted in HPI & below Physical Exam Constitutional: WD/WN, vitals as above average body habitus; no acute distress Neck: trachea midline, no thyromegaly Respiratory: no labored breathing Auscultation: + diminished lung sounds, + rhonchi and + wheezes Gastrointestinal (Abdomen): normal bowel sounds, soft, nontender, no he patosplenomegaly Neurologic: PERRL, EOMI, accommodation nl, no face palsy, no dysarthria Psychiatric: A+Ox3, euthymic affect Results & Data Vital Signs (Past 12 Hours) Vital Signs Temp Pulse Pulse Resp BP Pulse Ox O2 Del Method 07/19/23 07:48 36.6 C 63 18 167/72 H 97 Nasal Cannula 07/19/23 03:09 36.3 C L 57 L 16 136/67 96 Nasal Cannula 07/18/23 22:40 36.6 C 58 L 20 129/59 L 96 Nasal Cannula O2 Flow Rate 07/19/23 07:48 07/19/23 03:09 1 07/18/23 22:40 1 Laboratory Results Cardiac Enzymes 07/18/23 07/18/23 07/18/23 Range/Units 12:00 14:21 17:49 AST 15 (13-39) U/L Troponin I High Sens 675.0 H* 833.2 H* D 926.0 H* (0-14) pg/ml B-Natriuretic Peptide 564 H (0-100) pg/ml 07/18/23 07/19/23 07/19/23 Range/Units 21:18 01:59 08:11 AST (13-39) U/L Troponin I High Sens 856.8 H* 725.7 H* 633.5 H* (0-14) pg/ml B-Natriuretic Peptide (0-100) pg/ml Coagulation 07/18/23 Range/Units 12:00 PT 10.6 (9.0-12.0) Seconds APTT 23 (21-31) Seconds B-Natriuretic Peptide 564 H (0-100) pg/ml CBC 07/18/23 07/19/23 Range/Units 12:00 01:59 WBC 11.14 H 7.47 (4.8-10.8) K/ul RBC 3.34 L 2.85 L (4.20-5.40) M/uL Hgb 9.2 L 7.9 L (12.0-16.0) g/dl Hct 29.6 L 24.9 L (37.0-47.0) % Plt Count 257 215 (130-400) K/uL Neut # (Auto) 8.87 H (1.40-6.50) K/uL Lymph # (Auto) 1.23 (1.20-3.40) K/uL Grundy # (Auto) 0.73 H (0.11-0.59) K/uL Eos # (Auto) 0.19 (0.00-0.50) K/uL Baso # (Auto) 0.03 (0.00-0.20) K/uL Comprehensive Metabolic Panel 07/18/23 07/19/23 Range/Units 12:00 01:59 Sodium 140 139 (136-145) mmol/L Potassium 4.4 4.2 (3.5-5.1) mmol/L Chloride 100 104 (98-107) mmol/L Carbon Dioxide 32 28 (21-32) mmol/L BUN 45 H 42 H (6-23) mg/dl Creatinine 2.29 H 1.94 H D (0.6-1.2) mg/dl Glucose 135 H 220 H (70-99(Fasting)) mg/dl Calcium 9.6 8.5 L (8.6-10.3) mg/dl Direct Bilirubin 0.0 (0-0.2) mg/dl AST 15 (13-39) U/L ALT 9 (7-52) U/L Alkaline Phosphatase 86 (34-104) U/L Total Protein 7.7 (6.0-8.3) gm/dl Albumin 3.8 (3.4-5.0) gm/dl Intake and Output 07/18/23 07/19/23 07/19/23 22:59 06:59 14:59 Intake Total 1250 / 2675 375 / 2675 100 / 100 Output Total 500 / 1050 350 / 1050 Balance 750 / 1625 25 / 1625 100 / 100 Intake: IV 1100 / 2150 100 / 100 Doxycycline Hyclate 100 mg In 100 / 100 100 / 100 Dextrose 5% Mini-B 100 ml @ 50 mls/hr IV Q12H [facility] Rx#:[id number] Sodium Chloride 0.9% 1,000 ml @ 1000 / 1000 999 mls/hr IV .Q1H1M [facility] Rx#: [id number] Oral 150 / 525 375 / 525 Output: Urine Amount (Catheter) 500 / 850 350 / 850 [place]eb[place]/Indwelling 500 / 850 350 / 850 Other: Weight 66.7 kg 67.3 kg Weight Measurement Method [facility] Built in [facility] Diagnostic Findings Telemetry reviewed: Sinus bradycardia in the 50-60's. EKG reviewed from admission 07/18/23: NSR with PACs non specific ST/T wave abnormality No acute changes from previous Repeat EKG reviewed from last night 07/18/23: NSR, non specific T wave abnormality no significant changes Chest X-Ray 07/18/23 11:34 IMPRESSION: 1. Cardiomegaly and emphysema without radiographic evidence of congestive failure. 2. There is airspace consolidation at the right lung base. Correlate clinically for symptoms of pneumonia/aspiration pneumonitis. Radiographic follow-up to resolution is recommended. Head CT 07/18/23 13:02 Impression: No significant change compared to the prior study. No acute intracranial abnormality. Abdomen/Pelvis CT 07/18/23 13:09 IMPRESSION: 1. Trace left and small right pleural effusions with right greater than left bibasilar opacities. Please refer to the chest CT same day for additional discussion. 2. Atrophy of the pancreatic tail is again noted with associated ductal dilation. The 4.5 cm cystic pancreatic mass described on the 04/01/2022 study is no longer present and may have been excised. 3. Urothelial thickening of the right renal collecting system and ureter. Correlate with urinalysis to exclude infection. 4. Nonobstructing right nephrolithiasis. 5. Chronic right femoral neck fracture deformity. 6. Cholelithiasis. 7. Additional findings as above. Chest CT 07/18/23 13:09 IMPRESSION: 1. Cardiomegaly and emphysema. 2. Multifocal patchy airspace consolidation is typical for pneumonia. Clinical correlation will be required and radiographic follow-up to resolution is recommended. 3. Small right and trace left pleural effusions. 4. Mildly enlarged mediastinal lymph nodes are nonspecific and likely reactive. 5. Additional findings as above. Medications Administered Current Inpatient Medications Acetaminophen (Acetaminophen 325 Mg Tab) 650 mg PO Q4H PRN PRN Reason: Pain or Fever Stop: 08/17/23 17:49 Albuterol (Albuterol Hfa 8 Gm Inhaler) 2 puffs INH Q6 PRN PRN Reason: Shortness Of Breath Stop: 08/17/23 17:49 Albuterol (Albut/Ipratrop 3mg/0.5mg Neb 3 Ml Vial) 3 ml NEB Q6R PRN; Protocol PRN Reason: Wheezing Stop: 08/17/23 17:49 Alprazolam (Alprazolam 0.5 Mg Tablet) 0.5 mg PO BID [facility] Stop: 08/17/23 20:59 Last Admin: 07/19/23 08:44 Dose: 0.5 mg Aspirin (Aspirin 81 Mg Ectab) 81 mg PO DAILY [facility] Stop: 08/17/23 17:49 Last Admin: 07/19/23 08:40 Dose: 81 mg Clonidine HCl (Clonidine Hcl 0.1 Mg Tab) 0.1 mg PO BID [facility] Stop: 08/18/23 08:59 Last Admin: 07/19/23 08:41 Dose: 0.1 mg Ergocalciferol (Ergocalciferol 1250 Mcg (50,000 Units) Cap) 1,250 mcg PO We@0900 [facility] Stop: 08/18/23 08:59 Last Admin: 07/19/23 08:42 Dose: 1,250 mcg Escitalopram Oxalate (Escitalopram Oxalate 10 Mg Tab) 5 mg PO DAILY [facility] Stop: 08/17/23 17:49 Last Admin: 07/19/23 08:41 Dose: 5 mg Felodipine (Felodipine 5 Mg Tabcr) 10 mg PO HS [facility] Stop: 08/18/23 20:59 Ferrous Sulfate (Ferrous Sulfate 325 Mg Tab) 325 mg PO DAILY [facility] Stop: 08/18/23 08:59 Last Admin: 07/19/23 08:42 Dose: 325 mg Fluticasone Propionate (Fluticasone Propionate Na Spr 16 Gm Btl) 2 sprays HUMZA Q12 [facility] Stop: 08/17/23 20:59 Last Admin: 07/19/23 08:43 Dose: 2 sprays Guaifenesin (Guaifenesin 600 Mg Tabcr) 600 mg PO Q12 [facility] Stop: 08/17/23 20:59 Last Admin: 07/19/23 08:43 Dose: 600 mg Heparin Sodium (Porcine) (Heparin Sod 5,000 Unit/0.5 Ml Vial) 5,000 units SQ Q8 [facility] Stop: 08/17/23 21:59 Last Admin: 07/19/23 05:27 Dose: 5,000 units Hydralazine HCl (Hydralazine Tab 50 Mg Tab) 100 mg PO BID [facility] Stop: 08/18/23 08:59 Last Admin: 07/19/23 08:42 Dose: 100 mg Ceftriaxone Sodium (Rocephin) 2,000 mg in 50 mls @ 100 mls/hr IV Q24H [facility] Stop: 07/20/23 12:59 Last Infusion: 07/18/23 13:58 Dose: Infused Doxycycline Hyclate 100 mg/ (Dextrose) 100 mls @ 50 mls/hr IV Q12H [facility] Stop: 07/25/23 18:59 Last Infusion: 07/19/23 07:49 Dose: Infused Loratadine (Loratadine 10 Mg Tab) 10 mg PO QAM [facility] Stop: 08/17/23 17:49 Last Admin: 07/19/23 08:41 Dose: 10 mg Magnesium Hydroxide (Magnesium Hydroxide Susp 30 Ml Udc) 30 ml PO Q12H PRN PRN Reason: Constipation Stop: 08/17/23 17:49 Multivitamins (Multivitamin Tab) 1 tab PO DAILY [facility] Stop: 08/18/23 08:59 Last Admin: 07/19/23 08:42 Dose: 1 tab Ondansetron HCl (Ondansetron 8mg Od Tab) 8 mg PO BID PRN PRN Reason: Nausea Stop: 08/17/23 17:49 Ondansetron HCl (Ondansetron Inj 2 Mg/Ml 2 Ml Vial) 4 mg IV Q6H PRN PRN Reason: Nausea Stop: 08/17/23 17:49 Oxycodone HCl (Oxycodone Hcl Ir 5 Mg Tab (Immediate Release)) 5 mg PO TID PRN PRN Reason: Pain (Scale Score 7-10) Stop: 08/01/23 17:49 Last Admin: 07/18/23 21:28 Dose: 5 mg Pantoprazole Sodium (Pantoprazole 40 Mg Tab) 40 mg PO DAILY [facility] Stop: 08/17/23 17:49 Last Admin: 07/19/23 08:40 Dose: 40 mg Rosuvastatin Calcium (Rosuvastatin Calcium 10 Mg Tab) 10 mg PO HS [facility] Stop: 08/17/23 20:59 Last Admin: 07/18/23 21:35 Dose: 10 mg Senna/Docusate Sodium (Docusate Sodium/Senna 50/8.6mg Tab) 1 tab PO QAM [facility] Stop: 08/18/23 08:59 Last Admin: 07/19/23 08:40 Dose: 1 tab Tamsulosin HCl (Tamsulosin Hcl 0.4 Mg Cap) 0.4 mg PO QAM [facility] Stop: 08/18/23 08:59 Last Admin: 07/19/23 08:40 Dose: 0.4 mg Umeclidinium/Vilanterol (Umeclidinium/Vilanterol 62.5/25mcg 7 Puffs/Inhaler) 1 puffs INH DAILY [facility] Stop: 08/17/23 17:49 Last Admin: 07/19/23 08:43 Dose: 1 puffs (2) Pneumonia Laterality: right Lung location: unspecified part of lung Pneumonia type: due to unspecified organism Qualified Code(s): J18.9 - Pneumonia, unspecified organism
[2023-07-19] MEDS: MAGNESIUM SULFATE / D5W 1 GM/100 ML BAG IV SCH (15:07)
--- NOTE | 2023-07-19 15:23 | Hospitalist Progress Note ---
Date of Service July 19, 2023 Assessment & Plan (1) Hypertensive heart disease with chronic diastolic congestive heart failure: (2) NANCY (acute kidney injury): (3) Elevated troponin I level: (4) Acute alteration in mental status: (5) Pneumonia: (6) Respiratory failure: Plan Ms. Dewey is a 78-year-old woman who has significant past medical history of chronic hypoxic respiratory failure on 2-3 L of oxygen, COPD, HTN, HLD, CKD-3b, gastritis, GERD, IBS, depression with anxiety, history of tobacco abuse and wheelchair-bound status 2/2 congenital hip dysplasia s/p multiple surgeries, as well as chronic opioid use who presents to [facility] due to altered mental status. Patient with decline over last week per daughter. Imaging concerning for pneumonia and volume overload. BNP elevated. Troponin like elevated from demand 2/2 infection/htn urgency/hfpef Acute hypoxic respiratory failure Bilateral pneumonia Patient presented to the hospital with concern of altered mental status and hypoxia. CT chest on admission shows cardiomegaly with emphysema. Multifocal patchy consolidation typical of pneumonia. Pro-Rajiv elevated BioFire negative Continue on ceftriaxone and doxycycline. Plan to treat for 7 days -Continue home inhalers -Duonebs prn -Schedule mucinex BID, flutter valve -Assess response to IV lasix Wean o2 prn Acute on chronic HFpEF Hypertensive Urgency Demand ischemia -ECHO from February 2023 with EF 65%, but new pulm htn, mitral/tricupsid regurg, no documented right heart strain, no wall motion abnormalities -High sensitive troponin of 675 on admission; up trended to 900 and down trended. -Home regimen: hydralazine 100mg BID, clonidine 0.1 BID, felodipine 10mg qhs Diuresed with IV Lasix. Strict DANII's Will likely benefit from Lasix daily at discharge. Currently she is on 20 mg every 2 days. Cardiology on board; no further cardiac workup at this time. #Acute metabolic encephalopathy likely secondary to underlying pneumonia and exacerbation of HF Delirium precautions Patient appears to be at baseline mentation. #NANCY on CKD IIIb Likely multifactorial-stable cardiorenal syndrome, secondary to hypoxia Creatinine down trended to 1.94 Monitor strict input and output #HLD Continue home ASA and rosuvastatin #Allergic rhinitis -Continue home flonase and loratadine #Depression #Anxiety -Continue home lexapro -Continue home xanax bid (also for burning mouth syndrome) #Chronic iron deficiency anemia -stable hgb -Continue home iron supplementation #GERD -Continue protonix daily #Nephrolithiasis c/b hydronephrosis s/p stenting 2021 -continue home tamsulosin 0.4 mg qam #Chronic pain on chronic opioids #Congenital Hip dysplasia s/p multiple surgeries #Burning mouth syndrome - Continue home Oxy 5 TID prn -Senakot scheduled DVT heparin sq Diet HH Admit PCU/tele Time spent evaluating patient, direct bedside care, chart review, placing orders, interpretation of diagnostic studies, discussion with consultants, patient, and family members, as well as other required patient management activities is 60 minutes Please note the above document was generated using voice recognition software. It may contain grammatical, syntax or spelling errors. Any formal questions or concerns about the content, text or information contained within the body of this dictation should be directly addressed to the provider for clarification Admission and Anticipated Discharge Date Admission Date: July 18, 2023 Subjective Patient seen and examined at bedside. She is sitting up on the bed eating her lunch. She is saturating well at 2 L of oxygen Review of Systems Review of Systems: All systems reviewed & are unremarkable except as noted in Subjective Physical Exam Physical Exam: Constitutional: WD/WN, vitals as above, NAD, sitting up in bed, pleasant, conversing easily Respiratory: Decreased breath sound at bases. Cardiovascular: RRR, no murmur, no edema Vessels: no JVD or carotid bruit Chest: normal inspection of chest Abdomen: normal bowel sounds, soft, nontender, no hepatosplenomegaly Musculoskeletal: no cyanosis or clubbing, extremities motor strength 5/5 Skin: no rashes, warm and dry normal turgor Neurologic: PERRL, EOMI, accommodation nl, no face palsy, no dysarthria CN's II- XI intact bilaterally and moves all extremities Psychiatric: A+Ox3, euthymic affect Results & Data Results & Data Vital Signs (Past 12 Hours) Vital Signs Temp Pulse Pulse Pulse Resp BP Pulse Ox 07/19/23 14:59 36.7 C 59 L 17 157/70 H 98 07/19/23 11:17 36.6 C 90 16 153/64 H 98 07/19/23 09:00 56 L 07/19/23 08:56 07/19/23 07:48 36.6 C 63 18 167/72 H 97 O2 Del Method O2 Flow Rate 07/19/23 14:59 Nasal Cannula 07/19/23 11:17 Nasal Cannula 2.0 07/19/23 09:00 07/19/23 08:56 Nasal Cannula 2 07/19/23 07:48 Nasal Cannula (5) Pneumonia Laterality: right Lung location: unspecified part of lung Pneumonia type: due to unspecified organism Qualified Code(s): J18.9 - Pneumonia, unspecified organism (6) Respiratory failure Chronicity: acute Respiratory failure complication: hypoxia Qualified Code(s): J96.01 - Acute respiratory failure with hypoxia
[2023-07-19] MEDS: FELODIPINE 5 MG TABCR PO SCH (19:57)
[2023-07-19] MEDS: ALBUT/IPRATROP 3MG/0.5MG NEB 3 ML VIAL NEB PRN (22:32)
[2023-07-20 06:50] LABS: Basophils # (auto) 0.02 K/uL (0.00-0.20); Basophils % (auto) 0.2 %; Eosinophils # (auto) 0.13 K/uL (0.00-0.50); Eosinophils % (auto) 1.4 %; Hematocrit (blood only) 26.4 % (37.0-47.0); Hemoglobin 8.2 g/dl (12.0-16.0); Immature Granulocytes # (auto) 0.31 K/uL (0.01-0.20); Immature Granulocytes % (auto) 3.2 %; Lymphocytes # (auto) 1.62 K/uL (1.20-3.40); Lymphocytes % (auto) 16.9 %; Mean Corpuscular Hemoglobin 27.1 pg (25.0-34.0); Mean Corpuscular Hgb Conc 31.1 g/dL (32.0-36.0); Mean Corpuscular Volume 87.1 fL (80.0-100.0); Mean Platelet Volume 10.3 fL (9.4-12.4); Monocytes % (auto) 7.3 %; Neutrophils # (auto) 6.79 K/uL (1.40-6.50); Platelet Count 257 K/uL (130-400); RDW Coefficient of Variation 13.3 % (11.5-14.5); Red Blood Count 3.03 M/uL (4.20-5.40); White Blood Count 9.57 K/ul (4.8-10.8)
[2023-07-20 07:13] LABS: BUN Creatinine Ratio 26.6 (10-20); Calcium 9.1 mg/dl (8.6-10.3); Creatinine Clr Calc Pharmacy 24.5 ml/min; Est GFR (Non-African American) 27.6 ml/min; Potassium 4.8 mmol/L (3.5-5.1)
[2023-07-20 09:01] LABS: Magnesium 2.2 mg/dl (1.7-2.4)
--- NOTE | 2023-07-20 11:47 | Cardiology Progress Note ---
Date of Service July 20, 2023 Assessment & Plan (1) Acute alteration in mental status: (2) Pneumonia: (3) Acute UTI: (4) Acute on chronic respiratory failure with hypoxia and hypercapnia: (5) Hypertensive heart disease with chronic diastolic congestive heart failure: Plan Patient admitted after being found confused at home by daughter and hypoxic. Head CT was unremarkable. Diagnosed with pneumonia and UTI. Started on antibiotic therapy per hospitalist. Mild small right pleural effusion on chest CT. Treated with one dose IV lasix in the ER. Clinically she appears euvolemic, if not hypovolemic. Will hold further diuretics at this time. Elevated creatinine on admission at 2.3, improving to 1.9 this morning. Elevated troponin secondary to demand ischemia in setting of acute respiratory failure with hypoxia, hypertension, and elevated creatinine on admission. She denies CP or symptoms to suggest ACS. No acute ischemic EKG changes. Echocardiogram was ordered and results pending. Continue ASA, statin. BP trending down since admission - Continue clonidine, felodipine, hydralazine. Avoid beta blockers given bradycardia. She was previously on higher dose clonidine during admission for hypertensive urgency in February. Consider also consider adding nitrates if needed. 07/20/23: Patient more awake/alert today. Reports SOB improved and back to baseline. Cough also improved. Continue antibiotic therapy for pneumonia and UTI per hospitalist. Resume oral diuretics today to maintain volume status. Prior home dose was furosemide 20 mg every 2 days. Will make it daily dosing. Echo yesterday with preserved EF, no wall motion abnormalities, elevated pulm pressures and grade II diastolic dysfunction. No change from prior echo. Elevated troponin was secondary to demand ischemia in setting of hypoxia, NANCY, infection. Could consider future outpatient ischemic work up BP trending down. Continue clonidine, felodipine, hydralazine, and diuretic therapy. Avoid beta blockers with bradycardia. Stable cardiac symptoms. Will sign off. Please contact personal lines sales rep cardiology provider with additional questions or concerns. Case discussed with Dr. Delgadillo I spent a total of 60 minutes on the date of service in preparation, delivery, and documentation of the care provided to this patient, excluding any time spent in the performance of separately billed services. Myriam Gomez PA-C Department of Cardiology, [facility] This chart was completed in part utilizing Speech Voice Recognition Software. Grammatical errors, random word insertions, pronoun errors, and incomplete sentences are an occasional consequence of this system due to software limitations, ambient noise, and hardware issues. Any formal questions or concerns about the content, text, or information contained within the body of this dictation should be directly addressed to the provider for clarification. Admission and Anticipated Discharge Date Admission Date: July 18, 2023 Supervising Physician Co-Signing Physician Notes I have reviewed the advance practitioner's documentation, and I agree with, and take responsibility for the plan of care. I have personally performed a history and physical examination on the patient. 78-year-old female admitted with confusion and hypoxia. Improving over the past 24 hours with conservative therapy. Currently does not appear to be overtly volume overloaded. Resume oral diuretic therapy today. Increase Lasix to 20 mg daily as noted above. Continue other cardiovascular medications including aspirin, statin, clonidine, felodipine, and hydralazine. Stable echo findings. No further inpatient cardiac testing or intervention recommended. Cardiology will sign off. Please call with additional concerns/questions. I spent a total of 30 minutes on the date of service in preparation, delivery, and documentation of the care provided to this patient, excluding any time spent in the performance of separately billed services. Subjective Patient resting in bed. reports feeling "tired and weak". Reports her SOB and cough has improved since yesterday. SOB at baseline. No chest pain. No edema. No fever or chills. Review of Systems Review of Systems: All systems reviewed & are unremarkable except as noted in HPI & below Physical Exam Constitutional: WD/WN, vitals as above average body habitus; no acute distress Neck: trachea midline, no thyromegaly Respiratory: no labored breathing Auscultation: + diminished lung sounds and + wheezes (expiratory wheeze) Gastrointestinal (Abdomen): normal bowel sounds, soft, nontender, no hepatosp lenomegaly Neurologic: PERRL, EOMI, accommodation nl, no face palsy, no dysarthria Psychiatric: A+Ox3, euthymic affect Results & Data Vital Signs (Past 12 Hours) Vital Signs Temp Pulse Pulse Resp BP Pulse Ox O2 Del Method 07/20/23 11:30 36.9 C 54 L 16 142/67 H 96 Nasal Cannula 07/20/23 07:30 36.4 C L 56 L 16 151/68 H 92 Nasal Cannula 07/20/23 07:30 59 L 07/20/23 02:56 36.4 C L 57 L 18 130/53 L 98 Nasal Cannula 07/19/23 23:59 71 O2 Flow Rate 07/20/23 11:30 2 07/20/23 07:30 2 07/20/23 07:30 07/20/23 02:56 2 07/19/23 23:59 Laboratory Results CBC 07/20/23 Range/Units 06:09 WBC 9.57 (4.8-10.8) K/ul RBC 3.03 L (4.20-5.40) M/uL Hgb 8.2 L (12.0-16.0) g/dl Hct 26.4 L (37.0-47.0) % Plt Count 257 (130-400) K/uL Neut # (Auto) 6.79 H (1.40-6.50) K/uL Lymph # (Auto) 1.62 (1.20-3.40) K/uL [place] # (Auto) 0.70 H (0.11-0.59) K/uL Eos # (Auto) 0.13 (0.00-0.50) K/uL Baso # (Auto) 0.02 (0.00-0.20) K/uL Comprehensive Metabolic Panel 07/20/23 Range/Units 06:09 Sodium 137 (136-145) mmol/L Potassium 4.8 (3.5-5.1) mmol/L Chloride 101 (98-107) mmol/L Carbon Dioxide 29 (21-32) mmol/L BUN 46 H (6-23) mg/dl Creatinine 1.73 H (0.6-1.2) mg/dl Glucose 114 H (70-99(Fasting)) mg/dl Calcium 9.1 (8.6-10.3) mg/dl Intake and Output 07/19/23 07/20/23 07/20/23 22:59 06:59 14:59 Intake Total 300 / 670 100 / 670 100 / 100 Output Total 300 / 550 Balance 0 / 120 100 / 120 100 / 100 Intake: IV 300 / 450 100 / 100 Doxycycline Hyclate 100 mg In 100 / 200 100 / 100 Dextrose 5% Mini-B 100 ml @ 50 mls/hr IV Q12H [facility] Rx#:[id number] Magnesium Sulfate / D5w 1 gm In 200 / 200 100 ml @ 50 mls/hr IV Q2H [facility] Rx#:[id number] Oral 100 / 220 Output: Urine Amount (Catheter) 300 / 550 [place]/Indwelling 300 / 550 Other: Weight 68.5 kg Weight Measurement Method Built in [facility] Diagnostic Findings Telemetry reviewed: Sinus bradycardia in the 50's echo report reviewed from 07/19/23: Compared with prior study, no significant change. LVEF 60-65% Mild concentric LVH Aortic valve sclerosis mild, without significant aortic valve stenosis Mild MR Mild TR Pulm pressure at 52 mmHg Grade II diastolic dysfunction. Medications Administered Current Inpatient Medications Acetaminophen (Acetaminophen 325 Mg Tab) 650 mg PO Q4H PRN PRN Reason: Pain or Fever Stop: 08/17/23 17:49 Albuterol (Albuterol Hfa 8 Gm Inhaler) 2 puffs INH Q6 PRN PRN Reason: Shortness Of Breath Stop: 08/17/23 17:49 Albuterol (Albut/Ipratrop 3mg/0.5mg Neb 3 Ml Vial) 3 ml NEB Q6R PRN; Protocol PRN Reason: Wheezing Stop: 08/17/23 17:49 Last Admin: 07/19/23 22:32 Dose: 3 ml Alprazolam (Alprazolam 0.5 Mg Tablet) 0.5 mg PO BID SABAS Stop: 08/17/23 20:59 Last Admin: 07/20/23 07:52 Dose: 0.5 mg Aspirin (Aspirin 81 Mg Ectab) 81 mg PO DAILY SABAS Stop: 08/17/23 17:49 Last Admin: 07/20/23 07:49 Dose: 81 mg Clonidine HCl (Clonidine Hcl 0.1 Mg Tab) 0.1 mg PO BID SABAS Stop: 08/18/23 08:59 Last Admin: 07/20/23 07:50 Dose: 0.1 mg Ergocalciferol (Ergocalciferol 1250 Mcg (50,000 Units) Cap) 1,250 mcg PO We@0900 SABAS Stop: 08/18/23 08:59 Last Admin: 07/19/23 08:42 Dose: 1,250 mcg Escitalopram Oxalate (Escitalopram Oxalate 10 Mg Tab) 5 mg PO DAILY SABAS Stop: 08/17/23 17:49 Last Admin: 07/20/23 07:50 Dose: 5 mg Felodipine (Felodipine 5 Mg Tabcr) 10 mg PO HS SABAS Stop: 08/18/23 20:59 Last Admin: 07/19/23 19:57 Dose: 10 mg Ferrous Sulfate (Ferrous Sulfate 325 Mg Tab) 325 mg PO DAILY S[facility]AS Stop: 08/18/23 08:59 Last Admin: 07/20/23 07:49 Dose: 325 mg Fluticasone Propionate (Fluticasone Propionate Na Spr 16 Gm Btl) 2 sprays HUMZA Q12 SABAS Stop: 08/17/23 20:59 Last Admin: 07/20/23 07:51 Dose: 2 sprays Guaifenesin (Guaifenesin 600 Mg Tabcr) 600 mg PO Q12 [facility] Stop: 08/17/23 20:59 Last Admin: 07/20/23 07:49 Dose: 600 mg Heparin Sodium (Porcine) (Heparin Sod 5,000 Unit/0.5 Ml Vial) 5,000 units SQ Q8 S[facility]AS Stop: 08/17/23 21:59 Last Admin: 07/20/23 05:46 Dose: 5,000 units Hydralazine HCl (Hydralazine Tab 50 Mg Tab) 100 mg PO BID SABAS Stop: 08/18/23 08:59 Last Admin: 07/20/23 07:49 Dose: 100 mg Ceftriaxone Sodium (Rocephin) 2,000 mg in 50 mls @ 100 mls/hr IV Q24H [facility] Stop: 07/23/23 12:59 Last Infusion: 07/19/23 14:12 Dose: Infused Doxycycline Hyclate 100 mg/ (Dextrose) 100 mls @ 50 mls/hr IV Q12H [facility] Stop: 07/25/23 18:59 Last Infusion: 07/20/23 09:37 Dose: Infused Loratadine (Loratadine 10 Mg Tab) 10 mg PO QAM [facility] Stop: 08/17/23 17:49 Last Admin: 07/20/23 07:50 Dose: 10 mg Magnesium Hydroxide (Magnesium Hydroxide Susp 30 Ml Udc) 30 ml PO Q12H PRN PRN Reason: Constipation Stop: 08/17/23 17:49 Multivitamins (Multivitamin Tab) 1 tab PO DAILY SABAS Stop: 08/18/23 08:59 Last Admin: 07/20/23 07:50 Dose: 1 tab Ondansetron HCl (Ondansetron 8mg Od Tab) 8 mg PO BID PRN PRN Reason: Nausea Stop: 08/17/23 17:49 Ondansetron HCl (Ondansetron Inj 2 Mg/Ml 2 Ml Vial) 4 mg IV Q6H PRN PRN Reason: Nausea Stop: 08/17/23 17:49 Oxycodone HCl (Oxycodone Hcl Ir 5 Mg Tab (Immediate Release)) 5 mg PO TID PRN PRN Reason: Pain (Scale Score 7-10) Stop: 08/01/23 17:49 Last Admin: 07/20/23 05:46 Dose: 5 mg Pantoprazole Sodium (Pantoprazole 40 Mg Tab) 40 mg PO DAILY [facility] Stop: 08/17/23 17:49 Last Admin: 07/20/23 07:50 Dose: 40 mg Rosuvastatin Calcium (Rosuvastatin Calcium 10 Mg Tab) 10 mg PO HS [facility] Stop: 08/17/23 20:59 Last Admin: 07/19/23 20:01 Dose: 10 mg Senna/Docusate Sodium (Docusate Sodium/Senna 50/8.6mg Tab) 1 tab PO QAM [facility] Stop: 08/18/23 08:59 Last Admin: 07/20/23 07:49 Dose: 1 tab Tamsulosin HCl (Tamsulosin Hcl 0.4 Mg Cap) 0.4 mg PO QAM [facility] Stop: 08/18/23 08:59 Last Admin: 07/20/23 07:49 Dose: 0.4 mg Umeclidinium/Vilanterol (Umeclidinium/Vilanterol 62.5/25mcg 7 Puffs/Inhaler) 1 puffs INH DAILY [facility] Stop: 08/17/23 17:49 Last Admin: 07/20/23 07:51 Dose: 1 puffs (2) Pneumonia Laterality: right Lung location: unspecified part of lung Pneumonia type: due to unspecified organism Qualified Code(s): J18.9 - Pneumonia, unspecified organism
--- NOTE | 2023-07-20 13:30 | Hospitalist Progress Note ---
Date of Service July 20, 2023 Assessment & Plan (1) Hypertensive heart disease with chronic diastolic congestive heart failure: (2) NANCY (acute kidney injury): (3) Elevated troponin I level: (4) Acute alteration in mental status: (5) Pneumonia: (6) Respiratory failure: Plan Ms. Dewey is a 78-year-old woman who has significant past medical history of chronic hypoxic respiratory failure on 2-3 L of oxygen, COPD, HTN, HLD, CKD-3b, gastritis, GERD, IBS, depression with anxiety, history of tobacco abuse and wheelchair-bound status 2/2 congenital hip dysplasia s/p multiple surgeries, as well as chronic opioid use who presents to [facility] due to altered mental status. Patient with decline over last week per daughter. Imaging concerning for pneumonia and volume overload. BNP elevated. Troponin like elevated from demand 2/2 infection/htn urgency/hfpef Acute hypoxic respiratory failure Bilateral pneumonia Patient presented to the hospital with concern of altered mental status and hypoxia. CT chest on admission shows cardiomegaly with emphysema. Multifocal patchy consolidation typical of pneumonia. Pro-Rajiv elevated BioFire negative Continue on ceftriaxone and doxycycline. Plan to treat for 7 days Continue home inhalers Duonebs prn Schedule mucinex BID, flutter valve Wean o2 prn Acute on chronic HFpEF Hypertensive Urgency Demand ischemia -ECHO from February 2023 with EF 65%, but new pulm htn, mitral/tricupsid regurg, no documented right heart strain, no wall motion abnormalities -High sensitive troponin of 675 on admission; up trended to 900 and down trended. -Home regimen: hydralazine 100mg BID, clonidine 0.1 BID, felodipine 10mg qhs Diuresed with IV Lasix. Continue on Lasix daily at discharge. Currently she is on 20 mg every 2 days. Strict [facility]ANII's Cardiology on board; no further cardiac workup at this time. #Acute metabolic encephalopathy likely secondary to underlying pneumonia and exacerbation of HF Delirium precautions Patient appears to be at baseline mentation. #NANCY on CKD IIIb Likely multifactorial-stable cardiorenal syndrome, secondary to hypoxia Creatinine down trended to 1.73 Monitor strict input and output #HLD Continue home ASA and rosuvastatin #Allergic rhinitis -Continue home flonase and loratadine #Depression #Anxiety -Continue home lexapro -Continue home xanax bid (also for burning mouth syndrome) #Chronic iron deficiency anemia -stable hgb -Continue home iron supplementation #GERD -Continue protonix daily #Nephrolithiasis c/b hydronephrosis s/p stenting 2021 -continue home tamsulosin 0.4 mg qam #Chronic pain on chronic opioids #Congenital Hip dysplasia s/p multiple surgeries #Burning mouth syndrome - Continue home Oxy 5 TID prn -Senakot scheduled DVT heparin sq Diet HH Admit PCU/tele Time spent evaluating patient, direct bedside care, chart review, placing orders, interpretation of diagnostic studies, discussion with consultants, patient, and family members, as well as other required patient management activities is 50 minutes Please note the above document was generated using voice recognition software. It may contain grammatical, syntax or spelling errors. Any formal questions or concerns about the content, text or information contained within the body of this dictation should be directly addressed to the provider for clarification Admission and Anticipated Discharge Date Admission Date: July 18, 2023 Subjective Patient seen and examined at bedside. She reports that she is feeling slightly better compared to yesterday. Oxygen requirement of 2 L/min via nasal cannula Review of Systems Review of Systems: All systems reviewed & are unremarkable except as noted in Subjective Physical Exam Physical Exam: Constitutional: WD/WN, vitals as above, NAD, sitting up in bed, pleasant, conversing easily Respiratory: Decreased breath sound at bases. Cardiovascular: RRR, no murmur, no edema Vessels: no JVD or carotid bruit Chest: normal inspection of chest Abdomen: normal bowel sounds, soft, nontender, no hepatosplenomegaly Musculoskeletal: no cyanosis or clubbing, extremities motor strength 5/5 Skin: no rashes, warm and dry normal turgor Neurologic: PERRL, EOMI, accommodation nl, no face palsy, no dysarthria CN's II- XI intact bilaterally and moves all extremities Psychiatric: A+Ox3, euthymic affect Results & Data Results & Data Vital Signs (Past 12 Hours) Vital Signs Temp Pulse Pulse Resp BP Pulse Ox O2 Del Method 07/20/23 11:30 36.9 C 54 L 16 142/67 H 96 Nasal Cannula 07/20/23 07:45 Nasal Cannula 07/20/23 07:30 36.4 C L 56 L 16 151/68 H 92 Nasal Cannula 07/20/23 07:30 59 L 07/20/23 02:56 36.4 C L 57 L 18 130/53 L 98 Nasal Cannula O2 Flow Rate 07/20/23 11:30 2 07/20/23 07:45 2 07/20/23 07:30 2 07/20/23 07:30 07/20/23 02:56 2 (5) Pneumonia Laterality: right Lung location: unspecified part of lung Pneumonia type: due to unspecified organism Qualified Code(s): J18.9 - Pneumonia, unspecified organism (6) Respiratory failure Chronicity: acute Respiratory failure complication: hypoxia Qualified Code(s): J96.01 - Acute respiratory failure with hypoxia
[2023-07-20] MEDS: FUROSEMIDE 20 MG TAB PO SCH (14:47)
[2023-07-20] MEDS: MAGNESIUM HYDROXIDE SUSP 30 ML UDC PO PRN (16:35)
[2023-07-20] MEDS: bisacodyL 10 MG SUPP PR STA (20:20)
[2023-07-20] MEDS: DOCUSATE SODIUM/SENNA 50/8.6MG TAB PO SCH (20:25)
[2023-07-20] MEDS: POLYETHYLENE (MIRALAX) 17 GM PACK PO STA (20:31)
[2023-07-21 06:49] LABS: Hematocrit (blood only) 28.7 % (37.0-47.0); Hemoglobin 9.3 g/dl (12.0-16.0); Mean Corpuscular Hemoglobin 27.8 pg (25.0-34.0); Mean Corpuscular Hgb Conc 32.4 g/dL (32.0-36.0); Mean Corpuscular Volume 85.7 fL (80.0-100.0); Mean Platelet Volume 10.3 fL (9.4-12.4); Platelet Count 309 K/uL (130-400); RDW Coefficient of Variation 13.2 % (11.5-14.5); Red Blood Count 3.35 M/uL (4.20-5.40); White Blood Count 9.37 K/ul (4.8-10.8)
[2023-07-21 07:14] LABS: Basophils # (auto) 0.06 K/uL (0.00-0.20); Basophils % (auto) 0.6 %; Eosinophils # (auto) 0.31 K/uL (0.00-0.50); Eosinophils % (auto) 3.3 %; Immature Granulocytes # (auto) 0.51 K/uL (0.01-0.20); Immature Granulocytes % (auto) 5.4 %; Lymphocytes # (auto) 1.59 K/uL (1.20-3.40); Monocytes # (auto) 0.62 K/uL (0.11-0.59); Monocytes % (auto) 6.6 %; Neutrophils # (auto) 6.28 K/uL (1.40-6.50); Neutrophils % (auto) 67.1 %
[2023-07-21 07:18] LABS: BUN Creatinine Ratio 23.5 (10-20); Calcium 9.2 mg/dl (8.6-10.3); Creatinine Clr Calc Pharmacy 24.9 ml/min; Est GFR (African American) 32.7 ml/min; Est GFR (Non-African American) 28.2 ml/min; Potassium 4.7 mmol/L (3.5-5.1)
--- NOTE | 2023-07-21 10:53 | Electrocardiogram Report ---
Test Reason : Blood Pressure : / mmHG Vent. Rate : 064 BPM Atrial Rate : 064 BPM P-R Int : 188 ms QRS Dur : 098 ms QT Int : 460 ms P-R-T Axes : 090 046 082 degrees QTc Int : 474 ms Normal sinus rhythm Nonspecific ST abnormality Abnormal ECG When compared with ECG of 18-JUL-2023 11:34, No significant change Confirmed by Fish Avelar ([id number]) on 07/21/2023 10:53:35 AM Referred By: REFERRED SELF Confirmed By:Fish Avelar
--- NOTE | 2023-07-21 16:31 | Hospitalist Progress Note ---
Date of Service July 21, 2023 Assessment & Plan (1) Hypertensive heart disease with chronic diastolic congestive heart failure: (2) NANCY (acute kidney injury): (3) Elevated troponin I level: (4) Acute alteration in mental status: (5) Pneumonia: (6) Respiratory failure: Plan Ms. Dewey is a 78-year-old woman who has significant past medical history of chronic hypoxic respiratory failure on 2-3 L of oxygen, COPD, HTN, HLD, CKD-3b, gastritis, GERD, IBS, depression with anxiety, history of tobacco abuse and wheelchair-bound status 2/2 congenital hip dysplasia s/p multiple surgeries, as well as chronic opioid use who presented to [facility] due to altered mental status. Patient with decline over last [employer] week per daughter. Imaging concerning for pneumonia and volume overload. BNP elevated. Troponin like elevated from demand 2/2 infection/htn urgency/hfpef Acute hypoxic respiratory failure Bilateral pneumonia Patient presented to the hospital with concern of altered mental status and hypoxia. CT chest on admission shows cardiomegaly with emphysema. Multifocal patchy consolidation typical of pneumonia. Pro-Rajiv elevated BioFire negative Continue on ceftriaxone and doxycycline. Plan to treat for 7 days Continue home inhalers Duonebs prn Schedule mucinex BID, flutter valve Wean o2 prn as [place] Acute on chronic HFpEF Hypertensive Urgency Demand ischemia -ECHO from February 2023 with EF 65%, but new pulm htn, mitral/tricupsid regurg, no documented right heart strain, no wall motion abnormalities -High sensitive troponin of 675 on admission; up trended to 900 and down trended. -Home regimen: hydralazine 100mg BID, clonidine 0.1 BID, felodipine 10mg qhs Diuresed with IV Lasix. Continue on Lasix daily at discharge. [employer] she was on 20 mg every 2 days. Strict [facility]'s Cardiology on board; no further cardiac workup at this time. #Acute metabolic encephalopathy likely secondary to underlying pneumonia and exacerbation of HF Delirium precautions Patient appears to be at baseline mentation. #NANCY on CKD IIIb Likely multifactorial-stable cardiorenal syndrome, secondary to hypoxia Creatinine down trended to 1.7 Monitor strict input and output #HLD Continue home ASA and rosuvastatin #Allergic rhinitis -Continue home flonase and loratadine #Depression #Anxiety -Continue home lexapro -Continue home xanax bid (also for burning mouth syndrome) #Chronic iron deficiency anemia -stable hgb -Continue home iron supplementation #GERD -Continue protonix daily #Nephrolithiasis c/b hydronephrosis s/p stenting 2021 -continue home tamsulosin 0.4 mg qam #Chronic pain on chronic opioids #Congenital Hip dysplasia s/p multiple surgeries #Burning mouth syndrome - Continue home Oxy 5 TID prn -Senakot scheduled DVT heparin sq Diet HH Admit PCU/tele Please note the above document was generated using voice recognition software. It may contain grammatical, syntax or spelling errors. Any formal questions or concerns about the content, text or information contained within the body of this dictation should be directly addressed to the provider for clarification Admission and Anticipated Discharge Date Admission Date: July 18, 2023 Subjective Patient seen and examined at bedside. She reports that she is feeling better, reports eating okay and moving bowels okay, denies cough. Reports breathing getting better. Oxygen requirement of 2 L/min via nasal cannula which is her baseline oxygen at home per patient. Physical Exam Physical Exam: Constitutional: WD/WN, vitals as above, NAD, sitting up in bed, pleasant, conversing easily Respiratory: Decreased breath sound at bases. Occasional BB crackles Cardiovascular: RRR, no murmur, no edema Vessels: no JVD or carotid bruit Chest: normal inspection of chest Abdomen: normal bowel sounds, soft, nontender, no hepatosplenomegaly Musculoskeletal: no cyanosis or clubbing, extremities motor strength 5/5 Skin: no rashes, warm and dry normal turgor Neurologic: PERRL, EOMI, accommodation nl, no face palsy, no dysarthria CN's II- XI intact bilaterally and moves all extremities Psychiatric: A+Ox3, euthymic affect Results & Data Results & Data Vital Signs (Past 12 Hours) Vital Signs Temp Pulse Pulse Pulse Resp BP Pulse Ox 07/21/23 16:11 71 07/21/23 15:35 36.7 C 67 19 163/75 H 97 07/21/23 11:26 07/21/23 10:55 36.8 C 71 17 138/74 96 07/21/23 07:24 36.3 C L 63 20 167/64 H 96 07/21/23 07:13 62 O2 Del Method O2 Flow Rate 07/21/23 16:11 07/21/23 15:35 Nasal Cannula 2 07/21/23 11:26 Nasal Cannula 2 07/21/23 10:55 Nasal Cannula 2 07/21/23 07:24 Nasal Cannula 2 07/21/23 07:13 (5) Pneumonia Laterality: right Lung location: unspecified part of lung Pneumonia type: due to unspecified organism Qualified Code(s): J18.9 - Pneumonia, unspecified organism (6) Respiratory failure Chronicity: acute Respiratory failure complication: hypoxia Qualified Code(s): J96.01 - Acute respiratory failure with hypoxia
[2023-07-22 07:31] LABS: Hematocrit (blood only) 28.9 % (37.0-47.0); Mean Corpuscular Hemoglobin 27.4 pg (25.0-34.0); Mean Corpuscular Hgb Conc 31.1 g/dL (32.0-36.0); Mean Corpuscular Volume 87.8 fL (80.0-100.0); Mean Platelet Volume 9.8 fL (9.4-12.4); Platelet Count 293 K/uL (130-400); RDW Coefficient of Variation 13.5 % (11.5-14.5); RDW Standard Deviation 43.4 fL (36.4-46.3); Red Blood Count 3.29 M/uL (4.20-5.40); White Blood Count 8.89 K/ul (4.8-10.8)
[2023-07-22 07:53] LABS: Calcium 9.4 mg/dl (8.6-10.3); Creatinine Clr Calc Pharmacy 26.4 ml/min; Est GFR (African American) 35.4 ml/min; Est GFR (Non-African American) 30.6 ml/min; Magnesium 1.8 mg/dl (1.7-2.4); Phosphorus 2.6 mg/dl (2.5-4.9); Potassium 5.3 mmol/L (3.5-5.1)
[2023-07-22 11:55] LABS: BUN Creatinine Ratio 23.2 (10-20); Creatinine Clr Calc Pharmacy 27.1 ml/min; Est GFR (African American) 36.5 ml/min; Est GFR (Non-African American) 31.5 ml/min
[2023-07-22 13:41] LABS: Calcium 9.5 mg/dl (8.6-10.3)
--- NOTE | 2023-07-22 14:07 | Discharge Summary ---
Date of Service July 22, 2023 Admission HPI Per Admitting Provider Ms. Dewey is a 78-year-old woman who has significant past medical history of chronic hypoxic respiratory failure on 2-3 L of oxygen, COPD, HTN, HLD, CKD-3b, gastritis, GERD, IBS, depression with anxiety, history of tobacco abuse and wheelchair-bound status 2/2 congenital hip dysplasia s/p multiple surgeries, as well as chronic opioid use who presents to [facility] due to altered mental status. Patient states she isn't clear why she is in the hospital. She notes that she is feeling better, but isn't sure why she is in the hospital. She denies feeling ill, chest pain, palpitations and simply states "[she] wants to go home." She is chronically on 2L NC. At baseline, she has SOB on exertion. She experiences chronic pain and suffers with burning mouth syndrome. Further history gathered from daughter on phone. The daughter reports that the patient doesn't drink much fluids and is consistently being encouraged to drink. Patient has been with decreased appetite and fluid intake more so in the last week. Patient endorsing more fatigue in recent days. Patient was found in bed without oxygen on her nose this morning with low oxygen levels in the 60s- it is unclear how long she was asleep without her o2. Labs revealed BUN 45, Cr. 2.29. BNP 564, Trop up to 833 procal 2.91 VBG with pCO2 of 53 (c/w baseline on prior) No medications this morning. Patient states her name, the year 2023, thought it was Monday, and knew she was in a hospital--not clear which one she was brought to In the ED, vitals were notable for BP of up to 190s-200s, HR of 90s, and O2 sat of high 90s-100 on 6L NC on exam Imaging revealed concerns for pneumonia, trace pleural effusion, mediastinal LAD EKG with PVCs ED interventions: dex 10, ctx, albuterol, s/p 1 L IV Additional: home po clonidine and IV hydral Patient to be admitted to PCU/tele for further evaluation and management of altered mental status and concern for pneumonia Admission Exam Per Admitting Provider GENERAL APPEARANCE: AxOx2,frail woman, but no acute distress HEENT: NC, AT. MMM. EOMI, clear conjunctiva, oropharynx clear. NECK: Supple without lymphadenopathy. No stiffness or restricted ROM. HEART: tachycardic SUYAPA+ LUNGS: diminished breath sounds, poor airway movement (more 2/2 effort), occasional rhonchi ABDOMEN: Soft, nontender, nondistended with good bowel sounds heard. EXTREMITIES: Without cyanosis, clubbing or edema. NEUROLOGICAL: Grossly nonfocal. Alert and oriented, moving all extremities; however, minimal BLE movement 2/2 pain . CN not formally tested but appear grossly intact. Skin: Warm and dry without any rash. Principal Diagnosis Acute hypoxic respiratory failure Bilateral pneumonia Acute on chronic HFpEF Acute metabolic encephalopathy NANCY on CKD stage IIIb Discharge Exam Constitutional: WD/WN, vitals as above, NAD, sitting up in bed, pleasant, conversing easily Respiratory: Decreased breath sound at bases. Occasional BB crackles Cardiovascular: RRR, no murmur, no edema Vessels: no JVD or carotid bruit Chest: normal inspection of chest Abdomen: normal bowel sounds, soft, nontender, no hepatosplenomegaly Musculoskeletal: no cyanosis or clubbing, extremities motor strength 5/5 Skin: no rashes, warm and dry normal turgor Neurologic: PERRL, EOMI, accommodation nl, no face palsy, no dysarthria CN's II- XI intact bilaterally and moves all extremities Psychiatric: A+Ox3, euthymic affect Discharge Data Allergies Allergy/AdvReac Type Severity Reaction Status Date / Time metronidazole [From Flagyl] Allergy Severe SHORTNESS Verified 03/12/23 08:36 OF BREATH amlodipine AdvReac Intermediate left leg Verified 03/12/23 08:36 numbness cefuroxime AdvReac Intermediate Gastrointestinal Verified 03/12/23 08:36 Upset Cephalosporins AdvReac Intermediate Gastrointestinal Verified 03/12/23 08:36 Upset ciprofloxacin AdvReac Intermediate Gastrointestinal Verified 03/12/23 08:36 Upset erythromycin base AdvReac Intermediate Gastrointestinal Verified 03/12/23 08:36 Upset sulfamethoxazole AdvReac Intermediate hyperkalemi Verified 03/12/23 08:36 [From Bactrim] a trimethoprim [From Bactrim] AdvReac Intermediate hyperkalemi Verified 03/12/23 08:36 a Consultations 07/18/23 14:02 ED Decision to Admit Stat 07/18/23 20:25 Consult Cardiology Routine Ordered Studies 07/18/23 13:02 CT head/brain wo con Stat 07/18/23 13:09 CT abd pelvis wo con Stat CT chest diagnostic wo con Stat Hospital Course (1) Hypertensive heart disease with chronic diastolic congestive heart failure: (2) NANCY (acute kidney injury): (3) Elevated troponin I level: (4) Acute alteration in mental status: (5) Pneumonia: (6) Respiratory failure: Plan Ms. Dewey is a 78-year-old woman who has significant past medical history of chronic hypoxic respiratory failure on 2-3 L of oxygen, COPD, HTN, HLD, CKD-3b, gastritis, GERD, IBS, depression with anxiety, history of tobacco abuse and wheelchair-bound status 2/2 congenital hip dysplasia s/p multiple surgeries, as well as chronic opioid use who presented to [facility] due to altered mental status. 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 Imaging concerning for pneumonia and volume overload. BNP elevated. Troponin like elevated from demand 2 infection/htn urgency/hfpef Acute hypoxic respiratory failure Bilateral pneumonia Patient presented to the hospital with concern of altered mental status and hypoxia. CT chest on admission shows cardiomegaly with emphysema. Multifocal patchy consolidation typical of pneumonia. Pro-Rajiv elevated BioFire negative Continue on ceftriaxone and doxycycline. Plan to treat for 7 days, to p.o. antibiotics on discharge. Continue home inhalers Duonebs prn Patient back to her baseline oxygen requirement, reports feeling better. Patient is hemodynamically stable and would like to go home today. Acute on chronic HFpEF Hypertensive Urgency Demand ischemia -ECHO from February 2023 with EF 65%, but new pulm htn, mitral/tricupsid regurg, no documented right heart strain, no wall motion abnormalities -High sensitive troponin of 675 on admission; up trended to 900 and down trended. -Home regimen: hydralazine 100mg BID, clonidine 0.1 BID, felodipine 10mg qhs Patient to continue with Lasix 20 mg daily on discharge, patient to follow-up with cardiology in 2 to 4 weeks time upon discharge. #Acute metabolic encephalopathy likely secondary to underlying pneumonia and exacerbation of HF Delirium precautions Patient appears to be at baseline mentation. #NANCY on CKD IIIb Likely multifactorial-stable cardiorenal syndrome, secondary to hypoxia Creatinine down trended Resolved back to baseline. #HLD Continue home ASA and rosuvastatin #Allergic rhinitis -Continue home flonase and loratadine #Depression #Anxiety -Continue home lexapro -Continue home xanax bid (also for burning mouth syndrome) #Chronic iron deficiency anemia -stable hgb -Continue home iron supplementation #GERD -Continue protonix daily #Nephrolithiasis c/b hydronephrosis s/p stenting 2021 -continue home tamsulosin 0.4 mg qam #Chronic pain on chronic opioids #Congenital Hip dysplasia s/p multiple surgeries #Burning mouth syndrome - Continue home Oxy 5 TID prn -Senakot scheduled DVT heparin sq Diet HH Admit PCU/tele Patient's daughter was given a phone call and updated, answered all her questions. Patient is being discharged with following instruction at the point of discharge: Follow-up with your primary care physician within a week time and likely you will need labs CBC/CMP/magnesium/phosphorus. You were evaluated in the hospital for bilateral pneumonia and acute on chronic heart failure with preserved ejection fraction. You will be discharged on antibiotic to complete the course for pneumonia. Take probiotics for the duration of antibiotic. Cardiology evaluated you for heart failure, you will be continuing your Lasix 20 mg daily. Follow-up with your cardiology in 2 to 4 weeks time upon discharge. Take your medications as prescribed. Please make sure that you are able to get your medications today by calling your pharmacy before you leave the hospital so that your treatment continuity is not broken. Please note the above document was generated using voice recognition software. It may contain grammatical, syntax or spelling errors. Any formal questions or concerns about the content, text or information contained within the body of this dictation should be directly addressed to the provider for clarification Home Health Attestation I certify that this patient is under my care and that I, or a physicians assistant plant control operator working with me, had a face to-face encounter that meets the home health dsag-se-ywoy encounter requirements with this patient. The encounter with the patient was in whole, or in part, for the following medical condition, which is the primary reason for home health care (list medical condition): I certify that, based on my findings, the following services are medically necessary home health services: My clinical findings support the need for the above services because: Further, I certify that my clinical findings support that this patient is homebound (i.e. absences from home require considerable and taxing effort and are for medical reasons or temple services or infrequently or of short durat ion when for other reasons) because: Certification for Home Health Services: Based on the above findings, I certify that this patient is confined to the home and needs intermittent senior living care, physical therapy and/or speech therapy or continues to need occupational therapy. The patient is under my care, and I have initiated the establishment of the plan of care. This patient will be followed by a physician who will periodically review the plan of care. Total Time Total Time Spent Total Time Spent (In Minutes): 45 Discharge Plan Discharge Items Patient Disposition: Home - Home Health Services Reason For Visit: AMS Discharge Diagnosis: Acute hypoxic respiratory failure Bilateral pneumonia Acute on chronic HFpEF Acute metabolic encephalopathy NANCY on CKD stage IIIb Activity: Resume your previous activity Non-emergency contact: Primary Care Provider Call non-emergency contact if: you have any medication questions, your symptoms worsen and your temperature is above 101 Follow-up/Referrals: Bernard Norris MD [Primary Care Provider] - Diet: Heart Healthy and Low Potassium (2gm) Addtl Attending Provider Instructions: Follow-up with your primary care physician within a week time and likely you will need labs CBC/CMP/magnesium/phosphorus. You were evaluated in the hospital for bilateral pneumonia and acute on chronic heart failure with preserved ejection fraction. You will be discharged on antibiotic to complete the course for pneumonia. Take probiotics for the duration of antibiotic. Cardiology evaluated you for heart failure, you will be continuing your Lasix 20 mg daily. Follow-up with your cardiology in 2 to 4 weeks time upon discharge. Take your medications as prescribed. Please make sure that you are able to get your medications today by calling your pharmacy before you leave the hospital so that your treatment continuity is not broken. Pending Studies at Discharge: Yes Stand-Alone Forms: My [facility], Smoking Cessation Medications and DC Order Prescriptions: New furosemide 20 mg Tablet 20 mg PO QAM Qty: 30 0RF guaifenesin [Mucinex] 600 mg Tablet Extended Release 12hr 600 mg PO Q12 5 Days Qty: 10 0RF cefdinir 300 mg capsule 300 mg PO DAILY 3 Days Qty: 3 0RF doxycycline hyclate 100 mg tablet 100 mg PO BID 3 Days Qty: 6 0RF Probiotic 3 billion cell capsule 3,000 mmu cells PO DAILY 7 Days Qty: 7 0RF Rx Instructions: administer with a meal Continued alprazolam [Xanax] 0.5 mg Tablet 0.25 - 0.5 mg PO BID pantoprazole [Protonix] 40 mg Tablet,Delayed Release (Dr/Ec) 40 mg PO DAILY loratadine [Claritin] 10 mg Tablet 10 mg PO QAM albuterol sulfate 90 mcg/actuation Hfa Aerosol Inhaler 2 puff INHALATION DIRECTED PRN (Reason: Shortness Of Breath) aspirin 81 mg Tablet,Delayed Release (Dr/Ec) 81 mg PO DAILY multivitamin Tablet 1 tab PO DAILY ondansetron 4 mg tablet,disintegrating 8 mg translingual BID PRN (Reason: Nausea) fluticasone propionate 50 mcg/actuation spray,suspension 2 spray INTRANASAL Q12 cholecalciferol (vitamin D3) 1,250 mcg (50,000 unit) capsule 50,000 unit PO WE Anoro Ellipta 62.5-25 mcg/actuation blister with device 1 ea INHALATION DAILY diclofenac sodium [Voltaren Arthritis Pain] 1 % Gel 2 g EXT Q6H PRN (Reason: back pain) Qty: 100 0RF Rx Instructions: over upper mid back area for pain, every 6 hours as needed for mild to moderate pain sennosides-docusate sodium [Senokot-S] 8.6-50 mg Tablet 1 tab PO QAM Qty: 30 0RF rosuvastatin 10 mg Tablet 10 mg PO HS ferrous sulfate 325 mg (65 mg iron) Tablet 325 mg PO DAILY escitalopram oxalate 5 mg Tablet 5 mg PO DAILY oxycodone 5 mg Tablet 5 mg PO TID PRN (Reason: Pain (Scale Score 7-10)) clonidine HCl 0.2 mg tablet 0.1 mg PO BID tamsulosin 0.4 mg capsule 0.4 mg PO QAM hydralazine 100 mg tablet 100 mg PO BID felodipine 10 mg tablet extended release 24 hr 10 mg PO HS Discontinued furosemide 20 mg tablet 20 mg PO Q2D Discharge Orders: Discharge Order (Routine); Ordered 07/22/23 Ordered By: Toshia Weston Admission Data Admit Date/Time: 07/18/23 14:32 Attending Provider: Toshia Weston Admit Provider: Jenna Hernandez Primary Care Provider: Bernard Norris Other Providers: Jenna Hernandez; Eloy Delgadillo
== END 2023-07-22 16:38 | disposition home or self-care (01) | DRG 193 ==
LOC: ED 11:28 → SUATTDRO 14:32 → 2S 14:32

== ENCOUNTER 2023-09-19 11:34 | Inpatient (IN) ==
[2023-09-19 12:06] LABS: Eosinophils # (auto) 0.01 K/uL (0.00-0.50); Eosinophils % (auto) 0.2 %; Hematocrit (blood only) 28.2 % (37.0-47.0); Hemoglobin 8.9 g/dl (12.0-16.0); Immature Granulocytes # (auto) 0.02 K/uL (0.01-0.20); Immature Granulocytes % (auto) 0.4 %; Lymphocytes # (auto) 0.71 K/uL (1.20-3.40); Lymphocytes % (auto) 12.8 %; Mean Corpuscular Hemoglobin 28.3 pg (25.0-34.0); Mean Corpuscular Hgb Conc 31.6 g/dL (32.0-36.0); Mean Corpuscular Volume 89.5 fL (80.0-100.0); Mean Platelet Volume 9.7 fL (9.4-12.4); Monocytes # (auto) 0.75 K/uL (0.11-0.59); Monocytes % (auto) 13.6 %; Neutrophils # (auto) 4.04 K/uL (1.40-6.50); Platelet Count 170 K/uL (130-400); RDW Coefficient of Variation 14.9 % (11.5-14.5); Red Blood Count 3.15 M/uL (4.20-5.40); White Blood Count 5.53 K/ul (4.8-10.8)
--- NOTE | 2023-09-19 12:42 | XRay Report ---
XR chest 1V portable CLINICAL HISTORY: Dyspnea. COMPARISON STUDY: Chest radiograph and chest CT July 18, 2023. FINDINGS: Lung volumes are normal. There is no pneumothorax or pleural effusion. There is mild cardio megaly without evidence for pulmonary edema. Minimal right lower lung opacity has significantly impro rohini when compared to prior chest radiograph and chest CT. IMPRESSION: 1. Near complete resolution of right lower lung pneumonia since prior chest radiograph and chest CT. 2. Cardiomegaly without evidence for pulmonary edema. ACT 112: Negative or not required by law. Electronically signed by: Florentin Reina M.D. 09/19/2023 12:41 PM
[2023-09-19 12:55] LABS: Adenovirus PCR Not Detected (NotDetected); Bordetella parapertussis PCR Not Detected (NotDetected); Bordetella pertussis PCR Not Detected (NotDetected); Chlamydia pneumoniae PCR Not Detected (NotDetected); Coronavirus 229E PCR Not Detected (NotDetected); Coronavirus CoV-2 (COVID19)PCR DETECTED (NotDetected); Coronavirus HKU1 PCR Not Detected (NotDetected); Coronavirus NL63 PCR Not Detected (NotDetected); Coronavirus OC43PCR Not Detected (NotDetected); Human Metapneumovirus PCR Not Detected (NotDetected); Influenza A PCR Not Detected (NotDetected); Influenza B PCR Not Detected (NotDetected); Mycoplasma pneumoniae PCR Not Detected (NotDetected); Parainfluenza Virus 1 PCR Not Detected (NotDetected); Parainfluenza Virus 2 PCR Not Detected (NotDetected); Parainfluenza Virus 3 PCR Not Detected (NotDetected); Parainfluenza Virus 4 PCR Not Detected (NotDetected); Respiratory Syncytial VirusPCR Not Detected (NotDetected); Rhinovirus/Enterovirus PCR Not Detected (NotDetected)
[2023-09-19 12:56] LABS: Albumin Level 3.7 gm/dl (3.4-5.0); Bilirubin,Total 0.2 mg/dl (0.2-1.0); Calcium 8.2 mg/dl (8.6-10.3); Potassium 4.6 mmol/L (3.5-5.1)
[2023-09-19] MEDS: SODIUM CHLORIDE 0.9% 1,000 ML IV SCH (12:59)
[2023-09-19 13:02] LABS: Albumin Globulin Ratio 1.2 (0.9-2); BUN Creatinine Ratio 18.7 (10-20); Creatinine Clr Calc Pharmacy 20.4 ml/min; Est GFR (African American) 27.2 ml/min; Est GFR (Non-African American) 23.4 ml/min; Total Protein 6.7 gm/dl (6.0-8.3)
[2023-09-19 13:10] LABS: Troponin I High Sensitivity 59.3 pg/ml (0-14)
--- NOTE | 2023-09-19 13:11 | Emergency Department Note ---
Impression & Plan Acute exacerbation of chronic obstructive pulmonary disease (COPD), COVID-19 ED Provider Note ED Provider Note NAME: JARVIS MATOS AGE:78 SEX: Female : 1945 ARRIVES VIA: EMS INFORMANT: Patient ED PROVIDER(s): Bruna Pro DO CHIEF COMPLAINT: Sore throat, fever, cough HPI: This is a 78-year-old female who presents emergency department due to concern for sore throat, fever, and cough which began yesterday. She states she does have a history of COPD and wears oxygen chronically at 2 L. She states her cough has been productive of clear sputum, no hemoptysis. She denies any increased shortness of breath or chest pain. She states she has had a decline in her appetite and increased fatigue, but no vomiting, abdominal pain, or diarrhea. She denies any recent leg swelling. She denies any known sick contacts. She denies any change in her medications. She states she does use MDI/nebulizers at home additionally. PAST MEDICAL HISTORY:See Below PAST SURGICAL HISTORY:See Below FAMILY HISTORY:See Below SOCIAL HISTORY:See Below HOME MEDICATIONS:See Below ALLERGIES:See Below VITALS:See Below PHYSICAL EXAMINATION: GENERAL: alert, well appearing, well nourished, no distress, non-toxic, nasal cannula in place EYE EXAM: normal conjunctiva, PERRL and EOM's grossly intact OROPHARYNX: no exudate, no erythema, lips, buccal mucosa, and tongue normal and mucous membranes are dry NECK: supple, no nuchal rigidity, no adenopathy, non-tender LUNGS: Diminished bilaterally to auscultation. Normal chest wall mechanics, no r/r, faint end expiratory wheeze HEART: no murmurs, S1 normal and S2 normal ABDOMEN: abdomen soft, non-tender, normo-active bowel sounds, no masses, no rebound or guarding. BACK: Back is symmetrical on inspection and there is no deformity, no midline tenderness, no CVA tenderness. SKIN: no rashes, petechiae, orbruising UPPER EXTREMITIES: upper extremities are grossly normal. FROM, nml pulses b/l. LOWER EXTREMITIES: No pitting edema. FROM, nml pulses b/l. NEURO EXAM: Normal sensorium, cranial nerves II-XII grossly intact, normal speech, no facial droop,nogross weakness of arms, no gross weakness of legs. Gross sensation intact. No ataxia. Vital Signs: reviewed and remarkable Differential Diagnosis: pneumonia, bronchitis, COPD/Asthma exacerbation, pneumothorax, pulmonary embolism, congestive heart failure, acute coronary syndrome, as well as others were considered MEDICAL DECISION MAKING: This is a 78-year-old female presents emergency department due to sore throat, cough, and fever. Patient does have a history of COPD and wears oxygen chronically. She was afebrile and vital signs stable on arrival. Labs drawn and sent, IV established, EKG and chest ray performed bedside interpreted me and patient monitored on telemetry. Patient started on gentle IV fluid hydration and given DuoNeb treatment. Patient also given Magic mouthwash for her sore throat. Patient given IV Tylenol additionally. Patient reported no increase since being short of breath. Nasal swab obtained and sent additionally and was positive for COVID. Patient noted to have anemia but this appears stable compared to prior. She does have a history of CKD and creatinine appears stable compared to prior. Patient's troponin was elevated however she denied chest pain or difficulty breathing, no acute EKG changes were noted. I suspect this is likely to infection or increased demand. Given she was COVID-positive we did discuss possible dispositions. We did speak with the patient's daughter who was concerned as her is a transplant patient. Given the patient lives with her daughter and son-in-law and they were concerned for possible exposure, they asked if there was a possibility for temporary respite placement in a local facility. I did discuss this with case management who investigated the stated there were no options for short-term respite care placement. In the interim until a safe disposition can be arranged, patient will be a brought in for additional inpatient evaluation and management. Case discussed with the hospitalist team. Consultation(s): 170: Discussed with Kalin Maria hospitalist team, for additional evaluation and management. ER Treatment Provided: See below Diagnostics Interpreted By Me: -ECG: Normal sinus at 62, normal axis, normal intervals, no acute ST/T wave change -Cardiac Monitoring: An order was placed for continuous cardiac monitoring. The monitor shows a rate of 60 with normal sinus rhythm. -Laboratory studies: As stated above and show below. -Imaging studies: X-ray Chest: A single view study of the chest was reviewed and was negative for cardiomegaly, focal infiltrate, effusion, pulmonary edema, or wide mediastinum. 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 Acute heart failure with preserved ejection fraction (HFpEF) COPD exacerbation Acute on chronic respiratory failure with hypoxia and hypercapnia Elevated troponin (Acute) COPD (chronic obstructive pulmonary disease) (Acute) Acute UTI (Acute) CKD (chronic kidney disease) (Acute) Elevated troponin (Acute) Acute right flank pain (Acute) Chronic respiratory failure UTI (urinary tract infection) Epigastric abdominal pain (Acute) Pancreas cyst (Acute) CKD (chronic kidney disease) (Acute) Frequent falls (Acute) Weakness Kidney stone Hypomagnesemia (Acute) Hydronephrosis concurrent with and due to calculi of kidney and ureter (Acute) Hypertensive urgency Anemia Elevated troponin Encounter for pre-operative examination NANCY (acute kidney injury) Abdominal pain 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 COPD (chronic obstructive pulmonary disease) with chronic respiratory failure per discharge summary records 01/27/22 HLD (hyperlipidemia) HTN (hypertension) (Acute) Fracture of right hip hx Medical History CKD (chronic kidney disease) stage 3, GFR 30-59 ml/min History of blood transfusion 01/08 GERD (gastroesophageal reflux disease) On home oxygen therapy 2lpm via n/c PRN Kidney stones Pancreatic cyst monitoring Congenital hip deformity bilateral Chronic pain Chronic headaches Migraine Rhabdomyolysis pt's family denies Surgical History History of esophagogastroduodenoscopy (EGD) History of colonoscopy H/O knee surgery Left wide osteotomy for extra cartilidge History of total hip arthroplasty right History of hip surgery r/t congenital hip deformity as a young child. Hx of hernia repair History of removal of ovarian cyst Hx of hysterectomy Hx of appendectomy Family History Mother Coronary heart disease Father Coronary heart disease Brother Diabetes Brother Coronary heart disease Other Heart disease Hypertension No family history of adverse response to anesthesia Social History Smoking Status: Former smoker Tobacco Type: Cigarettes Cigarettes Per Day: quit 3 years ago; Second Hand Exposure: No; Do You Dip or Chew Tobacco: No; Hx Alcohol Use: No Hx Substance Use: No Preferred Language: Kazakh Communication Ability: Effective Visual Impairment: No Limitations Legal Paraprofessional Required: No Beliefs That Will Affect Care: None marital status: / Current Living Situation: Family Current Living Situation Comment: daughter and son-in-law How many Children do You have: 2 Feels Safe at Home: Yes Safety Concerns: Feels Safe At This Time Assistive Devices: Wheelchair Allergies Allergies Allergy/AdvReac Type Severity Reaction Status Date / Time metronidazole [From Flagyl] Allergy Severe SHORTNESS Verified 09/19/23 16:15 OF BREATH amlodipine AdvReac Intermediate left leg Verified 09/19/23 16:15 numbness cefuroxime AdvReac Intermediate Gastrointestinal Verified 09/19/23 16:15 Upset Cephalosporins AdvReac Intermediate Gastrointestinal Verified 09/19/23 16:15 Upset ciprofloxacin AdvReac Intermediate Gastrointestinal Verified 09/19/23 16:15 Upset erythromycin base AdvReac Intermediate Gastrointestinal Verified 09/19/23 16:15 Upset sulfamethoxazole AdvReac Intermediate hyperkalemi Verified 09/19/23 16:15 [From Bactrim] a trimethoprim [From Bactrim] AdvReac Intermediate hyperkalemi Verified 09/19/23 16:15 a Home Meds Home Medications Medication Instructions Recorded Confirmed albuterol sulfate 90 mcg/actuation 2 puff inhalation DIRECTED PRN 12/21/21 09/19/23 aerosol inhaler Shortness Of Breath alprazolam 0.5 mg tablet (Xanax) 0.25 - 0.5 mg PO BID Anxiety 12/21/21 09/19/23 loratadine 10 mg tablet (Claritin) 10 mg PO QAM 12/21/21 09/19/23 pantoprazole 40 mg tablet,delayed 40 mg PO BID 12/21/21 09/19/23 release (Protonix) aspirin 81 mg tablet,delayed 81 mg PO DAILY 04/01/22 09/19/23 release escitalopram oxalate 5 mg tablet 5 mg PO DAILY 06/01/22 09/19/23 ferrous sulfate 325 mg (65 mg 325 mg PO DAILY 06/01/22 09/19/23 iron) tablet fluticasone propionate 50 2 spray intranasal Q12 09/28/22 09/19/23 mcg/actuation nasal spray,suspension multivitamin 1 tab PO DAILY 09/28/22 09/19/23 umeclidinium 62.5 mcg-vilanterol 1 ea inhalation DAILY 09/28/22 09/19/23 25 mcg/actuation powdr for inhalation (Anoro Ellipta) rosuvastatin 10 mg tablet 10 mg PO HS 03/12/23 09/19/23 felodipine 10 mg tablet,extended 10 mg PO HS 07/18/23 09/19/23 release 24 hr clonidine HCl 0.1 mg tablet 0.1 mg PO BID 09/19/23 09/19/23 ergocalciferol (vitamin D2) 1,250 50,000 unit PO WK 09/19/23 09/19/23 mcg (50,000 unit) capsule fentanyl 12 mcg/hr transdermal 1 patch transdermal Q72H 09/19/23 09/19/23 patch hydralazine 100 mg tablet 100 mg PO BID 09/19/23 09/19/23 oxycodone 5 mg tablet 5 mg PO Q8H PRN moderate pain 4-10 09/19/23 09/19/23 Previous Rx's Medication Instructions Recorded diclofenac sodium 1 % topical gel 2 g EXT Q6H PRN back pain #100 10/03/22 (Voltaren Arthritis Pain) grams sennosides 8.6 mg-docusate sodium 1 tab PO QAM #30 tabs 10/03/22 50 mg tablet (Senokot-S) furosemide 20 mg tablet 20 mg PO QAM #30 tabs 07/22/23 Results & Data (ED) Vital Signs Vital Signs - 24 hr 09/19/23 19:37 09/19/23 21:22 09/19/23 22:00 Temperature 36.8 C Temperature Source Oral Pulse Rate Pulse Rate [Apical] 62 61 60 Respiratory Rate 16 16 18 Respiratory Effort / Characteristics Non-Labored Spontaneous Respiratory Depth Normal Respiratory Pattern Blood Pressure [Left Arm] 175/65 H 155/68 H 216/66 H Blood Pressure Mean [Left Arm] 101 97 116 Blood Pressure Position [Left Arm] Lying Pulse Oximetry 98 97 98 Pulse Oximetry [Index Finger] Oxygen Delivery Method Nasal Cannula Room Air Nasal Cannula Oxygen Delivery Method [Index Finger] Oxygen Flow Rate 2 2 Oxygen Flow Rate [Index Finger] EWS Level of Consciousness - Last Result EWS Temperature - Last Result EWS Respiratory Rate - Last Result EWS Oxygen Saturation - Last Result EWS Oxygen in Use - Last Result EWS Lactate - Last Result EWS Score EWS Clinical Risk 09/19/23 22:00 09/19/23 22:00 09/19/23 22:09 Temperature Temperature Source Pulse Rate Pulse Rate [Apical] Respiratory Rate Respiratory Effort / Characteristics Non-Labored Spontaneous SOB on Exertion Respiratory Depth Respiratory Pattern Blood Pressure [Left Arm] Blood Pressure Mean [Left Arm] Blood Pressure Position [Left Arm] Pulse Oximetry Pulse Oximetry [Index Finger] 98 Oxygen Delivery Method Nasal Cannula Oxygen Delivery Method [Index Finger] Nasal Cannula Oxygen Flow Rate 2 Oxygen Flow Rate [Index Finger] 2 EWS Level of Consciousness - Last Result Spontaneously Alert EWS Temperature - Last Result 36.8 EWS Respiratory Rate - Last Result 16 EWS Oxygen Saturation - Last Result 96 EWS Oxygen in Use - Last Result Yes EWS Lactate - Last Result 0.7 EWS Score 0 EWS Clinical Risk Low Risk 09/19/23 22:14 09/19/23 23:07 09/20/23 00:00 Temperature Temperature Source Pulse Rate 58 L 62 Pulse Rate [Apical] 63 Respiratory Rate 16 Respiratory Effort / Characteristics Non-Labored Spontaneous Respiratory Depth Respiratory Pattern Blood Pressure [Left Arm] Blood Pressure Mean [Left Arm] Blood Pressure Position [Left Arm] Pulse Oximetry 96 Pulse Oximetry [Index Finger] Oxygen Delivery Method Nasal Cannula Oxygen Delivery Method [Index Finger] Oxygen Flow Rate 2 Oxygen Flow Rate [Index Finger] EWS Level of Consciousness - Last Result EWS Temperature - Last Result EWS Respiratory Rate - Last Result EWS Oxygen Saturation - Last Result EWS Oxygen in Use - Last Result EWS Lactate - Last Result EWS Score EWS Clinical Risk 09/20/23 04:07 09/20/23 04:08 09/20/23 06:38 Temperature 36.6 C 36.4 C L Temperature Source Oral Oral Pulse Rate Pulse Rate [Apical] 71 58 L Respiratory Rate 18 18 Respiratory Effort / Characteristics Respiratory Depth Respiratory Pattern Blood Pressure [Left Arm] 151/61 H 147/62 H Blood Pressure Mean [Left Arm] 91 90 Blood Pressure Position [Left Arm] Pulse Oximetry 97 95 Pulse Oximetry [Index Finger] Oxygen Delivery Method Nasal Cannula Nasal Cannula Oxygen Delivery Method [Index Finger] Oxygen Flow Rate 2 2 Oxygen Flow Rate [Index Finger] EWS Level of Consciousness - Last Result Spontaneously Alert EWS Temperature - Last Result 36.6 EWS Respiratory Rate - Last Result 18 EWS Oxygen Saturation - Last Result 97 EWS Oxygen in Use - Last Result Yes EWS Lactate - Last Result 0.7 EWS Score 0 EWS Clinical Risk Low Risk 09/20/23 06:39 09/20/23 07:23 09/20/23 07:47 Temperature Temperature Source Pulse Rate 54 L Pulse Rate [Apical] 59 L Respiratory Rate 18 Respiratory Effort / Characteristics Spontaneous Respiratory Depth Respiratory Pattern Blood Pressure [Left Arm] Blood Pressure Mean [Left Arm] Blood Pressure Position [Left Arm] Pulse Oximetry 95 Pulse Oximetry [Index Finger] Oxygen Delivery Method Nasal Cannula Oxygen Delivery Method [Index Finger] Oxygen Flow Rate 3 Oxygen Flow Rate [Index Finger] EWS Level of Consciousness - Last Result Spontaneously Alert EWS Temperature - Last Result 36.4 EWS Respiratory Rate - Last Result 18 EWS Oxygen Saturation - Last Result 95 EWS Oxygen in Use - Last Result Yes EWS Lactate - Last Result 0.7 EWS Score 1 EWS Clinical Risk Low Risk 09/20/23 08:08 09/20/23 11:37 Temperature 36.6 C Temperature Source Oral Pulse Rate Pulse Rate [Apical] 58 L Respiratory Rate 17 Respiratory Effort / Characteristics Non-Labored Spontaneous Respiratory Depth Normal Respiratory Pattern Regular Blood Pressure [Left Arm] 116/57 L Blood Pressure Mean [Left Arm] 76 Blood Pressure Position [Left Arm] Pulse Oximetry 92 Pulse Oximetry [Index Finger] Oxygen Delivery Method Nasal Cannula Nasal Cannula Oxygen Delivery Method [Index Finger] Oxygen Flow Rate 2 2 Oxygen Flow Rate [Index Finger] EWS Level of Consciousness - Last Result EWS Temperature - Last Result EWS Respiratory Rate - Last Result EWS Oxygen Saturation - Last Result EWS Oxygen in Use - Last Result EWS Lactate - Last Result EWS Score EWS Clinical Risk Laboratory Data 09/20/23 06:09 09/20/23 06:09 Lab Results 09/19/23 09/19/23 09/19/23 Range/Units 10:45 11:41 12:54 WBC 5.53 (4.8-10.8) K/ul RBC 3.15 L (4.20-5.40) M/uL Hgb 8.9 L (12.0-16.0) g/dl Hct 28.2 L (37.0-47.0) % MCV 89.5 (80.0-100.0) fL MCH 28.3 (25.0-34.0) pg MCHC 31.6 L (32.0-36.0) g/dL RDW Std Deviation 49.0 H (36.4-46.3) fL RDW Coeff of Chuy 14.9 H (11.5-14.5) % Plt Count 170 (130-400) K/uL MPV 9.7 (9.4-12.4) fL Immature Gran % (Auto) 0.4 % Neut % (Auto) 73.0 % Lymph % (Auto) 12.8 % Castro % (Auto) 13.6 % Eos % (Auto) 0.2 % Baso % (Auto) 0.0 % Neut # (Auto) 4.04 (1.40-6.50) K/uL Lymph # (Auto) 0.71 L (1.20-3.40) K/uL Castro # (Auto) 0.75 H (0.11-0.59) K/uL Eos # (Auto) 0.01 (0.00-0.50) K/uL Baso # (Auto) 0.00 (0.00-0.20) K/uL Immature Gran # (Auto) 0.02 (0.01-0.20) K/uL Sodium 138 (136-145) mmol/L Potassium 4.6 (3.5-5.1) mmol/L Chloride 103 (98-107) mmol/L Carbon Dioxide 31 (21-32) mmol/L Anion Gap 4 (3-11) BUN 37 H (6-23) mg/dl Creatinine 1.98 H (0.6-1.2) mg/dl Est Cr Clr Drug Dosing 20.4 ml/min Est GFR ( Amer) 27.2 ml/min Est GFR (Non-Af Amer) 23.4 ml/min BUN/Creatinine Ratio 18.7 (10-20) Glucose 130 H (70-99(Fasting)) mg/dl Lactate 0.7 (0.4-2.0) mmol/L Calcium 8.2 L (8.6-10.3) mg/dl Magnesium (1.7-2.4) mg/dl Iron (35-150) mcg/dl TIBC (250-450) mcg/dl Unsaturated IBC (155-355) mcg/dl Transferrin % Sat (15-50) % Total Bilirubin 0.2 (0.2-1.0) mg/dl AST 36 (13-39) U/L ALT 14 (7-52) U/L Alkaline Phosphatase 78 (34-104) U/L Troponin I High Sens 59.3 H* (0-14) pg/ml Total Protein 6.7 (6.0-8.3) gm/dl Albumin 3.7 (3.4-5.0) gm/dl Globulin 3.0 (2.5-4.0) gm/dl Albumin/Globulin Ratio 1.2 (0.9-2) Procalcitonin 0.17 (0-0.5) ng/ml Adenovirus (PCR) Not Detected (NotDetected) B. pertussis DNA (PCR) Not Detected (NotDetected) B.parapertussis DNA PCR Not Detected (NotDetected) C. pneumoniae DNA (PCR) Not Detected (NotDetected) Coronavirus OC43 (PCR) Not Detected (NotDetected) Coronavirus HKU1 (PCR) Not Detected (NotDetected) Coronavirus 229E (PCR) Not Detected (NotDetected) SARS-CoV-2 (PCR) DETECTED A (NotDetected) Coronavirus NL63 (PCR) Not Detected (NotDetected) Human Metapneumovir PCR Not Detected (NotDetected) Influenza Type A (PCR) Not Detected (NotDetected) Influenza Type B (PCR) Not Detected (NotDetected) M. pneumoniae (PCR) Not Detected (NotDetected) Parainfluenza 1 (PCR) Not Detected (NotDetected) Parainfluenza 2 (PCR) Not Detected (NotDetected) Parainfluenza 3 (PCR) Not Detected (NotDetected) Parainfluenza 4 (PCR) Not Detected (NotDetected) RSV (PCR) Not Detected (NotDetected) Entero/Rhino (PCR) Not Detected (NotDetected) 09/19/23 09/19/23 09/20/23 Range/Units 13:46 21:30 06:09 WBC 2.97 L (4.8-10.8) K/ul RBC 2.93 L (4.20-5.40) M/uL Hgb 8.3 L (12.0-16.0) g/dl Hct 26.0 L (37.0-47.0) % MCV 88.7 (80.0-100.0) fL MCH 28.3 (25.0-34.0) pg MCHC 31.9 L (32.0-36.0) g/dL RDW Std Deviation 46.9 H (36.4-46.3) fL RDW Coeff of Chuy 14.5 (11.5-14.5) % Plt Count 162 (130-400) K/uL MPV 9.8 (9.4-12.4) fL Immature Gran % (Auto) 0.3 % Neut % (Auto) 86.2 % Lymph % (Auto) 9.8 % Castro % (Auto) 3.7 % Eos % (Auto) 0.0 % Baso % (Auto) 0.0 % Neut # (Auto) 2.56 (1.40-6.50) K/uL Lymph # (Auto) 0.29 L (1.20-3.40) K/uL Castro # (Auto) 0.11 (0.11-0.59) K/uL Eos # (Auto) 0.00 (0.00-0.50) K/uL Baso # (Auto) 0.00 (0.00-0.20) K/uL Immature Gran # (Auto) 0.01 (0.01-0.20) K/uL Sodium 139 (136-145) mmol/L Potassium 4.7 (3.5-5.1) mmol/L Chloride 104 (98-107) mmol/L Carbon Dioxide 28 (21-32) mmol/L Anion Gap 7 (3-11) BUN 37 H (6-23) mg/dl Creatinine 1.99 H (0.6-1.2) mg/dl Est Cr Clr Drug Dosing 20.9 ml/min Est GFR ( Amer) 27.0 ml/min Est GFR (Non-Af Amer) 23.3 ml/min BUN/Creatinine Ratio 18.6 (10-20) Glucose 173 H (70-99(Fasting)) mg/dl Lactate (0.4-2.0) mmol/L Calcium 8.1 L (8.6-10.3) mg/dl Magnesium 1.6 L (1.7-2.4) mg/dl Iron 17 L (35-150) mcg/dl TIBC 198 L (250-450) mcg/dl Unsaturated IBC 181 (155-355) mcg/dl Transferrin % Sat 9 L (15-50) % Total Bilirubin 0.2 (0.2-1.0) mg/dl AST 26 (13-39) U/L ALT 13 (7-52) U/L Alkaline Phosphatase 68 (34-104) U/L Troponin I High Sens 50.9 H* 37.7 H D 31.0 H (0-14) pg/ml Total Protein 6.2 (6.0-8.3) gm/dl Albumin 3.4 (3.4-5.0) gm/dl Globulin 2.8 (2.5-4.0) gm/dl Albumin/Globulin Ratio 1.2 (0.9-2) Procalcitonin (0-0.5) ng/ml Adenovirus (PCR) (NotDetected) B. pertussis DNA (PCR) (NotDetected) B.parapertussis DNA PCR (NotDetected) C. pneumoniae DNA (PCR) (NotDetected) Coronavirus OC43 (PCR) (NotDetected) Coronavirus HKU1 (PCR) (NotDetected) Coronavirus 229E (PCR) (NotDetected) SARS-CoV-2 (PCR) (NotDetected) Coronavirus NL63 (PCR) (NotDetected) Human Metapneumovir PCR (NotDetected) Influenza Type A (PCR) (NotDetected) Influenza Type B (PCR) (NotDetected) M. pneumoniae (PCR) (NotDetected) Parainfluenza 1 (PCR) (NotDetected) Parainfluenza 2 (PCR) (NotDetected) Parainfluenza 3 (PCR) (NotDetected) Parainfluenza 4 (PCR) (NotDetected) RSV (PCR) (NotDetected) Entero/Rhino (PCR) (NotDetected) Administered Medications Albuterol (Albut/Ipratrop 3mg/0.5mg Neb 3 Ml Vial) 3 ml NEB Q6R [facility]AS; Protocol Stop: 10/19/23 22:08 Last Admin: 09/20/23 13:11 Dose: 3 ml Documented By: Admin: 09/20/23 07:23 Dose: 3 ml Documented By: Admin: 09/19/23 23:10 Dose: Not Given Documented By: Admin: 09/19/23 23:03 Dose: 3 ml Documented By: DEV Alprazolam (Alprazolam 0.25 Mg Tablet) 0.25 mg PO BID [facility] Stop: 10/19/23 22:08 Last Admin: 09/20/23 08:17 Dose: 0.25 mg Documented By: Admin: 09/19/23 23:45 Dose: 0.25 mg Documented By: SUNSHINE Aspirin (Aspirin 81 Mg Ectab) 81 mg PO DAILY [facility] Stop: 10/20/23 08:59 Last Admin: 09/20/23 08:19 Dose: 81 mg Documented By: JEMIMA Clonidine HCl (Clonidine Hcl 0.1 Mg Tab) 0.1 mg PO BID [facility] Stop: 10/19/23 22:08 Last Admin: 09/20/23 08:17 Dose: 0.1 mg Documented By: Admin: 09/19/23 23:45 Dose: 0.1 mg Documented By: SUNSHINE Escitalopram Oxalate (Escitalopram Oxalate 10 Mg Tab) 5 mg PO DAILY [facility] Stop: 10/20/23 08:59 Last Admin: 09/20/23 08:18 Dose: 5 mg Documented By: JEMIMA Felodipine (Felodipine 5 Mg Tabcr) 10 mg PO HS [facility] Stop: 10/19/23 22:08 Last Admin: 09/19/23 23:48 Dose: 10 mg Documented By: SUNSHINE Fentanyl (Fentanyl 12 Mcg/Hr Tdsy) 1 patch TD Q72H [facility] Stop: 10/04/23 00:29 Last Admin: 09/20/23 00:37 Dose: 1 patch Documented By: SUNSHINE Ferrous Sulfate (Ferrous Sulfate 325 Mg Tab) 325 mg PO DAILY [facility] Stop: 10/20/23 08:59 Last Admin: 09/20/23 08:18 Dose: 325 mg Documented By: JEMIMA Fluticasone Propionate (Fluticasone Propionate Na Spr 16 Gm Btl) 2 sprays NA Q12 [facility] Stop: 10/19/23 22:08 Last Admin: 09/20/23 08:17 Dose: 2 sprays Documented By: Admin: 09/19/23 23:47 Dose: 2 sprays Documented By: SUNSHINE Furosemide (Furosemide 20 Mg Tab) 20 mg PO QAM [facility] Stop: 10/20/23 08:59 Last Admin: 09/20/23 08:18 Dose: 20 mg Documented By: JEMIMA Guaifenesin (Guaifenesin 600 Mg Tabcr) 1,200 mg PO Q12 [facility] Stop: 10/19/23 22:08 Last Admin: 09/20/23 08:19 Dose: 1,200 mg Documented By: Admin: 09/19/23 23:46 Dose: 1,200 mg Documented By: SUNSHINE Heparin Sodium (Porcine) (Heparin Sod 5,000 Unit/0.5 Ml Vial) 5,000 units SQ Q8 [facility] Stop: 10/19/23 22:08 Last Admin: 09/20/23 16:08 Dose: 5,000 units Documented By: Admin: 09/20/23 06:10 Dose: 5,000 units Documented By: Admin: 09/19/23 23:47 Dose: 5,000 units Documented By: SUNSHINE Hydralazine HCl (Hydralazine Tab 50 Mg Tab) 100 mg PO BID [facility] Stop: 10/19/23 22:08 Last Admin: 09/20/23 08:19 Dose: 100 mg Documented By: Admin: 09/19/23 23:48 Dose: 100 mg Documented By: SUNSHINE Iron Sucrose 300 mg/ Sodium (Chloride) 265 mls @ 176.667 mls/hr IV DAILY [facility]; Protocol Stop: 09/22/23 10:29 Last Admin: 09/20/23 16:09 Dose: 176.7 mls/hr Documented By: JEMIMA Ceftriaxone Sodium (Rocephin) 2,000 mg in 50 mls @ 100 mls/hr IV Q24H [facility] Stop: 09/25/23 15:29 Last Infusion: 09/20/23 16:58 Dose: Infused Documented By: Admin: 09/20/23 16:08 Dose: 100 mls/hr Documented By: JEMIMA Loratadine (Loratadine 10 Mg Tab) 10 mg PO QAM [facility] Stop: 10/20/23 08:59 Last Admin: 09/20/23 08:19 Dose: 10 mg Documented By: JEMIMA Miscellaneous (Check Fentanyl Patch Placement) 1 each N/A QS [facility] Stop: 10/20/23 00:00 Last Admin: 09/20/23 16:09 Dose: 1 each Documented By: Admin: 09/20/23 08:17 Dose: 1 each Documented By: Admin: 09/20/23 00:16 Dose: Not Given Documented By: SUNSHINE Multivitamins (Multivitamin Tab) 1 tab PO DAILY [facility] Stop: 10/20/23 08:59 Last Admin: 09/20/23 08:18 Dose: 1 tab Documented By: JEMIMA Pantoprazole Sodium (Pantoprazole 40 Mg Tab) 40 mg PO BID [facility] Stop: 10/19/23 22:08 Last Admin: 09/20/23 08:19 Dose: 40 mg Documented By: Admin: 09/19/23 23:49 Dose: 40 mg Documented By: SUNSHINE Phenol (Chloraseptic (Phenol) 1.4% Soln 180 Ml Btl) 2 sprays MT TID PRN PRN Reason: Sore Throat Stop: 10/19/23 22:08 Last Admin: 09/20/23 08:18 Dose: 2 sprays Documented By: JEMIMA Polyethylene Glycol (Polyethylene (Miralax) 17 Gm Pack) 17 gm PO DAILY PRN PRN Reason: Constipation Stop: 10/19/23 22:08 Last Admin: 09/20/23 08:19 Dose: 17 gm Documented By: JEMIMA Prednisone (Prednisone 20 Mg Tab) 20 mg PO QAM [facility] [facility] Stop: 09/25/23 15:19 Last Admin: 09/20/23 16:09 Dose: 20 mg Documented By: JEMIMA Rosuvastatin Calcium (Rosuvastatin Calcium 10 Mg Tab) 10 mg PO HS [facility] Stop: 10/19/23 22:08 Last Admin: 09/19/23 23:49 Dose: 10 mg Documented By: SUNSHINE Senna/Docusate Sodium (Docusate Sodium/Senna 50/8.6mg Tab) 1 tab PO QAM [facility] Stop: 10/20/23 08:59 Last Admin: 09/20/23 08:17 Dose: 1 tab Documented By: JEMIMA Umeclidinium/Vilanterol (Umeclidinium/Vilanterol 62.5/25mcg 7 Puffs/Inhaler) 1 puffs INH DAILY [facility] Stop: 10/20/23 08:59 Last Admin: 09/20/23 08:17 Dose: 1 puffs Documented By: JEMIMA Discontinued Medications Albuterol (Albut/Ipratrop 3mg/0.5mg Neb 3 Ml Vial) 3 ml NEB NOW STA; Protocol Stop: 09/19/23 13:08 Last Admin: 09/19/23 13:12 Dose: 3 ml Documented By: NIVIA Sodium Chloride (Nss) 1,000 mls @ 125 mls/hr IV .Q8H [facility] Stop: 10/19/23 12:44 Last Infusion: 09/20/23 00:09 Dose: Infused Documented By: Admin: 09/19/23 21:08 Dose: 125 mls/hr Documented By: Infusion: 09/19/23 20:59 Dose: Infused Documented By: Admin: 09/19/23 12:59 Dose: 125 mls/hr Documented By: NIVIA Dexamethasone 6 mg/ Syringe 1.5 mls @ 1 mls/min IV DAILY [facility] Stop: 09/29/23 22:08 Last Admin: 09/19/23 23:46 Dose: 1 mls/min Documented By: SUNSHINE Magnesium Sulfate/Dextrose (Magnesium Sulfate / D5w) 1 gm in 100 mls @ 50 mls/hr IV Q2H [facility] Stop: 09/20/23 13:44 Last Infusion: 09/20/23 15:53 Dose: Infused Documented By: Admin: 09/20/23 12:47 Dose: 50 mls/hr Documented By: Infusion: 09/20/23 12:31 Dose: Infused Documented By: Admin: 09/20/23 10:31 Dose: 50 mls/hr Documented By: Infusion: 09/20/23 10:17 Dose: Infused Documented By: Admin: 09/20/23 08:17 Dose: 50 mls/hr Documented By: JEMIMA Lactated Ringer's (Lr) 500 mls @ 999 mls/hr IV .Q31M ONE Stop: 09/20/23 15:49 Last Infusion: 09/20/23 16:58 Dose: Infused Documented By: Admin: 09/20/23 16:08 Dose: 999 mls/hr Documented By: JEMIMA Multi-Ingredient Mouthwash/Gargle (First - Mouthwash Blm 5 Ml Udp) 5 ml PO ONE ONE Stop: 09/19/23 13:18 Last Admin: 09/19/23 13:22 Dose: 5 ml Documented By: NIVIA Phenol (Chloraseptic (Phenol) 1.4% Soln 180 Ml Btl) 2 sprays MT NOW STA Stop: 09/19/23 17:21 Last Admin: 09/19/23 17:45 Dose: 2 sprays Documented By: KARMA Imaging Data Radiologist's Impression: Chest X-Ray 09/19/23 11:50 XR chest 1V portable CLINICAL HISTORY: Dyspnea. COMPARISON STUDY: Chest radiograph and chest CT July 18, 2023. FINDINGS: Lung volumes are normal. There is no pneumothorax or pleural effusion. There is mild cardiomegaly without evidence for pulmonary edema. Minimal right lower lung opacity has significantly improved when compared to prior chest radiograph and chest CT. IMPRESSION: 1. Near complete resolution of right lower lung pneumonia since prior chest radiograph and chest CT. 2. Cardiomegaly without evidence for pulmonary edema. ACT 112: Negative or not required by law. Electronically signed by: Florentin Reina M.D. 09/19/2023 12:41 PM Discharge Plan Visit Data Chief Complaint: Shortness of Breath/Dyspnea Stated Complaint: SOB ED Provider: Bruna Pro Discharge Problem: Acute exacerbation of chronic obstructive pulmonary disease (COPD), COVID-19 Patient Disposition: Admitted As Inpatient Discharge Instructions Interventions: ED Discharge Assessment Last Done: 09/19/23 21:44
[2023-09-19] MEDS: ALBUT/IPRATROP 3MG/0.5MG NEB 3 ML VIAL NEB STA (13:12)
[2023-09-19] MEDS: FIRST - Mouthwash BLM 5 ML UDP PO ONE (13:22)
--- NOTE | 2023-09-19 16:59 | History & Physical Report ---
Date of Service September 19, 2023 Assessment & Plan (1) Chronic respiratory failure: (2) COVID-19: (3) COPD (chronic obstructive pulmonary disease): (4) Hypertensive heart disease with chronic diastolic congestive heart failure: (5) CKD (chronic kidney disease): (6) Weakness: (7) HTN (hypertension): (8) HLD (hyperlipidemia): Plan This is a 78-year-old female who has significant past medical history of chronic hypoxic respiratory failure on 2-3 L of oxygen, COPD, HTN, HLD, CKD-4, gastritis, GERD, IBS, history of E. coli UTI, depression with anxiety, history of tobacco abuse and wheelchair-bound status who presents to ED secondary to SOB x 2 days. Chronic Hypoxic respiratory failure on 2L of O2 COPD - not in acute exacerbation Acute Sars COV2 infection Generalized weakness admit to med tele IV dexamethasone 6mg daily she does not have increased oxygen requirement;therefore no indication for further therapies pulmonary toilet with flutter valve, incentive spirometry, muccinex, duonebs PT/OT and CM to determine Dispo CKD-4 baseline cr 1.9-2 cr stable, avoid nephrotoxic agents Anemia of chronic disease hgb stable 8.9 no s/sx of bleeding obtain anemia panel in a.m. Chronic Diastolic CHF HTN HLD chronic, stable daily weight, heart healthy diet, I&O continue home meds of clonidine, hydralazine, felodipine, lasix, asa, statin Hx of recurrent UTI per reports send from family there was concern about UTI outpt urine culture obtained today, will obtain UA in ED Ambulatory dysfunction wheel chair bound status Chronic B/L Hip congenital deformity Chronic Pain on Chronic Opoids -fentanyl patch and prn oxy pt wheel chair bound to preserve hip usually stands, pivot independently and min assist with adls Depression Anxiety -Continue home lexapro -Continue home xanax bid (also for burning mouth syndrome) DVT ppx: SQ heparin FULL CODE PCP: Dr. Bernard Valenzuela Dispo: admit to med tele, per ED provider family concerned to take pt home with covid dx due to son in law who lives with pt is a transplant pt, pt may benefit from short term rehab stay vs respit care Pt was seen and examined in collaboration with Dr. Ramirez, please see addendum A total of 65 minutes was spent coordinating, documenting, and providing care for this patient excluding time spent in the performance of separately billed services. This included personally viewing all current laboratories and imaging studies, medication reconciliation, outpatient chart review, and discussion with specialists. History of Present Illness Chief Complaint: SOB x 2 days. Primary Care Provider: Bernard Norris MD This is a 78-year-old female who has significant past medical history of chronic hypoxic respiratory failure on 2-3 L of oxygen, COPD, HTN, HLD, CKD-4, gastritis, GERD, IBS, history of E. coli UTI, depression with anxiety, history of tobacco abuse and wheelchair-bound status who presents to ED secondary to SOB x 2 days. She reports sore throat, fever of 101, productive cream-colored cough, generalized malaise and weakness that started last evening. She lives at home with her daughter and son-in-law. She denies sick contacts. She generally feels unwell. She has taken all of her medications today. She states that she always feels cold but denies any sweats. She further denies any lightheade dness, dizziness, chest pain, worsening shortness of breath, orthopnea, PND, nausea, vomiting, abdominal pain, Dysuria, increased urgency or frequency with urination, melena or hematochezia. She feels hungry and is requesting food as she has not ate all day. No family members are at bedside. She is wheel chair bound and can self transfer at baseline. Hx also obtained from ED provider who states she spoke to family and pts son in law is a transplant pt; therefore family does not want to take patient home. ED provider discussed with CM to determine if she would be a respite candidate and she was recommended for admission. In ED pt remained hemodynamically stable. She was not requiring any increased oxygen. CXR was negative for acute abnormality. Resp biorefire + SARS COV2. Further history obtained from paper report that was sent in from daughter. According to documentation patient was weak and fell x 2 to the sitting position. No lucia injury and it was found that patient was not alert as normal and slow to respond. There was also concern about incontinence of urine which was abnormal for patient. She is been increasingly fatigued falling asleep more easily. There was concern about possible UTI and therefore a UA C&S was ordered on 09 17 as an outpatient. Pt last hospitalized in July for acute hypoxic resp failure in setting of PNA and CHF Allergies Allergy/AdvReac Type Severity Reaction Status Date / Time metronidazole [From Flagyl] Allergy Severe SHORTNESS Verified 09/19/23 16:15 OF BREATH amlodipine AdvReac Intermediate left leg Verified 09/19/23 16:15 numbness cefuroxime AdvReac Intermediate Gastrointestinal Verified 09/19/23 16:15 Upset Cephalosporins AdvReac Intermediate Gastrointestinal Verified 09/19/23 16:15 Upset ciprofloxacin AdvReac Intermediate Gastrointestinal Verified 09/19/23 16:15 Upset erythromycin base AdvReac Intermediate Gastrointestinal Verified 09/19/23 16:15 Upset sulfamethoxazole AdvReac Intermediate hyperkalemi Verified 09/19/23 16:15 [From Bactrim] a trimethoprim [From Bactrim] AdvReac Intermediate hyperkalemi Verified 09/19/23 16:15 a Home Medications Medication Instructions Recorded Confirmed Type albuterol sulfate 90 mcg/actuation 2 puff inhalation DIRECTED PRN 12/21/21 09/19/23 History aerosol inhaler Shortness Of Breath alprazolam 0.5 mg tablet (Xanax) 0.25 - 0.5 mg PO BID Anxiety 12/21/21 09/19/23 History loratadine 10 mg tablet (Claritin) 10 mg PO QAM 12/21/21 09/19/23 History pantoprazole 40 mg tablet,delayed 40 mg PO BID 12/21/21 09/19/23 History release (Protonix) aspirin 81 mg tablet,delayed 81 mg PO DAILY 04/01/22 09/19/23 History release escitalopram oxalate 5 mg tablet 5 mg PO DAILY 06/01/22 09/19/23 History ferrous sulfate 325 mg (65 mg 325 mg PO DAILY 06/01/22 09/19/23 History iron) tablet fluticasone propionate 50 2 spray intranasal Q12 09/28/22 09/19/23 History mcg/actuation nasal spray,suspension multivitamin 1 tab PO DAILY 09/28/22 09/19/23 History umeclidinium 62.5 mcg-vilanterol 1 ea inhalation DAILY 09/28/22 09/19/23 History 25 mcg/actuation powdr for inhalation (Anoro Ellipta) diclofenac sodium 1 % topical gel 2 g EXT Q6H PRN back pain #100 10/03/22 09/19/23 Rx (Voltaren Arthritis Pain) grams sennosides 8.6 mg-docusate sodium 1 tab PO QAM #30 tabs 10/03/22 09/19/23 Rx 50 mg tablet (Senokot-S) rosuvastatin 10 mg tablet 10 mg PO HS 03/12/23 09/19/23 History felodipine 10 mg tablet,extended 10 mg PO HS 07/18/23 09/19/23 History release 24 hr furosemide 20 mg tablet 20 mg PO QAM #30 tabs 07/22/23 09/19/23 Rx clonidine HCl 0.1 mg tablet 0.1 mg PO BID 09/19/23 09/19/23 History ergocalciferol (vitamin D2) 1,250 50,000 unit PO WK 09/19/23 09/19/23 History mcg (50,000 unit) capsule fentanyl 12 mcg/hr transdermal 1 patch transdermal Q72H 09/19/23 09/19/23 History patch hydralazine 100 mg tablet 100 mg PO BID 09/19/23 09/19/23 History oxycodone 5 mg tablet 5 mg PO Q8H PRN moderate pain 4-10 09/19/23 09/19/23 History Past Med/Surg History Problem List COVID-19 (Acute) Acute exacerbation of chronic obstructive pulmonary disease (COPD) (Acute) Elevated troponin I level (Acute) Acute alteration in mental status (Acute) Pneumonia (Acute) NANCY (acute kidney injury) (Acute) Respiratory failure (Acute) Hypertensive heart disease with chronic diastolic congestive heart failure Acute heart failure with preserved ejection fraction (HFpEF) COPD exacerbation Acute on chronic respiratory failure with hypoxia and hypercapnia Elevated troponin (Acute) COPD (chronic obstructive pulmonary disease) (Acute) Acute UTI (Acute) CKD (chronic kidney disease) (Acute) Elevated troponin (Acute) Acute right flank pain (Acute) Chronic respiratory failure UTI (urinary tract infection) Epigastric abdominal pain (Acute) Pancreas cyst (Acute) CKD (chronic kidney disease) (Acute) Frequent falls (Acute) Weakness Kidney stone Hypomagnesemia (Acute) Hydronephrosis concurrent with and due to calculi of kidney and ureter (Acute) Hypertensive urgency Anemia Elevated troponin Encounter for pre-operative examination NANCY (acute kidney injury) Abdominal pain 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 COPD (chronic obstructive pulmonary disease) with chronic respiratory failure per discharge summary records 01/27/22 HLD (hyperlipidemia) HTN (hypertension) (Acute) Fracture of right hip hx Medical History CKD (chronic kidney disease) stage 3, GFR 30-59 ml/min History of blood transfusion 01/08 GERD (gastroesophageal reflux disease) On home oxygen therapy 2lpm via n/c PRN Kidney stones Pancreatic cyst monitoring Congenital hip deformity bilateral Chronic pain Chronic headaches Migraine Rhabdomyolysis pt's family denies Surgical History History of esophagogastroduodenoscopy (EGD) History of colonoscopy H/O knee surgery Left wide osteotomy for extra cartilidge History of total hip arthroplasty right History of hip surgery r/t congenital hip deformity as a young child. Hx of hernia repair History of removal of ovarian cyst Hx of hysterectomy Hx of appendectomy Family History Mother Coronary heart disease Father Coronary heart disease Brother Diabetes Brother Coronary heart disease Other Heart disease Hypertension No family history of adverse response to anesthesia Social History Smoking Status: Former smoker Tobacco Type: Cigarettes Cigarettes Per Day: quit 3 years ago; Second Hand Exposure: No; Do You Dip or Chew Tobacco: No; Hx Alcohol Use: No Hx Substance Use: No Preferred Language: Marshallese Communication Ability: Effective Visual Impairment: No Limitations Enterprise Resource Planning Consultant Required: No Beliefs That Will Affect Care: None marital status: / Current Living Situation: Other Current Living Situation Comment: daughter How many Children do You have: 2 Feels Safe at Home: Yes Assistive Devices: Hospital Bed, Oxygen - Continuous, Stair Lift and Wheelchair Review of Systems Review of Systems: All systems reviewed & are unremarkable except as noted in HPI & below Physical Exam Physical Exam: Constitutional: Elderly, F, vitals as above, NAD, sitting up in bed, pleasant, conversing easily Head: Normocephalic, Atraumatic Eyes: PERRL, conjunctivae normal, anicteric sclerae ENMT: external ear and nose normal, oropharynx normal Neck: trachea midline, no thyromegaly normal visual inspection Respiratory: normal respiratory effort, lungs clear to auscultation with b/l upper lobe rhonchi, scant RLL exp wheeze otherwise no rales/rhonchi. Normal insp/exp effort, no accessory muscle use, ON 3L of O2 via NC Cardiovascular: RRR, no murmur, no edema Vessels: no JVD or carotid bruit Chest: normal inspection of chest Abdomen: normal bowel sounds, soft, nontender, no hepatosplenomegaly Musculoskeletal: no cyanosis or clubbing, AROM x 4 Skin: no rashes, warm and dry normal turgor Neurologic: no face palsy, no dysarthria CN's II-XI intact bilaterally and moves all extremities Psychiatric: A+Ox3, euthymic affect : deferred Results & Data Results & Data Vital Signs (Past 12 Hours) Vital Signs Temp Pulse Pulse Resp BP BP Pulse Ox 09/19/23 16:06 59 L 18 159/47 H 98 09/19/23 14:14 60 20 121/56 L 99 09/19/23 12:04 57 L 09/19/23 11:50 62 16 96 09/19/23 11:44 96 09/19/23 11:44 37 C 62 16 167/70 H 96 O2 Del Method O2 Flow Rate 09/19/23 16:06 Nasal Cannula 3 09/19/23 14:14 Nasal Cannula 2 09/19/23 12:04 09/19/23 11:50 Nasal Cannula 2 09/19/23 11:44 Nasal Cannula 2 09/19/23 11:44 Nasal Cannula 2 Laboratory Results I have independently reviewed and interpreted patient's admitting labs including CBC, CMP, lactate, procal, biofire + Sarscov2, troponin. Diagnostic Findings Chest X-Ray 09/19/23 11:50 XR chest 1V portable CLINICAL HISTORY: Dyspnea. COMPARISON STUDY: Chest radiograph and chest CT July 18, 2023. FINDINGS: Lung volumes are normal. There is no pneumothorax or pleural effusion. There is mild cardiomegaly without evidence for pulmonary edema. Minimal right lower lung opacity has significantly improved when compared to prior chest radiograph and chest CT. IMPRESSION: 1. Near complete resolution of right lower lung pneumonia since prior chest radiograph and chest CT. 2. Cardiomegaly without evidence for pulmonary edema. ACT 112: Negative or not required by law. Electronically signed by: Florentin Reina M.D. 09/19/2023 12:41 PM Medications Administered Medication List Sodium Chloride (Nss) 1,000 mls @ 125 mls/hr IV .Q8H [facility] Stop: 10/19/23 12:44 Last Admin: 09/19/23 12:59 Dose: 125 mls/hr Documented By: NIVIA Discontinued Medications Albuterol (Albut/Ipratrop 3mg/0.5mg Neb 3 Ml Vial) 3 ml NEB NOW STA; Protocol Stop: 09/19/23 13:08 Last Admin: 09/19/23 13:12 Dose: 3 ml Documented By: NIVIA Multi-Ingredient Mouthwash/Gargle (First - Mouthwash Blm 5 Ml Udp) 5 ml PO ONE ONE Stop: 09/19/23 13:18 Last Admin: 09/19/23 13:22 Dose: 5 ml Documented By: NIVIA ECG Additional Comments: I have independently reviewed and interpreted patient's admitting EKG which revealed: NSR, 464ms COVID-19 Results Results COVID-19 Adm Lab Results: RBC 3.15 M/uL (4.20-5.40) L 09/19/23 WBC 5.53 K/ul (4.8-10.8) 09/19/23 Hgb 8.9 g/dl (12.0-16.0) L 09/19/23 Hct 28.2 % (37.0-47.0) L 09/19/23 Plt Count 170 K/uL (130-400) 09/19/23 Neutrophils (%) (Auto) 73.0 % 09/19/23 Lymphocytes (%) (Auto) 12.8 % 09/19/23 Monocytes # (Auto) 0.75 K/uL (0.11-0.59) H 09/19/23 Eosinophils # (Auto) 0.01 K/uL (0.00-0.50) 09/19/23 Immature Granulocyte % (Auto) 0.4 % 09/19/23 Neutrophils # (Auto) 4.04 K/uL (1.40-6.50) 09/19/23 Lymphocytes # (Auto) 0.71 K/uL (1.20-3.40) L 09/19/23 Monocytes # (Auto) 0.75 K/uL (0.11-0.59) H 09/19/23 Eosinophils # (Auto) 0.01 K/uL (0.00-0.50) 09/19/23 Basophils # (Auto) 0.00 K/uL (0.00-0.20) 09/19/23 Immature Granulocyte # (Auto) 0.02 K/uL (0.01-0.20) 4 Na 138 mmol/L (136-145) 09/19/23 K 4.6 mmol/L (3.5-5.1) 09/19/23 Cl 103 mmol/L (98-107) 09/19/23 CO2 31 mmol/L (21-32) 09/19/23 Anion Gap 4 (3-11) 09/19/23 BUN 37 mg/dl (6-23) H 09/19/23 Creatinine 1.98 mg/dl (0.6-1.2) H 09/19/23 BUN/Creatinine Ratio 18.7 (10-20) 09/19/23 Glucose Level 130 mg/dl (70-99(Fasting)) H 09/19/23 Ca 8.2 mg/dl (8.6-10.3) L 09/19/23 Total Bilirubin 0.2 mg/dl (0.2-1.0) 09/19/23 AST/SGOT 36 U/L (13-39) 09/19/23 ALT/SGPT 14 U/L (7-52) 09/19/23 Alkaline Phosphatase 78 U/L (34-104) 09/19/23 Total Protein 6.7 gm/dl (6.0-8.3) 09/19/23 Albumin 3.7 gm/dl (3.4-5.0) 09/19/23 Globulin 3.0 gm/dl (2.5-4.0) 09/19/23 Albumin/Globulin Ratio 1.2 (0.9-2) 09/19/23 Procalcitonin 0.17 ng/ml (0-0.5) 09/19/23 Adenovirus (PCR) Not Detected (NotDetected) 09/19/23 B. parapertussis DNA (PCR) Not Detected (NotDetected) 05/13 B. pertussis DNA (PCR) Not Detected (NotDetected) 09/19/23 C. pneumoniae DNA (PCR) Not Detected (NotDetected) 4 Coronavirus Type OC43 (PCR) Not Detected (NotDetected) 05/13 Coronavirus Type HKU1 (PCR) Not Detected (NotDetected) 05/13 Coronavirus Type 229E (PCR) Not Detected (NotDetected) 05/13 COVID-19 PCR DETECTED (NotDetected) A 09/19/23 Coronavirus Type NL63 (PCR) Not Detected (NotDetected) 05/13 Human Metapneumovirus (PCR) Not Detected (NotDetected) 05/13 Influenza Virus Type A (PCR) Not Detected (NotDetected) Influenza Virus Type B (PCR) Not Detected (NotDetected) M. pneumoniae (PCR) Not Detected (NotDetected) 09/19/23 Parainfluenza Type 1 (PCR) Not Detected (NotDetected) 05/13 Parainfluenza Type 2 (PCR) Not Detected (NotDetected) 05/13 Parainfluenza Type 3 (PCR) Not Detected (NotDetected) 05/13 Parainfluenza Type 4 (PCR) Not Detected (NotDetected) 05/13 RSV (PCR) Not Detected (NotDetected) 09/19/23 Enterovirus/Rhinovirus (PCR) Not Detected (NotDetected) Chest X-Ray 09/19/23 Code Status & VTE Plan Code Status FULL CODE Supervising Physician Co-Signing Physician Notes I have reviewed the advanced practitioner's documentation on the date of service referenced in note, and I agree with, and take responsibility for the plan of care. Pt seen at bedside in the ED. I have spent a total of 21 minutes coordinating, documenting and providing care for the patient excluding time spent in the performance of separately billed services or time spent by another provider/QHP. (5) CKD (chronic kidney disease) Chronic kidney disease stage: unspecified stage Qualified Code(s): N18.9 - Chronic kidney disease, unspecified
[2023-09-19] MEDS: CHLORASEPTIC (PHENOL) 1.4% SOLN 180 ML BTL MT STA (17:45)
[2023-09-19] MEDS ORDERED: ONDANSETRON INJ 2 MG/ML 2 ML VIAL IV PRN (22:09)
[2023-09-19] MEDS ORDERED: MAGNESIUM HYDROXIDE SUSP 30 ML UDC PO PRN (22:09)
[2023-09-19] MEDS ORDERED: ALUMINUM/MAGNESIUM SUSP 30 ML UDC PO PRN (22:09)
[2023-09-19] MEDS: ALBUT/IPRATROP 3MG/0.5MG NEB 3 ML VIAL NEB SCH (23:03)
[2023-09-19] MEDS: cloNIDine HCL 0.1 MG TAB PO SCH (23:45)
[2023-09-19] MEDS: ALPRAZolam 0.25 MG TABLET PO SCH (23:45)
[2023-09-19] MEDS: dexAMETHasone 6 MG in SYRINGE 0 ML IV SCH (23:46)
[2023-09-19] MEDS: guaiFENesin 600 MG TABCR PO SCH (23:46)
[2023-09-19] MEDS: FLUTICASONE PROPIONATE NA SPR 16 GM BTL SCH (23:47)
[2023-09-19] MEDS: HEPARIN SOD 5,000 UNIT/0.5 ML VIAL SQ SCH (23:47)
[2023-09-19] MEDS: hydrALAZINE TAB 50 MG TAB PO SCH (23:48)
[2023-09-19] MEDS: FELODIPINE 5 MG TABCR PO SCH (23:48)
[2023-09-19] MEDS: ROSUVASTATIN CALCIUM 10 MG TAB PO SCH (23:49)
[2023-09-19] MEDS: PANTOprazole 40 MG TAB PO SCH (23:49)
[2023-09-20 00:11] LABS: Appearance Urine Clear (Clear); Bacteria Urine Automated 4+ (None Seen); Bilirubin Urine Negative (Negative); Blood Urine Negative (Negative); Cast Urine Automated 0-2 /lpf (0-2); Color Urine Yellow; Epithelial Cell Urine Auto 0-2 /hpf (0-2); Glucose Urine UA Negative (Negative); Ketones Urine Negative (Negative); Leukocyte Esterase Urine Negative (Negative); Nitrite Urine Positive (Negative); Protein Urine 2+ (Negative); RBC Urine Automated 0-2 /hpf (0-2); Specific Gravity Urine 1.012 (1.000-1.030); Urobilinogen Urine Negative (Negative)
[2023-09-20] MEDS: CHECK fentaNYL PATCH PLACEMENT SCH (00:16)
[2023-09-20] MEDS: fentaNYL 12 MCG/HR TDSY TD SCH (00:37)
[2023-09-20 06:36] LABS: Hemoglobin 8.3 g/dl (12.0-16.0); Immature Granulocytes # (auto) 0.01 K/uL (0.01-0.20); Immature Granulocytes % (auto) 0.3 %; Lymphocytes # (auto) 0.29 K/uL (1.20-3.40); Lymphocytes % (auto) 9.8 %; Mean Corpuscular Hemoglobin 28.3 pg (25.0-34.0); Mean Corpuscular Hgb Conc 31.9 g/dL (32.0-36.0); Mean Corpuscular Volume 88.7 fL (80.0-100.0); Mean Platelet Volume 9.8 fL (9.4-12.4); Monocytes # (auto) 0.11 K/uL (0.11-0.59); Monocytes % (auto) 3.7 %; Neutrophils # (auto) 2.56 K/uL (1.40-6.50); Neutrophils % (auto) 86.2 %; Platelet Count 162 K/uL (130-400); RDW Coefficient of Variation 14.5 % (11.5-14.5); RDW Standard Deviation 46.9 fL (36.4-46.3); Red Blood Count 2.93 M/uL (4.20-5.40); White Blood Count 2.97 K/ul (4.8-10.8)
[2023-09-20 06:56] LABS: Albumin Globulin Ratio 1.2 (0.9-2); Albumin Level 3.4 gm/dl (3.4-5.0); BUN Creatinine Ratio 18.6 (10-20); Bilirubin,Total 0.2 mg/dl (0.2-1.0); Calcium 8.1 mg/dl (8.6-10.3); Creatinine Clr Calc Pharmacy 20.9 ml/min; Est GFR (Non-African American) 23.3 ml/min; Globulin 2.8 gm/dl (2.5-4.0); Magnesium 1.6 mg/dl (1.7-2.4); Potassium 4.7 mmol/L (3.5-5.1); Total Protein 6.2 gm/dl (6.0-8.3)
[2023-09-20] MEDS: MAGNESIUM SULFATE / D5W 1 GM/100 ML BAG IV SCH (08:17)
[2023-09-20] MEDS: DOCUSATE SODIUM/SENNA 50/8.6MG TAB PO SCH (08:17)
[2023-09-20] MEDS: UMECLIDINIUM/VILANTEROL 62.5/25MCG 7 PUFFS/INHALER INH SCH (08:17)
[2023-09-20] MEDS: FUROSEMIDE 20 MG TAB PO SCH (08:18)
[2023-09-20] MEDS: MULTIVITAMIN TAB PO SCH (08:18)
[2023-09-20] MEDS: ESCITALOPRAM OXALATE 10 MG TAB PO SCH (08:18)
[2023-09-20] MEDS: FERROUS SULFATE 325 MG TAB PO SCH (08:18)
[2023-09-20] MEDS: CHLORASEPTIC (PHENOL) 1.4% SOLN 180 ML BTL MT PRN (08:18)
[2023-09-20] MEDS: ASPIRIN 81 MG ECTAB PO SCH (08:19)
[2023-09-20] MEDS: POLYETHYLENE (MIRALAX) 17 GM PACK PO PRN (08:19)
[2023-09-20] MEDS: LORATADINE 10 MG TAB PO SCH (08:19)
[2023-09-20] MEDS ORDERED: fentaNYL 12 MCG/HR TDSY TD SCH (09:00)
--- NOTE | 2023-09-20 15:17 | Hospitalist Progress Note ---
Date of Service September 20, 2023 Assessment & Plan (1) Chronic respiratory failure: (2) COVID-19: (3) COPD (chronic obstructive pulmonary disease): (4) Hypertensive heart disease with chronic diastolic congestive heart failure: (5) CKD (chronic kidney disease): (6) Weakness: (7) HTN (hypertension): (8) HLD (hyperlipidemia): Plan Ms. Dewey is a 78-year-old female who has significant past medical history of chronic hypoxic respiratory failure on 2-3 L of oxygen, COPD, HTN, HLD, CKD-4, gastritis, GERD, IBS, history of E. coli UTI, depression with anxiety, history of tobacco abuse and wheelchair-bound status who is admitted for COVID infection. Patient reports subjective improvement but notes feeling weak Spoke with daughter on phone who notes that patient is newly incontinent of urine. UA with nitrate + and bacteria, no squamous cells, will treat as active cystitis. #Abnormal UA c/f acute cystitis #Urinary Incontinence #Hx of recurrent UTI per reports send from family there was concern about UTI outpt urine culture obtained today, will obtain UA in ED Given urinary incontinence and progressive weakness, will start CTX empirically until UA cx results #Acute Sars COV2 infection #Chronic Hypoxic respiratory failure on 2L of O2 #COPD she does not have increased oxygen requirement;therefore no indication for further therapies pulmonary toilet with flutter valve, incentive spirometry, Mucinex, duonebs PT/OT Plan for centre care #CKD-4 baseline cr 1.9-2.0 cr stable, avoid nephrotoxic agents repeat bmp #Anemia of chronic disease hgb stable 8.9 no s/sx of bleeding obtain anemia panel in a.m. IV venofer #Chronic Heart failure with preserved EF #HTN #HLD chronic, stable daily weight, heart healthy diet, I&O continue home meds of clonidine, hydralazine, felodipine, lasix, asa, statin #Ambulatory dysfunction #Chronic B/L Hip congenital deformity #Chronic Pain on Chronic Opoids -fentanyl patch and prn oxy pt wheel chair bound to preserve hip, usual able to help with transfers and assists usually stands, pivot independently and min assist with adls PT/OT Depression Anxiety -Continue home lexapro -Continue home xanax bid (also for burning mouth syndrome) DVT ppx: SQ heparin FULL CODE PCP: Dr. Bernard Valenzuela Dispo: admit to med tele, per ED provider family concerned to take pt home with covid dx due to son in law who lives with pt is a transplant pt, pt may benefit from short term rehab stay vs respite care Admission and Anticipated Discharge Date Admission Date: September 19, 2023 Subjective Evaluated patient at bedside, reports feeling somewhat improved, denies any chest pain, palpitations or acute symptoms time of exam Physical Exam Constitutional: WD/WN, vitals as above Respiratory: normal respiratory effort, lungs clear to auscultation Cardiovascular: RRR, no murmur, no edema Gastrointestinal (Abdomen): normal bowel sounds, soft, nontender, no hepatosplenomegaly Results & Data Results & Data Vital Signs (Past 12 Hours) Vital Signs Temp Pulse Pulse Resp BP Pulse Ox O2 Del Method 09/20/23 14:16 55 L 09/20/23 13:11 54 L 15 94 Nasal Cannula 09/20/23 11:37 36.6 C 58 L 17 116/57 L 92 Nasal Cannula 09/20/23 08:08 Nasal Cannula 09/20/23 07:47 54 L 09/20/23 07:23 59 L 18 95 Nasal Cannula 09/20/23 06:38 36.4 C L 58 L 18 147/62 H 95 Nasal Cannula 09/20/23 04:07 36.6 C 71 18 151/61 H 97 Nasal Cannula O2 Flow Rate 09/20/23 14:16 09/20/23 13:11 3 09/20/23 11:37 2 09/20/23 08:08 2 09/20/23 07:47 09/20/23 07:23 3 09/20/23 06:38 2 09/20/23 04:07 2 Laboratory Results Short CBC 09/20/23 Range/Units 06:09 WBC 2.97 L (4.8-10.8) K/ul Hgb 8.3 L (12.0-16.0) g/dl Hct 26.0 L (37.0-47.0) % Plt Count 162 (130-400) K/uL BMP 09/20/23 06:09 Sodium 139 Potassium 4.7 Chloride 104 Carbon Dioxide 28 BUN 37 H Creatinine 1.99 H Glucose 173 H Calcium 8.1 L Liver Function 09/20/23 Range/Units 06:09 Total Bilirubin 0.2 (0.2-1.0) mg/dl AST 26 (13-39) U/L ALT 13 (7-52) U/L Alkaline Phosphatase 68 (34-104) U/L Albumin 3.4 (3.4-5.0) gm/dl Urine 09/20/23 Range/Units Unknown Urine Color Yellow Urine Appearance Clear (Clear) Urine pH 6.0 (4.5-7.5) Ur Specific [place] 1.012 (1.000-1.030) Urine Protein 2+ H (Negative) Urine Glucose (UA) Negative (Negative) Medications Administered Home Medications Medication Instructions Recorded Confirmed Last Taken albuterol sulfate 90 mcg/actuation 2 puff inhalation DIRECTED PRN 12/21/21 09/19/23 03/12/23 aerosol inhaler Shortness Of Breath alprazolam 0.5 mg tablet (Xanax) 0.25 - 0.5 mg PO BID Anxiety 12/21/21 09/19/23 03/11/23 loratadine 10 mg tablet (Claritin) 10 mg PO QAM 12/21/21 09/19/23 03/11/23 pantoprazole 40 mg tablet,delayed 40 mg PO BID 12/21/21 09/19/23 03/11/23 release (Protonix) aspirin 81 mg tablet,delayed 81 mg PO DAILY 04/01/22 09/19/23 03/11/23 release escitalopram oxalate 5 mg tablet 5 mg PO DAILY 06/01/22 09/19/23 03/11/23 ferrous sulfate 325 mg (65 mg 325 mg PO DAILY 06/01/22 09/19/23 03/11/23 iron) tablet fluticasone propionate 50 2 spray intranasal Q12 09/28/22 09/19/23 03/12/23 mcg/actuation nasal spray,suspension multivitamin 1 tab PO DAILY 09/28/22 09/19/23 03/11/23 umeclidinium 62.5 mcg-vilanterol 1 ea inhalation DAILY 09/28/22 09/19/23 03/11/23 25 mcg/actuation powdr for inhalation (Anoro Ellipta) diclofenac sodium 1 % topical gel 2 g EXT Q6H PRN back pain #100 10/03/2203/11/23 (Voltaren Arthritis Pain) grams sennosides 8.6 mg-docusate sodium 1 tab PO QAM #30 tabs 10/03/22 09/19/23 03/11/23 50 mg tablet (Senokot-S) rosuvastatin 10 mg tablet 10 mg PO HS 03/12/23 09/19/23 03/11/23 felodipine 10 mg tablet,extended 10 mg PO HS 07/18/23 09/19/23 Unknown release 24 hr furosemide 20 mg tablet 20 mg PO QAM #30 tabs 07/22/23 09/19/23 Unknown clonidine HCl 0.1 mg tablet 0.1 mg PO BID 09/19/23 09/19/23 Unknown ergocalciferol (vitamin D2) 1,250 50,000 unit PO WK 09/19/23 09/19/23 Unknown mcg (50,000 unit) capsule fentanyl 12 mcg/hr transdermal 1 patch transdermal Q72H 09/19/23 09/19/23 Unknown patch hydralazine 100 mg tablet 100 mg PO BID 09/19/23 09/19/23 Unknown oxycodone 5 mg tablet 5 mg PO Q8H PRN moderate pain 4-10 09/19/23 09/19/23 Unknown Active Medications Generic Name Dose Route Start Last Admin Trade Name Freq PRN Reason Stop Dose Admin Albuterol 3 ml 09/19/23 22:09 09/20/23 13:11 Albut/Ipratrop 3mg/0.5mg Neb 3 Ml Vial NEB 10/19/23 22:08 3 ml Q6R SABAS Administration Protocol Alprazolam 0.25 mg 09/19/23 22:09 09/20/23 08:17 Alprazolam 0.25 Mg Tablet PO 10/19/23 22:08 0.25 mg BID SABAS Administration Aspirin 81 mg 09/20/23 09:00 09/20/23 08:19 Aspirin 81 Mg Ectab PO 10/20/23 08:59 81 mg DAILY SABAS Administration Clonidine HCl 0.1 mg 09/19/23 22:09 09/20/23 08:17 Clonidine Hcl 0.1 Mg Tab PO 10/19/23 22:08 0.1 mg BID SABAS Administration Escitalopram Oxalate 5 mg 09/20/23 09:00 09/20/23 08:18 Escitalopram Oxalate 10 Mg Tab PO 10/20/23 08:59 5 mg DAILY SABAS Administration Felodipine 10 mg 09/19/23 22:09 09/19/23 23:48 Felodipine 5 Mg Tabcr PO 10/19/23 22:08 10 mg HS SABAS Administration Fentanyl 1 patch 09/20/23 00:30 09/20/23 00:37 Fentanyl 12 Mcg/Hr Tdsy TD 10/04/23 00:29 1 patch Q72H SABAS Administration Ferrous Sulfate 325 mg 09/20/23 09:00 09/20/23 08:18 Ferrous Sulfate 325 Mg Tab PO 10/20/23 08:59 325 mg DAILY SABAS Administration Fluticasone Propionate 2 sprays 09/19/23 22:09 09/20/23 08:17 Fluticasone Propionate Na Spr 16 Gm Btl NA 10/19/23 22:08 2 sprays Q12 SABAS Administration Furosemide 20 mg 09/20/23 09:00 09/20/23 08:18 Furosemide 20 Mg Tab PO 10/20/23 08:59 20 mg QAM SABAS Administration Guaifenesin 1,200 mg 09/19/23 22:09 09/20/23 08:19 Guaifenesin 600 Mg Tabcr PO 10/19/23 22:08 1,200 mg Q12 SABAS Administration Heparin Sodium (Porcine) 5,000 units 09/19/23 22:09 09/20/23 06:10 Heparin Sod 5,000 Unit/0.5 Ml Vial SQ 10/19/23 22:08 5,000 units Q8 SABAS Administration Hydralazine HCl 100 mg 09/19/23 22:09 09/20/23 08:19 Hydralazine Tab 50 Mg Tab PO 10/19/23 22:08 100 mg BID SABAS Administration Loratadine 10 mg 09/20/23 09:00 09/20/23 08:19 Loratadine 10 Mg Tab PO 10/20/23 08:59 10 mg QAM SABAS Administration Miscellaneous 1 each 09/20/23 00:00 09/20/23 08:17 Check Fentanyl Patch Placement N/A 10/20/23 00:00 1 each QS SABAS Administration Multivitamins 1 tab 09/20/23 09:00 09/20/23 08:18 Multivitamin Tab PO 10/20/23 08:59 1 tab DAILY SABAS Administration Pantoprazole Sodium 40 mg 09/19/23 22:09 09/20/23 08:19 Pantoprazole 40 Mg Tab PO 10/19/23 22:08 40 mg BID SABAS Administration Phenol 2 sprays 09/19/23 22:09 09/20/23 08:18 Chloraseptic (Phenol) 1.4% Soln 180 Ml Btl MT 10/19/23 22:08 2 sprays TID PRN Administration Sore Throat Polyethylene Glycol 17 gm 09/19/23 22:09 09/20/23 08:19 Polyethylene (Miralax) 17 Gm Pack PO 10/19/23 22:08 17 gm DAILY PRN Administration Constipation Rosuvastatin Calcium 10 mg 09/19/23 22:09 09/19/23 23:49 Rosuvastatin Calcium 10 Mg Tab PO 10/19/23 22:08 10 mg HS SABAS Administration Senna/Docusate Sodium 1 tab 09/20/23 09:00 09/20/23 08:17 Docusate Sodium/Senna 50/8.6mg Tab PO 10/20/23 08:59 1 tab QAM SABAS Administration Umeclidinium/Vilanterol 1 puffs 09/20/23 09:00 09/20/23 08:17 Umeclidinium/Vilanterol 62.5/25mcg 7 Puffs/Inhaler INH 10/20/23 08:59 1 puffs DAILY SABAS Administration (5) CKD (chronic kidney disease) Chronic kidney disease stage: unspecified stage Qualified Code(s): N18.9 - Chronic kidney disease, unspecified
[2023-09-20] MEDS: cefTRIAXone SODIUM 2,000 MG/50 ML BAG IV SCH (16:08)
[2023-09-20] MEDS: LACTATED RINGER'S 500 ML IV ONE (16:08)
[2023-09-20] MEDS: predniSONE 20 MG TAB PO SCH (16:09)
[2023-09-20] MEDS: IRON SUCROSE 300 MG in SODIUM CHLORIDE 0.9% 250 ML IV SCH (16:09)
[2023-09-20] MEDS: ACETAMINOPHEN 325 MG TAB PO PRN (21:19)
--- NOTE | 2023-09-20 23:55 | Electrocardiogram Report ---
Test Reason : Blood Pressure : / mmHG Vent. Rate : 062 BPM Atrial Rate : 062 BPM P-R Int : 176 ms QRS Dur : 084 ms QT Int : 458 ms P-R-T Axes : 084 039 061 degrees QTc Int : 464 ms Normal sinus rhythm with sinus arrhythmia Normal ECG When compared with ECG of 18-JUL-2023 20:51, No significant change was found Confirmed by Nuno Schmidt ([id number]) on 09/20/2023 11:55:43 PM Referred By: Bernard Norris Confirmed By:Nuno Schmidt
[2023-09-21 07:08] LABS: Hematocrit (blood only) 23.4 % (37.0-47.0); Hemoglobin 7.6 g/dl (12.0-16.0); Mean Corpuscular Hemoglobin 28.4 pg (25.0-34.0); Mean Corpuscular Hgb Conc 32.5 g/dL (32.0-36.0); Mean Corpuscular Volume 87.3 fL (80.0-100.0); Mean Platelet Volume 9.9 fL (9.4-12.4); Platelet Count 167 K/uL (130-400); RDW Coefficient of Variation 14.4 % (11.5-14.5); RDW Standard Deviation 45.9 fL (36.4-46.3); Red Blood Count 2.68 M/uL (4.20-5.40); White Blood Count 5.63 K/ul (4.8-10.8)
[2023-09-21 07:24] LABS: BUN Creatinine Ratio 24.4 (10-20); Calcium 8.1 mg/dl (8.6-10.3); Creatinine Clr Calc Pharmacy 21.1 ml/min; Est GFR (African American) 27.3 ml/min; Est GFR (Non-African American) 23.6 ml/min; Magnesium 2.3 mg/dl (1.7-2.4); Phosphorus 3.9 mg/dl (2.5-4.9); Potassium 5.7 mmol/L (3.5-5.1)
[2023-09-21] MEDS ORDERED: predniSONE 20 MG TAB PO SCH (09:00)
[2023-09-21] MEDS: SODIUM ZIRCONIUM CYCLOSILICATE 10 GM PACKET PO SCH (09:45)
--- NOTE | 2023-09-21 14:32 | Hospitalist Progress Note ---
Date of Service September 21, 2023 Assessment & Plan (1) Chronic respiratory failure: (2) COVID-19: (3) COPD (chronic obstructive pulmonary disease): (4) Hypertensive heart disease with chronic diastolic congestive heart failure: (5) CKD (chronic kidney disease): (6) Weakness: (7) HTN (hypertension): (8) HLD (hyperlipidemia): Plan Ms. Dewey is a 78-year-old female who has significant past medical history of chronic hypoxic respiratory failure on 2-3 L of oxygen, COPD, HTN, HLD, CKD-4, gastritis, GERD, IBS, history of E. coli UTI, depression with anxiety, history of tobacco abuse and wheelchair-bound status who is admitted for COVID infection. Patient reports subjective improvement but notes feeling weak Spoke with daughter on phone who notes that patient is newly incontinent of urine. UA with nitrate + and bacteria, no squamous cells, will treat as active cystitis. #Acute uncomplicated cystitis #Urinary Incontinence #Hx of recurrent UTI per reports send from family there was concern about UTI outpt urine culture obtained today, will obtain UA in ED UA +GNB Continue CTX #COVID 19, incidental #Chronic Hypoxic respiratory failure on 2L of O2 #COPD she does not have increased oxygen requirement;therefore no indication for further therapies pulmonary toilet with flutter valve, incentive spirometry, Mucinex, duonebs PT/OT Plan for centre care #CKD-4 baseline cr 1.9-2.0 cr stable, avoid nephrotoxic agents repeat bmp #Anemia of chronic disease hgb stable 8.9 no s/sx of bleeding obtain anemia panel in a.m. IV venofer #Chronic Heart failure with preserved EF #HTN #HLD chronic, stable daily weight, heart healthy diet, I&O continue home meds of clonidine, hydralazine, felodipine, lasix, asa, statin #Ambulatory dysfunction #Chronic B/L Hip congenital deformity #Chronic Pain on Chronic Opoids -fentanyl patch and prn oxy pt wheel chair bound to preserve hip, usual able to help with transfers and assists usually stands, pivot independently and min assist with adls PT/OT After discussion with daughter and patient, increased fentanyl 25 patch #Depression #Anxiety -Continue home lexapro -Continue home xanax bid (also for burning mouth syndrome) DVT ppx: SQ heparin FULL CODE PCP: Dr. Bernard Valenzuela Dispo: admit to med tele, per ED provider family concerned to take pt home with covid dx due to son in law who lives with pt is a transplant pt, pt may benefit from short term rehab stay vs respite care Admission and Anticipated Discharge Date Admission Date: September 20, 2023 Subjective NAEO Patient states she feels tired but is "fine" spoke with daughter over phone who notes that patient reports more uncontrolled pain--fentanyl patch recently started and not covering baseline discomfort, agreed to uptitrate Physical Exam Constitutional: WD/WN, vitals as above Respiratory: normal respiratory effort, lungs clear to auscultation (2L NC baseline) Cardiovascular: RRR, no murmur, no edema Gastrointestinal (Abdomen): normal bowel sounds, soft, nontender, no hepatosplenomegaly Results & Data Results & Data Vital Signs (Past 12 Hours) Vital Signs Temp Pulse Pulse Resp BP Pulse Ox O2 Del Method 09/21/23 13:25 50 L 16 95 Nasal Cannula 09/21/23 11:19 36.4 C L 60 18 151/68 H 93 Nasal Cannula 09/21/23 07:54 36.3 C L 60 19 161/54 H 95 Nasal Cannula 09/21/23 07:15 51 L 16 94 Nasal Cannula 09/21/23 07:02 51 L 09/21/23 03:17 36.6 C 61 18 133/56 L 96 Nasal Cannula O2 Flow Rate 09/21/23 13:25 2 09/21/23 11:19 2 09/21/23 07:54 2 09/21/23 07:15 2 09/21/23 07:02 09/21/23 03:17 2 Laboratory Results Short CBC 09/21/23 Range/Units 06:42 WBC 5.63 (4.8-10.8) K/ul Hgb 7.6 L (12.0-16.0) g/dl Hct 23.4 L (37.0-47.0) % Plt Count 167 (130-400) K/uL BMP 09/21/23 06:42 Sodium 134 L Potassium 5.7 H D Chloride 102 Carbon Dioxide 25 BUN 48 H Creatinine 1.97 H Glucose 145 H Calcium 8.1 L Medications Administered Home Medications Medication Instructions Recorded Confirmed Last Taken albuterol sulfate 90 mcg/actuation 2 puff inhalation DIRECTED PRN 12/21/21 09/19/23 03/12/23 aerosol inhaler Shortness Of Breath alprazolam 0.5 mg tablet (Xanax) 0.25 - 0.5 mg PO BID Anxiety 12/21/21 09/19/23 03/11/23 loratadine 10 mg tablet (Claritin) 10 mg PO QAM 12/21/21 09/19/23 03/11/23 pantoprazole 40 mg tablet,delayed 40 mg PO BID 12/21/21 09/19/23 03/11/23 release (Protonix) aspirin 81 mg tablet,delayed 81 mg PO DAILY 04/01/22 09/19/23 03/11/23 release escitalopram oxalate 5 mg tablet 5 mg PO DAILY 06/01/22 09/19/23 03/11/23 ferrous sulfate 325 mg (65 mg 325 mg PO DAILY 06/01/22 09/19/23 03/11/23 iron) tablet fluticasone propionate 50 2 spray intranasal Q12 09/28/22 09/19/23 03/12/23 mcg/actuation nasal spray,suspension multivitamin 1 tab PO DAILY 09/28/22 09/19/23 03/11/23 umeclidinium 62.5 mcg-vilanterol 1 ea inhalation DAILY 09/28/22 09/19/23 03/11/23 25 mcg/actuation powdr for inhalation (Anoro Ellipta) diclofenac sodium 1 % topical gel 2 g EXT Q6H PRN back pain #100 10/03/22 09/19/23 03/11/23 (Voltaren Arthritis Pain) grams sennosides 8.6 mg-docusate sodium 1 tab PO QAM #30 tabs 10/03/22 09/19/23 03/11/23 50 mg tablet (Senokot-S) rosuvastatin 10 mg tablet 10 mg PO HS 03/12/23 09/19/23 03/11/23 felodipine 10 mg tablet,extended 10 mg PO HS 07/18/23 09/19/23 Unknown release 24 hr furosemide 20 mg tablet 20 mg PO QAM #30 tabs 07/22/23 09/19/23 Unknown clonidine HCl 0.1 mg tablet 0.1 mg PO BID 09/19/23 09/19/23 Unknown ergocalciferol (vitamin D2) 1,250 50,000 unit PO WK 09/19/23 09/19/23 Unknown mcg (50,000 unit) capsule fentanyl 12 mcg/hr transdermal 1 patch transdermal Q72H 09/19/23 09/19/23 Unknown patch hydralazine 100 mg tablet 100 mg PO BID 09/19/23 09/19/23 Unknown oxycodone 5 mg tablet 5 mg PO Q8H PRN moderate pain 4-10 09/19/23 09/19/23 Unknown Active Medications Generic Name Dose Route Start Last Admin Trade Name Freq PRN Reason Stop Dose Admin Acetaminophen 650 mg 09/19/23 22:09 09/21/23 04:49 Acetaminophen 325 Mg Tab PO 10/19/23 22:08 650 mg Q4H PRN Administration Pain or Fever Albuterol 3 ml 09/19/23 22:09 09/21/23 13:25 Albut/Ipratrop 3mg/0.5mg Neb 3 Ml Vial NEB 10/19/23 22:08 Not Given Q6R SABAS Protocol Alprazolam 0.25 mg 09/19/23 22:09 09/21/23 07:52 Alprazolam 0.25 Mg Tablet PO 10/19/23 22:08 0.25 mg BID SABAS Administration Aspirin 81 mg 09/20/23 09:00 09/21/23 07:41 Aspirin 81 Mg Ectab PO 10/20/23 08:59 81 mg DAILY SABAS Administration Clonidine HCl 0.1 mg 09/19/23 22:09 09/21/23 07:47 Clonidine Hcl 0.1 Mg Tab PO 10/19/23 22:08 0.1 mg BID SABAS Administration Escitalopram Oxalate 5 mg 09/20/23 09:00 09/21/23 07:40 Escitalopram Oxalate 10 Mg Tab PO 10/20/23 08:59 5 mg DAILY SABAS Administration Felodipine 10 mg 09/19/23 22:09 09/20/23 21:22 Felodipine 5 Mg Tabcr PO 10/19/23 22:08 10 mg HS SABAS Administration Ferrous Sulfate 325 mg 09/20/23 09:00 09/21/23 07:43 Ferrous Sulfate 325 Mg Tab PO 10/20/23 08:59 325 mg DAILY SABAS Administration Fluticasone Propionate 2 sprays 09/19/23 22:09 09/21/23 07:47 Fluticasone Propionate Na Spr 16 Gm Btl NA 10/19/23 22:08 2 sprays Q12 SABAS Administration Furosemide 20 mg 09/20/23 09:00 09/21/23 07:40 Furosemide 20 Mg Tab PO 10/20/23 08:59 20 mg QAM SABAS Administration Guaifenesin 1,200 mg 09/19/23 22:09 09/21/23 07:46 Guaifenesin 600 Mg Tabcr PO 10/19/23 22:08 1,200 mg Q12 SABAS Administration Heparin Sodium (Porcine) 5,000 units 09/19/23 22:09 09/21/23 12:32 Heparin Sod 5,000 Unit/0.5 Ml Vial SQ 10/19/23 22:08 5,000 units Q8 SABAS Administration Hydralazine HCl 100 mg 09/19/23 22:09 09/21/23 07:42 Hydralazine Tab 50 Mg Tab PO 10/19/23 22:08 100 mg BID SABAS Administration Iron Sucrose 300 mg/ Sodium 265 mls @ 176.667 mls/hr 09/20/23 15:30 09/21/23 09:41 Chloride IV 09/22/23 10:29 Infused DAILY SABAS Infusion Protocol Ceftriaxone Sodium 2,000 mg in 50 mls @ 100 mls/hr 09/20/23 15:30 09/20/23 16:58 Rocephin IV 09/25/23 15:29 Infused Q24H SABAS Infusion Loratadine 10 mg 09/20/23 09:00 09/21/23 07:46 Loratadine 10 Mg Tab PO 10/20/23 08:59 10 mg QAM SABAS Administration Miscellaneous 1 each 09/20/23 00:00 09/21/23 07:41 Check Fentanyl Patch Placement N/A 10/20/23 00:00 1 each QS SABAS Administration Multivitamins 1 tab 09/20/23 09:00 09/21/23 07:45 Multivitamin Tab PO 10/20/23 08:59 1 tab DAILY SABAS Administration Pantoprazole Sodium 40 mg 09/19/23 22:09 09/21/23 07:40 Pantoprazole 40 Mg Tab PO 10/19/23 22:08 40 mg BID SABAS Administration Phenol 2 sprays 09/19/23 22:09 09/20/23 08:18 Chloraseptic (Phenol) 1.4% Soln 180 Ml Btl MT 10/19/23 22:08 2 sprays TID PRN Administration Sore Throat Polyethylene Glycol 17 gm 09/19/23 22:09 09/20/23 08:19 Polyethylene (Miralax) 17 Gm Pack PO 10/19/23 22:08 17 gm DAILY PRN Administration Constipation Prednisone 20 mg 09/20/23 15:20 09/21/23 07:48 Prednisone 20 Mg Tab PO 09/25/23 15:19 20 mg QAM SABAS Administration Rosuvastatin Calcium 10 mg 09/19/23 22:09 09/20/23 21:21 Rosuvastatin Calcium 10 Mg Tab PO 10/19/23 22:08 10 mg HS SABAS Administration Senna/Docusate Sodium 1 tab 09/20/23 09:00 09/21/23 07:40 Docusate Sodium/Senna 50/8.6mg Tab PO 10/20/23 08:59 1 tab QAM SABAS Administration Sodium Zirconium Cyclosilicate 10 gm 09/21/23 09:00 09/21/23 12:33 Sodium Zirconium Cyclosilicate 10 Gm Packet PO 09/22/23 21:01 10 gm TID SABAS Administration Umeclidinium/Vilanterol 1 puffs 09/20/23 09:00 09/21/23 07:49 Umeclidinium/Vilanterol 62.5/25mcg 7 Puffs/Inhaler INH 10/20/23 08:59 1 puffs DAILY SABAS Administration (5) CKD (chronic kidney disease) Chronic kidney disease stage: unspecified stage Qualified Code(s): N18.9 - Chronic kidney disease, unspecified
[2023-09-21] MEDS: fentaNYL 25 MCG/HR TDSY TD SCH (15:22)
[2023-09-21] MEDS: ACETAMINOPHEN 1,000 MG/100 ML VIAL IV STA (15:24)
[2023-09-21] MEDS: CHECK fentaNYL PATCH PLACEMENT SCH (15:25)
[2023-09-21 15:47] LABS: BUN Creatinine Ratio 26.4 (10-20); Calcium 8.4 mg/dl (8.6-10.3); Creatinine Clr Calc Pharmacy 22.8 ml/min; Est GFR (African American) 30.1 ml/min; Potassium 4.8 mmol/L (3.5-5.1)
[2023-09-22 05:26] LABS: Hematocrit (blood only) 25.1 % (37.0-47.0); Hemoglobin 7.9 g/dl (12.0-16.0); Mean Corpuscular Hemoglobin 27.7 pg (25.0-34.0); Mean Corpuscular Hgb Conc 31.5 g/dL (32.0-36.0); Mean Corpuscular Volume 88.1 fL (80.0-100.0); Mean Platelet Volume 10.2 fL (9.4-12.4); Platelet Count 170 K/uL (130-400); RDW Coefficient of Variation 14.3 % (11.5-14.5); RDW Standard Deviation 46.2 fL (36.4-46.3); Red Blood Count 2.85 M/uL (4.20-5.40); White Blood Count 5.79 K/ul (4.8-10.8)
[2023-09-22 05:37] LABS: Magnesium 2.1 mg/dl (1.7-2.4); Phosphorus 3.5 mg/dl (2.5-4.9)
[2023-09-22] MEDS: ALBUT/IPRATROP 3MG/0.5MG NEB 3 ML VIAL NEB SCH (07:32)
[2023-09-22] MEDS ORDERED: ALBUT/IPRATROP 3MG/0.5MG NEB 3 ML VIAL NEB PRN (12:00)
--- NOTE | 2023-09-22 14:14 | Hospitalist Progress Note ---
Date of Service September 22, 2023 Assessment & Plan (1) Chronic respiratory failure: (2) COVID-19: (3) COPD (chronic obstructive pulmonary disease): (4) Hypertensive heart disease with chronic diastolic congestive heart failure: (5) CKD (chronic kidney disease): (6) Weakness: (7) HTN (hypertension): (8) HLD (hyperlipidemia): Plan Ms. Dewey is a 78-year-old female who has significant past medical history of chronic hypoxic respiratory failure on 2-3 L of oxygen, COPD, HTN, HLD, CKD-4, gastritis, GERD, IBS, history of E. coli UTI, depression with anxiety, history of tobacco abuse and wheelchair-bound status who is admitted for COVID infection. Patient reports subjective improvement but notes feeling weak Discussion with daughter revealed symptomatic urinary symptoms, there fore on 09/19 CTX started. UA consistent with infection. Culture pending Patient doing much better on exam. More aware and alert. Pain is persistent issue. Patient recently started on fentanyl patch 12.5mcg. Patient's patch increased on 09/20 to 25mcg. Patient reports improvement in pain this am. #Acute uncomplicated cystitis #Urinary Incontinence #Hx of recurrent UTI per reports send from family there was concern about UTI outpt urine culture obtained today, will obtain UA in ED UA +GNB, pending susceptibilities Continue CTX #COVID 19, incidental #Chronic Hypoxic respiratory failure on 2L of O2 #COPD she does not have increased oxygen requirement;therefore no indication for further therapies pulmonary toilet with flutter valve, incentive spirometry, Mucinex, duonebs discontinued steroids PT/OT Plan for centre care #CKD-4 baseline cr 1.9-2.0 cr stable, avoid nephrotoxic agents repeat bmp #Anemia of chronic disease hgb stable 8.9 no s/sx of bleeding IV venofer x 3 doses continue replacement #Chronic Heart failure with preserved EF #HTN #HLD chronic, stable daily weight, heart healthy diet, I&O continue home meds of clonidine, hydralazine, felodipine, lasix, asa, statin #Ambulatory dysfunction #Chronic B/L Hip congenital deformity #Chronic Pain on Chronic Opoids -fentanyl patch and prn oxy pt wheel chair bound to preserve hip, usual able to help with transfers and assists usually stands, pivot independently and min assist with adls PT/OT After discussion with daughter and patient,patch increased 09/21, continue fentanyl 25 patch #Depression #Anxiety -Continue home lexapro -Continue home xanax bid (also for burning mouth syndrome) DVT ppx: SQ heparin FULL CODE PCP: Dr. Bernard Valenzuela Dispo: admit to med tele, per ED provider family concerned to take pt home with covid dx due to son in law who lives with pt is a transplant pt, pt may benefit from short term rehab stay vs respite care Admission and Anticipated Discharge Date Admission Date: September 20, 2023 Subjective NAEO Patient reports improvement in pain coverage this am with the increased fentanyl dosing Denies any new symptoms Physical Exam Constitutional: WD/WN, vitals as above Respiratory: normal respiratory effort, lungs clear to auscultation scatter rhonchi Cardiovascular: RRR, no murmur, no edema Results & Data Results & Data Vital Signs (Past 12 Hours) Vital Signs Temp Pulse Pulse Resp BP Pulse Ox O2 Del Method 09/22/23 11:43 36.6 C 61 18 172/63 H 97 Nasal Cannula 09/22/23 10:39 51 L 09/22/23 10:35 Nasal Cannula 09/22/23 07:48 36.4 C L 89 18 183/62 H 95 Nasal Cannula 09/22/23 07:32 65 15 95 Nasal Cannula 09/22/23 07:25 36.6 C 61 17 189/62 H 96 Nasal Cannula 09/22/23 03:13 36.4 C L 61 20 169/65 H 96 Nasal Cannula O2 Flow Rate 09/22/23 11:43 2 09/22/23 10:39 09/22/23 10:35 2 09/22/23 07:48 2 09/22/23 07:32 2 09/22/23 07:25 2 09/22/23 03:13 2 Laboratory Results Short CBC 09/22/23 Range/Units 04:37 WBC 5.79 (4.8-10.8) K/ul Hgb 7.9 L (12.0-16.0) g/dl Hct 25.1 L (37.0-47.0) % Plt Count 170 (130-400) K/uL BMP 09/21/23 15:14 Sodium 133 L Potassium 4.8 Chloride 101 Carbon Dioxide 24 BUN 48 H Creatinine 1.82 H Glucose 172 H Calcium 8.4 L Medications Administered Home Medications Medication Instructions Recorded Confirmed Last Taken albuterol sulfate 90 mcg/actuation 2 puff inhalation DIRECTED PRN 12/21/21 09/19/23 03/12/23 aerosol inhaler Shortness Of Breath alprazolam 0.5 mg tablet (Xanax) 0.25 - 0.5 mg PO BID Anxiety 12/21/21 09/19/23 03/11/23 loratadine 10 mg tablet (Claritin) 10 mg PO QAM 12/21/21 09/19/23 03/11/23 pantoprazole 40 mg tablet,delayed 40 mg PO BID 12/21/21 09/19/23 03/11/23 release (Protonix) aspirin 81 mg tablet,delayed 81 mg PO DAILY 04/01/22 09/19/23 03/11/23 release escitalopram oxalate 5 mg tablet 5 mg PO DAILY 06/01/22 09/19/23 03/11/23 ferrous sulfate 325 mg (65 mg 325 mg PO DAILY 06/01/22 09/19/23 03/11/23 iron) tablet fluticasone propionate 50 2 spray intranasal Q12 09/28/22 09/19/23 03/12/23 mcg/actuation nasal spray,suspension multivitamin 1 tab PO DAILY 09/28/22 09/19/23 03/11/23 umeclidinium 62.5 mcg-vilanterol 1 ea inhalation DAILY 09/28/22 09/19/23 03/11/23 25 mcg/actuation powdr for inhalation (Anoro Ellipta) diclofenac sodium 1 % topical gel 2 g EXT Q6H PRN back pain #100 10/03/22 09/19/23 03/11/23 (Voltaren Arthritis Pain) grams sennosides 8.6 mg-docusate sodium 1 tab PO QAM #30 tabs 10/03/22 09/19/23 03/11/23 50 mg tablet (Senokot-S) rosuvastatin 10 mg tablet 10 mg PO HS 03/12/23 09/19/23 03/11/23 felodipine 10 mg tablet,extended 10 mg PO HS 07/18/23 09/19/23 Unknown release 24 hr furosemide 20 mg tablet 20 mg PO QAM #30 tabs 07/22/23 09/19/23 Unknown clonidine HCl 0.1 mg tablet 0.1 mg PO BID 09/19/23 09/19/23 Unknown ergocalciferol (vitamin D2) 1,250 50,000 unit PO WK 09/19/23 09/19/23 Unknown mcg (50,000 unit) capsule fentanyl 12 mcg/hr transdermal 1 patch transdermal Q72H 09/19/23 09/19/23 Unknown patch hydralazine 100 mg tablet 100 mg PO BID 09/19/23 09/19/23 Unknown oxycodone 5 mg tablet 5 mg PO Q8H PRN moderate pain 4-10 09/19/23 09/19/23 Unknown Active Medications Generic Name Dose Route Start Last Admin Trade Name Freq PRN Reason Stop Dose Admin Acetaminophen 650 mg 09/19/23 22:09 09/21/23 21:47 Acetaminophen 325 Mg Tab PO 10/19/23 22:08 650 mg Q4H PRN Administration Pain or Fever Alprazolam 0.25 mg 09/19/23 22:09 09/22/23 07:11 Alprazolam 0.25 Mg Tablet PO 10/19/23 22:08 0.25 mg BID SABAS Administration Aspirin 81 mg 09/20/23 09:00 09/22/23 07:15 Aspirin 81 Mg Ectab PO 10/20/23 08:59 81 mg DAILY SABAS Administration Clonidine HCl 0.1 mg 09/19/23 22:09 09/22/23 07:13 Clonidine Hcl 0.1 Mg Tab PO 10/19/23 22:08 0.1 mg BID SABAS Administration Escitalopram Oxalate 5 mg 09/20/23 09:00 09/22/23 07:15 Escitalopram Oxalate 10 Mg Tab PO 10/20/23 08:59 5 mg DAILY SABAS Administration Felodipine 10 mg 09/19/23 22:09 09/21/23 19:54 Felodipine 5 Mg Tabcr PO 10/19/23 22:08 10 mg HS SABAS Administration Fentanyl 1 patch 09/21/23 14:45 09/21/23 15:22 Fentanyl 25 Mcg/Hr Tdsy TD 10/05/23 14:44 1 patch Q3D@0900 SABAS Administration Ferrous Sulfate 325 mg 09/20/23 09:00 09/22/23 07:16 Ferrous Sulfate 325 Mg Tab PO 10/20/23 08:59 325 mg DAILY SABAS Administration Fluticasone Propionate 2 sprays 09/19/23 22:09 09/22/23 07:18 Fluticasone Propionate Na Spr 16 Gm Btl NA 10/19/23 22:08 2 sprays Q12 SABAS Administration Furosemide 20 mg 09/20/23 09:00 09/21/23 07:40 Furosemide 20 Mg Tab PO 10/20/23 08:59 20 mg QAM SABAS Administration Guaifenesin 1,200 mg 09/19/23 22:09 09/22/23 07:14 Guaifenesin 600 Mg Tabcr PO 10/19/23 22:08 1,200 mg Q12 SABAS Administration Heparin Sodium (Porcine) 5,000 units 09/19/23 22:09 09/22/23 12:36 Heparin Sod 5,000 Unit/0.5 Ml Vial SQ 10/19/23 22:08 5,000 units Q8 SABAS Administration Hydralazine HCl 100 mg 09/19/23 22:09 09/22/23 07:14 Hydralazine Tab 50 Mg Tab PO 10/19/23 22:08 100 mg BID SABAS Administration Ceftriaxone Sodium 2,000 mg in 50 mls @ 100 mls/hr 09/20/23 15:30 09/21/23 16:04 Rocephin IV 09/25/23 15:29 Infused Q24H SABAS Infusion Loratadine 10 mg 09/20/23 09:00 09/22/23 07:17 Loratadine 10 Mg Tab PO 10/20/23 08:59 10 mg QAM SABAS Administration Miscellaneous 1 each 09/20/23 00:00 09/22/23 07:12 Check Fentanyl Patch Placement N/A 10/20/23 00:00 1 each QS SABAS Administration Multivitamins 1 tab 09/20/23 09:00 09/22/23 07:16 Multivitamin Tab PO 10/20/23 08:59 1 tab DAILY SABAS Administration Pantoprazole Sodium 40 mg 09/19/23 22:09 09/22/23 07:14 Pantoprazole 40 Mg Tab PO 10/19/23 22:08 40 mg BID SABAS Administration Phenol 2 sprays 09/19/23 22:09 09/20/23 08:18 Chloraseptic (Phenol) 1.4% Soln 180 Ml Btl MT 10/19/23 22:08 2 sprays TID PRN Administration Sore Throat Polyethylene Glycol 17 gm 09/19/23 22:09 09/20/23 08:19 Polyethylene (Miralax) 17 Gm Pack PO 10/19/23 22:08 17 gm DAILY PRN Administration Constipation Rosuvastatin Calcium 10 mg 09/19/23 22:09 09/21/23 19:54 Rosuvastatin Calcium 10 Mg Tab PO 10/19/23 22:08 10 mg HS SABAS Administration Senna/Docusate Sodium 1 tab 09/20/23 09:00 09/22/23 07:12 Docusate Sodium/Senna 50/8.6mg Tab PO 10/20/23 08:59 1 tab QAM SABAS Administration Sodium Zirconium Cyclosilicate 10 gm 09/21/23 09:00 09/22/23 12:36 Sodium Zirconium Cyclosilicate 10 Gm Packet PO 09/22/23 21:01 10 gm TID SABAS Administration Umeclidinium/Vilanterol 1 puffs 09/20/23 09:00 09/22/23 07:18 Umeclidinium/Vilanterol 62.5/25mcg 7 Puffs/Inhaler INH 10/20/23 08:59 1 puffs DAILY SABAS Administration (5) CKD (chronic kidney disease) Chronic kidney disease stage: unspecified stage Qualified Code(s): N18.9 - Chronic kidney disease, unspecified
[2023-09-22] MEDS: MELATONIN 3 MG TAB PO PRN (23:17)
[2023-09-22] MEDS: hydrALAZINE HCL 20 MG/ML VIAL IV PRN (23:17)
[2023-09-23 06:15] LABS: Hematocrit (blood only) 27.1 % (37.0-47.0); Hemoglobin 8.5 g/dl (12.0-16.0); Mean Corpuscular Hgb Conc 31.4 g/dL (32.0-36.0); Mean Corpuscular Volume 89.1 fL (80.0-100.0); Mean Platelet Volume 10.1 fL (9.4-12.4); Platelet Count 176 K/uL (130-400); RDW Coefficient of Variation 14.6 % (11.5-14.5); RDW Standard Deviation 47.4 fL (36.4-46.3); Red Blood Count 3.04 M/uL (4.20-5.40); White Blood Count 5.39 K/ul (4.8-10.8)
[2023-09-23 06:41] LABS: BUN Creatinine Ratio 23.5 (10-20); Calcium 8.6 mg/dl (8.6-10.3); Creatinine Clr Calc Pharmacy 22.6 ml/min; Est GFR (African American) 29.1 ml/min; Est GFR (Non-African American) 25.1 ml/min; Phosphorus 2.3 mg/dl (2.5-4.9); Potassium 4.7 mmol/L (3.5-5.1)
[2023-09-23] MEDS ORDERED: SODIUM PHOSPHATE 3 MMOL/1 ML INFUSION IV STA (07:07)
[2023-09-23] MEDS: SODIUM PHOSPHATE 15 MMOL in SODIUM CHLORIDE 0.9% 250 ML IV STA (07:55)
[2023-09-23] MEDS: hydrALAZINE TAB 50 MG TAB PO SCH (08:02)
[2023-09-23] MEDS: DICLOFENAC SOD 1% GEL 100 GM TUBE EXT PRN (10:26)
--- NOTE | 2023-09-23 10:30 | Hospitalist Progress Note ---
Date of Service September 23, 2023 Assessment & Plan (1) Chronic respiratory failure: (2) COVID-19: (3) COPD (chronic obstructive pulmonary disease): (4) Hypertensive heart disease with chronic diastolic congestive heart failure: (5) CKD (chronic kidney disease): (6) Weakness: (7) HTN (hypertension): (8) HLD (hyperlipidemia): Plan Ms. Dewey is a 78-year-old female who has significant past medical history of chronic hypoxic respiratory failure on 2-3 L of oxygen, COPD, HTN, HLD, CKD-4, gastritis, GERD, IBS, history of E. coli UTI, depression with anxiety, history of tobacco abuse and wheelchair-bound status who is admitted for COVID infection. Patient reports subjective improvement but notes feeling weak Discussion with daughter revealed symptomatic urinary symptoms, there fore on 09/19 CTX started. UA consistent with infection. Culture pending Patient doing much better on exam. More aware and alert. Pain is persistent issue. Patient recently started on fentanyl patch 12.5mcg. Patient's patch increased on 09/20 to 25mcg. Patient reports improvement in pain this am. #Acute uncomplicated cystitis #Urinary Incontinence #Hx of recurrent UTI per reports send from family there was concern about UTI outpt urine culture obtained today, will obtain UA in ED UA E Coli, resistant to CTX< senstitive to cefepime Transition to cefepime #COVID 19, incidental #Chronic Hypoxic respiratory failure on 2L of O2 #COPD she does not have increased oxygen requirement;therefore no indication for further therapies pulmonary toilet with flutter valve, incentive spirometry, Mucinex, duonebs discontinued steroids PT/OT Plan for centre care #CKD-4 baseline cr 1.9-2.0 cr stable, avoid nephrotoxic agents trend cr #Anemia of chronic disease hgb stable 8.9 no s/sx of bleeding IV venofer x 3 doses continue po replacement #Chronic Heart failure with preserved EF #HTN #HLD chronic, stable daily weight, heart healthy diet, I&O continue home meds of clonidine, hydralazine, felodipine, lasix, asa, statin Increased hydralazine from 100mg BID to TID #Ambulatory dysfunction #Chronic B/L Hip congenital deformity #Chronic Pain on Chronic Opoids -fentanyl patch and prn oxy pt wheel chair bound to preserve hip, usual able to help with transfers and assists usually stands, pivot independently and min assist with adls PT/OT After discussion with daughter and patient,patch increased 09/21, continue fentanyl 25 patch Discussed possible increase to 37.5 tomorrow #Depression #Anxiety -Continue home lexapro -Continue home xanax bid (also for burning mouth syndrome) DVT ppx: SQ heparin FULL CODE PCP: Dr. Bernard Valenzuela Dispo: admit to med tele, per ED provider family concerned to take pt home with covid dx due to son in law who lives with pt is a transplant pt, pt may benefit from short term rehab stay vs respite care Admission and Anticipated Discharge Date Admission Date: September 20, 2023 Subjective NAEO Reports she still always has pain, notes her pain in her mouth and jaw are the worst as always Denies any acute pain--just frustration over baseline pain. Physical Exam Constitutional: WD/WN, vitals as above Respiratory: normal respiratory effort, lungs clear to auscultation occasional rhonchi , stable oxygen requirement Cardiovascular: RRR, no murmur, no edema Results & Data Results & Data Vital Signs (Past 12 Hours) Vital Signs Temp Pulse Pulse Resp BP Pulse Ox O2 Del Method 09/23/23 07:37 64 09/23/23 07:30 36.4 C L 62 18 192/69 H 94 Nasal Cannula 09/23/23 03:53 36.6 C 68 18 151/76 H 95 Nasal Cannula 09/23/23 00:04 60 146/58 H 09/22/23 23:13 36.6 C 80 18 194/69 H 93 Nasal Cannula O2 Flow Rate 09/23/23 07:37 09/23/23 07:30 2 09/23/23 03:53 2 09/23/23 00:04 09/22/23 23:13 2 Laboratory Results Short CBC 09/23/23 Range/Units 05:46 WBC 5.39 (4.8-10.8) K/ul Hgb 8.5 L (12.0-16.0) g/dl Hct 27.1 L (37.0-47.0) % Plt Count 176 (130-400) K/uL BMP 09/23/23 05:46 Sodium 138 Potassium 4.7 Chloride 103 Carbon Dioxide 30 BUN 44 H Creatinine 1.87 H Glucose 86 Calcium 8.6 Medications Administered Home Medications Medication Instructions Recorded Confirmed Last Taken albuterol sulfate 90 mcg/actuation 2 puff inhalation DIRECTED PRN 12/21/21 09/19/23 03/12/23 aerosol inhaler Shortness Of Breath alprazolam 0.5 mg tablet (Xanax) 0.25 - 0.5 mg PO BID Anxiety 12/21/21 09/19/23 03/11/23 loratadine 10 mg tablet (Claritin) 10 mg PO QAM 12/21/21 09/19/23 03/11/23 pantoprazole 40 mg tablet,delayed 40 mg PO BID 12/21/21 09/19/23 03/11/23 release (Protonix) aspirin 81 mg tablet,delayed 81 mg PO DAILY 04/01/22 09/19/23 03/11/23 release escitalopram oxalate 5 mg tablet 5 mg PO DAILY 06/01/22 09/19/23 03/11/23 ferrous sulfate 325 mg (65 mg 325 mg PO DAILY 06/01/22 09/19/23 03/11/23 iron) tablet fluticasone propionate 50 2 spray intranasal Q12 09/28/22 09/19/23 03/12/23 mcg/actuation nasal spray,suspension multivitamin 1 tab PO DAILY 09/28/22 09/19/23 03/11/23 umeclidinium 62.5 mcg-vilanterol 1 ea inhalation DAILY 09/28/22 09/19/23 03/11/23 25 mcg/actuation powdr for inhalation (Anoro Ellipta) diclofenac sodium 1 % topical gel 2 g EXT Q6H PRN back pain #100 10/03/22 09/19/23 03/11/23 (Voltaren Arthritis Pain) grams sennosides 8.6 mg-docusate sodium 1 tab PO QAM #30 tabs 10/03/22 09/19/23 03/11/23 50 mg tablet (Senokot-S) rosuvastatin 10 mg tablet 10 mg PO HS 03/12/23 09/19/23 03/11/23 felodipine 10 mg tablet,extended 10 mg PO HS 07/18/23 09/19/23 Unknown release 24 hr clonidine HCl 0.1 mg tablet 0.1 mg PO BID 09/19/23 09/19/23 Unknown ergocalciferol (vitamin D2) 1,250 50,000 unit PO WK 09/19/23 09/19/23 Unknown mcg (50,000 unit) capsule fentanyl 12 mcg/hr transdermal 1 patch transdermal Q72H 09/19/23 09/19/23 Unknown patch hydralazine 100 mg tablet 100 mg PO BID 09/19/23 09/19/23 Unknown oxycodone 5 mg tablet 5 mg PO Q8H PRN moderate pain 4-10 09/19/23 09/19/23 Unknown furosemide 20 mg tablet 20 mg [id number] 09/22/23 09/22/23 Unknown Active Medications Generic Name Dose Route Start Last Admin Trade Name Freq PRN Reason Stop Dose Admin Acetaminophen 650 mg 09/19/23 22:09 09/23/23 08:07 Acetaminophen 325 Mg Tab PO 10/19/23 22:08 650 mg Q4H PRN Administration Pain or Fever Aspirin 81 mg 09/20/23 09:00 09/23/23 08:05 Aspirin 81 Mg Ectab PO 10/20/23 08:59 81 mg DAILY SABAS Administration Clonidine HCl 0.1 mg 09/19/23 22:09 09/23/23 08:05 Clonidine Hcl 0.1 Mg Tab PO 10/19/23 22:08 0.1 mg BID SABAS Administration Diclofenac Sodium 2 gm 09/19/23 22:09 09/23/23 10:26 Diclofenac Sod 1% Gel 100 Gm Tube EXT 10/19/23 22:08 2 gm Q6H PRN Administration back pain Protocol Escitalopram Oxalate 5 mg 09/20/23 09:00 09/23/23 08:06 Escitalopram Oxalate 10 Mg Tab PO 10/20/23 08:59 5 mg DAILY SABAS Administration Felodipine 10 mg 09/19/23 22:09 09/22/23 20:08 Felodipine 5 Mg Tabcr PO 10/19/23 22:08 10 mg HS SABAS Administration Fentanyl 1 patch 09/21/23 14:45 09/21/23 15:22 Fentanyl 25 Mcg/Hr Tdsy TD 10/05/23 14:44 1 patch Q3D@0900 SABAS Administration Ferrous Sulfate 325 mg 09/20/23 09:00 09/23/23 08:06 Ferrous Sulfate 325 Mg Tab PO 10/20/23 08:59 325 mg DAILY SABAS Administration Fluticasone Propionate 2 sprays 09/19/23 22:09 09/23/23 08:08 Fluticasone Propionate Na Spr 16 Gm Btl NA 10/19/23 22:08 2 sprays Q12 SABAS Administration Furosemide 20 mg 09/20/23 09:00 09/21/23 07:40 Furosemide 20 Mg Tab PO 10/20/23 08:59 20 mg QAM SABAS Administration Guaifenesin 1,200 mg 09/19/23 22:09 09/23/23 08:02 Guaifenesin 600 Mg Tabcr PO 10/19/23 22:08 1,200 mg Q12 SABAS Administration Heparin Sodium (Porcine) 5,000 units 09/19/23 22:09 09/23/23 05:50 Heparin Sod 5,000 Unit/0.5 Ml Vial SQ 10/19/23 22:08 5,000 units Q8 SABAS Administration Hydralazine HCl 7.5 mg 09/22/23 22:51 09/22/23 23:17 Hydralazine Hcl 20 Mg/Ml Vial IV 10/22/23 22:50 7.5 mg Q6H PRN Administration Hypertension Hydralazine HCl 100 mg 09/23/23 09:00 09/23/23 08:02 Hydralazine Tab 50 Mg Tab PO 10/23/23 08:59 100 mg TID SABAS Administration Loratadine 10 mg 09/20/23 09:00 09/23/23 08:05 Loratadine 10 Mg Tab PO 10/20/23 08:59 10 mg QAM SABAS Administration Melatonin 6 mg 09/19/23 22:09 09/22/23 23:17 Melatonin 3 Mg Tab PO 10/19/23 22:08 6 mg HS PRN Administration Sleep Miscellaneous 1 each 09/20/23 00:00 09/23/23 08:08 Check Fentanyl Patch Placement N/A 10/20/23 00:00 1 each QS SABAS Administration Miscellaneous 1 each 09/22/23 20:59 09/22/23 20:19 Fentanyl Patch Remove & Waste N/A 10/22/23 20:58 Not Given Q72H SABAS Multivitamins 1 tab 09/20/23 09:00 09/23/23 08:06 Multivitamin Tab PO 10/20/23 08:59 1 tab DAILY SABAS Administration Pantoprazole Sodium 40 mg 09/19/23 22:09 09/23/23 08:02 Pantoprazole 40 Mg Tab PO 10/19/23 22:08 40 mg BID SABAS Administration Phenol 2 sprays 09/19/23 22:09 09/20/23 08:18 Chloraseptic (Phenol) 1.4% Soln 180 Ml Btl MT 10/19/23 22:08 2 sprays TID PRN Administration Sore Throat Polyethylene Glycol 17 gm 09/19/23 22:09 09/20/23 08:19 Polyethylene (Miralax) 17 Gm Pack PO 10/19/23 22:08 17 gm DAILY PRN Administration Constipation Rosuvastatin Calcium 10 mg 09/19/23 22:09 09/22/23 20:08 Rosuvastatin Calcium 10 Mg Tab PO 10/19/23 22:08 10 mg HS SABAS Administration Senna/Docusate Sodium 1 tab 09/20/23 09:00 09/23/23 08:06 Docusate Sodium/Senna 50/8.6mg Tab PO 10/20/23 08:59 1 tab QAM SABAS Administration Umeclidinium/Vilanterol 1 puffs 09/20/23 09:00 09/23/23 08:08 Umeclidinium/Vilanterol 62.5/25mcg 7 Puffs/Inhaler INH 10/20/23 08:59 1 puffs DAILY SABAS Administration (5) CKD (chronic kidney disease) Chronic kidney disease stage: unspecified stage Qualified Code(s): N18.9 - Chronic kidney disease, unspecified
[2023-09-23] MEDS: CEFEPIME 2,000 MG in SYRINGE 0 ML IV STA (11:32)
[2023-09-23] MEDS: CYCLOBENZAPRINE HCL 5 MG TAB PO STA (16:59)
[2023-09-23] MEDS: oxyCODONE HCL IR 5 MG TAB (IMMEDIATE RELEASE) PO PRN (18:35)
[2023-09-23] MEDS: MoRPHine SULFATE 2 MG/ML CARP IV STA (18:40)
[2023-09-23] MEDS: ALPRAZolam 0.5 MG TABLET PO SCH (20:09)
[2023-09-24 08:09] LABS: Hematocrit (blood only) 26.6 % (37.0-47.0); Hemoglobin 8.4 g/dl (12.0-16.0); Mean Corpuscular Hemoglobin 27.9 pg (25.0-34.0); Mean Corpuscular Hgb Conc 31.6 g/dL (32.0-36.0); Mean Corpuscular Volume 88.4 fL (80.0-100.0); Mean Platelet Volume 10.2 fL (9.4-12.4); Platelet Count 181 K/uL (130-400); RDW Coefficient of Variation 14.5 % (11.5-14.5); RDW Standard Deviation 46.6 fL (36.4-46.3); Red Blood Count 3.01 M/uL (4.20-5.40); White Blood Count 5.22 K/ul (4.8-10.8)
[2023-09-24 08:29] LABS: BUN Creatinine Ratio 24.1 (10-20); Calcium 8.7 mg/dl (8.6-10.3); Creatinine Clr Calc Pharmacy 26.9 ml/min; Est GFR (African American) 35.7 ml/min; Est GFR (Non-African American) 30.8 ml/min; Magnesium 1.8 mg/dl (1.7-2.4); Phosphorus 2.3 mg/dl (2.5-4.9); Potassium 4.5 mmol/L (3.5-5.1)
[2023-09-24] MEDS: fentaNYL 12 MCG/HR TDSY TD SCH (09:30)
--- NOTE | 2023-09-24 13:47 | Hospitalist Progress Note ---
Date of Service September 24, 2023 Assessment & Plan (1) Chronic respiratory failure: (2) COVID-19: (3) COPD (chronic obstructive pulmonary disease): (4) Hypertensive heart disease with chronic diastolic congestive heart failure: (5) CKD (chronic kidney disease): (6) Weakness: (7) HTN (hypertension): (8) HLD (hyperlipidemia): Plan Ms. Dewey is a 78-year-old female who has significant past medical history of chronic hypoxic respiratory failure on 2-3 L of oxygen, COPD, HTN, HLD, CKD-4, gastritis, GERD, IBS, history of E. coli UTI, depression with anxiety, history of tobacco abuse and wheelchair-bound status who is admitted for COVID infection. Patient reports subjective improvement but notes feeling weak Discussion with daughter revealed symptomatic urinary symptoms, there fore on 09/19 CTX started. UA consistent with infection. Culture pending Patient doing much better on exam. More aware and alert. Pain is persistent issue. Patient recently started on fentanyl patch 12.5mcg. Patient's patch increased on 09/20 to 25mcg. Patient with considerable breakthrough pain on and off. Attempting to help control symptoms. Increased patch to 37.5 mcg. Discussed close follow up needed with PCP. Given plans for transfer to [facility] tomorrow, attempted to find oral alternative but patient with notable adverse reactions to all oral alternatives. Discussed fosfomycin use with pharmacy. plan for 1 time dose to complete abx course. #Acute uncomplicated cystitis #Urinary Incontinence #Hx of recurrent UTI per reports send from family there was concern about UTI outpt urine culture obtained today, will obtain UA in ED UA E Coli, resistant to CTX< sensitive to cefepim, discontinue Order 1 time fosfomycin given multiple medications with intolerance #COVID 19, incidental #Chronic Hypoxic respiratory failure on 2L of O2 #COPD she does not have increased oxygen requirement;therefore no indication for further therapies pulmonary toilet with flutter valve, incentive spirometry, Mucinex, duonebs discontinued steroids Plan for centre care #CKD-4 baseline cr 1.9-2.0, remains stable cr stable, avoid nephrotoxic agents trend cr #Anemia of chronic disease hgb stable 8.9 no s/sx of bleeding IV venofer x 3 doses continue po replacement #Chronic Heart failure with preserved EF #HTN #HLD chronic, stable daily weight, heart healthy diet, I&O continue home meds of clonidine, hydralazine, felodipine, lasix, asa, statin Continue hydralazine from 100mg BID to TID #Ambulatory dysfunction #Chronic B/L Hip congenital deformity #Chronic Pain on Chronic Opoids -fentanyl patch and prn oxy pt wheel chair bound to preserve hip, usual able to help with transfers and assists usually stands, pivot independently and min assist with adls PT/OT After discussion with daughter and patient,patch increased 09/20, continue fentanyl 25 patch Increased patch to 37.5mcg daily 09/23 to limit use of oxycodone #Depression #Anxiety -Continue home lexapro -Continue home xanax bid (also for burning mouth syndrome) DVT ppx: SQ heparin FULL CODE PCP: Dr. Bernard Valenzuela Dispo: admit to med tele, per ED provider family concerned to take pt home with covid dx due to son in law who lives with pt is a transplant pt, pt may benefit from short term rehab stay vs respite care Admission and Anticipated Discharge Date Admission Date: September 20, 2023 Subjective Reports more breakthrough pain with movement, however in bedside chair this am Stable respiratory status Discussed increasing fent. patch to help, but noted that there will always be some degree of pain, so we must balance pain control v side effects of medications Patient verbalized understanding Physical Exam Constitutional: WD/WN, vitals as above Respiratory: normal respiratory effort, lungs clear to auscultation (stable oxygen requirements, trace rhonchi, no dyspnea noted ) Cardiovascular: RRR, no murmur, no edema Gastrointestinal (Abdomen): normal bowel sounds, soft, nontender, no hepatospl enomegaly Results & Data Results & Data Vital Signs (Past 12 Hours) Vital Signs Temp Pulse Pulse Resp BP BP Pulse Ox 09/24/23 09:00 09/24/23 08:01 37.5 C 65 18 185/65 H 94 09/24/23 07:17 60 09/24/23 03:42 36.6 C 62 18 169/74 H 95 O2 Del Method O2 Flow Rate 09/24/23 09:00 Nasal Cannula 2 09/24/23 08:01 Nasal Cannula 2 09/24/23 07:17 09/24/23 03:42 Nasal Cannula 2 Laboratory Results Short CBC 09/24/23 Range/Units 07:29 WBC 5.22 (4.8-10.8) K/ul Hgb 8.4 L (12.0-16.0) g/dl Hct 26.6 L (37.0-47.0) % Plt Count 181 (130-400) K/uL [facility] 09/24/23 07:29 Sodium 139 Potassium 4.5 Chloride 104 Carbon Dioxide 31 BUN 38 H Creatinine 1.58 H Glucose 96 Calcium 8.7 Medications Administered Home Medications Medication Instructions Recorded Confirmed Last Taken albuterol sulfate 90 mcg/actuation 2 puff inhalation DIRECTED PRN 12/21/21 09/19/23 03/12/23 aerosol inhaler Shortness Of Breath alprazolam 0.5 mg tablet (Xanax) 0.25 - 0.5 mg PO BID Anxiety 12/21/21 09/19/23 03/11/23 loratadine 10 mg tablet (Claritin) 10 mg PO QAM 12/21/21 09/19/23 03/11/23 pantoprazole 40 mg tablet,delayed 40 mg PO BID 12/21/21 09/19/23 03/11/23 release (Protonix) aspirin 81 mg tablet,delayed 81 mg PO DAILY 04/01/22 09/19/23 03/11/23 release escitalopram oxalate 5 mg tablet 5 mg PO DAILY 06/01/22 09/19/23 03/11/23 ferrous sulfate 325 mg (65 mg 325 mg PO DAILY 06/01/22 09/19/23 03/11/23 iron) tablet fluticasone propionate 50 2 spray intranasal Q12 09/28/22 09/19/23 03/12/23 mcg/actuation nasal spray,suspension multivitamin 1 tab PO DAILY 09/28/22 09/19/23 03/11/23 umeclidinium 62.5 mcg-vilanterol 1 ea inhalation DAILY 09/28/22 09/19/23 03/11/23 25 mcg/actuation powdr for inhalation (Anoro Ellipta) diclofenac sodium 1 % topical gel 2 g EXT Q6H PRN back pain #100 10/03/22 09/19/23 03/11/23 (Voltaren Arthritis Pain) grams sennosides 8.6 mg-docusate sodium 1 tab PO QAM #30 tabs 10/03/22 09/19/23 03/11/23 50 mg tablet (Senokot-S) rosuvastatin 10 mg tablet 10 mg PO HS 03/12/23 09/19/23 03/11/23 felodipine 10 mg tablet,extended 10 mg PO HS 07/18/23 09/19/23 Unknown release 24 hr clonidine HCl 0.1 mg tablet 0.1 mg PO BID 09/19/23 09/19/23 Unknown ergocalciferol (vitamin D2) 1,250 50,000 unit PO WK 09/19/23 09/19/23 Unknown mcg (50,000 unit) capsule fentanyl 12 mcg/hr transdermal 1 patch transdermal Q72H 09/19/23 09/19/23 Unknown patch hydralazine 100 mg tablet 100 mg PO BID 09/19/23 09/19/23 Unknown oxycodone 5 mg tablet 5 mg PO Q8H PRN moderate pain 4-10 09/19/23 09/19/23 Unknown furosemide 20 mg tablet 20 mg 3XWK 09/22/23 09/22/23 Unknown Active Medications Generic Name Dose Route Start Last Admin Trade Name [facility] PRN Reason Stop Dose Admin Acetaminophen 650 mg 09/19/23 22:09 09/23/23 08:07 Acetaminophen 325 Mg Tab PO 10/19/23 22:08 650 mg Q4H PRN Administration Pain or Fever Alprazolam 0.5 mg 09/23/23 21:00 09/24/23 09:08 Alprazolam 0.5 Mg Tablet PO 10/23/23 20:59 0.5 mg BID SABAS Administration Aspirin 81 mg 09/20/23 09:00 09/24/23 09:08 Aspirin 81 Mg Ectab PO 10/20/23 08:59 81 mg DAILY SABAS Administration Clonidine HCl 0.1 mg 09/19/23 22:09 09/24/23 09:08 Clonidine Hcl 0.1 Mg Tab PO 10/19/23 22:08 0.1 mg BID SABAS Administration Diclofenac Sodium 2 gm 09/19/23 22:09 09/23/23 10:26 Diclofenac Sod 1% Gel 100 Gm Tube EXT 10/19/23 22:08 2 gm Q6H PRN Administration back pain Protocol Escitalopram Oxalate 5 mg 09/20/23 09:00 09/24/23 09:09 Escitalopram Oxalate 10 Mg Tab PO 10/20/23 08:59 5 mg DAILY SABAS Administration Felodipine 10 mg 09/19/23 22:09 09/23/23 20:09 Felodipine 5 Mg Tabcr PO 10/19/23 22:08 10 mg HS SABAS Administration Fentanyl 1 patch 09/21/23 14:45 09/24/23 09:30 Fentanyl 25 Mcg/Hr Tdsy TD 10/05/23 14:44 1 patch Q3D@0900 SABAS Administration Fentanyl 1 patch 09/24/23 09:30 09/24/23 09:30 Fentanyl 12 Mcg/Hr Tdsy TD 10/08/23 09:29 1 patch Q3D SABAS Administration Protocol Ferrous Sulfate 325 mg 09/20/23 09:00 09/24/23 09:09 Ferrous Sulfate 325 Mg Tab PO 10/20/23 08:59 325 mg DAILY SABAS Administration Fluticasone Propionate 2 sprays 09/19/23 22:09 09/24/23 09:10 Fluticasone Propionate Na Spr 16 Gm Btl NA 10/19/23 22:08 2 sprays Q12 SABAS Administration Furosemide 20 mg 09/20/23 09:00 09/21/23 07:40 Furosemide 20 Mg Tab PO 10/20/23 08:59 20 mg QAM SABAS Administration Guaifenesin 1,200 mg 09/19/23 22:09 09/24/23 09:08 Guaifenesin 600 Mg Tabcr PO 10/19/23 22:08 1,200 mg Q12 SABAS Administration Heparin Sodium (Porcine) 5,000 units 09/19/23 22:09 09/24/23 05:46 Heparin Sod 5,000 Unit/0.5 Ml Vial SQ 10/19/23 22:08 5,000 units Q8 SABAS Administration Hydralazine HCl 7.5 mg 09/22/23 22:51 09/22/23 23:17 Hydralazine Hcl 20 Mg/Ml Vial IV 10/22/23 22:50 7.5 mg Q6H PRN Administration Hypertension Hydralazine HCl 100 mg 09/23/23 09:00 09/24/23 09:08 Hydralazine Tab 50 Mg Tab PO 10/23/23 08:59 100 mg TID SABAS Administration Loratadine 10 mg 09/20/23 09:00 09/24/23 09:09 Loratadine 10 Mg Tab PO 10/20/23 08:59 10 mg QAM SABAS Administration Melatonin 6 mg 09/19/23 22:09 09/23/23 20:09 Melatonin 3 Mg Tab PO 10/19/23 22:08 6 mg HS PRN Administration Sleep Miscellaneous 1 each 09/20/23 00:00 09/24/23 09:09 Check Fentanyl Patch Placement N/A 10/20/23 00:00 1 each QS SABAS Administration Miscellaneous 1 each 09/22/23 20:59 09/22/23 20:19 Fentanyl Patch Remove & Waste N/A 10/22/23 20:58 Not Given Q72H SABAS Miscellaneous 1 each 09/24/23 09:30 09/24/23 09:31 Fentanyl Patch Remove & Waste N/A 10/24/23 09:29 1 each Q3D SABAS Administration Multivitamins 1 tab 09/20/23 09:00 09/24/23 09:08 Multivitamin Tab PO 10/20/23 08:59 1 tab DAILY SABAS Administration Pantoprazole Sodium 40 mg 09/19/23 22:09 09/24/23 09:08 Pantoprazole 40 Mg Tab PO 10/19/23 22:08 40 mg BID SABAS Administration Phenol 2 sprays 09/19/23 22:09 09/20/23 08:18 Chloraseptic (Phenol) 1.4% Soln 180 Ml Btl MT 10/19/23 22:08 2 sprays TID PRN Administration Sore Throat Polyethylene Glycol 17 gm 09/19/23 22:09 09/20/23 08:19 Polyethylene (Miralax) 17 Gm Pack PO 10/19/23 22:08 17 gm DAILY PRN Administration Constipation Rosuvastatin Calcium 10 mg 09/19/23 22:09 09/23/23 20:09 Rosuvastatin Calcium 10 Mg Tab PO 10/19/23 22:08 10 mg HS SABAS Administration Senna/Docusate Sodium 1 tab 09/20/23 09:00 09/24/23 09:09 Docusate Sodium/Senna 50/8.6mg Tab PO 10/20/23 08:59 Not Given QAM SABAS Umeclidinium/Vilanterol 1 puffs 09/20/23 09:00 09/24/23 09:10 Umeclidinium/Vilanterol 62.5/25mcg 7 Puffs/Inhaler INH 10/20/23 08:59 1 puffs DAILY SABAS Administration (5) CKD (chronic kidney disease) Chronic kidney disease stage: unspecified stage Qualified Code(s): N18.9 - Chronic kidney disease, unspecified
[2023-09-24] MEDS: FOSFOMYCIN TROMETHAMINE 3 GM PACKET PO SCH (14:24)
[2023-09-24] MEDS: POT PHOSPHATE MONOBASIC W/ SOD TAB PO SCH (16:48)
[2023-09-24] MEDS: CHECK fentaNYL PATCH PLACEMENT SCH (16:49)
[2023-09-24] MEDS: oxyCODONE HCL IR 5 MG TAB (IMMEDIATE RELEASE) PO STA (20:25)
[2023-09-25 07:45] LABS: Hematocrit (blood only) 28.1 % (37.0-47.0); Hemoglobin 8.8 g/dl (12.0-16.0); Mean Corpuscular Hemoglobin 28.2 pg (25.0-34.0); Mean Corpuscular Hgb Conc 31.3 g/dL (32.0-36.0); Mean Corpuscular Volume 90.1 fL (80.0-100.0); Mean Platelet Volume 9.9 fL (9.4-12.4); Platelet Count 177 K/uL (130-400); RDW Coefficient of Variation 14.6 % (11.5-14.5); RDW Standard Deviation 48.1 fL (36.4-46.3); Red Blood Count 3.12 M/uL (4.20-5.40); White Blood Count 5.74 K/ul (4.8-10.8)
[2023-09-25 08:14] LABS: BUN Creatinine Ratio 22.8 (10-20); Calcium 8.8 mg/dl (8.6-10.3); Creatinine Clr Calc Pharmacy 24.6 ml/min; Est GFR (African American) 32.4 ml/min; Magnesium 1.7 mg/dl (1.7-2.4); Phosphorus 2.6 mg/dl (2.5-4.9); Potassium 4.6 mmol/L (3.5-5.1)
[2023-09-25] MEDS: FAMOTIDINE 20 MG TAB PO PRN (08:30)
--- NOTE | 2023-09-25 12:47 | Discharge Summary ---
Discharge Summary Date of Service September 25, 2023 Principal Dx & Hospital Course #1 = Principal Diagnosis (1) Chronic respiratory failure: (2) COVID-19: (3) COPD (chronic obstructive pulmonary disease): (4) Hypertensive heart disease with chronic diastolic congestive heart failure: (5) CKD (chronic kidney disease): (6) Weakness: (7) HTN (hypertension): (8) HLD (hyperlipidemia): Plan Ms. Dewey is a 78-year-old female who has significant past medical history of chronic hypoxic respiratory failure on 2-3 L of oxygen, COPD, HTN, HLD, CKD-4, gastritis, GERD, IBS, history of E. coli UTI, depression with anxiety, history of tobacco abuse and wheelchair-bound status who is admitted for COVID infection. Patient respiratory status remained stable, however, UA on admission suspcious for infection. Discussion with daughter revealed symptomatic urinary symptoms, there fore on 09/19 CTX started. UA consistent with infection. Culture revealed CTX resistent E Coli, therefore after discussion with pharmacy regarding best PO regimen given reported ADR, patient given fosfomycin x 1 on 09/23. Pain is persistent issue. Patient recently started on fentanyl patch 12.5mcg. Patient's patch increased on 09/20 to 25mcg. Patient with considerable breakthrough pain on and off. Attempting to help control symptoms. Increased patch to 37.5 mcg; however, patient reported feeling too sleepy with increase therefore reduced to 25mcg on dischagre. Advised patient to discuss further with PCP. Given patient's COVID status and current residence with son-in-law who is immunocompromised, patient to go to [facility] for rehab. On day of discharge, patient denied any new concerns. #Acute uncomplicated cystitis #Urinary Incontinence #Hx of recurrent UTI per reports send from family there was concern about UTI outpt urine culture obtained today, will obtain UA in ED UA E Coli, resistant to CTX< sensitive to cefepim, discontinue Order 1 time fosfomycin given multiple medications with intolerance s/p dose on 09/23 #COVID 19, incidental #Chronic Hypoxic respiratory failure on 2L of O2 #COPD she does not have increased oxygen requirement;therefore no indication for further therapies pulmonary toilet with flutter valve, incentive spirometry, Mucinex, duonebs discontinued steroids Stable on DC #CKD-4 baseline cr 1.9-2.0, remains stable cr stable, avoid nephrotoxic agents #Anemia of chronic disease hgb stable 8.9 no s/sx of bleeding IV venofer x 3 doses continue po replacement #Chronic Heart failure with preserved EF #HTN #HLD chronic, stable daily weight, heart healthy diet, I&O continue home meds of clonidine, hydralazine, felodipine, lasix, asa, statin Increased hydralazine from 100mg BID to TID #Ambulatory dysfunction #Chronic B/L Hip congenital deformity #Chronic Pain on Chronic Opoids -fentanyl patch and prn oxy pt wheel chair bound to preserve hip, usual able to help with transfers and assists usually stands, pivot independently and min assist with adls PT/OT After discussion with daughter and patient,patch increased 09/20, continue fentanyl 25 patch Increased patch to 37.5mcg daily 09/23 to limit use of oxycodone; however, reduced back to 25mcg given patient concerns #Depression #Anxiety -Continue home lexapro -Continue home xanax bid (also for burning mouth syndrome) Notes For Next Care Provider Medication Changes From Visit Increased hydralazine 100mg TID Increased fentanyl patch 25mcg Admission HPI Per Admitting Provider This is a 78-year-old female who has significant past medical history of chronic hypoxic respiratory failure on 2-3 L of oxygen, COPD, HTN, HLD, CKD-4, gastritis, GERD, IBS, history of E. coli UTI, depression with anxiety, history of tobacco abuse and wheelchair-bound status who presents to ED secondary to SOB x 2 days. She reports sore throat, fever of 101, productive cream-colored cough, generalized malaise and weakness that started last evening. She lives at home with her daughter and son-in-law. She denies sick contacts. She generally feels unwell. She has taken all of her medications today. She states that she always feels cold but denies any sweats. She further denies any lightheadedness, dizziness, chest pain, worsening shortness of breath, orthopnea, PND, nausea, vomiting, abdominal pain, Dysuria, increased urgency or frequency with urination, melena or hematochezia. She feels hungry and is requesting food as she has not ate all day. No family members are at bedside. She is wheel chair bound and can self transfer at baseline. Hx also obtained from ED provider who states she spoke to family and pts son in law is a transplant pt; therefore family does not want to take patient home. ED provider discussed with CM to determine if she would be a respite candidate and she was recommended for admission. In ED pt remained hemodynamically stable. She was not requiring any increased oxygen. CXR was negative for acute abnormality. Resp biorefire + SARS COV2. Further history obtained from paper report that was sent in from daughter. According to documentation patient was weak and fell x 2 to the sitting position. No lucia injury and it was found that patient was not alert as normal and slow to respond. There was also concern about incontinence of urine which was abnormal for patient. She is been increasingly fatigued falling asleep more easily. There was concern about possible UTI and therefore a UA C&S was ordered on 09 17 as an outpatient. Pt last hospitalized in July for acute hypoxic resp failure in setting of PNA and CHF Admission Exam Per Admitting Provider Constitutional: Elderly, F, vitals as above, NAD, sitting up in bed, pleasant, conversing easily Head: Normocephalic, Atraumatic Eyes: PERRL, conjunctivae normal, anicteric sclerae ENMT: external ear and nose normal, oropharynx normal Neck: trachea midline, no thyromegaly normal visual inspection Respiratory: normal respiratory effort, lungs clear to auscultation with b/l upper lobe rhonchi, scant RLL exp wheeze otherwise no rales/rhonchi. Normal insp/exp effort, no accessory muscle use, ON 3L of O2 via NC Cardiovascular: RRR, no murmur, no edema Vessels: no JVD or carotid bruit Chest: normal inspection of chest Abdomen: normal bowel sounds, soft, nontender, no hepatosplenomegaly Musculoskeletal: no cyanosis or clubbing, AROM x 4 Skin: no rashes, warm and dry normal turgor Neurologic: no face palsy, no dysarthria CN's II-XI intact bilaterally and moves all extremities Psychiatric: A+Ox3, euthymic affect : deferred Discharge Exam Constitutional WD/WN, vitals as above Respiratory normal respiratory effort, lungs clear to auscultation (stable oxygen requirements, trace rhonchi, no dyspnea noted ) Cardiovascular RRR, no murmur, no edema Gastrointestinal (Abdomen) normal bowel sounds, soft, nontender, no hepatosplenomegaly Updated Medication List Medication Instructions Recorded Confirmed Type albuterol sulfate 90 mcg/actuation 2 puff inhalation DIRECTED PRN 12/21/21 09/19/23 History aerosol inhaler Shortness Of Breath alprazolam 0.5 mg tablet (Xanax) 0.25 - 0.5 mg PO BID Anxiety 12/21/21 09/19/23 History loratadine 10 mg tablet (Claritin) 10 mg PO QAM 12/21/21 09/19/23 History pantoprazole 40 mg tablet,delayed 40 mg PO BID 12/21/21 09/19/23 History release (Protonix) aspirin 81 mg tablet,delayed 81 mg PO DAILY 04/01/22 09/19/23 History release escitalopram oxalate 5 mg tablet 5 mg PO DAILY 06/01/22 09/19/23 History ferrous sulfate 325 mg (65 mg 325 mg PO DAILY 06/01/22 09/19/23 History iron) tablet fluticasone propionate 50 2 spray intranasal Q12 09/28/22 09/19/23 History mcg/actuation nasal spray,suspension multivitamin 1 tab PO DAILY 09/28/22 09/19/23 History umeclidinium 62.5 mcg-vilanterol 1 ea inhalation DAILY 09/28/22 09/19/23 History 25 mcg/actuation powdr for inhalation (Anoro Ellipta) diclofenac sodium 1 % topical gel 2 g EXT Q6H PRN back pain #100 10/03/22 09/19/23 Rx (Voltaren Arthritis Pain) grams sennosides 8.6 mg-docusate sodium 1 tab PO QAM #30 tabs 10/03/22 09/19/23 Rx 50 mg tablet (Senokot-S) rosuvastatin 10 mg tablet 10 mg PO HS 03/12/23 09/19/23 History felodipine 10 mg tablet,extended 10 mg PO HS 07/18/23 09/19/23 History release 24 hr clonidine HCl 0.1 mg tablet 0.1 mg PO BID 09/19/23 09/19/23 History ergocalciferol (vitamin D2) 1,250 50,000 unit PO WK 09/19/23 09/19/23 History mcg (50,000 unit) capsule oxycodone 5 mg tablet 5 mg PO Q8H PRN moderate pain 4-10 09/19/23 09/19/23 History furosemide 20 mg tablet 20 mg 3XWK 09/22/23 09/22/23 History fentanyl 25 mcg/hr transdermal 1 patch transdermal Q3D@0900 #10 ea 09/25/23 Rx patch hydralazine 100 mg tablet 100 mg PO TID #90 tabs 09/25/23 Rx Hospital Stay Data Consultations 09/19/23 17:04 ED Decision to Admit Stat Pending Results Patient Have Any Pending Studies at Discharge: No Discharge Instructions Given to Patient (Per Discharging Provider) You were admitted for confusion and found to have a urinary tract infection. You completed a course of antibiotics You were noted to be COVID positive, but your respiratory status remained stable . You blood pressure was notable elevated, therefore your hydralazine was increased to 100mg three times a day. Your pain regimen was adjusted: you increased your fentanyl patch from 12 to 25mcg every three days Total Time Total Time Spent Total Time Spent (In Minutes): 35
== END 2023-09-25 16:14 | DRG 178 ==
LOC: 2W 11:34 → ED 11:34 → SUATTDRO 17:54 → 2W 21:44